=== PATIENT | male | born 1940 | race Hispanic/Latino ===

== ENCOUNTER 2016-07-10 14:55 | Inpatient (IN) | payer MEDICARE ==
[2016-07-10] MEDS ORDERED: Piperacillin/Tazobact 3.375 GM in Sodium Chloride 0.9% 100 ML IVPB STA (15:24)
[2016-07-10] MEDS ORDERED: Vancomycin 1 g Inj ONE ×2 (15:54→17:11)
--- NOTE | 2016-07-10 16:04 | RAD ---
HISTORY: Sepsis Patient COMPARISON: No prior. FINDINGS: LUNGS: No pulmonary infiltrate visualized. Minimal linear scar/ atelectasis at right lung base. There is an apparent nodular opacity at the right lung apex, overlapping the anterior end of the 1st rib. Evaluation with an apical lordotic radiograph is advised for further evaluation. Ultimately, CT examination may be necessary. PLEURA: No significant pleural effusion identified, no pneumothorax apparent. CARDIOVASCULAR: Normal. OSSEOUS STRUCTURES: No significant abnormalities. VISUALIZED UPPER ABDOMEN: Normal. OTHER FINDINGS: None. IMPRESSION: Nodular opacity in right lung apex obscured by anterior and right 1st rib. Recommend apical lordotic chest radiograph for further evaluation.
--- NOTE | 2016-07-10 16:33 | ED PDOC ---
Lower Extremity Pain/Injury Time Seen by Provider: 07/10/16 15:11 Chief Complaint (Nursing): Fever Chief Complaint (Provider): Fever History Per: Patient History/Exam Limitations: no limitations Onset/Duration Of Symptoms: Days Current Symptoms Are (Timing): Still Present Severity: Moderate Additional Complaint(s): Patient is a 75 year old male who presents to ED for right foot pain for 1 week. Pain is described as sharp to posterior foot with radiation up the leg. Notes pain has been worsening since onset associated with erythema and swelling that is also radiating up the leg now. Patient reports subjective fevers, dizziness and body aches, evaluated at podiatry office today with an area of the foot drained. I&D performed without complications but patient was found to be febrile in the office so he was referred to ED for further evaluation. Reports taking Aleve and Tramadol for his chronic lung CA pain. Denies trauma to the foot. History of Lung CA, under going immunotherapy in [place]. Past Medical History Reviewed: Historical Data, Nursing Documentation, Vital Signs Vital Signs: Last Vital Signs Temp 98.2 F 07/10/16 15:02 Pulse 98 H 07/10/16 15:02 Resp 18 07/10/16 15:02 BP 143/79 07/10/16 15:02 Pulse Ox 97 07/10/16 15:02 - Medical History PMH: HTN, Malignancy (Lung CA) - Surgical History Surgical History: No Surg Hx - Family History Family History: States: No Known Family Hx - Social History Current smoker - smoking cessation education provided: No Ex-Smoker (has not smoked in the last 12 months): No Drugs: Denies - Home Medications Home Medications: Ambulatory Orders Medication Instructions Recorded Acetaminophen/Codeine 10 ml PO DAILY PRN 07/10/16 [Tylenol/Codeine elixir] Benazepril HCl [Lotensin] 20 mg PO DAILY 07/10/16 Cephalexin [Keflex] 500 mg PO TID 07/10/16 Diclofenac Sodium [Voltaren] 1 appful ID DAILY 07/10/16 Enalapril Maleate [Vasotec] 20 mg PO DAILY 07/10/16 Mupirocin 2% Ointment [Bactroban 1 appful ID DAILY 07/10/16 Ointment] Naproxen Sodium [Aleve] 220 mg PO DAILY 07/10/16 Omeprazole Magnesium [Prilosec] 10 mg PO DAILY 07/10/16 Ondansetron ODT [Zofran ODT] 8 mg PO Q8 PRN 07/10/16 Prednisone [Prednisone] 10 mg PO DAILY 07/10/16 Tamsulosin [Flomax] 0.4 mg PO DAILY 07/10/16 Zolpidem [Ambien] 10 mg PO HS 07/10/16 amLODIPine [Norvasc] 5 mg PO DAILY 07/10/16 diaZEpam [Valium] 5 mg PO DAILY 07/10/16 hydroCHLOROthiazide [Hydrodiuril] 25 mg PO DAILY 07/10/16 traMADol [Ultram] 50 mg PO BID 07/10/16 - Allergies Allergies/Adverse Reactions: Allergies Allergy/AdvReac Type Severity Reaction Status Date / Time No Known Allergies Allergy Verified 07/10/16 15:02 Review of Systems ROS Statement: Except As Marked, All Systems Reviewed And Found Negative Constitutional: Positive for: Fever Cardiovascular: Negative for: Chest Pain, Palpitations Respiratory: Negative for: Shortness of Breath Gastrointestinal: Negative for: Nausea, Vomiting, Abdominal Pain Musculoskeletal: Positive for: Leg Pain, Foot Pain. Negative for: Neck Pain, Back Pain Neurological: Negative for: Weakness, Numbness Physical Exam - Reviewed Nursing Documentation Reviewed: Yes Vital Signs Reviewed: Yes - Physical Exam Appears: Positive for: Uncomfortable (mild painful distress ) Head Exam: Positive for: ATRAUMATIC, NORMOCEPHALIC Skin: Positive for: Normal Color, Warm, Dry Eye Exam: Positive for: EOMI, PERRL ENT: Negative for: Pharyngeal Erythema, Tonsillar Exudate Neck: Positive for: Normal, Painless ROM, Supple Cardiovascular/Chest: Positive for: Regular Rate, Rhythm, Chest Non Tender. Negative for: Murmur Respiratory: Positive for: Normal Breath Sounds. Negative for: Respiratory Distress Gastrointestinal/Abdominal: Positive for: Normal Exam (Protuberant). Negative for: Tenderness, Mass, Distended Back: Positive for: Normal Inspection. Negative for: Decreased ROM Extremity: Positive for: Normal ROM, Other (Right foot: (+)diffuse edema to foot primarily to dorsum foot and 3rd, 4th, 5th toes with erythema extending to anterior tibia.Open wound with drain to dorsum of 4th toe(+)warmth. Induration to the foot and lower leg, 1cm abrasion healed to anterior tibia ). Negative for: Pedal Edema, Calf Tenderness Neurologic/Psych: Positive for: Alert, Oriented. Negative for: Motor/Sensory Deficits - Laboratory Results Result Diagrams: 07/11/16 04:00 07/11/16 04:00 - ECG O2 Sat by Pulse Oximetry: 97 (RA) Pulse Ox Interpretation: Normal Medical Decision Making Medical Decision Making: Time: 1520 Initial impression: Right foot cellulitits. Concern for immunocompromised state due to therapy for CA. Needs hospitalization for aggressive antibiotic treatment , pending ER workup. Initial plan: -- VBG -- EKG -- CMP -- CRP -- Magnesium -- Phsophorous -- CBC -- ESR -- PT/PTT -- CXR -- Vanco and Zosyn -- Blood culture -- Urien culture -- Wound culture -- Cardiac monitoring -- Foot Xray -- U/A Case discussed Podiatry and Dr.Seman med hospital liaison. Agreed with plan and admission Scribe Attestation: Documented by Leeann Bass acting as a scribe for Loraine Wilder MD MD Scribe Attestation: All medical record entries made by the Scribe were at my direction and personally dictated by me. I have reviewed the chart and agree that the record accurately reflects my personal performance of the history, physical exam, medical decision making, and the department course for this patient. I have also personally directed, reviewed, and agree with the discharge instructions and disposition. Disposition - Clinical Impression Clinical Impression: Cellulitis, leg Counseled Patient/Family Regarding: Studies Performed, Diagnosis - Disposition Disposition Time: 15:30 Condition: GUARDED - Pt Status Changed To: Hospital Disposition Of: Inpatient - Admit Certification Admit to Inpatient:: After my assessment, the patient will require hospitalization for at least two midnights. This is because of the severity of symptoms shown, intensity of services needed, and/or the medical risk in this patient being treated as an outpatient. - POA Present On Arrival: Falls Or Trauma
[2016-07-10 17:00] LABS: VENOUS BLOOD GAS BASE EXCESS 6.4 mmol/L (0.0-2.0); VENOUS BLOOD GAS PCO2 48 mmHg (40-60); VENOUS BLOOD PH 7.43 (7.32-7.43)
[2016-07-10 17:02] LABS: BASO # 0.1 K/uL (0.0-0.2); BASO % 0.5 % (0.0-2.0); EOS # 0.1 K/uL (0.0-0.7); EOS % 0.4 % (0.0-4.0); HEMATOCRIT 44.3 % (35.0-51.0); LYMPH # 1.4 K/uL (1.0-4.3); LYMPH % 11.9 % (20.0-40.0); MEAN CORPUSCULAR HEMOGLOBIN 28.8 pg (27.0-31.0); MEAN CORPUSCULAR HGB CONC 32.8 g/dL (33.0-37.0); MEAN PLATELET VOLUME 8.1 fl (7.2-11.7); MONO # 1.1 K/uL (0.0-0.8); MONO % 9.5 % (0.0-10.0); NEUT # 9.3 K/uL (1.8-7.0); NEUT % 77.7 % (50.0-75.0); NRBC % 0.6 % (0.0-0.0); RED CELL DISTRIBUTION WIDTH 13.7 % (11.5-14.5)
[2016-07-10 17:08] LABS: ALB/GLOB RATIO 1.2 (1.0-2.1); ALKALINE PHOSPHATASE 81 U/L (38-126); ALT/SGPT 29 U/L (21-72); AST/SGOT 31 U/L (17-59); BILIRUBIN,TOTAL 1.1 mg/dl (0.2-1.3); BLOOD UREA NITROGEN 27 mg/dl (9-20); CALCIUM 9.3 mg/dL (8.4-10.2); CARBON DIOXIDE 27 mmol/L (22-30); CHLORIDE 95 mmol/L (98-107); GFR AFRICAN-AMERICAN > 60; GLUCOSE,RANDOM 93 mg/dL (75-110); MAGNESIUM 1.8 MG/DL (1.6-2.3); PHOSPHOROUS 3.4 mg/dl (2.5-4.5); POTASSIUM 4.5 MMOL/L (3.6-5.0); SODIUM 132 mmol/l (132-148); TOTAL PROTEIN 7.3 G/DL (6.3-8.2)
--- NOTE | 2016-07-10 17:17 | RAD ---
PROCEDURE: Right Foot Radiographs. HISTORY: foot infection COMPARISON: None. FINDINGS: BONES: There is erosion in the lateral cortex of the distal phalanx of the 4th digit. There is severe surrounding soft tissue swelling and soft tissue defect. JOINTS: There is mild degenerative osteoarthrosis in the distal interphalangeal joints of the 2nd and 3rd digits. Bone alignment and mineralization are normal. There is a prominent plantar calcaneal spur. SOFT TISSUES: Normal. OTHER FINDINGS: None. IMPRESSION: Findings are concerning for osteomyelitis in the lateral cortex of the distal phalanx of the 4th digit with cellulitis and probable soft tissue ulceration.
--- NOTE | 2016-07-10 17:28 | CP.PCM.CON ---
History of Present Illness - History of Present Illness History of Present Illness: PODIATRY CONSULT NOTE 75 year old male patient seen at bedside for righ foot redness, swelling, and 4th toe wound. Pt reports that he is undergoing immunotherapy. He states that he has a right 4th toe wound that is recurrent. Pt noted the active drainage of this wound starting Thursday. Pt followed up with his local area environmental studies department chair, Dr. Treadwell today, who drained the site in office and upon noting 103 degree fever, referred pt to [facility]. Pt deneis pain to the area at this time. Pt has no recent symptoms of n/v/cp/sob Past Patient History - Past Social History Smoking Status: Never Smoked - CARDIAC Hx Hypertension: Yes - PULMONARY Hx Lung Cancer: Yes - PSYCHIATRIC Hx Substance Use: No - SURGICAL HISTORY Hx Surgeries: Yes Other/Comment: lung biopsy - ANESTHESIA Hx Anesthesia: No Meds Allergies/Adverse Reactions: Allergies Allergy/AdvReac Type Severity Reaction Status Date / Time No Known Allergies Allergy Verified 07/10/16 15:02 Physical Exam - Constitutional Appears: Well, Non-toxic, No Acute Distress - Extremities Exam Additional comments: Right lower extremity focused. VASC: DP pulse weakly palpable secondary to pitting edema, PT pulses is fully palpable graded 2/4. Non pitting edema noted to dorsal aspect of right foot extending to rear-foot. Capillary refill time to 4th and 5th digits was immediate, <3 seconds to remaining digits. DERM: 0.5x0.5x0.7cm wound noted to plantar-distal tuft of 4th digit. Entire digits is significantly edematous. Blanchable erythema from this site extends proximally along dorsal and lateral aspects of foot to the level of the mid- tarsal joins. No crepitus noted, no active drainage at this time. Positive probe -to-bone. No mal-odor or purulence noted a this time. No hyperpigmentations or inter-digital macerations noted. NEURO: Protective sensation grossly absent at level of digits. ORTHO: No gross deformities noted. Pedal muscle strenght in 4 major pedal muscle groups is graded 5/5. - Neurological Exam Neurological exam: Alert, Oriented x3 - Psychiatric Exam Psychiatric exam: Normal Affect, Normal Mood Results - Vital Signs Recent Vital Signs: Last Vital Signs Temp 98.2 F 07/10/16 15:02 Pulse 98 H 07/10/16 15:02 Resp 18 07/10/16 15:02 BP 143/79 07/10/16 15:02 Pulse Ox 97 07/10/16 16:45 - Labs Result Diagrams: 07/10/16 16:47 07/10/16 16:57 Labs: Laboratory Results - last 24 hr 07/10/16 07/10/16 07/10/16 16:47 16:50 16:57 WBC 12.0 H RBC 5.03 Hgb 14.5 Hct 44.3 MCV 88.0 MCH 28.8 MCHC 32.8 L RDW 13.7 Plt Count 254 MPV 8.1 Neut % (Auto) 77.7 H Lymph % (Auto) 11.9 L Stevens % (Auto) 9.5 Eos % (Auto) 0.4 Baso % (Auto) 0.5 Neut # 9.3 H Lymph # 1.4 Stevens # 1.1 H Eos # 0.1 Baso # 0.1 pO2 25 L VBG pH 7.43 VBG pCO2 48 VBG HCO3 28.6 VBG Total CO2 33.4 H VBG O2 Sat (Calc) 50.4 VBG Base Excess 6.4 H VBG Potassium 4.4 Sodium 131.0 L 132 Chloride 100.0 95 L Glucose 96 Lactate 1.3 FiO2 21.0 Potassium 4.5 Carbon Dioxide 27 Anion Gap 15 BUN 27 H Creatinine 1.1 Est GFR ( Amer) > 60 Est GFR (Non-Af Amer) > 60 Random Glucose 93 Calcium 9.3 Phosphorus 3.4 Magnesium 1.8 Total Bilirubin 1.1 AST 31 ALT 29 Alkaline Phosphatase 81 Total Protein 7.3 Albumin 4.0 Globulin 3.3 Albumin/Globulin Ratio 1.2 Venous Blood Potassium 4.4 Assessment & Plan - Assessment and Plan (Free Text) Assessment: 75 year old male with right foot Guadalupe grade 3 ulceration to left foot, w/ cellulits. Plan: Pt seen and evaluated. Chart, labs, and vitals reviewed. Discussed with attending Dr. Treadwell. Pt afebrile, WBC=12. Radiographs ordered. ESR-pending. Wound culture of right foot obtained. -Patient admitted. -ID consulted. -Flushed wound w/ Betadine:saline mix, dressed with 1/4" plain packing, DSD. -Pt to remain weighting as tolerated w/ post-op shoe. -Continue IV abx-Vanco/Zosyn for broad coverage until Infectious disease recommendations are placed Podiatry will follw patient while inhouse. - Date & Time Date: 07/10/16 Time: 16:00
[2016-07-10] MEDS ORDERED: Piperacillin/Tazobact 3.375 gm Inj IVPB ONE (17:51)
--- NOTE | 2016-07-10 19:50 | CP.PCM.PN ---
Subjective - Date & Time of Evaluation Date of Evaluation: 07/10/16 Time of Evaluation: 19:45 - Subjective Subjective: id note patient examined ,chart reviewed vancomycin/zosyn started await cultures full consult to follow Objective - Vital Signs/Intake and Output Vital Signs (last 24 hours): Temp Pulse Resp BP Pulse Ox 98.6 F 80 19 117/76 95 07/10/16 18:35 07/10/16 18:35 07/10/16 18:35 07/10/16 18:35 07/10/16 18:04 - Medications Medications: Current Medications Vancomycin HCl 1 gm/ Sodium (Chloride) 250 mls @ 166.667 mls/hr IVPB Q12 [facility] Piperacillin Sod/Tazobactam (Sod 3.375 gm/ Sodium Chloride) 100 mls @ 100 mls/ hr IVPB Q6 [facility] - Labs Labs: PT 11.5 SECONDS (9.6-11.2) H 07/10/16 16:47 INR 1.11 (0.92-1.08) H 07/10/16 16:47 APTT 35.0 SECONDS (23.3-32.5) H 07/10/16 16:47
--- NOTE | 2016-07-10 21:23 | CP.PCM.HP ---
History of Present Illness - History of Present Illness History of Present Illness: Patient is a 75 year old male who presents to ED for right foot pain for 1 week. Pain is described as sharp to posterior foot with radiation up the leg. Notes pain has been worsening since onset associated with erythema and swelling that is also radiating up the leg now. Patient reports subjective fevers, dizziness and body aches, evaluated at podiatry office today with an area of the foot drained. I&D performed without complications but patient was found to be febrile in the office so he was referred to ED for further evaluation. Reports taking Aleve and Tramadol for his chronic lung CA pain. Denies trauma to the foot. Past Patient History - Past Social History Smoking Status: Never Smoked - CARDIAC Hx Cardiac Disorders: Yes - PULMONARY Hx Respiratory Disorders: Yes - PSYCHIATRIC Hx Substance Use: No - SURGICAL HISTORY Hx Surgeries: Yes Other/Comment: lung biopsy - ANESTHESIA Hx Anesthesia: No Meds Home Medications: Home Medication List Medication Instructions Recorded Confirmed Type Meropenem [Merrem IV] 1 gm IVPB Q12 #30 vial 07/14/16 07/16/16 Rx Vancomycin 750mg [Vancomycin 750 750 mg IVPB DAILY #120 bag 07/14/16 07/16/16 Rx mg in NS] Allergies/Adverse Reactions: Allergies Allergy/AdvReac Type Severity Reaction Status Date / Time No Known Allergies Allergy Verified 07/14/16 16:52 Results - Vital Signs Recent Vital Signs: Last Vital Signs Temp 98.6 F 07/10/16 18:35 Pulse 80 07/10/16 18:35 Resp 19 07/10/16 18:35 BP 117/76 07/10/16 18:35 Pulse Ox 95 07/10/16 18:04 - Labs Result Diagrams: 07/14/16 05:40 07/12/16 06:30 Assessment & Plan (1) Cellulitis, leg Status: Acute
[2016-07-10] MEDS ORDERED: Sodium Chloride 0.45% 1,000 ML IV SCH (21:30)
[2016-07-10] MEDS: Piperacillin/Tazobact 3.375 GM in Sodium Chloride 0.9% 100 ML IVPB SCH (21:57)
[2016-07-11 00:16] LABS: RBC URINE 2 /hpf (0-3); URINE BILIRUBIN NEGATIVE (NEGATIVE); URINE BLOOD NEGATIVE (NEGATIVE); URINE COLOR AMBER (YELLOW); URINE GLUCOSE (UA) NEG (Normal); URINE KETONE TRACE mg/dL (NEGATIVE); URINE LEUKOCYTE ESTERASE NEG Leu/uL (Negative); URINE PROTEIN 30 mg/dL (NEGATIVE); URINE UROBILINOGEN 0.2-1.0 mg/dL (0.2-1.0); WBC URINE 1 /hpf (0-5)
[2016-07-11 04:58] LABS: BASO % 0.5 % (0.0-2.0); EOS # 0.2 K/uL (0.0-0.7); EOS % 2.3 % (0.0-4.0); HEMATOCRIT 41.1 % (35.0-51.0); LYMPH # 1.6 K/uL (1.0-4.3); LYMPH % 16.2 % (20.0-40.0); MEAN CELL VOLUME 87.3 fl (80.0-94.0); MEAN CORPUSCULAR HEMOGLOBIN 29.3 pg (27.0-31.0); MEAN CORPUSCULAR HGB CONC 33.6 g/dL (33.0-37.0); MEAN PLATELET VOLUME 7.9 fl (7.2-11.7); MONO # 1.1 K/uL (0.0-0.8); MONO % 11.1 % (0.0-10.0); NEUT # 6.9 K/uL (1.8-7.0); NEUT % 69.9 % (50.0-75.0); NRBC % 0.1 % (0.0-0.0); PLATELET COUNT 224 K/uL (130-400); RED CELL DISTRIBUTION WIDTH 13.6 % (11.5-14.5); WHITE BLOOD COUNT 9.8 K/uL (4.8-10.8)
[2016-07-11 05:08] LABS: BLOOD UREA NITROGEN 23 mg/dl (9-20); CALCIUM 9.1 mg/dL (8.4-10.2); CARBON DIOXIDE 27 mmol/L (22-30); CHLORIDE 98 mmol/L (98-107); GFR AFRICAN-AMERICAN > 60; GLUCOSE,RANDOM 106 mg/dL (75-110); POTASSIUM 4.4 MMOL/L (3.6-5.0); SODIUM 138 mmol/l (132-148)
[2016-07-11] MEDS: Piperacillin/Tazobact 3.375 GM in Sodium Chloride 0.9% 100 ML IVPB SCH ×4 (05:10→21:02)
[2016-07-11 06:14] LABS: ERYTHROCYTE SEDIMENTATION RATE QNS mm/hr (0-20)
--- NOTE | 2016-07-11 07:58 | CARD ---
APPROVED REPORT EKG Measurement Heart [id number] <Conclusion> Sinus rhythm with 1st degree AV block Anteroseptal infarct, age undetermined Abnormal ECG
--- NOTE | 2016-07-11 09:31 | CP.PCM.PN ---
Subjective - Date & Time of Evaluation Date of Evaluation: 07/11/16 Time of Evaluation: 09:00 - Subjective Subjective: 75 year old male patient seen at bedside for scheduled surgery of Right foot incision and drainage. Patient was seen at Dr. Treadwell's office yesterday and was referred to hospital for right foot abscess and cellulitis. Dr. Treadwell did emergency bedside I&D at his office yesterday and patient requires surgical I&D in the OR today. Patient was informed of the situation and agrees with the surgery plan of right foot incision and drainage, and right 4th toe amputation. Patient confirms NPO since last night. Pt has no recent symptoms of n/v/cp/sob Objective - Vital Signs/Intake and Output Vital Signs (last 24 hours): Temp Pulse Resp BP Pulse Ox 98.5 F 76 20 130/77 97 07/10/16 21:56 07/10/16 21:56 07/10/16 21:56 07/10/16 21:56 07/10/16 21:56 - Medications Medications: Current Medications Amlodipine Besylate (Norvasc) 5 mg PO DAILY [facility] Enalapril Maleate (Vasotec) 20 mg PO DAILY [facility] Enoxaparin Sodium (Lovenox) 40 mg SC DAILY [facility] PRN Reason: Protocol Piperacillin Sod/Tazobactam (Sod 3.375 gm/ Sodium Chloride) 100 mls @ 100 mls/ hr IVPB Q6 [facility] Last Admin: 07/11/16 05:10 Dose: 100 mls/hr Sodium Chloride (Sodium Chloride 0.45%) 1,000 mls @ 100 mls/hr IV .Q10H [facility] Stop: 07/11/16 21:31 Last Admin: 07/10/16 21:57 Dose: 100 mls/hr Vancomycin HCl 1 gm/ Sodium (Chloride) 250 mls @ 166.667 mls/hr IVPB Q12@0400, 1600 [facility] Last Admin: 07/11/16 04:17 Dose: 166.667 mls/hr Ketorolac Tromethamine (Toradol) 15 mg IM Q6 PRN PRN Reason: Pain, moderate (4-7) Ondansetron HCl (Zofran Odt) 8 mg PO Q8 PRN PRN Reason: nausea Pantoprazole Sodium (Protonix Inj) 40 mg IVP DAILY [facility] Prednisone (Prednisone Tab) 10 mg PO DAILY [facility] Tamsulosin HCl (Flomax) 0.4 mg PO DAILY [facility] Tramadol HCl (Ultram) 50 mg PO BID [facility] Zolpidem Tartrate (Ambien) 5 mg PO HS PRN PRN Reason: Insomnia Last Admin: 07/10/16 22:00 Dose: 5 mg - Labs Labs: 07/11/16 04:00 07/11/16 04:00 PT 11.5 SECONDS (9.6-11.2) H 07/10/16 16:47 INR 1.11 (0.92-1.08) H 07/10/16 16:47 APTT 35.0 SECONDS (23.3-32.5) H 07/10/16 16:47 - Constitutional Appears: Well, Non-toxic, No Acute Distress - Extremities Exam Additional comments: Dressing to right foot remains cdi - Neurological Exam Neurological Exam: Alert, Awake, Oriented x3 - Psychiatric Exam Psychiatric exam: Normal Affect, Normal Mood - Skin Skin Exam: Normal Color, Warm Assessment and Plan - Assessment and Plan (Free Text) Assessment: 75 yo male patient with PMHx of lung cancer and HTN presents with Right foot Osteomyelitis to 4th digit, abscess, cellulitis Plan: Pt was seen and examined in SDS Pt NPO status was confirmed All Pre-op testing and clearance was in the chart Pt has exhausted all conservative treatment at this time and is opting for surgical intervention Pt was explained procedure and post-operative course All pt's questions were answered to satisfaction No guarantees were made Pt understands all risks, benefits and complications of procedure Pt will follow-up with Dr. Treadwell Patient scheduled for Right foot Incision and drainage with possible 4th digit Amputation at 3PM this afternoon. Awaiting for Cardiology clearance. EKG result updated. Dr. Nessa agustin. Referred to Dr. Franco for clearance.
[2016-07-11] MEDS: Enoxaparin 40 mg Syringe SC SCH (10:22)
[2016-07-11] MEDS ORDERED: ceFAZolin 1 GM in Sodium Chloride 0.9% 100 ML IVPB ONE (14:39)
[2016-07-11] MEDS ORDERED: Lidocaine 1% Inj (20ml) IJ ONE ×2 (14:39→16:50)
[2016-07-11] MEDS ORDERED: Bupivacaine 0.5% 50 ML IJ ONE (14:39)
--- NOTE | 2016-07-11 15:37 | CON ---
DATE: 07/11/2016 REASON FOR CONSULTATION: Preoperative evaluation as well as hypertension. HISTORY OF PRESENT ILLNESS: The patient is a 75-year-old male who has a history of hypertension, was recently diagnosed with lung CA, underwent Imuran therapy according to the patient in a [place] institution. The patient lives in [place]. He has an apartment in [place] and he presented because of right foot pain, swelling, and infection. The patient stated that 2 months ago he had some cleaning surgery by his manager control in the local office in [place]. The patient denies any prior cardiac history and stated that he underwent recent stress test as part of his evaluation for left knee replacement and was normal. The patient denies any retrosternal chest pain. The patient did experience fever, but is unaware of any chills. MEDICATIONS: Ambien 5 mg at bedtime, Lovenox 40 mg subcutaneous daily, Norvasc 5 mg once a day, Zosyn 3.375 grams intravenously q. 6 hours, prednisone 10 mg daily, Protonix 40 mg intravenously daily, half normal saline 100 mL an hour, vancomycin 1 gram intravenously twice a day, Vasotec 20 mg once a day, Zofran 8 mg p.o. q. 8 hours p.r.n. REVIEW OF SYSTEMS: No vomiting or diarrhea. No dizziness or syncope. No palpitation. PHYSICAL EXAMINATION: GENERAL: The patient is an elderly male who does not appear to be in any distress. VITAL SIGNS: Blood pressure 130/77, heart rate 76, temperature 98.5, respirations 20. HEENT: Normocephalic. NECK: No JVD. CHEST: Clear. HEART: S1, S2 regular. ABDOMEN: Soft. EXTREMITIES: Dressings applied to right foot. LABORATORY DATA: SMA-7: Sodium 138, potassium 4.4, chloride 98, CO2 27, glucose 106, BUN 23, creatinine 1.2. INR is 1.11, PTT 35. Hemoglobin and hematocrit 13.8 and 41.1, platelet count and white count are within normal limit. EKG revealed sinus rhythm, consider old anteroseptal MS. X-ray of the right foot revealed findings are concerning for osteomyelitis in the lateral cortex of the distal phalanx of the fifth digit with cellulitis and probable soft tissue ulceration. ASSESSMENT: 1. Questionable osteomyelitis of the distal 4th_ right digit with adjacent cellulitis and possible ischemic ulceration. 2. Hypertension. 3. History of lung carcinoma status post Immune therapy.as per patient RECOMMENDATIONS: Continue current subcutaneous Lovenox at 40 mg once a day. Continue IV Zosyn and IV vancomycin. Continue Vasotec 20 mg once a day and Norvasc at 5 mg once a day. I requested and will review the echocardiographic study to rule out any cardiac involvement with Lung CA, to be performed prior to clearing the patient for surgery. Discussed with Dr. Szymanski Jakob Franco MD cc: [id number] TT: 07/11/2016 12:35:08 Confirmation # [id number] Dictation # [id number] jn MTDD
[2016-07-11] MEDS ORDERED: Lidocaine 1% Inj (20ml) ONE (15:43)
[2016-07-11] MEDS ORDERED: Bupivacaine 0.5% Inj(30mL) ONE (15:44)
--- NOTE | 2016-07-11 15:51 | PN ---
DATE: 07/11/2016 The podiatry resident, Kerrie, has contacted me to clear the patient for surgery and I stated that an echocardiograph study has to be done prior to the surgery. However, I was told that after discuss ing the case with anesthesiologist, the podiatry team concluded that no cardiology clearance is neede d. The cardiology consult was subsequently canceled and I consider myself at this point not followin g up the patient based on their cancellation request. Jakob Franco MD cc: [id number] TT: 07/11/2016 15:50:30 Confirmation # [id number] Dictation # [id number]
[2016-07-11] MEDS ORDERED: Vancomycin 1 g Inj IVPB ONE (16:00)
[2016-07-11] MEDS ORDERED: Sodium Chloride 0.45% 1,000 ML IV ONE (16:37)
--- NOTE | 2016-07-11 17:19 | PCM.SURG1 ---
Surgeon's Initial Post Op Note - Surgeon's Notes Surgeon: Dr. Wagner Treadwell, DPM Technical Spec: Nancy Bai, PGY1 Type of Anesthesia: Local Anesthesia Administered By: none Pre-Operative Diagnosis: Right foot 4th digits osetomyelitis, abscsess, and cellulitis Operative Findings: See dictation. A: 9ml of 1% lidocaine plain. M:3-0 prolene , 1/4" plain packing Post-Operative Diagnosis: Same as above Operation Performed: Rigth fourth digit partial amputation w/ pulse lavage. Specimen/Specimens Removed: Pathology- Right 4th digit bone and soft tissue. Microbiology- Right 4th digit, head of proximal phalynx Estimated Blood Loss: EBL {In ML}: 5 Blood Products Given: N/A Post-Op Condition: Good Date of Surgery/Procedure: 07/11/16 Time of Surgery/Procedure: 15:40
--- NOTE | 2016-07-11 18:18 | RAD ---
Indication: Status post right foot surgery Right foot radiographs Comparison: Right 4th digit radiographs performed 07/10/16 Findings: Status post amputation of the 4th digit at the level of the mid proximal phalanx. Soft tissue swelling. Remainder of the visualized osseous structures appear intact. Degenerative changes. Evidence of radiopaque foreign body. Impression: Status post amputation of the 4th digit at the level of the mid proximal phalanx. Soft tissue swelling.
--- NOTE | 2016-07-12 00:44 | CP.PCM.PN ---
Subjective - Date & Time of Evaluation Date of Evaluation: 07/11/16 Time of Evaluation: 22:55 Objective - Vital Signs/Intake and Output Vital Signs (last 24 hours): Temp Pulse Resp BP Pulse Ox 98.7 F 69 20 113/61 98 07/11/16 22:45 07/11/16 20:00 07/11/16 20:00 07/11/16 20:00 07/11/16 20:00 Intake and Output: 07/11/16 07/12/16 18:59 06:59 Intake Total 100 Balance 100 - Medications Medications: Current Medications Amlodipine Besylate (Norvasc) 5 mg PO DAILY [facility] Last Admin: 07/11/16 10:23 Dose: Not Given Enalapril Maleate (Vasotec) 20 mg PO DAILY [facility] Last Admin: 07/11/16 10:26 Dose: Not Given Enoxaparin Sodium (Lovenox) 40 mg SC DAILY [facility] PRN Reason: Protocol Last Admin: 07/11/16 10:22 Dose: Not Given Piperacillin Sod/Tazobactam (Sod 3.375 gm/ Sodium Chloride) 100 mls @ 100 mls/ hr IVPB Q6 [facility] Last Admin: 07/11/16 21:02 Dose: 100 mls/hr Vancomycin HCl 1 gm/ Sodium (Chloride) 250 mls @ 166.667 mls/hr IVPB Q12@0400, 1600 [facility] Last Admin: 07/11/16 18:18 Dose: Not Given Ketorolac Tromethamine (Toradol) 15 mg IM Q6 PRN PRN Reason: Pain, moderate (4-7) Last Admin: 07/11/16 20:36 Dose: 15 mg Ondansetron HCl (Zofran Odt) 8 mg PO Q8 PRN PRN Reason: nausea Pantoprazole Sodium (Protonix Inj) 40 mg IVP DAILY [facility] Last Admin: 07/11/16 10:24 Dose: 40 mg Prednisone (Prednisone Tab) 10 mg PO DAILY [facility] Last Admin: 07/11/16 10:24 Dose: Not Given Tamsulosin HCl (Flomax) 0.4 mg PO DAILY [facility] Last Admin: 07/11/16 10:22 Dose: Not Given Tramadol HCl (Ultram) 50 mg PO BID [facility] Last Admin: 07/11/16 18:19 Dose: Not Given Zolpidem Tartrate (Ambien) 5 mg PO HS PRN PRN Reason: Insomnia Last Admin: 07/11/16 22:41 Dose: 5 mg - Labs Labs: 07/11/16 04:00 07/11/16 04:00 PT 11.5 SECONDS (9.6-11.2) H 07/10/16 16:47 INR 1.11 (0.92-1.08) H 07/10/16 16:47 APTT 35.0 SECONDS (23.3-32.5) H 07/10/16 16:47 Assessment and Plan (1) Cellulitis, leg Status: Acute
[2016-07-12] MEDS: Piperacillin/Tazobact 3.375 GM in Sodium Chloride 0.9% 100 ML IVPB SCH ×3 (04:59→17:22)
--- NOTE | 2016-07-12 07:27 | CP.PCM.PN ---
Subjective - Date & Time of Evaluation Date of Evaluation: 07/12/16 Time of Evaluation: 07:25 - Subjective Subjective: 75 year old male was seen at bedside resting comfortably with attending, Dr. Treadwell, 1 day s/p right 4th digit partial amputation. Last night, strikethrough was noted on dressing and dressing was changed. This morning, no strikethrough was present. Patient is in no acute distress, AAOx3. Patient admits to some intermittent pain, and states that the pain medicine helps. He denies n/v/f/c/sob/cp. Objective - Vital Signs/Intake and Output Vital Signs (last 24 hours): Temp Pulse Resp BP Pulse Ox 98.7 F 69 20 100/50 L 96 07/12/16 04:00 07/12/16 04:00 07/12/16 04:00 07/12/16 04:00 07/12/16 04:00 - Medications Medications: Current Medications Amlodipine Besylate (Norvasc) 5 mg PO DAILY [facility] Last Admin: 07/11/16 10:23 Dose: Not Given Enalapril Maleate (Vasotec) 20 mg PO DAILY [facility] Last Admin: 07/11/16 10:26 Dose: Not Given Enoxaparin Sodium (Lovenox) 40 mg SC DAILY [facility] PRN Reason: Protocol Last Admin: 07/11/16 10:22 Dose: Not Given Piperacillin Sod/Tazobactam (Sod 3.375 gm/ Sodium Chloride) 100 mls @ 100 mls/ hr IVPB Q6 [facility] Last Admin: 07/12/16 04:59 Dose: 100 mls/hr Vancomycin HCl 1 gm/ Sodium (Chloride) 250 mls @ 166.667 mls/hr IVPB Q12@0400, 1600 [facility] Last Admin: 07/12/16 03:25 Dose: 166.667 mls/hr Ketorolac Tromethamine (Toradol) 15 mg IM Q6 PRN PRN Reason: Pain, moderate (4-7) Last Admin: 07/11/16 20:36 Dose: 15 mg Ondansetron HCl (Zofran Odt) 8 mg PO Q8 PRN PRN Reason: nausea Pantoprazole Sodium (Protonix Inj) 40 mg IVP DAILY [facility] Last Admin: 07/11/16 10:24 Dose: 40 mg Prednisone (Prednisone Tab) 10 mg PO DAILY [facility] Last Admin: 07/11/16 10:24 Dose: Not Given Tamsulosin HCl (Flomax) 0.4 mg PO DAILY [facility] Last Admin: 07/11/16 10:22 Dose: Not Given Tramadol HCl (Ultram) 50 mg PO BID [facility] Last Admin: 07/11/16 18:19 Dose: Not Given Zolpidem Tartrate (Ambien) 5 mg PO HS PRN PRN Reason: Insomnia Last Admin: 07/11/16 22:41 Dose: 5 mg - Labs Labs: 07/11/16 04:00 07/11/16 04:00 PT 11.5 SECONDS (9.6-11.2) H 07/10/16 16:47 INR 1.11 (0.92-1.08) H 07/10/16 16:47 APTT 35.0 SECONDS (23.3-32.5) H 07/10/16 16:47 - Constitutional Appears: Well, Non-toxic, No Acute Distress - Extremities Exam Additional comments: Right lower extremity focused. VASC: DP pulse weakly palpable secondary to pitting edema, PT pulses is palpable graded 2/4. Non pitting edema noted to dorsal aspect of right foot extending to rear-foot. Capillary refill time to 4th and 5th digits was immediate, <3 seconds to remaining digits. DERM: 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 site noted with sutures intact, no drainage noted. No malodor noted. Blanchable erythema from this site extends proximally along dorsal and lateral aspects of foot to the level of the midfoot. No crepitus noted, no active drainage at this time. No mal-odor or purulence noted a this time. NEURO: Protective sensation grossly absent at level of digits. ORTHO: No gross deformities noted. - Neurological Exam Neurological Exam: Alert, Awake, Oriented x3 - Psychiatric Exam Psychiatric exam: Normal Affect, Normal Mood Assessment and Plan - Assessment and Plan (Free Text) Assessment: 75 year old male with 1 day s/p 4th digit partial amputation Plan: Patient examined and evaluated. Chart, labs, and vitals reviewed. Discussed with attending Dr. Treadwell. Right foot dressed with sterile gauze, ABD, kerlix. Patient to remain non-WB to his right foot Continue IV abx-Vanco/Zosyn for broad coverage until Infectious disease recommendations are placed Continue pain medication ESR to be ordered for Thursday Follow up cultures from OR Physical therapy- non-WB to RLE with surgical shoe Podiatry will continue to follow patient while in house
[2016-07-12 08:23] LABS: BLOOD UREA NITROGEN 22 mg/dl (9-20); CARBON DIOXIDE 25 mmol/L (22-30); CHLORIDE 101 mmol/L (98-107); GFR AFRICAN-AMERICAN > 60; GLUCOSE,RANDOM 100 mg/dL (75-110); SODIUM 138 mmol/l (132-148)
[2016-07-12 08:27] LABS: HEMATOCRIT 40.7 % (35.0-51.0); MEAN CELL VOLUME 87.8 fl (80.0-94.0); MEAN CORPUSCULAR HEMOGLOBIN 29.4 pg (27.0-31.0); MEAN CORPUSCULAR HGB CONC 33.4 g/dL (33.0-37.0); RED CELL DISTRIBUTION WIDTH 13.6 % (11.5-14.5); WHITE BLOOD COUNT 7.4 K/uL (4.8-10.8)
[2016-07-12] MEDS: Enoxaparin 40 mg Syringe SC SCH (09:02)
--- NOTE | 2016-07-12 13:14 | CARD ---
APPROVED REPORT EXAM: Two-dimensional and M-mode echocardiogram with Doppler and color Doppler. Other Information Quality : AverageRhythm : NSR INDICATION Pre-Op 2D DIMENSIONS RVDd3.57 (2.9-3.5cm)Left Atrium (2D)3.64 (1.6-4.0cm) IVSd1.39 (0.7-1.1cm)Aortic Root (2D)3.28 (2.0-3.7cm) LVDd4.46 (3.9-5.9cm)PWd1.33 (0.7-1.1cm) IVSs1.70 (0.8-1.2cm)LVDs1.86 (2.5-4.0cm) FS (%) 58.2 %PWs1.70 (0.8-1.2cm) LVEF (%)80.0 (>50%) M-Mode DIMENSIONS Left Atrium (MM)3.86 (2.5-4.0cm)IVSd1.40 (0.7-1.1cm) Aortic Root3.05 (2.2-3.7cm)LVDd4.63 (4.0-5.6cm) Aortic Cusp Exc.2.28 (1.5-2.0cm)PWd1.62 (0.7-1.1cm) MV EPSS0.6 (<0.5cm)IVSs1.84 cm FS (%) 36 %LVDs2.98 (2.0-3.8cm) PWs1.88 cmLVEF (%)65 (>50%) Mitral Valve E/A ratio0.0 TDI Lateral E' Peak V9.04cm/sMedial E' Peak V6.36cm/sE/Lateral E'0.0 E/Medial E'0.0 Tricuspid Valve TR Peak [id number] [id number] Peak Gr.14mmHg [id number] LEFT VENTRICLE The left ventricle is normal size. There is normal left ventricular wall thickness. Left ventricle systolic function is normal. The Ejection Fraction is 60-65%. There is normal LV segmental wall motion. Transmitral Doppler flow pattern is Grade I-abnormal relaxation pattern. RIGHT VENTRICLE The right ventricle is normal size. There is normal right ventricular wall thickness. The right ventricular systolic function is normal. ATRIA The left atrium size is normal. The right atrium size is normal. AORTIC VALVE The aortic valve is normal in structure and function. No aortic regurgitation is present. There is no aortic valvular stenosis. MITRAL VALVE The mitral valve is normal in structure. There is no evidence of mitral valve prolapse. There is no mitral valve stenosis. Mitral regurgitation is mild. TRICUSPID VALVE The tricuspid valve is normal in structure. There is mild tricuspid regurgitation. Right ventricular systolic pressure is estimated at 24 mmHg. There is no pulmonary hypertension. PULMONIC VALVE The pulmonary valve is normal in structure and function. There is no pulmonic valvular regurgitation. GREAT VESSELS The aortic root is normal in size. The IVC is normal in size and collapses >50% with inspiration. PERICARDIAL EFFUSION The pericardium appears normal. <Conclusion> The left ventricle is normal size. There is normal left ventricular wall thickness. There is normal LV segmental wall motion. Left ventricle systolic function is normal. The Ejection Fraction is 60-65%. Transmitral Doppler flow pattern is Grade I-abnormal relaxation pattern.
[2016-07-12 16:57] VITALS: RESP 20
--- NOTE | 2016-07-12 18:06 | CP.PCM.PN ---
Subjective - Date & Time of Evaluation Date of Evaluation: 07/12/16 Time of Evaluation: 18:03 - Subjective Subjective: ID NOTE PATIENT C INFECTED 4TH TOE ON RIGHT.HAD PARTIAL AMPUTATION HAD OSTEOMYELITIS AND ABSCESS WOUND GREW STAPH AUREUS c GOOD SENSITVITIES HAVE ADJUSTED DOSE OF VANCOMYCIN WILL D/C ZOSYN START MEROPENEM Objective - Vital Signs/Intake and Output Vital Signs (last 24 hours): Temp Pulse Resp BP Pulse Ox 98.8 F 72 20 126/75 98 07/12/16 16:56 07/12/16 16:56 07/12/16 16:56 07/12/16 16:56 07/12/16 16:56 - Medications Medications: Current Medications Amlodipine Besylate (Norvasc) 5 mg PO DAILY [facility] Last Admin: 07/12/16 09:03 Dose: 5 mg Enalapril Maleate (Vasotec) 20 mg PO DAILY [facility] Last Admin: 07/12/16 09:04 Dose: 20 mg Enoxaparin Sodium (Lovenox) 40 mg SC DAILY [facility] PRN Reason: Protocol Last Admin: 07/12/16 09:02 Dose: 40 mg Piperacillin Sod/Tazobactam (Sod 3.375 gm/ Sodium Chloride) 100 mls @ 100 mls/ hr IVPB Q6 [facility] Last Admin: 07/12/16 17:22 Dose: 100 mls/hr Vancomycin HCl 750 gm/ Sodium (Chloride) 250 mls @ 166.667 mls/hr IVPB Q12@0400 ,1600 [facility] Ketorolac Tromethamine (Toradol) 15 mg IM Q6 PRN PRN Reason: Pain, moderate (4-7) Last Admin: 07/11/16 20:36 Dose: 15 mg Ondansetron HCl (Zofran Odt) 8 mg PO Q8 PRN PRN Reason: nausea Pantoprazole Sodium (Protonix Inj) 40 mg IVP DAILY [facility] Last Admin: 07/12/16 09:04 Dose: 40 mg Prednisone (Prednisone Tab) 10 mg PO DAILY [facility] Last Admin: 07/12/16 09:04 Dose: 10 mg Tamsulosin HCl (Flomax) 0.4 mg PO DAILY [facility] Last Admin: 07/12/16 09:02 Dose: 0.4 mg Tramadol HCl (Ultram) 50 mg PO BID [facility] Last Admin: 07/12/16 16:30 Dose: 50 mg Zolpidem Tartrate (Ambien) 5 mg PO HS PRN PRN Reason: Insomnia Last Admin: 07/11/16 22:41 Dose: 5 mg - Labs Labs: 07/12/16 06:30 07/12/16 06:30 PT 11.5 SECONDS (9.6-11.2) H 07/10/16 16:47 INR 1.11 (0.92-1.08) H 07/10/16 16:47 APTT 35.0 SECONDS (23.3-32.5) H 07/10/16 16:47
[2016-07-12] MEDS: Meropenem 1 GM in Sodium Chloride 0.9% 100 ML IVPB SCH (20:42)
--- NOTE | 2016-07-13 00:19 | CP.PCM.PN ---
Subjective - Date & Time of Evaluation Date of Evaluation: 07/12/16 Time of Evaluation: 18:40 Objective - Vital Signs/Intake and Output Vital Signs (last 24 hours): Temp Pulse Resp BP Pulse Ox 98.4 F 65 20 113/69 95 07/12/16 22:42 07/12/16 22:42 07/12/16 22:42 07/12/16 22:42 07/12/16 22:42 - Medications Medications: Current Medications Amlodipine Besylate (Norvasc) 5 mg PO DAILY [facility] Last Admin: 07/12/16 09:03 Dose: 5 mg Enalapril Maleate (Vasotec) 20 mg PO DAILY [facility] Last Admin: 07/12/16 09:04 Dose: 20 mg Enoxaparin Sodium (Lovenox) 40 mg SC DAILY [facility] PRN Reason: Protocol Last Admin: 07/12/16 09:02 Dose: 40 mg Vancomycin HCl 750 gm/ Sodium (Chloride) 250 mls @ 166.667 mls/hr IVPB Q12@0400 ,1600 [facility] Meropenem 1 gm/ Sodium (Chloride) 100 mls @ 100 mls/hr IVPB Q12H [facility] Last Admin: 07/12/16 20:42 Dose: 100 mls/hr Ketorolac Tromethamine (Toradol) 15 mg IM Q6 PRN PRN Reason: Pain, moderate (4-7) Last Admin: 07/11/16 20:36 Dose: 15 mg Ondansetron HCl (Zofran Odt) 8 mg PO Q8 PRN PRN Reason: nausea Pantoprazole Sodium (Protonix Inj) 40 mg IVP DAILY [facility] Last Admin: 07/12/16 09:04 Dose: 40 mg Prednisone (Prednisone Tab) 10 mg PO DAILY [facility] Last Admin: 07/12/16 09:04 Dose: 10 mg Tamsulosin HCl (Flomax) 0.4 mg PO DAILY [facility] Last Admin: 07/12/16 09:02 Dose: 0.4 mg Tramadol HCl (Ultram) 50 mg PO BID [facility] Last Admin: 07/12/16 16:30 Dose: 50 mg Zolpidem Tartrate (Ambien) 5 mg PO HS PRN PRN Reason: Insomnia Last Admin: 07/12/16 21:22 Dose: 5 mg - Labs Labs: 07/12/16 06:30 07/12/16 06:30 PT 11.5 SECONDS (9.6-11.2) H 07/10/16 16:47 INR 1.11 (0.92-1.08) H 07/10/16 16:47 APTT 35.0 SECONDS (23.3-32.5) H 07/10/16 16:47 Assessment and Plan (1) Cellulitis, leg Status: Acute
[2016-07-13] MEDS: Meropenem 1 GM in Sodium Chloride 0.9% 100 ML IVPB SCH ×2 (06:35→17:59)
[2016-07-13] MEDS: Enoxaparin 40 mg Syringe SC SCH (08:31)
--- NOTE | 2016-07-13 08:31 | CP.PCM.PN ---
Subjective - Date & Time of Evaluation Date of Evaluation: 07/13/16 Time of Evaluation: 08:28 - Subjective Subjective: 75 year old male was seen at bedside resting comfortably with attending, Dr. Treadwell, 2 day s/p right 4th digit partial amputation. No acute events overnight. Patient is in no acute distress, AAOx3. This morning, no strikethrough was present. Patient denies any pain today. He denies n/v/f/c/sob /cp. Objective - Vital Signs/Intake and Output Vital Signs (last 24 hours): Temp Pulse Resp BP Pulse Ox 98.4 F 65 20 113/69 95 07/12/16 22:42 07/12/16 22:42 07/12/16 22:42 07/12/16 22:42 07/12/16 22:42 - Medications Medications: Current Medications Amlodipine Besylate (Norvasc) 5 mg PO DAILY [facility] Last Admin: 07/12/16 09:03 Dose: 5 mg Enalapril Maleate (Vasotec) 20 mg PO DAILY [facility] Last Admin: 07/12/16 09:04 Dose: 20 mg Enoxaparin Sodium (Lovenox) 40 mg SC DAILY [facility] PRN Reason: Protocol Last Admin: 07/12/16 09:02 Dose: 40 mg Meropenem 1 gm/ Sodium (Chloride) 100 mls @ 100 mls/hr IVPB Q12H [facility] Last Admin: 07/13/16 06:35 Dose: 100 mls/hr Vancomycin HCl 750 mg/ Sodium (Chloride) 250 mls @ 166.667 mls/hr IVPB Q12@0400 ,1600 [facility] Last Admin: 07/13/16 04:17 Dose: 166.667 mls/hr Ketorolac Tromethamine (Toradol) 15 mg IM Q6 PRN PRN Reason: Pain, moderate (4-7) Last Admin: 07/11/16 20:36 Dose: 15 mg Ondansetron HCl (Zofran Odt) 8 mg PO Q8 PRN PRN Reason: nausea Pantoprazole Sodium (Protonix Inj) 40 mg IVP DAILY [facility] Last Admin: 07/12/16 09:04 Dose: 40 mg Prednisone (Prednisone Tab) 10 mg PO DAILY [facility] Last Admin: 07/12/16 09:04 Dose: 10 mg Tamsulosin HCl (Flomax) 0.4 mg PO DAILY [facility] Last Admin: 07/12/16 09:02 Dose: 0.4 mg Tramadol HCl (Ultram) 50 mg PO BID [facility] Last Admin: 07/12/16 16:30 Dose: 50 mg Zolpidem Tartrate (Ambien) 5 mg PO HS PRN PRN Reason: Insomnia Last Admin: 07/12/16 21:22 Dose: 5 mg - Labs Labs: 07/12/16 06:30 07/12/16 06:30 PT 11.5 SECONDS (9.6-11.2) H 07/10/16 16:47 INR 1.11 (0.92-1.08) H 07/10/16 16:47 APTT 35.0 SECONDS (23.3-32.5) H 07/10/16 16:47 - Constitutional Appears: Well, Non-toxic, No Acute Distress - Extremities Exam Additional comments: Right lower extremity focused. VASC: DP pulse weakly palpable secondary to pitting edema, PT pulses is palpable graded 2/4. Non-pitting edema noted to dorsal aspect of right foot extending to rear-foot. Capillary refill time to 5th digits was immediate, <3 seconds to remaining digits. DERM: 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 site noted with sutures intact, scant amount of sanginous drainage noted. No malodor noted. Blanchable erythema from this site extends proximally along dorsal and lateral aspects of foot to the level of the midfoot. No crepitus noted. No malodor or purulence noted a this time. NEURO: Protective sensation grossly absent at level of digits. ORTHO: Partial amputation noted to right 4th digit. - Neurological Exam Neurological Exam: Alert, Awake, Oriented x3 - Psychiatric Exam Psychiatric exam: Normal Affect, Normal Mood Assessment and Plan - Assessment and Plan (Free Text) Assessment: 75 year old male with 2 day s/p 4th digit partial amputation Plan: Patient examined and evaluated with attending, Dr. Treadwell Chart, labs, and vitals reviewed. Most proximal suture was removed Amputation site was irrigated with copious amounts of normal sterile saline Amputation site packed with 1/4 inch packing, dressed with sterile gauze, ABD, kerlix. Patient to remain non-WB to his right foot Continue IV abx-Vancomycin and Meropenem per ID Continue pain medication ESR to be ordered for Erasmo Follow up cultures from OR Physical therapy- non-WB to RLE with surgical shoe Podiatry will continue to follow patient while in house
--- NOTE | 2016-07-13 22:53 | CP.PCM.PN ---
Subjective - Date & Time of Evaluation Date of Evaluation: 07/13/16 Time of Evaluation: 18:35 Objective - Vital Signs/Intake and Output Vital Signs (last 24 hours): Temp Pulse Resp BP Pulse Ox 98.3 F 62 20 126/75 96 07/13/16 17:00 07/13/16 17:00 07/13/16 17:00 07/13/16 17:00 07/13/16 17:00 - Medications Medications: Current Medications Amlodipine Besylate (Norvasc) 5 mg PO DAILY [facility] Last Admin: 07/13/16 08:31 Dose: 5 mg Enalapril Maleate (Vasotec) 20 mg PO DAILY [facility] Last Admin: 07/13/16 08:34 Dose: 20 mg Enoxaparin Sodium (Lovenox) 40 mg SC DAILY [facility] PRN Reason: Protocol Last Admin: 07/13/16 08:31 Dose: 40 mg Meropenem 1 gm/ Sodium (Chloride) 100 mls @ 100 mls/hr IVPB Q12H [facility] Last Admin: 07/13/16 17:59 Dose: 100 mls/hr Vancomycin HCl 750 mg/ Sodium (Chloride) 250 mls @ 166.667 mls/hr IVPB Q12@0400 ,1600 [facility] Last Admin: 07/13/16 16:15 Dose: 166.667 mls/hr Ketorolac Tromethamine (Toradol) 15 mg IM Q6 PRN PRN Reason: Pain, moderate (4-7) Last Admin: 07/11/16 20:36 Dose: 15 mg Ondansetron HCl (Zofran Odt) 8 mg PO Q8 PRN PRN Reason: nausea Pantoprazole Sodium (Protonix Inj) 40 mg IVP DAILY [facility] Last Admin: 07/13/16 08:33 Dose: 40 mg Prednisone (Prednisone Tab) 10 mg PO DAILY [facility] Last Admin: 07/13/16 08:33 Dose: 10 mg Tamsulosin HCl (Flomax) 0.4 mg PO DAILY [facility] Last Admin: 07/13/16 08:31 Dose: 0.4 mg Tramadol HCl (Ultram) 50 mg PO BID [facility] Last Admin: 07/13/16 16:14 Dose: 50 mg - Labs Labs: 07/12/16 06:30 07/12/16 06:30 PT 11.5 SECONDS (9.6-11.2) H 03/23/17 16:47 INR 1.11 (0.92-1.08) H 07/10/16 16:47 APTT 35.0 SECONDS (23.3-32.5) H 07/10/16 16:47 Assessment and Plan (1) Cellulitis, leg Status: Acute
[2016-07-14] MEDS: Meropenem 1 GM in Sodium Chloride 0.9% 100 ML IVPB SCH (06:34)
[2016-07-14 07:08] LABS: HEMATOCRIT 39.3 % (35.0-51.0); MEAN CELL VOLUME 87.3 fl (80.0-94.0); MEAN CORPUSCULAR HEMOGLOBIN 29.6 pg (27.0-31.0); MEAN CORPUSCULAR HGB CONC 33.9 g/dL (33.0-37.0); RED CELL DISTRIBUTION WIDTH 13.7 % (11.5-14.5); WHITE BLOOD COUNT 6.5 K/uL (4.8-10.8)
[2016-07-14 08:21] VITALS: BP 131/70; PULSE 55; TEMP 98.5; O2SAT 97
[2016-07-14] MEDS: Enoxaparin 40 mg Syringe SC SCH (08:33)
[2016-07-14] MEDS ORDERED: Pantoprazole 40 mg EC Tab PO SCH (10:30)
[2016-07-14] MEDS ORDERED: Meropenem 1 GM in Sodium Chloride 0.9% 100 ML IVPB SCH (12:31)
--- NOTE | 2016-07-14 12:53 | CP.PCM.PCO ---
Physician Communication Note - Physician Communication Note Physician Communication Note: Per NADIA Saxena and michael vidal for at least 4 weeks.
--- NOTE | 2016-07-14 13:58 | PQF GENQUE ---
This form is a permanent part of the medical record 07/14/16 Dr. Bai, After workup would you please further clarify the Osteomyelitis as Acute, Chronic, Other, Unable to determine,... Documentation of Right foot 4th digit osteomyelitis. Right foot x-ray concerning for osteomyelitis .S/P partial amputation with pulse lavage. Treated with IVAB. Path report pending. Clarification of your documentation is requested to better reflect the severity of illness and intensity of treatment of your patient. PHYSICIAN'S RESPONSE Based on your medical judgment of the clinical indicators outlined above please clarify the following: [] Practitioner response [] If unable to determine, please check the box, sign and date. Present On Admission (POA) Indicator: [] Present at the time of admission [] Not present at the time of admission [] Clinically Undetermined In responding to this query, please exercise your independent professional judgment. The fact that a question is asked does not imply that any particular answer is desired or expected. Thank you for your clarification on this documentation. If you have any questions please call:[phone] * Thank you, Ashley Reilly RN CDMP [facility]
--- NOTE | 2016-07-14 15:25 | CP.PCM.PN ---
Subjective - Date & Time of Evaluation Date of Evaluation: 07/14/16 Time of Evaluation: 08:00 - Subjective Subjective: 75 year old male patient with PMHx of lung cancer & HTN presenting 3 days s/p Right 4th digit Amputation was see at bedside this morning. Patient was resting comfortably in bed with no report of acute overnight distress. AAO x3. Patient' s right foot dressing was dirty and unwrapped. patient states that he walks around at night. Patient was advised to refrain from walking around at night except when going to restroom, and to stay Non-weight bearing to Right foot. Patient was educated on risk factors of infection to surgical sites. Patient understands the risks. He denies of any pain to the surgical site. Patient denies of any N/V/F/C or SOB today Objective - Vital Signs/Intake and Output Vital Signs (last 24 hours): Temp Pulse Resp BP Pulse Ox 98.5 F 55 L 20 131/70 97 07/14/16 08:19 07/14/16 08:19 07/14/16 08:19 07/14/16 08:34 07/14/16 08:19 - Medications Medications: Current Medications Amlodipine Besylate (Norvasc) 5 mg PO DAILY [facility] Last Admin: 07/14/16 08:34 Dose: 5 mg Enalapril Maleate (Vasotec) 20 mg PO DAILY [facility] Last Admin: 07/14/16 08:34 Dose: 20 mg Meropenem 1 gm/ Sodium (Chloride) 100 mls @ 100 mls/hr IVPB Q12H [facility] Last Admin: 07/14/16 06:34 Dose: 100 mls/hr Vancomycin HCl 750 mg/ Sodium (Chloride) 250 mls @ 166.667 mls/hr IVPB Q12@0400 ,1600 [facility] Last Admin: 07/14/16 04:04 Dose: 166.667 mls/hr Ketorolac Tromethamine (Toradol) 15 mg IM Q6 PRN PRN Reason: Pain, moderate (4-7) Last Admin: 07/11/16 20:36 Dose: 15 mg Ondansetron HCl (Zofran Odt) 8 mg PO Q8 PRN PRN Reason: nausea Pantoprazole Sodium (Protonix Ec Tab) 40 mg PO DAILY [facility] Last Admin: 07/14/16 12:05 Dose: Not Given Prednisone (Prednisone Tab) 10 mg PO DAILY [facility] Last Admin: 07/14/16 08:33 Dose: 10 mg Tamsulosin HCl (Flomax) 0.4 mg PO DAILY [facility] Last Admin: 07/14/16 08:34 Dose: 0.4 mg - Labs Labs: 07/14/16 05:40 07/12/16 06:30 PT 11.5 SECONDS (9.6-11.2) H 07/10/16 16:47 INR 1.11 (0.92-1.08) H 07/10/16 16:47 APTT 35.0 SECONDS (23.3-32.5) H 07/10/16 16:47 - Constitutional Appears: Well, Non-toxic, No Acute Distress - Extremities Exam Additional comments: Right lower extremity focused. DERM: 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 site noted with sutures intact, dried blood noted. No malodor noted. No erythema is noted. No crepitus / fluctuance is noted. No purulent drainage is noted. No maceration to the incision site noted. VASC: DP pulse weakly palpable secondary to pitting edema, PT pulses is palpable graded 2/4. Non-pitting edema noted to dorsal aspect of right foot extending to rear-foot. Capillary refill time to 5th digits was immediate, <3 seconds to remaining digits. NEURO: Protective sensation grossly absent at level of digits. ORTHO: Partial amputation noted to right 4th digit. - Neurological Exam Neurological Exam: Awake, Oriented x3 - Psychiatric Exam Psychiatric exam: Normal Affect, Normal Mood - Skin Skin Exam: Normal Color, Warm Assessment and Plan - Assessment and Plan (Free Text) Assessment: 75 year old male patient 3 day s/p 4th digit partial amputation Plan: Patient examined and evaluated discussed with attending Dr. Treadwell Chart, labs, and vitals reviewed. Sutures left intact Amputation site was irrigated with copious amounts of normal sterile saline Amputation site packed with 1/4 inch packing, dressed with sterile gauze, ABD, kerlix. Continue IV abx-Vancomycin and Meropenem per ID Continue pain medication ESR 79 today Follow up cultures from OR Patient to remain non-WB to his right foot Podiatry will continue to follow patient while in house
--- NOTE | 2016-07-14 16:50 | CP.PCM.DIS ---
Provider - Provider Date of Admission: 07/10/16 17:11 Attending physician: Jeannie Szymanski MD Time Spent in preparation of Discharge (in minutes): 30 Diagnosis - Discharge Diagnosis (1) Cellulitis, leg Status: Acute Hospital Course - Lab Results Lab Results: Most Recent Lab Values WBC 6.5 K/uL (4.8-10.8) 07/14/16 05:40 RBC 4.50 Mil/uL (4.40-5.90) 07/14/16 05:40 Hgb 13.3 g/dL (12.0-18.0) 07/14/16 05:40 Hct 39.3 % (35.0-51.0) 07/14/16 05:40 MCV 87.3 fl (80.0-94.0) 07/14/16 05:40 MCH 29.6 pg (27.0-31.0) 07/14/16 05:40 MCHC 33.9 g/dL (33.0-37.0) 07/14/16 05:40 RDW 13.7 % (11.5-14.5) 07/14/16 05:40 Plt Count 257 K/uL (130-400) 07/14/16 05:40 MPV 7.9 fl (7.2-11.7) 07/11/16 04:00 Neut % (Auto) 69.9 % (50.0-75.0) 07/11/16 04:00 Lymph % (Auto) 16.2 % (20.0-40.0) L 07/11/16 04:00 [place] % (Auto) 11.1 % (0.0-10.0) H 07/11/16 04:00 Eos % (Auto) 2.3 % (0.0-4.0) 07/11/16 04:00 Baso % (Auto) 0.5 % (0.0-2.0) 07/11/16 04:00 Neut # 6.9 K/uL (1.8-7.0) 07/11/16 04:00 Lymph # 1.6 K/uL (1.0-4.3) 07/11/16 04:00 [place] # 1.1 K/uL (0.0-0.8) H 07/11/16 04:00 Eos # 0.2 K/uL (0.0-0.7) 07/11/16 04:00 Baso # 0.0 K/uL (0.0-0.2) 07/11/16 04:00 ESR 79 mm/hr (0-20) H 07/14/16 05:40 PT 11.5 SECONDS (9.6-11.2) H 07/10/16 16:47 INR 1.11 (0.92-1.08) H 07/10/16 16:47 APTT 35.0 SECONDS (23.3-32.5) H 07/10/16 16:47 pO2 25 mm/Hg (30-55) L 07/10/16 16:50 VBG pH 7.43 (7.32-7.43) 07/10/16 16:50 VBG pCO2 48 mmHg (40-60) 07/10/16 16:50 VBG HCO3 28.6 mmol/L 07/10/16 16:50 VBG Total CO2 33.4 mmol/L (22-28) H 07/10/16 16:50 VBG O2 Sat (Calc) 50.4 % (40-65) 07/10/16 16:50 VBG Base Excess 6.4 mmol/L (0.0-2.0) H 07/10/16 16:50 VBG Potassium 4.4 mmol/L (3.6-5.2) 07/10/16 16:50 Sodium 131.0 mmol/L (132-148) L 07/10/16 16:50 Chloride 100.0 mmol/L (98-107) 07/10/16 16:50 Glucose 96 mg/dL (75-110) 07/10/16 16:50 Lactate 1.3 mmol/L (0.7-2.1) 07/10/16 16:50 FiO2 21.0 % 07/10/16 16:50 Sodium 138 mmol/l (132-148) 07/12/16 06:30 Potassium 4.0 MMOL/L (3.6-5.0) 07/12/16 06:30 Chloride 101 mmol/L (98-107) 07/12/16 06:30 Carbon Dioxide 25 mmol/L (22-30) 07/12/16 06:30 Anion Gap 17 (10-20) 07/12/16 06:30 BUN 22 mg/dl (9-20) H 07/12/16 06:30 Creatinine 1.1 mg/dL (0.8-1.5) 07/12/16 06:30 Est GFR ( Amer) > 60 07/12/16 06:30 Est GFR (Non-Af Amer) > 60 07/12/16 06:30 Random Glucose 100 mg/dL (75-110) 07/12/16 06:30 Calcium 9.0 mg/dL (8.4-10.2) 07/12/16 06:30 Phosphorus 3.4 mg/dl (2.5-4.5) 07/10/16 16:57 Magnesium 1.8 MG/DL (1.6-2.3) 07/10/16 16:57 Total Bilirubin 1.1 mg/dl (0.2-1.3) 07/10/16 16:57 AST 31 U/L (17-59) 07/10/16 16:57 ALT 29 U/L (21-72) 07/10/16 16:57 Alkaline Phosphatase 81 U/L (38-126) 07/10/16 16:57 C-React Prot High Sens > 15.00 mg/L (1.00-3.00) H 07/10/16 16:47 Total Protein 7.3 G/DL (6.3-8.2) 07/10/16 16:57 Albumin 4.0 g/dL (3.5-5.0) 07/10/16 16:57 Globulin 3.3 gm/dL (2.2-3.9) 07/10/16 16:57 Albumin/Globulin Ratio 1.2 (1.0-2.1) 07/10/16 16:57 Procalcitonin 0.08 NG/ML (0.19-0.49) L 07/11/16 08:18 Venous Blood Potassium 4.4 mmol/L (3.6-5.2) 07/10/16 16:50 Urine Color Pat (YELLOW) 07/10/16 00:08 Urine Clarity Clear (Clear) 07/10/16 00:08 Urine pH 5.0 (5.0-8.0) 07/10/16 00:08 Ur Specific [place] 1.026 (1.003-1.030) 07/10/16 00:08 Urine Protein 30 mg/dL (NEGATIVE) 07/10/16 00:08 Urine Glucose (UA) Neg mg/dL (Normal) 07/10/16 00:08 Urine Ketones Trace mg/dL (NEGATIVE) 07/10/16 00:08 Urine Blood Negative (NEGATIVE) 07/10/16 00:08 Urine Nitrate Negative (NEGATIVE) 07/10/16 00:08 Urine Bilirubin Negative (NEGATIVE) 07/10/16 00:08 Urine Urobilinogen 0.2-1.0 mg/dL (0.2-1.0) 07/10/16 00:08 Ur Leukocyte Esterase Neg [place]/uL (Negative) 07/10/16 00:08 Urine RBC (Auto) 2 /hpf (0-3) 07/10/16 00:08 Urine Microscopic WBC 1 /hpf (0-5) 07/10/16 00:08 Ur Squamous Epith Cells < 1 /hpf (0-5) 07/10/16 00:08 Vancomycin Peak 17.0 ug/mL (30.0-40.0) L 07/12/16 06:00 Vancomycin Trough 7.6 ug/mL (5.0-10.0) 07/14/16 15:38 Discharge Exam - Head Exam Head Exam: ATRAUMATIC, NORMOCEPHALIC Discharge Plan - Discharge Medications Prescriptions: Meropenem [Merrem IV] 1 gm IVPB Q12 #30 vial Vancomycin 750mg [Vancomycin 750 mg in NS] 750 mg IVPB DAILY #120 bag - Follow Up Plan Condition: GUARDED Disposition: REHAB FACILITY/REHAB UNIT
--- NOTE | 2016-07-15 08:40 | OP ---
PROCEDURE DATE: 07/11/2016 PRIMARY SURGEON: Wagner Treadwell DPM. PODIATRY PROFESSOR: Nancy Bai DPM, PGY-1. ANESTHESIA TYPE: Local anesthetic. PREOPERATIVE DIAGNOSES: Right fourth digit osteomyelitis, cellulitis, and abscess of digit. POSTOPERATIVE DIAGNOSES: Right fourth digit osteomyelitis, cellulitis, and abscess of digit. NAME OF PROCEDURE: Right fourth digit partial amputation. INDICATIONS: The patient is a 75-year-old male with the above diagnoses. The patient has exhausted conservative treatment at this time and now is in need of surgical intervention. The patient signed a consent after careful explanation of risks, benefits, complications, and alternatives for the surgical procedure. No guarantees were neither given nor implied. The patient continued antibiotics on in-house schedule. The patient's n.p.o. status was confirmed prior to taking the patient to the OR. PREPARATION: The patient was brought to the operating room and placed on the operating room table in the supine position. No tourniquet was used for this procedure. Attention was then directed to the right foot where a total of 9 mL of 1% lidocaine plain was administered in a local block-type fashion to the right foot. Once local anesthesia was achieved and confirmed, the foot was then prepped and draped in the usual sterile manner, and the procedure began. PROCEDURE: The attending was present during the entire surgery. Attention was then directed to the dorsal aspect of the right fourth digit where an ellipsoid-type incision was made circumferentially around the fourth digit just proximal to the PIP joint. Incision was made using a #15 blade, extending down through the soft tissue layers to the level of the periosteum. With attention was directed to all excess bleeders, they were cauterized with Bovie. Incision was then deepened down to layer of bone using #15 blade. Periosteum and soft tissue fibrous attachments to the digital bone were then relieved using a combination of #15 blade and Solitario periosteal elevator. Digit was disarticulated distal to the PIPJ. At this point, a sagittal saw was used to make a mid-shaft angulated cut of the proximal fourth phalanx, which was then resected and passed from the operative field. Distal disarticulation was sent to pathology while partial resected head was sent for microbiology evaluation and culture. At this time, amputation site was noted to be adequate, with adaquete soft tissue to facilitate closure. Tissue planes were explored using blunt dissection to open additional draining passages or abscesses, none were noted. Wound site was then flushed using pulse-lavage system with copious amounts of bacitracin-infused sterile saline after. At this time, incision site was then reapproximated using 4-0 nylon with quarter inch packing plain placed in the incision site to allow further drainage. Wound dressed with Betadine, Adaptec, 4 x 4 gauze, Kerlix, and Terri. POSTOPERATIVE CONDITION: The patient tolerated the anesthesia and procedure well and was escorted back to the recovery room with vital signs stable and neurovascular status intact to the right foot. The patient will continue to be followed by Dr. Treadwell and podiatry service while in-house. Nancy Bai DPM Wagner Treadwell DPM cc: [id number] TT: 07/15/2016 08:39:55 jn MTDD
--- NOTE | 2016-07-21 06:46 | PQF GENQUE ---
This form is a permanent part of the medical record 07/21/16 Dr. Bai, Would you please further clarify the Osteomyelitis as Acute, Chronic, Other, Unable to determine. Documentation of Right foot 4th digit osteomyelitis. Right foot x-ray concerning for osteomyelitis .S/P partial amputation with pulse lavage. Treated with IVAB. Pathology report is available. Clarification of your documentation is requested to better reflect the severity of illness and intensity of treatment of your patient. PHYSICIAN'S RESPONSE Based on your medical judgment of the clinical indicators outlined above please clarify the following: [] Practitioner response [] If unable to determine, please check the box, sign and date. Present On Admission (POA) Indicator: [] Present at the time of admission [] Not present at the time of admission [] Clinically Undetermined In responding to this query, please exercise your independent professional judgment. The fact that a question is asked does not imply that any particular answer is desired or expected. Thank you for your clarification on this documentation. If you have any questions please call:[phone] * Thank you, Ashley Reilly RN [facility]
== END 2016-07-14 16:32 | DRG 501 ==
LOC: H.ER 14:55 → H.ERHOLD 17:11 → H.MEDSURG1 19:10
PROVIDERS: ADMIT Internal Medicine; ATTEND Internal Medicine
PROC: 0JDQ0ZZ Extraction of Right Foot Subcutaneous Tissue and Fascia, Open Approach (ICD-10-PCS; 2016-07-11)
PROC: 0Y6V0Z1 Detachment at Right 4th Toe, High, Open Approach (ICD-10-PCS; principal; 2016-07-11 15:15)
PROC: 0J9Q0ZZ Drainage of Right Foot Subcutaneous Tissue and Fascia, Open Approach (ICD-10-PCS; 2016-07-11 15:15)
DX: M86.171 Other acute osteomyelitis, right ankle and foot (principal); L03.115 Cellulitis of right lower limb; C34.90 Malignant neoplasm of unspecified part of unspecified bronchus or lung; G62.9 Polyneuropathy, unspecified; L97.519 Non-pressure chronic ulcer of other part of right foot with unspecified severity; I10 Essential (primary) hypertension; Z96.652 Presence of left artificial knee joint; G89.3 Neoplasm related pain (acute) (chronic)

== ENCOUNTER 2016-07-14 13:07 | Inpatient (IN) | payer OTHER ==
[2016-07-14 16:53] VITALS: BMI 32.5
[2016-07-14 18:53] VITALS: RESP 20
[2016-07-14] MEDS ORDERED: Patient's Own Med (Meropenem [Merrem Iv] 1 GM) IVPB SCH (21:00)
[2016-07-14] MEDS ORDERED: Meropenem 1 GM in Sodium Chloride 0.9% 100 ML IVPB SCH (21:00)
[2016-07-15] MEDS: Meropenem 1 GM in Sodium Chloride 0.9% 100 ML IVPB SCH ×2 (04:30→18:06)
--- NOTE | 2016-07-15 08:20 | CP.PCM.CON ---
History of Present Illness - History of Present Illness History of Present Illness: 75 year old male patient with PMHx of lung cancer & HTN presenting 4 days s/p Right 4th digit Amputation was see at bedside this morning with attending Dr. Treadwell. Patient was resting comfortably in bed with no report of acute overnight distress. AAO x3. Patient's right foot dressing was clean dry and intact today. He denies of any pain to the surgical site even when changing the dressing to the foot. Patient denies of any N/V/F/C or SOB today Past Patient History - Past Medical History & Family History Past Medical History?: Yes - Past Social History Smoking Status: Never Smoked - CARDIAC Hx Hypertension: Yes - PULMONARY Hx Respiratory Disorders: Yes Hx Lung Cancer: Yes - NEUROLOGICAL Hx Neurological Disorder: No - HEENT Hx HEENT Problems: No - RENAL Hx Chronic Kidney Disease: No - ENDOCRINE/METABOLIC Hx Endocrine Disorders: No - HEMATOLOGICAL/ONCOLOGICAL Hx Blood Disorders: No Hx AIDS: No Hx Human Immunodeficiency Virus (HIV): No - INTEGUMENTARY Hx Dermatological Problems: No - MUSCULOSKELETAL/RHEUMATOLOGICAL Hx Falls: No - GASTROINTESTINAL Hx Gastrointestinal Disorders: No - GENITOURINARY/GYNECOLOGICAL Hx Genitourinary Disorders: No - PSYCHIATRIC Hx Psychophysiologic Disorder: No Hx Substance Use: No - SURGICAL HISTORY Hx Surgeries: Yes Other/Comment: lung biopsy. laser knee surgery left. ear surgery - ANESTHESIA Hx Anesthesia: Yes Hx Anesthesia Reactions: No Hx Malignant Hyperthermia: No Meds Allergies/Adverse Reactions: Allergies Allergy/AdvReac Type Severity Reaction Status Date / Time No Known Allergies Allergy Verified 07/14/16 16:52 - Medications Medications: Current Medications Amlodipine Besylate (Norvasc) 5 mg PO DAILY [facility] Enalapril Maleate (Vasotec) 20 mg PO DAILY [facility] Enoxaparin Sodium (Lovenox) 40 mg SC DAILY [facility] PRN Reason: Protocol Vancomycin HCl 750 mg/ Sodium (Chloride) 250 mls @ 166.667 mls/hr IVPB Q12@0500 ,1700 [facility] Last Admin: 07/15/16 04:30 Dose: 166.667 mls/hr Meropenem 1 gm/ Sodium (Chloride) 100 mls @ 100 mls/hr IVPB Q12@0500,1700 [facility] Last Admin: 07/15/16 04:30 Dose: 100 mls/hr Ketorolac Tromethamine (Toradol) 15 mg IM Q6 PRN PRN Reason: Pain, moderate (4-7) Ondansetron HCl (Zofran Odt) 8 mg PO Q8 PRN PRN Reason: nausea Pantoprazole Sodium (Protonix Ec Tab) 40 mg PO DAILY [facility] Prednisone (Prednisone Tab) 10 mg PO DAILY [facility] Tamsulosin HCl (Flomax) 0.4 mg PO DAILY [facility] Tramadol HCl (Ultram) 50 mg PO BID [facility] Zolpidem Tartrate (Ambien) 5 mg PO HS PRN PRN Reason: Insomnia Last Admin: 07/14/16 21:16 Dose: 5 mg Physical Exam - Constitutional Appears: Well, Non-toxic, No Acute Distress - Extremities Exam Additional comments: Right lower extremity focused. DERM: 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 site noted with sutures intact, dried blood noted. No malodor noted. No erythema is noted. No crepitus / fluctuance is noted. No purulent drainage is noted. No maceration to the incision site noted. VASC: DP pulse weakly palpable secondary to pitting edema, PT pulses is palpable graded 2/4. Non-pitting edema noted to dorsal aspect of right foot extending to rear-foot. Capillary refill time to 5th digits was immediate, <3 seconds to remaining digits. NEURO: Protective sensation grossly absent at level of digits. ORTHO: Partial amputation noted to right 4th digit. - Neurological Exam Neurological exam: Alert, Oriented x3 - Psychiatric Exam Psychiatric exam: Normal Affect, Normal Mood - Skin Skin Exam: Normal Color, Warm Results - Vital Signs Recent Vital Signs: Last Vital Signs Temp 98.2 F 07/14/16 20:41 Pulse 74 07/14/16 20:41 Resp 20 07/14/16 20:41 BP 128/79 07/14/16 20:41 Pulse Ox 99 07/14/16 20:41 Assessment & Plan - Assessment and Plan (Free Text) Assessment: 75 year old male patient 3 day s/p 4th digit partial amputation Plan: Patient examined and evaluated at bedside with attending Dr. Treadwell Chart, labs, and vitals reviewed. No updated labs this morning Sutures left intact Amputation site was irrigated with copious amounts of normal sterile saline Amputation site packed with 1/4 inch packing, dressed with sterile gauze, ABD, kerlix. Continue IV abx-Vancomycin and Meropenem per ID Continue pain medication Follow up cultures from OR Patient to remain non-WB to his right foot Podiatry will continue to follow patient while in house
[2016-07-15] MEDS: Enoxaparin 40 mg Syringe SC SCH (08:43)
[2016-07-15] MEDS: Pantoprazole 40 mg EC Tab PO SCH (08:44)
--- NOTE | 2016-07-15 12:19 | CP.PCM.HP ---
History of Present Illness - History of Present Illness History of Present Illness: 75 year old male patient with PMHx of lung cancer & HTN presenting 4 days s/p Right 4th digit Amputation was see at bedside this morning with attending Dr. Treadwell. Patient was resting comfortably in bed with no report of acute overnight distress. AAO x3 Past Patient History - Past Medical History & Family History Past Medical History?: Yes - Past Social History Smoking Status: Never Smoked - CARDIAC Hx Hypertension: Yes - PULMONARY Hx Respiratory Disorders: Yes Hx Lung Cancer: Yes - NEUROLOGICAL Hx Neurological Disorder: No - HEENT Hx HEENT Problems: No - RENAL Hx Chronic Kidney Disease: No - ENDOCRINE/METABOLIC Hx Endocrine Disorders: No - HEMATOLOGICAL/ONCOLOGICAL Hx Blood Disorders: No Hx AIDS: No Hx Human Immunodeficiency Virus (HIV): No - INTEGUMENTARY Hx Dermatological Problems: No - MUSCULOSKELETAL/RHEUMATOLOGICAL Hx Falls: No - GASTROINTESTINAL Hx Gastrointestinal Disorders: No - GENITOURINARY/GYNECOLOGICAL Hx Genitourinary Disorders: No - PSYCHIATRIC Hx Psychophysiologic Disorder: No Hx Substance Use: No - SURGICAL HISTORY Hx Surgeries: Yes Other/Comment: lung biopsy. laser knee surgery left. ear surgery - ANESTHESIA Hx Anesthesia: Yes Hx Anesthesia Reactions: No Hx Malignant Hyperthermia: No Meds Allergies/Adverse Reactions: Allergies Allergy/AdvReac Type Severity Reaction Status Date / Time No Known Allergies Allergy Verified 07/14/16 16:52 Results - Vital Signs Recent Vital Signs: Last Vital Signs Temp 98.1 F 07/15/16 08:19 Pulse 72 07/15/16 08:43 Resp 20 07/15/16 08:19 BP 132/70 07/15/16 08:43 Pulse Ox 99 07/15/16 08:19
[2016-07-16] MEDS: Meropenem 1 GM in Sodium Chloride 0.9% 100 ML IVPB SCH ×2 (04:43→16:12)
--- NOTE | 2016-07-16 08:48 | CP.PCM.PN ---
Subjective - Date & Time of Evaluation Date of Evaluation: 07/16/16 Time of Evaluation: 07:30 - Subjective Subjective: 75 year old male patient with PMHx of lung cancer & HTN presenting 5 days s/p Right 4th digit Amputation was see at bedside this morning. Patient was resting comfortably in bed and denies any acute overnight distress. AAO x3. The right foot dressing was clean dry and intact today. He denies of any pain to the surgical site even when changing the dressing to the foot. Patient denies of any N/V/F/C or SOB today Objective - Vital Signs/Intake and Output Vital Signs (last 24 hours): Temp Pulse Resp BP Pulse Ox 97.8 F 60 20 131/60 99 07/16/16 08:11 07/16/16 08:11 07/16/16 08:11 07/16/16 08:11 07/16/16 08:11 - Medications Medications: Current Medications Amlodipine Besylate (Norvasc) 5 mg PO DAILY [facility] Last Admin: 07/15/16 08:43 Dose: 5 mg Enalapril Maleate (Vasotec) 20 mg PO DAILY [facility] Last Admin: 07/15/16 08:44 Dose: 20 mg Enoxaparin Sodium (Lovenox) 40 mg SC DAILY [facility] PRN Reason: Protocol Last Admin: 07/15/16 08:43 Dose: 40 mg Vancomycin HCl 750 mg/ Sodium (Chloride) 250 mls @ 166.667 mls/hr IVPB Q12@0500 ,1700 [facility] Last Admin: 07/16/16 05:49 Dose: 166.667 mls/hr Meropenem 1 gm/ Sodium (Chloride) 100 mls @ 100 mls/hr IVPB Q12@0500,1700 [facility] Last Admin: 07/16/16 04:43 Dose: 100 mls/hr Ketorolac Tromethamine (Toradol) 15 mg IM Q6 PRN PRN Reason: Pain, moderate (4-7) Ondansetron HCl (Zofran Odt) 8 mg PO Q8 PRN PRN Reason: nausea Pantoprazole Sodium (Protonix Ec Tab) 40 mg PO DAILY [facility] Last Admin: 07/15/16 08:44 Dose: 40 mg Prednisone (Prednisone Tab) 10 mg PO DAILY [facility] Last Admin: 07/15/16 08:44 Dose: 10 mg Tamsulosin HCl (Flomax) 0.4 mg PO DAILY [facility] Last Admin: 07/15/16 08:43 Dose: 0.4 mg Tramadol HCl (Ultram) 50 mg PO BID [facility] Last Admin: 07/15/16 17:24 Dose: 50 mg Zolpidem Tartrate (Ambien) 5 mg PO HS PRN PRN Reason: Insomnia Last Admin: 07/15/16 21:35 Dose: 5 mg - Constitutional Appears: Well, Non-toxic, No Acute Distress - Extremities Exam Additional comments: Right lower extremity focused. DERM: 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 site noted with sutures intact, dried blood noted. No malodor noted. No erythema is noted. No crepitus / fluctuance is noted. No purulent drainage is noted. No maceration to the incision site noted. VASC: DP pulse weakly palpable secondary to pitting edema, PT pulses is palpable graded 2/4. Non-pitting edema noted to dorsal aspect of right foot extending to rear-foot. Capillary refill time to 5th digits was immediate, <3 seconds to remaining digits. NEURO: Protective sensation grossly absent at level of digits. ORTHO: Partial amputation noted to right 4th digit. - Neurological Exam Neurological Exam: Alert, Awake, Oriented x3 - Psychiatric Exam Psychiatric exam: Normal Affect, Normal Mood - Skin Skin Exam: Normal Color, Warm Assessment and Plan - Assessment and Plan (Free Text) Assessment: 75 year old male patient 5 days s/p 4th digit partial amputation Plan: Patient examined and evaluated at bedside this AM Chart, labs, and vitals reviewed. No updated labs this morning Remaining Sutures left intact Amputation site was irrigated with copious amounts of normal sterile saline Amputation site re-packed with new 1/4 inch packing, dressed with sterile gauze , ABD, kerlix. Continue IV abx-Vancomycin and Meropenem per ID Continue pain medication Follow up cultures from OR; Preliminary Staph Aureus Patient to remain non-WB to his right foot Podiatry will continue to follow patient while in house
[2016-07-16] MEDS: Pantoprazole 40 mg EC Tab PO SCH (09:19)
[2016-07-16] MEDS: Enoxaparin 40 mg Syringe SC SCH (09:21)
--- NOTE | 2016-07-16 14:19 | CP.SDSHP ---
Same Day Surgery H & P - History Proposed Procedure: PICC placement. Pre-Op Diagnosis: Infection. - Allergies Allergies: Allergies No Known Allergies Allergy (Verified 07/14/16 16:52) - Physical Exam Vital Signs: Vital Signs 07/16/16 07/16/16 07/16/16 08:11 09:20 13:36 Temperature 97.8 F Pulse Rate 60 60 60 Respiratory 20 Rate Blood Pressure 131/60 131/60 131/60 O2 Sat by Pulse 99 98 Oximetry Short Stay Discharge - Short Stay Discharge Admitting Diagnosis/Reason for Visit: RIGHT FOOT CELLULITIS Disposition: HOME/ ROUTINE
--- NOTE | 2016-07-16 14:22 | PCM.SURG1 ---
Surgeon's Initial Post Op Note - Surgeon's Notes Surgeon: Kendra Lot Attendant: None Type of Anesthesia: Local Pre-Operative Diagnosis: Infection. Operative Findings: Patent right basilic vein. Post-Operative Diagnosis: Infection. Operation Performed: Right basilic vein 4F SL 42cm PICC placed. Specimen/Specimens Removed: None Estimated Blood Loss: EBL {In ML}: 1 Date of Surgery/Procedure: 07/16/16 Time of Surgery/Procedure: 13:30
--- NOTE | 2016-07-16 19:15 | CP.PCM.PN ---
Subjective - Date & Time of Evaluation Date of Evaluation: 07/16/16 Time of Evaluation: 19:13 - Subjective Subjective: ID NOTE AFEBRILE SHOULD HAVE TOTAL OF 4 WEEKS IV ANTIBIOTICS VANCO TROUGH ORDERED Objective - Vital Signs/Intake and Output Vital Signs (last 24 hours): Temp Pulse Resp BP Pulse Ox 97.7 F 70 20 127/67 97 07/16/16 17:47 07/16/16 17:47 07/16/16 17:47 07/16/16 17:47 07/16/16 17:47 - Medications Medications: Current Medications Amlodipine Besylate (Norvasc) 5 mg PO DAILY [facility] Last Admin: 07/16/16 09:20 Dose: 5 mg Enalapril Maleate (Vasotec) 20 mg PO DAILY [facility] Last Admin: 07/16/16 09:20 Dose: 20 mg Enoxaparin Sodium (Lovenox) 40 mg SC DAILY [facility] PRN Reason: Protocol Last Admin: 07/16/16 09:21 Dose: Not Given Vancomycin HCl 750 mg/ Sodium (Chloride) 250 mls @ 166.667 mls/hr IVPB Q12@0500 ,1700 [facility] Last Admin: 07/16/16 17:42 Dose: 166.667 mls/hr Meropenem 1 gm/ Sodium (Chloride) 100 mls @ 100 mls/hr IVPB Q12@0500,1700 [facility] Last Admin: 07/16/16 16:12 Dose: 100 mls/hr Ketorolac Tromethamine (Toradol) 15 mg IM Q6 PRN PRN Reason: Pain, moderate (4-7) Ondansetron HCl (Zofran Odt) 8 mg PO Q8 PRN PRN Reason: nausea Pantoprazole Sodium (Protonix Ec Tab) 40 mg PO DAILY [facility] Last Admin: 07/16/16 09:19 Dose: 40 mg Prednisone (Prednisone Tab) 10 mg PO DAILY [facility] Last Admin: 07/16/16 09:20 Dose: 10 mg Tamsulosin HCl (Flomax) 0.4 mg PO DAILY [facility] Last Admin: 07/16/16 09:19 Dose: 0.4 mg Tramadol HCl (Ultram) 50 mg PO BID [facility] Last Admin: 07/16/16 16:18 Dose: Not Given Zolpidem Tartrate (Ambien) 5 mg PO HS PRN PRN Reason: Insomnia Last Admin: 07/15/16 21:35 Dose: 5 mg
--- NOTE | 2016-07-16 23:49 | CP.PCM.PN ---
Subjective - Date & Time of Evaluation Date of Evaluation: 07/16/16 Time of Evaluation: 12:45 - Subjective Subjective: Seen and examined at the bed side. Having difficulty bearing weight in the left knee due to severe OA of the Left Knee. Partial Right 4th digit ambulation site is painful and relieved by pain medication. Denies fever or chills. Objective - Vital Signs/Intake and Output Vital Signs (last 24 hours): Temp Pulse Resp BP Pulse Ox 97.9 F 66 20 133/82 96 07/16/16 22:13 07/16/16 22:13 07/16/16 22:13 07/16/16 22:13 07/16/16 22:13 - Medications Medications: Current Medications Amlodipine Besylate (Norvasc) 5 mg PO DAILY [facility] Last Admin: 07/16/16 09:20 Dose: 5 mg Enalapril Maleate (Vasotec) 20 mg PO DAILY [facility] Last Admin: 07/16/16 09:20 Dose: 20 mg Enoxaparin Sodium (Lovenox) 40 mg SC DAILY [facility] PRN Reason: Protocol Last Admin: 07/16/16 09:21 Dose: Not Given Vancomycin HCl 750 mg/ Sodium (Chloride) 250 mls @ 166.667 mls/hr IVPB Q12@0500 ,1700 [facility] Last Admin: 07/16/16 17:42 Dose: 166.667 mls/hr Meropenem 1 gm/ Sodium (Chloride) 100 mls @ 100 mls/hr IVPB Q12@0500,1700 [facility] Last Admin: 07/16/16 16:12 Dose: 100 mls/hr Ketorolac Tromethamine (Toradol) 15 mg IM Q6 PRN PRN Reason: Pain, moderate (4-7) Ondansetron HCl (Zofran Odt) 8 mg PO Q8 PRN PRN Reason: nausea Pantoprazole Sodium (Protonix Ec Tab) 40 mg PO DAILY [facility] Last Admin: 07/16/16 09:19 Dose: 40 mg Prednisone (Prednisone Tab) 10 mg PO DAILY [facility] Last Admin: 07/16/16 09:20 Dose: 10 mg Tamsulosin HCl (Flomax) 0.4 mg PO DAILY [facility] Last Admin: 07/16/16 09:19 Dose: 0.4 mg Tramadol HCl (Ultram) 50 mg PO BID [facility] Last Admin: 07/16/16 16:18 Dose: Not Given Zolpidem Tartrate (Ambien) 5 mg PO HS PRN PRN Reason: Insomnia Last Admin: 07/16/16 21:38 Dose: 5 mg - Constitutional Appears: Well, No Acute Distress - Head Exam Head Exam: ATRAUMATIC, NORMAL INSPECTION, NORMOCEPHALIC - Eye Exam Eye Exam: EOMI, Normal appearance, PERRL Pupil Exam: NORMAL ACCOMODATION, PERRL - ENT Exam ENT Exam: Mucous Membranes Moist, Normal Exam - Neck Exam Neck Exam: Full ROM, Normal Inspection. absent: Lymphadenopathy - Respiratory Exam Respiratory Exam: Clear to Ausculation Bilateral, NORMAL BREATHING PATTERN - Cardiovascular Exam Cardiovascular Exam: REGULAR RHYTHM, +S1, +S2. absent: Murmur - GI/Abdominal Exam GI & Abdominal Exam: Soft, Normal Bowel Sounds. absent: Tenderness - Extremities Exam Extremities Exam: Joint Swelling, Pedal Edema Additional comments: Right foot is dressed with a clean dress with no discharge. +pedal edema. - Back Exam Back Exam: NORMAL INSPECTION. absent: CVA tenderness (L), CVA tenderness (R) - Neurological Exam Neurological Exam: Alert, Awake, CN II-XII Intact, Normal Gait, Oriented x3 - Psychiatric Exam Psychiatric exam: Normal Affect, Normal Mood - Skin Skin Exam: Dry, Intact, Normal Color, Warm Assessment and Plan (1) Cellulitis, leg Assessment & Plan: Right 4t Toe Acute Osteomyelitis S/P Amputation Continue IV Vancomycin and Merem S/P PICC Line placement Status: Acute (2) Essential hypertension Assessment & Plan: Continue Amlodipine and Enalapril Status: Chronic (3) DVT prophylaxis Status: Inactive
[2016-07-17] MEDS: Meropenem 1 GM in Sodium Chloride 0.9% 100 ML IVPB SCH ×2 (04:53→16:19)
--- NOTE | 2016-07-17 07:37 | CP.PCM.PN ---
Subjective - Date & Time of Evaluation Date of Evaluation: 07/17/16 Time of Evaluation: 07:30 - Subjective Subjective: 75 year old male patient with PMHx of lung cancer & HTN presenting 6 days s/p Right 4th digit Amputation was see at bedside this morning with attending Dr. Treadwell. Patient was resting comfortably in bed and denies any acute overnight distress. AAO x3. The right foot dressing was clean dry and intact today. Patient states that he cannot remain non-weight bearing to Right foot because he does not feel comfortable using crutches. Patient denies of any N/V/F/C or SOB today Objective - Vital Signs/Intake and Output Vital Signs (last 24 hours): Temp Pulse Resp BP Pulse Ox 97.9 F 66 20 133/82 96 07/16/16 22:13 07/16/16 22:13 07/16/16 22:13 07/16/16 22:13 07/16/16 22:13 - Medications Medications: Current Medications Amlodipine Besylate (Norvasc) 5 mg PO DAILY [facility] Last Admin: 07/16/16 09:20 Dose: 5 mg Enalapril Maleate (Vasotec) 20 mg PO DAILY [facility] Last Admin: 07/16/16 09:20 Dose: 20 mg Enoxaparin Sodium (Lovenox) 40 mg SC DAILY [facility] PRN Reason: Protocol Last Admin: 07/16/16 09:21 Dose: Not Given Vancomycin HCl 750 mg/ Sodium (Chloride) 250 mls @ 166.667 mls/hr IVPB Q12@0500 ,1700 [facility] Last Admin: 07/17/16 06:01 Dose: 166.667 mls/hr Meropenem 1 gm/ Sodium (Chloride) 100 mls @ 100 mls/hr IVPB Q12@0500,1700 [facility] Last Admin: 07/17/16 04:53 Dose: 100 mls/hr Ketorolac Tromethamine (Toradol) 15 mg IM Q6 PRN PRN Reason: Pain, moderate (4-7) Ondansetron HCl (Zofran Odt) 8 mg PO Q8 PRN PRN Reason: nausea Pantoprazole Sodium (Protonix Ec Tab) 40 mg PO DAILY [facility] Last Admin: 07/16/16 09:19 Dose: 40 mg Prednisone (Prednisone Tab) 10 mg PO DAILY [facility] Last Admin: 07/16/16 09:20 Dose: 10 mg Tamsulosin HCl (Flomax) 0.4 mg PO DAILY [facility] Last Admin: 07/16/16 09:19 Dose: 0.4 mg Tramadol HCl (Ultram) 50 mg PO BID [facility] Last Admin: 07/16/16 16:18 Dose: Not Given Zolpidem Tartrate (Ambien) 5 mg PO HS PRN PRN Reason: Insomnia Last Admin: 07/16/16 21:38 Dose: 5 mg - Constitutional Appears: Well, Non-toxic, No Acute Distress - Extremities Exam Additional comments: Right lower extremity focused. DERM: 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 site noted with sutures intact, dried blood noted. No malodor noted. No erythema is noted. No crepitus / fluctuance is noted. No purulent drainage is noted. No maceration to the incision site noted. VASC: DP pulse weakly palpable secondary to pitting edema, PT pulses is palpable graded 2/4. Non-pitting edema noted to dorsal aspect of right foot extending to rear-foot. Capillary refill time to 5th digits was immediate, <3 seconds to remaining digits. NEURO: Protective sensation grossly absent at level of digits. ORTHO: Partial amputation noted to right 4th digit. - Neurological Exam Neurological Exam: Alert, Awake, Oriented x3 - Psychiatric Exam Psychiatric exam: Normal Affect, Normal Mood - Skin Skin Exam: Normal Color, Warm Assessment and Plan - Assessment and Plan (Free Text) Assessment: 75 year old male patient 6 days s/p 4th digit partial amputation Plan: Patient examined and evaluated at bedside this AM Chart, labs, and vitals reviewed. No updated labs this morning Remaining Sutures left intact Amputation site was irrigated with copious amounts of normal sterile saline Amputation site re-packed with new 1/4 inch packing, dressed with sterile gauze , ABD, kerlix. Continue IV abx per ID Continue pain medication Cultures from OR; Final Staph Aureus Bone Cx : Viable Tissue with no acute OM to a fragment (Another frag: viable with OM) Partial weight bearing to right foot Podiatry will continue to follow patient while in house
[2016-07-17 07:45] LABS: BLOOD UREA NITROGEN 19 mg/dl (9-20); CALCIUM 9.5 mg/dL (8.4-10.2); CARBON DIOXIDE 28 mmol/L (22-30); CHLORIDE 103 mmol/L (98-107); GFR AFRICAN-AMERICAN > 60; GLUCOSE,RANDOM 96 mg/dL (75-110); POTASSIUM 4.7 MMOL/L (3.6-5.0); SODIUM 143 mmol/l (132-148)
[2016-07-17 07:57] LABS: BASO % 0.5 % (0.0-2.0); EOS # 0.3 K/uL (0.0-0.7); HEMATOCRIT 41.3 % (35.0-51.0); LYMPH # 1.4 K/uL (1.0-4.3); LYMPH % 18.8 % (20.0-40.0); MEAN CELL VOLUME 87.5 fl (80.0-94.0); MEAN CORPUSCULAR HEMOGLOBIN 29.1 pg (27.0-31.0); MEAN CORPUSCULAR HGB CONC 33.3 g/dL (33.0-37.0); MEAN PLATELET VOLUME 7.5 fl (7.2-11.7); MONO # 0.7 K/uL (0.0-0.8); MONO % 9.7 % (0.0-10.0); NRBC % 0.1 % (0.0-0.0); RED CELL DISTRIBUTION WIDTH 13.7 % (11.5-14.5); WHITE BLOOD COUNT 7.5 K/uL (4.8-10.8)
[2016-07-17] MEDS: Enoxaparin 40 mg Syringe SC SCH (08:59)
[2016-07-17] MEDS: Pantoprazole 40 mg EC Tab PO SCH (09:00)
--- NOTE | 2016-07-17 23:18 | CP.PCM.PN ---
Subjective - Date & Time of Evaluation Date of Evaluation: 07/17/16 Time of Evaluation: 16:00 Objective - Vital Signs/Intake and Output Vital Signs (last 24 hours): Temp Pulse Resp BP Pulse Ox 97.7 F 83 20 143/82 99 07/17/16 20:36 07/17/16 20:36 07/17/16 20:36 07/17/16 20:36 07/17/16 20:36 - Medications Medications: Current Medications Amlodipine Besylate (Norvasc) 5 mg PO DAILY [facility] Last Admin: 07/17/16 08:59 Dose: 5 mg Enalapril Maleate (Vasotec) 20 mg PO DAILY [facility] Last Admin: 07/17/16 09:04 Dose: 20 mg Enoxaparin Sodium (Lovenox) 40 mg SC DAILY [facility] PRN Reason: Protocol Last Admin: 07/17/16 08:59 Dose: 40 mg Meropenem 1 gm/ Sodium (Chloride) 100 mls @ 100 mls/hr IVPB Q12@0500,1700 [facility] Last Admin: 07/17/16 16:19 Dose: 100 mls/hr Vancomycin HCl 500 mg/ Sodium (Chloride) 100 mls @ 100 mls/hr IVPB Q12@0500, 1700 [facility] Last Admin: 07/17/16 17:29 Dose: 100 mls/hr Ketorolac Tromethamine (Toradol) 15 mg IM Q6 PRN PRN Reason: Pain, moderate (4-7) Ondansetron HCl (Zofran Odt) 8 mg PO Q8 PRN PRN Reason: nausea Pantoprazole Sodium (Protonix Ec Tab) 40 mg PO DAILY [facility] Last Admin: 07/17/16 09:00 Dose: 40 mg Prednisone (Prednisone Tab) 10 mg PO DAILY [facility] Last Admin: 07/17/16 09:00 Dose: 10 mg Tamsulosin HCl (Flomax) 0.4 mg PO DAILY [facility] Last Admin: 07/17/16 08:58 Dose: 0.4 mg Tramadol HCl (Ultram) 50 mg PO BID [facility] Last Admin: 07/17/16 16:28 Dose: 50 mg Zolpidem Tartrate (Ambien) 5 mg PO HS PRN PRN Reason: Insomnia Last Admin: 07/17/16 21:06 Dose: 5 mg - Labs Labs: 07/17/16 07:16 07/17/16 07:16 Assessment and Plan (1) Cellulitis, leg Status: Acute (2) Essential hypertension Status: Chronic (3) DVT prophylaxis Status: Inactive
[2016-07-18] MEDS: Meropenem 1 GM in Sodium Chloride 0.9% 100 ML IVPB SCH ×2 (06:01→17:27)
[2016-07-18] MEDS: Enoxaparin 40 mg Syringe SC SCH (08:47)
[2016-07-18] MEDS: Pantoprazole 40 mg EC Tab PO SCH (08:48)
--- NOTE | 2016-07-18 16:50 | CP.PCM.PN ---
Subjective - Date & Time of Evaluation Date of Evaluation: 07/18/16 Time of Evaluation: 07:00 - Subjective Subjective: 75 year old male patient with PMHx of lung cancer & HTN presenting 7 days s/p Right 4th digit Amputation was see at bedside this morning. Patient was resting comfortably in bed. AAO x3. The right foot dressing was clean dry and intact today. Patient denies of any pain to the surgical site. Patient wishes to go home. Patient denies of any N/V/F/C or SOB today Objective - Vital Signs/Intake and Output Vital Signs (last 24 hours): Temp Pulse Resp BP Pulse Ox 98.2 F 81 20 142/78 97 07/18/16 16:21 07/18/16 16:21 07/18/16 16:21 07/18/16 16:21 07/18/16 16:21 - Medications Medications: Current Medications Amlodipine Besylate (Norvasc) 5 mg PO DAILY [facility] Last Admin: 07/18/16 08:47 Dose: 5 mg Enalapril Maleate (Vasotec) 20 mg PO DAILY [facility] Last Admin: 07/18/16 08:48 Dose: 20 mg Enoxaparin Sodium (Lovenox) 40 mg SC DAILY [facility] PRN Reason: Protocol Last Admin: 07/18/16 08:47 Dose: 40 mg Meropenem 1 gm/ Sodium (Chloride) 100 mls @ 100 mls/hr IVPB Q12@0500,1700 [facility] Last Admin: 07/18/16 06:01 Dose: 100 mls/hr Vancomycin HCl 500 mg/ Sodium (Chloride) 100 mls @ 100 mls/hr IVPB Q12@0500, 1700 [facility] Last Admin: 07/18/16 04:45 Dose: 100 mls/hr Ketorolac Tromethamine (Toradol) 15 mg IM Q6 PRN PRN Reason: Pain, moderate (4-7) Ondansetron HCl (Zofran Odt) 8 mg PO Q8 PRN PRN Reason: nausea Pantoprazole Sodium (Protonix Ec Tab) 40 mg PO DAILY [facility] Last Admin: 07/18/16 08:48 Dose: 40 mg Prednisone (Prednisone Tab) 10 mg PO DAILY [facility] Last Admin: 07/18/16 08:48 Dose: 10 mg Tamsulosin HCl (Flomax) 0.4 mg PO DAILY [facility] Last Admin: 07/18/16 08:47 Dose: 0.4 mg Tramadol HCl (Ultram) 50 mg PO BID [facility] Last Admin: 07/18/16 08:48 Dose: 50 mg Zolpidem Tartrate (Ambien) 5 mg PO HS PRN PRN Reason: Insomnia Last Admin: 07/17/16 21:06 Dose: 5 mg - Labs Labs: 07/17/16 07:16 07/17/16 07:16 - Constitutional Appears: Well, Non-toxic, No Acute Distress - Extremities Exam Additional comments: Right lower extremity focused. DERM: 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 site noted with sutures intact, dried blood noted. No malodor noted. No erythema is noted. No crepitus / fluctuance is noted. No purulent drainage is noted. No maceration to the incision site noted. VASC: DP pulse weakly palpable secondary to pitting edema, PT pulses is palpable graded 2/4. Non-pitting edema noted to dorsal aspect of right foot extending to rear-foot. Capillary refill time to 5th digits was immediate, <3 seconds to remaining digits. NEURO: Protective sensation grossly absent at level of digits. ORTHO: Partial amputation noted to right 4th digit. - Neurological Exam Neurological Exam: Alert, Awake, Oriented x3 - Psychiatric Exam Psychiatric exam: Normal Affect, Normal Mood - Skin Skin Exam: Normal Color, Warm Assessment and Plan - Assessment and Plan (Free Text) Assessment: 75 year old male patient 7 days s/p 4th digit partial amputation Plan: Patient examined and evaluated at bedside this AM Chart, labs, and vitals reviewed. Amputation site was irrigated with copious amounts of normal sterile saline Amputation site re-packed with new 1/4 inch packing, dressed with sterile gauze , ABD, kerlix. Continue IV abx per ID Continue pain medication Cultures from OR; Final Staph Aureus Bone Cx : Viable Tissue with no acute OM to a fragment (Another frag: viable with OM) Partial weight bearing to right foot Patient stable from podiatry stand point. Patient to follow up with Dr. Treadwell upon discharge. Podiatry will continue to follow patient while in house
--- NOTE | 2016-07-18 23:20 | CP.PCM.PN ---
Subjective - Date & Time of Evaluation Date of Evaluation: 07/18/16 Time of Evaluation: 17:45 Objective - Vital Signs/Intake and Output Vital Signs (last 24 hours): Temp Pulse Resp BP Pulse Ox 99.3 F 75 20 136/87 97 07/18/16 20:34 07/18/16 20:34 07/18/16 20:34 07/18/16 20:34 07/18/16 20:34 - Medications Medications: Current Medications Amlodipine Besylate (Norvasc) 5 mg PO DAILY [facility] Last Admin: 07/18/16 08:47 Dose: 5 mg Enalapril Maleate (Vasotec) 20 mg PO DAILY [facility] Last Admin: 07/18/16 08:48 Dose: 20 mg Enoxaparin Sodium (Lovenox) 40 mg SC DAILY [facility] PRN Reason: Protocol Last Admin: 07/18/16 08:47 Dose: 40 mg Meropenem 1 gm/ Sodium (Chloride) 100 mls @ 100 mls/hr IVPB Q12@0500,1700 [facility] Last Admin: 07/18/16 17:27 Dose: 100 mls/hr Vancomycin HCl 500 mg/ Sodium (Chloride) 100 mls @ 100 mls/hr IVPB Q12@0500, 1700 [facility] Last Admin: 07/18/16 17:28 Dose: 100 mls/hr Ketorolac Tromethamine (Toradol) 15 mg IM Q6 PRN PRN Reason: Pain, moderate (4-7) Ondansetron HCl (Zofran Odt) 8 mg PO Q8 PRN PRN Reason: nausea Pantoprazole Sodium (Protonix Ec Tab) 40 mg PO DAILY [facility] Last Admin: 07/18/16 08:48 Dose: 40 mg Prednisone (Prednisone Tab) 10 mg PO DAILY [facility] Last Admin: 07/18/16 08:48 Dose: 10 mg Tamsulosin HCl (Flomax) 0.4 mg PO DAILY [facility] Last Admin: 07/18/16 08:47 Dose: 0.4 mg Tramadol HCl (Ultram) 50 mg PO BID [facility] Last Admin: 07/18/16 17:28 Dose: 50 mg Zolpidem Tartrate (Ambien) 5 mg PO HS PRN PRN Reason: Insomnia Last Admin: 07/18/16 21:05 Dose: 5 mg - Labs Labs: 07/17/16 07:16 07/17/16 07:16 Assessment and Plan (1) Cellulitis, leg Status: Acute (2) Essential hypertension Status: Chronic (3) DVT prophylaxis Status: Inactive
[2016-07-19] MEDS: Meropenem 1 GM in Sodium Chloride 0.9% 100 ML IVPB SCH ×2 (05:04→16:42)
[2016-07-19] MEDS: Enoxaparin 40 mg Syringe SC SCH (10:00)
[2016-07-19] MEDS: Pantoprazole 40 mg EC Tab PO SCH (10:00)
--- NOTE | 2016-07-19 10:57 | CP.PCM.PN ---
Subjective - Date & Time of Evaluation Date of Evaluation: 07/19/16 Time of Evaluation: 07:30 - Subjective Subjective: 75 year old male patient with PMHx of lung cancer & HTN presenting 8 days s/p Right 4th digit Amputation was see at bedside this morning with attending Dr. Treadwell. Patient was resting comfortably in bed. AAO x3. The right foot dressing was clean dry and intact. Patient denies of any pain to the surgical site. Patient denies of any N/V/F/C or SOB today Objective - Vital Signs/Intake and Output Vital Signs (last 24 hours): Temp Pulse Resp BP Pulse Ox 97.7 F 62 20 125/70 99 07/19/16 08:13 07/19/16 10:00 07/19/16 08:13 07/19/16 10:00 07/19/16 08:13 - Medications Medications: Current Medications Amlodipine Besylate (Norvasc) 5 mg PO DAILY [facility] Last Admin: 07/19/16 10:00 Dose: 5 mg Enalapril Maleate (Vasotec) 20 mg PO DAILY [facility] Last Admin: 07/19/16 10:00 Dose: 20 mg Enoxaparin Sodium (Lovenox) 40 mg SC DAILY [facility] PRN Reason: Protocol Last Admin: 07/19/16 10:00 Dose: 40 mg Meropenem 1 gm/ Sodium (Chloride) 100 mls @ 100 mls/hr IVPB Q12@0500,1700 [facility] Last Admin: 07/19/16 05:04 Dose: 100 mls/hr Vancomycin HCl 500 mg/ Sodium (Chloride) 100 mls @ 100 mls/hr IVPB Q12@0500, 1700 [facility] Last Admin: 07/19/16 04:57 Dose: 100 mls/hr Ketorolac Tromethamine (Toradol) 15 mg IM Q6 PRN PRN Reason: Pain, moderate (4-7) Ondansetron HCl (Zofran Odt) 8 mg PO Q8 PRN PRN Reason: nausea Pantoprazole Sodium (Protonix Ec Tab) 40 mg PO DAILY [facility] Last Admin: 07/19/16 10:00 Dose: 40 mg Prednisone (Prednisone Tab) 10 mg PO DAILY [facility] Last Admin: 07/19/16 10:00 Dose: 10 mg Tamsulosin HCl (Flomax) 0.4 mg PO DAILY [facility] Last Admin: 07/19/16 10:00 Dose: 0.4 mg Tramadol HCl (Ultram) 50 mg PO BID [facility] Last Admin: 07/19/16 10:01 Dose: Not Given Zolpidem Tartrate (Ambien) 5 mg PO HS PRN PRN Reason: Insomnia Last Admin: 07/18/16 21:05 Dose: 5 mg - Labs Labs: 07/17/16 07:16 07/17/16 07:16 - Constitutional Appears: Well, Non-toxic, No Acute Distress - Extremities Exam Additional comments: Right lower extremity focused. DERM: 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 site noted with sutures intact, dried blood noted. No malodor noted. No erythema is noted. No crepitus / fluctuance is noted. No purulent drainage is noted. No maceration to the incision site noted. VASC: DP pulse weakly palpable secondary to pitting edema, PT pulses is palpable graded 2/4. Non-pitting edema noted to dorsal aspect of right foot extending to rear-foot. Capillary refill time to 5th digits was immediate, <3 seconds to remaining digits. NEURO: Protective sensation grossly absent at level of digits. ORTHO: Partial amputation noted to right 4th digit. - Neurological Exam Neurological Exam: Alert, Awake, Oriented x3 - Psychiatric Exam Psychiatric exam: Normal Affect, Normal Mood - Skin Skin Exam: Normal Color, Warm Assessment and Plan - Assessment and Plan (Free Text) Assessment: 75 year old male patient 8 days s/p 4th digit partial amputation Plan: Patient examined and evaluated at bedside this AM Chart, labs, and vitals reviewed. Amputation site was irrigated with copious amounts of normal sterile saline Amputation site re-packed with new 1/4 inch packing, dressed with sterile gauze , ABD, kerlix. Continue IV abx per ID Continue pain medication Cultures from OR; Final Staph Aureus Bone Cx : Viable Tissue with no acute OM to a fragment (Another frag: viable with OM) Partial weight bearing to right foot Patient to follow up with Dr. Treadwell upon discharge. Podiatry will continue to follow patient while in house
--- NOTE | 2016-07-19 15:04 | CP.PCM.PN ---
Subjective - Date & Time of Evaluation Date of Evaluation: 07/19/16 Time of Evaluation: 15:00 Objective - Vital Signs/Intake and Output Vital Signs (last 24 hours): Temp Pulse Resp BP Pulse Ox 97.7 F 62 20 125/70 99 07/19/16 08:13 07/19/16 10:00 07/19/16 08:13 07/19/16 10:00 07/19/16 08:13 - Medications Medications: Current Medications Amlodipine Besylate (Norvasc) 5 mg PO DAILY [facility] Last Admin: 07/19/16 10:00 Dose: 5 mg Enalapril Maleate (Vasotec) 20 mg PO DAILY [facility] Last Admin: 07/19/16 10:00 Dose: 20 mg Enoxaparin Sodium (Lovenox) 40 mg SC DAILY [facility] PRN Reason: Protocol Last Admin: 07/19/16 10:00 Dose: 40 mg Meropenem 1 gm/ Sodium (Chloride) 100 mls @ 100 mls/hr IVPB Q12@0500,1700 [facility] Last Admin: 07/19/16 05:04 Dose: 100 mls/hr Vancomycin HCl 500 mg/ Sodium (Chloride) 100 mls @ 100 mls/hr IVPB Q12@0500, 1700 [facility] Last Admin: 07/19/16 04:57 Dose: 100 mls/hr Ketorolac Tromethamine (Toradol) 15 mg IM Q6 PRN PRN Reason: Pain, moderate (4-7) Ondansetron HCl (Zofran Odt) 8 mg PO Q8 PRN PRN Reason: nausea Pantoprazole Sodium (Protonix Ec Tab) 40 mg PO DAILY [facility] Last Admin: 07/19/16 10:00 Dose: 40 mg Prednisone (Prednisone Tab) 10 mg PO DAILY [facility] Last Admin: 07/19/16 10:00 Dose: 10 mg Tamsulosin HCl (Flomax) 0.4 mg PO DAILY [facility] Last Admin: 07/19/16 10:00 Dose: 0.4 mg Tramadol HCl (Ultram) 50 mg PO BID [facility] Last Admin: 07/19/16 10:01 Dose: Not Given Zolpidem Tartrate (Ambien) 5 mg PO HS PRN PRN Reason: Insomnia Last Admin: 07/18/16 21:05 Dose: 5 mg - Labs Labs: 07/17/16 07:16 07/17/16 07:16 Assessment and Plan (1) Cellulitis, leg Status: Acute (2) Essential hypertension Status: Chronic (3) DVT prophylaxis Status: Inactive
[2016-07-20] MEDS: Meropenem 1 GM in Sodium Chloride 0.9% 100 ML IVPB SCH ×2 (05:06→17:16)
[2016-07-20] MEDS: Pantoprazole 40 mg EC Tab PO SCH (08:36)
[2016-07-20] MEDS: Enoxaparin 40 mg Syringe SC SCH (08:36)
--- NOTE | 2016-07-20 13:12 | CP.PCM.PN ---
Subjective - Date & Time of Evaluation Date of Evaluation: 07/20/16 Time of Evaluation: 09:00 - Subjective Subjective: 75 year old male patient with PMHx of lung cancer & HTN presenting 9 days s/p Right 4th digit Amputation was see at bedside this morning. Patient was resting comfortably in bed. AAO x3. The right foot dressing was clean dry and intact. Patient denies of any pain to the surgical site. Patient denies of any N/V/F/C or SOB today Objective - Vital Signs/Intake and Output Vital Signs (last 24 hours): Temp Pulse Resp BP Pulse Ox 97.8 F 71 20 135/76 99 07/20/16 08:22 07/20/16 08:36 07/20/16 08:22 07/20/16 08:36 07/20/16 08:22 - Medications Medications: Current Medications Amlodipine Besylate (Norvasc) 5 mg PO DAILY [facility] Last Admin: 07/20/16 08:36 Dose: 5 mg Enalapril Maleate (Vasotec) 20 mg PO DAILY [facility] Last Admin: 07/20/16 08:35 Dose: 20 mg Enoxaparin Sodium (Lovenox) 40 mg SC DAILY [facility] PRN Reason: Protocol Last Admin: 07/20/16 08:36 Dose: 40 mg Meropenem 1 gm/ Sodium (Chloride) 100 mls @ 100 mls/hr IVPB Q12@0500,1700 [facility] Last Admin: 07/20/16 05:06 Dose: 100 mls/hr Vancomycin HCl 500 mg/ Sodium (Chloride) 100 mls @ 100 mls/hr IVPB Q12@0500, 1700 [facility] Last Admin: 07/20/16 05:05 Dose: 100 mls/hr Ketorolac Tromethamine (Toradol) 15 mg IM Q6 PRN PRN Reason: Pain, moderate (4-7) Ondansetron HCl (Zofran Odt) 8 mg PO Q8 PRN PRN Reason: nausea Pantoprazole Sodium (Protonix Ec Tab) 40 mg PO DAILY [facility] Last Admin: 07/20/16 08:36 Dose: 40 mg Prednisone (Prednisone Tab) 10 mg PO DAILY [facility] Last Admin: 07/20/16 08:36 Dose: 10 mg Tamsulosin HCl (Flomax) 0.4 mg PO DAILY [facility] Last Admin: 07/20/16 08:35 Dose: 0.4 mg Tramadol HCl (Ultram) 50 mg PO BID [facility] Last Admin: 07/20/16 08:36 Dose: Not Given Zolpidem Tartrate (Ambien) 5 mg PO HS PRN PRN Reason: Insomnia Last Admin: 07/19/16 21:03 Dose: 5 mg - Labs Labs: 07/17/16 07:16 07/17/16 07:16 - Constitutional Appears: Well, Non-toxic, No Acute Distress - Extremities Exam Additional comments: Right lower extremity focused. DERM: 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 site noted with sutures intact, dried blood noted. No malodor noted. No erythema is noted. No crepitus / fluctuance is noted. No purulent drainage is noted. No maceration to the incision site noted. VASC: DP pulse weakly palpable secondary to pitting edema, PT pulses is palpable graded 2/4. Non-pitting edema noted to dorsal aspect of right foot extending to rear-foot. Capillary refill time to 5th digits was immediate, <3 seconds to remaining digits. NEURO: Protective sensation grossly absent at level of digits. ORTHO: Partial amputation noted to right 4th digit. - Neurological Exam Neurological Exam: Alert, Awake, Oriented x3 - Psychiatric Exam Psychiatric exam: Normal Affect, Normal Mood - Skin Skin Exam: Normal Color, Warm Assessment and Plan - Assessment and Plan (Free Text) Assessment: 75 year old male patient 9 days s/p 4th digit partial amputation Plan: Patient examined and evaluated at bedside this AM Chart, labs, and vitals reviewed. discussed in detail with Dr. Treadwell Amputation site was irrigated with copious amounts of normal sterile saline Amputation site re-packed with new 1/4 inch packing, dressed with sterile gauze , ABD, kerlix. Continue IV abx per ID Continue pain medication Cultures from OR; Final Staph Aureus Bone Cx : Viable Tissue with no acute OM to a fragment (Another frag: viable with OM) Partial weight bearing to right foot Patient to follow up with Dr. Treadwell upon discharge. Podiatry will continue to follow patient while in house
--- NOTE | 2016-07-20 23:30 | CP.PCM.PN ---
Subjective - Date & Time of Evaluation Date of Evaluation: 07/20/16 Time of Evaluation: 13:20 Objective - Vital Signs/Intake and Output Vital Signs (last 24 hours): Temp Pulse Resp BP Pulse Ox 98.1 F 76 20 129/76 98 07/20/16 21:07 07/20/16 21:07 07/20/16 21:07 07/20/16 21:07 07/20/16 21:07 - Medications Medications: Current Medications Amlodipine Besylate (Norvasc) 5 mg PO DAILY [facility] Last Admin: 07/20/16 08:36 Dose: 5 mg Enalapril Maleate (Vasotec) 20 mg PO DAILY [facility] Last Admin: 07/20/16 08:35 Dose: 20 mg Enoxaparin Sodium (Lovenox) 40 mg SC DAILY [facility] PRN Reason: Protocol Last Admin: 07/20/16 08:36 Dose: 40 mg Meropenem 1 gm/ Sodium (Chloride) 100 mls @ 100 mls/hr IVPB Q12@0500,1700 [facility] Last Admin: 07/20/16 17:16 Dose: 100 mls/hr Vancomycin HCl 500 mg/ Sodium (Chloride) 100 mls @ 100 mls/hr IVPB Q12@0500, 1700 [facility] Last Admin: 07/20/16 17:17 Dose: 100 mls/hr Ketorolac Tromethamine (Toradol) 15 mg IM Q6 PRN PRN Reason: Pain, moderate (4-7) Ondansetron HCl (Zofran Odt) 8 mg PO Q8 PRN PRN Reason: nausea Pantoprazole Sodium (Protonix Ec Tab) 40 mg PO DAILY [facility] Last Admin: 07/20/16 08:36 Dose: 40 mg Prednisone (Prednisone Tab) 10 mg PO DAILY [facility] Last Admin: 07/20/16 08:36 Dose: 10 mg Tamsulosin HCl (Flomax) 0.4 mg PO DAILY [facility] Last Admin: 07/20/16 08:35 Dose: 0.4 mg Tramadol HCl (Ultram) 50 mg PO BID [facility] Last Admin: 07/20/16 17:17 Dose: Not Given Zolpidem Tartrate (Ambien) 5 mg PO HS PRN PRN Reason: Insomnia Last Admin: 07/20/16 21:05 Dose: 5 mg - Labs Labs: 07/17/16 07:16 07/17/16 07:16 Assessment and Plan (1) Cellulitis, leg Status: Acute (2) Essential hypertension Status: Chronic (3) DVT prophylaxis Status: Inactive
[2016-07-21] MEDS: Meropenem 1 GM in Sodium Chloride 0.9% 100 ML IVPB SCH ×2 (05:07→16:40)
--- NOTE | 2016-07-21 08:11 | CP.PCM.PN ---
<RichardsonNancy - Last Filed: 07/21/16 10:17> Objective - Vital Signs/Intake and Output Vital Signs (last 24 hours): Temp Pulse Resp BP Pulse Ox 98.2 F 74 20 129/77 99 07/21/16 08:23 07/21/16 08:25 07/21/16 08:23 07/21/16 08:25 07/21/16 08:23 - Medications Medications: Current Medications Amlodipine Besylate (Norvasc) 5 mg PO DAILY [facility] Last Admin: 07/21/16 08:25 Dose: 5 mg Enalapril Maleate (Vasotec) 20 mg PO DAILY [facility] Last Admin: 07/21/16 08:25 Dose: 20 mg Enoxaparin Sodium (Lovenox) 40 mg SC DAILY [facility] PRN Reason: Protocol Last Admin: 07/21/16 08:25 Dose: 40 mg Meropenem 1 gm/ Sodium (Chloride) 100 mls @ 100 mls/hr IVPB Q12@0500,1700 [facility] Last Admin: 07/21/16 05:07 Dose: 100 mls/hr Vancomycin HCl 500 mg/ Sodium (Chloride) 100 mls @ 100 mls/hr IVPB Q12@0500, 1700 [facility] Last Admin: 07/21/16 05:07 Dose: 100 mls/hr Ketorolac Tromethamine (Toradol) 15 mg IM Q6 PRN PRN Reason: Pain, moderate (4-7) Ondansetron HCl (Zofran Odt) 8 mg PO Q8 PRN PRN Reason: nausea Pantoprazole Sodium (Protonix Ec Tab) 40 mg PO DAILY [facility] Last Admin: 07/21/16 08:25 Dose: 40 mg Prednisone (Prednisone Tab) 10 mg PO DAILY [facility] Last Admin: 07/21/16 08:25 Dose: 10 mg Tamsulosin HCl (Flomax) 0.4 mg PO DAILY [facility] Last Admin: 07/21/16 08:25 Dose: 0.4 mg Tramadol HCl (Ultram) 50 mg PO BID PRN PRN Reason: Pain, moderate (4-7) Zolpidem Tartrate (Ambien) 5 mg PO HS PRN PRN Reason: Insomnia Last Admin: 07/20/16 21:05 Dose: 5 mg - Labs Labs: 07/17/16 07:16 07/17/16 07:16 Assessment and Plan - Assessment and Plan (Free Text) Assessment: 75 year old male patient 10 days s/p 4th digit partial amputation, secondary to acute OM of 4th digit. <Georgette Willoughby - Last Filed: 07/21/16 12:02> Subjective - Date & Time of Evaluation Date of Evaluation: 07/21/16 Time of Evaluation: 08:30 - Subjective Subjective: 75 year old male with PMHx of lung cancer & HTN presenting 10 days s/p Right 4th digit Amputation was see at bedside this morning. Patient was resting comfortably in bed. AAO x3. Dressing was clean dry and intact to right foot. Patient denies of any pain to the surgical site. Denies any n/v/f/c/sob/cp. Objective - Vital Signs/Intake and Output Vital Signs (last 24 hours): Temp Pulse Resp BP Pulse Ox 98.1 F 76 20 129/76 98 07/20/16 21:07 07/20/16 21:07 07/20/16 21:07 07/20/16 21:07 07/20/16 21:07 - Medications Medications: Current Medications Amlodipine Besylate (Norvasc) 5 mg PO DAILY [facility] Last Admin: 07/20/16 08:36 Dose: 5 mg Enalapril Maleate (Vasotec) 20 mg PO DAILY [facility] Last Admin: 07/20/16 08:35 Dose: 20 mg Enoxaparin Sodium (Lovenox) 40 mg SC DAILY [facility] PRN Reason: Protocol Last Admin: 07/20/16 08:36 Dose: 40 mg Meropenem 1 gm/ Sodium (Chloride) 100 mls @ 100 mls/hr IVPB Q12@0500,1700 [facility] Last Admin: 07/21/16 05:07 Dose: 100 mls/hr Vancomycin HCl 500 mg/ Sodium (Chloride) 100 mls @ 100 mls/hr IVPB Q12@0500, 1700 [facility] Last Admin: 07/21/16 05:07 Dose: 100 mls/hr Ketorolac Tromethamine (Toradol) 15 mg IM Q6 PRN PRN Reason: Pain, moderate (4-7) Ondansetron HCl (Zofran Odt) 8 mg PO Q8 PRN PRN Reason: nausea Pantoprazole Sodium (Protonix Ec Tab) 40 mg PO DAILY [facility] Last Admin: 07/20/16 08:36 Dose: 40 mg Prednisone (Prednisone Tab) 10 mg PO DAILY [facility] Last Admin: 07/20/16 08:36 Dose: 10 mg Tamsulosin HCl (Flomax) 0.4 mg PO DAILY [facility] Last Admin: 07/20/16 08:35 Dose: 0.4 mg Tramadol HCl (Ultram) 50 mg PO BID [facility] Last Admin: 07/20/16 17:17 Dose: Not Given Zolpidem Tartrate (Ambien) 5 mg PO HS PRN PRN Reason: Insomnia Last Admin: 07/20/16 21:05 Dose: 5 mg - Labs Labs: 07/17/16 07:16 07/17/16 07:16 - Constitutional Appears: Well, Non-toxic, No Acute Distress - Extremities Exam Additional comments: Right lower extremity focused exam: VASC: DP pulse palpable, PT pulses is palpable graded 2/4. Capillary refill time to 5th digits was immediate, < 3 seconds to remaining digits. DERM: 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 site noted with sutures intact, dried blood noted. No malodor, no erythema, no fluctuance, no purulence, no drainage noted. NEURO: Protective sensation diminished. ORTHO: Partial amputation noted to right 4th digit. - Neurological Exam Neurological Exam: Alert, Awake, Oriented x3 - Psychiatric Exam Psychiatric exam: Normal Affect, Normal Mood Assessment and Plan - Assessment and Plan (Free Text) Assessment: 75 year old male patient 10 days s/p 4th digit partial amputation Plan: Patient examined and evaluated Discussed in detail with attending, Dr. Treadwell Chart, labs, and vitals reviewed. Amputation site was irrigated with copious amounts of normal sterile saline Amputation site re-packed with new 1/4 inch packing, dressed with sterile gauze , kerlix. Continue IV abx per ID Continue pain medication Partial weight bearing to right foot Patient to follow up with Dr. Treadwell upon discharge. Podiatry will continue to follow patient while in house
[2016-07-21] MEDS: Enoxaparin 40 mg Syringe SC SCH (08:25)
[2016-07-21] MEDS: Pantoprazole 40 mg EC Tab PO SCH (08:25)
--- NOTE | 2016-07-21 12:04 | CP.PCM.PN ---
Subjective - Date & Time of Evaluation Date of Evaluation: 07/21/16 Time of Evaluation: 09:00 - Subjective Subjective: 75 year old male with PMHx of lung cancer & HTN presenting 10 days s/p Right 4th digit Amputation was see at bedside this morning. Patient was resting comfortably in bed. AAO x3. Dressing was clean dry and intact to right foot. Patient denies of any pain to the surgical site. Denies any n/v/f/c/sob/cp. Objective - Vital Signs/Intake and Output Vital Signs (last 24 hours): Temp Pulse Resp BP Pulse Ox 98.2 F 74 20 129/77 99 07/21/16 08:23 07/21/16 08:25 07/21/16 08:23 07/21/16 08:25 07/21/16 08:23 - Medications Medications: Current Medications Amlodipine Besylate (Norvasc) 5 mg PO DAILY [facility] Last Admin: 07/21/16 08:25 Dose: 5 mg Enalapril Maleate (Vasotec) 20 mg PO DAILY [facility] Last Admin: 07/21/16 08:25 Dose: 20 mg Enoxaparin Sodium (Lovenox) 40 mg SC DAILY [facility] PRN Reason: Protocol Last Admin: 07/21/16 08:25 Dose: 40 mg Meropenem 1 gm/ Sodium (Chloride) 100 mls @ 100 mls/hr IVPB Q12@0500,1700 [facility] Last Admin: 07/21/16 05:07 Dose: 100 mls/hr Vancomycin HCl 500 mg/ Sodium (Chloride) 100 mls @ 100 mls/hr IVPB Q12@0500, 1700 [facility] Last Admin: 07/21/16 05:07 Dose: 100 mls/hr Ketorolac Tromethamine (Toradol) 15 mg IM Q6 PRN PRN Reason: Pain, moderate (4-7) Ondansetron HCl (Zofran Odt) 8 mg PO Q8 PRN PRN Reason: nausea Pantoprazole Sodium (Protonix Ec Tab) 40 mg PO DAILY [facility] Last Admin: 07/21/16 08:25 Dose: 40 mg Prednisone (Prednisone Tab) 10 mg PO DAILY [facility] Last Admin: 07/21/16 08:25 Dose: 10 mg Tamsulosin HCl (Flomax) 0.4 mg PO DAILY [facility] Last Admin: 07/21/16 08:25 Dose: 0.4 mg Tramadol HCl (Ultram) 50 mg PO BID PRN PRN Reason: Pain, moderate (4-7) Zolpidem Tartrate (Ambien) 5 mg PO HS PRN PRN Reason: Insomnia Last Admin: 07/20/16 21:05 Dose: 5 mg - Labs Labs: 07/17/16 07:16 07/17/16 07:16 - Constitutional Appears: Well, Non-toxic, No Acute Distress - Extremities Exam Additional comments: Right lower extremity focused exam: VASC: DP pulse palpable, PT pulses is palpable graded 2/4. Capillary refill time to 5th digits was immediate, < 3 seconds to remaining digits. DERM: 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 site noted with sutures intact, dried blood noted. No malodor, no erythema, no fluctuance, no purulence, no drainage noted. NEURO: Protective sensation diminished. ORTHO: Partial amputation noted to right 4th digit. - Neurological Exam Neurological Exam: Alert, Awake, Oriented x3 - Psychiatric Exam Psychiatric exam: Normal Affect, Normal Mood Assessment and Plan - Assessment and Plan (Free Text) Assessment: 75 year old male patient 10 days s/p 4th digit partial amputation, secondary to acute OM of 4th digit. Plan: Patient examined and evaluated Discussed with attending, Dr. Treadwell Chart, labs, and vitals reviewed. Amputation site was irrigated with copious amounts of normal sterile saline Amputation site re-packed with new 1/4 inch packing, dressed with sterile gauze , ABD, kerlix. Continue IV abx per ID Continue pain medication Partial weight bearing to right foot Patient to follow up with Dr. Treadwell upon discharge. Podiatry will continue to follow patient while in house
[2016-07-21] MEDS: Lactobacillus Acidophilus 500 MU Cap PO SCH (17:17)
--- NOTE | 2016-07-21 23:46 | CP.PCM.PN ---
Objective - Vital Signs/Intake and Output Vital Signs (last 24 hours): Temp Pulse Resp BP Pulse Ox 98.2 F 77 20 125/72 94 L 07/21/16 20:11 07/21/16 20:11 07/21/16 20:11 07/21/16 20:11 07/21/16 20:11 - Medications Medications: Current Medications Amlodipine Besylate (Norvasc) 5 mg PO DAILY [facility] Last Admin: 07/21/16 08:25 Dose: 5 mg Enalapril Maleate (Vasotec) 20 mg PO DAILY [facility] Last Admin: 07/21/16 08:25 Dose: 20 mg Enoxaparin Sodium (Lovenox) 40 mg SC DAILY [facility] PRN Reason: Protocol Last Admin: 07/21/16 08:25 Dose: 40 mg Meropenem 1 gm/ Sodium (Chloride) 100 mls @ 100 mls/hr IVPB Q12@0500,1700 [facility] Last Admin: 07/21/16 16:40 Dose: 100 mls/hr Vancomycin HCl 500 mg/ Sodium (Chloride) 100 mls @ 100 mls/hr IVPB Q12@0500, 1700 [facility] Last Admin: 07/21/16 17:16 Dose: 100 mls/hr Ketorolac Tromethamine (Toradol) 15 mg IM Q6 PRN PRN Reason: Pain, moderate (4-7) Lactobacillus Acidophilus (Bacid Acidophilus) 1 cap PO BID [facility] Last Admin: 07/21/16 17:17 Dose: 1 cap Ondansetron HCl (Zofran Odt) 8 mg PO Q8 PRN PRN Reason: nausea Pantoprazole Sodium (Protonix Ec Tab) 40 mg PO DAILY [facility] Last Admin: 07/21/16 08:25 Dose: 40 mg Prednisone (Prednisone Tab) 10 mg PO DAILY [facility] Last Admin: 07/21/16 08:25 Dose: 10 mg Tamsulosin HCl (Flomax) 0.4 mg PO DAILY [facility] Last Admin: 07/21/16 08:25 Dose: 0.4 mg Tramadol HCl (Ultram) 50 mg PO BID PRN PRN Reason: Pain, moderate (4-7) Zolpidem Tartrate (Ambien) 5 mg PO HS PRN PRN Reason: Insomnia Last Admin: 07/21/16 23:33 Dose: 5 mg - Labs Labs: 07/17/16 07:16 07/17/16 07:16 Assessment and Plan (1) Cellulitis, leg Status: Acute (2) Essential hypertension Status: Chronic (3) DVT prophylaxis Status: Inactive
[2016-07-22] MEDS: Meropenem 1 GM in Sodium Chloride 0.9% 100 ML IVPB SCH (05:50)
[2016-07-22] MEDS: Pantoprazole 40 mg EC Tab PO SCH (08:56)
[2016-07-22] MEDS: Lactobacillus Acidophilus 500 MU Cap PO SCH ×2 (08:56→16:35)
[2016-07-22] MEDS: Enoxaparin 40 mg Syringe SC SCH (08:57)
--- NOTE | 2016-07-22 09:12 | CP.PCM.PN ---
Subjective - Date & Time of Evaluation Date of Evaluation: 07/22/16 Time of Evaluation: 09:10 - Subjective Subjective: 75 year old male with PMHx of lung cancer & HTN presenting 1 days s/p Right 4th digit Amputation was see at bedside this morning, with attending Dr. Treadwell. Patient was resting comfortably in bed. AAO x3. Dressing was clean dry and intact to right foot. Patient denies of any pain to the surgical site. Denies any n/v/f/c/sob/cp. Objective - Vital Signs/Intake and Output Vital Signs (last 24 hours): Temp Pulse Resp BP Pulse Ox 98.2 F 76 20 122/68 93 L 07/22/16 08:27 07/22/16 08:56 07/22/16 08:27 07/22/16 08:56 07/22/16 08:27 - Medications Medications: Current Medications Amlodipine Besylate (Norvasc) 5 mg PO DAILY [facility] Last Admin: 07/22/16 08:56 Dose: 5 mg Enalapril Maleate (Vasotec) 20 mg PO DAILY [facility] Last Admin: 07/22/16 08:56 Dose: 20 mg Enoxaparin Sodium (Lovenox) 40 mg SC DAILY [facility] PRN Reason: Protocol Last Admin: 07/22/16 08:57 Dose: 40 mg Meropenem 1 gm/ Sodium (Chloride) 100 mls @ 100 mls/hr IVPB Q12@0500,1700 [facility] Last Admin: 07/22/16 05:50 Dose: 100 mls/hr Vancomycin HCl 500 mg/ Sodium (Chloride) 100 mls @ 100 mls/hr IVPB Q12@0500, 1700 [facility] Last Admin: 07/22/16 04:45 Dose: 100 mls/hr Ketorolac Tromethamine (Toradol) 15 mg IM Q6 PRN PRN Reason: Pain, moderate (4-7) Lactobacillus Acidophilus (Bacid Acidophilus) 1 cap PO BID [facility] Last Admin: 07/22/16 08:56 Dose: 1 cap Ondansetron HCl (Zofran Odt) 8 mg PO Q8 PRN PRN Reason: nausea Pantoprazole Sodium (Protonix Ec Tab) 40 mg PO DAILY [facility] Last Admin: 07/22/16 08:56 Dose: 40 mg Prednisone (Prednisone Tab) 10 mg PO DAILY [facility] Last Admin: 07/22/16 08:57 Dose: 10 mg Tamsulosin HCl (Flomax) 0.4 mg PO DAILY [facility] Last Admin: 07/22/16 08:56 Dose: 0.4 mg Tramadol HCl (Ultram) 50 mg PO BID PRN PRN Reason: Pain, moderate (4-7) Last Admin: 07/22/16 08:55 Dose: 50 mg Zolpidem Tartrate (Ambien) 5 mg PO HS PRN PRN Reason: Insomnia Last Admin: 07/21/16 23:33 Dose: 5 mg - Labs Labs: 07/17/16 07:16 07/17/16 07:16 - Constitutional Appears: Well, Non-toxic, No Acute Distress - Extremities Exam Additional comments: Right lower extremity focused exam: VASC: DP pulse palpable, PT pulses is palpable graded 2/4. Capillary refill time to 5th digits was immediate, < 3 seconds to remaining digits. DERM: 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 site noted with sutures intact. No malodor, no erythema, no fluctuance, no purulence, no drainage noted. NEURO: Protective sensation diminished. ORTHO: Partial amputation noted to right 4th digit. - Neurological Exam Neurological Exam: Alert, Awake, Oriented x3 - Psychiatric Exam Psychiatric exam: Normal Affect, Normal Mood Assessment and Plan - Assessment and Plan (Free Text) Assessment: 75 year old male patient 11 days s/p 4th digit partial amputation, secondary to acute OM of 4th digit. Plan: Patient examined and evaluated Discussed with attending, Dr. Treadwell Chart, labs, and vitals reviewed. Amputation site was irrigated with copious amounts of normal sterile saline Amputation site dressed with sterile gauze, ABD, kerlix. Continue IV abx per ID Continue pain medication Partial weight bearing to right foot Sutures to be removed on Thursday before discharge Patient to go home on oral abx? Patient to follow up with Dr. Treadwell upon discharge. Podiatry will continue to follow patient while in house
--- NOTE | 2016-07-22 14:50 | CP.PCM.PN ---
Subjective - Date & Time of Evaluation Date of Evaluation: 07/22/16 Time of Evaluation: 14:46 - Subjective Subjective: ID NOTE PATIENT IS DOING WELL C PHYSIOTHERAPY HAS RECEIVED 13 DAYS OF VANCOMYCIN 11 DAYS OF MEROPENEM WILL BE HOSPITALIZED TILL THURSDAY IF INSURANCE WILL COVER ZYVOX PO CAN TAKE 14 DAYS OF IT IT HAS GOOD BONE ABSORPTION. VANCOMYCIN TROUGH,CMP,CBC c DIFF ORDERED have discontinued meropenem and started ertapenem Objective - Vital Signs/Intake and Output Vital Signs (last 24 hours): Temp Pulse Resp BP Pulse Ox 98.2 F 76 20 122/68 93 L 07/22/16 08:27 07/22/16 08:56 07/22/16 08:27 07/22/16 08:56 07/22/16 08:27 - Medications Medications: Current Medications Amlodipine Besylate (Norvasc) 5 mg PO DAILY [facility] Last Admin: 07/22/16 08:56 Dose: 5 mg Enalapril Maleate (Vasotec) 20 mg PO DAILY [facility] Last Admin: 07/22/16 08:56 Dose: 20 mg Enoxaparin Sodium (Lovenox) 40 mg SC DAILY [facility] PRN Reason: Protocol Last Admin: 07/22/16 08:57 Dose: 40 mg Vancomycin HCl 500 mg/ Sodium (Chloride) 100 mls @ 100 mls/hr IVPB Q12@0500, 1700 [facility] Last Admin: 07/22/16 04:45 Dose: 100 mls/hr Ertapenem 1 gm/ Sodium (Chloride) 100 mls @ 100 mls/hr IVPB DAILY [facility] Ketorolac Tromethamine (Toradol) 15 mg IM Q6 PRN PRN Reason: Pain, moderate (4-7) Lactobacillus Acidophilus (Bacid Acidophilus) 1 cap PO BID [facility] Last Admin: 07/22/16 08:56 Dose: 1 cap Ondansetron HCl (Zofran Odt) 8 mg PO Q8 PRN PRN Reason: nausea Pantoprazole Sodium (Protonix Ec Tab) 40 mg PO DAILY [facility] Last Admin: 07/22/16 08:56 Dose: 40 mg Prednisone (Prednisone Tab) 10 mg PO DAILY [facility] Last Admin: 07/22/16 08:57 Dose: 10 mg Tamsulosin HCl (Flomax) 0.4 mg PO DAILY [facility] Last Admin: 07/22/16 08:56 Dose: 0.4 mg Tramadol HCl (Ultram) 50 mg PO BID PRN PRN Reason: Pain, moderate (4-7) Last Admin: 07/22/16 08:55 Dose: 50 mg Zolpidem Tartrate (Ambien) 5 mg PO HS PRN PRN Reason: Insomnia Last Admin: 07/21/16 23:33 Dose: 5 mg - Labs Labs: 07/17/16 07:16 07/17/16 07:16
--- NOTE | 2016-07-22 23:27 | CP.PCM.PN ---
Objective - Vital Signs/Intake and Output Vital Signs (last 24 hours): Temp Pulse Resp BP Pulse Ox 99.9 F H 68 20 126/67 98 07/22/16 20:25 07/22/16 20:25 07/22/16 20:25 07/22/16 20:25 07/22/16 20:25 - Medications Medications: Current Medications Amlodipine Besylate (Norvasc) 5 mg PO DAILY [facility] Last Admin: 07/22/16 08:56 Dose: 5 mg Enalapril Maleate (Vasotec) 20 mg PO DAILY [facility] Last Admin: 07/22/16 08:56 Dose: 20 mg Vancomycin HCl 500 mg/ Sodium (Chloride) 100 mls @ 100 mls/hr IVPB Q12@0500, 1700 [facility] Last Admin: 07/22/16 16:47 Dose: 100 mls/hr Ertapenem 1 gm/ Sodium (Chloride) 100 mls @ 100 mls/hr IVPB DAILY [facility] Ketorolac Tromethamine (Toradol) 15 mg IM Q6 PRN PRN Reason: Pain, moderate (4-7) Lactobacillus Acidophilus (Bacid Acidophilus) 1 cap PO BID [facility] Last Admin: 07/22/16 16:35 Dose: 1 cap Ondansetron HCl (Zofran Odt) 8 mg PO Q8 PRN PRN Reason: nausea Pantoprazole Sodium (Protonix Ec Tab) 40 mg PO DAILY [facility] Last Admin: 07/22/16 08:56 Dose: 40 mg Prednisone (Prednisone Tab) 10 mg PO DAILY [facility] Last Admin: 07/22/16 08:57 Dose: 10 mg Tamsulosin HCl (Flomax) 0.4 mg PO DAILY [facility] Last Admin: 07/22/16 08:56 Dose: 0.4 mg Tramadol HCl (Ultram) 50 mg PO BID PRN PRN Reason: Pain, moderate (4-7) Last Admin: 07/22/16 08:55 Dose: 50 mg Zolpidem Tartrate (Ambien) 5 mg PO HS PRN PRN Reason: Sleep Last Admin: 07/22/16 21:12 Dose: 5 mg - Labs Labs: 07/17/16 07:16 07/17/16 07:16 Assessment and Plan (1) Cellulitis, leg Status: Acute (2) Essential hypertension Status: Chronic (3) DVT prophylaxis Status: Inactive
[2016-07-23 08:12] LABS: BASO % 0.7 % (0.0-2.0); EOS # 0.1 K/uL (0.0-0.7); EOS % 2.6 % (0.0-4.0); HEMATOCRIT 41.3 % (35.0-51.0); LYMPH % 21.8 % (20.0-40.0); MEAN CELL VOLUME 87.3 fl (80.0-94.0); MEAN CORPUSCULAR HEMOGLOBIN 28.9 pg (27.0-31.0); MEAN CORPUSCULAR HGB CONC 33.1 g/dL (33.0-37.0); MEAN PLATELET VOLUME 8.3 fl (7.2-11.7); MONO # 0.5 K/uL (0.0-0.8); MONO % 11.1 % (0.0-10.0); NEUT # 2.9 K/uL (1.8-7.0); NEUT % 63.8 % (50.0-75.0); NRBC % 0.2 % (0.0-0.0); RED CELL DISTRIBUTION WIDTH 13.9 % (11.5-14.5); WHITE BLOOD COUNT 4.5 K/uL (4.8-10.8)
[2016-07-23] MEDS: Lactobacillus Acidophilus 500 MU Cap PO SCH ×2 (08:16→16:33)
[2016-07-23] MEDS: Pantoprazole 40 mg EC Tab PO SCH (08:16)
--- NOTE | 2016-07-23 08:23 | CP.PCM.PN ---
Subjective - Date & Time of Evaluation Date of Evaluation: 07/23/16 Time of Evaluation: 08:21 - Subjective Subjective: 75 year old male with PMHx of lung cancer & HTN presenting 12 days s/p Right 4th digit Amputation was see at bedside this morning. Patient was seen ambulating in room without surgical shoe. Patient in no acute distress, AAO x3. Patient denies of any pain to the surgical site. Denies any n/v/f/c/sob/cp. Objective - Vital Signs/Intake and Output Vital Signs (last 24 hours): Temp Pulse Resp BP Pulse Ox 97.7 F 73 20 109/74 98 07/23/16 07:57 07/23/16 08:17 07/23/16 07:57 07/23/16 08:17 07/23/16 07:57 - Medications Medications: Current Medications Amlodipine Besylate (Norvasc) 5 mg PO DAILY [facility] Last Admin: 07/23/16 08:17 Dose: 5 mg Enalapril Maleate (Vasotec) 20 mg PO DAILY [facility] Last Admin: 07/23/16 08:17 Dose: 20 mg Vancomycin HCl 500 mg/ Sodium (Chloride) 100 mls @ 100 mls/hr IVPB Q12@0500, 1700 [facility] Last Admin: 07/23/16 05:29 Dose: 100 mls/hr Ertapenem 1 gm/ Sodium (Chloride) 100 mls @ 100 mls/hr IVPB DAILY [facility] Last Admin: 07/23/16 08:10 Dose: Not Given Ketorolac Tromethamine (Toradol) 15 mg IM Q6 PRN PRN Reason: Pain, moderate (4-7) Lactobacillus Acidophilus (Bacid Acidophilus) 1 cap PO BID [facility] Last Admin: 07/23/16 08:16 Dose: 1 cap Ondansetron HCl (Zofran Odt) 8 mg PO Q8 PRN PRN Reason: nausea Pantoprazole Sodium (Protonix Ec Tab) 40 mg PO DAILY [facility] Last Admin: 07/23/16 08:16 Dose: 40 mg Prednisone (Prednisone Tab) 10 mg PO DAILY [facility] Last Admin: 07/23/16 08:17 Dose: 10 mg Tamsulosin HCl (Flomax) 0.4 mg PO DAILY [facility] Last Admin: 07/23/16 08:17 Dose: 0.4 mg Tramadol HCl (Ultram) 50 mg PO BID PRN PRN Reason: Pain, moderate (4-7) Last Admin: 07/22/16 08:55 Dose: 50 mg Zolpidem Tartrate (Ambien) 5 mg PO HS PRN PRN Reason: Sleep Last Admin: 07/22/16 21:12 Dose: 5 mg - Labs Labs: 07/17/16 07:16 07/17/16 07:16 - Constitutional Appears: Well, Non-toxic, No Acute Distress - Extremities Exam Additional comments: Right lower extremity focused exam: VASC: DP and PT pulses palpable 2/4. CFT < 3 seconds to remaining digits. Skin temperature warm to warm from proximal to distal. DERM: 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 site noted with sutures intact. No malodor, no erythema, no fluctuance, no purulence, no drainage noted. NEURO: Protective sensation diminished. ORTHO: Partial amputation noted to right 4th digit. - Neurological Exam Neurological Exam: Alert, Awake, Oriented x3 - Psychiatric Exam Psychiatric exam: Normal Affect, Normal Mood Assessment and Plan - Assessment and Plan (Free Text) Assessment: 75 year old male patient 11 days s/p 4th digit partial amputation, secondary to acute OM of 4th digit. Plan: Patient examined and evaluated Discussed with attending, Dr. Treadwell Chart, labs, and vitals reviewed. Amputation site was irrigated with copious amounts of normal sterile saline Amputation site dressed with sterile gauze, ABD, kerlix. Continue IV abx per ID Continue pain medication Partial weight bearing to right foot, with surgical shoe Stressed importance of wearing a surgical shoe Sutures to be removed on Thursday before discharge Patient to go home on oral abx per ID- Zyvox Patient to follow up with Dr. Treadwell upon discharge. Podiatry will continue to follow patient while in house
[2016-07-23 08:27] LABS: ALB/GLOB RATIO 1.2 (1.0-2.1); ALKALINE PHOSPHATASE 69 U/L (38-126); ALT/SGPT 44 U/L (21-72); AST/SGOT 30 U/L (17-59); BILIRUBIN,TOTAL 0.7 mg/dl (0.2-1.3); BLOOD UREA NITROGEN 22 mg/dl (9-20); CALCIUM 8.8 mg/dL (8.4-10.2); CARBON DIOXIDE 26 mmol/L (22-30); CHLORIDE 100 mmol/L (98-107); GFR AFRICAN-AMERICAN > 60; GLUCOSE,RANDOM 84 mg/dL (75-110); SODIUM 138 mmol/l (132-148); TOTAL PROTEIN 6.1 G/DL (6.3-8.2)
--- NOTE | 2016-07-23 16:21 | CP.PCM.PN ---
Subjective - Date & Time of Evaluation Date of Evaluation: 07/23/16 Time of Evaluation: 16:17 - Subjective Subjective: ID NOTE VANCOMYCIN TROUGH IS 5.8 WILL CONTINUE SAME DOSE OF VANCOMYCIN PREPERATION FOR HOME TREATMENT IS BEING MADE Objective - Vital Signs/Intake and Output Vital Signs (last 24 hours): Temp Pulse Resp BP Pulse Ox 97.7 F 73 20 109/74 98 07/23/16 07:57 07/23/16 08:17 07/23/16 07:57 07/23/16 08:17 07/23/16 07:57 - Medications Medications: Current Medications Amlodipine Besylate (Norvasc) 5 mg PO DAILY [facility] Last Admin: 07/23/16 08:17 Dose: 5 mg Enalapril Maleate (Vasotec) 20 mg PO DAILY [facility] Last Admin: 07/23/16 08:17 Dose: 20 mg Enoxaparin Sodium (Lovenox) 40 mg SC DAILY [facility] PRN Reason: Protocol Vancomycin HCl 500 mg/ Sodium (Chloride) 100 mls @ 100 mls/hr IVPB Q12@0500, 1700 [facility] Last Admin: 07/23/16 05:29 Dose: 100 mls/hr Ertapenem 1 gm/ Sodium (Chloride) 100 mls @ 100 mls/hr IVPB DAILY@1700 [facility] Ketorolac Tromethamine (Toradol) 15 mg IM Q6 PRN PRN Reason: Pain, moderate (4-7) Lactobacillus Acidophilus (Bacid Acidophilus) 1 cap PO BID [facility] Last Admin: 07/23/16 08:16 Dose: 1 cap Ondansetron HCl (Zofran Odt) 8 mg PO Q8 PRN PRN Reason: nausea Pantoprazole Sodium (Protonix Ec Tab) 40 mg PO DAILY [facility] Last Admin: 07/23/16 08:16 Dose: 40 mg Prednisone (Prednisone Tab) 10 mg PO DAILY [facility] Last Admin: 07/23/16 08:17 Dose: 10 mg Tamsulosin HCl (Flomax) 0.4 mg PO DAILY [facility] Last Admin: 07/23/16 08:17 Dose: 0.4 mg Tramadol HCl (Ultram) 50 mg PO BID PRN PRN Reason: Pain, moderate (4-7) Last Admin: 07/22/16 08:55 Dose: 50 mg Zolpidem Tartrate (Ambien) 5 mg PO HS PRN PRN Reason: Sleep Last Admin: 07/22/16 21:12 Dose: 5 mg - Labs Labs: 07/23/16 07:47 07/23/16 07:47
--- NOTE | 2016-07-24 00:37 | CP.PCM.PN ---
Subjective - Date & Time of Evaluation Date of Evaluation: 07/23/16 Time of Evaluation: 16:00 Objective - Vital Signs/Intake and Output Vital Signs (last 24 hours): Temp Pulse Resp BP Pulse Ox 98.6 F 77 20 108/58 L 96 07/23/16 21:07 07/23/16 21:07 07/23/16 21:07 07/23/16 21:07 07/23/16 21:07 - Medications Medications: Current Medications Amlodipine Besylate (Norvasc) 5 mg PO DAILY [facility] Last Admin: 07/23/16 08:17 Dose: 5 mg Enalapril Maleate (Vasotec) 20 mg PO DAILY [facility] Last Admin: 07/23/16 08:17 Dose: 20 mg Enoxaparin Sodium (Lovenox) 40 mg SC DAILY [facility] PRN Reason: Protocol Vancomycin HCl 500 mg/ Sodium (Chloride) 100 mls @ 100 mls/hr IVPB Q12@0500, 1700 [facility] Last Admin: 07/23/16 16:33 Dose: Not Given Ertapenem 1 gm/ Sodium (Chloride) 100 mls @ 100 mls/hr IVPB DAILY@1700 [facility] Last Admin: 07/23/16 16:33 Dose: Not Given Ketorolac Tromethamine (Toradol) 15 mg IM Q6 PRN PRN Reason: Pain, moderate (4-7) Lactobacillus Acidophilus (Bacid Acidophilus) 1 cap PO BID [facility] Last Admin: 07/23/16 16:33 Dose: Not Given Ondansetron HCl (Zofran Odt) 8 mg PO Q8 PRN PRN Reason: nausea Pantoprazole Sodium (Protonix Ec Tab) 40 mg PO DAILY [facility] Last Admin: 07/23/16 08:16 Dose: 40 mg Prednisone (Prednisone Tab) 10 mg PO DAILY [facility] Last Admin: 07/23/16 08:17 Dose: 10 mg Tamsulosin HCl (Flomax) 0.4 mg PO DAILY [facility] Last Admin: 07/23/16 08:17 Dose: 0.4 mg Tramadol HCl (Ultram) 50 mg PO BID PRN PRN Reason: Pain, moderate (4-7) Last Admin: 07/22/16 08:55 Dose: 50 mg Zolpidem Tartrate (Ambien) 5 mg PO HS PRN PRN Reason: Sleep Last Admin: 07/23/16 22:47 Dose: 5 mg - Labs Labs: 07/23/16 07:47 07/23/16 07:47 Assessment and Plan (1) Cellulitis, leg Status: Acute (2) Essential hypertension Status: Chronic (3) DVT prophylaxis Status: Inactive
--- NOTE | 2016-07-24 08:46 | CP.PCM.PN ---
Subjective - Date & Time of Evaluation Date of Evaluation: 07/24/16 Time of Evaluation: 08:46 - Subjective Subjective: 75 year old male with PMHx of lung cancer & HTN presenting 13 days s/p Right 4th digit Amputation was see at bedside this morning. Patient states that yesterday he wore his surgical shoe the entire time he was walking, and denies any pain. He states that he is leaving TCU tomorrow and going home. Patient in no acute distress, AAO x3. Denies any n/v/f/c/sob/cp. Objective - Vital Signs/Intake and Output Vital Signs (last 24 hours): Temp Pulse Resp BP Pulse Ox 97.9 F 70 20 124/66 100 07/24/16 07:58 07/24/16 07:58 07/24/16 07:58 07/24/16 07:58 07/24/16 07:58 - Medications Medications: Current Medications Amlodipine Besylate (Norvasc) 5 mg PO DAILY [facility] Last Admin: 07/23/16 08:17 Dose: 5 mg Enalapril Maleate (Vasotec) 20 mg PO DAILY [facility] Last Admin: 07/23/16 08:17 Dose: 20 mg Enoxaparin Sodium (Lovenox) 40 mg SC DAILY [facility] PRN Reason: Protocol Vancomycin HCl 500 mg/ Sodium (Chloride) 100 mls @ 100 mls/hr IVPB Q12@0500, 1700 [facility] Last Admin: 07/24/16 05:10 Dose: 100 mls/hr Ertapenem 1 gm/ Sodium (Chloride) 100 mls @ 100 mls/hr IVPB DAILY@1700 [facility] Last Admin: 07/23/16 16:33 Dose: Not Given Ketorolac Tromethamine (Toradol) 15 mg IM Q6 PRN PRN Reason: Pain, moderate (4-7) Lactobacillus Acidophilus (Bacid Acidophilus) 1 cap PO BID [facility] Last Admin: 07/23/16 16:33 Dose: Not Given Ondansetron HCl (Zofran Odt) 8 mg PO Q8 PRN PRN Reason: nausea Pantoprazole Sodium (Protonix Ec Tab) 40 mg PO DAILY [facility] Last Admin: 07/23/16 08:16 Dose: 40 mg Prednisone (Prednisone Tab) 10 mg PO DAILY [facility] Last Admin: 04/05/17 08:17 Dose: 10 mg Tamsulosin HCl (Flomax) 0.4 mg PO DAILY [facility] Last Admin: 07/23/16 08:17 Dose: 0.4 mg Tramadol HCl (Ultram) 50 mg PO BID PRN PRN Reason: Pain, moderate (4-7) Last Admin: 07/22/16 08:55 Dose: 50 mg Zolpidem Tartrate (Ambien) 5 mg PO HS PRN PRN Reason: Sleep Last Admin: 07/23/16 22:47 Dose: 5 mg - Labs Labs: 07/23/16 07:47 07/23/16 07:47 - Constitutional Appears: Well, Non-toxic, No Acute Distress - Extremities Exam Additional comments: Right lower extremity focused exam: VASC: DP and PT pulses palpable 2/4. CFT < 3 seconds to remaining digits. Skin temperature warm to warm from proximal to distal. DERM: 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 site noted with sutures intact. No malodor, no erythema, no fluctuance, no purulence, no drainage noted. NEURO: Protective sensation diminished. ORTHO: Partial amputation noted to right 4th digit. - Neurological Exam Neurological Exam: Alert, Awake, Oriented x3 - Psychiatric Exam Psychiatric exam: Normal Affect, Normal Mood Assessment and Plan - Assessment and Plan (Free Text) Assessment: 75 year old male patient 13 days s/p 4th digit partial amputation, secondary to acute OM of 4th digit. Plan: Patient examined and evaluated Discussed with attending, Dr. Treadwell Chart, labs, and vitals reviewed. Amputation site was irrigated with copious amounts of normal sterile saline Amputation site dressed with sterile gauze, ABD, kerlix. Continue IV abx per ID Continue pain medication Partial weight bearing to right foot, with surgical shoe Stressed importance of wearing a surgical shoe Sutures to be removed on Thursday in Dr. Oneal office Patient to go home on oral abx per ID- Zyvox Patient to follow up with Dr. Treadwell upon discharge. Podiatry will continue to follow patient while in house
[2016-07-24] MEDS: Pantoprazole 40 mg EC Tab PO SCH (08:50)
[2016-07-24] MEDS: Lactobacillus Acidophilus 500 MU Cap PO SCH ×2 (08:50→17:44)
[2016-07-24] MEDS: Enoxaparin 40 mg Syringe SC SCH (08:51)
--- NOTE | 2016-07-24 19:42 | CP.PCM.PN ---
Subjective - Date & Time of Evaluation Date of Evaluation: 07/24/16 Time of Evaluation: 19:41 - Subjective Subjective: ID NOTE WILL BE DISCHARGED TOMORROW TO RECEIVE 14 DAYS PO ZYVOX FOLLOW UP BLOOD CULTURES ARE NEGATVE Objective - Vital Signs/Intake and Output Vital Signs (last 24 hours): Temp Pulse Resp BP Pulse Ox 97.9 F 70 20 124/66 100 07/24/16 07:58 07/24/16 08:50 07/24/16 07:58 07/24/16 08:50 07/24/16 07:58 - Medications Medications: Current Medications Amlodipine Besylate (Norvasc) 5 mg PO DAILY [facility] Last Admin: 07/24/16 08:50 Dose: 5 mg Enalapril Maleate (Vasotec) 20 mg PO DAILY [facility] Last Admin: 07/24/16 08:51 Dose: 20 mg Enoxaparin Sodium (Lovenox) 40 mg SC DAILY [facility] PRN Reason: Protocol Last Admin: 07/24/16 08:51 Dose: 40 mg Vancomycin HCl 500 mg/ Sodium (Chloride) 100 mls @ 100 mls/hr IVPB Q12@0500, 1700 [facility] Last Admin: 07/24/16 17:44 Dose: 100 mls/hr Ertapenem 1 gm/ Sodium (Chloride) 100 mls @ 100 mls/hr IVPB DAILY@1700 [facility] Last Admin: 07/24/16 19:16 Dose: 100 mls/hr Lactobacillus Acidophilus (Bacid Acidophilus) 1 cap PO BID [facility] Last Admin: 07/24/16 17:44 Dose: 1 cap Ondansetron HCl (Zofran Odt) 8 mg PO Q8 PRN PRN Reason: nausea Pantoprazole Sodium (Protonix Ec Tab) 40 mg PO DAILY [facility] Last Admin: 07/24/16 08:50 Dose: 40 mg Tamsulosin HCl (Flomax) 0.4 mg PO DAILY [facility] Last Admin: 07/24/16 08:50 Dose: 0.4 mg Tramadol HCl (Ultram) 50 mg PO BID PRN PRN Reason: Pain, moderate (4-7) Last Admin: 07/22/16 08:55 Dose: 50 mg Zolpidem Tartrate (Ambien) 5 mg PO HS PRN PRN Reason: Sleep Last Admin: 07/23/16 22:47 Dose: 5 mg - Labs Labs: 07/23/16 07:47 07/23/16 07:47
[2016-07-24 22:00] VITALS: TEMP 98.1; O2SAT 97
--- NOTE | 2016-07-24 22:36 | CP.PCM.PN ---
Subjective - Date & Time of Evaluation Date of Evaluation: 07/24/16 Time of Evaluation: 16:30 Objective - Vital Signs/Intake and Output Vital Signs (last 24 hours): Temp Pulse Resp BP Pulse Ox 98.1 F 89 20 108/85 97 07/24/16 21:59 07/24/16 21:59 07/24/16 21:59 07/24/16 21:59 07/24/16 21:59 - Medications Medications: Current Medications Amlodipine Besylate (Norvasc) 5 mg PO DAILY [facility] Last Admin: 07/24/16 08:50 Dose: 5 mg Enalapril Maleate (Vasotec) 20 mg PO DAILY [facility] Last Admin: 07/24/16 08:51 Dose: 20 mg Enoxaparin Sodium (Lovenox) 40 mg SC DAILY [facility] PRN Reason: Protocol Last Admin: 07/24/16 08:51 Dose: 40 mg Vancomycin HCl 500 mg/ Sodium (Chloride) 100 mls @ 100 mls/hr IVPB Q12@0500, 1700 [facility] Last Admin: 07/24/16 17:44 Dose: 100 mls/hr Ertapenem 1 gm/ Sodium (Chloride) 100 mls @ 100 mls/hr IVPB DAILY@1700 [facility] Last Admin: 07/24/16 19:16 Dose: 100 mls/hr Lactobacillus Acidophilus (Bacid Acidophilus) 1 cap PO BID [facility] Last Admin: 07/24/16 17:44 Dose: 1 cap Ondansetron HCl (Zofran Odt) 8 mg PO Q8 PRN PRN Reason: nausea Pantoprazole Sodium (Protonix Ec Tab) 40 mg PO DAILY [facility] Last Admin: 07/24/16 08:50 Dose: 40 mg Tamsulosin HCl (Flomax) 0.4 mg PO DAILY [facility] Last Admin: 07/24/16 08:50 Dose: 0.4 mg Tramadol HCl (Ultram) 50 mg PO BID PRN PRN Reason: Pain, moderate (4-7) Last Admin: 07/22/16 08:55 Dose: 50 mg Zolpidem Tartrate (Ambien) 5 mg PO HS PRN PRN Reason: Sleep Last Admin: 07/24/16 21:20 Dose: 5 mg - Labs Labs: 07/23/16 07:47 07/23/16 07:47 Assessment and Plan (1) Cellulitis, leg Status: Acute (2) Essential hypertension Status: Chronic
--- NOTE | 2016-07-25 06:41 | CP.PCM.PN ---
Subjective - Date & Time of Evaluation Date of Evaluation: 07/25/16 Time of Evaluation: 14:07 - Subjective Subjective: 75 year old male with PMHx of lung cancer & HTN presenting 14 days s/p Right 4th digit Amputation was see at bedside this morning by Dr. Treadwell. Patient states that yesterday he wore his surgical shoe the entire time he was walking, and denies any pain. He states that he is leaving TCU today and going home. Patient in no acute distress, AAO x3. Denies any n/v/f/c/sob/cp. Objective - Vital Signs/Intake and Output Vital Signs (last 24 hours): Temp Pulse Resp BP Pulse Ox 98.1 F 89 20 108/85 97 07/24/16 21:59 07/24/16 21:59 07/24/16 21:59 07/24/16 21:59 07/24/16 21:59 - Medications Medications: Current Medications Amlodipine Besylate (Norvasc) 5 mg PO DAILY [facility] Last Admin: 07/24/16 08:50 Dose: 5 mg Enalapril Maleate (Vasotec) 20 mg PO DAILY [facility] Last Admin: 07/24/16 08:51 Dose: 20 mg Enoxaparin Sodium (Lovenox) 40 mg SC DAILY [facility] PRN Reason: Protocol Last Admin: 07/24/16 08:51 Dose: 40 mg Vancomycin HCl 500 mg/ Sodium (Chloride) 100 mls @ 100 mls/hr IVPB Q12@0500, 1700 [facility] Last Admin: 07/25/16 05:43 Dose: 100 mls/hr Ertapenem 1 gm/ Sodium (Chloride) 100 mls @ 100 mls/hr IVPB DAILY@1700 [facility] Last Admin: 07/24/16 19:16 Dose: 100 mls/hr Lactobacillus Acidophilus (Bacid Acidophilus) 1 cap PO BID [facility] Last Admin: 07/24/16 17:44 Dose: 1 cap Ondansetron HCl (Zofran Odt) 8 mg PO Q8 PRN PRN Reason: nausea Pantoprazole Sodium (Protonix Ec Tab) 40 mg PO DAILY [facility] Last Admin: 07/24/16 08:50 Dose: 40 mg Tamsulosin HCl (Flomax) 0.4 mg PO DAILY [facility] Last Admin: 07/24/16 08:50 Dose: 0.4 mg Tramadol HCl (Ultram) 50 mg PO BID PRN PRN Reason: Pain, moderate (4-7) Last Admin: 07/22/16 08:55 Dose: 50 mg Zolpidem Tartrate (Ambien) 5 mg PO HS PRN PRN Reason: Sleep Last Admin: 07/24/16 21:20 Dose: 5 mg - Labs Labs: 07/23/16 07:47 07/23/16 07:47 - Constitutional Appears: Well, Non-toxic, No Acute Distress - Extremities Exam Additional comments: Right lower extremity focused exam: VASC: DP and PT pulses palpable 2/4. CFT < 3 seconds to remaining digits. Skin temperature warm to warm from proximal to distal. DERM: 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 site noted with sutures intact. No malodor, no erythema, no fluctuance, no purulence, no drainage noted. NEURO: Protective sensation diminished. ORTHO: Partial amputation noted to right 4th digit. - Neurological Exam Neurological Exam: Alert, Awake, Oriented x3 - Psychiatric Exam Psychiatric exam: Normal Affect, Normal Mood Assessment and Plan - Assessment and Plan (Free Text) Assessment: 75 year old male patient 14 days s/p 4th digit partial amputation, secondary to acute OM of 4th digit. Plan: Patient examined and evaluated Discussed attending, Dr. Treadwell Patient seen by Dr. Treadwell Chart, labs, and vitals reviewed. Amputation site was irrigated with copious amounts of normal sterile saline, sutures removed Amputation site dressed with sterile gauze, ABD, kerlix. Partial weight bearing to right foot, with surgical shoe Stressed importance of wearing a surgical shoe Follow up with Thursday in Dr. Oneal office Patient to go home on oral abx per ID- Zyvox
[2016-07-25 08:11] VITALS: BP 130/87; PULSE 80
[2016-07-25] MEDS: Enoxaparin 40 mg Syringe SC SCH (09:35)
[2016-07-25] MEDS: Pantoprazole 40 mg EC Tab PO SCH (09:35)
[2016-07-25] MEDS: Lactobacillus Acidophilus 500 MU Cap PO SCH (09:38)
--- NOTE | 2016-07-25 19:18 | CP.PCM.DIS ---
Provider - Provider Date of Admission: 07/14/16 16:53 Attending physician: Jeannie Szymanski MD Time Spent in preparation of Discharge (in minutes): 25 Diagnosis - Discharge Diagnosis (1) Cellulitis, leg Status: Acute (2) Essential hypertension Status: Chronic Hospital Course - Lab Results Lab Results: Micro Results 07/23/16 12:18 Blood Blood Culture - Preliminary NO GROWTH AFTER 48 HOURS 07/24/16 04:30 Blood Blood Culture - Preliminary NO GROWTH AFTER 24 HOURS Most Recent Lab Values WBC 4.5 K/uL (4.8-10.8) L 07/23/16 07:47 RBC 4.73 Mil/uL (4.40-5.90) 07/23/16 07:47 Hgb 13.7 g/dL (12.0-18.0) 07/23/16 07:47 Hct 41.3 % (35.0-51.0) 07/23/16 07:47 MCV 87.3 fl (80.0-94.0) 07/23/16 07:47 MCH 28.9 pg (27.0-31.0) 07/23/16 07:47 MCHC 33.1 g/dL (33.0-37.0) 07/23/16 07:47 RDW 13.9 % (11.5-14.5) 07/23/16 07:47 Plt Count 151 K/uL (130-400) D 07/23/16 07:47 MPV 8.3 fl (7.2-11.7) 07/23/16 07:47 Neut % (Auto) 63.8 % (50.0-75.0) 07/23/16 07:47 Lymph % (Auto) 21.8 % (20.0-40.0) 07/23/16 07:47 [place] % (Auto) 11.1 % (0.0-10.0) H 07/23/16 07:47 Eos % (Auto) 2.6 % (0.0-4.0) 07/23/16 07:47 Baso % (Auto) 0.7 % (0.0-2.0) 07/23/16 07:47 Neut # 2.9 K/uL (1.8-7.0) 07/23/16 07:47 Lymph # 1.0 K/uL (1.0-4.3) 07/23/16 07:47 [place] # 0.5 K/uL (0.0-0.8) 07/23/16 07:47 Eos # 0.1 K/uL (0.0-0.7) 07/23/16 07:47 Baso # 0.0 K/uL (0.0-0.2) 07/23/16 07:47 Sodium 138 mmol/l (132-148) 07/23/16 07:47 Potassium 4.0 MMOL/L (3.6-5.0) 07/23/16 07:47 Chloride 100 mmol/L (98-107) 07/23/16 07:47 Carbon Dioxide 26 mmol/L (22-30) 07/23/16 07:47 Anion Gap 16 (10-20) 07/23/16 07:47 BUN 22 mg/dl (9-20) H 07/23/16 07:47 Creatinine 1.0 mg/dL (0.8-1.5) 07/23/16 07:47 Est GFR ( Amer) > 60 07/23/16 07:47 Est GFR (Non-Af Amer) > 60 07/23/16 07:47 Random Glucose 84 mg/dL (75-110) 07/23/16 07:47 Calcium 8.8 mg/dL (8.4-10.2) 07/23/16 07:47 Total Bilirubin 0.7 mg/dl (0.2-1.3) 07/23/16 07:47 AST 30 U/L (17-59) 07/23/16 07:47 ALT 44 U/L (21-72) 07/23/16 07:47 Alkaline Phosphatase 69 U/L (38-126) 07/23/16 07:47 Total Protein 6.1 G/DL (6.3-8.2) L 07/23/16 07:47 Albumin 3.3 g/dL (3.5-5.0) L 07/23/16 07:47 Globulin 2.8 gm/dL (2.2-3.9) 07/23/16 07:47 Albumin/Globulin Ratio 1.2 (1.0-2.1) 07/23/16 07:47 Vancomycin Trough 5.8 ug/mL (5.0-10.0) 07/22/16 16:45 C. difficile Ag & Toxin Negative (NEGATIVE) 07/21/16 12:18 Discharge Exam - Head Exam Head Exam: ATRAUMATIC, NORMAL INSPECTION, NORMOCEPHALIC Discharge Plan - Follow Up Plan Condition: GOOD Disposition: HOME/ ROUTINE Instructions: Tramadol (By mouth), Linezolid (By mouth), Cellulitis (DC), Fall Prevention (DC) Additional Instructions: discharge patient home today, followup with Dr. Szymanski in one week. call for appointment. [phone] followup with podiatry MD Dr. Wagner Treadwell on Friday, July 29, 2016, at his office [phone]
== END 2016-07-25 12:30 | disposition home or self-care (01) | DRG 560 ==
LOC: H.TCU 16:53
PROVIDERS: ADMIT Internal Medicine; ATTEND Internal Medicine
PROC: F07L0FZ Range of Motion and Joint Mobility Treatment of Musculoskeletal System - Lower Back / Lower Extremity using Assistive, Adaptive, Supportive or Protective Equipment (ICD-10-PCS; principal; 2016-07-14)
PROC: F08Z4ZZ Home Management Treatment (ICD-10-PCS; 2016-07-14)
PROC: F07Z9FZ Gait Training/Functional Ambulation Treatment using Assistive, Adaptive, Supportive or Protective Equipment (ICD-10-PCS; 2016-07-14)
PROC: F07L6FZ Therapeutic Exercise Treatment of Musculoskeletal System - Lower Back / Lower Extremity using Assistive, Adaptive, Supportive or Protective Equipment (ICD-10-PCS; 2016-07-14)
DX: Z47.81 Encounter for orthopedic aftercare following surgical amputation (principal); L03.115 Cellulitis of right lower limb; M86.171 Other acute osteomyelitis, right ankle and foot; I10 Essential (primary) hypertension; Z89.421 Acquired absence of other right toe(s); M17.12 Unilateral primary osteoarthritis, left knee; B95.61 Methicillin susceptible Staphylococcus aureus infection as the cause of diseases classified elsewhere; Z85.118 Personal history of other malignant neoplasm of bronchus and lung

== ENCOUNTER 2016-07-16 11:04 | Day surgery (SDC) | payer MEDICARE ==
[2016-07-16 11:21] VITALS: BMI 36.3
[2016-07-16 13:12] VITALS: RESP 18; O2SAT 95
[2016-07-16] MEDS ORDERED: Lidocaine 1% Inj (20ml) ONE (13:23)
[2016-07-16 14:14] VITALS: BP 99/64; PULSE 94; TEMP 98
--- NOTE | 2016-07-17 11:46 | VASCULAR ---
Procedure: Ultrasound and fluoroscopically placed Right upper extremity PICC. Clinical indication: Long-term IV antibiotics. Technique: The relative risks and indications of the procedure were explained to the patient and written informed consent obtained. The patient was placed supine on the angiographic table and the right arm prepped and draped in the usual sterile fashion. A tourniquet was applied to the right axilla. 1% lidocaine was used to anesthetize the skin and soft tissues at the puncture site above the elbow. The right basilic vein was punctured under direct ultrasound guidance with a micropuncture set. A permanent image was stored. A 0.018 guidewire was advanced centrally and used to measure the length to the SVC/RA junction. A 4 [place] single-lumen PICC, size 42 cm, was advanced to the SVC/RA junction under fluoroscopic guidance. The catheter was flushed and secured. The patient tolerated the procedure well. Postprocedure chest image was obtained to ensure location of the catheter tip at the SVC right atrial junction. Impression: Ultrasound and fluoroscopically placed right upper extremity PICC. A 4 [place] single-lumen PICC, size 42 cm was advanced to the SVC/RA junction. PICC ready for use.
== END 2016-07-16 14:30 ==
LOC: H.OPSURG 11:04
PROVIDERS: ATTEND Internal Medicine
DX: L03.115 Cellulitis of right lower limb (principal)
CPT/HCPCS: 36569; 76937; 77001; A4310; C1751

== ENCOUNTER 2016-10-27 09:32 | Inpatient (IN) | payer MEDICARE ==
[2016-10-27 09:51] VITALS: BMI 33.6
--- NOTE | 2016-10-27 10:56 | CP.PCM.HP ---
History of Present Illness - History of Present Illness History of Present Illness: 76 yo male with histroy of HTN, [place] Cell Ca and Traumatic Arthritis of the left knee came in for left TKR after failing conservative management. Patient had history of trauma on the left knee about 20 yrs ago and has been having pain and clicking sensation since then. Present on Admission - Present on Admission Any Indicators Present on Admission: No History of DVT/PE: No History of Uncontrolled Diabetes: No Urinary Catheter: No Decubitus Ulcer Present: No Review of Systems - Review of Systems All systems: reviewed and no additional remarkable complaints except (aside from those mentioned above, 12 point system review were negative by me) Past Patient History - Infectious Disease Hx of Infectious Diseases: None - Tetanus Immunizations Tetanus Immunization: Unknown - Past Medical History & Family History Past Medical History?: Yes Past Family History: Reviewed and not pertinent - Past Social History Smoking Status: Former Smoker Alcohol: Occasional Drugs: Denies - CARDIAC Hx Hypertension: Yes - PULMONARY Hx Respiratory Disorders: Yes Hx Lung Cancer: Yes (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) Other/Comment: spots on both luns -on immunotherapy q 3 weeks since Apr, 2016 - NEUROLOGICAL Hx Neurological Disorder: No - HEENT Hx HEENT Problems: No Hx Deafness: Yes - RENAL Hx Chronic Kidney Disease: No - ENDOCRINE/METABOLIC Hx Endocrine Disorders: No - HEMATOLOGICAL/ONCOLOGICAL Hx Blood Disorders: No Hx Blood Transfusions: No Hx Cancer: 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) Hx Chemotherapy: Yes Hx Metastesis: Yes (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) - INTEGUMENTARY Hx Dermatological Problems: Yes Other/Comment: [place] Cell Ca - MUSCULOSKELETAL/RHEUMATOLOGICAL Hx Musculoskeletal Disorders: Yes Hx Arthritis: Yes Hx Falls: Yes Hx Osteomyelitis: Yes (right 4th toe amputated 4 months ago) - GASTROINTESTINAL Hx Gastrointestinal Disorders: Yes Other/Comment: HEARTBURN - GENITOURINARY/GYNECOLOGICAL Hx Genitourinary Disorders: No - PSYCHIATRIC Hx Emotional Abuse: No Hx Physical Abuse: No - SURGICAL HISTORY Hx Surgeries: Yes Other/Comment: 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, scalp surgery for [place] Cell Ca, amputation of right 4th toe (osteomyelitis) - ANESTHESIA Hx Anesthesia: Yes Hx Anesthesia Reactions: No Hx Malignant Hyperthermia: No Has any member of the family had a problem w/ anesthesia?: No Meds Allergies/Adverse Reactions: Allergies Allergy/AdvReac Type Severity Reaction Status Date / Time No Known Allergies Allergy Verified 07/14/16 16:52 Physical Exam - Constitutional Appears: No Acute Distress - Head Exam Head Exam: ATRAUMATIC (surgical scar on right occipital region of the scalp) - Eye Exam Eye Exam: absent: Scleral icterus - ENT Exam ENT Exam: Mucous Membranes Moist - Neck Exam Neck exam: Negative for: Meningismus - Respiratory Exam Respiratory Exam: absent: Rhonchi, Wheezes, Respiratory Distress - Cardiovascular Exam Cardiovascular Exam: REGULAR RHYTHM, +S1, +S2 - GI/Abdominal Exam GI & Abdominal Exam: Soft. absent: Tenderness - Rectal Exam Rectal Exam: Deferred - Extremities Exam Extremities exam: Negative for: pedal edema - Neurological Exam Neurological exam: Alert, Oriented x3 - Psychiatric Exam Psychiatric exam: Normal Affect - Skin Skin Exam: Dry, Intact Results - Vital Signs Recent Vital Signs: Last Vital Signs Temp 98.2 F 10/27/16 10:31 Pulse 72 10/27/16 10:31 Resp 18 10/27/16 10:31 BP 136/86 10/27/16 10:31 Pulse Ox 96 10/27/16 10:31 - Labs Labs: Laboratory Results - last 24 hr 10/27/16 10:00 BBK History Checked No verified bt Assessment & Plan (1) Traumatic arthritis of knee Status: Chronic Comment: for left TKR. keep NPO (2) HTN (hypertension) Status: Chronic Comment: BP stable in spite of not taking medication today. monitor VS (3) [place] cell carcinoma Status: Chronic Comment: on immunotherapy q 3 weeks
[2016-10-27] MEDS ORDERED: Propofol 10 mg/ml Inj (20 ML) ONE ×2 (12:16→15:58)
[2016-10-27] MEDS ORDERED: Midazolam 2 MG/2 ML VIAL ONE (12:16)
[2016-10-27] MEDS ORDERED: Rocuronium 10 mg/ml (5 ml) ONE (12:17)
[2016-10-27] MEDS ORDERED: Succinylcholine 200 mg/10 ml Inj IV ONE (12:18)
[2016-10-27] MEDS ORDERED: Lidocaine 1% Inj (20ml) ONE (12:19)
[2016-10-27] MEDS ORDERED: Bupivacaine 0.5% Inj(30mL) ONE (12:20)
[2016-10-27] MEDS ORDERED: Absorbable Gelatin Sponge Size 100 ONE (12:20)
[2016-10-27] MEDS ORDERED: Thrombin Topical 5,000 IU Spray Kit ONE (12:20)
[2016-10-27] MEDS ORDERED: ePHEDrine 50 mg/ml Inj ONE (13:37)
[2016-10-27] MEDS ORDERED: Lactated Ringer's 1,000 ML IV ONE (14:30)
[2016-10-27] MEDS ORDERED: Desflurane Inhalation Anesthetic Liq (240 ml) ONE (15:01)
--- NOTE | 2016-10-27 15:35 | PCM.ANESB3 ---
Femoral Nerve Block - Femoral Nerve Block Date of Procedure: 10/27/16 Procedure Performed: Femoral Nerve Block Left - Procedure Femoral Nerve Block: The procedure was explained to the patient that it is for the post-operative pain management. Consent was obtained after a thorough discussion with the patient regarding the benefits and possible complications of local anesthetic block of the femoral nerve at the inguinal crease area. The patient was brought to the operating room and standard monitors were applied. Time-out was held with the circulating nurse to confirm the correct surgery and the appropriate block. After applying oxygen by nasal cannula and administering IV Sedation, patient was placed in supine position with fully extended lower extremities and the ____Left____ groin exposed. The femoral artery was then carefully palpated. The ultrasound transducer was then applied to this area in the transverse plane and the femoral nerve was visualized lateral to the femoral artery and underneath the fascia iliaca. After thorough identification, the inguinal crease area was prepped with Betadine solution three times and 1 % Lidocaine was injected subcutaneously for topical anesthesia. At this point, a #22 gauge Stimuplex 4-inch needle was inserted immediately lateral to the femoral artery pulse at the inguinal crease and advanced perpendicularly. The needle was inserted to the ultrasound transducer in-plane towards the femoral nerve in a [id number] direction. Needle advancement was performed carefully under direct ultrasound visualization. Nerve stimulator was used and twitch of the quadriceps muscle was obtained at current of __0.3___ MA. After negative aspiration, __5___cc of __0.5%___% Ropivacaine was injected and this was followed with ___20___ cc of ____0.5___ % ____ Ropivacaine . Under ultrasound guidance the local anesthetics were observed spreading below fascia iliaca and around the femoral nerve. The needle was removed intact and sterile dressing was applied. The patient had stable vital signs, was conscious and in no apparent distress. The patient tolerated the femoral nerve block well with stable vital signs and was prepared for subsequent surgery.
--- NOTE | 2016-10-27 17:19 | PCM.SURG1 ---
Surgeon's Initial Post Op Note - Surgeon's Notes Surgeon: Bean Mason Tender: CAROLYN Everett Type of Anesthesia: General Endo, Spinal Anesthesia Administered By: DR Hollingsworth Pre-Operative Diagnosis: Tricomparmental O/A L Knee Operative Findings: Severe tricomparmtnetal O/A L knee. tricomparmental synovitis. posterior capsular contracture. lateral ,patella retinacular contracture Post-Operative Diagnosis: as above Operation Performed: L TKR. anterior and posterior synovectomy. posterior capsular release4. lateral patella releas. computer navigation Specimen/Specimens Removed: joanna synovium keon Estimated Blood Loss: EBL {In ML}: 70 Blood Products Given: N/A Drains Used: No Drains Post-Op Condition: Good Date of Surgery/Procedure: 10/27/16 Time of Surgery/Procedure: 15:45 (time in room 2:30)
[2016-10-27] MEDS ORDERED: Neostigmine Methylsulfate 2 MG/2 ML ML IV ONE (17:45)
[2016-10-27] MEDS ORDERED: Bacitracin OINT 15GM TOP ONE (18:00)
[2016-10-27] MEDS: HYDROmorphone 0.5 mg/0.5 ml ISec IVP PRN ×2 (18:05→18:20)
[2016-10-27] MEDS ORDERED: HYDROmorphone 0.5 mg/0.5 ml ISec ONE (18:10)
[2016-10-27] MEDS ORDERED: DiphenhydrAMINE 50 mg/ml Inj IVP PRN (18:15)
[2016-10-27] MEDS: Alum-Mag Hydrox-Simethicone Susp (30 mL) PO PRN (23:58)
[2016-10-28] MEDS: ceFAZolin 1 GM in Sodium Chloride 0.9% 100 ML IVPB SCH ×2 (01:13→08:18)
[2016-10-28] MEDS: Sodium Chloride 0.9% 1,000 ML IV SCH ×3 (04:22→16:26)
[2016-10-28 07:27] LABS: BLOOD UREA NITROGEN 27 mg/dl (9-20); CALCIUM 8.5 mg/dL (8.4-10.2); CARBON DIOXIDE 30 mmol/L (22-30); CHLORIDE 102 mmol/L (98-107); GFR AFRICAN-AMERICAN > 60; GLUCOSE,RANDOM 104 mg/dL (75-110); POTASSIUM 4.2 MMOL/L (3.6-5.0); SODIUM 138 mmol/l (132-148)
[2016-10-28 07:41] LABS: BASO % 0.2 % (0.0-2.0); HEMATOCRIT 37.8 % (35.0-51.0); LYMPH % 11.9 % (20.0-40.0); MEAN CELL VOLUME 87.3 fl (80.0-94.0); MEAN CORPUSCULAR HEMOGLOBIN 28.6 pg (27.0-31.0); MEAN CORPUSCULAR HGB CONC 32.8 g/dL (33.0-37.0); MONO # 0.8 K/uL (0.0-0.8); MONO % 9.3 % (0.0-10.0); NEUT # 6.6 K/uL (1.8-7.0); NEUT % 78.6 % (50.0-75.0); NRBC % 0.1 % (0.0-0.0); RED CELL DISTRIBUTION WIDTH 14.3 % (11.5-14.5); WHITE BLOOD COUNT 8.4 K/uL (4.8-10.8)
[2016-10-28] MEDS: Pantoprazole 40 mg EC Tab PO SCH (08:19)
[2016-10-28 08:40] LABS: RBC URINE < 1 /hpf (0-3); URINE BILIRUBIN NEGATIVE (NEGATIVE); URINE BLOOD NEGATIVE (NEGATIVE); URINE COLOR YELLOW (YELLOW); URINE GLUCOSE (UA) NEG (Normal); URINE KETONE NEGATIVE (NEGATIVE); URINE LEUKOCYTE ESTERASE NEG Leu/uL (Negative); URINE PROTEIN NEGATIVE (NEGATIVE); URINE UROBILINOGEN 0.2-1.0 mg/dL (0.2-1.0); WBC URINE < 1 /hpf (0-5)
[2016-10-28] MEDS: Alum-Mag Hydrox-Simethicone Susp (30 mL) PO PRN (10:24)
--- NOTE | 2016-10-28 11:09 | RAD ---
PROCEDURE: Left Knee Radiographs. HISTORY: Pain. COMPARISON: None. FINDINGS: BONES: Status post left knee arthroplasty. No acute osseous fracture. Prosthesis grossly intact. JOINTS: As above JOINT EFFUSION: Surgical drainage catheter noted OTHER FINDINGS: None. IMPRESSION: Left knee arthroplasty.
--- NOTE | 2016-10-28 17:30 | CP.PCM.PN ---
Subjective - Date & Time of Evaluation Date of Evaluation: 10/28/16 Time of Evaluation: 14:45 - Subjective Subjective: Patient seen and examined. Pain on left knee tolerable. Objective - Vital Signs/Intake and Output Vital Signs (last 24 hours): Temp Pulse Resp BP Pulse Ox 99 F 82 20 148/73 99 10/28/16 16:36 10/28/16 16:36 10/28/16 16:36 10/28/16 16:36 10/28/16 16:36 Intake and Output: 10/28/16 10/28/16 06:59 18:59 Output Total 50 Balance -50 - Medications Medications: Current Medications Al Hydrox/Mg Hydrox/Simethicone (Maalox Plus 30 Ml) 30 ml PO Q6 PRN PRN Reason: Indigestion / Heartburn Last Admin: 10/28/16 10:24 Dose: 30 ml Amlodipine Besylate (Norvasc) 5 mg PO DAILY [facility] Last Admin: 10/28/16 08:18 Dose: 5 mg Diphenhydramine HCl (Benadryl) 25 mg IVP Q6 PRN PRN Reason: Itching / Pruritus Docusate Sodium (Colace) 100 mg PO BID [facility] Last Admin: 10/28/16 16:23 Dose: Not Given Enalapril Maleate (Vasotec) 20 mg PO DAILY [facility] Last Admin: 10/28/16 08:19 Dose: 20 mg Hydrochlorothiazide (Hydrodiuril) 25 mg PO DAILY [facility] Last Admin: 10/28/16 08:18 Dose: 25 mg Hydromorphone HCl (Dilaudid 0.2 Mg/Ml [employer]) 0 mg IV PRN PRN; Protocol PRN Reason: Pain, severe (8-10) Last Admin: 10/28/16 05:05 Dose: 6 mg Sodium Chloride (Sodium Chloride 0.9%) 1,000 mls @ 100 mls/hr IV .Q10H [facility] Last Admin: 10/28/16 16:26 Dose: Not Given Ondansetron HCl (Zofran Inj) 4 mg IVP Q8 PRN PRN Reason: Nausea/Vomiting Pantoprazole Sodium (Protonix Ec Tab) 40 mg PO DAILY [facility] Last Admin: 10/28/16 08:19 Dose: 40 mg Tramadol HCl (Ultram) 50 mg PO BID PRN PRN Reason: Pain, moderate (4-7) - Labs Labs: 10/28/16 06:50 10/28/16 06:50 - Constitutional Appears: No Acute Distress - Head Exam Head Exam: ATRAUMATIC - Eye Exam Eye Exam: absent: Scleral icterus - ENT Exam ENT Exam: Mucous Membranes Moist - Neck Exam Neck Exam: absent: Meningismus - Respiratory Exam Respiratory Exam: absent: Rhonchi, Wheezes, Respiratory Distress - Cardiovascular Exam Cardiovascular Exam: REGULAR RHYTHM, +S1, +S2 - GI/Abdominal Exam GI & Abdominal Exam: Soft. 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 Patient had history of trauma on the left knee about 20 yrs ago and has been having pain and clicking sensation since then. (1) Traumatic arthritis of knee Post left TKR, day # 1 continue pain management refer to PT/OT possible transfer to TCU (2) HTN (hypertension) BP stable continue Vasotec, Norvasc and HCTZ (3) Raúl cell carcinoma patient is schedule for immunotherapy this coming but oncologist, Dr Lundberg decided to push it back a week later if patient is still in the hospital he advised that his office be called to set up an appt. and arrangement for moss picker phone nos. [phone]
[2016-10-28] MEDS: Oxycodone/Acetaminophen 5/325 mg Tab PO PRN (19:41)
[2016-10-29] MEDS: Oxycodone/Acetaminophen 5/325 mg Tab PO PRN ×2 (01:05→08:32)
[2016-10-29 08:11] VITALS: BP 155/76; PULSE 73; RESP 20; TEMP 98.2; O2SAT 95
[2016-10-29] MEDS: Pantoprazole 40 mg EC Tab PO SCH (08:34)
--- NOTE | 2016-10-29 09:55 | CP.PCM.PN ---
Objective - Vital Signs/Intake and Output Vital Signs (last 24 hours): Temp Pulse Resp BP Pulse Ox 98.2 F 73 20 155/76 H 95 10/29/16 08:11 10/29/16 08:11 10/29/16 08:11 10/29/16 08:11 10/29/16 08:11 - Medications Medications: Current Medications Al Hydrox/Mg Hydrox/Simethicone (Maalox Plus 30 Ml) 30 ml PO Q6 PRN PRN Reason: Indigestion / Heartburn Last Admin: 10/28/16 10:24 Dose: 30 ml Amlodipine Besylate (Norvasc) 5 mg PO DAILY [facility] Last Admin: 10/29/16 08:34 Dose: 5 mg Diphenhydramine HCl (Benadryl) 25 mg IVP Q6 PRN PRN Reason: Itching / Pruritus Docusate Sodium (Colace) 100 mg PO BID [facility] Last Admin: 10/29/16 08:34 Dose: 100 mg Enalapril Maleate (Vasotec) 20 mg PO DAILY [facility] Last Admin: 10/29/16 08:34 Dose: 20 mg Hydrochlorothiazide (Hydrodiuril) 25 mg PO DAILY [facility] Last Admin: 10/29/16 08:32 Dose: 25 mg Sodium Chloride (Sodium Chloride 0.9%) 1,000 mls @ 100 mls/hr IV .Q10H [facility] Last Admin: 10/28/16 16:26 Dose: Not Given Ondansetron HCl (Zofran Inj) 4 mg IVP Q8 PRN PRN Reason: Nausea/Vomiting Oxycodone/Acetaminophen (Percocet 5/325 Mg Tab) 1 tab PO Q4 PRN PRN Reason: Pain, moderate (4-7) Stop: 10/31/16 18:09 Last Admin: 10/29/16 08:32 Dose: 1 tab Pantoprazole Sodium (Protonix Ec Tab) 40 mg PO DAILY [facility] Last Admin: 10/29/16 08:34 Dose: 40 mg Tramadol HCl (Ultram) 50 mg PO BID PRN PRN Reason: Pain, moderate (4-7) - Labs Labs: 10/28/16 06:50 10/28/16 06:50
[2016-10-29] MEDS: Sodium Chloride 0.9% 1,000 ML IV SCH (11:10)
--- NOTE | 2016-10-29 12:16 | CP.PCM.DIS ---
Provider - Provider Date of Admission: 10/27/16 18:38 Attending physician: Eulogio George MD Primary care physician: NO FAMILY PROVIDER Consults: ortho consult PT consult Time Spent in preparation of Discharge (in minutes): 20 Hospital Course - Lab Results Lab Results: Most Recent Lab Values WBC 8.4 K/uL (4.8-10.8) D 10/28/16 06:50 RBC 4.33 Mil/uL (4.40-5.90) L 10/28/16 06:50 Hgb 12.4 g/dL (12.0-18.0) 10/28/16 06:50 Hct 37.8 % (35.0-51.0) 10/28/16 06:50 MCV 87.3 fl (80.0-94.0) 10/28/16 06:50 MCH 28.6 pg (27.0-31.0) 10/28/16 06:50 MCHC 32.8 g/dL (33.0-37.0) L 10/28/16 06:50 RDW 14.3 % (11.5-14.5) 10/28/16 06:50 Plt Count 195 K/uL (130-400) 10/28/16 06:50 MPV 8.0 fl (7.2-11.7) 10/28/16 06:50 Neut % (Auto) 78.6 % (50.0-75.0) H 10/28/16 06:50 Lymph % (Auto) 11.9 % (20.0-40.0) L 10/28/16 06:50 [place] % (Auto) 9.3 % (0.0-10.0) 10/28/16 06:50 Eos % (Auto) 0.0 % (0.0-4.0) 10/28/16 06:50 Baso % (Auto) 0.2 % (0.0-2.0) 10/28/16 06:50 Neut # 6.6 K/uL (1.8-7.0) 10/28/16 06:50 Lymph # 1.0 K/uL (1.0-4.3) 10/28/16 06:50 Storey # 0.8 K/uL (0.0-0.8) 10/28/16 06:50 Eos # 0.0 K/uL (0.0-0.7) 10/28/16 06:50 Baso # 0.0 K/uL (0.0-0.2) 10/28/16 06:50 Sodium 138 mmol/l (132-148) 10/28/16 06:50 Potassium 4.2 MMOL/L (3.6-5.0) 10/28/16 06:50 Chloride 102 mmol/L (98-107) 10/28/16 06:50 Carbon Dioxide 30 mmol/L (22-30) 10/28/16 06:50 Anion Gap 10 (10-20) 10/28/16 06:50 BUN 27 mg/dl (9-20) H 10/28/16 06:50 Creatinine 1.1 mg/dL (0.8-1.5) 10/28/16 06:50 Est GFR ( Amer) > 60 10/28/16 06:50 Est GFR (Non-Af Amer) > 60 10/28/16 06:50 Random Glucose 104 mg/dL (75-110) 10/28/16 06:50 Calcium 8.5 mg/dL (8.4-10.2) 10/28/16 06:50 Urine Color Yellow (YELLOW) 10/28/16 08:31 Urine Clarity Clear (Clear) 10/28/16 08:31 Urine pH 5.0 (5.0-8.0) 10/28/16 08:31 Ur Specific [place] 1.019 (1.003-1.030) 10/28/16 08:31 Urine Protein Negative mg/dL (NEGATIVE) 10/28/16 08:31 Urine Glucose (UA) Neg mg/dL (Normal) 10/28/16 08:31 Urine Ketones Negative mg/dL (NEGATIVE) 10/28/16 08:31 Urine Blood Negative (NEGATIVE) 10/28/16 08:31 Urine Nitrate Negative (NEGATIVE) 10/28/16 08:31 Urine Bilirubin Negative (NEGATIVE) 10/28/16 08:31 Urine Urobilinogen 0.2-1.0 mg/dL (0.2-1.0) 10/28/16 08:31 Ur Leukocyte Esterase Neg Louann/uL (Negative) 10/28/16 08:31 Urine RBC (Auto) < 1 /hpf (0-3) 10/28/16 08:31 Urine Microscopic WBC < 1 /hpf (0-5) 10/28/16 08:31 Ur Squamous Epith Cells 1 /hpf (0-5) 10/28/16 08:31 Blood Type O POSITIVE 10/27/16 10:00 Blood Type Confirm O POSITIVE 10/27/16 09:50 Antibody Screen Negative 10/27/16 10:00 BBK History Checked No verified bt 10/27/16 10:00 - Hospital Course Hospital Course: 76 yo male with histroy of HTN, [place] Cell Ca and Traumatic Arthritis of the left knee came in for left TKR after failing conservative management. Patient had history of trauma on the left knee about 20 yrs ago and has been having pain and clicking sensation since then. He underwent successful left TKR and doing well post op Will transfer patient to TCU for physical therapy (1) Traumatic arthritis of knee Post left TKR, day # 2 continue pain management PT/OT consult appreciated Will d/c to TCu Continue lovenox for DVt prophylaxis Ortho following (2) HTN (hypertension) BP stable continue Vasotec, Norvasc and HCTZ (3) [place] cell carcinoma patient is scheduled for immunotherapy this coming but oncologist, Dr Lundberg decided to push it back a week later if patient is still in the hospital he advised that his office be called to set up an appt. and arrangement for fruit picker machine operator phone nos. [phone] 4. DVt prophylaxis lovonox Discharge Exam - Head Exam Head Exam: ATRAUMATIC, NORMOCEPHALIC - Eye Exam Eye Exam: EOMI, Normal appearance, PERRL Pupil Exam: NORMAL ACCOMODATION, PERRL - ENT Exam ENT Exam: Mucous Membranes Moist, Normal Exam - Neck Exam Neck exam: Full Rom, Normal Inspection - Respiratory Exam Respiratory Exam: Clear to PA & Lateral, NORMAL BREATHING PATTERN. absent: Rales, Rhonchi, Wheezes, Respiratory Distress - Cardiovascular Exam Cardiovascular Exam: REGULAR RHYTHM, RRR, +S1, +S2. absent: JVD - GI/Abdominal Exam GI & Abdominal Exam: Hyperactive Bowel Sounds, Soft. absent: Distended, Guarding, Rebound, Tenderness - Rectal Exam Rectal Exam: Deferred - Extremities Exam Extremities exam: pedal edema (1 + to LLE) Additional comments: Left knee surgical incision with qcquacell dressing in place edema 1 + - Back Exam Back exam: NORMAL INSPECTION - Neurological Exam Neurological exam: Alert, CN II-XII Intact, Oriented x3, Reflexes Normal - Psychiatric Exam Psychiatric exam: Normal Affect, Normal Mood - Skin Skin Exam: Dry, Intact, Normal Color, Warm Discharge Plan - Follow Up Plan Condition: GOOD Disposition: TRANSF TO SNF Patient education suggested?: Yes Instructions: Knee Replacement (DC) Referrals: Mina Del Angel III, MD [Staff Provider] - FAMILY PROVIDER,NO [Primary Care Provider] -
--- NOTE | 2016-11-04 20:55 | PCM.OP ---
Operative Report - Operative Report Date of Surgery/Procedure: 10/27/16 Time of Surgery/Procedure: 15:45 (time in room 14:30/anaesthesia indcution time 14:30) Surgeon: Bean Sustainability Manager: CAROLYN Yap Anesthesia/Sedation: Genral/regional anaesthesia Pre-Operative Diagnosis: Primary O/A L knee Post-Operative Diagnosis: Primary O/A L knee. synopvits- anterior and posterior. posterior capsular contracture. lateral patella contracture Indication for Surgery: severe pain and rstricted ROM Operative Findings: severe tricompartmental O/A L knee. synovitis anterior and posterior. posterior capsular contracture. lateral patella contracture. operative procedure: After the satisfactory induction of general and regional anesthesia, after having obtained informed consent, after having identified side site and procedure in a critical pause/timeout, the patient identified as Sunday Leonardo in the supine position with all bony prominences well padded, the left lower extremity is prepped and free draped in the usual fashion for knee replacement arthroplasty. After exsanguinating the limb using a 6 inch Esmarch bandage the tourniquet which had being applied is inflated to 350 mmHg. A 6 inch straight midline approach is made to the knee. Medial arthrotomy is accomplshed; dissection was carried posterior medially to the direct head of the semimembranosus tendon. Medial and lateral meniscectomies or accomplished; anterior and posterior cruciate ligaments were excised. The tibia was dislocated anteriorly and the initial osteotomy of the arthroplasty was accomplished on the tibial side.. Guidance to rotation are the lateral aspect of the tibial condyle/and the medial one third of the tibial tuberosity. Computer navigation is employed. The anterior strut is placed; sensor and acceloromter are placed. The varus valgus is set to 0 degrees/posterior slope to 1.5 degrees. Medial malleolus and lateral malleolus are regiustgered, and the tibial cut is accomplkished in the above fashion. The guidepin is placed superior to the intercondyklar notch; accelerometer and sensor are placed, and the hip center is found in this fashion. The distal femoral cut is set to 0 degrees varus/valgus. flexion to .5 degrees is set. Distal cut is accomplished and anterior posterior sizing yields the appropriate size femoral componenet. 4 in 1 block is affixed across the epicondylar axis in approximatell 3 degress external roatation. Anterior and posterior osteotomies are accomp-lished; chamfer cuts are accomplished. notch osteophytes/border osteophytes are debrided. Trial components are placed- flexion/extension gap is found to be equal and balanced. attention is turned to the patella prep. patella girth is measured to approx 32 mm. Freehand patella is osteotomized- patella is prepare with reaming. It should be noted that anterior and posterior synvoectomy had been accomplished secondary to exuberant synovitis. There was found to be a posterioor capsular contracture and a lateral patella contracture. Careful posterior capsular release was accomplished;posterior capsule is elevated from the posterior aspoect of the femur. Lateral patella dretinaculum is released using the electrocautery. Trialing is again accomplished; ,patella balance is found to be excellent. Flexion/extension balance is found to be excellent as well. The femur, tibia and patella are prepared. The femoral component is cemented; the tibial and patella componenets are cementedaswell as the patella componenet. Tourniquet had been deflated; hemostasis is accomplished;closure is in layers with #2 fiberwire; followed by 0 quill, 2-0 vicryl and faraz for skin. Luis Umana compression dressing is applied and this the end of the op note on a patient named Sunday Leonardo. Procedure/Operation Description: L TKR. anterior and posterior synovecrtomy. posterior capsular release. lateral patella release. computer navigation Estimated Blood Loss: 75 cc Blood Replaced: 0 Sponge/Instrument Count: correct Drains: none Complications: none Specimen: arthritic bone/cartilage Discharge & Condition: stable
--- NOTE | 2016-11-21 13:37 | PCM.OP ---
Operative Report - Operative Report Date of Surgery/Procedure: 10/27/16 Time of Surgery/Procedure: 15:45 (time in room: 14;30) Surgeon: Dr. Del Angel Supervisor Insecticide: susannah Siu ___ Certified Registered leasing assistant Anesthesia/Sedation: General and Regional Anesthesia: Dr. CHEW Pre-Operative Diagnosis: Primary osteoarthritis left knee Post-Operative Diagnosis: Primary osteoarthritis left knee Indication for Surgery: Sunday Leonardo is a 76 year old gentleman with a severe pain and restricted motion to the knee. Pros and cons, risk and benefits of the surgery has been discussed. Possible mechanical failure, infection, THROMBOEMBOLIC___ disease, secondary or tertiary surgeries discussed. Patient understands this and wishes to proceed with the suRGERY. Operative Findings: SEVRE TRICOMPARTMENTAL o/a l KNEE. SYNOVITIS l KNEE. POSTERIOR CAPSULAR CONTRACTURE. 'LATERAL PATELLA CONTRACTURE Procedure/Operation Description: 1. Tricompartmental osteoarthritis to the left knee primary. 2. Synovitis anterior, posterior compartments. 3. 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 4. Patellar Retinacular Contracture. After having obtained informed consent, we identified the side and site of the procedure. A critical pause/timeout was performed and satisfactory to the anesthetic. Patient identified as Sunday Leonardo in the supine position. All pressure points were padded. All lower extremities were prepared and pre-draped in the sterile fashion. Lower extremities surgery: The turnicate, having been applied, was slightly inflated. AfterEXSANGUINATING THE l LOWER EXTREMITY__ using a 6 inch esmarch bandage_TOURNIQUET__ was inflated to 350 mmHg. 6 inch _STRAIGHT MIDLINE APPROACH IS MADE TO THE KNEE_iNCISION IS CARRIED DOWNto the skin and subcutaneous tissue. A medial arthrotomy is accomplished. The section is carried around posteriomedially under the direct head of the semimembranous tendon. A portion of the patella ligament is elevated around_LATER AL ASPEC OF TIBIAL PLATEAU is accomplished. This having been accomplished, posterior, anterior cruciate ligaments are excised. Medial, lateral meniscectomies are accomplished. The tibia is dislocated anteriorly. The initial osteotomy of the arthroplasty is accomplished on the tibial side. Computer navigation at this point commences using accelerometer. The tibial struters are fixed. The sensor and the ACCELOROmeter placed. Had it set at 0 degrees varus/valgus and approximately .5 degrees posterior slope. This having been accomplished, the initial osteotomy having been accomplished. The tibia is prepared for the #5 tibial tray. _gUIDES TOrotation Are the lateral aspect of the tibial condylemedial third of the tibial tuberosity.this having been accomplished the proximal cut surface is prepared. The navigational device- distal femoral cutting guideplaced above the intercondyle notch. The distal cutting guide is placed. At this point in time the accelerometer and the sensor are placed. The hip center is found. The rotational guide is to 0 degrees varus/ valgus. The distal cut is accomplished at 0 degrees, .5 degrees of flexion. Distal cut having been accomplished, anterior, posterior sizing is for #4 femoral component. This having been accomplished. Anterior, posterior osteotomies are accomplished, and the four in 1 block on the distal aspect of the femur is positioned. _4__cuts having been accomplished, Posterior capsuleintercondylar notch cut was released, the lateral patellar retinaculum is released as well. Posterior capsular is released, lateral patellar released. Anterior, posterior synovectomy having been accomplished. Again, distal cut has been accomplished. Anterior, posterior osteotomies having been accomplished. Check for cuts have been accomplished. Posterior capsular is released, lateral patellar retinaculum is released. At this point in time,intercondylar notch cut is accomplished. #4 cemented femoral component. #5 cemented tibial tray. 12 mm tibial poly. Flexion, extension, balance, appears to be excellent. stability is found to be acceptable. Attention is now tuyrned to the patella. The patella girth is found to be 33 mm ._Freehand patella osteotomies is accomplished. Reamingis accomplishesd with 37 mm patellar. component. The wound is thoroughly irrigated. At this point in time, the femur, tibia, and patella are prepared. #4 cemented femoral component is applied. #5 cemented tibial tray. Size37 mm patellar component is employed. The wound is thoroughly irrigated. The tourniquet is deflated.Hemostatis is controlled with the _Aqua, antysSynovectomy anterior, posterior having been accomplished. Lateral patellar vacuum having been accomplished. Posterior capsular released having been accomplished. The closures and layers of #2 cryl over an 8th inch suction hemovac drain.Closure is with 0 # @ fiberwire., 2-0 vicryl and faraz for skin over 1/8 inch hemoca drain Prior to closure, flexion/extension balance is found to be excellent as well as patella balnce. End of op note. Estimated Blood Loss: Approximately 75 cc's Blood Replaced: 0 Sponge/Instrument Count: CORRECT Drains: NONE Complications: None Specimen: CARTILAGE/BONE/SYNOVIUM Discharge & Condition: STABLE POST OP CONDITION
== END 2016-10-29 13:42 | DRG 470 ==
LOC: H.OPSURG 09:32 → H.MEDSURG1 18:38
PROC: 0SBD0ZZ Excision of Left Knee Joint, Open Approach (ICD-10-PCS; 2016-10-27)
PROC: 0SND0ZZ Release Left Knee Joint, Open Approach (ICD-10-PCS; 2016-10-27)
PROC: 8E0YXBZ Computer Assisted Procedure of Lower Extremity (ICD-10-PCS; 2016-10-27)
PROC: 3E0T3BZ Introduction of Anesthetic Agent into Peripheral Nerves and Plexi, Percutaneous Approach (ICD-10-PCS; principal; 2016-10-27 09:45)
PROC: 0SRD0J9 Replacement of Left Knee Joint with Synthetic Substitute, Cemented, Open Approach (ICD-10-PCS; 2016-10-27 09:45)
DX: M12.562 Traumatic arthropathy, left knee (principal); C4A.9 Merkel cell carcinoma, unspecified; I10 Essential (primary) hypertension; X58.XXXS Exposure to other specified factors, sequela; Z87.891 Personal history of nicotine dependence; M65.9 Synovitis and tenosynovitis, unspecified; M24.562 Contracture, left knee; Z89.421 Acquired absence of other right toe(s)

== ENCOUNTER 2016-10-29 13:14 | Inpatient (IN) | payer OTHER ==
[2016-10-29 14:42] VITALS: BMI 34.2
[2016-10-29 14:55] VITALS: RESP 20
[2016-10-29] MEDS: Pantoprazole 40 mg EC Tab PO SCH (15:33)
[2016-10-29] MEDS: Oxycodone/Acetaminophen 5/325 mg Tab PO PRN ×2 (15:33→19:51)
--- NOTE | 2016-10-29 16:48 | CP.PCM.CON ---
History of Present Illness - History of Present Illness History of Present Illness: 76 y/o male with PMHx of HTN seen at bedside in TCU complaining of a wound on his right foot 2nd digit. Pt states that he has had this for about 3 weeks now. Pt denies of having any pain because of the wound. Pt states that he had been changing the dressing everyday when he was home. Pt states that he has a slip caster (Dr. Treadwell) who also takes care of the wound. Pt denies of any other pedal complains at this time. Pt denies of any recent F/N/V/C/SOB. 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) Other/Comment: spots on both luns -on immunotherapy q 3 weeks since Apr, 2016 - NEUROLOGICAL Hx Neurological Disorder: No - HEENT Hx HEENT Problems: No Hx Deafness: Yes - RENAL Hx Chronic Kidney Disease: No - ENDOCRINE/METABOLIC Hx Endocrine Disorders: No - HEMATOLOGICAL/ONCOLOGICAL Hx Blood Disorders: No Hx Blood Transfusions: No 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) Hx Chemotherapy: Yes 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) - INTEGUMENTARY Hx Dermatological Problems: Yes Other/Comment: Raúl Cell Ca - MUSCULOSKELETAL/RHEUMATOLOGICAL Hx Arthritis: Yes - GASTROINTESTINAL Hx Gastrointestinal Disorders: Yes Other/Comment: HEARTBURN - GENITOURINARY/GYNECOLOGICAL Hx Genitourinary Disorders: No - PSYCHIATRIC Hx Emotional Abuse: No Hx Physical Abuse: No Hx Substance Use: No - SURGICAL HISTORY Hx Surgeries: Yes Hx Orthopedic Surgery: Yes (10-27-16 left total knee replacement) Other/Comment: 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, scalp surgery for [place] Cell Ca, amputation of right 4th toe (osteomyelitis) - ANESTHESIA Hx Anesthesia: Yes Hx Anesthesia Reactions: No Hx Malignant Hyperthermia: No Meds Allergies/Adverse Reactions: Allergies Allergy/AdvReac Type Severity Reaction Status Date / Time No Known Allergies Allergy Verified 10/29/16 14:41 - Medications Medications: Current Medications Al Hydrox/Mg Hydrox/Simethicone (Maalox Plus 30 Ml) 30 ml PO Q6 PRN PRN Reason: Indigestion / Heartburn Amlodipine Besylate (Norvasc) 5 mg PO DAILY [facility] Docusate Sodium (Colace) 100 mg PO BID [facility] Enalapril Maleate (Vasotec) 20 mg PO DAILY [facility] Last Admin: 10/29/16 15:33 Dose: Not Given Hydrochlorothiazide (Hydrodiuril) 25 mg PO DAILY [facility] Last Admin: 10/29/16 15:33 Dose: Not Given Oxycodone/Acetaminophen (Percocet 5/325 Mg Tab) 1 tab PO Q4 PRN PRN Reason: Pain, moderate (4-7) Stop: 11/01/16 15:14 Last Admin: 10/29/16 15:33 Dose: 1 tab Pantoprazole Sodium (Protonix Ec Tab) 40 mg PO DAILY [facility] Last Admin: 10/29/16 15:33 Dose: Not Given Tramadol HCl (Ultram) 50 mg PO BID PRN PRN Reason: Pain, moderate (4-7) Zolpidem Tartrate (Ambien) 5 mg PO HS PRN PRN Reason: Insomnia Physical Exam - Constitutional Appears: Well, Non-toxic, No Acute Distress - Extremities Exam Additional comments: VASC: DP/PT pulses are palpable 2/4 b/l, BALLET SOLOIST: < 3 sec to all digits, TG: warm to cool from proximal to distal, no pitting or non-pitting edema noted DERM: wound measuring 0.5 x 0.5 x 0.1 cm at the distal tip of the 2nd digit on the right foot with granular base and no fibrosis, periwound hyperkeratosis noted, no active drainage, no purulence, no malodor, no undermining, no tunneling, no probe to bone, no erythema, no clinical suspicion of infection NEURO: protective sensation slightly diminished ORTHO: no pain on palpation of the 2nd digit on the right foot, amputated 4th digit noted on the right - Neurological Exam Neurological exam: Alert, Oriented x3 - Psychiatric Exam Psychiatric exam: Normal Affect, Normal Mood Results - Vital Signs Recent Vital Signs: Last Vital Signs Temp 98.2 F 10/29/16 15:00 Pulse 79 07/12/17 15:00 Resp 20 10/29/16 15:00 BP 127/64 10/29/16 15:00 Pulse Ox 96 10/29/16 15:00 Assessment & Plan - Assessment and Plan (Free Text) Assessment: 76 y/o male seen at bedside in TCU for a wound on distal tip of the 2nd digit on right foot Plan: Pt evaluated and chart reviewed Pt discussed with attending Dr. Treadwell Labs and vitals reviewed (afebrile) Dressing applied using bacitracin, DSD and kerlix Pt educated to keep the dressing dry Pt demonstrated verbal understanding Podiatry to follow patient while pt is in-house Thank you for the podiatry consult - Date & Time Date: 10/29/16 Time: 16:57
[2016-10-30] MEDS: Oxycodone/Acetaminophen 5/325 mg Tab PO PRN ×3 (05:33→22:12)
[2016-10-30] MEDS: Pantoprazole 40 mg EC Tab PO SCH (08:31)
[2016-10-30] MEDS: Bacitracin OINT 15GM TOP SCH ×2 (13:00→17:02)
--- NOTE | 2016-10-30 14:51 | CP.PCM.HP ---
History of Present Illness - History of Present Illness History of Present Illness: 76 yo male with history of HTN, [place] Cell Ca and Traumatic Arthritis of the left knee came in for left TKR after failing conservative management. Patient had history of trauma on the left knee about 20 yrs ago and has been having pain and clicking sensation since then. Underwent left TKR on 10/27/2016 and did well. He was transferred to TCU for PT/OT. Present on Admission - Present on Admission Any Indicators Present on Admission: No History of DVT/PE: No History of Uncontrolled Diabetes: No Urinary Catheter: No Decubitus Ulcer Present: No Review of Systems - Review of Systems All systems: reviewed and no additional remarkable complaints except (aside from those mentioned above, 12 point system review were negative by me) Past Patient History - Infectious Disease Hx of Infectious Diseases: None - Tetanus Immunizations Tetanus Immunization: Unknown - Past Medical History & Family History Past Medical History?: Yes Past Family History: Reviewed and not pertinent - Past Social History Smoking Status: Former Smoker Alcohol: Occasional Drugs: Denies - CARDIAC Hx Hypertension: Yes - PULMONARY Hx Respiratory Disorders: Yes 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) Other/Comment: spots on both lungs - on immunotherapy q 3 weeks since Apr, 2016 - NEUROLOGICAL Hx Neurological Disorder: No - HEENT Hx Deafness: Yes - RENAL Hx Chronic Kidney Disease: No - ENDOCRINE/METABOLIC Hx Endocrine Disorders: No - HEMATOLOGICAL/ONCOLOGICAL Hx Blood Transfusions: No Hx Cancer: Yes ([place]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) Hx Chemotherapy: Yes 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) - INTEGUMENTARY Hx Dermatological Problems: Yes Other/Comment: [place] Cell Ca - MUSCULOSKELETAL/RHEUMATOLOGICAL Hx Arthritis: Yes - GASTROINTESTINAL Hx Gastrointestinal Disorders: Yes Other/Comment: HEARTBURN - GENITOURINARY/GYNECOLOGICAL Hx Genitourinary Disorders: No - PSYCHIATRIC Hx Emotional Abuse: No Hx Physical Abuse: No Hx Substance Use: No - SURGICAL HISTORY Hx Surgeries: Yes Hx Orthopedic Surgery: Yes (10-27-16 left total knee replacement) Other/Comment: 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, scalp surgery for [place] Cell Ca, amputation of right 4th toe (osteomyelitis) - ANESTHESIA Hx Anesthesia: Yes Hx Anesthesia Reactions: No Hx Malignant Hyperthermia: No Meds Allergies/Adverse Reactions: Allergies Allergy/AdvReac Type Severity Reaction Status Date / Time No Known Allergies Allergy Verified 10/29/16 14:41 Physical Exam - Constitutional Appears: No Acute Distress - Head Exam Head Exam: ATRAUMATIC - Eye Exam Eye Exam: absent: Scleral icterus - ENT Exam ENT Exam: Mucous Membranes Moist - Neck Exam Neck exam: Negative for: Meningismus - Respiratory Exam Respiratory Exam: absent: Rhonchi, Wheezes, Respiratory Distress - Cardiovascular Exam Cardiovascular Exam: REGULAR RHYTHM, +S1, +S2 - GI/Abdominal Exam GI & Abdominal Exam: Soft. absent: Tenderness - Rectal Exam Rectal Exam: Deferred - Extremities Exam Extremities exam: Negative for: full ROM (limited ROM on left knee) - Neurological Exam Neurological exam: Alert, Oriented x3 - Psychiatric Exam Psychiatric exam: Normal Affect - Skin Skin Exam: Dry, Intact Results - Vital Signs Recent Vital Signs: Last Vital Signs Temp 97.5 F L 10/30/16 09:02 Pulse 73 10/30/16 09:02 Resp 20 10/30/16 09:02 BP 133/64 10/30/16 09:02 Pulse Ox 95 10/30/16 09:02 Assessment & Plan - Assessment and Plan (Free Text) Assessment: 76 yo male with history of HTN, 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 Patient had history of trauma on the left knee about 20 yrs ago and has been having pain and clicking sensation since then. Underwent left TKR on 10/27/2016 and did well. He was transferred to TCU for PT/OT. (1) Traumatic arthritis of knee Post left TKR, day # 3 continue pain management continue PT/OT on Lovenox for DVT prophylaxis Ortho following (2) HTN (hypertension) BP stable continue Vasotec, Norvasc and HCTZ (3) Raúl cell carcinoma patient undergoing immunotherapy every 3 weeks since Apr, 2016 was scheduled for immunotherapy today but oncologist, Dr Lundberg, recommended pushing it back probably a week later if patient is still an in patient next week, Dr Lundberg recommended that we call his office to set up an appointment and make arrangement for transport office phone nos. [phone] (4) DVT prophylaxis Lovenox 40mg SC daily
[2016-10-31] MEDS: Alum-Mag Hydrox-Simethicone Susp (30 mL) PO PRN ×2 (04:01→17:44)
--- NOTE | 2016-10-31 09:19 | CP.PCM.PN ---
Subjective - Date & Time of Evaluation Date of Evaluation: 10/31/16 Time of Evaluation: 06:30 - Subjective Subjective: 76 y/o male seen at bedside in TCU complaining of a wound on his right foot 2nd digit. Pt appears to be resting comfortably in his bed. Pt is AAOx3 and is in NAD. Pt denies of any other pedal complains at this time. Pt denies of any recent F/N/V/C/SOB. Objective - Vital Signs/Intake and Output Vital Signs (last 24 hours): Temp Pulse Resp BP Pulse Ox 98.1 F 79 20 147/71 97 10/31/16 08:35 10/31/16 08:35 10/31/16 08:35 10/31/16 08:35 10/31/16 08:35 - Medications Medications: Current Medications Al Hydrox/Mg Hydrox/Simethicone (Maalox Plus 30 Ml) 30 ml PO Q6 PRN PRN Reason: Indigestion / Heartburn Last Admin: 10/31/16 04:01 Dose: 30 ml Amlodipine Besylate (Norvasc) 5 mg PO DAILY [facility] Last Admin: 10/30/16 09:00 Dose: 5 mg Bacitracin (Bacitracin Oint) 1 applic TOP TID [facility] Last Admin: 10/30/16 17:02 Dose: Not Given Docusate Sodium (Colace) 100 mg PO BID [facility] Last Admin: 10/30/16 17:03 Dose: 100 mg Enalapril Maleate (Vasotec) 20 mg PO DAILY [facility] Last Admin: 10/30/16 08:31 Dose: 20 mg Enoxaparin Sodium (Lovenox) 40 mg SC DAILY [facility] PRN Reason: Protocol Hydrochlorothiazide (Hydrodiuril) 25 mg PO DAILY [facility] Last Admin: 10/30/16 08:31 Dose: 25 mg Oxycodone/Acetaminophen (Percocet 5/325 Mg Tab) 1 tab PO Q4 PRN PRN Reason: Pain, moderate (4-7) Stop: 11/01/16 15:14 Last Admin: 10/30/16 22:12 Dose: 1 tab Pantoprazole Sodium (Protonix Ec Tab) 40 mg PO DAILY [facility] Last Admin: 10/30/16 08:31 Dose: 40 mg Tramadol HCl (Ultram) 50 mg PO BID PRN PRN Reason: Pain, moderate (4-7) Last Admin: 10/30/16 15:43 Dose: 50 mg Zolpidem Tartrate (Ambien) 5 mg PO HS PRN PRN Reason: Insomnia - Constitutional Appears: Well, Non-toxic, No Acute Distress - Extremities Exam Additional comments: VASC: DP/PT pulses are palpable 2/4 b/l, IT ANALYST: < 3 sec to all digits, TG: warm to cool from proximal to distal, no pitting or non-pitting edema noted DERM: wound measuring 0.5 x 0.5 x 0.1 cm at the distal tip of the 2nd digit on the right foot with granular base and no fibrosis, periwound hyperkeratosis noted, no active drainage, no purulence, no malodor, no undermining, no tunneling, no probe to bone, no erythema, no clinical suspicion of infection NEURO: protective sensation slightly diminished ORTHO: no pain on palpation of the 2nd digit on the right foot, amputated 4th digit noted on the right - Neurological Exam Neurological Exam: Alert, Awake, Oriented x3 - Psychiatric Exam Psychiatric exam: Normal Affect, Normal Mood Assessment and Plan - Assessment and Plan (Free Text) Assessment: Pt evaluated and chart reviewed Pt discussed with attending Dr. Treadwell Labs and vitals reviewed (afebrile) Dressing applied using bacitracin, DSD and kerlix Pt educated to keep the dressing dry Pt demonstrated verbal understanding Podiatry to follow patient while pt is in-house Plan: Pt evaluated and chart reviewed Pt discussed with attending Dr. Treadwell Labs and vitals reviewed (afebrile) Dressing applied using bacitracin, DSD and kerlix Pt educated to keep the dressing dry Pt demonstrated verbal understanding Podiatry to follow patient while pt is in-house
[2016-10-31] MEDS: Bacitracin OINT 15GM TOP SCH ×3 (09:43→17:44)
[2016-10-31] MEDS: Pantoprazole 40 mg EC Tab PO SCH (09:44)
[2016-10-31] MEDS: Enoxaparin 40 mg Syringe SC SCH (09:44)
[2016-10-31] MEDS: Oxycodone/Acetaminophen 5/325 mg Tab PO PRN ×2 (11:22→14:20)
[2016-11-01] MEDS: Oxycodone/Acetaminophen 5/325 mg Tab PO PRN ×5 (02:41→22:29)
[2016-11-01] MEDS: Pantoprazole 40 mg EC Tab PO SCH (08:23)
[2016-11-01] MEDS: Enoxaparin 40 mg Syringe SC SCH (08:23)
[2016-11-01] MEDS ORDERED: Lactulose 10 gm/15 ml Syrup PO PRN (17:33)
[2016-11-01] MEDS: Bacitracin OINT 15GM TOP SCH (19:41)
[2016-11-02] MEDS: Oxycodone/Acetaminophen 5/325 mg Tab PO PRN ×3 (06:57→21:08)
[2016-11-02] MEDS: Bacitracin OINT 15GM TOP SCH (09:00)
[2016-11-02] MEDS: Enoxaparin 40 mg Syringe SC SCH (09:01)
[2016-11-02] MEDS: Pantoprazole 40 mg EC Tab PO SCH (09:02)
[2016-11-03] MEDS: Oxycodone/Acetaminophen 5/325 mg Tab PO PRN ×3 (08:14→17:36)
[2016-11-03] MEDS: Enoxaparin 40 mg Syringe SC SCH (08:14)
[2016-11-03] MEDS: Pantoprazole 40 mg EC Tab PO SCH (08:15)
[2016-11-03] MEDS: Bacitracin OINT 15GM TOP SCH (17:37)
[2016-11-04] MEDS: Oxycodone/Acetaminophen 5/325 mg Tab PO PRN ×3 (00:11→16:22)
[2016-11-04] MEDS: Pantoprazole 40 mg EC Tab PO SCH (08:35)
[2016-11-04] MEDS: Bacitracin OINT 15GM TOP SCH (12:42)
--- NOTE | 2016-11-04 13:11 | CP.PCM.PN ---
Subjective - Date & Time of Evaluation Date of Evaluation: 11/04/16 Time of Evaluation: 07:40 - Subjective Subjective: 76 year old male patient seen in TCU for right foot 2nd digit plantar ulceration. Patient is resting comfortably in bed, AAOx3 and NAD. Patient denies any acute events overnight. Patient is complaining of generalized lower extremity pain from his knee surgery, but denies any pain to his right foot. Patient denies N/V/F/C/D/SOB/CP. No other pedal complaints at this time. Objective - Vital Signs/Intake and Output Vital Signs (last 24 hours): Temp Pulse Resp BP Pulse Ox 97.3 F L 74 20 153/80 H 96 11/04/16 08:12 11/04/16 08:35 11/04/16 08:12 11/04/16 08:35 11/04/16 08:12 - Medications Medications: Current Medications Al Hydrox/Mg Hydrox/Simethicone (Maalox Plus 30 Ml) 30 ml PO Q6 PRN PRN Reason: Indigestion / Heartburn Last Admin: 10/31/16 17:44 Dose: 30 ml Amlodipine Besylate (Norvasc) 5 mg PO DAILY [facility] Last Admin: 11/04/16 08:35 Dose: 5 mg Bacitracin (Bacitracin Oint) 1 applic TOP DAILY [facility] Last Admin: 11/04/16 12:42 Dose: Not Given Docusate Sodium (Colace) 100 mg PO BID [facility] Last Admin: 11/04/16 08:35 Dose: 100 mg Enalapril Maleate (Vasotec) 20 mg PO DAILY [facility] Last Admin: 11/04/16 08:35 Dose: 20 mg Enoxaparin Sodium (Lovenox) 40 mg SC DAILY [facility] PRN Reason: Protocol Hydrochlorothiazide (Hydrodiuril) 25 mg PO DAILY [facility] Last Admin: 11/04/16 08:35 Dose: 25 mg Lactulose (Enulose) 10 gm PO DAILY PRN PRN Reason: Constipation Oxycodone/Acetaminophen (Percocet 5/325 Mg Tab) 1 tab PO Q4 PRN PRN Reason: Pain, moderate (4-7) Stop: 11/04/16 17:34 Last Admin: 11/04/16 08:34 Dose: 1 tab Pantoprazole Sodium (Protonix Ec Tab) 40 mg PO DAILY [facility] Last Admin: 11/04/16 08:35 Dose: 40 mg Tramadol HCl (Ultram) 50 mg PO BID PRN PRN Reason: Pain, moderate (4-7) Last Admin: 11/03/16 02:16 Dose: 50 mg Zolpidem Tartrate (Ambien) 5 mg PO HS PRN PRN Reason: Insomnia Last Admin: 11/02/16 22:00 Dose: 5 mg - Constitutional Appears: Well, Non-toxic, No Acute Distress - Extremities Exam Additional comments: Vasc: DP and PT pulses palpable 2/4 b/l. CFT <3 seconds to all digits. TG warm to warm. No increase in warmth to right 2nd digit. Neuro: Gross sensation slightly diminished. Derm: Ulceration measuring approximately 0.5 x 0.5 x 0.1 cm at the distal plantar aspect of right 2nd digit with granular base. Hyperkeratotic rim noted. No active drainage, purulence, malodor, fluctuance, probe to bone noted. No clinical suspicion of infection noted. Ortho: No pain on palpation noted to right 2nd digit. 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 - Neurological Exam Neurological Exam: Alert, Awake, Oriented x3 - Psychiatric Exam Psychiatric exam: Normal Affect, Normal Mood Assessment and Plan - Assessment and Plan (Free Text) Assessment: 76 year old male with ulceration to right 2nd digit Plan: Patient seen and evaluated at bedside. Discussed with attending Dr. Treadwell Charts, labs, vitals reviewed = afebrile Bacitracin applied to ulceration and dressed with 4x4 and kerlix Stable from podiatry standpoint. Podiatry will continue to follow patient while in house
--- NOTE | 2016-11-04 17:23 | CP.PCM.PN ---
Subjective - Date & Time of Evaluation Date of Evaluation: 11/04/16 Time of Evaluation: 11:00 - Subjective Subjective: Pt seen and examined. Still unable to ambulate by himself but admitted getting better Objective - Vital Signs/Intake and Output Vital Signs (last 24 hours): Temp Pulse Resp BP Pulse Ox 97.3 F L 74 20 153/80 H 98 11/04/16 08:12 11/04/16 16:02 11/04/16 08:12 11/04/16 16:02 11/04/16 16:02 - Medications Medications: Current Medications Al Hydrox/Mg Hydrox/Simethicone (Maalox Plus 30 Ml) 30 ml PO Q6 PRN PRN Reason: Indigestion / Heartburn Last Admin: 10/31/16 17:44 Dose: 30 ml Amlodipine Besylate (Norvasc) 5 mg PO DAILY [facility] Last Admin: 11/04/16 08:35 Dose: 5 mg Bacitracin (Bacitracin Oint) 1 applic TOP DAILY [facility] Last Admin: 11/04/16 12:42 Dose: Not Given Docusate Sodium (Colace) 100 mg PO BID [facility] Last Admin: 11/04/16 16:28 Dose: 100 mg Enalapril Maleate (Vasotec) 20 mg PO DAILY [facility] Last Admin: 11/04/16 08:35 Dose: 20 mg Enoxaparin Sodium (Lovenox) 40 mg SC DAILY [facility] PRN Reason: Protocol Hydrochlorothiazide (Hydrodiuril) 25 mg PO DAILY [facility] Last Admin: 11/04/16 08:35 Dose: 25 mg Lactulose (Enulose) 10 gm PO DAILY PRN PRN Reason: Constipation Oxycodone/Acetaminophen (Percocet 5/325 Mg Tab) 1 tab PO Q4 PRN PRN Reason: Pain, moderate (4-7) Stop: 11/04/16 17:34 Last Admin: 11/04/16 16:22 Dose: 1 tab Pantoprazole Sodium (Protonix Ec Tab) 40 mg PO DAILY [facility] Last Admin: 11/04/16 08:35 Dose: 40 mg Tramadol HCl (Ultram) 50 mg PO BID PRN PRN Reason: Pain, moderate (4-7) Last Admin: 11/03/16 02:16 Dose: 50 mg Zolpidem Tartrate (Ambien) 5 mg PO HS PRN PRN Reason: Insomnia Last Admin: 11/02/16 22:00 Dose: 5 mg - Constitutional Appears: No Acute Distress - Head Exam Head Exam: ATRAUMATIC - Eye Exam Eye Exam: absent: Scleral icterus - ENT Exam ENT Exam: Mucous Membranes Moist - Neck Exam Neck Exam: absent: Meningismus - Respiratory Exam Respiratory Exam: absent: Rhonchi, Wheezes, Respiratory Distress - Cardiovascular Exam Cardiovascular Exam: REGULAR RHYTHM, +S1, +S2 - GI/Abdominal Exam GI & Abdominal Exam: Soft. 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 Patient had history of trauma on the left knee about 20 yrs ago and has been having pain and clicking sensation since then. Underwent left TKR on 10/27/2016 and did well. He was transferred to TCU for PT/OT. 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 [phone] (4) DVT prophylaxis Lovenox 40mg SC daily
[2016-11-04] MEDS: Enoxaparin 40 mg Syringe SC SCH (20:42)
--- NOTE | 2016-11-04 21:36 | CP.PCM.PN ---
Subjective - Date & Time of Evaluation Date of Evaluation: 11/04/16 Time of Evaluation: 09:35 - Subjective Subjective: S- pt comfortable/complaing of pain in L ribs Objective - Vital Signs/Intake and Output Vital Signs (last 24 hours): Temp Pulse Resp BP Pulse Ox 97.3 F L 94 H 20 122/66 95 11/04/16 17:28 11/04/16 17:28 11/04/16 17:28 11/04/16 17:28 11/04/16 17:28 - Medications Medications: Current Medications Al Hydrox/Mg Hydrox/Simethicone (Maalox Plus 30 Ml) 30 ml PO Q6 PRN PRN Reason: Indigestion / Heartburn Last Admin: 10/31/16 17:44 Dose: 30 ml Amlodipine Besylate (Norvasc) 5 mg PO DAILY [facility] Last Admin: 11/04/16 08:35 Dose: 5 mg Bacitracin (Bacitracin Oint) 1 applic TOP DAILY [facility] Last Admin: 11/04/16 12:42 Dose: Not Given Docusate Sodium (Colace) 100 mg PO BID [facility] Last Admin: 11/04/16 16:28 Dose: 100 mg Enalapril Maleate (Vasotec) 20 mg PO DAILY [facility] Last Admin: 11/04/16 08:35 Dose: 20 mg Enoxaparin Sodium (Lovenox) 40 mg SC DAILY [facility] PRN Reason: Protocol Last Admin: 11/04/16 20:42 Dose: 40 mg Hydrochlorothiazide (Hydrodiuril) 25 mg PO DAILY [facility] Last Admin: 11/04/16 08:35 Dose: 25 mg Lactulose (Enulose) 10 gm PO DAILY PRN PRN Reason: Constipation Pantoprazole Sodium (Protonix Ec Tab) 40 mg PO DAILY [facility] Last Admin: 11/04/16 08:35 Dose: 40 mg Tramadol HCl (Ultram) 50 mg PO BID PRN PRN Reason: Pain, moderate (4-7) Last Admin: 11/03/16 02:16 Dose: 50 mg Zolpidem Tartrate (Ambien) 5 mg PO HS PRN PRN Reason: Insomnia Last Admin: 11/02/16 22:00 Dose: 5 mg - Skin Additional comments: Musculoskekltal pt complaining of discomfort L ribs, secondary to afll prior to admission no complaints referable to TKR wound being dressing changed no calftyendenrness or Candida's Assessment and Plan - Assessment and Plan (Free Text) Assessment: A- s/p L TKR P- L rib series Xray
[2016-11-05] MEDS: Oxycodone/Acetaminophen 5/325 mg Tab PO PRN ×5 (07:27→23:12)
[2016-11-05] MEDS: Bacitracin OINT 15GM TOP SCH (09:22)
[2016-11-05] MEDS: Pantoprazole 40 mg EC Tab PO SCH (09:23)
[2016-11-05] MEDS: Enoxaparin 40 mg Syringe SC SCH (10:15)
[2016-11-06] MEDS: Oxycodone/Acetaminophen 5/325 mg Tab PO PRN ×3 (08:36→21:30)
[2016-11-06] MEDS: Pantoprazole 40 mg EC Tab PO SCH (08:36)
[2016-11-06] MEDS: Bacitracin OINT 15GM TOP SCH (08:37)
[2016-11-06] MEDS: Enoxaparin 40 mg Syringe SC SCH (08:38)
--- NOTE | 2016-11-06 09:18 | CP.PCM.PN ---
Subjective - Date & Time of Evaluation Date of Evaluation: 11/06/16 Time of Evaluation: 12:00 - Subjective Subjective: Patient seen and examined bedside. Complains of pain to left knee Hemodynamically stable, afebrile Participating well with PT Objective - Vital Signs/Intake and Output Vital Signs (last 24 hours): Temp Pulse Resp BP Pulse Ox 97.9 F 76 20 136/73 99 11/06/16 08:08 11/06/16 08:37 11/06/16 08:08 11/06/16 08:37 11/06/16 08:08 - Medications Medications: Current Medications Al Hydrox/Mg Hydrox/Simethicone (Maalox Plus 30 Ml) 30 ml PO Q6 PRN PRN Reason: Indigestion / Heartburn Last Admin: 10/31/16 17:44 Dose: 30 ml Amlodipine Besylate (Norvasc) 5 mg PO DAILY [facility] Last Admin: 11/06/16 08:37 Dose: 5 mg Bacitracin (Bacitracin Oint) 1 applic TOP DAILY [facility] Last Admin: 11/06/16 08:37 Dose: 1 applic Docusate Sodium (Colace) 100 mg PO BID [facility] Last Admin: 11/06/16 08:36 Dose: 100 mg Enalapril Maleate (Vasotec) 20 mg PO DAILY [facility] Last Admin: 11/06/16 08:37 Dose: 20 mg Enoxaparin Sodium (Lovenox) 40 mg SC DAILY [facility] PRN Reason: Protocol Last Admin: 11/06/16 08:38 Dose: 40 mg Hydrochlorothiazide (Hydrodiuril) 25 mg PO DAILY [facility] Last Admin: 11/06/16 08:37 Dose: 25 mg Lactulose (Enulose) 10 gm PO DAILY PRN PRN Reason: Constipation Oxycodone/Acetaminophen (Percocet 5/325 Mg Tab) 1 tab PO Q4 PRN PRN Reason: Pain, severe (8-10) Stop: 11/07/16 23:51 Last Admin: 11/06/16 08:36 Dose: 1 tab Pantoprazole Sodium (Protonix Ec Tab) 40 mg PO DAILY [facility] Last Admin: 11/06/16 08:36 Dose: 40 mg Tramadol HCl (Ultram) 50 mg PO BID PRN PRN Reason: Pain, moderate (4-7) Last Admin: 11/03/16 02:16 Dose: 50 mg Zolpidem Tartrate (Ambien) 5 mg PO HS PRN PRN Reason: Insomnia Last Admin: 11/06/16 01:49 Dose: 5 mg - Constitutional Appears: Non-toxic, No Acute Distress - Head Exam Head Exam: ATRAUMATIC, NORMAL INSPECTION, NORMOCEPHALIC - Eye Exam Eye Exam: EOMI, Normal appearance, PERRL Pupil Exam: NORMAL ACCOMODATION - ENT Exam ENT Exam: Mucous Membranes Moist, Normal Exam - Neck Exam Neck Exam: Full ROM, Normal Inspection - Respiratory Exam Respiratory Exam: Clear to Ausculation Bilateral, NORMAL BREATHING PATTERN. absent: Rhonchi, Wheezes, Respiratory Distress - Cardiovascular Exam Cardiovascular Exam: REGULAR RHYTHM, RRR, +S1, +S2. absent: JVD - GI/Abdominal Exam GI & Abdominal Exam: Soft, Normal Bowel Sounds. absent: Distended, Guarding, Tenderness, Rebound - Rectal Exam Rectal Exam: Deferred - Extremities Exam Extremities Exam: absent: Calf Tenderness Additional comments: Left knee darleen bandage in place toes warm to touch, sensation intact,able to move, pain is tolerated - Back Exam Back Exam: NORMAL INSPECTION - Neurological Exam Neurological Exam: Alert, Awake, CN II-XII Intact, Oriented x3 - Psychiatric Exam Psychiatric exam: Normal Affect, Normal Mood - Skin Skin Exam: Dry, Normal Color, Warm Assessment and Plan - Assessment and Plan (Free Text) Assessment: 76 yo male with history of HTN, 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 Patient had history of trauma on the left knee about 20 yrs ago and has been having pain and clicking sensation since then. Underwent left TKR on 10/27/2016 and did well. He was transferred to TCU for PT/OT and at present participating well with PT 1.Traumatic arthritis of knee s/p Left TKR Post left TKR, day # 9 participating with PT Ortho following Continue pain management continue PT/OT DVt prophylaxis with Lovenox 2. HTN (hypertension) BP stable continue Vasotec, Norvasc and HCTZ 3. [place] cell carcinoma patient has been undergoing immunotherapy every 3 weeks since Apr, 2016 Dr Lundberg, recommended pushing back immunotherapy until patient is discharged probably within this week immunotherapy office phone nos. [phone] 4.DVT prophylaxis Lovenox 40mg SC daily
[2016-11-07] MEDS: Oxycodone/Acetaminophen 5/325 mg Tab PO PRN ×4 (06:45→21:15)
--- NOTE | 2016-11-07 08:03 | CP.PCM.PN ---
Subjective - Date & Time of Evaluation Date of Evaluation: 11/07/16 Time of Evaluation: 06:30 - Subjective Subjective: 76 year old male patient seen in TCU for right foot 2nd digit plantar ulceration. Patient is resting comfortably in bed, AAOx3 and NAD. Patient denies any acute events overnight. Patient admits to slight pain in his right 2nd digit. Patient states he is walking more. Patient denies N/V/F/C/D/SOB/CP. No other pedal complaints at this time. Objective - Vital Signs/Intake and Output Vital Signs (last 24 hours): Temp Pulse Resp BP Pulse Ox 98.6 F 82 20 119/82 93 L 11/06/16 21:21 11/06/16 21:21 11/06/16 21:21 11/06/16 21:21 11/06/16 21:21 - Medications Medications: Current Medications Al Hydrox/Mg Hydrox/Simethicone (Maalox Plus 30 Ml) 30 ml PO Q6 PRN PRN Reason: Indigestion / Heartburn Last Admin: 10/31/16 17:44 Dose: 30 ml Amlodipine Besylate (Norvasc) 5 mg PO DAILY [facility] Last Admin: 11/06/16 08:37 Dose: 5 mg Bacitracin (Bacitracin Oint) 1 applic TOP DAILY [facility] Last Admin: 11/06/16 08:37 Dose: 1 applic Docusate Sodium (Colace) 100 mg PO BID [facility] Last Admin: 11/06/16 18:09 Dose: 100 mg Enalapril Maleate (Vasotec) 20 mg PO DAILY [facility] Last Admin: 11/06/16 08:37 Dose: 20 mg Enoxaparin Sodium (Lovenox) 40 mg SC DAILY [facility] PRN Reason: Protocol Last Admin: 11/06/16 08:38 Dose: 40 mg Hydrochlorothiazide (Hydrodiuril) 25 mg PO DAILY [facility] Last Admin: 11/06/16 08:37 Dose: 25 mg Lactulose (Enulose) 10 gm PO DAILY PRN PRN Reason: Constipation Oxycodone/Acetaminophen (Percocet 5/325 Mg Tab) 1 tab PO Q4 PRN PRN Reason: Pain, severe (8-10) Stop: 11/07/16 23:51 Last Admin: 11/07/16 06:45 Dose: 1 tab Pantoprazole Sodium (Protonix Ec Tab) 40 mg PO DAILY [facility] Last Admin: 11/06/16 08:36 Dose: 40 mg Sodium Phosphate (Fleet Enema) 135 ml DE ONCE ONE Stop: 11/07/16 06:55 Tramadol HCl (Ultram) 50 mg PO BID PRN PRN Reason: Pain, moderate (4-7) Last Admin: 11/03/16 02:16 Dose: 50 mg Zolpidem Tartrate (Ambien) 5 mg PO HS PRN PRN Reason: Insomnia Last Admin: 11/06/16 22:33 Dose: 5 mg - Constitutional Appears: Well, Non-toxic, No Acute Distress - Extremities Exam Additional comments: LLE focused physical exam: Vasc: DP and PT pulses palpable 2/4. CFT <3 seconds to all digits. TG warm to warm. No increase in warmth to right 2nd digit. Neuro: Gross sensation slightly diminished. Derm: Ulceration measuring approximately 0.5 x 0.5 x 0.1 cm at the distal plantar aspect of right 2nd digit with granular base. Hyperkeratotic rim noted. No active drainage, purulence, malodor, fluctuance, probe to bone noted. No clinical suspicion of infection noted. Ortho: Mild pain on palpation noted to right 2nd digit. 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 - Neurological Exam Neurological Exam: Alert, Awake, Oriented x3 - Psychiatric Exam Psychiatric exam: Normal Affect, Normal Mood Assessment and Plan - Assessment and Plan (Free Text) Assessment: 76 year old male with ulceration to right 2nd digit Plan: Patient seen and evaluated at bedside. Discussed with attending Dr. Treadwell Charts, labs, vitals reviewed = afebrile Hyperkeratosis sharply pared using a #15 blade without incident 2nd digit dressed with 4x4 and marc Foot XR taken r/o OM Stable from podiatry standpoint. Podiatry will continue to follow patient while in house
[2016-11-07] MEDS: Bacitracin OINT 15GM TOP SCH (08:49)
[2016-11-07] MEDS: Enoxaparin 40 mg Syringe SC SCH (08:49)
[2016-11-07] MEDS: Pantoprazole 40 mg EC Tab PO SCH (08:49)
[2016-11-07] MEDS ORDERED: Chlorhexidine Gluconate 1 APPL/PKT TP ONE (10:40)
--- NOTE | 2016-11-07 10:40 | RAD ---
PROCEDURE: Right Foot Radiographs. 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 Degenerative changes. No acute displaced fracture appreciated. JOINTS: No dislocation. Joint space narrowing. SOFT TISSUES: Mild soft tissue swelling. No evidence of radiopaque foreign body. OTHER FINDINGS: None. 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 Degenerative changes. Please note that MRI without and with IV contrast is the most sensitive modality for detection of acute osteomyelitis.
[2016-11-08] MEDS: Enoxaparin 40 mg Syringe SC SCH (09:07)
[2016-11-08] MEDS: Bacitracin OINT 15GM TOP SCH (09:07)
[2016-11-08] MEDS: Pantoprazole 40 mg EC Tab PO SCH (09:08)
[2016-11-08] MEDS: Oxycodone/Acetaminophen 5/325 mg Tab PO PRN ×2 (13:52→18:08)
--- NOTE | 2016-11-08 17:33 | CP.PCM.PN ---
Subjective - Date & Time of Evaluation Date of Evaluation: 11/08/16 Time of Evaluation: 07:30 - Subjective Subjective: 76 year old male patient seen at bedside in TCU with attending, Dr. Treadwell, for right 2nd digit plantar ulceration. Patient resting comfortably in bed, AAOx3 and NAD. Patient denies any acute events overnight. Patient admits to soreness in right 2nd digit, and believes it may be physical therapy and ambulating home. Patient denies N/V/F/D/C/SOB/CP. No other pedal complaints at this time. Objective - Vital Signs/Intake and Output Vital Signs (last 24 hours): Temp Pulse Resp BP Pulse Ox 98.4 F 78 20 124/63 96 11/08/16 16:46 11/08/16 16:46 11/08/16 16:46 11/08/16 16:46 11/08/16 16:46 - Medications Medications: Current Medications Al Hydrox/Mg Hydrox/Simethicone (Maalox Plus 30 Ml) 30 ml PO Q6 PRN PRN Reason: Indigestion / Heartburn Last Admin: 10/31/16 17:44 Dose: 30 ml Amlodipine Besylate (Norvasc) 5 mg PO DAILY [facility] Last Admin: 11/08/16 09:08 Dose: 5 mg Bacitracin (Bacitracin Oint) 1 applic TOP DAILY [facility] Last Admin: 11/08/16 09:07 Dose: 1 applic Docusate Sodium (Colace) 100 mg PO BID [facility] Last Admin: 11/08/16 09:07 Dose: 100 mg Enalapril Maleate (Vasotec) 20 mg PO DAILY [facility] Last Admin: 11/08/16 09:08 Dose: 20 mg Enoxaparin Sodium (Lovenox) 40 mg SC DAILY [facility] PRN Reason: Protocol Last Admin: 11/08/16 09:07 Dose: 40 mg Hydrochlorothiazide (Hydrodiuril) 25 mg PO DAILY [facility] Last Admin: 11/08/16 09:07 Dose: 25 mg Lactulose (Enulose) 10 gm PO DAILY PRN PRN Reason: Constipation Oxycodone/Acetaminophen (Percocet 5/325 Mg Tab) 1 tab PO Q4 PRN PRN Reason: Pain, moderate (4-7) Stop: 11/11/16 10:54 Last Admin: 11/08/16 13:52 Dose: 1 tab Pantoprazole Sodium (Protonix Ec Tab) 40 mg PO DAILY [facility] Last Admin: 11/08/16 09:08 Dose: 40 mg Tramadol HCl (Ultram) 50 mg PO BID PRN PRN Reason: Pain, moderate (4-7) Last Admin: 11/08/16 06:44 Dose: 50 mg Zolpidem Tartrate (Ambien) 5 mg PO HS PRN PRN Reason: Insomnia Last Admin: 11/07/16 21:17 Dose: 5 mg - Constitutional Appears: Well, Non-toxic, No Acute Distress - Extremities Exam Additional comments: RLE focused physical exam: Vasc: DP and PT pulses palpable 2/4. CFT <3 seconds to all digits. TG warm to warm. No increase in warmth to right 2nd digit. Neuro: Gross sensation slightly diminished. Derm: Ulceration measuring approximately 0.5 x 0.5 x 0.1 cm at the distal plantar aspect of right 2nd digit with granular base. Hyperkeratotic rim noted. No active drainage, purulence, malodor, fluctuance, probe to bone noted. No clinical suspicion of infection noted. Ortho: No pain on palpation noted to right 2nd digit. 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 - Neurological Exam Neurological Exam: Alert, Awake, Oriented x3 - Psychiatric Exam Psychiatric exam: Normal Affect, Normal Mood Assessment and Plan - Assessment and Plan (Free Text) Assessment: 76 year old male with ulceration to right 2nd digit Plan: Patient seen and evaluated at bedside with attending, Dr. Treadwell Charts, labs, vitals reviewed = afebrile Advised patient to wear surgical shoe to right foot whenever ambulating to protect R 2nd digit ulcer. 2nd digit dressed with 4x4 and marc Reviewed R foot XR: Negative for OM Per Social Work, patient will be ready for dc home by Thursday Stable from podiatry standpoint. Podiatry will continue to follow patient while in house
[2016-11-09] MEDS: Oxycodone/Acetaminophen 5/325 mg Tab PO PRN ×5 (01:46→21:33)
[2016-11-09] MEDS: Bacitracin OINT 15GM TOP SCH (08:46)
[2016-11-09] MEDS: Pantoprazole 40 mg EC Tab PO SCH (08:46)
[2016-11-09] MEDS: Enoxaparin 40 mg Syringe SC SCH (08:47)
[2016-11-10] MEDS: Oxycodone/Acetaminophen 5/325 mg Tab PO PRN ×4 (02:32→20:04)
[2016-11-10] MEDS: Bacitracin OINT 15GM TOP SCH (08:47)
[2016-11-10] MEDS: Enoxaparin 40 mg Syringe SC SCH (08:47)
[2016-11-10] MEDS: Pantoprazole 40 mg EC Tab PO SCH (08:48)
[2016-11-10] MEDS ORDERED: Chlorhexidine Gluconate 1 APPL/PKT TP ONE (11:49)
[2016-11-10 21:29] VITALS: TEMP 97.3; O2SAT 98
[2016-11-11] MEDS: Oxycodone/Acetaminophen 5/325 mg Tab PO PRN ×2 (02:48→08:35)
[2016-11-11 08:01] VITALS: BP 111/68; PULSE 80
[2016-11-11] MEDS: Pantoprazole 40 mg EC Tab PO SCH (08:27)
[2016-11-11] MEDS: Enoxaparin 40 mg Syringe SC SCH (08:28)
[2016-11-11] MEDS: Bacitracin OINT 15GM TOP SCH (08:29)
--- NOTE | 2016-11-11 09:01 | CP.PCM.PN ---
Subjective - Date & Time of Evaluation Date of Evaluation: 11/11/16 Time of Evaluation: 07:30 - Subjective Subjective: 76 year old male patient seen at bedside in TCU with attending, Dr. Treadwell, for right 2nd digit plantar ulceration. Patient resting comfortably in bed, AAOx3 and NAD. Patient denies any acute events overnight. Patient states he is being discharged today. Patient denies N/V/F/D/C/SOB/CP. No other pedal complaints at this time. Objective - Vital Signs/Intake and Output Vital Signs (last 24 hours): Temp Pulse Resp BP Pulse Ox 97.3 F L 80 20 111/68 98 11/11/16 08:01 11/11/16 08:27 11/11/16 08:01 11/11/16 08:27 11/11/16 08:01 - Medications Medications: Current Medications Al Hydrox/Mg Hydrox/Simethicone (Maalox Plus 30 Ml) 30 ml PO Q6 PRN PRN Reason: Indigestion / Heartburn Last Admin: 10/31/16 17:44 Dose: 30 ml Amlodipine Besylate (Norvasc) 5 mg PO DAILY [facility] Last Admin: 11/11/16 08:27 Dose: 5 mg Bacitracin (Bacitracin Oint) 1 applic TOP DAILY [facility] Last Admin: 11/11/16 08:29 Dose: 1 applic Docusate Sodium (Colace) 100 mg PO BID [facility] Last Admin: 11/11/16 08:29 Dose: 100 mg Enalapril Maleate (Vasotec) 20 mg PO DAILY [facility] Last Admin: 11/11/16 08:29 Dose: 20 mg Enoxaparin Sodium (Lovenox) 40 mg SC DAILY [facility] PRN Reason: Protocol Last Admin: 11/11/16 08:28 Dose: 40 mg Hydrochlorothiazide (Hydrodiuril) 25 mg PO DAILY [facility] Last Admin: 11/11/16 08:27 Dose: 25 mg Lactulose (Enulose) 10 gm PO DAILY PRN PRN Reason: Constipation Oxycodone/Acetaminophen (Percocet 5/325 Mg Tab) 1 tab PO Q4 PRN PRN Reason: Pain, moderate (4-7) Stop: 11/11/16 10:54 Last Admin: 11/11/16 08:35 Dose: 1 tab Pantoprazole Sodium (Protonix Ec Tab) 40 mg PO DAILY [facility] Last Admin: 11/11/16 08:27 Dose: 40 mg Tramadol HCl (Ultram) 50 mg PO BID PRN PRN Reason: Pain, moderate (4-7) Last Admin: 11/08/16 06:44 Dose: 50 mg Zolpidem Tartrate (Ambien) 5 mg PO HS PRN PRN Reason: Insomnia Last Admin: 11/10/16 22:08 Dose: 5 mg - Constitutional Appears: Well, Non-toxic, No Acute Distress - Extremities Exam Additional comments: RLE focused physical exam: Vasc: DP and PT pulses palpable 2/4. CFT <3 seconds to all digits. TG warm to warm. No increase in warmth to right 2nd digit. Neuro: Gross sensation slightly diminished. Derm: Healed ulceration noted to distal plantar aspect of right 2nd digit with granular base. Hyperkeratotic rim noted. No active drainage, purulence, malodor , fluctuance, probe to bone noted. No clinical suspicion of infection noted. Ortho: No pain on palpation noted to right 2nd digit. 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 - Neurological Exam Neurological Exam: Alert, Awake, Oriented x3 - Psychiatric Exam Psychiatric exam: Normal Affect, Normal Mood Assessment and Plan - Assessment and Plan (Free Text) Assessment: 76 year old male with healed ulceration to right 2nd digit Plan: Patient seen and evaluated at bedside with attending, Dr. Treadwell Charts, labs, vitals reviewed = afebrile Advised patient to wear surgical shoe to right foot whenever ambulating to protect R 2nd digit ulcer. Hyperkeratosis sharply pared using a #15 blade without incident and to patient satisfaction Per Social Work, patient will be ready for dc home today at 9AM Informed patient he needs to follow up with Dr. Treadwell as an outpatient next week. Stable from podiatry standpoint. Podiatry will continue to follow patient while in house
--- NOTE | 2016-11-11 09:11 | CP.PCM.DIS ---
Provider - Provider Date of Admission: 10/29/16 14:43 Attending physician: Aashish Wolff MD Time Spent in preparation of Discharge (in minutes): 30 Hospital Course - Hospital Course Hospital Course: 76 yo male with history of HTN, [place] Cell Ca and Traumatic Arthritis of the left knee came in for left TKR after failing conservative management. Patient had history of trauma on the left knee about 20 yrs ago and has been having pain and clicking sensation since then. Underwent left TKR on 10/27/2016 and did well. He was transferred to TCU for PT/OT and at present participating well with PT 1.Traumatic arthritis of knee s/p Left TKR Post left TKR participating with PT Ortho following Continue pain management continue PT/OT DVt prophylaxis with Lovenox 2. 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 [phone] [address] per Dr. Del Angel pt to be dc on ASA 81 mg PO q12H Discharge Exam - Head Exam Head Exam: ATRAUMATIC, NORMAL INSPECTION, NORMOCEPHALIC - Eye Exam Eye Exam: EOMI, Normal appearance, PERRL Pupil Exam: NORMAL ACCOMODATION - ENT Exam ENT Exam: Mucous Membranes Moist, Normal Oropharynx - Neck Exam Neck exam: Full Rom, Normal Inspection - Respiratory Exam Respiratory Exam: Clear to PA & Lateral, NORMAL BREATHING PATTERN - Cardiovascular Exam Cardiovascular Exam: RRR, +S1, +S2 - GI/Abdominal Exam GI & Abdominal Exam: Normal Bowel Sounds, Soft. absent: Organomegaly, Tenderness - Extremities Exam Extremities exam: normal capillary refill, pedal pulses present - Back Exam Back exam: absent: CVA tenderness (L), CVA tenderness (R) - Neurological Exam Neurological exam: Alert, Oriented x3 - Psychiatric Exam Psychiatric exam: Normal Affect, Normal Mood - Skin Skin Exam: Dry, Warm Discharge Plan - Discharge Medications Prescriptions: Aluminum Hydroxide/Magnesium [Maalox Plus 30 ml] 30 ml PO Q6 PRN #120 PRN Reason: Indigestion / Heartburn amLODIPine [Norvasc] 5 mg PO DAILY #30 Aspirin [Adult Low Dose Aspirin EC] 81 mg PO Q12 #60 tablet.dr Bacitracin OINT 1 applic TOP DAILY #1 Docusate [Colace] 100 mg PO BID #60 cap Enalapril Maleate [Vasotec] 20 mg PO DAILY #30 hydroCHLOROthiazide [Hydrodiuril] 25 mg PO DAILY #30 oxyCODONE/Acetaminophen [Percocet 5/325 mg Tab] 1 tab PO Q4 PRN #30 tab PRN Reason: Pain, Severe (8-10) Pantoprazole [Protonix EC Tab] 40 mg PO DAILY #30 ect traMADol [Ultram] 50 mg PO BID PRN #10 PRN Reason: Pain, Moderate (4-7) - Follow Up Plan Condition: GOOD Disposition: HOME/ ROUTINE Instructions: Oxycodone/Acetaminophen (By mouth), Precautions after Total Joint Replacement Surgery (DC), Staple Care (DC), Fall Prevention (DC), Knee Replacement (DC) Additional Instructions: discharge patient home 11/11/16, followup with PMD in one week, call for appointment followup with Dr. Mina Del Angel, Orthopedic MD on November 18, at 12:45pm, [phone]. followup with Appointment with Dr. Lundberg for outpatient chemo at [facility], appointment on Thursday at 11:30am. [phone] Treadwell, circular saw edge fuser, call for appointment [phone]
--- NOTE | 2016-11-11 09:13 | CP.PCM.PN ---
Subjective - Date & Time of Evaluation Date of Evaluation: 11/11/16 Time of Evaluation: 08:35 Objective - Vital Signs/Intake and Output Vital Signs (last 24 hours): Temp Pulse Resp BP Pulse Ox 97.3 F L 80 20 111/68 98 11/11/16 08:01 11/11/16 08:27 11/11/16 08:01 11/11/16 08:27 11/11/16 08:01 - Medications Medications: Current Medications Al Hydrox/Mg Hydrox/Simethicone (Maalox Plus 30 Ml) 30 ml PO Q6 PRN PRN Reason: Indigestion / Heartburn Last Admin: 10/31/16 17:44 Dose: 30 ml Amlodipine Besylate (Norvasc) 5 mg PO DAILY [facility] Last Admin: 11/11/16 08:27 Dose: 5 mg Bacitracin (Bacitracin Oint) 1 applic TOP DAILY [facility] Last Admin: 11/11/16 08:29 Dose: 1 applic Docusate Sodium (Colace) 100 mg PO BID [facility] Last Admin: 11/11/16 08:29 Dose: 100 mg Enalapril Maleate (Vasotec) 20 mg PO DAILY [facility] Last Admin: 11/11/16 08:29 Dose: 20 mg Enoxaparin Sodium (Lovenox) 40 mg SC DAILY [facility] PRN Reason: Protocol Last Admin: 11/11/16 08:28 Dose: 40 mg Hydrochlorothiazide (Hydrodiuril) 25 mg PO DAILY [facility] Last Admin: 11/11/16 08:27 Dose: 25 mg Lactulose (Enulose) 10 gm PO DAILY PRN PRN Reason: Constipation Oxycodone/Acetaminophen (Percocet 5/325 Mg Tab) 1 tab PO Q4 PRN PRN Reason: Pain, moderate (4-7) Stop: 11/11/16 10:54 Last Admin: 11/11/16 08:35 Dose: 1 tab Pantoprazole Sodium (Protonix Ec Tab) 40 mg PO DAILY [facility] Last Admin: 11/11/16 08:27 Dose: 40 mg Tramadol HCl (Ultram) 50 mg PO BID PRN PRN Reason: Pain, moderate (4-7) Last Admin: 11/08/16 06:44 Dose: 50 mg Zolpidem Tartrate (Ambien) 5 mg PO HS PRN PRN Reason: Insomnia Last Admin: 11/10/16 22:08 Dose: 5 mg
--- NOTE | 2016-11-11 10:06 | RAD ---
PROCEDURE: Radiographs of the Chest and Left Ribs. HISTORY: COMPARISON: 07/10/2016. TECHNIQUE: Frontal radiograph of the chest and multiple oblique radiographs of the left ribs were obtained. FINDINGS: LEFT RIBS: No fracture or focal lesion visualized. LUNGS: 2.7 cm rounded radiopaque mass right lung apex. This has increased in size from prior examination. Evaluation with computed tomography of the chest is advised. There is also an 11 mm nodular density seen in the lower left prudencio thorax. Again, this should be evaluated with computed tomography of the chest. No pulmonary infiltrate identified. PLEURA: No pneumothorax or pleural fluid. CARDIOVASCULAR: Normal sized heart. No pulmonary vascular congestion. OTHER FINDINGS: None. IMPRESSION: 2.7 cm rounded radiopaque mass in right lung apex. Uncertain significance. 11 mm nodular density in lower left prudencio thorax. Recommend further evaluation with computed tomography of the chest. No evidence of left rib fracture.
== END 2016-11-11 09:15 | disposition home or self-care (01) | DRG 561 ==
LOC: H.TCU 14:43
PROVIDERS: ADMIT Hospitalist; ATTEND Hospitalist
PROC: F08Z4ZZ Home Management Treatment (ICD-10-PCS; principal; 2016-10-29)
PROC: F07L0FZ Range of Motion and Joint Mobility Treatment of Musculoskeletal System - Lower Back / Lower Extremity using Assistive, Adaptive, Supportive or Protective Equipment (ICD-10-PCS; 2016-10-29)
PROC: F07Z9FZ Gait Training/Functional Ambulation Treatment using Assistive, Adaptive, Supportive or Protective Equipment (ICD-10-PCS; 2016-10-29)
PROC: F07L6ZZ Therapeutic Exercise Treatment of Musculoskeletal System - Lower Back / Lower Extremity (ICD-10-PCS; 2016-10-29)
DX: Z47.1 Aftercare following joint replacement surgery (principal); C7B.1 Secondary Merkel cell carcinoma; L97.519 Non-pressure chronic ulcer of other part of right foot with unspecified severity; Z96.652 Presence of left artificial knee joint; I10 Essential (primary) hypertension; Z85.821 Personal history of Merkel cell carcinoma; Z87.891 Personal history of nicotine dependence; Z89.421 Acquired absence of other right toe(s); L85.9 Epidermal thickening, unspecified

== ENCOUNTER 2017-01-15 10:18 | Day surgery (SDC) | payer MEDICARE ==
[2017-01-15 10:35] VITALS: BMI 30.6
[2017-01-15] MEDS ORDERED: Lactated Ringer's 1,000 ML IV ONE ×2 (11:12→13:40)
[2017-01-15] MEDS ORDERED: Midazolam 2 MG/2 ML VIAL ONE (12:26)
[2017-01-15] MEDS ORDERED: Propofol 10 mg/ml Inj (20 ML) ONE (12:26)
[2017-01-15] MEDS ORDERED: ceFAZolin 1 GM in Sodium Chloride 0.9% 100 ML IVPB ONE (12:29)
--- NOTE | 2017-01-15 12:35 | CP.SDSHP ---
Same Day Surgery H & P - History Proposed Procedure: Port placement Pre-Op Diagnosis: Raúl cell carcinoma - Allergies Allergies: Allergies No Known Allergies Allergy (Verified 01/12/17 08:58) - Physical Exam Vital Signs: Vital Signs 01/15/17 10:37 Temperature 98.2 F Pulse Rate 75 Respiratory 20 Rate Blood Pressure 134/77 O2 Sat by Pulse 97 Oximetry Mental Status: Alert & Oriented x3 Neuro: WNL Heart: WNL Lungs: WNL GI: WNL - Impression Impression: Pt with [place] cell carcinoma refered for port placement. Informed consent obtained and risk of bleeding, infection, wound dehiscence explained to the patient. Pt has tattooes on right and left chest. Port will be placed on the LEFT chest on tattoo of Nba ( Tattoo of Creation of Nba). Tattoo of Zack is on the right chest and not an option according to Pt and his . Pt was told that the tattoo could be ruined. Pt. Evaluated Today:Candidate for Anesthesia & Procedure: Yes (ASA 3 Malampati 3) Short Stay Discharge - Short Stay Discharge Admitting Diagnosis/Reason for Visit: C4A.8 Referrals: FAMILY PROVIDER,NO [Primary Care Provider] -
[2017-01-15] MEDS ORDERED: Lidocaine 1% Inj (20ml) ONE (12:49)
[2017-01-15] MEDS ORDERED: Lidocaine 2% w Epi 1:100,000 Inj IJ ONE (12:49)
--- NOTE | 2017-01-15 13:40 | PCM.SURG1 ---
Surgeon's Initial Post Op Note - Surgeon's Notes Surgeon: Supa Arias MD Circulation Sales Representative: NONE Type of Anesthesia: IV Sedation Pre-Operative Diagnosis: [place] cell cancer Operative Findings: Patent left IJV Post-Operative Diagnosis: [place] cell cancer Operation Performed: Left IJ port placement. Specimen/Specimens Removed: none Estimated Blood Loss: EBL {In ML}: 3 Blood Products Given: N/A Drains Used: No Drains Post-Op Condition: Good Date of Surgery/Procedure: 01/15/17 Time of Surgery/Procedure: 13:35
[2017-01-15] MEDS ORDERED: Lactated Ringer's 1,000 ML IV SCH (13:45)
[2017-01-15 14:50] VITALS: O2SAT 99
[2017-01-15 15:00] VITALS: BP 136/72; PULSE 70; RESP 18; TEMP 98
== END 2017-01-15 15:35 | disposition home or self-care (01) ==
LOC: H.OPSURG 10:18
PROVIDERS: ATTEND Specialist
DX: C4A.8 Merkel cell carcinoma of overlapping sites (principal)
CPT/HCPCS: 36561; 76937; 77001; C1751; C1769; J0690; J2001; J2250; J2704; J3010; J7120

== ENCOUNTER 2017-01-24 10:18 | Inpatient (IN) | payer MEDICARE ==
[2017-01-24 10:52] LABS: VENOUS BLOOD GAS PCO2 33 mmHg (40-60); VENOUS BLOOD PH 7.52 (7.32-7.43)
--- NOTE | 2017-01-24 11:08 | ED PDOC ---
HPI: SOB/CHF/COPD Time Seen by Provider: 01/24/17 10:23 Chief Complaint (Nursing): Shortness Of Breath Chief Complaint (Provider): Shortness of Breath and Cough History Per: Patient History/Exam Limitations: no limitations Onset/Duration Of Symptoms: Days (x2) Current Symptoms Are (Timing): Still Present Associated Symptoms: Fever. denies: Chest Pain Additional Complaint(s): Sunday Leonardo, a 76 year old male, who has a past medical history of lung cancer (10 days post chemotherapy) is brought into the ED by EMS for progressive weakness, shortness of breath and cough x2 days. The patient reports that cough is productive of scant green sputum associated with subjective fever. Denies chest pain. PMD: Dewayne Sanchez - Risk Factors PE Risk Factors: Pos: Active Cancer Past Medical History Vital Signs: Last Vital Signs Temp Pulse Resp 20 01/24/17 10:56 BP Pulse Ox 95 01/24/17 11:15 - Medical History PMH: Arthritis, HTN, Malignancy (Lung CA) Denies: HIV, Chronic Kidney Disease - Surgical History Other surgeries: Knee Replacement - Family History Family History: States: Unknown Family Hx - Home Medications Home Medications: Ambulatory Orders Medication Instructions Recorded Zolpidem [Ambien] 10 mg PO HS PRN 07/10/16 Aluminum Hydroxide/Magnesium 30 ml PO Q6 PRN #120 11/10/16 [Maalox Plus 30 ml] Bacitracin OINT 1 applic TOP DAILY #1 11/10/16 Docusate [Colace] 100 mg PO BID #60 cap 11/10/16 Enalapril Maleate [Vasotec] 20 mg PO DAILY #30 11/10/16 amLODIPine [Norvasc] 5 mg PO DAILY #30 11/10/16 hydroCHLOROthiazide [Hydrodiuril] 25 mg PO DAILY #30 11/10/16 traMADol [Ultram] 50 mg PO BID PRN #10 11/10/16 Aspirin [Adult Low Dose Aspirin EC] 81 mg PO Q12 #60 tablet. 11/11/16 Omeprazole Magnesium [Prilosec Otc] 20 mg PO DAILY 01/12/17 - Allergies Allergies/Adverse Reactions: Allergies Allergy/AdvReac Type Severity Reaction Status Date / Time No Known Allergies Allergy Verified 01/24/17 10:23 Review of Systems ROS Statement: Except As Marked, All Systems Reviewed And Found Negative Constitutional: Positive for: Fever (subjective fever), Weakness Cardiovascular: Negative for: Chest Pain Respiratory: Positive for: Cough (cough productive of scant green sputum), Shortness of Breath Physical Exam - Reviewed Nursing Documentation Reviewed: Yes Vital Signs Reviewed: Yes - Physical Exam Appears: Positive for: Non-toxic, No Acute Distress Head Exam: Positive for: ATRAUMATIC, NORMAL INSPECTION, NORMOCEPHALIC Skin: Positive for: Normal Color, Warm, Dry. Negative for: Rash Eye Exam: Positive for: Normal appearance, EOMI, PERRL. Negative for: Nystagmus ENT: Positive for: Normal ENT Inspection. Negative for: Nasal Congestion, Tonsillar Exudate Neck: Positive for: Normal, Painless ROM, Supple Cardiovascular/Chest: Positive for: Regular Rate, Rhythm, Chest Non Tender. Negative for: Tachycardia Respiratory: Positive for: Rhonchi (scattered ronchi). Negative for: Wheezing, Respiratory Distress Gastrointestinal/Abdominal: Positive for: Normal Exam, Bowel Sounds, Soft. Negative for: Tenderness, Guarding, Rebound Back: Positive for: Normal Inspection. Negative for: L CVA Tenderness, R CVA Tenderness Extremity: Positive for: Swelling (Minimal swelling to left knee; no erythema; swelling to forearm; Swelling and erythema to right second toe.), Other ( puncture wound to right index finger; Erythema and streaking to forearm.). Negative for: Calf Tenderness Neurologic/Psych: Positive for: Alert, Oriented - Laboratory Results Result Diagrams: 01/24/17 10:50 - ECG O2 Sat by Pulse Oximetry: 95 (RA) Pulse Ox Interpretation: Normal Medical Decision Making Medical Decision Makin Initial Impression: 76 y/o male presenting with shortness of breath and cough Initial Plan: * VBG Shock Panel * EKG * CMP * Udip * CBC * D-dimer [COAG] * PT/INR * Chest x-ray * Blood Culture * Reevaluation Scribe Attestation Documented by Yanet Buchanan acting as a scribe for Jimenez Tejeda MD. Provider Attestation All medical record entries made by the Scribe were at my direction and personally dictated by me. I have reviewed the chart and agree that the record accurately reflects my personal performance of the history, physical exam, medical decision making, and the department course for this patient. I have also personally directed, reviewed, and agree with the discharge instructions and disposition. Disposition - Clinical Impression Clinical Impression: Raúl cell carcinoma, Cellulitis, Pneumonia, Immunocompromised state - Patient ED Disposition Is Patient to be Admitted: Yes - Disposition Disposition Time: 11:39 Condition: FAIR Forms: [employer] (Maldivian) - Pt Status Changed To: Hospital Disposition Of: Inpatient - Admit Certification Admit to Inpatient:: After my assessment, the patient will require hospitalization for at least two midnights. This is because of the severity of symptoms shown, intensity of services needed, and/or the medical risk in this patient being treated as an outpatient. - POA Present On Arrival: None
[2017-01-24 11:09] LABS: ALB/GLOB RATIO 1.3 (1.0-2.1); ALKALINE PHOSPHATASE 57 U/L (38-126); ALT/SGPT 24 U/L (21-72); AST/SGOT 21 U/L (17-59); BILIRUBIN,TOTAL 0.6 mg/dl (0.2-1.3); BLOOD UREA NITROGEN 15 mg/dl (9-20); CALCIUM 9.1 mg/dL (8.4-10.2); CARBON DIOXIDE 24 mmol/L (22-30); CHLORIDE 97 mmol/L (98-107); GFR AFRICAN-AMERICAN > 60; GLUCOSE,RANDOM 104 mg/dL (75-110); SODIUM 134 mmol/l (132-148); TOTAL PROTEIN 5.9 G/DL (6.3-8.2)
[2017-01-24 11:10] LABS: POTASSIUM 3.7 MMOL/L (3.6-5.0)
[2017-01-24] MEDS ORDERED: Piperacillin/Tazobact 3.375 GM in Sodium Chloride 0.9% 100 ML IVPB STA (11:20)
--- NOTE | 2017-01-24 11:26 | RAD ---
HISTORY: cough COMPARISON: Chest x-ray performed 11/05/16 TECHNIQUE: Chest, one view. FINDINGS: Examination limited by habitus. Left-sided central venous catheter extends the SVC. LUNGS: Patchy opacities throughout the left prudencio thorax may reflect combination of atelectasis/ infiltrate and or layering pleural effusion. No definite pneumothorax. Re-identified masslike density at the right lung apex measures approximately 6.2 x 2.9 cm. Please note that chest x-ray has limited sensitivity for the detection of pulmonary masses. CARDIOVASCULAR: Enlargement of the cardiomediastinal silhouette. OSSEOUS STRUCTURES: Degenerative changes of the spine. VISUALIZED UPPER ABDOMEN: Unremarkable. OTHER FINDINGS: None. IMPRESSION: Patchy opacities throughout the left prudencio thorax may reflect combination of atelectasis/ infiltrate and or layering pleural effusion. No definite pneumothorax. Re-identified masslike density at the right lung apex measures approximately 6.2 x 2.9 cm. Enlargement of the cardiomediastinal silhouette. Left-sided central venous catheter extends to the SVC.
[2017-01-24 11:34] LABS: EOS % 0.3 % (0.0-4.0); HEMATOCRIT 25.9 % (35.0-51.0); LYMPH # 0.2 K/uL (1.0-4.3); LYMPH % 68.1 % (20.0-40.0); MEAN CELL VOLUME 75.2 fl (80.0-94.0); MEAN CORPUSCULAR HEMOGLOBIN 24.2 pg (27.0-31.0); MEAN CORPUSCULAR HGB CONC 32.1 g/dL (33.0-37.0); MEAN PLATELET VOLUME 7.5 fl (7.2-11.7); MONO # 0.1 K/uL (0.0-0.8); MONO % 31.1 % (0.0-10.0); NEUT % 0.5 % (50.0-75.0); NRBC % 1.5 % (0.0-0.0); PLATELET COUNT 70 K/uL (130-400); RED CELL DISTRIBUTION WIDTH 17.2 % (11.5-14.5)
[2017-01-24 11:38] LABS: WHITE BLOOD COUNT 0.3 K/uL (4.8-10.8)
[2017-01-24] MEDS ORDERED: Piperacillin/Tazobact 3.375 gm Inj IVPB ONE (11:51)
[2017-01-24] MEDS ORDERED: Iodixanol 320 mg/ml 50 ml Sol IV ONE ×2 (12:41→13:43)
[2017-01-24] MEDS ORDERED: Sodium Chloride 0.9% 50 ML IV ONE (12:41)
[2017-01-24] MEDS ORDERED: Vancomycin 1 g Inj ONE (13:10)
[2017-01-24 13:15] LABS: EOSINOPHIL 1 % (0-7); NEUTROPHIL 3 % (42-75); TOTAL CELLS COUNTED 100
[2017-01-24] MEDS ORDERED: Dextrose 5%/0.9% NS 1,000 ML IV ONE (13:17)
--- NOTE | 2017-01-24 14:02 | CP.PCM.CON ---
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 He had recently undergone chemotherapy but did not return for follow-up lab work and presents today with leukopenia, anemia and thrombocytopenia. He was initially diagnosed with [place] cell tumor in February 2010 and found to have metastatic disease to the lungs in January 2016. In February 2016 he underwent lung biopsy which revealed metastatic neuroendocrine tumor. A PET/CT scan was performed and revealed 3 hypermetabolic lesions, one in the right upper lobe, one in the left lower lobe and the left infrahilar region. There was no evidence of distant disease at that time. Chest x-ray at this time shows a large right upper lobe mass density as well as increased left lower lobe mass. Past Patient History - Infectious Disease Hx of Infectious Diseases: None - Tetanus Immunizations Tetanus Immunization: Unknown - Past Medical History & Family History Past Medical History?: Yes Pertinent Family History: Father-coronary artery disease. - Past Social History Smoking Status: Former Smoker Chewing Tobacco Use: No Cigar Use: No Alcohol: Social Drugs: Denies Home Situation {Lives}: Alone - CARDIAC Hx Hypertension: Yes - PULMONARY Hx Asthma: No Hx Pneumonia: No Hx Tuberculosis: No Other/Comment: Neuroendocrine tumor metastatic to both lungs. Malignant pleural effusion, status post chest tube drainage and chemical pleurodesis. - NEUROLOGICAL Hx Neurological Disorder: No - HEENT Other/Comment: Significant hearing loss. 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 - MUSCULOSKELETAL/RHEUMATOLOGICAL Hx Degenerative Joint Disease: Yes - GASTROINTESTINAL Hx Gastritis: Yes - GENITOURINARY/GYNECOLOGICAL Hx Genitourinary Disorders: No - PSYCHIATRIC Hx Anxiety: Yes Hx Substance Use: No Other/Comment: Insomnia. - SURGICAL HISTORY Hx Arthroscopy: Yes (left knee) Other/Comment: Excision of tumor on the scalp. Chest tube placement for pleural effusion followed by pleurodesis. - ANESTHESIA Hx Anesthesia: Yes Hx Anesthesia Reactions: No Hx Malignant Hyperthermia: No Meds Allergies/Adverse Reactions: Allergies Allergy/AdvReac Type Severity Reaction Status Date / Time No Known Allergies Allergy Verified 01/24/17 10:23 - Medications Medications: Current Medications Acetaminophen (Tylenol 325mg Tab) 650 mg PO Q6 PRN PRN Reason: Fever >100.4 F Al Hydrox/Mg Hydrox/Simethicone (Maalox Plus 30 Ml) 30 ml PO Q6 PRN PRN Reason: Indigestion / Heartburn Amlodipine Besylate (Norvasc) 5 mg PO DAILY [facility] Aspirin (Ecotrin) 81 mg PO Q12 [facility] Bacitracin (Bacitracin Oint) 1 applic TOP DAILY [facility] Docusate Sodium (Colace) 100 mg PO BID [facility] Enalapril Maleate (Vasotec) 20 mg PO DAILY [facility] Enoxaparin Sodium (Lovenox) 40 mg SC DAILY [facility] PRN Reason: Protocol Home Med (Omeprazole Magnesium [Prilosec Otc]) 20 mg PO DAILY [facility] Home Med (Zolpidem [Ambien]) 10 mg PO HS PRN PRN Reason: Insomnia Hydrochlorothiazide (Hydrodiuril) 25 mg PO DAILY [facility] Dextrose/Sodium Chloride (Dextrose 5%/0.9% Ns 1000 Ml) 1,000 mls @ 100 mls/hr IV .Q10H ONE Stop: 01/24/17 23:16 Vancomycin HCl 1,000 mg/ (Sodium Chloride) 250 mls @ 250 mls/hr IVPB Q12H [facility] PRN Reason: Protocol Piperacillin Sod/Tazobactam (Sod 3.375 gm/ Sodium Chloride) 100 mls @ 100 mls/ hr IVPB Q6 [facility] PRN Reason: Protocol Morphine Sulfate (Morphine) 1 mg IVP Q4 PRN PRN Reason: Pain, moderate (4-7) Morphine Sulfate (Morphine) 2 mg IVP Q4 PRN PRN Reason: Pain, severe (8-10) Last Admin: 01/24/17 13:17 Dose: 2 mg Ondansetron HCl (Zofran Inj) 4 mg IVP Q6 PRN PRN Reason: Nausea/Vomiting Physical Exam - Additional Findings Additional findings: Well-developed well-nourished male appears chronically ill. No palpable lymphadenopathy. Nares are patent bilaterally. Pharynx is pink and mucous membranes are moist. No exudate. Neck is supple and trachea is midline. No neck vein distention or carotid bruit. Dullness on percussion of the left hemithorax lower one half posteriorly. Asymmetric chest expansion, right more than left. Vocal tactile fremitus is diminished in the lower half of the left hemithorax. Scar of prior thoracotomy left lateral chest wall. Heart sounds are distant and the rhythm is regular. No murmur. Abdomen is soft and nontender without palpable mass. No HSM. Bowel sounds are normal. No dependent edema of the lower extremities. No cyanosis. Peripheral pulses are well felt. Results - Vital Signs Recent Vital Signs: Last Vital Signs Temp 99.5 F 01/24/17 13:20 Pulse 88 01/24/17 10:45 Resp 20 01/24/17 13:20 BP 146/67 01/24/17 10:45 Pulse Ox 95 01/24/17 11:39 - Labs Result Diagrams: 01/26/17 04:30 01/25/17 06:00 Labs: Laboratory Results - last 24 hr 01/24/17 01/24/17 01/24/17 10:31 10:50 10:50 WBC 0.3 L* D RBC 3.44 L Hgb 8.3 L D Hct 25.9 L MCV 75.2 L D MCH 24.2 L MCHC 32.1 L RDW 17.2 H Plt Count 70 L D MPV 7.5 Neut % (Auto) 0.5 L Lymph % (Auto) 68.1 H [place] % (Auto) 31.1 H Eos % (Auto) 0.3 Baso % (Auto) 0.0 Neut # 0.0 L Lymph # 0.2 L [place] # 0.1 Eos # 0.0 Baso # 0.0 Neutrophils % (Manual) 3 L Lymphocytes % (Manual) 72 H Monocytes % (Manual) 24 H Eosinophils % (Manual) 1 Platelet Estimate Markedly decreased L Hypochromasia (manual) Moderate Poikilocytosis (manual Moderate Anisocytosis (manual) Marked Ovalocytes Slight Rouleaux Slight PT INR D-Dimer, Quantitative pO2 31 VBG pH 7.52 H VBG pCO2 33 L VBG HCO3 27.6 VBG Total CO2 27.9 VBG O2 Sat (Calc) 74.7 H VBG Base Excess 4.0 H VBG Potassium 3.6 Sodium 130.0 L 134 Chloride 99.0 97 L Glucose 111 H Lactate 1.2 FiO2 21.0 Potassium 3.7 Carbon Dioxide 24 Anion Gap 17 BUN 15 Creatinine 1.1 Est GFR ( Amer) > 60 Est GFR (Non-Af Amer) > 60 Random Glucose 104 Calcium 9.1 Total Bilirubin 0.6 AST 21 ALT 24 Alkaline Phosphatase 57 Total Protein 5.9 L Albumin 3.3 L Globulin 2.6 Albumin/Globulin Ratio 1.3 Venous Blood Potassium 3.6 01/24/17 10:50 WBC RBC Hgb Hct MCV MCH MCHC RDW Plt Count MPV Neut % (Auto) Lymph % (Auto) [place] % (Auto) Eos % (Auto) Baso % (Auto) Neut # Lymph # [place] # Eos # Baso # Neutrophils % (Manual) Lymphocytes % (Manual) Monocytes % (Manual) Eosinophils % (Manual) Platelet Estimate Hypochromasia (manual) Poikilocytosis (manual Anisocytosis (manual) Ovalocytes Rouleaux PT 15.8 H INR 1.4 H D-Dimer, Quantitative 1156 H pO2 VBG pH VBG pCO2 VBG HCO3 VBG Total CO2 VBG O2 Sat (Calc) VBG Base Excess VBG Potassium Sodium Chloride Glucose Lactate FiO2 Potassium Carbon Dioxide Anion Gap BUN Creatinine Est GFR ( Amer) Est GFR (Non-Af Amer) Random Glucose Calcium Total Bilirubin AST ALT Alkaline Phosphatase Total Protein Albumin Globulin Albumin/Globulin Ratio Venous Blood Potassium Assessment & Plan (1) Pneumonia Assessment and Plan: Patient will be placed in reverse isolation because of leukopenia. Antibiotic therapy for immunosuppressed patient with left lower lobe infiltrate. Oncology consultation. Status: Acute Priority: High (2) Metastatic carcinoma Assessment and Plan: Right upper lobe mass appears relatively unchanged from prior film. Possibility of left lower lobe infiltrate being more manufacturing sales representative of tumor than of infectious process. Status: Chronic Priority: High (3) [place] cell carcinoma Status: Chronic Priority: High
--- NOTE | 2017-01-24 14:15 | CP.PCM.HP ---
History of Present Illness - History of Present Illness History of Present Illness: CC: Cough, lethargy This is a 76 year old male with a past medical history of [place] Cell skin cancer with metastatic spread to lung, who presents to the Emergency Dept with the complaint of fever, dry cough, and lethargy starting 2 days ago. He states that he began having a dry cough on and then developed subjective fever and chills yesterday evening. He has also had decreased po intake for the last 3-4 days. He is 10 days post chemotherapy. His oncologist is Dr. Logan. The patient is also complaining of left knee pain and right 1st digit pain and erythema which started about three days ago. In the ED, the patient was noted to be severely neutropenic and pancytopenic with a white count of 0.3, neutrophil count of 0.0, lymphocyte count of 0.2, Hg of 8.3, HCT of 25.9, platelet count of 70, D-Dimer elevated at 1156. CMP shows hypoproteinemia and hypoalbuminemia; his electrolytes are normal except for a chloride of 97. CT chest is being performed at this time to r/o pulmonary embolism given his elevated D Dimer. CXR shows left sided pneumonia with patchy opacities throughout the left hemithorax reflecting pneumonia and atelectasis. There is also a left sided chemo port noted. The patient is also complaining of right index finger erythema and pain along with left knee erythema, edema, and pain. He was given Vancomycin and zosyn in the ED for broad spectrum empiric therapy. He has also been having occasional nausea and vomiting secondary to the chemotherapy. The patient is to be admitted for further workup and management of pneumonia in the setting of pancytopenia. Present on Admission - Present on Admission Any Indicators Present on Admission: No History of DVT/PE: No History of Uncontrolled Diabetes: No Urinary Catheter: No Review of Systems - Constitutional Constitutional: Anorexia, Chills, Fatigue, Fever, Lethargy - EENT Eyes: absent: Diplopia, Dry Eye, Itchy Eyes Ears: absent: Decreased Hearing, Ear Discharge, Ear Pain Nose/Mouth/Throat: absent: Epistaxis, Nasal Congestion, Sinus Pressure, Dry Mouth - Cardiovascular Cardiovascular: absent: Chest Pain, Chest Pain at Rest, Diaphoresis, Dyspnea - Respiratory Respiratory: Cough, Dyspnea on Exertion, Chest Congestion. absent: Hemoptysis, Pain on Inspiration - Gastrointestinal Gastrointestinal: Nausea, Vomiting. absent: Abdominal Pain, Belching, Coffee Ground Emesis, Dysphagia, Hematochezia, Melena - Musculoskeletal Musculoskeletal: Arthralgias, Joint Swelling. absent: Abnormal Gait Additional comments: Left knee swelling, right index finger swelling. Right 2nd toe chronic ulceration - Integumentary Integumentary: absent: Alopecia, Dry Skin, Photosensitivity - Neurological Neurological: absent: Abnormal Gait, Abnormal Hearing, Abnormal Movements, Burning Sensations - Psychiatric Psychiatric: absent: Confusion, Depression, Difficulty Concentrating - Endocrine Endocrine: Fatigue. absent: Change in Body Appearance, Increase in Ring/Shoe/ Hat Size, Palpitations - Hematologic/Lymphatic Hematologic: As Per HPI Past Patient History - Infectious Disease Hx of Infectious Diseases: None - Tetanus Immunizations Tetanus Immunization: Unknown - Past Medical History & Family History Past Medical History?: Yes - Past Social History Smoking Status: Never Smoked - CARDIAC Hx Cardiac Disorders: Yes - PULMONARY Hx Respiratory Disorders: Yes - NEUROLOGICAL Hx Neurological Disorder: No - HEENT Hx HEENT Problems: No - RENAL Hx Chronic Kidney Disease: No - ENDOCRINE/METABOLIC Hx Endocrine Disorders: No - HEMATOLOGICAL/ONCOLOGICAL Hx Human Immunodeficiency Virus (HIV): No - INTEGUMENTARY Hx Dermatological Problems: No - MUSCULOSKELETAL/RHEUMATOLOGICAL Hx Musculoskeletal Disorders: Yes - GASTROINTESTINAL Hx Gastrointestinal Disorders: No - GENITOURINARY/GYNECOLOGICAL Hx Genitourinary Disorders: No - PSYCHIATRIC Hx Psychophysiologic Disorder: No Hx Substance Use: No - SURGICAL HISTORY Hx Surgeries: Yes Hx Arthroscopy: Yes (left knee) Other/Comment: toe on right foot - ANESTHESIA Hx Anesthesia: Yes Hx Anesthesia Reactions: No Hx Malignant Hyperthermia: No Meds Allergies/Adverse Reactions: Allergies Allergy/AdvReac Type Severity Reaction Status Date / Time No Known Allergies Allergy Verified 01/24/17 10:23 Physical Exam - Constitutional Appears: Toxic, No Acute Distress - Head Exam Head Exam: ATRAUMATIC, NORMAL INSPECTION, NORMOCEPHALIC - Eye Exam Eye Exam: EOMI, Normal appearance, PERRL Pupil Exam: NORMAL ACCOMODATION, PERRL - ENT Exam ENT Exam: Mucous Membranes Dry, Normal Oropharynx - Neck Exam Neck exam: Positive for: Normal Inspection - Respiratory Exam Respiratory Exam: Rhonchi Additional comments: Rhonchi on the right, no wheezes or rales. - Cardiovascular Exam Cardiovascular Exam: REGULAR RHYTHM, RRR, +S1, +S2 - GI/Abdominal Exam GI & Abdominal Exam: Normal Bowel Sounds, Soft. absent: Tenderness Results - Vital Signs Recent Vital Signs: Last Vital Signs Temp 99.5 F 01/24/17 13:20 Pulse 88 01/24/17 10:45 Resp 20 01/24/17 13:20 BP 146/67 01/24/17 10:45 Pulse Ox 95 01/24/17 11:39 - Labs Result Diagrams: 01/24/17 10:50 01/24/17 10:50 Labs: Laboratory Results - last 24 hr 01/24/17 01/24/17 01/24/17 10:31 10:50 10:50 WBC 0.3 L* D RBC 3.44 L Hgb 8.3 L D Hct 25.9 L MCV 75.2 L D MCH 24.2 L MCHC 32.1 L RDW 17.2 H Plt Count 70 L D MPV 7.5 Neut % (Auto) 0.5 L Lymph % (Auto) 68.1 H [place] % (Auto) 31.1 H Eos % (Auto) 0.3 Baso % (Auto) 0.0 Neut # 0.0 L Lymph # 0.2 L [place] # 0.1 Eos # 0.0 Baso # 0.0 Neutrophils % (Manual) 3 L Lymphocytes % (Manual) 72 H Monocytes % (Manual) 24 H Eosinophils % (Manual) 1 Platelet Estimate Markedly decreased L Hypochromasia (manual) Moderate Poikilocytosis (manual Moderate Anisocytosis (manual) Marked Ovalocytes Slight Rouleaux Slight PT INR D-Dimer, Quantitative pO2 31 VBG pH 7.52 H VBG pCO2 33 L VBG HCO3 27.6 VBG Total CO2 27.9 VBG O2 Sat (Calc) 74.7 H VBG Base Excess 4.0 H VBG Potassium 3.6 Sodium 130.0 L 134 Chloride 99.0 97 L Glucose 111 H Lactate 1.2 FiO2 21.0 Potassium 3.7 Carbon Dioxide 24 Anion Gap 17 BUN 15 Creatinine 1.1 Est GFR ( Amer) > 60 Est GFR (Non-Af Amer) > 60 Random Glucose 104 Calcium 9.1 Total Bilirubin 0.6 AST 21 ALT 24 Alkaline Phosphatase 57 Total Protein 5.9 L Albumin 3.3 L Globulin 2.6 Albumin/Globulin Ratio 1.3 Venous Blood Potassium 3.6 01/24/17 10:50 WBC RBC Hgb Hct MCV MCH MCHC RDW Plt Count MPV Neut % (Auto) Lymph % (Auto) [place] % (Auto) Eos % (Auto) Baso % (Auto) Neut # Lymph # [place] # Eos # Baso # Neutrophils % (Manual) Lymphocytes % (Manual) Monocytes % (Manual) Eosinophils % (Manual) Platelet Estimate Hypochromasia (manual) Poikilocytosis (manual Anisocytosis (manual) Ovalocytes Rouleaux PT 15.8 H INR 1.4 H D-Dimer, Quantitative 1156 H pO2 VBG pH VBG pCO2 VBG HCO3 VBG Total CO2 VBG O2 Sat (Calc) VBG Base Excess VBG Potassium Sodium Chloride Glucose Lactate FiO2 Potassium Carbon Dioxide Anion Gap BUN Creatinine Est GFR ( Amer) Est GFR (Non-Af Amer) Random Glucose Calcium Total Bilirubin AST ALT Alkaline Phosphatase Total Protein Albumin Globulin Albumin/Globulin Ratio Venous Blood Potassium Assessment & Plan - Assessment and Plan (Free Text) Assessment: ASSESSMENT - Left sided multilobular pneumonia - Severe neutropenia/pancytopenia secondary to chemotherapy - [place] cell cancer with metastatic spread to liver - Right 1st digit cellulitis - Left knee cellulitis - Hypertension, chronic - PLAN - Admit to telemetry floor - consultation with Dr. Rivera, ID - Consultation with Dr. Logan, Heme/onc - Consultation with Dr. Rodriguez, pulmonology - Continue Vancomycin/Zosyn for empiric therapy - NPO status until swallow eval, then advance diet as tolerated - D5 NS at 100 cc/hour for hydration - Zofran PRN for N/V - ASA 81 mg po q 1 hours - Enalapril - Estimated length of stay > 2 midnights
--- NOTE | 2017-01-24 17:00 | CT ---
CTA chest PE protocol Indication: Elevated D-dimer, cancer metastases to lung Technique: Contiguous axial images were obtained through the chest with intravenous contrast enhancement. Sagittal and coronal reconstructions were generated and reviewed. This CT exam was performed using 1 or more of the falling dose reduction techniques: Automated exposure control, adjustment of the MAA and/or kV according to patient size, and/or use of iterative reconstruction technique. IV Contrast: 99 cc Visipaque 320 Radiation dose (DLP): 449.03 MGy-cm. Comparison: Chest x-ray performed earlier the same day. Findings: Left-sided MediPort extends the SVC. Visualized portions of the inferior thyroid gland appear unremarkable. The mediastinal and hilar vascular structures appear within normal limits. The heart appears within normal limits of size. Sub cm mediastinal lymph nodes, nonspecific. Coronary artery calcifications. There is suboptimal opacification of the pulmonary arteries due to missed bolus of the intravenous contrast limiting evaluation for pulmonary embolus. Given this limitation, there are no visible intraluminal filling defects within the central pulmonary arteries to suggest central pulmonary embolism. 5.5 x 3.4 cm pleural based right apical mass consistent with malignant neoplasm. Small to moderate pleural effusion with regions of suspected loculation involving the left mid to lower lung zones. Pleural based consolidation and/or soft tissue also noted along the left prudencio thorax ; metastases are not excluded. Limited visualized portions of the upper abdomen appear grossly unremarkable. Fluid within the distal esophagus consistent with gastroesophageal reflux. Degenerative changes of the spine. Impression: Left-sided MediPort extends the SVC. There is suboptimal opacification of the pulmonary arteries due to missed bolus of the intravenous contrast limiting evaluation for pulmonary embolus. Given this limitation, there are no visible intraluminal filling defects within the central pulmonary arteries to suggest central pulmonary embolism. 5.5 x 3.4 cm pleural based right apical mass consistent with malignant neoplasm. Small to moderate left pleural effusion with regions of suspected loculation involving the left mid to lower lung zones. Pleural based consolidation and/or soft tissue also noted along the left prudencio thorax ; metastases are not excluded. Fluid within the distal esophagus consistent with gastroesophageal reflux. Findings discussed with Dr. Arshad on 01/24/17 at 456 pm.
[2017-01-24] MEDS ORDERED: Alum-Mag Hydrox-Simethicone Susp (30 mL) ONE (17:58)
[2017-01-24] MEDS: Alum-Mag Hydrox-Simethicone Susp (30 mL) PO PRN (18:00)
[2017-01-24] MEDS: Piperacillin/Tazobact 3.375 GM in Sodium Chloride 0.9% 100 ML IVPB SCH (21:31)
[2017-01-25] MEDS: Piperacillin/Tazobact 3.375 GM in Sodium Chloride 0.9% 100 ML IVPB SCH ×4 (06:08→22:27)
[2017-01-25 07:40] LABS: BLOOD UREA NITROGEN 21 mg/dl (9-20); CALCIUM 8.4 mg/dL (8.4-10.2); CARBON DIOXIDE 26 mmol/L (22-30); CHLORIDE 98 mmol/L (98-107); GFR AFRICAN-AMERICAN > 60; GLUCOSE,RANDOM 90 mg/dL (75-110); POTASSIUM 3.7 MMOL/L (3.6-5.0); SODIUM 134 mmol/l (132-148)
[2017-01-25 07:55] LABS: BASO % 0.1 % (0.0-2.0); EOS % 0.4 % (0.0-4.0); HEMATOCRIT 24.7 % (35.0-51.0); LYMPH # 0.2 K/uL (1.0-4.3); LYMPH % 42.3 % (20.0-40.0); MEAN CELL VOLUME 75.3 fl (80.0-94.0); MEAN CORPUSCULAR HEMOGLOBIN 24.9 pg (27.0-31.0); MEAN CORPUSCULAR HGB CONC 33.1 g/dL (33.0-37.0); MEAN PLATELET VOLUME 7.7 fl (7.2-11.7); MONO # 0.3 K/uL (0.0-0.8); MONO % 48.4 % (0.0-10.0); NEUT % 8.8 % (50.0-75.0); NRBC % 0.1 % (0.0-0.0); PLATELET COUNT 90 K/uL (130-400); RED CELL DISTRIBUTION WIDTH 17.5 % (11.5-14.5)
[2017-01-25] MEDS ORDERED: Dextrose 5%/0.9% NS 1,000 ML IV SCH (08:00)
[2017-01-25 08:06] LABS: WHITE BLOOD COUNT 0.6 K/uL (4.8-10.8)
[2017-01-25] MEDS ORDERED: OMEPRAZOLE MAGNESIUM 20 MG PO SCH (09:00)
[2017-01-25] MEDS ORDERED: Enoxaparin 40 mg Syringe SC SCH (09:00)
--- NOTE | 2017-01-25 09:38 | CP.PCM.CON ---
History of Present Illness - History of Present Illness History of Present Illness: This is a 76 yrs old male who was diagnosed to have a maricel cell cancer in 2004. He had received carboplatin followed by RT and he was good until 1 yr ago when he stable until one yr ago when he started getting some lung nodules. he was started on keytrudafor about 6 months. He again started to have a lot of pleural effusion, and about 8 liters was drained from the pleural space. It was decided to give him cisplatin and etoposide. He tolerated the chemo well without any side effects. he was to come back to the [facility] for a blood test 5 days ago, but did not come. His wbc dropped to 0.3, he was short of breath and was brought to the ER where a chest x ray did not show enough pleural fluids for a thortacentesis.He has been started on antibiotics and granix. Past Patient History - Infectious Disease Hx of Infectious Diseases: None - Tetanus Immunizations Tetanus Immunization: Unknown - Past Medical History & Family History Past Medical History?: Yes - Past Social History Smoking Status: Never Smoked - CARDIAC Hx Cardiac Disorders: Yes Hx Hypertension: Yes - PULMONARY Hx Respiratory Disorders: Yes Hx Lung Cancer: Yes - NEUROLOGICAL Hx Neurological Disorder: No - HEENT Hx HEENT Problems: Yes Other/Comment: Hard of Hearing - RENAL Hx Chronic Kidney Disease: No - ENDOCRINE/METABOLIC Hx Endocrine Disorders: No - HEMATOLOGICAL/ONCOLOGICAL Hx Blood Disorders: No Hx Human Immunodeficiency Virus (HIV): No - INTEGUMENTARY Hx Dermatological Problems: No - MUSCULOSKELETAL/RHEUMATOLOGICAL Hx Musculoskeletal Disorders: Yes Hx Arthritis: Yes Hx Falls: No - GASTROINTESTINAL Hx Gastrointestinal Disorders: No - GENITOURINARY/GYNECOLOGICAL Hx Genitourinary Disorders: No - PSYCHIATRIC Hx Psychophysiologic Disorder: No Hx Substance Use: No - SURGICAL HISTORY Hx Surgeries: Yes Hx Arthroscopy: Yes (left knee) Other/Comment: toe on right foot - ANESTHESIA Hx Anesthesia: Yes Hx Anesthesia Reactions: No Hx Malignant Hyperthermia: No Meds Allergies/Adverse Reactions: Allergies Allergy/AdvReac Type Severity Reaction Status Date / Time No Known Allergies Allergy Verified 01/24/17 10:23 - Medications Medications: Current Medications Acetaminophen (Tylenol 325mg Tab) 650 mg PO Q6 PRN PRN Reason: Fever >100.4 F Al Hydrox/Mg Hydrox/Simethicone (Maalox Plus 30 Ml) 30 ml PO Q6 PRN PRN Reason: Indigestion / Heartburn Last Admin: 01/24/17 18:00 Dose: 30 ml Amlodipine Besylate (Norvasc) 5 mg PO DAILY COUNTS INCLUDE 234 BEDS AT THE [facility] Aspirin (Ecotrin) 81 mg PO Q12 COUNTS INCLUDE 234 BEDS AT THE [facility] Last Admin: 01/24/17 21:33 Dose: 81 mg Bacitracin (Bacitracin Oint) 1 applic TOP DAILY COUNTS INCLUDE 234 BEDS AT THE [facility] Docusate Sodium (Colace) 100 mg PO BID COUNTS INCLUDE 234 BEDS AT THE [facility] Last Admin: 01/24/17 17:41 Dose: 100 mg Enalapril Maleate (Vasotec) 20 mg PO DAILY COUNTS INCLUDE 234 BEDS AT THE [facility] Enoxaparin Sodium (Lovenox) 40 mg SC DAILY COUNTS INCLUDE 234 BEDS AT THE [facility] PRN Reason: Protocol Home Med (Omeprazole Magnesium [Prilosec Otc]) 20 mg PO DAILY COUNTS INCLUDE 234 BEDS AT THE [facility] Home Med (Zolpidem [Ambien]) 10 mg PO HS PRN PRN Reason: Insomnia Hydrochlorothiazide (Hydrodiuril) 25 mg PO DAILY COUNTS INCLUDE 234 BEDS AT THE [facility] Vancomycin HCl 1 gm/ Sodium (Chloride) 250 mls @ 250 mls/hr IVPB Q12H COUNTS INCLUDE 234 BEDS AT THE [facility] PRN Reason: Protocol Last Admin: 01/25/17 08:55 Dose: 250 mls/hr Piperacillin Sod/Tazobactam (Sod 3.375 gm/ Sodium Chloride) 100 mls @ 100 mls/ hr IVPB Q6 COUNTS INCLUDE 234 BEDS AT THE [facility] PRN Reason: Protocol Last Admin: 01/25/17 06:08 Dose: 100 mls/hr Dextrose/Sodium Chloride (Dextrose 5%/0.9% Ns 1000 Ml) 1,000 mls @ 75 mls/hr IV .[id number] COUNTS INCLUDE 234 BEDS AT THE [facility] Stop: 01/25/17 21:19 Last Admin: 01/25/17 08:53 Dose: 75 mls/hr Morphine Sulfate (Morphine) 1 mg IVP Q4 PRN PRN Reason: Pain, moderate (4-7) Morphine Sulfate (Morphine) 2 mg IVP Q4 PRN PRN Reason: Pain, severe (8-10) Last Admin: 01/24/17 13:17 Dose: 2 mg Ondansetron HCl (Zofran Inj) 4 mg IVP Q6 PRN PRN Reason: Nausea/Vomiting Zolpidem Tartrate (Ambien) 10 mg PO HS PRN PRN Reason: Insomnia Physical Exam - Additional Findings Additional findings: Physical exam; Pt is ill looking, but is afebrile neck supple, no adenopathy Chest; brearh sounds decreased bilaterally, left more than right Heart; RSR,no murmur Abd; Soft, no mass. no hepat/splenomegaly Results - Vital Signs Recent Vital Signs: Last Vital Signs Temp 97.9 F 01/25/17 08:00 Pulse 115 H 01/25/17 08:00 Resp 18 01/25/17 08:00 BP 104/57 L 01/25/17 08:00 Pulse Ox 100 01/25/17 08:00 - Labs Result Diagrams: 01/25/17 07:00 01/25/17 06:00 Labs: Laboratory Results - last 24 hr 01/24/17 01/24/17 01/24/17 10:31 10:50 10:50 WBC 0.3 L* D RBC 3.44 L Hgb 8.3 L D Hct 25.9 L MCV 75.2 L D MCH 24.2 L MCHC 32.1 L RDW 17.2 H Plt Count 70 L D MPV 7.5 Neut % (Auto) 0.5 L Lymph % (Auto) 68.1 H Orange % (Auto) 31.1 H Eos % (Auto) 0.3 Baso % (Auto) 0.0 Neut # 0.0 L Lymph # 0.2 L Orange # 0.1 Eos # 0.0 Baso # 0.0 Neutrophils % (Manual) 3 L Lymphocytes % (Manual) 72 H Monocytes % (Manual) 24 H Eosinophils % (Manual) 1 Platelet Estimate Markedly decreased L Hypochromasia (manual) Moderate Poikilocytosis (manual Moderate Anisocytosis (manual) Marked Ovalocytes Slight Rouleaux Slight PT INR D-Dimer, Quantitative pO2 31 VBG pH 7.52 H VBG pCO2 33 L VBG HCO3 27.6 VBG Total CO2 27.9 VBG O2 Sat (Calc) 74.7 H VBG Base Excess 4.0 H VBG Potassium 3.6 Sodium 130.0 L 134 Chloride 99.0 97 L Glucose 111 H Lactate 1.2 FiO2 21.0 Potassium 3.7 Carbon Dioxide 24 Anion Gap 17 BUN 15 Creatinine 1.1 Est GFR ( Amer) > 60 Est GFR (Non-Af Amer) > 60 Random Glucose 104 Calcium 9.1 Total Bilirubin 0.6 AST 21 ALT 24 Alkaline Phosphatase 57 Total Protein 5.9 L Albumin 3.3 L Globulin 2.6 Albumin/Globulin Ratio 1.3 Venous Blood Potassium 3.6 01/24/17 01/25/17 01/25/17 10:50 06:00 07:00 WBC 0.6 L* D RBC 3.28 L Hgb 8.2 L Hct 24.7 L MCV 75.3 L MCH 24.9 L MCHC 33.1 RDW 17.5 H Plt Count 90 L D MPV 7.7 Neut % (Auto) 8.8 L Lymph % (Auto) 42.3 H Orange % (Auto) 48.4 H Eos % (Auto) 0.4 Baso % (Auto) 0.1 Neut # 0.0 L Lymph # 0.2 L Orange # 0.3 Eos # 0.0 Baso # 0.0 Neutrophils % (Manual) Lymphocytes % (Manual) Monocytes % (Manual) Eosinophils % (Manual) Platelet Estimate Hypochromasia (manual) Poikilocytosis (manual Anisocytosis (manual) Ovalocytes Rouleaux PT 15.8 H INR 1.4 H D-Dimer, Quantitative 1156 H pO2 VBG pH VBG pCO2 VBG HCO3 VBG Total CO2 VBG O2 Sat (Calc) VBG Base Excess VBG Potassium Sodium 134 Chloride 98 Glucose Lactate FiO2 Potassium 3.7 Carbon Dioxide 26 Anion Gap 14 BUN 21 H Creatinine 1.3 Est GFR ( Amer) > 60 Est GFR (Non-Af Amer) 53 Random Glucose 90 Calcium 8.4 Total Bilirubin AST ALT Alkaline Phosphatase Total Protein Albumin Globulin Albumin/Globulin Ratio Venous Blood Potassium Assessment & Plan - Assessment and Plan (Free Text) Assessment: Impression. maricel cell carcinomaon chemotherapy Neutropenia and thrombocytopenia secondary to chemotherapy Plan: Plan; hydration, granix. antibodies and antifungals. reverse isolation until the ANC comes to above 1500
[2017-01-25 09:48] LABS: NEUTROPHIL 6 % (42-75); TOTAL CELLS COUNTED 100
[2017-01-25 09:49] LABS: GIANT PLATELETS PRESENT
--- NOTE | 2017-01-25 10:20 | CP.PCM.PN ---
Subjective - Date & Time of Evaluation Date of Evaluation: 01/25/17 Time of Evaluation: 09:45 - Subjective Subjective: The patient states that overall he feels better and less lethargic. He says that he is hungry today and would like to try eating some clear liquids. No acute events overnight as per nursing staff. He continues to have persistent pain and swelling to the left knee, although it is less erythematous. His pain and edema to his right index finger has minimally improved. Patient denies any SOB, chest pain, lethargy, cough, congestion, nausea, vomiting, diarrhea. Objective - Vital Signs/Intake and Output Vital Signs (last 24 hours): Temp Pulse Resp BP Pulse Ox 97.9 F 115 H 18 104/57 L 100 01/25/17 08:00 01/25/17 08:00 01/25/17 08:00 01/25/17 08:00 01/25/17 08:00 - Medications Medications: Current Medications Acetaminophen (Tylenol 325mg Tab) 650 mg PO Q6 PRN PRN Reason: Fever >100.4 F Al Hydrox/Mg Hydrox/Simethicone (Maalox Plus 30 Ml) 30 ml PO Q6 PRN PRN Reason: Indigestion / Heartburn Last Admin: 01/24/17 18:00 Dose: 30 ml Amlodipine Besylate (Norvasc) 5 mg PO DAILY [facility] Aspirin (Ecotrin) 81 mg PO Q12 [facility] Last Admin: 01/24/17 21:33 Dose: 81 mg Bacitracin (Bacitracin Oint) 1 applic TOP DAILY [facility] Docusate Sodium (Colace) 100 mg PO BID [facility] Last Admin: 01/24/17 17:41 Dose: 100 mg Enalapril Maleate (Vasotec) 20 mg PO DAILY [facility] Enoxaparin Sodium (Lovenox) 40 mg SC DAILY [facility] PRN Reason: Protocol Home Med (Omeprazole Magnesium [Prilosec Otc]) 20 mg PO DAILY [facility] Home Med (Zolpidem [Ambien]) 10 mg PO HS PRN PRN Reason: Insomnia Hydrochlorothiazide (Hydrodiuril) 25 mg PO DAILY [facility] Vancomycin HCl 1 gm/ Sodium (Chloride) 250 mls @ 250 mls/hr IVPB Q12H [facility] PRN Reason: Protocol Last Admin: 01/25/17 08:55 Dose: 250 mls/hr Piperacillin Sod/Tazobactam (Sod 3.375 gm/ Sodium Chloride) 100 mls @ 100 mls/ hr IVPB Q6 [facility] PRN Reason: Protocol Last Admin: 01/25/17 06:08 Dose: 100 mls/hr Dextrose/Sodium Chloride (Dextrose 5%/0.9% Ns 1000 Ml) 1,000 mls @ 75 mls/hr IV .[id number] [facility] Stop: 01/25/17 21:19 Last Admin: 01/25/17 08:53 Dose: 75 mls/hr Morphine Sulfate (Morphine) 1 mg IVP Q4 PRN PRN Reason: Pain, moderate (4-7) Morphine Sulfate (Morphine) 2 mg IVP Q4 PRN PRN Reason: Pain, severe (8-10) Last Admin: 01/24/17 13:17 Dose: 2 mg Ondansetron HCl (Zofran Inj) 4 mg IVP Q6 PRN PRN Reason: Nausea/Vomiting Zolpidem Tartrate (Ambien) 10 mg PO HS PRN PRN Reason: Insomnia - Labs Labs: 01/25/17 07:00 01/25/17 06:00 PT 15.8 Seconds (9.8-13.1) H 01/24/17 10:50 INR 1.4 (0.9-1.2) H 01/24/17 10:50 - Additional Findings Additional findings: GENERAL: The patient is a well-developed, well-nourished male in no apparent distress. He is alert and oriented x3. HEENT: Head is normocephalic and atraumatic. Extraocular muscles are intact. Pupils are equal, round, and reactive to light and accommodation. Nares appeared normal. Mouth is well hydrated and without lesions. Mucous membranes are moist. NECK: Supple. No carotid bruits.~ No lymphadenopathy or thyromegaly. LUNGS: mild rales to left lung. No wheezing or rhonchi. HEART: Regular rate and rhythm without murmur. ABDOMEN: Soft, nontender, and nondistended.~ Positive bowel sounds.~ No hepatosplenomegaly was noted. EXTREMITIES: Left knee nonpitting edema, mild tenderness to palpation, no erythema or fluctuance. Again noted right index finger tenderness and small amount of edema w/o fluctuance. No cyanosis, clubbing, rash. NEUROLOGIC: Cranial nerves II through XII are grossly intact. PSYCHIATRIC: Flat affect, but denies suicidal or homicidal ideations. SKIN: Ulceration of the right second toe. lesions as above. No clubbing or cyanosis. 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 Pain is improved. Patient remains pancytopenic/neutropenic - Closely monitor vitals; currently patient remains afebrile. - Reverse isolation - consultation with Dr. Rivera, ID - Consultation with Dr. Logan, Heme/onc- Has started Granix - Consultation with Dr. Rodriguez, pulmonology, respiratory cultures (legionella) pending - Continue Vancomycin/Zosyn for empiric therapy - Advance diet to clears, continue to advance as tolerated. - D5 NS at 75 cc/hour for hydration - Zofran PRN for N/V - ASA 81 mg po daily - Enalapril - Continue to trend CBC - Await cultures
--- NOTE | 2017-01-25 14:22 | CP.PCM.CON ---
History of Present Illness - History of Present Illness History of Present Illness: 76 yrs old male who was diagnosed to have a mar[place]el cell skin cancer in 2004. He had received carboplatin followed by RT until 1 yr ago when he started getting lung nodules. dx as metastatic disease He was then started on keytruda but after 6 mos he started to having pleural effusions requiring drainage , He was then started on cisplatin and etoposide recently but developed severe neutropenia and didnt show for blood work . He presented to the Emergency Dept complaints of fever, dry cough, and lethargy as well as decreased po intake for the last 3-4 days. On admission the patient was complaining of left knee pain and right index finger pain and swelling and CXR shows left sided pneumonia He has hx of left TKR approx 3-4 months ago Review of Systems - Constitutional Constitutional: As Per HPI, Anorexia, Chills, Fever - EENT Eyes: absent: As Per HPI, Blind Spots, Blurred Vision, Change in Vision, Decreased Night Vision, Diplopia, Discharge, Dry Eye, Exophthalmos, Floaters, Irritation, Itchy Eyes, Loss of Peripheral Vision, Pain, Photophobia, Requires Corrective Lenses, Sees Flashes, Spots in Vision, Tunnel Vision, Other Visual Disturbances, Loss of Vision, Other Ears: absent: As Per HPI, Decreased Hearing, Ear Discharge, Ear Pain, Tinnitus, Abnormal Hearing, Disequilibrium, Dizziness, Other Nose/Mouth/Throat: absent: As Per HPI, Epistaxis, Nasal Congestion, Nasal Discharge, Nasal Obstruction, Nasal Trauma, Nose Pain, Post Nasal Drip, Sinus Pain, Sinus Pressure, Bleeding Gums, Change in Voice, Dental Pain, Dry Mouth, Dysphagia, Halitosis, Hoarsness, Lip Swelling, Mouth Lesions, Mouth Pain, Odynophagia, Sore Throat, Throat Swelling, Tongue Swelling, Facial Pain, Neck Pain, Neck Mass, Other - Cardiovascular Cardiovascular: absent: As Per HPI, Acrocyanosis, Chest Pain, Chest Pain at Rest , Chest Pain with Activity, Claudication, Diaphoresis, Dyspnea, Dyspnea on Exertion, Edema, Irregular Heart Rhythm, Pain Radiating to Arm/Neck/Jaw, Leg Edema, Leg Ulcers, Lightheadedness, Orthopnea, Palpitations, Paroxysmal Nocturnal Dyspnea, Pedal Edema, Radiating Pain, Rapid Heart Rate, Slow Heart Rate, Syncope, Other - Respiratory Respiratory: As Per HPI, Cough. absent: Hemoptysis - Gastrointestinal Gastrointestinal: absent: As Per HPI, Abdominal Pain, Belching, Bloating, Change in Bowel Habits, Change in Stool Character, Coffee Ground Emesis, Constipation, Cramping, Diarrhea, Dyspepsia, Dysphagia, Early Satiety, Excessive Flatus, Fecal Incontinence, Heartburn, Hematemesis, Hematochezia, Loose Stools, Melena, Nausea, Odynophagia, Temesmus, Vomiting, Other - Genitourinary Genitourinary: absent: As Per HPI, Change in Urinary Stream, Difficulty Urinating, Dysuria, Flank Pain, Hematuria, Pyuria, Nocturia, Urinary Incontinence, Urinary Frequency, Urinary Hesitance, Urinary Urgency, Voiding Freq/Small Amts, Freq UTI, Hx Renal/Bladder Calculi, Hx /Renal Surgery, Bladder Distension, Other - Musculoskeletal Musculoskeletal: As Per HPI - Integumentary Integumentary: As Per HPI - Neurological Neurological: absent: As Per HPI, Abnormal Gait, Abnormal Hearing, Abnormal Movements, Abnormal Speech, Behavioral Changes, Burning Sensations, Confusion, Convulsions, Disequilibrium, Dizziness, Numbness, Focal Weakness, Frequent Falls , Headaches, Lack of Coordination, Loss of Vision, Memory Loss, Paresthesias, Radicular Pain, Restless Legs, Sensory Deficit, Syncope, Tingling, Tremor, Vertigo, Weakness, Other Visual Disturbances, Other - Psychiatric Psychiatric: absent: As Per HPI, Abnormal Sleep Pattern, Anhedonia, Anxiety, Auditory Hallucinations, Behavioral Changes, Change in Appetite, Change in Libido, Confusion, Depression, Difficulty Concentrating, Hallucinations, Homicidal Ideation, Hopelessness, Irritability, Memory Loss, Mood Swings, Panic Attacks, Paranoia, Suicidal Ideation, Visual Hallucinations, Tactile Hallucinations, Other - Endocrine Endocrine: absent: As Per HPI, Change in Body Appearance, Change in Libido, Cold Intolorance, Deepening of Voice, Excessive Sweating, Fatigue, Flushing, Heat Intolorance, Increase in Ring/Shoe/Hat Size, Palpitations, Polydipsia, Polyphagia, Polyuria, Other - Hematologic/Lymphatic Hematologic: As Per HPI Past Patient History - Infectious Disease Hx of Infectious Diseases: None - Tetanus Immunizations Tetanus Immunization: Unknown - Past Medical History & Family History Past Medical History?: Yes - Past Social History Smoking Status: Never Smoked - CARDIAC Hx Cardiac Disorders: Yes Hx Hypertension: Yes - PULMONARY Hx Respiratory Disorders: Yes Hx Lung Cancer: Yes - NEUROLOGICAL Hx Neurological Disorder: No - HEENT Hx HEENT Problems: Yes Other/Comment: Hard of Hearing - RENAL Hx Chronic Kidney Disease: No - ENDOCRINE/METABOLIC Hx Endocrine Disorders: No - HEMATOLOGICAL/ONCOLOGICAL Hx Blood Disorders: No Hx Human Immunodeficiency Virus (HIV): No - INTEGUMENTARY Hx Dermatological Problems: No - MUSCULOSKELETAL/RHEUMATOLOGICAL Hx Musculoskeletal Disorders: Yes Hx Arthritis: Yes Hx Falls: No - GASTROINTESTINAL Hx Gastrointestinal Disorders: No - GENITOURINARY/GYNECOLOGICAL Hx Genitourinary Disorders: No - PSYCHIATRIC Hx Psychophysiologic Disorder: No Hx Substance Use: No - SURGICAL HISTORY Hx Surgeries: Yes Hx Arthroscopy: Yes (left knee) Other/Comment: toe on right foot - ANESTHESIA Hx Anesthesia: Yes Hx Anesthesia Reactions: No Hx Malignant Hyperthermia: No Meds Allergies/Adverse Reactions: Allergies Allergy/AdvReac Type Severity Reaction Status Date / Time No Known Allergies Allergy Verified 01/24/17 10:23 - Medications Medications: Current Medications Acetaminophen (Tylenol 325mg Tab) 650 mg PO Q6 PRN PRN Reason: Fever >100.4 F Al Hydrox/Mg Hydrox/Simethicone (Maalox Plus 30 Ml) 30 ml PO Q6 PRN PRN Reason: Indigestion / Heartburn Last Admin: 01/24/17 18:00 Dose: 30 ml Amlodipine Besylate (Norvasc) 5 mg PO DAILY [facility] Last Admin: 01/25/17 10:09 Dose: Not Given Aspirin (Ecotrin) 81 mg PO Q12 [facility] [place] Last Admin: 01/25/17 10:06 Dose: 81 mg Bacitracin (Bacitracin Oint) 1 applic TOP DAILY [facility] [place] Docusate Sodium (Colace) 100 mg PO BID [facility] [place] Last Admin: 01/25/17 10:06 Dose: 100 mg Enalapril Maleate (Vasotec) 20 mg PO DAILY [facility] [place] Hydrochlorothiazide (Hydrodiuril) 25 mg PO DAILY [facility] Last Admin: 01/25/17 10:07 Dose: 25 mg Vancomycin HCl 1 gm/ Sodium (Chloride) 250 mls @ 250 mls/hr IVPB Q12H [facility] PRN Reason: Protocol Last Admin: 01/25/17 08:55 Dose: 250 mls/hr Piperacillin Sod/Tazobactam (Sod 3.375 gm/ Sodium Chloride) 100 mls @ 100 mls/ hr IVPB Q6 [facility] PRN Reason: Protocol Last Admin: 01/25/17 06:08 Dose: 100 mls/hr Dextrose/Sodium Chloride (Dextrose 5%/0.9% Ns 1000 Ml) 1,000 mls @ 75 mls/hr IV .[id number] [facility] [place] Stop: 01/25/17 21:19 Last Admin: 01/25/17 08:53 Dose: 75 mls/hr Morphine Sulfate (Morphine) 1 mg IVP Q4 PRN PRN Reason: Pain, moderate (4-7) Morphine Sulfate (Morphine) 2 mg IVP Q4 PRN PRN Reason: Pain, severe (8-10) Last Admin: 01/24/17 13:17 Dose: 2 mg Ondansetron HCl (Zofran Inj) 4 mg IVP Q6 PRN PRN Reason: Nausea/Vomiting Pantoprazole Sodium (Protonix Ec Tab) 40 mg PO DAILY [facility] [place] Zolpidem Tartrate (Ambien) 5 mg PO HS PRN PRN Reason: Insomnia Physical Exam - Constitutional Appears: Non-toxic, Cachectic, Chronically Ill - Head Exam Head Exam: ATRAUMATIC, NORMAL INSPECTION, NORMOCEPHALIC - Eye Exam Eye Exam: PERRL. absent: Scleral icterus - ENT Exam ENT Exam: Mucous Membranes Dry, Normal External Ear Exam - Neck Exam Neck exam: Negative for: Lymphadenopathy, Thyromegaly - Respiratory Exam Respiratory Exam: Decreased Breath Sounds, Rales, Rhonchi - Cardiovascular Exam Cardiovascular Exam: REGULAR RHYTHM, +S1, +S2 - GI/Abdominal Exam GI & Abdominal Exam: Diminished Bowel Sounds, Soft. absent: Tenderness - Rectal Exam Rectal Exam: Deferred - Exam Exam: NORMAL INSPECTION - Extremities Exam Extremities exam: Positive for: pedal edema, tenderness. Negative for: calf tenderness, pedal pulses present Additional comments: left knee erytema / swelling No definite effusion swelling pain right index finger - Back Exam Back exam: absent: CVA tenderness (L), CVA tenderness (R) - Neurological Exam Neurological exam: Alert, CN II-XII Intact, Oriented x3, Reflexes Normal - Psychiatric Exam Psychiatric exam: Normal Mood - Skin Skin Exam: Dry Results - Vital Signs Recent Vital Signs: Last Vital Signs Temp 98.2 F 01/25/17 12:00 Pulse 90 01/25/17 12:00 Resp 18 01/25/17 12:00 BP 97/58 L 01/25/17 12:00 Pulse Ox 100 01/25/17 12:00 - Labs Result Diagrams: 01/25/17 07:00 01/25/17 06:00 Labs: Laboratory Results - last 24 hr 01/24/17 01/25/17 01/25/17 17:20 06:00 07:00 WBC 0.6 L* D RBC 3.28 L Hgb 8.2 L Hct 24.7 L MCV 75.3 L MCH 24.9 L MCHC 33.1 RDW 17.5 H Plt Count 90 L D MPV 7.7 Neut % (Auto) 8.8 L Lymph % (Auto) 42.3 H [place] % (Auto) 48.4 H Eos % (Auto) 0.4 Baso % (Auto) 0.1 Neut # 0.0 L Lymph # 0.2 L [place] # 0.3 Eos # 0.0 Baso # 0.0 Neutrophils % (Manual) 6 L Band Neutrophils % 1 Lymphocytes % (Manual) 48 Monocytes % (Manual) 45 H Platelet Estimate Markedly decreased L [place] Platelets Present Hypochromasia (manual) Slight Poikilocytosis (manual Moderate Anisocytosis (manual) Marked Microcytosis (manual) Slight Tear Drop Cells Slight Ovalocytes Slight Sodium 134 Potassium 3.7 Chloride 98 Carbon Dioxide 26 Anion Gap 14 BUN 21 H Creatinine 1.3 Est GFR ( Amer) > 60 Est GFR (Non-Af Amer) 53 Random Glucose 90 Calcium 8.4 Ur L.pneumophila Ag Negative Assessment & Plan (1) Cellulitis Status: Acute (2) Immunocompromised state Status: Acute (3) Pneumonia Status: Acute Priority: High (4) [place] cell carcinoma Status: Chronic Priority: High (5) Metastatic carcinoma Status: Chronic Priority: High (6) Cellulitis, leg Status: Acute (7) HTN (hypertension) Status: Chronic - Assessment and Plan (Free Text) Assessment: cannot r/o sepstic emboli to right index finger consider arthrocentesis if pain / swelling persist await cultures cont IV antibiotics
[2017-01-25] MEDS: Pantoprazole 40 mg EC Tab PO SCH (14:42)
[2017-01-25] MEDS: Bacitracin OINT 15GM TOP SCH (14:42)
--- NOTE | 2017-01-25 19:56 | CARD ---
APPROVED REPORT EKG Measurement Heart [id number] ID [id number] <Conclusion> Sinus rhythm with occasional premature ventricular complexes Low voltage QRS Cannot rule out Anteroseptal infarct, age undetermined Abnormal ECG
[2017-01-26] MEDS: Piperacillin/Tazobact 3.375 GM in Sodium Chloride 0.9% 100 ML IVPB SCH ×4 (03:56→21:18)
[2017-01-26 05:34] LABS: HEMATOCRIT 24.9 % (35.0-51.0); MEAN CELL VOLUME 75.4 fl (80.0-94.0); MEAN CORPUSCULAR HEMOGLOBIN 24.6 pg (27.0-31.0); MEAN CORPUSCULAR HGB CONC 32.6 g/dL (33.0-37.0); RED CELL DISTRIBUTION WIDTH 17.5 % (11.5-14.5)
[2017-01-26 05:45] LABS: WHITE BLOOD COUNT 1.5 K/uL (4.8-10.8)
[2017-01-26] MEDS: Pantoprazole 40 mg EC Tab PO SCH (09:20)
[2017-01-26] MEDS: Bacitracin OINT 15GM TOP SCH (09:21)
[2017-01-26] MEDS ORDERED: Sodium Chloride 0.9% 1,000 ML IV SCH (09:30)
--- NOTE | 2017-01-26 09:33 | CP.PCM.PN ---
Subjective - Date & Time of Evaluation Date of Evaluation: 01/26/17 Time of Evaluation: 09:13 - Subjective Subjective: Pt is afebrile in no acute distress. His WBC is up to 1.5 , and platelets are normal as well .He is on 2 antibiotics and diflucan. The hgb however is low aty 8.1 gms so he needs to be transfused . Will give him 2 units of packed cells today. Objective - Vital Signs/Intake and Output Vital Signs (last 24 hours): Temp Pulse Resp BP Pulse Ox 97.9 F 86 20 127/71 98 01/26/17 08:00 01/26/17 08:00 01/26/17 08:00 01/26/17 08:00 01/26/17 08:00 - Medications Medications: Current Medications Acetaminophen (Tylenol 325mg Tab) 650 mg PO Q6 PRN PRN Reason: Fever >100.4 F Al Hydrox/Mg Hydrox/Simethicone (Maalox Plus 30 Ml) 30 ml PO Q6 PRN PRN Reason: Indigestion / Heartburn Last Admin: 01/24/17 18:00 Dose: 30 ml Amlodipine Besylate (Norvasc) 5 mg PO DAILY [facility] Last Admin: 01/25/17 10:09 Dose: Not Given Aspirin (Ecotrin) 81 mg PO Q12 [facility] Last Admin: 01/25/17 23:38 Dose: 81 mg Bacitracin (Bacitracin Oint) 1 applic TOP DAILY [facility] Last Admin: 01/25/17 14:42 Dose: 1 applic Docusate Sodium (Colace) 100 mg PO BID [facility] Last Admin: 01/25/17 17:04 Dose: 100 mg Enalapril Maleate (Vasotec) 20 mg PO DAILY [facility] Last Admin: 01/25/17 14:48 Dose: 20 mg Hydrochlorothiazide (Hydrodiuril) 25 mg PO DAILY [facility] Last Admin: 01/25/17 10:07 Dose: 25 mg Vancomycin HCl 1 gm/ Sodium (Chloride) 250 mls @ 250 mls/hr IVPB Q12H [facility] PRN Reason: Protocol Last Admin: 01/25/17 20:46 Dose: 250 mls/hr Piperacillin Sod/Tazobactam (Sod 3.375 gm/ Sodium Chloride) 100 mls @ 100 mls/ hr IVPB Q6 [facility] PRN Reason: Protocol Last Admin: 01/26/17 03:56 Dose: 100 mls/hr Fluconazole (Diflucan Iv 200 Mg/100 Ml Ns) 100 mls @ 100 mls/hr IVPB DAILY [facility] Stop: 01/30/17 21:00 Morphine Sulfate (Morphine) 1 mg IVP Q4 PRN PRN Reason: Pain, moderate (4-7) Morphine Sulfate (Morphine) 2 mg IVP Q4 PRN PRN Reason: Pain, severe (8-10) Last Admin: 01/24/17 13:17 Dose: 2 mg Ondansetron HCl (Zofran Inj) 4 mg IVP Q6 PRN PRN Reason: Nausea/Vomiting Pantoprazole Sodium (Protonix Ec Tab) 40 mg PO DAILY [facility] Last Admin: 01/25/17 14:42 Dose: 40 mg Zolpidem Tartrate (Ambien) 5 mg PO HS PRN PRN Reason: Insomnia Last Admin: 01/25/17 21:28 Dose: 5 mg - Labs Labs: 01/26/17 04:30 01/25/17 06:00 PT 15.8 Seconds (9.8-13.1) H 01/24/17 10:50 INR 1.4 (0.9-1.2) H 01/24/17 10:50
--- NOTE | 2017-01-26 11:40 | CP.PCM.CON ---
History of Present Illness - History of Present Illness History of Present Illness: This consultation was requested because of an abrupt development of atrial fibrillation which has resolved after a dose of intravenous Cardizem to control his heart rate. 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 The patient has required bilateral pleural taps and has had 8 L of fluid removed on 2 consecutive days from right and left pleura. He has a history of hypertension and has been taking medications with good control. He denies any diabetes. He denies any history of effort related chest pain or myocardial infarction or congestive cardiac failure. The patient has undergone left knee replacement in September of this year. The patient admits to intermittent episodes of palpitations which spontaneously resolved. These are not accompanied by any sense of lightheadedness or sudden shortness of breath. He has never experienced any pedal edema. Physical examination shows an elderly man who is hard of hearing. But otherwise easily arousable and coherent. Afebrile with a pulse rate of 78 bpm and regular. His blood pressure was 110/70 mmHg (the patient has received IV Cardizem and now has 100 mL/h of normal saline running.) His jugular venous pressure was not elevated and there was no edema over his lower extremities. The left knee with a scar of total knee replacement has some degree of swelling which is nontender. [place] was not palpable. His first and second heart sounds were normal, and distant. No S3 gallop was audible. Air entry was reduced at right base. Abdomen was soft and liver and spleen are not palpable. 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 An echocardiogram done in June of this year shows preserved left ventricular systolic function with no significant valve problems. His lab data was noted. He is leukocytopenia and thrombocytopenia appeared to be resolving. His BUN and creatinine as well as electrolytes were normal. I have requested a thyroid profile. I will also requested an echocardiogram to rule out the possibility of pericardial effusion which might indicate involvement of pericardium given the fact that the patient has had bilateral pleural effusions. I also started the patient on metoprolol in an attempt to prevent severe tachycardia if and when atrial fibrillation occurs. I will discuss the issue of oral anticoagulation but given his thrombocytopenia not at this juncture. The patient at this point is hemodynamically stable. 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 - NEUROLOGICAL Hx Neurological Disorder: No - HEENT Other/Comment: Significant hearing loss. 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 - MUSCULOSKELETAL/RHEUMATOLOGICAL Hx Degenerative Joint Disease: Yes - GASTROINTESTINAL Hx Gastritis: Yes - GENITOURINARY/GYNECOLOGICAL Hx Genitourinary Disorders: No - PSYCHIATRIC Hx Anxiety: Yes Hx Substance Use: No Other/Comment: Insomnia. - SURGICAL HISTORY Hx Arthroscopy: Yes (left knee) Other/Comment: Excision of tumor on the scalp. Chest tube placement for pleural effusion followed by pleurodesis. - ANESTHESIA Hx Anesthesia: Yes Hx Anesthesia Reactions: No Hx Malignant Hyperthermia: No Meds Allergies/Adverse Reactions: Allergies Allergy/AdvReac Type Severity Reaction Status Date / Time No Known Allergies Allergy Verified 01/24/17 10:23 - Medications Medications: Current Medications Acetaminophen (Tylenol 325mg Tab) 650 mg PO Q6 PRN PRN Reason: Fever >100.4 F Al Hydrox/Mg Hydrox/Simethicone (Maalox Plus 30 Ml) 30 ml PO Q6 PRN PRN Reason: Indigestion / Heartburn Last Admin: 01/24/17 18:00 Dose: 30 ml Aspirin (Ecotrin) [address] [facility] Last Admin: 01/26/17 09:20 Dose: 81 mg Bacitracin (Bacitracin Oint) [address] [facility] Last Admin: 01/26/17 09:21 Dose: 1 applic Docusate Sodium (Colace) [address] [facility] Last Admin: 01/26/17 09:20 Dose: 100 mg Hydrochlorothiazide (Hydrodiuril) [address] [facility] Last Admin: 01/26/17 09:21 Dose: Not Given Vancomycin HCl 1 gm/ Sodium (Chloride) 250 mls @ 250 mls/hr IVPB Q12H [facility] PRN Reason: Protocol Last Admin: 01/26/17 09:26 Dose: 250 mls/hr Piperacillin Sod/Tazobactam (Sod 3.375 gm/ Sodium Chloride) 100 mls @ 100 mls/ hr IVPB Q6 [facility] PRN Reason: Protocol Last Admin: 01/26/17 10:15 Dose: 100 mls/hr Fluconazole (Diflucan Iv 200 Mg/100 Ml Ns) 100 mls @ 100 mls/hr IVPB DAILY [facility] Stop: 01/30/17 21:00 Sodium Chloride (Sodium Chloride 0.9%) 1,000 mls @ 50 mls/hr IV .Q20H [facility] Stop: 01/27/17 09:17 Metoprolol Tartrate (Lopressor) [address] [facility] Morphine Sulfate (Morphine) 1 mg IVP Q4 PRN PRN Reason: Pain, moderate (4-7) Morphine Sulfate (Morphine) 2 mg IVP Q4 PRN PRN Reason: Pain, severe (8-10) Last Admin: 01/24/17 13:17 Dose: 2 mg Ondansetron HCl (Zofran Inj) 4 mg IVP Q6 PRN PRN Reason: Nausea/Vomiting Pantoprazole Sodium (Protonix Ec Tab) [address] [facility] Last Admin: 01/26/17 09:20 Dose: 40 mg Zolpidem Tartrate (Ambien) 5 mg PO HS PRN PRN Reason: Insomnia Last Admin: 01/25/17 21:28 Dose: 5 mg Results - Vital Signs Recent Vital Signs: Last Vital Signs Temp 97.9 F 01/26/17 08:00 Pulse 127 H 01/26/17 09:53 Resp 20 01/26/17 09:53 BP 100/64 01/26/17 09:53 Pulse Ox 96 01/26/17 09:53 - Labs Result Diagrams: 01/26/17 04:30 01/25/17 06:00 Labs: Laboratory Results - last 24 hr 01/24/17 01/26/17 01/26/17 17:20 04:30 04:30 WBC 1.5 L* D RBC 3.30 L Hgb 8.1 L Hct 24.9 L MCV 75.4 L MCH 24.6 L MCHC 32.6 L RDW 17.5 H Plt Count 121 L D Uric Acid Vancomycin Trough 12.8 H Ur L.pneumophila Ag Negative Blood Type Antibody Screen Crossmatch BBK History Checked 01/26/17 01/26/17 04:30 09:30 WBC RBC Hgb Hct MCV MCH MCHC RDW Plt Count Uric Acid 5.2 Vancomycin Trough Ur L.pneumophila Ag Blood Type O POSITIVE Antibody Screen Negative Crossmatch See Detail BBK History Checked Patient has bt
--- NOTE | 2017-01-26 11:49 | CP.PCM.PN ---
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 denies chest pain or fever Objective - Vital Signs/Intake and Output Vital Signs (last 24 hours): Temp Pulse Resp BP Pulse Ox 97.9 F 127 H 20 100/64 96 01/26/17 08:00 01/26/17 09:53 01/26/17 09:53 01/26/17 09:53 01/26/17 09:53 - Medications Medications: Current Medications Acetaminophen (Tylenol 325mg Tab) 650 mg PO Q6 PRN PRN Reason: Fever >100.4 F Al Hydrox/Mg Hydrox/Simethicone (Maalox Plus 30 Ml) 30 ml PO Q6 PRN PRN Reason: Indigestion / Heartburn Last Admin: 01/24/17 18:00 Dose: 30 ml Aspirin (Ecotrin) 81 mg PO Q12 [facility] Last Admin: 01/26/17 09:20 Dose: 81 mg Bacitracin (Bacitracin Oint) 1 applic TOP DAILY [facility] Last Admin: 01/26/17 09:21 Dose: 1 applic Docusate Sodium (Colace) 100 mg PO BID [facility] Last Admin: 01/26/17 09:20 Dose: 100 mg Hydrochlorothiazide (Hydrodiuril) 25 mg PO DAILY [facility] Last Admin: 01/26/17 09:21 Dose: Not Given Vancomycin HCl 1 gm/ Sodium (Chloride) 250 mls @ 250 mls/hr IVPB Q12H [facility] PRN Reason: Protocol Last Admin: 01/26/17 09:26 Dose: 250 mls/hr Piperacillin Sod/Tazobactam (Sod 3.375 gm/ Sodium Chloride) 100 mls @ 100 mls/ hr IVPB Q6 [facility] PRN Reason: Protocol Last Admin: 01/26/17 10:15 Dose: 100 mls/hr Fluconazole (Diflucan Iv 200 Mg/100 Ml Ns) 100 mls @ 100 mls/hr IVPB DAILY [facility] Stop: 01/30/17 21:00 Sodium Chloride (Sodium Chloride 0.9%) 1,000 mls @ 50 mls/hr IV .Q20H [facility] Stop: 01/27/17 09:17 Metoprolol Tartrate (Lopressor) 25 mg PO Q12 [facility] Morphine Sulfate (Morphine) 1 mg IVP Q4 PRN PRN Reason: Pain, moderate (4-7) Morphine Sulfate (Morphine) 2 mg IVP Q4 PRN PRN Reason: Pain, severe (8-10) Last Admin: 01/24/17 13:17 Dose: 2 mg Ondansetron HCl (Zofran Inj) 4 mg IVP Q6 PRN PRN Reason: Nausea/Vomiting Pantoprazole Sodium (Protonix Ec Tab) 40 mg PO DAILY [facility] Last Admin: 01/26/17 09:20 Dose: 40 mg Zolpidem Tartrate (Ambien) 5 mg PO HS PRN PRN Reason: Insomnia Last Admin: 01/25/17 21:28 Dose: 5 mg - Labs Labs: 01/26/17 04:30 01/25/17 06:00 PT 15.8 Seconds (9.8-13.1) H 01/24/17 10:50 INR 1.4 (0.9-1.2) H 01/24/17 10:50 - Constitutional Appears: Non-toxic, Chronically Ill - Head Exam Head Exam: NORMOCEPHALIC - Eye Exam Eye Exam: PERRL. absent: Scleral icterus - ENT Exam ENT Exam: Mucous Membranes Dry - Neck Exam Neck Exam: absent: Lymphadenopathy - Respiratory Exam Respiratory Exam: Decreased Breath Sounds, Rhonchi - Cardiovascular Exam Cardiovascular Exam: REGULAR RHYTHM - GI/Abdominal Exam GI & Abdominal Exam: Distended, Soft - Rectal Exam Rectal Exam: Deferred - Exam Exam: NORMAL INSPECTION - Extremities Exam Extremities Exam: absent: Pedal Edema Additional comments: swelling left knee improving - Back Exam Back Exam: absent: CVA tenderness (L), CVA tenderness (R), paraspinal tenderness - Neurological Exam Neurological Exam: Alert, Awake, Oriented x3 - Psychiatric Exam Psychiatric exam: Normal Mood - Skin Skin Exam: Dry Additional comments: painfull tender right index finger wwith less swelling Assessment and Plan (1) Cellulitis Status: Acute (2) Immunocompromised state Status: Acute (3) Pneumonia Status: Acute (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
--- NOTE | 2017-01-26 13:37 | CP.PCM.PN ---
Subjective - Date & Time of Evaluation Date of Evaluation: 01/26/17 Time of Evaluation: 11:00 - Subjective Subjective: Today the patient states that he overall feels a bit better. He is complaining of continued pain and swelling to his left knee. He says the pain to his right index finger is better. The patient did have an episode of sinus tachycardia earlier today which converted briefly to atrial fibrillation- this resolved with administration of 5 mg IV of Cardizem and IV fluids. Dr. Logan was consulted for cardiology as well. Pt denies cp, sob, nausea, vomiting, diarrhea. Objective - Vital Signs/Intake and Output Vital Signs (last 24 hours): Temp Pulse Resp BP Pulse Ox 97.9 F 127 H 20 100/64 96 01/26/17 08:00 01/26/17 09:53 01/26/17 09:53 01/26/17 09:53 01/26/17 09:53 - Medications Medications: Current Medications Acetaminophen (Tylenol 325mg Tab) 650 mg PO Q6 PRN PRN Reason: Fever >100.4 F Al Hydrox/Mg Hydrox/Simethicone (Maalox Plus 30 Ml) 30 ml PO Q6 PRN PRN Reason: Indigestion / Heartburn Last Admin: 01/24/17 18:00 Dose: 30 ml Aspirin (Ecotrin) 81 mg PO Q12 [facility] Last Admin: 01/26/17 09:20 Dose: 81 mg Bacitracin (Bacitracin Oint) 1 applic TOP DAILY [facility] Last Admin: 01/26/17 09:21 Dose: 1 applic Docusate Sodium (Colace) 100 mg PO BID [facility] Last Admin: 01/26/17 09:20 Dose: 100 mg Hydrochlorothiazide (Hydrodiuril) 25 mg PO DAILY [facility] Last Admin: 01/26/17 09:21 Dose: Not Given Vancomycin HCl 1 gm/ Sodium (Chloride) 250 mls @ 250 mls/hr IVPB Q12H [facility] PRN Reason: Protocol Last Admin: 01/26/17 09:26 Dose: 250 mls/hr Piperacillin Sod/Tazobactam (Sod 3.375 gm/ Sodium Chloride) 100 mls @ 100 mls/ hr IVPB Q6 [facility] PRN Reason: Protocol Last Admin: 01/26/17 10:15 Dose: 100 mls/hr Fluconazole (Diflucan Iv 200 Mg/100 Ml Ns) 100 mls @ 100 mls/hr IVPB DAILY [facility] Stop: 01/30/17 21:00 Sodium Chloride (Sodium Chloride 0.9%) 1,000 mls @ 50 mls/hr IV .Q20H [facility] Stop: 01/27/17 09:17 Metoprolol Tartrate (Lopressor) 25 mg PO Q12 [facility] Morphine Sulfate (Morphine) 1 mg IVP Q4 PRN PRN Reason: Pain, moderate (4-7) Morphine Sulfate (Morphine) 2 mg IVP Q4 PRN PRN Reason: Pain, severe (8-10) Last Admin: 01/24/17 13:17 Dose: 2 mg Ondansetron HCl (Zofran Inj) 4 mg IVP Q6 PRN PRN Reason: Nausea/Vomiting Pantoprazole Sodium (Protonix Ec Tab) 40 mg PO DAILY [facility] Last Admin: 01/26/17 09:20 Dose: 40 mg Zolpidem Tartrate (Ambien) 5 mg PO HS PRN PRN Reason: Insomnia Last Admin: 01/25/17 21:28 Dose: 5 mg - Labs Labs: 01/26/17 04:30 01/25/17 06:00 PT 15.8 Seconds (9.8-13.1) H 01/24/17 10:50 INR 1.4 (0.9-1.2) H 01/24/17 10:50 Assessment and Plan - Assessment and Plan (Free Text) Plan: ASSESSMENT - Left sided multilobular pneumonia - Episode of atrial fibrillation with rvr today with good response to IV Cardizem - Severe neutropenia/pancytopenia secondary to chemotherapy - [place]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 Rivera - Left knee edema effusion, r/o septic joint - Hypertension, chronic PLAN - Neutropenia is improving, with good response to Vanc/zosyn - Closely monitor vitals; currently patient remains afebrile. - Reverse isolation - Consultation with Dr. Luciana Logan, cardiology, secondary to atrial fibrillation today- echocardiogram pending. Pt hemodynamically stable - consultation with Dr. Rivera, ID- cont IV abx - Consultation with Dr. Donny Logan, Heme/onc- Has started Granix, Diflucan - Consultation with Dr. Rodriguez, pulmonology - Consultation with Dr. Del Angel for r/o septic left knee- CT of the left knee pending for further eval. - Consultation with Dr. Treadwell for podiatry, right 2nd toe ulceration, wound care - Continue Vancomycin/Zosyn for empiric therapy - Heart healthy diet - D5 NS at 75 cc/hour for hydration - Zofran PRN for N/V - ASA 81 mg po daily - Enalapril - Continue to trend CBC - Await cultures
--- NOTE | 2017-01-26 13:38 | CP.PCM.PN ---
Subjective - Date & Time of Evaluation Date of Evaluation: 01/26/17 Time of Evaluation: 13:34 - Subjective Subjective: Orthopedic consultation requested Dr. Del Angel 76M complains of left knee pain and swelling x 3 days. Patient is s/p left total knee replacement on 10/27/[address] Del Angel, and was ambulating well without any assistive device, driving, progressing very well with PT until 3 days ago when he developed dry cough and shaking fever and chills that was accompanied by finger and left knee pain and swelling. He has not had any pain or swelling since the surgery, and had been walking well. He denies any trauma or falls. Patient hard of hearing, family at bedside. 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 He had recent chemotherapy 10 days ago, and upon admission was severely neutropenic, platelets of 70. Neutropenia has resolved, is s/p 2uPRBC, and platelets now > 120. Prelim blood cultures negative. Objective - Vital Signs/Intake and Output Vital Signs (last 24 hours): Temp Pulse Resp BP Pulse Ox 97.9 F 127 H 20 100/64 96 01/26/17 08:00 01/26/17 09:53 01/26/17 09:53 01/26/17 09:53 01/26/17 09:53 - Medications Medications: Current Medications Acetaminophen (Tylenol 325mg Tab) 650 mg PO Q6 PRN PRN Reason: Fever >100.4 F Al Hydrox/Mg Hydrox/Simethicone (Maalox Plus 30 Ml) 30 ml PO Q6 PRN PRN Reason: Indigestion / Heartburn Last Admin: 01/24/17 18:00 Dose: 30 ml Aspirin (Ecotrin) 81 mg PO Q12 [facility] Last Admin: 01/26/17 09:20 Dose: 81 mg Bacitracin (Bacitracin Oint) 1 applic TOP DAILY [facility] Last Admin: 01/26/17 09:21 Dose: 1 applic Docusate Sodium (Colace) 100 mg PO BID [facility] Last Admin: 01/26/17 09:20 Dose: 100 mg Hydrochlorothiazide (Hydrodiuril) 25 mg PO DAILY [facility] Last Admin: 01/26/17 09:21 Dose: Not Given Vancomycin HCl 1 gm/ Sodium (Chloride) 250 mls @ 250 mls/hr IVPB Q12H [facility] PRN Reason: Protocol Last Admin: 01/26/17 09:26 Dose: 250 mls/hr Piperacillin Sod/Tazobactam (Sod 3.375 gm/ Sodium Chloride) 100 mls @ 100 mls/ hr IVPB Q6 [facility] PRN Reason: Protocol Last Admin: 01/26/17 10:15 Dose: 100 mls/hr Fluconazole (Diflucan Iv 200 Mg/100 Ml Ns) 100 mls @ 100 mls/hr IVPB DAILY [facility] Stop: 01/30/17 21:00 Sodium Chloride (Sodium Chloride 0.9%) 1,000 mls @ 50 mls/hr IV .Q20H [facility] Stop: 01/27/17 09:17 Metoprolol Tartrate (Lopressor) 25 mg PO Q12 [facility] Morphine Sulfate (Morphine) 1 mg IVP Q4 PRN PRN Reason: Pain, moderate (4-7) Morphine Sulfate (Morphine) 2 mg IVP Q4 PRN PRN Reason: Pain, severe (8-10) Last Admin: 01/24/17 13:17 Dose: 2 mg Ondansetron HCl (Zofran Inj) 4 mg IVP Q6 PRN PRN Reason: Nausea/Vomiting Pantoprazole Sodium (Protonix Ec Tab) 40 mg PO DAILY [facility] Last Admin: 01/26/17 09:20 Dose: 40 mg Zolpidem Tartrate (Ambien) 5 mg PO HS PRN PRN Reason: Insomnia Last Admin: 01/25/17 21:28 Dose: 5 mg - Labs Labs: 01/26/17 04:30 01/25/17 06:00 PT 15.8 Seconds (9.8-13.1) H 01/24/17 10:50 INR 1.4 (0.9-1.2) H 01/24/17 10:50 - Constitutional Appears: Well, No Acute Distress - Extremities Exam Additional comments: Left knee: large joint effusion, no erythema, mildly warm, incision intact, well healed scar calves soft NT neg homans patient able to extend knee against gravity but weak, needs assistance to complete SLR flexes to approx 40 degrees with difficulty sensation intact +DP/PT pulses +DF/PF ankle - Neurological Exam Neurological Exam: Alert, Awake, Oriented x3 - Psychiatric Exam Psychiatric exam: Normal Affect, Normal Mood - Skin Skin Exam: Intact, Normal Color, Warm Assessment and Plan - Assessment and Plan (Free Text) Assessment: Acute left knee effusion 3 months s/p Left TKR -neutropenic on admission with thrombocytopenia -r/o hemarthrosis due to TCP vs sepsis -f/u blood cultures -knee xrays -CT knee pending -ID consultation appreciated -d/w Dr. Del Angel
--- NOTE | 2017-01-26 14:54 | PQF GENQUE ---
Patient had left lower lobe infiltrate on admission, unspecified organism at the time of my note as cultures had not grown. Dr. Orta, Please specify type of pneumonia in the progress notes: if known (or document type unknown at this time) Aspiration pneumonia Please document specific aspirate (food, liquids, etc.) (please indicate specific cause) Please indicate if this is postprocedural Bacterial (specify organism) Bronchopneumonia (specify organism) Interstitual pneumonia Organizing pneumonia/BOOP RSV pneumonia Viral pneumonia Other pneumonia (specify organism or type) OR: Clinically unable to determine OR: Unknown Note: Probable and suspected conditions can be coded as if they exist if still documented at the time of discharge. 2. Sputum culture grew . Please document the causal relationship to the pneumonia being treated. 3. Please specify the organism causing the pneumonia:if known after the work up is completed Note: CAP, HAP, and HCAP indicate where the pneumonia was acquired, not a specific type. Pulmonary consult: 1.Pneumonia Patient will be placed in reverse isolation because of leukopenia. Antibiotic therapy for immunosuppressed patient with left lower lobe infiltrate.Status: Acute 2.Metastatic carcinoma Right upper lobe mass appears relatively unchanged from prior film. Possibility of left lower lobe infiltrate being more jewelry sales representative of tumor than of infectious process. Status: Chronic This form is a permanent part of the medical record Clarification of your documentation is requested to better reflect the severity of illness and intensity of treatment of your patient. Indicators present [] Specify: [] [] Specify: [] [] Specify: [] [] Specify: [] Location in the medical record that reflects the above clinical findings: [] Treatment Provided: [] PHYSICIAN'S RESPONSE Based on your medical judgment of the clinical indicators outlined above please clarify the following: [X] Practitioner response [] If unable to determine, please check the box, sign and date. Present On Admission (POA) Indicator: [X] Present at the time of admission [] Not present at the time of admission [] Clinically Undetermined In responding to this query, please exercise your independent professional judgment. The fact that a question is asked does not imply that any particular answer is desired or expected. Thank you for your clarification on this documentation. If you have any questions please call. * Thank you, Sharona Norwood RN ext. #[phone]: Ashley MARTIND
[2017-01-26] MEDS: Alum-Mag Hydrox-Simethicone Susp (30 mL) PO PRN (15:58)
[2017-01-26] MEDS: Fluconazole IV 200mg/100 ml NS 100 ML IVPB SCH (18:23)
[2017-01-26] MEDS: Sodium Chloride 0.9% 1,000 ML IV SCH (18:24)
[2017-01-26] MEDS: Benzocaine/Menthol (Cepacol) Lozenge PO PRN (18:28)
[2017-01-26 23:34] LABS: MEAN CELL VOLUME 76.3 fl (80.0-94.0); MEAN CORPUSCULAR HEMOGLOBIN 24.9 pg (27.0-31.0); MEAN CORPUSCULAR HGB CONC 32.7 g/dL (33.0-37.0); RED CELL DISTRIBUTION WIDTH 17.6 % (11.5-14.5); WHITE BLOOD COUNT 5.1 K/uL (4.8-10.8)
[2017-01-27] MEDS: Piperacillin/Tazobact 3.375 GM in Sodium Chloride 0.9% 100 ML IVPB SCH ×4 (04:29→22:08)
[2017-01-27] MEDS: Fluconazole IV 200mg/100 ml NS 100 ML IVPB SCH (08:37)
[2017-01-27] MEDS: Pantoprazole 40 mg EC Tab PO SCH (08:47)
[2017-01-27] MEDS: Sodium Chloride 0.9% 1,000 ML IV SCH (08:47)
[2017-01-27] MEDS: Bacitracin OINT 15GM TOP SCH (08:52)
--- NOTE | 2017-01-27 09:00 | CP.PCM.PN ---
Subjective - Date & Time of Evaluation Date of Evaluation: 01/27/17 Time of Evaluation: 08:58 - Subjective Subjective: Patient states his left knee feels much better today, he says he is able to bend it more. He is complaining of pain in his right index finger which has been present since admission also. Review of Systems - Cardiovascular Cardiovascular: UNREMARKABLE - Respiratory Respiratory: UNREMARKABLE - Gastrointestinal Gastrointestinal: UNREMARKABLE - Musculoskeletal Musculoskeletal: As Par HPI - Integumentary Integumentary: As Per HPI - Neurological Neurological: UNREMARKABLE - Hematologic/Lymphatic Hematologic: UNREMARKABLE Objective - Vital Signs/Intake and Output Vital Signs (last 24 hours): Temp Pulse Resp BP Pulse Ox 98.2 F 79 18 116/70 96 01/27/17 08:06 01/27/17 08:46 01/27/17 08:06 01/27/17 08:46 01/27/17 08:06 Intake and Output: 01/27/17 01/27/17 06:59 18:59 Output Total 150 Balance -150 - Medications Medications: Current Medications Acetaminophen (Tylenol 325mg Tab) 650 mg PO Q6 PRN PRN Reason: Fever >100.4 F Al Hydrox/Mg Hydrox/Simethicone (Maalox Plus 30 Ml) 30 ml PO Q6 PRN PRN Reason: Indigestion / Heartburn Last Admin: 01/26/17 15:58 Dose: 30 ml Aspirin (Ecotrin) 81 mg PO Q12 [facility] Last Admin: 01/27/17 08:47 Dose: 81 mg Bacitracin (Bacitracin Oint) 1 applic TOP DAILY [facility] Last Admin: 01/27/17 08:52 Dose: 1 applic Benzocaine/Menthol (Cepacol Sore Throat) 1 lul PO Q3 PRN PRN Reason: Sore Throat Last Admin: 01/26/17 18:28 Dose: 1 lul Docusate Sodium (Colace) 100 mg PO BID [facility] Last Admin: 01/27/17 08:45 Dose: 100 mg Hydrochlorothiazide (Hydrodiuril) 25 mg PO DAILY [facility] Last Admin: 01/26/17 09:21 Dose: Not Given Vancomycin HCl 1 gm/ Sodium (Chloride) 250 mls @ 250 mls/hr IVPB Q12H [facility] PRN Reason: Protocol Last Admin: 01/27/17 08:50 Dose: 250 mls/hr Piperacillin Sod/Tazobactam (Sod 3.375 gm/ Sodium Chloride) 100 mls @ 100 mls/ hr IVPB Q6 [facility] PRN Reason: Protocol Last Admin: 01/27/17 04:29 Dose: 100 mls/hr Fluconazole (Diflucan Iv 200 Mg/100 Ml Ns) 100 mls @ 100 mls/hr IVPB DAILY [facility] Stop: 01/30/17 21:00 Last Admin: 01/27/17 08:37 Dose: 100 mls/hr Sodium Chloride (Sodium Chloride 0.9%) 1,000 mls @ 50 mls/hr IV .Q20H [facility] Stop: 01/27/17 09:17 Last Admin: 01/27/17 08:47 Dose: 50 mls/hr Metoprolol Tartrate (Lopressor) 25 mg PO Q12 [facility] Last Admin: 01/27/17 08:46 Dose: 25 mg Morphine Sulfate (Morphine) 1 mg IVP Q4 PRN PRN Reason: Pain, moderate (4-7) Morphine Sulfate (Morphine) 2 mg IVP Q4 PRN PRN Reason: Pain, severe (8-10) Last Admin: 01/24/17 13:17 Dose: 2 mg Ondansetron HCl (Zofran Inj) 4 mg IVP Q6 PRN PRN Reason: Nausea/Vomiting Pantoprazole Sodium (Protonix Ec Tab) 40 mg PO DAILY [facility] Last Admin: 01/27/17 08:47 Dose: 40 mg Zolpidem Tartrate (Ambien) 5 mg PO HS PRN PRN Reason: Insomnia Last Admin: 01/25/17 21:28 Dose: 5 mg - Labs Labs: 01/26/17 23:30 01/25/17 06:00 PT 15.8 Seconds (9.8-13.1) H 01/24/17 10:50 INR 1.4 (0.9-1.2) H 01/24/17 10:50 - Constitutional Appears: Well, No Acute Distress - Respiratory Exam Respiratory Exam: NORMAL BREATHING PATTERN - Extremities Exam Additional comments: Left knee: effusion now moderate, improved from yesterday. Still pain with AROM but improved from yesterday 0-60. No erythema, skin intact, mildly warm only, minimally tender. calves soft Nt neg homans, sensation intacty Right index finger: blood and pus filled collection on palmar aspect of distal phalanx, tender, swollen, mod erythema - Neurological Exam Neurological Exam: Alert, Awake, Oriented x3 Neuro motor strength exam: Left Lower Extremity: 5 (+DF/PF ankle, sensation intact) - Psychiatric Exam Psychiatric exam: Normal Affect, Normal Mood - Skin Skin Exam: Dry, Intact, Normal Color, Warm Assessment and Plan (1) Knee effusion, left Assessment & Plan: improving clinically suspect hemarthrosis due to transient thrombocytopenia, less likely infection awaiting xrays and CT, xray called will do this am d/w Dr. Del Angel Right index felon: xrays d/w Dr. Del Angel, renetta eval pt in am Status: Acute
--- NOTE | 2017-01-27 09:05 | CP.PCM.PN ---
Subjective - Date & Time of Evaluation Date of Evaluation: 01/27/17 Time of Evaluation: 09:05 - Subjective Subjective: Has remained in sinus rhythm at physiologic rates No signs of CHF BP 110/70 mm Hg To have echo today ( ?? Pericardial effusion) Objective - Vital Signs/Intake and Output Vital Signs (last 24 hours): Temp Pulse Resp BP Pulse Ox 98.2 F 79 18 116/70 96 01/27/17 08:06 01/27/17 08:46 01/27/17 08:06 01/27/17 08:46 01/27/17 08:06 Intake and Output: 01/27/17 01/27/17 06:59 18:59 Output Total 150 Balance -150 - Medications Medications: Current Medications Acetaminophen (Tylenol 325mg Tab) 650 mg PO Q6 PRN PRN Reason: Fever >100.4 F Al Hydrox/Mg Hydrox/Simethicone (Maalox Plus 30 Ml) 30 ml PO Q6 PRN PRN Reason: Indigestion / Heartburn Last Admin: 01/26/17 15:58 Dose: 30 ml Aspirin (Ecotrin) 81 mg PO Q12 [facility] Last Admin: 01/27/17 08:47 Dose: 81 mg Bacitracin (Bacitracin Oint) 1 applic TOP DAILY [facility] Last Admin: 01/27/17 08:52 Dose: 1 applic Benzocaine/Menthol (Cepacol Sore Throat) 1 lul PO Q3 PRN PRN Reason: Sore Throat Last Admin: 01/26/17 18:28 Dose: 1 lul Docusate Sodium (Colace) 100 mg PO BID [facility] Last Admin: 01/27/17 08:45 Dose: 100 mg Hydrochlorothiazide (Hydrodiuril) 25 mg PO DAILY [facility] Last Admin: 01/26/17 09:21 Dose: Not Given Vancomycin HCl 1 gm/ Sodium (Chloride) 250 mls @ 250 mls/hr IVPB Q12H [facility] PRN Reason: Protocol Last Admin: 01/27/17 08:50 Dose: 250 mls/hr Piperacillin Sod/Tazobactam (Sod 3.375 gm/ Sodium Chloride) 100 mls @ 100 mls/ hr IVPB Q6 [facility] PRN Reason: Protocol Last Admin: 01/27/17 04:29 Dose: 100 mls/hr Fluconazole (Diflucan Iv 200 Mg/100 Ml Ns) 100 mls @ 100 mls/hr IVPB DAILY [facility] Stop: 01/30/17 21:00 Last Admin: 01/27/17 08:37 Dose: 100 mls/hr Sodium Chloride (Sodium Chloride 0.9%) 1,000 mls @ 50 mls/hr IV .Q20H [facility] Stop: 01/27/17 09:17 Last Admin: 01/27/17 08:47 Dose: 50 mls/hr Metoprolol Tartrate (Lopressor) 25 mg PO Q12 [facility] Last Admin: 01/27/17 08:46 Dose: 25 mg Morphine Sulfate (Morphine) 1 mg IVP Q4 PRN PRN Reason: Pain, moderate (4-7) Morphine Sulfate (Morphine) 2 mg IVP Q4 PRN PRN Reason: Pain, severe (8-10) Last Admin: 01/24/17 13:17 Dose: 2 mg Ondansetron HCl (Zofran Inj) 4 mg IVP Q6 PRN PRN Reason: Nausea/Vomiting Pantoprazole Sodium (Protonix Ec Tab) 40 mg PO DAILY [facility] Last Admin: 01/27/17 08:47 Dose: 40 mg Zolpidem Tartrate (Ambien) 5 mg PO HS PRN PRN Reason: Insomnia Last Admin: 01/25/17 21:28 Dose: 5 mg - Labs Labs: 01/26/17 23:30 01/25/17 06:00 PT 15.8 Seconds (9.8-13.1) H 01/24/17 10:50 INR 1.4 (0.9-1.2) H 01/24/17 10:50
--- NOTE | 2017-01-27 09:11 | CP.PCM.PN ---
Subjective - Date & Time of Evaluation Date of Evaluation: 01/27/17 Time of Evaluation: 08:59 - Subjective Subjective: Seen on morning rounds. Labs reviewed. Case discussed with cardiology. Presently in NSR 80BPM. No fever, good SpO2, WBC up to 5+, isolation discontinued. Seen by ortho, plan for CT left knee today. Index finger of right hand has tense, tender bloody fluid collection at the tip. Able to express bloody, purulent fluid by applying pressure (specimen obtained for culture). Breathing comfortably, denies cough or chest pain. Breath sounds are diminished bilaterally, especially in the LLL. No bronchial breath sounds or egophony. Continue present medical regimen. Await culture report. Echocardiogram requested by cardiology. Appearance of CT suggests increased LLL metastatic disease and loculated effusions. Will request repeat CT chest without contrast. Objective - Vital Signs/Intake and Output Vital Signs (last 24 hours): Temp Pulse Resp BP Pulse Ox 98.2 F 79 18 116/70 96 01/27/17 08:06 01/27/17 08:46 01/27/17 08:06 01/27/17 08:46 01/27/17 08:06 Intake and Output: 01/26/17 01/27/17 23:59 11:59 Intake Total 1730 Output Total 150 Balance 1580 - Medications Medications: Current Medications Acetaminophen (Tylenol 325mg Tab) 650 mg PO Q6 PRN PRN Reason: Fever >100.4 F Al Hydrox/Mg Hydrox/Simethicone (Maalox Plus 30 Ml) 30 ml PO Q6 PRN PRN Reason: Indigestion / Heartburn Last Admin: 01/26/17 15:58 Dose: 30 ml Aspirin (Ecotrin) 81 mg PO Q12 [facility] Last Admin: 01/27/17 08:47 Dose: 81 mg Bacitracin (Bacitracin Oint) 1 applic TOP DAILY [facility] Last Admin: 01/27/17 08:52 Dose: 1 applic Benzocaine/Menthol (Cepacol Sore Throat) 1 lul PO Q3 PRN PRN Reason: Sore Throat Last Admin: 01/26/17 18:28 Dose: 1 lul Docusate Sodium (Colace) 100 mg PO BID [facility] Last Admin: 01/27/17 08:45 Dose: 100 mg Hydrochlorothiazide (Hydrodiuril) 25 mg PO DAILY [facility] Last Admin: 01/26/17 09:21 Dose: Not Given Vancomycin HCl 1 gm/ Sodium (Chloride) 250 mls @ 250 mls/hr IVPB Q12H [facility] PRN Reason: Protocol Last Admin: 01/27/17 08:50 Dose: 250 mls/hr Piperacillin Sod/Tazobactam (Sod 3.375 gm/ Sodium Chloride) 100 mls @ 100 mls/ hr IVPB Q6 [facility] PRN Reason: Protocol Last Admin: 01/27/17 04:29 Dose: 100 mls/hr Fluconazole (Diflucan Iv 200 Mg/100 Ml Ns) 100 mls @ 100 mls/hr IVPB DAILY [facility] Stop: 01/30/17 21:00 Last Admin: 01/27/17 08:37 Dose: 100 mls/hr Sodium Chloride (Sodium Chloride 0.9%) 1,000 mls @ 50 mls/hr IV .Q20H [facility] Stop: 01/27/17 09:17 Last Admin: 01/27/17 08:47 Dose: 50 mls/hr Metoprolol Tartrate (Lopressor) 25 mg PO Q12 [facility] Last Admin: 01/27/17 08:46 Dose: 25 mg Morphine Sulfate (Morphine) 1 mg IVP Q4 PRN PRN Reason: Pain, moderate (4-7) Morphine Sulfate (Morphine) 2 mg IVP Q4 PRN PRN Reason: Pain, severe (8-10) Last Admin: 01/24/17 13:17 Dose: 2 mg Ondansetron HCl (Zofran Inj) 4 mg IVP Q6 PRN PRN Reason: Nausea/Vomiting Pantoprazole Sodium (Protonix Ec Tab) 40 mg PO DAILY [facility] Last Admin: 01/27/17 08:47 Dose: 40 mg Zolpidem Tartrate (Ambien) 5 mg PO HS PRN PRN Reason: Insomnia Last Admin: 01/25/17 21:28 Dose: 5 mg - Labs Labs: 01/26/17 23:30 01/25/17 06:00 PT 15.8 Seconds (9.8-13.1) H 01/24/17 10:50 INR 1.4 (0.9-1.2) H 01/24/17 10:50 Assessment and Plan (1) Pneumonia Status: Acute (2) Metastatic carcinoma Status: Chronic (3) [place] cell carcinoma Status: Chronic
--- NOTE | 2017-01-27 10:10 | CP.PCM.PN ---
Subjective - Date & Time of Evaluation Date of Evaluation: 01/27/17 Time of Evaluation: 09:58 - Subjective Subjective: Pt is afebrile, but the finger lesion when lanced was purulant. C/S is pending. The left knee is still swollen and warm to touch.. He will have a ct of the knee and the chest today, along with a echocardiogram. Fortunately the WBC is 5.5 yesterday. Will repeat a cbc with diff today and continue the granix. Would like him to have some physical therapy if possible Objective - Vital Signs/Intake and Output Vital Signs (last 24 hours): Temp Pulse Resp BP Pulse Ox 98.2 F 79 18 116/70 96 01/27/17 08:06 01/27/17 08:46 01/27/17 08:06 01/27/17 08:46 01/27/17 08:06 Intake and Output: 01/27/17 01/27/17 06:59 18:59 Output Total 150 Balance -150 - Medications Medications: Current Medications Acetaminophen (Tylenol 325mg Tab) 650 mg PO Q6 PRN PRN Reason: Fever >100.4 F Al Hydrox/Mg Hydrox/Simethicone (Maalox Plus 30 Ml) 30 ml PO Q6 PRN PRN Reason: Indigestion / Heartburn Last Admin: 01/26/17 15:58 Dose: 30 ml Aspirin (Ecotrin) 81 mg PO Q12 [facility] Last Admin: 01/27/17 08:47 Dose: 81 mg Bacitracin (Bacitracin Oint) 1 applic TOP DAILY [facility] Last Admin: 01/27/17 08:52 Dose: 1 applic Benzocaine/Menthol (Cepacol Sore Throat) 1 lul PO Q3 PRN PRN Reason: Sore Throat Last Admin: 01/26/17 18:28 Dose: 1 lul Docusate Sodium (Colace) 100 mg PO BID [facility] Last Admin: 01/27/17 09:19 Dose: Not Given Hydrochlorothiazide (Hydrodiuril) 25 mg PO DAILY [facility] Last Admin: 01/26/17 09:21 Dose: Not Given Vancomycin HCl 1 gm/ Sodium (Chloride) 250 mls @ 250 mls/hr IVPB Q12H [facility] PRN Reason: Protocol Last Admin: 01/27/17 08:50 Dose: 250 mls/hr Piperacillin Sod/Tazobactam (Sod 3.375 gm/ Sodium Chloride) 100 mls @ 100 mls/ hr IVPB Q6 [facility] PRN Reason: Protocol Last Admin: 01/27/17 09:20 Dose: 100 mls/hr Fluconazole (Diflucan Iv 200 Mg/100 Ml Ns) 100 mls @ 100 mls/hr IVPB DAILY [facility] Stop: 01/30/17 21:00 Last Admin: 01/27/17 08:37 Dose: 100 mls/hr Metoprolol Tartrate (Lopressor) 25 mg PO Q12 [facility] Last Admin: 01/27/17 08:46 Dose: 25 mg Morphine Sulfate (Morphine) 1 mg IVP Q4 PRN PRN Reason: Pain, moderate (4-7) Morphine Sulfate (Morphine) 2 mg IVP Q4 PRN PRN Reason: Pain, severe (8-10) Last Admin: 01/24/17 13:17 Dose: 2 mg Ondansetron HCl (Zofran Inj) 4 mg IVP Q6 PRN PRN Reason: Nausea/Vomiting Pantoprazole Sodium (Protonix Ec Tab) 40 mg PO DAILY [facility] Last Admin: 01/27/17 08:47 Dose: 40 mg Zolpidem Tartrate (Ambien) 5 mg PO HS PRN PRN Reason: Insomnia Last Admin: 01/25/17 21:28 Dose: 5 mg - Labs Labs: 01/26/17 23:30 01/25/17 06:00 PT 15.8 Seconds (9.8-13.1) H 01/24/17 10:50 INR 1.4 (0.9-1.2) H 01/24/17 10:50
[2017-01-27 10:39] LABS: BASO % 0.1 % (0.0-2.0); EOS % 0.1 % (0.0-4.0); HEMATOCRIT 29.5 % (35.0-51.0); LYMPH # 0.8 K/uL (1.0-4.3); LYMPH % 10.4 % (20.0-40.0); MEAN CELL VOLUME 75.2 fl (80.0-94.0); MEAN CORPUSCULAR HEMOGLOBIN 25.5 pg (27.0-31.0); MEAN CORPUSCULAR HGB CONC 33.9 g/dL (33.0-37.0); MEAN PLATELET VOLUME 8.1 fl (7.2-11.7); MONO # 0.6 K/uL (0.0-0.8); NEUT # 6.7 K/uL (1.8-7.0); NEUT % 82.4 % (50.0-75.0); NRBC % 0.1 % (0.0-0.0); RED CELL DISTRIBUTION WIDTH 17.5 % (11.5-14.5); WHITE BLOOD COUNT 8.1 K/uL (4.8-10.8)
--- NOTE | 2017-01-27 10:41 | CP.PCM.PN ---
Subjective - Date & Time of Evaluation Date of Evaluation: 01/27/17 Time of Evaluation: 09:00 - Subjective Subjective: No fever since yesterday has sl cough, dry no CP no SOB left knee sweling sl better and less painful right index finder I&D done by dr Rodriguez at bedside - purulent discharge- sent for c/s also noted right foot 2nd digit ulcer with purulent drainage. No abd pain discussed all test results with pt and his spouse Objective - Vital Signs/Intake and Output Vital Signs (last 24 hours): Temp Pulse Resp BP Pulse Ox 98.2 F 79 18 116/70 96 01/27/17 08:06 01/27/17 08:46 01/27/17 08:06 01/27/17 08:46 01/27/17 08:06 Intake and Output: 01/27/17 01/27/17 06:59 18:59 Output Total 150 Balance -150 - Medications Medications: Current Medications Acetaminophen (Tylenol 325mg Tab) 650 mg PO Q6 PRN PRN Reason: Fever >100.4 F Al Hydrox/Mg Hydrox/Simethicone (Maalox Plus 30 Ml) 30 ml PO Q6 PRN PRN Reason: Indigestion / Heartburn Last Admin: 01/26/17 15:58 Dose: 30 ml Aspirin (Ecotrin) 81 mg PO Q12 [facility] Last Admin: 01/27/17 08:47 Dose: 81 mg Bacitracin (Bacitracin Oint) 1 applic TOP DAILY [facility] Last Admin: 01/27/17 08:52 Dose: 1 applic Benzocaine/Menthol (Cepacol Sore Throat) 1 lul PO Q3 PRN PRN Reason: Sore Throat Last Admin: 01/26/17 18:28 Dose: 1 lul Docusate Sodium (Colace) 100 mg PO BID [facility] Last Admin: 01/27/17 09:19 Dose: Not Given Hydrochlorothiazide (Hydrodiuril) 25 mg PO DAILY [facility] Last Admin: 01/26/17 09:21 Dose: Not Given Vancomycin HCl 1 gm/ Sodium (Chloride) 250 mls @ 250 mls/hr IVPB Q12H [facility] PRN Reason: Protocol Last Admin: 01/27/17 08:50 Dose: 250 mls/hr Piperacillin Sod/Tazobactam (Sod 3.375 gm/ Sodium Chloride) 100 mls @ 100 mls/ hr IVPB Q6 [facility] PRN Reason: Protocol Last Admin: 01/27/17 09:20 Dose: 100 mls/hr Fluconazole (Diflucan Iv 200 Mg/100 Ml Ns) 100 mls @ 100 mls/hr IVPB DAILY [facility] Stop: 01/30/17 21:00 Last Admin: 01/27/17 08:37 Dose: 100 mls/hr Metoprolol Tartrate (Lopressor) 25 mg PO Q12 [facility] Last Admin: 01/27/17 08:46 Dose: 25 mg Morphine Sulfate (Morphine) 1 mg IVP Q4 PRN PRN Reason: Pain, moderate (4-7) Morphine Sulfate (Morphine) 2 mg IVP Q4 PRN PRN Reason: Pain, severe (8-10) Last Admin: 01/24/17 13:17 Dose: 2 mg Ondansetron HCl (Zofran Inj) 4 mg IVP Q6 PRN PRN Reason: Nausea/Vomiting Pantoprazole Sodium (Protonix Ec Tab) 40 mg PO DAILY [facility] Last Admin: 01/27/17 08:47 Dose: 40 mg Zolpidem Tartrate (Ambien) 5 mg PO HS PRN PRN Reason: Insomnia Last Admin: 01/25/17 21:28 Dose: 5 mg - Labs Labs: 01/27/17 10:20 01/25/17 06:00 PT 15.8 Seconds (9.8-13.1) H 01/24/17 10:50 INR 1.4 (0.9-1.2) H 01/24/17 10:50 - Constitutional Appears: Non-toxic, No Acute Distress, Chronically Ill - Head Exam Head Exam: NORMAL INSPECTION, NORMOCEPHALIC - Eye Exam Eye Exam: EOMI, Normal appearance Pupil Exam: NORMAL ACCOMODATION - ENT Exam ENT Exam: Mucous Membranes Moist, Normal External Ear Exam - Neck Exam Neck Exam: Full ROM. absent: Meningismus - Respiratory Exam Respiratory Exam: Decreased Breath Sounds, Rales, NORMAL BREATHING PATTERN. absent: Respiratory Distress - Cardiovascular Exam Cardiovascular Exam: REGULAR RHYTHM, +S1, +S2 - GI/Abdominal Exam GI & Abdominal Exam: Soft, Normal Bowel Sounds. absent: Tenderness - Extremities Exam Extremities Exam: Normal Capillary Refill. absent: Calf Tenderness, Pedal Edema Additional comments: right foot 2nd digit with ulcer , able to express some purulent discharge right index finger abscess - Back Exam Back Exam: absent: CVA tenderness (L), CVA tenderness (R) - Neurological Exam Neurological Exam: Alert, Awake, Oriented x3 Neuro motor strength exam: Left Upper Extremity: 5, Right Upper Extremity: 5, Left Lower Extremity: 5, Right Lower Extremity: 5 - Psychiatric Exam Psychiatric exam: Normal Affect, Normal Mood - Skin Skin Exam: Dry, Normal Color, Warm Assessment and Plan - Assessment and Plan (Free Text) Assessment: 76 y/o gent with hx of HTN, [place] Cancer , 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 Noted to be febrile, neutropenic on admission. Also developed A fib with RVR w /c resolved with a dose of IV cardizem. Extensive pleural-based soft tissue throughout much of the left prudencio thorax and in the right apex, suspicious for neoplastic disease. Probable central necrosis within areas of the pleural-based soft tissue in the lower left prudencio thorax. Multiple pulmonary nodules. No significant lymphadenopathy. No acute infiltrate. 1. Question of Pneumonia CT of chest : no acute infiltrate however noted multiple pulm nodules and pleural based soft tissue mass on IV Zosyn and Vanco Blood c/s, Sputum c/s Pulm consulted Mycoplasma ag, Strep ag 2. Episode of atrial fibrillation with rvr resolved with IV Cardizem now SR Cardio consulted 3. 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 Right 1st digit pain/abscess s/p I&D Wound c/s ID consulted 5. Left knee effusion Ortho consult : Dr Del Angel CT of the knee 6.Hypertension, chronic cont Metoprolol 7. Right foot 2nd digit ulcer - was able to express out some purulent discahrge Podiatry consult Pt is on IV abx DVT proph - will start LOvenox in am if Platelet normal
--- NOTE | 2017-01-27 11:29 | CP.PCM.PN ---
Subjective - Date & Time of Evaluation Date of Evaluation: 01/27/17 Time of Evaluation: 08:00 - Subjective Subjective: afeb nad Objective - Vital Signs/Intake and Output Vital Signs (last 24 hours): Temp Pulse Resp BP Pulse Ox 98.2 F 79 18 116/70 96 01/27/17 08:06 01/27/17 08:46 01/27/17 08:06 01/27/17 08:46 01/27/17 08:06 Intake and Output: 01/27/17 01/27/17 06:59 18:59 Output Total 150 Balance -150 - Medications Medications: Current Medications Acetaminophen (Tylenol 325mg Tab) 650 mg PO Q6 PRN PRN Reason: Fever >100.4 F Al Hydrox/Mg Hydrox/Simethicone (Maalox Plus 30 Ml) 30 ml PO Q6 PRN PRN Reason: Indigestion / Heartburn Last Admin: 01/26/17 15:58 Dose: 30 ml Aspirin (Ecotrin) 81 mg PO Q12 [facility] Last Admin: 01/27/17 08:47 Dose: 81 mg Bacitracin (Bacitracin Oint) 1 applic TOP DAILY [facility] Last Admin: 01/27/17 08:52 Dose: 1 applic Benzocaine/Menthol (Cepacol Sore Throat) 1 lul PO Q3 PRN PRN Reason: Sore Throat Last Admin: 01/26/17 18:28 Dose: 1 lul Docusate Sodium (Colace) 100 mg PO BID [facility] Last Admin: 01/27/17 09:19 Dose: Not Given Hydrochlorothiazide (Hydrodiuril) 25 mg PO DAILY [facility] Last Admin: 01/26/17 09:21 Dose: Not Given Vancomycin HCl 1 gm/ Sodium (Chloride) 250 mls @ 250 mls/hr IVPB Q12H [facility] PRN Reason: Protocol Last Admin: 01/27/17 08:50 Dose: 250 mls/hr Piperacillin Sod/Tazobactam (Sod 3.375 gm/ Sodium Chloride) 100 mls @ 100 mls/ hr IVPB Q6 [facility] PRN Reason: Protocol Last Admin: 01/27/17 09:20 Dose: 100 mls/hr Fluconazole (Diflucan Iv 200 Mg/100 Ml Ns) 100 mls @ 100 mls/hr IVPB DAILY [facility] Stop: 01/30/17 21:00 Last Admin: 01/27/17 08:37 Dose: 100 mls/hr Metoprolol Tartrate (Lopressor) 25 mg PO Q12 [facility] Last Admin: 01/27/17 08:46 Dose: 25 mg Morphine Sulfate (Morphine) 1 mg IVP Q4 PRN PRN Reason: Pain, moderate (4-7) Morphine Sulfate (Morphine) 2 mg IVP Q4 PRN PRN Reason: Pain, severe (8-10) Last Admin: 01/24/17 13:17 Dose: 2 mg Ondansetron HCl (Zofran Inj) 4 mg IVP Q6 PRN PRN Reason: Nausea/Vomiting Pantoprazole Sodium (Protonix Ec Tab) 40 mg PO DAILY [facility] Last Admin: 01/27/17 08:47 Dose: 40 mg Zolpidem Tartrate (Ambien) 5 mg PO HS PRN PRN Reason: Insomnia Last Admin: 01/25/17 21:28 Dose: 5 mg - Labs Labs: 01/27/17 10:20 01/25/17 06:00 PT 15.8 Seconds (9.8-13.1) H 01/24/17 10:50 INR 1.4 (0.9-1.2) H 01/24/17 10:50 - Constitutional Appears: Non-toxic, Chronically Ill - Head Exam Head Exam: NORMOCEPHALIC - Eye Exam Eye Exam: PERRL. absent: Scleral icterus - ENT Exam ENT Exam: Mucous Membranes Dry, Normal External Ear Exam - Neck Exam Neck Exam: absent: Lymphadenopathy - Respiratory Exam Respiratory Exam: Decreased Breath Sounds - Cardiovascular Exam Cardiovascular Exam: REGULAR RHYTHM - GI/Abdominal Exam GI & Abdominal Exam: Distended, Soft - Rectal Exam Rectal Exam: Deferred - Exam Exam: NORMAL INSPECTION Assessment and Plan (1) Cellulitis Status: Acute (2) Immunocompromised state Status: Acute (3) Pneumonia Status: Acute (4) [place] cell carcinoma Status: Chronic (5) Metastatic carcinoma Status: Chronic (6) Cellulitis, leg Status: Acute (7) HTN (hypertension) Status: Chronic
--- NOTE | 2017-01-27 12:39 | CARD ---
APPROVED REPORT EXAM: Two-dimensional and M-mode echocardiogram with Doppler and color Doppler. Other Information Quality : GoodRhythm : NSR INDICATION Atrial Fibrillation 2D DIMENSIONS IVSd1.08 (0.7-1.1cm)LVDd4.48 (3.9-5.9cm) LVOT Diameter2.19 (1.8-2.4cm)PWd1.16 (0.7-1.1cm) IVSs1.12 (0.8-1.2cm)LVDs3.48 (2.5-4.0cm) FS (%) 22.3 %PWs1.09 (0.8-1.2cm) M-Mode DIMENSIONS Left Atrium (MM)4.14 (2.5-4.0cm)IVSd1.09 (0.7-1.1cm) Aortic Root3.47 (2.2-3.7cm)LVDd5.26 (4.0-5.6cm) Aortic Cusp Exc.2.12 (1.5-2.0cm)PWd1.29 (0.7-1.1cm) IVSs1.46 cmFS (%) 35 % LVDs3.44 (2.0-3.8cm)PWs1.46 cm Mitral Valve MV E Alxwvpzw22.9cm/sMV DECEL [id number] A Mqipmsut36.5cm/s MV ZZQ27ogK/A ratio0.9MVA (PHT)3.39cm2 TDI Lateral E' Peak V9.53cm/sMedial E' Peak V8.88cm/sE/Lateral E'8.2 E/Medial E'8.8 LEFT VENTRICLE The left ventricle is normal size. There is normal left ventricular wall thickness. The left ventricular function is normal. The left ventricular ejection fraction is 60% There is normal LV segmental wall motion. The left ventricular diastolic function is normal. No left ventricle thrombus noted on this study. There is no ventricular septal defect visualized. There is no left ventricular aneurysm. There is no mass noted in the left ventricle. RIGHT VENTRICLE The right ventricle is normal size. There is normal right ventricular wall thickness. The right ventricular systolic function is normal. ATRIA The left atrium size is normal. The right atrium size is normal. The interatrial septum is intact with no evidence for an atrial septal defect. AORTIC VALVE The aortic valve is normal in structure and function. No aortic regurgitation is present. There is no aortic valvular stenosis. There is no aortic valvular vegetation. MITRAL VALVE The mitral valve is normal in structure and function. There is no evidence of mitral valve prolapse. There is no mitral valve stenosis. There is no mitral valve regurgitation noted. TRICUSPID VALVE The tricuspid valve is normal in structure and function. There is no tricuspid valve regurgitation noted. There is no tricuspid valve prolapse or vegetation. There is no tricuspid valve stenosis. PULMONIC VALVE The pulmonary valve is normal in structure and function. There is no pulmonic valvular regurgitation. There is no pulmonic valvular stenosis. GREAT VESSELS The aortic root is normal in size. The ascending aorta is normal in size. The pulmonary artery is normal. The IVC is normal in size and collapses >50% with inspiration. PERICARDIAL EFFUSION The pericardium appears normal. There is no pleural effusion. <Conclusion> Normal Echocardiogram
--- NOTE | 2017-01-27 12:41 | CT ---
PROCEDURE: CT Chest without contrast HISTORY: metastatic lung disease LLL RUL COMPARISON: 01/24/2017 TECHNIQUE: Contiguous axial images were obtained through the chest without intravenous contrast enhancement. Sagittal and coronal reconstructions were performed. Radiation dose (DLP): 753.08 mGy-cm. This CT exam was performed using one or more of the following dose reduction techniques: Automated exposure control, adjustment of the mA and/or kV according to patient size, and/or use of iterative reconstruction technique. FINDINGS: LUNGS: Probable subsegmental atelectasis in left lower lobe. No geoff pulmonary infiltrate. Minimal subsegmental atelectasis in right lower lobe. There is extensive pleural-based soft tissue density along the left posterior and lateral pleural surface extending inferiorly to the costophrenic sulcus and superiorly to the left apex. There is lobulation of this soft tissue with areas of thickening up to 8.3 cm at the inferior medial most extent and 7.0 cm at the inferior lateral extent. There are areas of central low attenuation consistent with central necrosis. There is an irregularly-shaped pleural-based mass in the right lung apex measuring roughly 2.9 x 4.4 cm. There is a pleural-based mass in the anterior left upper lobe measuring 1.2 cm. There is a 9 mm left upper lobe nodule. There is a 7 mm right lower lobe pulmonary nodule. There is a 7 mm nodule in the lateral segment of the right middle lobe. This is abuts the minor fissure. There is a 10 mm nodule in the posterior segment of the right upper lobe. There is pleural-based soft tissue along the left lateral superior mediastinal pleural surface. There is abnormal soft tissue seen along the superior left pericardial pleural surface. The findings are suspicious for widespread neoplasm, both parenchymal and pleural based. . MEDIASTINUM: Unremarkable thoracic aorta. No aneurysm. Normal-sized heart. Coronary arterial calcification. Central venous infusion port. Main pulmonary artery unremarkable. No vascular congestion. Shotty mediastinal nodes. No significantly enlarged mediastinal lymph nodes. PLEURA: As above. Trace dependent pleural effusion bilaterally. . BONES: No fracture. No destructive lesion. UPPER ABDOMEN: Grossly unremarkable. OTHER FINDINGS: None. IMPRESSION: Extensive pleural-based soft tissue throughout much of the left prudencio thorax and in the right apex, suspicious for neoplastic disease. Probable central necrosis within areas of the pleural-based soft tissue in the lower left prudencio thorax. Multiple pulmonary nodules. No significant lymphadenopathy. No acute infiltrate.
--- NOTE | 2017-01-27 12:48 | CARD ---
APPROVED REPORT EKG Measurement Heart [id number] <Conclusion> Atrial fibrillation with rapid ventricular response Left axis deviation Septal infarct, age undetermined Abnormal ECG
--- NOTE | 2017-01-27 13:33 | RAD ---
PROCEDURE: Left Knee Radiographs. HISTORY: Left knee swelling and Pain. No history of recent/ related trauma provided COMPARISON: 10/27/2016 FINDINGS: BONES: Satisfactory position alignment of components of the left TKA JOINTS: Expected postoperative findings JOINT EFFUSION: Suprapatellar joint effusion, moderate OTHER FINDINGS: None. IMPRESSION: Joint effusion, new finding compared to the prior study. Components of the left TKA are in stable and satisfactory position.
--- NOTE | 2017-01-27 13:49 | RAD ---
PROCEDURE: Right Index finger radiographs. HISTORY: pain and swelling index finger COMPARISON: None. TECHNIQUE: AP radiograph of the right hand, as well as spot oblique and lateral images of index finger were obtained. FINDINGS: RIGHT INDEX FINGER: No acute abnormalities. JOINTS: Severe osteoarthritic changes. SOFT TISSUES: Normal. OTHER FINDINGS: Old fracture 5th metacarpal. IMPRESSION: No acute findings related to/accounting for the clinical presentation.
--- NOTE | 2017-01-27 13:55 | CT ---
PROCEDURE: CT of left knee HISTORY: r/o septic arthritis COMPARISON: Not available TECHNIQUE: 2.5 mm contiguous axial sections were acquired through the left knee. Sagittal and coronal images were reformatted from the axial scan. FINDINGS: Evaluation of the prosthesis and the joint space is grossly limited due to beam hardening artifact arising from the metallic prosthesis. There is no evidence of prosthesis loosening. There is no acute osseous fracture. There is no osseous erosion or periosteal reaction appreciated. There is fluid within the suprapatellar bursa. The wall of the bursa appears thickened. There is heterogeneous low attenuation seen extending anteriorly, immediately above the superior patellar margin, towards the subcutaneous soft tissues. Significance uncertain. There are small nonspecific nodular calcifications seen within the soft tissues of the knee anterior to the suprapatellar bursa. IMPRESSION: Grossly limited evaluation of the knee due to prosthesis. Suprapatellar bursal fluid with thickened wall. Cannot rule out septic arthritis. Consider evaluation with aspiration of joint or suprapatellar bursa if clinically indicated. .
--- NOTE | 2017-01-27 17:39 | CP.PCM.CON ---
History of Present Illness - History of Present Illness History of Present Illness: Podiatry Consult Note - Dr. 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 Patient seen out of bed and in chair, NAD. Patient is accompanied by girlfriend at bedside. Patient states he has had this wound for approximately 4 months and has not been able to heal as patient believes it is being inhibited by chemotherapy. Patient's girlfriend states she takes off the extra skin around the wound almost every day, and dresses it with iodine and gauze. Patient states he has not been walking on his right toe wound; admits he has not been walking much recently because of left knee pain and swelling. Patient states this is his first time in 4 days he was able to be out of bed and walking on his feet. Patient denies any pain to his right 2nd toe at this visit. Patient denies any N/V/F/D/C/SOB/calf pain. Offers no other pedal complaints at this time. Review of Systems - Review of Systems All systems: reviewed and no additional remarkable complaints except (as per HPI ) Past Patient History - Infectious Disease Hx of Infectious Diseases: None - Tetanus Immunizations Tetanus Immunization: Unknown - Past Medical History & Family History Past Medical History?: Yes - Past Social History Smoking Status: Former Smoker Chewing Tobacco Use: No Cigar Use: No Alcohol: Social Drugs: Denies Home Situation {Lives}: Alone - CARDIAC Hx Hypertension: Yes - PULMONARY Hx Pneumonia: No - NEUROLOGICAL Hx Neurological Disorder: No - HEENT Other/Comment: Significant hearing loss. 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 - MUSCULOSKELETAL/RHEUMATOLOGICAL Hx Degenerative Joint Disease: Yes - GASTROINTESTINAL Hx Gastritis: Yes - GENITOURINARY/GYNECOLOGICAL Hx Genitourinary Disorders: No - PSYCHIATRIC Hx Anxiety: Yes Hx Substance Use: No Other/Comment: Insomnia. - SURGICAL HISTORY Hx Arthroscopy: Yes (left knee) Other/Comment: Excision of tumor on the scalp. Chest tube placement for pleural effusion followed by pleurodesis. - ANESTHESIA Hx Anesthesia: Yes Hx Anesthesia Reactions: No Hx Malignant Hyperthermia: No Meds Allergies/Adverse Reactions: Allergies Allergy/AdvReac Type Severity Reaction Status Date / Time No Known Allergies Allergy Verified 01/24/17 10:23 - Medications Medications: Current Medications Acetaminophen (Tylenol 325mg Tab) 650 mg PO Q6 PRN PRN Reason: Fever >100.4 F Al Hydrox/Mg Hydrox/Simethicone (Maalox Plus 30 Ml) 30 ml PO Q6 PRN PRN Reason: Indigestion / Heartburn Last Admin: 01/26/17 15:58 Dose: 30 ml Aspirin (Ecotrin) 81 mg PO Q12 [facility] Last Admin: 01/27/17 08:47 Dose: 81 mg Bacitracin (Bacitracin Oint) 1 applic TOP DAILY [facility] Last Admin: 01/27/17 08:52 Dose: 1 applic Benzocaine/Menthol (Cepacol Sore Throat) 1 lul PO Q3 PRN PRN Reason: Sore Throat Last Admin: 01/26/17 18:28 Dose: 1 lul Docusate Sodium (Colace) 100 mg PO BID [facility] Last Admin: 01/27/17 16:20 Dose: Not Given Hydrochlorothiazide (Hydrodiuril) 25 mg PO DAILY [facility] Last Admin: 01/26/17 09:21 Dose: Not Given Vancomycin HCl 1 gm/ Sodium (Chloride) 250 mls @ 250 mls/hr IVPB Q12H [facility] PRN Reason: Protocol Last Admin: 01/27/17 08:50 Dose: 250 mls/hr Piperacillin Sod/Tazobactam (Sod 3.375 gm/ Sodium Chloride) 100 mls @ 100 mls/ hr IVPB Q6 [facility] PRN Reason: Protocol Last Admin: 01/27/17 16:19 Dose: 100 mls/hr Fluconazole (Diflucan Iv 200 Mg/100 Ml Ns) 100 mls @ 100 mls/hr IVPB DAILY [facility] Stop: 01/30/17 21:00 Last Admin: 01/27/17 08:37 Dose: 100 mls/hr Metoprolol Tartrate (Lopressor) 25 mg PO Q12 [facility] Last Admin: 01/27/17 08:46 Dose: 25 mg Morphine Sulfate (Morphine) 1 mg IVP Q4 PRN PRN Reason: Pain, moderate (4-7) Morphine Sulfate (Morphine) 2 mg IVP Q4 PRN PRN Reason: Pain, severe (8-10) Last Admin: 01/24/17 13:17 Dose: 2 mg Ondansetron HCl (Zofran Inj) 4 mg IVP Q6 PRN PRN Reason: Nausea/Vomiting Pantoprazole Sodium (Protonix Ec Tab) 40 mg PO DAILY [facility] Last Admin: 01/27/17 08:47 Dose: 40 mg Zolpidem Tartrate (Ambien) 5 mg PO HS PRN PRN Reason: Insomnia Last Admin: 01/25/17 21:28 Dose: 5 mg Physical Exam - Constitutional Appears: Well, Non-toxic, No Acute Distress - Extremities Exam Additional comments: RLE focused physical exam: Vasc: DP and PT pulses palpable 2/4. CFT <3 seconds to all digits. TG cool to warm. No edema noted. No increase in warmth right 2nd digit Neuro: Gross sensation slightly diminished. Derm: Ulceration measuring approximately 0.3 x 0.3 x 0.3 cm noted to plantar aspect of 2nd digit distal tuft - ulcer is noted to have a 100% granular base and hyperkeratotic rim. Approximately 0.5 cc of purulence was expressed from ulceration. No malodor, fluctuance, probe to bone noted. Ortho: Tenderness to palpation right 2nd digit. 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 - Neurological Exam Neurological exam: Alert, Oriented x3 - Psychiatric Exam Psychiatric exam: Normal Affect, Normal Mood Results - Vital Signs Recent Vital Signs: Last Vital Signs Temp 99 F 01/27/17 16:23 Pulse 92 H 01/27/17 16:23 Resp 20 01/27/17 16:23 BP 137/78 01/27/17 16:23 Pulse Ox 96 01/27/17 16:23 - Labs Result Diagrams: 01/27/17 10:20 01/25/17 06:00 Labs: Laboratory Results - last 24 hr 01/26/17 01/26/17 01/27/17 09:30 23:30 10:20 WBC 5.1 D 8.1 D RBC 3.80 L 3.92 L Hgb 9.5 L 10.0 L Hct 29.0 L 29.5 L MCV 76.3 L 75.2 L MCH 24.9 L 25.5 L MCHC 32.7 L 33.9 RDW 17.6 H 17.5 H Plt Count 142 157 MPV 8.1 Neut % (Auto) 82.4 H Lymph % (Auto) 10.4 L [place] % (Auto) 7.0 Eos % (Auto) 0.1 Baso % (Auto) 0.1 Neut # 6.7 Lymph # 0.8 L [place] # 0.6 Eos # 0.0 Baso # 0.0 Blood Type O POSITIVE Antibody Screen Negative Crossmatch See Detail BBK History Checked Patient has bt Assessment & Plan - Assessment and Plan (Free Text) Assessment: 76 year old male patient PMH [place]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 Treadwell Labs and vitals reviewed = WBC 8.1 (increasing), afebrile Excisional debridment of ulceration measuring 0.3 x 0.3 x 0.3 cm, removal of hyperkeratotic tissue down to healthy tissue; hyperkeratosis was removed. Ulceration was performed using a #15 blade without incident. The debridement extended from skin into subcutaneous tissue. Approximately 0.5 cc purulence expressed from ulceration -Wound culture taken, awaiting report Surgical shoe ordered Patient tolerated procedure well Right 2nd digit was dressed with DSD -Daily applications of Bacitracin to ulceration Podiatry will continue to follow while in house
[2017-01-27] MEDS: Benzocaine/Menthol (Cepacol) Lozenge PO PRN (18:05)
[2017-01-28] MEDS: Piperacillin/Tazobact 3.375 GM in Sodium Chloride 0.9% 100 ML IVPB SCH ×4 (04:29→22:20)
[2017-01-28 05:39] LABS: BASO % 0.2 % (0.0-2.0); HEMATOCRIT 29.8 % (35.0-51.0); LYMPH # 1.2 K/uL (1.0-4.3); LYMPH % 5.7 % (20.0-40.0); MEAN CELL VOLUME 76.2 fl (80.0-94.0); MEAN CORPUSCULAR HEMOGLOBIN 24.5 pg (27.0-31.0); MEAN CORPUSCULAR HGB CONC 32.1 g/dL (33.0-37.0); MEAN PLATELET VOLUME 8.1 fl (7.2-11.7); MONO # 0.7 K/uL (0.0-0.8); MONO % 3.5 % (0.0-10.0); PLATELET COUNT 160 K/uL (130-400); RED CELL DISTRIBUTION WIDTH 17.9 % (11.5-14.5); WHITE BLOOD COUNT 20.9 K/uL (4.8-10.8)
[2017-01-28 05:40] LABS: BLOOD UREA NITROGEN 13 mg/dl (9-20); CARBON DIOXIDE 26 mmol/L (22-30); CHLORIDE 101 mmol/L (98-107); GFR AFRICAN-AMERICAN > 60; GLUCOSE,RANDOM 86 mg/dL (75-110); SODIUM 136 mmol/l (132-148)
--- NOTE | 2017-01-28 08:04 | CP.PCM.PN ---
Subjective - Date & Time of Evaluation Date of Evaluation: 01/28/17 Time of Evaluation: 08:02 - Subjective Subjective: Podiatry Progress Note - Dr. Treadwell 76 year old male patient PMHx [place] cell carcinoma with lung metastasis, left knee effusion seen at bedside in telemetry for right 2nd digit wound. Patient seen resting in bed comfortably at time of visit. Patient denies any acute overnight events. Patient denies any pain to his right 2nd toe currently. Patient states he has not been able to ambulate due to increased left knee pain , however is aware is to ambulate using a surgical shoe to right foot. Patient denies N/V/F/D/C/SOB/calf pain. Offers no other pedal complaints at this time. Objective - Vital Signs/Intake and Output Vital Signs (last 24 hours): Temp Pulse Resp BP Pulse Ox 98.6 F 74 19 125/71 95 01/28/17 04:55 01/28/17 04:55 01/28/17 04:55 01/28/17 04:55 01/28/17 04:55 - Medications Medications: Current Medications Acetaminophen (Tylenol 325mg Tab) 650 mg PO Q6 PRN PRN Reason: Fever >100.4 F Al Hydrox/Mg Hydrox/Simethicone (Maalox Plus 30 Ml) 30 ml PO Q6 PRN PRN Reason: Indigestion / Heartburn Last Admin: 01/26/17 15:58 Dose: 30 ml Aspirin (Ecotrin) 81 mg PO Q12 [facility] Last Admin: 01/27/17 22:09 Dose: 81 mg Bacitracin (Bacitracin Oint) 1 applic TOP DAILY [facility] Last Admin: 01/27/17 08:52 Dose: 1 applic Benzocaine/Menthol (Cepacol Sore Throat) 1 lul PO Q3 PRN PRN Reason: Sore Throat Last Admin: 01/27/17 18:05 Dose: 1 lul Docusate Sodium (Colace) 100 mg PO BID [facility] Last Admin: 01/27/17 16:20 Dose: Not Given Hydrochlorothiazide (Hydrodiuril) 25 mg PO DAILY [facility] Last Admin: 01/26/17 09:21 Dose: Not Given Vancomycin HCl 1 gm/ Sodium (Chloride) 250 mls @ 250 mls/hr IVPB Q12H [facility] PRN Reason: Protocol Last Admin: 01/27/17 22:08 Dose: 250 mls/hr Piperacillin Sod/Tazobactam (Sod 3.375 gm/ Sodium Chloride) 100 mls @ 100 mls/ hr IVPB Q6 [facility] PRN Reason: Protocol Last Admin: 01/28/17 04:29 Dose: 100 mls/hr Fluconazole (Diflucan Iv 200 Mg/100 Ml Ns) 100 mls @ 100 mls/hr IVPB DAILY [facility] Stop: 01/30/17 21:00 Last Admin: 01/27/17 08:37 Dose: 100 mls/hr Metoprolol Tartrate (Lopressor) 25 mg PO Q12 [facility] Last Admin: 01/27/17 22:11 Dose: 25 mg Morphine Sulfate (Morphine) 1 mg IVP Q4 PRN PRN Reason: Pain, moderate (4-7) Morphine Sulfate (Morphine) 2 mg IVP Q4 PRN PRN Reason: Pain, severe (8-10) Last Admin: 01/24/17 13:17 Dose: 2 mg Ondansetron HCl (Zofran Inj) 4 mg IVP Q6 PRN PRN Reason: Nausea/Vomiting Pantoprazole Sodium (Protonix Ec Tab) 40 mg PO DAILY [facility] Last Admin: 01/27/17 08:47 Dose: 40 mg Zolpidem Tartrate (Ambien) 5 mg PO HS PRN PRN Reason: Insomnia Last Admin: 01/25/17 21:28 Dose: 5 mg - Labs Labs: 01/28/17 04:35 01/28/17 04:35 PT 15.8 Seconds (9.8-13.1) H 01/24/17 10:50 INR 1.4 (0.9-1.2) H 01/24/17 10:50 - Constitutional Appears: Well, Non-toxic, No Acute Distress - Extremities Exam Additional comments: RLE focused physical exam: Vasc: DP and PT pulses palpable 2/4. CFT <3 seconds to all digits. Temperature gradient warm to warm. No edema noted. No increase in warmth right 2nd digit Neuro: Gross sensation slightly diminished. Derm: Ulceration measuring approximately 0.3 x 0.3 x 0.3 cm noted to plantar aspect of 2nd digit distal tuft - ulcer is noted to have a 100% granular base and hyperkeratotic rim. No purulence expressed from this visit. No malodor, no fluctuance, no probe to bone noted. Ortho: No tenderness to palpation right 2nd digit. 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 Treadwell Labs and vitals reviewed = WBC 20.9 (trending upwards - yesterday 01/27 @ 8.1, 01/26 5.1), afebrile No purulence was expressed from ulceration at this visit F/U right 2nd digit plantar ulcer wound culture final report Surgical shoe ordered, FWB to right foot in surgical shoe - nursing made aware Bacitracin applied to ulceration and dressed with DSD Continue with abx per ID = Zosyn, Vancomycin Podiatry will continue to follow patient while in house
[2017-01-28] MEDS ORDERED: Potassium Chloride 20 mEq ER Tab PO STA (08:05)
[2017-01-28] MEDS: Bacitracin OINT 15GM TOP SCH (08:44)
[2017-01-28] MEDS: Pantoprazole 40 mg EC Tab PO SCH (08:45)
--- NOTE | 2017-01-28 09:04 | CP.PCM.PN ---
Subjective - Date & Time of Evaluation Date of Evaluation: 01/28/17 Time of Evaluation: 08:40 - Subjective Subjective: Pt alert, awake and coherent Afebrile Telemetry shows steady sinus rhythm at physiologic rates BP 124/70 mm Hg Echo does not show any pericardial effusion LVEF well preserved (Clinically no signs of CHF) Will sign off the case call me as needed. Objective - Vital Signs/Intake and Output Vital Signs (last 24 hours): Temp Pulse Resp BP Pulse Ox 98.3 F 79 18 130/78 95 01/28/17 08:00 01/28/17 08:45 01/28/17 08:00 01/28/17 08:45 01/28/17 08:00 - Medications Medications: Current Medications Acetaminophen (Tylenol 325mg Tab) 650 mg PO Q6 PRN PRN Reason: Fever >100.4 F Al Hydrox/Mg Hydrox/Simethicone (Maalox Plus 30 Ml) 30 ml PO Q6 PRN PRN Reason: Indigestion / Heartburn Last Admin: 01/26/17 15:58 Dose: 30 ml Aspirin (Ecotrin) 81 mg PO Q12 [facility] Last Admin: 01/28/17 08:46 Dose: 81 mg Bacitracin (Bacitracin Oint) 1 applic TOP DAILY [facility] Last Admin: 01/28/17 08:44 Dose: 1 applic Benzocaine/Menthol (Cepacol Sore Throat) 1 lul PO Q3 PRN PRN Reason: Sore Throat Last Admin: 01/27/17 18:05 Dose: 1 lul Docusate Sodium (Colace) 100 mg PO BID [facility] Last Admin: 01/28/17 08:46 Dose: 100 mg Hydrochlorothiazide (Hydrodiuril) 25 mg PO DAILY [facility] Last Admin: 01/26/17 09:21 Dose: Not Given Vancomycin HCl 1 gm/ Sodium (Chloride) 250 mls @ 250 mls/hr IVPB Q12H [facility] PRN Reason: Protocol Last Admin: 01/28/17 08:47 Dose: 250 mls/hr Piperacillin Sod/Tazobactam (Sod 3.375 gm/ Sodium Chloride) 100 mls @ 100 mls/ hr IVPB Q6 [facility] PRN Reason: Protocol Last Admin: 01/28/17 04:29 Dose: 100 mls/hr Fluconazole (Diflucan Iv 200 Mg/100 Ml Ns) 100 mls @ 100 mls/hr IVPB DAILY [facility] Stop: 01/30/17 21:00 Last Admin: 01/27/17 08:37 Dose: 100 mls/hr Metoprolol Tartrate (Lopressor) 25 mg PO Q12 [facility] Last Admin: 01/28/17 08:45 Dose: 25 mg Morphine Sulfate (Morphine) 1 mg IVP Q4 PRN PRN Reason: Pain, moderate (4-7) Morphine Sulfate (Morphine) 2 mg IVP Q4 PRN PRN Reason: Pain, severe (8-10) Last Admin: 01/24/17 13:17 Dose: 2 mg Ondansetron HCl (Zofran Inj) 4 mg IVP Q6 PRN PRN Reason: Nausea/Vomiting Pantoprazole Sodium (Protonix Ec Tab) 40 mg PO DAILY [facility] Last Admin: 01/28/17 08:45 Dose: 40 mg Zolpidem Tartrate (Ambien) 5 mg PO HS PRN PRN Reason: Insomnia Last Admin: 01/25/17 21:28 Dose: 5 mg - Labs Labs: 01/28/17 04:35 01/28/17 04:35 PT 15.8 Seconds (9.8-13.1) H 01/24/17 10:50 INR 1.4 (0.9-1.2) H 01/24/17 10:50
[2017-01-28 10:10] LABS: METAMYELOCYTE 1 % (0-0); MYELOCYTE 3 % (0-0); NEUTROPHIL 63 % (42-75); REACTIVE LYMPHOCYTES 4 % (0-0); TOTAL CELLS COUNTED 100
[2017-01-28 10:12] LABS: PLATELET CLUMPS PRESENT
[2017-01-28 10:15] LABS: NEUT % 90.6 % (50.0-75.0)
[2017-01-28] MEDS: Fluconazole IV 200mg/100 ml NS 100 ML IVPB SCH (10:58)
--- NOTE | 2017-01-28 11:33 | CP.PCM.PN ---
Subjective - Date & Time of Evaluation Date of Evaluation: 01/28/17 Time of Evaluation: 11:31 - Subjective Subjective: Pt is afebrile and is feeling better. He still has pain in the left knee and there is still some swelling. the Ct scan done yesterday showed significant amount of fluid in the joint and te radiologist suggests removal of the fluid to see if this is septic. Objective - Vital Signs/Intake and Output Vital Signs (last 24 hours): Temp Pulse Resp BP Pulse Ox 98.3 F 79 18 130/78 95 01/28/17 08:00 01/28/17 08:45 01/28/17 08:00 01/28/17 08:45 01/28/17 08:00 - Medications Medications: Current Medications Acetaminophen (Tylenol 325mg Tab) 650 mg PO Q6 PRN PRN Reason: Fever >100.4 F Al Hydrox/Mg Hydrox/Simethicone (Maalox Plus 30 Ml) 30 ml PO Q6 PRN PRN Reason: Indigestion / Heartburn Last Admin: 01/26/17 15:58 Dose: 30 ml Aspirin (Ecotrin) 81 mg PO Q12 [facility] Last Admin: 01/28/17 08:46 Dose: 81 mg Bacitracin (Bacitracin Oint) 1 applic TOP DAILY [facility] Last Admin: 01/28/17 08:44 Dose: 1 applic Benzocaine/Menthol (Cepacol Sore Throat) 1 lul PO Q3 PRN PRN Reason: Sore Throat Last Admin: 01/27/17 18:05 Dose: 1 lul Docusate Sodium (Colace) 100 mg PO BID [facility] Last Admin: 01/28/17 08:46 Dose: 100 mg Hydrochlorothiazide (Hydrodiuril) 25 mg PO DAILY [facility] Last Admin: 01/26/17 09:21 Dose: Not Given Vancomycin HCl 1 gm/ Sodium (Chloride) 250 mls @ 250 mls/hr IVPB Q12H [facility] PRN Reason: Protocol Last Admin: 01/28/17 08:47 Dose: 250 mls/hr Piperacillin Sod/Tazobactam (Sod 3.375 gm/ Sodium Chloride) 100 mls @ 100 mls/ hr IVPB Q6 [facility] PRN Reason: Protocol Last Admin: 01/28/17 10:57 Dose: 100 mls/hr Fluconazole (Diflucan Iv 200 Mg/100 Ml Ns) 100 mls @ 100 mls/hr IVPB DAILY [facility] Stop: 01/30/17 21:00 Last Admin: 01/28/17 10:58 Dose: 100 mls/hr Metoprolol Tartrate (Lopressor) 25 mg PO Q12 [facility] Last Admin: 01/28/17 08:45 Dose: 25 mg Morphine Sulfate (Morphine) 1 mg IVP Q4 PRN PRN Reason: Pain, moderate (4-7) Morphine Sulfate (Morphine) 2 mg IVP Q4 PRN PRN Reason: Pain, severe (8-10) Last Admin: 01/24/17 13:17 Dose: 2 mg Ondansetron HCl (Zofran Inj) 4 mg IVP Q6 PRN PRN Reason: Nausea/Vomiting Pantoprazole Sodium (Protonix Ec Tab) 40 mg PO DAILY [facility] Last Admin: 01/28/17 08:45 Dose: 40 mg Zolpidem Tartrate (Ambien) 5 mg PO HS PRN PRN Reason: Insomnia Last Admin: 01/25/17 21:28 Dose: 5 mg - Labs Labs: 01/28/17 04:35 01/28/17 04:35 PT 15.8 Seconds (9.8-13.1) H 01/24/17 10:50 INR 1.4 (0.9-1.2) H 01/24/17 10:50
--- NOTE | 2017-01-28 12:17 | CP.PCM.PN ---
Subjective - Date & Time of Evaluation Date of Evaluation: 01/28/17 Time of Evaluation: 11:30 - Subjective Subjective: No fever left knee pain better right index finger pain and swelling very much better after incision and drainage. denies CP no SOB occ cough no abd pain Objective - Vital Signs/Intake and Output Vital Signs (last 24 hours): Temp Pulse Resp BP Pulse Ox 98.3 F 79 18 130/78 95 01/28/17 08:00 01/28/17 08:45 01/28/17 08:00 01/28/17 08:45 01/28/17 08:00 - Medications Medications: Current Medications Acetaminophen (Tylenol 325mg Tab) 650 mg PO Q6 PRN PRN Reason: Fever >100.4 F Al Hydrox/Mg Hydrox/Simethicone (Maalox Plus 30 Ml) 30 ml PO Q6 PRN PRN Reason: Indigestion / Heartburn Last Admin: 01/26/17 15:58 Dose: 30 ml Aspirin (Ecotrin) 81 mg PO Q12 [facility] Last Admin: 01/28/17 08:46 Dose: 81 mg Bacitracin (Bacitracin Oint) 1 applic TOP DAILY [facility] Last Admin: 01/28/17 08:44 Dose: 1 applic Benzocaine/Menthol (Cepacol Sore Throat) 1 lul PO Q3 PRN PRN Reason: Sore Throat Last Admin: 01/27/17 18:05 Dose: 1 lul Docusate Sodium (Colace) 100 mg PO BID [facility] Last Admin: 01/28/17 08:46 Dose: 100 mg Hydrochlorothiazide (Hydrodiuril) 25 mg PO DAILY [facility] Last Admin: 01/26/17 09:21 Dose: Not Given Vancomycin HCl 1 gm/ Sodium (Chloride) 250 mls @ 250 mls/hr IVPB Q12H [facility] PRN Reason: Protocol Last Admin: 01/28/17 08:47 Dose: 250 mls/hr Piperacillin Sod/Tazobactam (Sod 3.375 gm/ Sodium Chloride) 100 mls @ 100 mls/ hr IVPB Q6 [facility] PRN Reason: Protocol Last Admin: 01/28/17 10:57 Dose: 100 mls/hr Fluconazole (Diflucan Iv 200 Mg/100 Ml Ns) 100 mls @ 100 mls/hr IVPB DAILY [facility] Stop: 01/30/17 21:00 Last Admin: 01/28/17 10:58 Dose: 100 mls/hr Metoprolol Tartrate (Lopressor) 25 mg PO Q12 [facility] Last Admin: 01/28/17 08:45 Dose: 25 mg Morphine Sulfate (Morphine) 1 mg IVP Q4 PRN PRN Reason: Pain, moderate (4-7) Morphine Sulfate (Morphine) 2 mg IVP Q4 PRN PRN Reason: Pain, severe (8-10) Last Admin: 01/24/17 13:17 Dose: 2 mg Ondansetron HCl (Zofran Inj) 4 mg IVP Q6 PRN PRN Reason: Nausea/Vomiting Pantoprazole Sodium (Protonix Ec Tab) 40 mg PO DAILY [facility] Last Admin: 01/28/17 08:45 Dose: 40 mg Zolpidem Tartrate (Ambien) 5 mg PO HS PRN PRN Reason: Insomnia Last Admin: 01/25/17 21:28 Dose: 5 mg - Labs Labs: 01/28/17 04:35 01/28/17 04:35 PT 15.8 Seconds (9.8-13.1) H 01/24/17 10:50 INR 1.4 (0.9-1.2) H 01/24/17 10:50 - Constitutional Appears: Non-toxic, No Acute Distress, Chronically Ill - Head Exam Head Exam: NORMAL INSPECTION, NORMOCEPHALIC - Eye Exam Eye Exam: EOMI, Normal appearance Pupil Exam: NORMAL ACCOMODATION - ENT Exam ENT Exam: Mucous Membranes Moist, Normal External Ear Exam - Neck Exam Neck Exam: Full ROM. absent: Meningismus - Respiratory Exam Respiratory Exam: Decreased Breath Sounds, Rales, NORMAL BREATHING PATTERN. absent: Respiratory Distress - Cardiovascular Exam Cardiovascular Exam: REGULAR RHYTHM, +S1, +S2 - GI/Abdominal Exam GI & Abdominal Exam: Soft, Normal Bowel Sounds. absent: Tenderness - Extremities Exam Extremities Exam: Normal Capillary Refill. absent: Calf Tenderness, Pedal Edema Additional comments: left knee effusion right foot 2nd digit with ulcer with dressing right index finger abscess drained , now nontender - Back Exam Back Exam: absent: CVA tenderness (L), CVA tenderness (R) - Neurological Exam Neurological Exam: Alert, Awake, Oriented x3 Neuro motor strength exam: Left Upper Extremity: 5, Right Upper Extremity: 5, Left Lower Extremity: 5, Right Lower Extremity: 5 - Psychiatric Exam Psychiatric exam: Normal Affect, Normal Mood - Skin Skin Exam: Dry, Normal Color, Warm Assessment and Plan - Assessment and Plan (Free Text) Assessment: 76 y/o gent with hx of HTN, [place] Cancer , 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 Noted to be febrile, neutropenic on admission, started on IV antibiotics and given Neupogen. Also developed A fib with RVR w/c resolved with a dose of IV cardizem. CT of chest :Extensive pleural-based soft tissue throughout much of the left prudencio thorax and in the right apex, suspicious for neoplastic disease. Probable central necrosis within areas of the pleural-based soft tissue in the lower left prudencio thorax. Multiple pulmonary nodules. No significant lymphadenopathy. No acute infiltrate. 1. Question of Pneumonia CT of chest : no acute infiltrate however noted multiple pulm nodules and pleural based soft tissue mass empirically on IV Zosyn and Vanco Blood c/s: negative so far , Sputum c/s pending Pulm consulted- Dr Rodriguez is following pt Mycoplasma ag IG + however , IgM pending Strep ag negative 2. Episode of atrial fibrillation with rvr resolved with IV Cardizem now SR Cardio consulted 3. 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 Right 1st digit pain/abscess s/p I&D Wound c/s ID consulted pt on IV Zosyn and Vanco 5. Left knee effusion Ortho consult : Dr Del Angel CT of the knee Plan for&D in am Pt medically optimized for the procedure Cardio consulted, ECHO : normal LV function, low cardiac risk NPO from [place] 6.Hypertension, chronic cont Metoprolol 7. Right foot 2nd digit ulcer - was able to express out some purulent discharge Podiatry consulted Pt is on IV abx Wound c/s : Gram neg rods and Gram + cocci DVT proph - hold anticoag as pt for surgery in am
--- NOTE | 2017-01-28 12:45 | CP.PCM.PN ---
Subjective - Date & Time of Evaluation Date of Evaluation: 01/28/17 Time of Evaluation: 12:00 - Subjective Subjective: Patient seen and examined with Dr. Del Angel Patient states that left knee is feeling better. He says that right index finger feels much better after they took out fluid. No new complaints. Review of Systems - Constitutional Additional comments: denies fever chills - Cardiovascular Cardiovascular: UNREMARKABLE - Respiratory Respiratory: UNREMARKABLE - Gastrointestinal Gastrointestinal: UNREMARKABLE - Genitourinary Genitourinary: UNREMARKABLE - Musculoskeletal Musculoskeletal: As Par HPI - Integumentary Integumentary: As Per HPI - Neurological Neurological: UNREMARKABLE - Endocrine Endocrine: UNREMARKABLE - Hematologic/Lymphatic Hematologic: UNREMARKABLE Objective - Vital Signs/Intake and Output Vital Signs (last 24 hours): Temp Pulse Resp BP Pulse Ox 98.3 F 79 18 130/78 95 01/28/17 08:00 01/28/17 08:45 01/28/17 08:00 01/28/17 08:45 01/28/17 08:00 - Medications Medications: Current Medications Acetaminophen (Tylenol 325mg Tab) 650 mg PO Q6 PRN PRN Reason: Fever >100.4 F Al Hydrox/Mg Hydrox/Simethicone (Maalox Plus 30 Ml) 30 ml PO Q6 PRN PRN Reason: Indigestion / Heartburn Last Admin: 01/26/17 15:58 Dose: 30 ml Aspirin (Ecotrin) 81 mg PO Q12 [facility] Last Admin: 01/28/17 08:46 Dose: 81 mg Bacitracin (Bacitracin Oint) 1 applic TOP DAILY [facility] Last Admin: 01/28/17 08:44 Dose: 1 applic Benzocaine/Menthol (Cepacol Sore Throat) 1 lul PO Q3 PRN PRN Reason: Sore Throat Last Admin: 01/27/17 18:05 Dose: 1 lul Docusate Sodium (Colace) 100 mg PO BID [facility] Last Admin: 01/28/17 08:46 Dose: 100 mg Hydrochlorothiazide (Hydrodiuril) 25 mg PO DAILY [facility] Last Admin: 01/26/17 09:21 Dose: Not Given Vancomycin HCl 1 gm/ Sodium (Chloride) 250 mls @ 250 mls/hr IVPB Q12H [facility] PRN Reason: Protocol Last Admin: 01/28/17 08:47 Dose: 250 mls/hr Piperacillin Sod/Tazobactam (Sod 3.375 gm/ Sodium Chloride) 100 mls @ 100 mls/ hr IVPB Q6 [facility] PRN Reason: Protocol Last Admin: 01/28/17 10:57 Dose: 100 mls/hr Fluconazole (Diflucan Iv 200 Mg/100 Ml Ns) 100 mls @ 100 mls/hr IVPB DAILY [facility] Stop: 01/30/17 21:00 Last Admin: 01/28/17 10:58 Dose: 100 mls/hr Metoprolol Tartrate (Lopressor) 25 mg PO Q12 [facility] Last Admin: 01/28/17 08:45 Dose: 25 mg Morphine Sulfate (Morphine) 1 mg IVP Q4 PRN PRN Reason: Pain, moderate (4-7) Morphine Sulfate (Morphine) 2 mg IVP Q4 PRN PRN Reason: Pain, severe (8-10) Last Admin: 01/24/17 13:17 Dose: 2 mg Ondansetron HCl (Zofran Inj) 4 mg IVP Q6 PRN PRN Reason: Nausea/Vomiting Pantoprazole Sodium (Protonix Ec Tab) 40 mg PO DAILY [facility] Last Admin: 01/28/17 08:45 Dose: 40 mg Zolpidem Tartrate (Ambien) 5 mg PO HS PRN PRN Reason: Insomnia Last Admin: 01/25/17 21:28 Dose: 5 mg - Labs Labs: 01/28/17 04:35 01/28/17 04:35 PT 15.8 Seconds (9.8-13.1) H 01/24/17 10:50 INR 1.4 (0.9-1.2) H 01/24/17 10:50 - Constitutional Appears: Well, No Acute Distress - Respiratory Exam Respiratory Exam: NORMAL BREATHING PATTERN - Cardiovascular Exam Additional comments: calves soft NT neg homans +DP/PT pulses - Extremities Exam Additional comments: Left knee: still moderate to large joint effusion. Not warm. No erythema. ROM 0- 60 with pain. needs assistance to extend knee. Calves soft NT neg homans. Skin intact, incision well healed. +DP pulse, sensation itnact Right index finger: improved. no palpable collection now, much less tender. erythema improved. No active drainage - Neurological Exam Neurological Exam: Alert, Awake, Oriented x3 Neuro motor strength exam: Left Lower Extremity: 5 (ankle DF/PF, knee ROM restricted due to pain) - Psychiatric Exam Psychiatric exam: Normal Affect, Normal Mood - Skin Skin Exam: Dry, Intact, Normal Color, Warm Additional comments: left knee: intact, warm, nl color Assessment and Plan (1) Knee effusion, left Assessment & Plan: per Dr. Del Angel, will plan for I&D/aspiration/possible arthroscopy 01/29 of left knee r/o hemarthrosis vs infection labs in am NPO p MN request medical clearance for procedure Status: Acute
--- NOTE | 2017-01-28 12:57 | CP.PCM.PN ---
Subjective - Date & Time of Evaluation Date of Evaluation: 01/28/17 Time of Evaluation: 10:00 - Subjective Subjective: awake alert NAD no fever or chills less swelling of finger less pain left knee right foot wound drained Objective - Vital Signs/Intake and Output Vital Signs (last 24 hours): Temp Pulse Resp BP Pulse Ox 98.2 F 83 18 152/83 H 98 01/28/17 12:00 01/28/17 12:00 01/28/17 12:00 01/28/17 12:00 01/28/17 12:00 - Medications Medications: Current Medications Acetaminophen (Tylenol 325mg Tab) 650 mg PO Q6 PRN PRN Reason: Fever >100.4 F Al Hydrox/Mg Hydrox/Simethicone (Maalox Plus 30 Ml) 30 ml PO Q6 PRN PRN Reason: Indigestion / Heartburn Last Admin: 01/26/17 15:58 Dose: 30 ml Aspirin (Ecotrin) 81 mg PO Q12 [facility] Last Admin: 01/28/17 08:46 Dose: 81 mg Bacitracin (Bacitracin Oint) 1 applic TOP DAILY [facility] Last Admin: 01/28/17 08:44 Dose: 1 applic Benzocaine/Menthol (Cepacol Sore Throat) 1 lul PO Q3 PRN PRN Reason: Sore Throat Last Admin: 01/27/17 18:05 Dose: 1 lul Docusate Sodium (Colace) 100 mg PO BID [facility] Last Admin: 01/28/17 08:46 Dose: 100 mg Hydrochlorothiazide (Hydrodiuril) 25 mg PO DAILY [facility] Last Admin: 01/26/17 09:21 Dose: Not Given Vancomycin HCl 1 gm/ Sodium (Chloride) 250 mls @ 250 mls/hr IVPB Q12H [facility] PRN Reason: Protocol Last Admin: 01/28/17 08:47 Dose: 250 mls/hr Piperacillin Sod/Tazobactam (Sod 3.375 gm/ Sodium Chloride) 100 mls @ 100 mls/ hr IVPB Q6 [facility] PRN Reason: Protocol Last Admin: 01/28/17 10:57 Dose: 100 mls/hr Fluconazole (Diflucan Iv 200 Mg/100 Ml Ns) 100 mls @ 100 mls/hr IVPB DAILY [facility] Stop: 01/30/17 21:00 Last Admin: 01/28/17 10:58 Dose: 100 mls/hr Metoprolol Tartrate (Lopressor) 25 mg PO Q12 [facility] Last Admin: 01/28/17 08:45 Dose: 25 mg Morphine Sulfate (Morphine) 1 mg IVP Q4 PRN PRN Reason: Pain, moderate (4-7) Morphine Sulfate (Morphine) 2 mg IVP Q4 PRN PRN Reason: Pain, severe (8-10) Last Admin: 01/24/17 13:17 Dose: 2 mg Ondansetron HCl (Zofran Inj) 4 mg IVP Q6 PRN PRN Reason: Nausea/Vomiting Pantoprazole Sodium (Protonix Ec Tab) 40 mg PO DAILY [facility] Last Admin: 01/28/17 08:45 Dose: 40 mg Zolpidem Tartrate (Ambien) 5 mg PO HS PRN PRN Reason: Insomnia Last Admin: 01/25/17 21:28 Dose: 5 mg - Labs Labs: 01/28/17 04:35 01/28/17 04:35 PT 15.8 Seconds (9.8-13.1) H 01/24/17 10:50 INR 1.4 (0.9-1.2) H 01/24/17 10:50 - Constitutional Appears: Non-toxic, Cachectic, Chronically Ill - Head Exam Head Exam: ATRAUMATIC, NORMAL INSPECTION, NORMOCEPHALIC - Eye Exam Eye Exam: PERRL. absent: Scleral icterus - ENT Exam ENT Exam: Mucous Membranes Dry - Neck Exam Neck Exam: absent: Lymphadenopathy - Respiratory Exam Respiratory Exam: Decreased Breath Sounds, Rhonchi - Cardiovascular Exam Cardiovascular Exam: REGULAR RHYTHM, +S1, +S2 - GI/Abdominal Exam GI & Abdominal Exam: Distended, Soft - Rectal Exam Rectal Exam: Deferred - Exam Exam: NORMAL INSPECTION - Extremities Exam Extremities Exam: Pedal Edema, Tenderness. absent: Calf Tenderness - Back Exam Back Exam: absent: CVA tenderness (L), CVA tenderness (R) - Neurological Exam Neurological Exam: Alert, Awake, Oriented x3 - Psychiatric Exam Psychiatric exam: Normal Mood - Skin Skin Exam: Dry, Intact Assessment and Plan (1) Cellulitis Status: Acute (2) Immunocompromised state Status: Acute (3) Pneumonia Status: Acute (4) [place] cell carcinoma Status: Chronic (5) Metastatic carcinoma Status: Chronic (6) Cellulitis, leg Status: Acute (7) HTN (hypertension) Status: Chronic - Assessment and Plan (Free Text) Assessment: needs left knee drainage consider bone scan/ imaging right foot to r/o OM cont iv antibiotics for min 21 days ( empiric)
[2017-01-28] MEDS: Benzocaine/Menthol (Cepacol) Lozenge PO PRN (17:20)
[2017-01-28] MEDS: Nasal Spray(Ocean spray) NAS PRN (22:24)
[2017-01-29] MEDS: Piperacillin/Tazobact 3.375 GM in Sodium Chloride 0.9% 100 ML IVPB SCH ×4 (04:25→23:02)
[2017-01-29 06:16] LABS: HEMATOCRIT 29.3 % (35.0-51.0); MEAN CELL VOLUME 76.5 fl (80.0-94.0); MEAN CORPUSCULAR HEMOGLOBIN 24.9 pg (27.0-31.0); MEAN CORPUSCULAR HGB CONC 32.6 g/dL (33.0-37.0); RED CELL DISTRIBUTION WIDTH 18.1 % (11.5-14.5)
[2017-01-29 06:29] LABS: BLOOD UREA NITROGEN 11 mg/dl (9-20); CALCIUM 8.8 mg/dL (8.4-10.2); CARBON DIOXIDE 27 mmol/L (22-30); CHLORIDE 102 mmol/L (98-107); GFR AFRICAN-AMERICAN > 60; GLUCOSE,RANDOM 93 mg/dL (75-110); POTASSIUM 2.9 MMOL/L (3.6-5.0); SODIUM 137 mmol/l (132-148)
[2017-01-29 06:32] LABS: PARTIAL THROMBOPLASTIN TIME 30.8 Seconds (25.6-37.1)
[2017-01-29] MEDS ORDERED: methylPREDNISolone Depo 80 mg/ml Inj ONE (07:11)
[2017-01-29] MEDS ORDERED: Bupivacaine 0.5% Inj(30mL) ONE (07:11)
--- NOTE | 2017-01-29 07:29 | CP.PCM.PN ---
Subjective - Date & Time of Evaluation Date of Evaluation: 01/28/17 Time of Evaluation: 09:00 - Subjective Subjective: Seen on rounds with Oncology. Pt is seated on EOB, mood appears good. No complaints of cough or SOB. No chest pain. Vital signs have been stable. Repeat CT chest was reviewed. On exam the breath sounds are absent in the LLL area. No wheezes or bronchial breath sounds. Rare dry rales. Few rhonchi noted in dependant lung kaye. I feel radiographic findings in chest represent advancement of his metastatic lung disease. Continue with present medical regimen. Objective - Vital Signs/Intake and Output Vital Signs (last 24 hours): Temp Pulse Resp BP Pulse Ox 97.3 F L 73 18 136/72 95 01/29/17 05:53 01/29/17 05:53 01/29/17 05:53 01/29/17 05:53 01/29/17 05:53 Intake and Output: 01/28/17 01/29/17 23:59 11:59 Intake Total 590 Balance 590 - Medications Medications: Current Medications Acetaminophen (Tylenol 325mg Tab) 650 mg PO Q6 PRN PRN Reason: Fever >100.4 F Al Hydrox/Mg Hydrox/Simethicone (Maalox Plus 30 Ml) 30 ml PO Q6 PRN PRN Reason: Indigestion / Heartburn Last Admin: 01/26/17 15:58 Dose: 30 ml Bacitracin (Bacitracin Oint) 1 applic TOP DAILY [facility] Last Admin: 01/28/17 08:44 Dose: 1 applic Benzocaine/Menthol (Cepacol Sore Throat) 1 lul PO Q3 PRN PRN Reason: Sore Throat Last Admin: 01/28/17 17:20 Dose: 1 lul Docusate Sodium (Colace) 100 mg PO BID [facility] Last Admin: 01/28/17 17:20 Dose: 100 mg Hydrochlorothiazide (Hydrodiuril) 25 mg PO DAILY [facility] Last Admin: 01/26/17 09:21 Dose: Not Given Vancomycin HCl 1 gm/ Sodium (Chloride) 250 mls @ 250 mls/hr IVPB Q12H [facility] PRN Reason: Protocol Last Admin: 01/28/17 22:20 Dose: 250 mls/hr Piperacillin Sod/Tazobactam (Sod 3.375 gm/ Sodium Chloride) 100 mls @ 100 mls/ hr IVPB Q6 [facility] PRN Reason: Protocol Last Admin: 01/29/17 04:25 Dose: 100 mls/hr Fluconazole (Diflucan Iv 200 Mg/100 Ml Ns) 100 mls @ 100 mls/hr IVPB DAILY [facility] Stop: 01/30/17 21:00 Last Admin: 01/28/17 10:58 Dose: 100 mls/hr Potassium Chloride (Potassium Chloride 10 Meq/100 Ml) 100 mls @ 50 mls/hr IVPB ONCE ONE Stop: 01/29/17 09:14 Metoprolol Tartrate (Lopressor) 25 mg PO Q12 [facility] Last Admin: 01/28/17 22:20 Dose: 25 mg Morphine Sulfate (Morphine) 1 mg IVP Q4 PRN PRN Reason: Pain, moderate (4-7) Morphine Sulfate (Morphine) 2 mg IVP Q4 PRN PRN Reason: Pain, severe (8-10) Last Admin: 01/24/17 13:17 Dose: 2 mg Ondansetron HCl (Zofran Inj) 4 mg IVP Q6 PRN PRN Reason: Nausea/Vomiting Pantoprazole Sodium (Protonix Ec Tab) 40 mg PO DAILY [facility] Last Admin: 01/28/17 08:45 Dose: 40 mg Sodium Chloride ([place] Nasal [place]) 1 sprays [place] Q4 PRN PRN Reason: Nasal congestion Last Admin: 01/28/17 22:24 Dose: 1 spr Zolpidem Tartrate (Ambien) 5 mg PO HS PRN PRN Reason: Insomnia Last Admin: 01/28/17 22:19 Dose: 5 mg - Labs Labs: 01/29/17 05:35 01/29/17 05:35 PT 14.2 Seconds (9.8-13.1) H 01/29/17 05:35 INR 1.3 (0.9-1.2) H 01/29/17 05:35 APTT 30.8 Seconds (25.6-37.1) 01/29/17 05:35 Assessment and Plan (1) Pneumonia Status: Acute (2) Metastatic carcinoma Status: Chronic (3) [place] cell carcinoma Status: Chronic
[2017-01-29] MEDS ORDERED: Etomidate 20 mg/10ml Inj IV ONE (07:38)
[2017-01-29] MEDS ORDERED: Succinylcholine 200 mg/10 ml Inj IV ONE ×2 (07:40→12:44)
[2017-01-29] MEDS ORDERED: Lidocaine 1% Inj (20ml) ONE (07:49)
[2017-01-29] MEDS ORDERED: Potassium Chloride 20 mEq/15 ml LIQ UD PO ONE (08:03)
--- NOTE | 2017-01-29 08:05 | CP.PCM.PN ---
Subjective - Date & Time of Evaluation Date of Evaluation: 01/29/17 Time of Evaluation: 09:30 - Subjective Subjective: Patient seen and examined bedside, feeling better. Hemodynamically stable, afebrile For OR today for left knee I&D no acute issues overnight k 2.9 this Am , being replaced Objective - Vital Signs/Intake and Output Vital Signs (last 24 hours): Temp Pulse Resp BP Pulse Ox 97.3 F L 73 18 136/72 95 01/29/17 05:53 01/29/17 05:53 01/29/17 05:53 01/29/17 05:53 01/29/17 05:53 Intake and Output: 01/29/17 01/29/17 06:59 18:59 Intake Total 590 Balance 590 - Medications Medications: Current Medications Acetaminophen (Tylenol 325mg Tab) 650 mg PO Q6 PRN PRN Reason: Fever >100.4 F Al Hydrox/Mg Hydrox/Simethicone (Maalox Plus 30 Ml) 30 ml PO Q6 PRN PRN Reason: Indigestion / Heartburn Last Admin: 01/26/17 15:58 Dose: 30 ml Bacitracin (Bacitracin Oint) 1 applic TOP DAILY [facility] Last Admin: 01/28/17 08:44 Dose: 1 applic Benzocaine/Menthol (Cepacol Sore Throat) 1 lul PO Q3 PRN PRN Reason: Sore Throat Last Admin: 01/28/17 17:20 Dose: 1 lul Docusate Sodium (Colace) 100 mg PO BID [facility] Last Admin: 01/28/17 17:20 Dose: 100 mg Hydrochlorothiazide (Hydrodiuril) 25 mg PO DAILY [facility] Last Admin: 01/26/17 09:21 Dose: Not Given Vancomycin HCl 1 gm/ Sodium (Chloride) 250 mls @ 250 mls/hr IVPB Q12H [facility] PRN Reason: Protocol Last Admin: 01/28/17 22:20 Dose: 250 mls/hr Piperacillin Sod/Tazobactam (Sod 3.375 gm/ Sodium Chloride) 100 mls @ 100 mls/ hr IVPB Q6 [facility] PRN Reason: Protocol Last Admin: 01/29/17 04:25 Dose: 100 mls/hr Fluconazole (Diflucan Iv 200 Mg/100 Ml Ns) 100 mls @ 100 mls/hr IVPB DAILY [facility] Stop: 01/30/17 21:00 Last Admin: 01/28/17 10:58 Dose: 100 mls/hr Potassium Chloride (Potassium Chloride 10 Meq/100 Ml) 100 mls @ 50 mls/hr IVPB ONCE ONE Stop: 01/29/17 09:14 Potassium Chloride (Potassium Cl 10meq/50ml Sterile Water) 50 mls @ 50 mls/hr IVPB Q1 [facility] Stop: 01/29/17 12:59 Metoprolol Tartrate (Lopressor) 25 mg PO Q12 [facility] Last Admin: 01/28/17 22:20 Dose: 25 mg Morphine Sulfate (Morphine) 1 mg IVP Q4 PRN PRN Reason: Pain, moderate (4-7) Morphine Sulfate (Morphine) 2 mg IVP Q4 PRN PRN Reason: Pain, severe (8-10) Last Admin: 01/24/17 13:17 Dose: 2 mg Ondansetron HCl (Zofran Inj) 4 mg IVP Q6 PRN PRN Reason: Nausea/Vomiting Pantoprazole Sodium (Protonix Ec Tab) 40 mg PO DAILY [facility] Last Admin: 01/28/17 08:45 Dose: 40 mg Potassium Chloride (Potassium Chloride Oral Soln) 40 meq PO ONCE ONE Stop: 01/29/17 08:04 Sodium Chloride ([place] Nasal [place]) 1 sprays [place] Q4 PRN PRN Reason: Nasal congestion Last Admin: 01/28/17 22:24 Dose: 1 spr Zolpidem Tartrate (Ambien) 5 mg PO HS PRN PRN Reason: Insomnia Last Admin: 01/28/17 22:19 Dose: 5 mg - Labs Labs: 01/29/17 05:35 01/29/17 05:35 PT 14.2 Seconds (9.8-13.1) H 01/29/17 05:35 INR 1.3 (0.9-1.2) H 01/29/17 05:35 APTT 30.8 Seconds (25.6-37.1) 01/29/17 05:35 - Constitutional Appears: Non-toxic, No Acute Distress - Head Exam Head Exam: ATRAUMATIC, NORMAL INSPECTION, NORMOCEPHALIC - Eye Exam Eye Exam: EOMI, Normal appearance, PERRL Pupil Exam: NORMAL ACCOMODATION - ENT Exam ENT Exam: Mucous Membranes Moist, Normal Exam - Neck Exam Neck Exam: Full ROM, Normal Inspection - Respiratory Exam Respiratory Exam: Clear to Ausculation Bilateral, NORMAL BREATHING PATTERN. absent: Rales, Wheezes, Respiratory Distress - Cardiovascular Exam Cardiovascular Exam: REGULAR RHYTHM, RRR, +S1, +S2. absent: JVD - GI/Abdominal Exam GI & Abdominal Exam: Soft, Normal Bowel Sounds. absent: Distended, Guarding, Tenderness, Rebound - Rectal Exam Rectal Exam: Deferred - Extremities Exam Extremities Exam: Normal Inspection Additional comments: left knee effusion right foot 2nd digit with ulcer with dressing right index finger small area of discoloration ,tender - Back Exam Back Exam: NORMAL INSPECTION - Neurological Exam Neurological Exam: Alert, Awake, CN II-XII Intact, Oriented x3 - Psychiatric Exam Psychiatric exam: Normal Affect, Normal Mood - Skin Skin Exam: Dry, Normal Color, Warm Assessment and Plan - Assessment and Plan (Free Text) Assessment: 76 y/o gent with hx of HTN, [place] Cancer , 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 Noted to be febrile, neutropenic on admission, started on IV antibiotics and given Neupogen. Also developed A fib with RVR w/c resolved with a dose of IV cardizem. CT of chest :Extensive pleural-based soft tissue throughout much of the left prudencio thorax and in the right apex, suspicious for neoplastic disease. Probable central necrosis within areas of the pleural-based soft tissue in the lower left prudencio thorax. Multiple pulmonary nodules. No significant lymphadenopathy. No acute infiltrate. 1. Question of Pneumonia CT of chest : no acute infiltrate however noted multiple pulm nodules and pleural based soft tissue mass empirically on IV Zosyn and Vanco Blood c/s: negative so far , Sputum c/s pending Pulm consulted- Dr Rodriguez is following pt Mycoplasma ag IG + however , IgM pending Strep ag negative 2. Episode of atrial fibrillation with rvr resolved with IV Cardizem now SR Cardio consulted 3. 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 Right 1st digit pain/abscess s/p I&D Wound c/s ID consulted pt on IV Zosyn and Vanco 5. Left knee effusion Ortho consult : Dr Del Angel Had I&D today Pt medically optimized for the procedure Cardio consulted, ECHO : normal LV function, low cardiac risk NPO from [place] 6.Hypertension, chronic cont Metoprolol 7. Right foot 2nd digit ulcer was able to express out some purulent discharge Podiatry consulted Pt is on IV abx Wound c/s Morganella Kvngi and staph 8. Hypokalemia K 2.9 replaced with KCl runs and PO 9.DVT proph hold anticoag as pt for surgery in am
[2017-01-29] MEDS: Potassium CL 10mEq/100ml 100 ML IVPB ONE ×2 (08:57→09:12)
[2017-01-29] MEDS: Pantoprazole 40 mg EC Tab PO SCH (08:58)
[2017-01-29] MEDS: Fluconazole IV 200mg/100 ml NS 100 ML IVPB SCH (09:07)
[2017-01-29] MEDS: Potassium CL 10 MEQ/50 ML 50 ML IVPB SCH ×4 (09:11→12:04)
[2017-01-29] MEDS: Bacitracin OINT 15GM TOP SCH (09:13)
--- NOTE | 2017-01-29 09:53 | CP.PCM.PN ---
Subjective - Date & Time of Evaluation Date of Evaluation: 01/29/17 Time of Evaluation: 09:48 - Subjective Subjective: Pt is afebrile, The c/s from the foot wound showed gram negative bacteria and G +ve cocci. He is on antibiotics who feels these should be given for 21 days, Will check with him if chemotherapy ,which is due next week , can be given with the antibiotics,. Pt is to have the knee aspirated today Objective - Vital Signs/Intake and Output Vital Signs (last 24 hours): Temp Pulse Resp BP Pulse Ox 98.3 F 77 18 150/66 95 01/29/17 08:00 01/29/17 09:26 01/29/17 08:00 01/29/17 09:26 01/29/17 08:00 Intake and Output: 01/29/17 01/29/17 06:59 18:59 Intake Total 590 Balance 590 - Medications Medications: Current Medications Acetaminophen (Tylenol 325mg Tab) 650 mg PO Q6 PRN PRN Reason: Fever >100.4 F Al Hydrox/Mg Hydrox/Simethicone (Maalox Plus 30 Ml) 30 ml PO Q6 PRN PRN Reason: Indigestion / Heartburn Last Admin: 01/26/17 15:58 Dose: 30 ml Bacitracin (Bacitracin Oint) 1 applic TOP DAILY [facility] Last Admin: 01/29/17 09:13 Dose: 1 applic Benzocaine/Menthol (Cepacol Sore Throat) 1 lul PO Q3 PRN PRN Reason: Sore Throat Last Admin: 01/28/17 17:20 Dose: 1 lul Docusate Sodium (Colace) 100 mg PO BID [facility] Last Admin: 01/29/17 09:13 Dose: Not Given Hydrochlorothiazide (Hydrodiuril) 25 mg PO DAILY [facility] Last Admin: 01/26/17 09:21 Dose: Not Given Vancomycin HCl 1 gm/ Sodium (Chloride) 250 mls @ 250 mls/hr IVPB Q12H [facility] PRN Reason: Protocol Last Admin: 01/29/17 09:07 Dose: 250 mls/hr Piperacillin Sod/Tazobactam (Sod 3.375 gm/ Sodium Chloride) 100 mls @ 100 mls/ hr IVPB Q6 [facility] PRN Reason: Protocol Last Admin: 01/29/17 09:27 Dose: 100 mls/hr Fluconazole (Diflucan Iv 200 Mg/100 Ml Ns) 100 mls @ 100 mls/hr IVPB DAILY [facility] Stop: 01/30/17 21:00 Last Admin: 01/29/17 09:07 Dose: 100 mls/hr Potassium Chloride (Potassium Cl 10meq/50ml Sterile Water) 50 mls @ 50 mls/hr IVPB Q1 [facility] Stop: 01/29/17 12:59 Last Admin: 01/29/17 09:11 Dose: 50 mls/hr Metoprolol Tartrate (Lopressor) 25 mg PO Q12 [facility] Last Admin: 01/29/17 09:26 Dose: 25 mg Morphine Sulfate (Morphine) 1 mg IVP Q4 PRN PRN Reason: Pain, moderate (4-7) Ondansetron HCl (Zofran Inj) 4 mg IVP Q6 PRN PRN Reason: Nausea/Vomiting Pantoprazole Sodium (Protonix Ec Tab) 40 mg PO DAILY [facility] Last Admin: 01/29/17 08:58 Dose: Not Given Sodium Chloride ([place] Nasal [place]) 1 sprays [place] Q4 PRN PRN Reason: Nasal congestion Last Admin: 01/28/17 22:24 Dose: 1 spr Zolpidem Tartrate (Ambien) 5 mg PO HS PRN PRN Reason: Insomnia Last Admin: 01/28/17 22:19 Dose: 5 mg - Labs Labs: 01/29/17 05:35 01/29/17 05:35 PT 14.2 Seconds (9.8-13.1) H 01/29/17 05:35 INR 1.3 (0.9-1.2) H 01/29/17 05:35 APTT 30.8 Seconds (25.6-37.1) 01/29/17 05:35
--- NOTE | 2017-01-29 10:16 | CP.PCM.PN ---
Subjective - Date & Time of Evaluation Date of Evaluation: 01/29/17 Time of Evaluation: 10:15 - Subjective Subjective: The case was discussed with oncology this morning on rounds. The patient has gram-negative rods and gram-positive cocci currently growing from a wound on his foot. The specimen from his index finger of the right hand cannot be found at the present time and the laboratory is checking to see if it is still available for processing. He is to have aspiration of the left knee done by orthopedics later today. Objective - Vital Signs/Intake and Output Vital Signs (last 24 hours): Temp Pulse Resp BP Pulse Ox 98.3 F 77 18 150/66 95 01/29/17 08:00 01/29/17 09:26 01/29/17 08:00 01/29/17 09:26 01/29/17 08:00 Intake and Output: 01/28/17 01/29/17 23:59 11:59 Intake Total 590 Balance 590 - Medications Medications: Current Medications Acetaminophen (Tylenol 325mg Tab) 650 mg PO Q6 PRN PRN Reason: Fever >100.4 F Al Hydrox/Mg Hydrox/Simethicone (Maalox Plus 30 Ml) 30 ml PO Q6 PRN PRN Reason: Indigestion / Heartburn Last Admin: 01/26/17 15:58 Dose: 30 ml Bacitracin (Bacitracin Oint) 1 applic TOP DAILY [facility] Last Admin: 01/29/17 09:13 Dose: 1 applic Benzocaine/Menthol (Cepacol Sore Throat) 1 lul PO Q3 PRN PRN Reason: Sore Throat Last Admin: 01/28/17 17:20 Dose: 1 lul Docusate Sodium (Colace) 100 mg PO BID [facility] Last Admin: 01/29/17 09:13 Dose: Not Given Hydrochlorothiazide (Hydrodiuril) 25 mg PO DAILY [facility] Last Admin: 01/26/17 09:21 Dose: Not Given Vancomycin HCl 1 gm/ Sodium (Chloride) 250 mls @ 250 mls/hr IVPB Q12H [facility] PRN Reason: Protocol Last Admin: 01/29/17 09:07 Dose: 250 mls/hr Piperacillin Sod/Tazobactam (Sod 3.375 gm/ Sodium Chloride) 100 mls @ 100 mls/ hr IVPB Q6 [facility] PRN Reason: Protocol Last Admin: 01/29/17 09:27 Dose: 100 mls/hr Fluconazole (Diflucan Iv 200 Mg/100 Ml Ns) 100 mls @ 100 mls/hr IVPB DAILY [facility] Stop: 01/30/17 21:00 Last Admin: 01/29/17 09:07 Dose: 100 mls/hr Potassium Chloride (Potassium Cl 10meq/50ml Sterile [place]) 50 mls @ 50 mls/hr IVPB Q1 [facility] Stop: 01/29/17 12:59 Last Admin: 01/29/17 10:00 Dose: 50 mls/hr Metoprolol Tartrate (Lopressor) 25 mg PO Q12 [facility] Last Admin: 01/29/17 09:26 Dose: 25 mg Morphine Sulfate (Morphine) 1 mg IVP Q4 PRN PRN Reason: Pain, moderate (4-7) Last Admin: 01/29/17 10:03 Dose: 1 mg Ondansetron HCl (Zofran Inj) 4 mg IVP Q6 PRN PRN Reason: Nausea/Vomiting Pantoprazole Sodium (Protonix Ec Tab) 40 mg PO DAILY [facility] Last Admin: 01/29/17 08:58 Dose: Not Given Sodium Chloride ([place] Nasal [place]) 1 sprays [place] Q4 PRN PRN Reason: Nasal congestion Last Admin: 01/28/17 22:24 Dose: 1 spr Zolpidem Tartrate (Ambien) 5 mg PO HS PRN PRN Reason: Insomnia Last Admin: 01/28/17 22:19 Dose: 5 mg - Labs Labs: 01/29/17 05:35 01/29/17 05:35 PT 14.2 Seconds (9.8-13.1) H 01/29/17 05:35 INR 1.3 (0.9-1.2) H 01/29/17 05:35 APTT 30.8 Seconds (25.6-37.1) 01/29/17 05:35 Assessment and Plan (1) Pneumonia Status: Acute (2) Metastatic carcinoma Status: Chronic (3) [place] cell carcinoma Status: Chronic
--- NOTE | 2017-01-29 10:26 | CP.PCM.PN ---
Subjective - Date & Time of Evaluation Date of Evaluation: 01/29/17 Time of Evaluation: 08:00 - Subjective Subjective: Podiatry Progress Note - Dr. Treadwell 76 year old male patient PMHx Roberts cell carcinoma with lung metastasis, left knee effusion seen at bedside in telemetry for right 2nd digit wound. Patient seen resting in bed comfortably at time of visit. Patient denies any acute overnight events. Patient denies any pain to his right 2nd toe. Patient states he was supposed to go to the OR for left knee surgery but was cancelled because he had low potassium. Patient denies N/V/F/D/C/SOB/calf pain. Offers no other pedal complaints at this time. Objective - Vital Signs/Intake and Output Vital Signs (last 24 hours): Temp Pulse Resp BP Pulse Ox 98.3 F 77 18 150/66 95 01/29/17 08:00 01/29/17 09:26 01/29/17 08:00 01/29/17 09:26 01/29/17 08:00 Intake and Output: 01/29/17 01/29/17 06:59 18:59 Intake Total 590 Balance 590 - Medications Medications: Current Medications Acetaminophen (Tylenol 325mg Tab) 650 mg PO Q6 PRN PRN Reason: Fever >100.4 F Al Hydrox/Mg Hydrox/Simethicone (Maalox Plus 30 Ml) 30 ml PO Q6 PRN PRN Reason: Indigestion / Heartburn Last Admin: 01/26/17 15:58 Dose: 30 ml Bacitracin (Bacitracin Oint) 1 applic TOP DAILY [facility] Last Admin: 01/29/17 09:13 Dose: 1 applic Benzocaine/Menthol (Cepacol Sore Throat) 1 lul PO Q3 PRN PRN Reason: Sore Throat Last Admin: 01/28/17 17:20 Dose: 1 lul Docusate Sodium (Colace) 100 mg PO BID [facility] Last Admin: 01/29/17 09:13 Dose: Not Given Hydrochlorothiazide (Hydrodiuril) 25 mg PO DAILY [facility] Last Admin: 01/26/17 09:21 Dose: Not Given Vancomycin HCl 1 gm/ Sodium (Chloride) 250 mls @ 250 mls/hr IVPB Q12H STEVEN PRN Reason: Protocol Last Admin: 01/29/17 09:07 Dose: 250 mls/hr Piperacillin Sod/Tazobactam (Sod 3.375 gm/ Sodium Chloride) 100 mls @ 100 mls/ hr IVPB Q6 STEVEN PRN Reason: Protocol Last Admin: 01/29/17 09:27 Dose: 100 mls/hr Fluconazole (Diflucan Iv 200 Mg/100 Ml Ns) 100 mls @ 100 mls/hr IVPB DAILY [facility] Stop: 01/30/17 21:00 Last Admin: 01/29/17 09:07 Dose: 100 mls/hr Potassium Chloride (Potassium Cl 10meq/50ml Sterile Water) 50 mls @ 50 mls/hr IVPB Q1 [facility] Stop: 01/29/17 12:59 Last Admin: 01/29/17 10:00 Dose: 50 mls/hr Metoprolol Tartrate (Lopressor) 25 mg PO Q12 [facility] Last Admin: 01/29/17 09:26 Dose: 25 mg Morphine Sulfate (Morphine) 1 mg IVP Q4 PRN PRN Reason: Pain, moderate (4-7) Last Admin: 01/29/17 10:03 Dose: 1 mg Ondansetron HCl (Zofran Inj) 4 mg IVP Q6 PRN PRN Reason: Nausea/Vomiting Pantoprazole Sodium (Protonix Ec Tab) 40 mg PO DAILY [facility] Last Admin: 01/29/17 08:58 Dose: Not Given Sodium Chloride ([place] Nasal [place]) 1 sprays [place] Q4 PRN PRN Reason: Nasal congestion Last Admin: 01/28/17 22:24 Dose: 1 spr Zolpidem Tartrate (Ambien) 5 mg PO HS PRN PRN Reason: Insomnia Last Admin: 01/28/17 22:19 Dose: 5 mg - Labs Labs: 01/29/17 05:35 01/29/17 05:35 PT 14.2 Seconds (9.8-13.1) H 01/29/17 05:35 INR 1.3 (0.9-1.2) H 01/29/17 05:35 APTT 30.8 Seconds (25.6-37.1) 01/29/17 05:35 - Constitutional Appears: Well, Non-toxic, No Acute Distress - Extremities Exam Additional comments: RLE focused physical exam: Vasc: DP and PT pulses palpable 2/4. CFT <3 seconds to all digits. Temperature gradient warm to warm. No edema noted. No increase in warmth right 2nd digit Neuro: Gross sensation slightly diminished. Derm: Ulceration measuring approximately 0.3 x 0.3 x 0.3 cm noted to plantar aspect of 2nd digit distal tuft - ulcer is noted to have a 100% granular base and hyperkeratotic rim. No purulence or drainage noted. No malodor, no fluctuance, no probe to bone noted. Ortho: No tenderness to palpation right 2nd digit. 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 Treadwell Vitals and labs reviewed = afebrile, leukocytosis 19.0 Hyperkeratotic tissue to right 2nd distal tuft excisionally debrided down to healthy skin - Ulcer remains the same area at 0.3 x 0.3 x 0.3 cm - Debrided using a #15 blade without incident Bacitracin applied to ulceration and right 2nd digit dressed with DSD Continue with local wound care Right foot wound culture final report - morg morganii ss morganii, staphylococcus aureus Continue abx per ID = Zosyn, Vancomycin Podiatry will continue to follow patient while in house
[2017-01-29] MEDS ORDERED: Lactated Ringer's 1,000 ML IV ONE (12:40)
[2017-01-29] MEDS ORDERED: Propofol 10 mg/ml Inj (20 ML) ONE (12:42)
[2017-01-29] MEDS ORDERED: Midazolam 2 MG/2 ML VIAL ONE (12:43)
[2017-01-29] MEDS ORDERED: Lidocaine 2% MPF (5 ml) Inj ONE (12:45)
[2017-01-29] MEDS ORDERED: Rocuronium 10 mg/ml (5 ml) ONE (12:55)
[2017-01-29] MEDS ORDERED: ePHEDrine 50 mg/ml Inj ONE (13:13)
[2017-01-29] MEDS ORDERED: Lidocaine 1% Inj (20ml) IJ ONE ×2 (13:27→13:30)
[2017-01-29 13:46] LABS: FLUID TYPE SYNOVIAL FLUID
[2017-01-29] MEDS ORDERED: Neostigmine Methylsulfate 2 MG/2 ML ML IV ONE (13:55)
[2017-01-29] MEDS ORDERED: Neostigmine Methylsulfate 3mg/3ml Syringe IV ONE (13:55)
[2017-01-29 14:08] LABS: FLUID TYPE SYNOVIAL FLUID
[2017-01-29] MEDS ORDERED: Sodium Chloride 0.9% 1,000 ML IV ONE (14:10)
[2017-01-29] MEDS ORDERED: HYDROmorphone 0.5 mg/0.5 ml ISec IVP PRN (14:46)
[2017-01-29] MEDS: Benzocaine/Menthol (Cepacol) Lozenge PO PRN (15:28)
[2017-01-29 15:41] LABS: SYNOVIAL FLUID TOTAL COUNT 100 (0-0)
[2017-01-29 15:45] LABS: SYNOVIAL FLUID TOTAL COUNT 100 (0-0)
[2017-01-30 05:27] LABS: HEMATOCRIT 26.2 % (35.0-51.0); MEAN CELL VOLUME 76.8 fl (80.0-94.0); MEAN CORPUSCULAR HEMOGLOBIN 24.6 pg (27.0-31.0); RED CELL DISTRIBUTION WIDTH 18.4 % (11.5-14.5); WHITE BLOOD COUNT 17.1 K/uL (4.8-10.8)
--- NOTE | 2017-01-30 05:29 | CP.PCM.PN ---
Subjective - Date & Time of Evaluation Date of Evaluation: 01/30/17 Time of Evaluation: 05:27 - Subjective Subjective: Podiatry Progress Note - Dr. Treadwell 76 year old male patient PMHx [place] cell carcinoma with lung metastasis, left knee effusion POD#1 s/p L knee I&D,seen at bedside in telemetry for right 2nd digit wound. Patient seen sleeping comfortably at time of visit. Patient denies any acute overnight events. Patient denies any pain to his right 2nd toe. Patient states that he went to the OR yesterday to clean out his left knee. Patient denies N/V/F/D/C/SOB/calf pain. Offers no other pedal complaints at this time. Objective - Vital Signs/Intake and Output Vital Signs (last 24 hours): Temp Pulse Resp BP Pulse Ox 99 F 76 19 121/60 98 01/30/17 05:02 01/30/17 05:02 01/30/17 05:02 01/30/17 05:02 01/30/17 05:02 Intake and Output: 01/29/17 01/30/17 18:59 06:59 Intake Total 250 760 Output Total 450 Balance 250 310 - Medications Medications: Current Medications Acetaminophen (Tylenol 325mg Tab) 650 mg PO Q6 PRN PRN Reason: Fever >100.4 F Al Hydrox/Mg Hydrox/Simethicone (Maalox Plus 30 Ml) 30 ml PO Q6 PRN PRN Reason: Indigestion / Heartburn Last Admin: 01/26/17 15:58 Dose: 30 ml Bacitracin (Bacitracin Oint) 1 applic TOP DAILY [facility] Last Admin: 01/29/17 09:13 Dose: 1 applic Benzocaine/Menthol (Cepacol Sore Throat) 1 lul PO Q3 PRN PRN Reason: Sore Throat Last Admin: 01/29/17 15:28 Dose: 1 lul Docusate Sodium (Colace) 100 mg PO BID [facility] Last Admin: 01/29/17 17:25 Dose: 100 mg Hydrochlorothiazide (Hydrodiuril) 25 mg PO DAILY [facility] Last Admin: 01/26/17 09:21 Dose: Not Given Hydromorphone HCl (Dilaudid) 0.5 mg IVP Q15M PRN PRN Reason: Pain, moderate (4-7) Stop: 01/30/17 14:47 Vancomycin HCl 1 gm/ Sodium (Chloride) 250 mls @ 250 mls/hr IVPB Q12H STEVEN PRN Reason: Protocol Last Admin: 01/29/17 20:51 Dose: 250 mls/hr Fluconazole (Diflucan Iv 200 Mg/100 Ml Ns) 100 mls @ 100 mls/hr IVPB DAILY [facility] Stop: 01/30/17 21:00 Last Admin: 01/29/17 09:07 Dose: 100 mls/hr Metoprolol Tartrate (Lopressor) 25 mg PO Q12 [facility] Last Admin: 01/29/17 20:53 Dose: 25 mg Morphine Sulfate (Morphine) 1 mg IVP Q4 PRN PRN Reason: Pain, moderate (4-7) Last Admin: 01/29/17 21:00 Dose: 1 mg Ondansetron HCl (Zofran Inj) 4 mg IVP Q6 PRN PRN Reason: Nausea/Vomiting Pantoprazole Sodium (Protonix Ec Tab) 40 mg PO DAILY [facility] Last Admin: 01/29/17 08:58 Dose: Not Given Sodium Chloride ([place] Nasal [place]) 1 sprays [place] Q4 PRN PRN Reason: Nasal congestion Last Admin: 01/28/17 22:24 Dose: 1 spr Zolpidem Tartrate (Ambien) 5 mg PO HS PRN PRN Reason: Insomnia Last Admin: 01/30/17 01:25 Dose: 5 mg - Labs Labs: 01/29/17 05:35 01/29/17 05:35 PT 14.2 Seconds (9.8-13.1) H 01/29/17 05:35 INR 1.3 (0.9-1.2) H 01/29/17 05:35 APTT 30.8 Seconds (25.6-37.1) 01/29/17 05:35 - Constitutional Appears: Well, Non-toxic, No Acute Distress - Extremities Exam Additional comments: RLE focused physical exam: Vasc: DP and PT pulses palpable 2/4. CFT <3 seconds to all digits. Temperature gradient warm to warm. No edema noted. No increase in warmth right 2nd digit Neuro: Gross sensation slightly diminished. Derm: Ulceration measuring approximately 0.3 x 0.3 x 0.3 cm noted to plantar aspect of 2nd digit distal tuft - ulcer is noted to have a 100% granular base and hyperkeratotic rim. No purulence or drainage noted. No malodor, no fluctuance, no probe to bone noted. Ortho: No tenderness to palpation right 2nd digit. 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 Treadwell Vitals and labs reviewed = afebrile, WBC decreasing 17.1 Bacitracin applied to ulceration and right 2nd digit dressed with DSD Continue with local wound care Right foot wound culture final report - morg morganii ss morganii, staphylococcus aureus Continue abx per ID = Zosyn, Vancomycin Podiatry will continue to follow patient while in house
[2017-01-30 05:39] LABS: BLOOD UREA NITROGEN 12 mg/dl (9-20); CALCIUM 8.4 mg/dL (8.4-10.2); CARBON DIOXIDE 27 mmol/L (22-30); CHLORIDE 103 mmol/L (98-107); GFR AFRICAN-AMERICAN > 60; GLUCOSE,RANDOM 94 mg/dL (75-110); POTASSIUM 3.3 MMOL/L (3.6-5.0); SODIUM 135 mmol/l (132-148)
[2017-01-30] MEDS ORDERED: Potassium Chloride 20 mEq/15 ml LIQ UD PO ONE (07:31)
--- NOTE | 2017-01-30 07:47 | PCM.SURG1 ---
Surgeon's Initial Post Op Note - Surgeon's Notes Surgeon: Bean Spiral Winder: Janice LEON Type of Anesthesia: General Endo Anesthesia Administered By: DR Farooq Pre-Operative Diagnosis: R/o septic TKR. L knee effusion Operative Findings: L knee effusion. R/O sepsis L knee Post-Operative Diagnosis: as above Operation Performed: surigcal arthroscopy L knee. possible partial synovectomy Specimen/Specimens Removed: synovium Estimated Blood Loss: EBL {In ML}: 5 Blood Products Given: N/A Drains Used: No Drains Post-Op Condition: Good Date of Surgery/Procedure: 01/29/17 Time of Surgery/Procedure: 12:58 (time in katharine m/anesthesia induction time 12:20)
[2017-01-30 08:05] VITALS: RESP 18
[2017-01-30] MEDS: Fluconazole IV 200mg/100 ml NS 100 ML IVPB SCH (08:45)
[2017-01-30] MEDS: Pantoprazole 40 mg EC Tab PO SCH (08:46)
[2017-01-30] MEDS: Bacitracin OINT 15GM TOP SCH (08:54)
--- NOTE | 2017-01-30 09:57 | CP.PCM.PN ---
Subjective - Date & Time of Evaluation Date of Evaluation: 01/30/17 Time of Evaluation: 09:53 - Subjective Subjective: Pt claims he feels good. He has aspiration of the left knee joint fluid. and a small piece of the synovium and sent for c/s. Still pending. He is on abtibiotics which according to the id specialist should be continued for a total of 21 dWill continue to watch the CBC. He will resume the chemotherapy when ok with ID.ays,. Objective - Vital Signs/Intake and Output Vital Signs (last 24 hours): Temp Pulse Resp BP Pulse Ox 98.6 F 70 18 134/71 95 01/30/17 08:05 01/30/17 08:43 01/30/17 08:05 01/30/17 08:43 01/30/17 08:05 Intake and Output: 01/30/17 01/30/17 06:59 18:59 Intake Total 760 Output Total 450 Balance 310 - Medications Medications: Current Medications Acetaminophen (Tylenol 325mg Tab) 650 mg PO Q6 PRN PRN Reason: Fever >100.4 F Al Hydrox/Mg Hydrox/Simethicone (Maalox Plus 30 Ml) 30 ml PO Q6 PRN PRN Reason: Indigestion / Heartburn Last Admin: 01/26/17 15:58 Dose: 30 ml Bacitracin (Bacitracin Oint) 1 applic TOP DAILY [facility] Last Admin: 01/30/17 08:54 Dose: 1 applic Benzocaine/Menthol (Cepacol Sore Throat) 1 lul PO Q3 PRN PRN Reason: Sore Throat Last Admin: 01/29/17 15:28 Dose: 1 lul Docusate Sodium (Colace) 100 mg PO BID [facility] Last Admin: 01/30/17 08:44 Dose: 100 mg Hydrochlorothiazide (Hydrodiuril) 25 mg PO DAILY [facility] Last Admin: 01/26/17 09:21 Dose: Not Given Hydromorphone HCl (Dilaudid) 0.5 mg IVP Q15M PRN PRN Reason: Pain, moderate (4-7) Stop: 01/30/17 14:47 Vancomycin HCl 1 gm/ Sodium (Chloride) 250 mls @ 250 mls/hr IVPB Q12H STEVEN PRN Reason: Protocol Last Admin: 01/30/17 08:46 Dose: 250 mls/hr Fluconazole (Diflucan Iv 200 Mg/100 Ml Ns) 100 mls @ 100 mls/hr IVPB DAILY [facility] Stop: 01/30/17 21:00 Last Admin: 01/30/17 08:45 Dose: 100 mls/hr Metoprolol Tartrate (Lopressor) 25 mg PO Q12 [facility] Last Admin: 01/30/17 08:43 Dose: 25 mg Morphine Sulfate (Morphine) 1 mg IVP Q4 PRN PRN Reason: Pain, moderate (4-7) Last Admin: 01/30/17 06:13 Dose: 1 mg Ondansetron HCl (Zofran Inj) 4 mg IVP Q6 PRN PRN Reason: Nausea/Vomiting Pantoprazole Sodium (Protonix Ec Tab) 40 mg PO DAILY [facility] Last Admin: 01/30/17 08:46 Dose: 40 mg Sodium Chloride ([place] Nasal [place]) 1 sprays [place] Q4 PRN PRN Reason: Nasal congestion Last Admin: 01/28/17 22:24 Dose: 1 spr Zolpidem Tartrate (Ambien) 5 mg PO HS PRN PRN Reason: Insomnia Last Admin: 01/30/17 01:25 Dose: 5 mg - Labs Labs: 01/30/17 04:55 01/30/17 04:55 PT 14.2 Seconds (9.8-13.1) H 01/29/17 05:35 INR 1.3 (0.9-1.2) H 01/29/17 05:35 APTT 30.8 Seconds (25.6-37.1) 01/29/17 05:35
--- NOTE | 2017-01-30 12:28 | CP.PCM.DIS ---
Provider - Provider Date of Admission: 01/24/17 11:37 Attending physician: Mitul Orta DO Primary care physician: Dr. Rodriguez Consults: ID consult Ortho consult pulmonary consult Hem/on consult Time Spent in preparation of Discharge (in minutes): 20 Hospital Course - Lab Results Lab Results: Micro Results 01/29/17 13:44 Knee Left Fungal Culture - Preliminary 01/29/17 14:07 Knee Left Fungal Culture - Preliminary 01/29/17 13:58 Knee - Left Gram Stain - Final 01/29/17 13:58 Knee - Left Gram Stain - Final 01/29/17 13:58 Knee - Left Gram Stain - Final 01/29/17 13:58 Knee - Left Gram Stain - Final 01/29/17 13:58 Knee - Left Gram Stain - Final 01/29/17 13:58 Knee - Left Gram Stain - Final 01/29/17 13:58 Knee - Left Gram Stain - Final 01/29/17 13:44 Knee - Left Gram Stain - Final 01/29/17 13:58 Knee - Left Gram Stain - Final 01/29/17 13:44 Knee - Left Gram Stain - Final 01/29/17 13:44 Knee - Left Gram Stain - Final 01/29/17 13:44 Knee - Left Gram Stain - Final 01/29/17 13:44 Knee - Left Gram Stain - Final 01/29/17 13:44 Knee - Left Gram Stain - Final 01/29/17 13:44 Knee - Left Gram Stain - Final 01/29/17 14:07 Other: Please Indicate Gram Stain - Final 01/29/17 13:44 Other: Please Indicate Gram Stain - Final 01/24/17 10:50 Blood Blood Culture - Final NO GROWTH AFTER 5 DAYS 01/24/17 10:50 Blood Gram Stain - Final TEST NOT PERFORMED 01/27/17 17:39 Foot - Right Gram Stain - Final 01/27/17 17:39 Foot - Right Wound Culture - Final Morg Morganii Ss Morganii Staphylococcus Aureus Most Recent Lab Values WBC 17.1 K/uL (4.8-10.8) H 01/30/17 04:55 RBC 3.41 Mil/uL (4.40-5.90) L 01/30/17 04:55 Hgb 8.4 g/dL (12.0-18.0) L 01/30/17 04:55 Hct 26.2 % (35.0-51.0) L 01/30/17 04:55 MCV 76.8 fl (80.0-94.0) L 01/30/17 04:55 MCH 24.6 pg (27.0-31.0) L 01/30/17 04:55 MCHC 32.0 g/dL (33.0-37.0) L 01/30/17 04:55 RDW 18.4 % (11.5-14.5) H 01/30/17 04:55 Plt Count 136 K/uL (130-400) 01/30/17 04:55 MPV 8.1 fl (7.2-11.7) 01/28/17 04:35 Neut % (Auto) 90.6 % (50.0-75.0) H 01/28/17 04:35 Lymph % (Auto) 5.7 % (20.0-40.0) L 01/28/17 04:35 [place] % (Auto) 3.5 % (0.0-10.0) 01/28/17 04:35 Eos % (Auto) 0.0 % (0.0-4.0) 01/28/17 04:35 Baso % (Auto) 0.2 % (0.0-2.0) 01/28/17 04:35 Neut # 19.0 K/uL (1.8-7.0) H 01/28/17 04:35 Lymph # 1.2 K/uL (1.0-4.3) 01/28/17 04:35 [place] # 0.7 K/uL (0.0-0.8) 01/28/17 04:35 Eos # 0.0 K/uL (0.0-0.7) 01/28/17 04:35 Baso # 0.0 K/uL (0.0-0.2) 01/28/17 04:35 Neutrophils % (Manual) 63 % (42-75) 01/28/17 04:35 Band Neutrophils % 8 % (0-2) H 01/28/17 04:35 Lymphocytes % (Manual) 9 % (20-50) L 01/28/17 04:35 Reactive Lymphs % 4 % (0-0) H 01/28/17 04:35 Monocytes % (Manual) 12 % (0-10) H 01/28/17 04:35 Eosinophils % (Manual) 1 % (0-7) 01/24/17 10:50 Metamyelocytes % 1 % (0-0) H 01/28/17 04:35 Myelocytes % 3 % (0-0) H 01/28/17 04:35 Platelet Estimate Normal (NORMAL) 01/28/17 04:35 Plt Clumps, EDTA Present 01/28/17 04:35 Giant Platelets Present 01/25/17 07:00 Hypochromasia (manual) Moderate 01/28/17 04:35 Poikilocytosis (manual Moderate 01/25/17 07:00 Anisocytosis (manual) Slight 01/28/17 04:35 Microcytosis (manual) Slight 01/28/17 04:35 Tear Drop Cells Slight 01/25/17 07:00 Ovalocytes Slight 01/28/17 04:35 Rouleaux Slight 01/24/17 10:50 PT 14.2 Seconds (9.8-13.1) H 01/29/17 05:35 INR 1.3 (0.9-1.2) H 01/29/17 05:35 APTT 30.8 Seconds (25.6-37.1) 01/29/17 05:35 D-Dimer, Quantitative 1156 ng/mlDDU (0-230) H 01/24/17 10:50 pO2 31 mm/Hg (30-55) 01/24/17 10:31 VBG pH 7.52 (7.32-7.43) H 01/24/17 10:31 VBG pCO2 33 mmHg (40-60) L 01/24/17 10:31 VBG HCO3 27.6 mmol/L 01/24/17 10:31 VBG Total CO2 27.9 mmol/L (22-28) 01/24/17 10:31 VBG O2 Sat (Calc) 74.7 % (40-65) H 01/24/17 10:31 VBG Base Excess 4.0 mmol/L (0.0-2.0) H 01/24/17 10:31 VBG Potassium 3.6 mmol/L (3.6-5.2) 01/24/17 10:31 Sodium 130.0 mmol/L (132-148) L 01/24/17 10:31 Chloride 99.0 mmol/L (98-107) 01/24/17 10:31 Glucose 111 mg/dL (75-110) H 01/24/17 10:31 Lactate 1.2 mmol/L (0.7-2.1) 01/24/17 10:31 FiO2 21.0 % 01/24/17 10:31 Sodium 135 mmol/l (132-148) 01/30/17 04:55 Potassium 3.3 MMOL/L (3.6-5.0) L 01/30/17 04:55 Chloride 103 mmol/L (98-107) 01/30/17 04:55 Carbon Dioxide 27 mmol/L (22-30) 01/30/17 04:55 Anion Gap 8 (10-20) L 01/30/17 04:55 BUN 12 mg/dl (9-20) 01/30/17 04:55 Creatinine 1.2 mg/dL (0.8-1.5) 01/30/17 04:55 Est GFR ( Amer) > 60 01/30/17 04:55 Est GFR (Non-Af Amer) 59 01/30/17 04:55 Random Glucose 94 mg/dL (75-110) 01/30/17 04:55 Uric Acid 5.2 mg/Dl (3.5-8.5) 01/26/17 04:30 Calcium 8.4 mg/dL (8.4-10.2) 01/30/17 04:55 Total Bilirubin 0.6 mg/dl (0.2-1.3) 01/24/17 10:50 AST 21 U/L (17-59) 01/24/17 10:50 ALT 24 U/L (21-72) 01/24/17 10:50 Alkaline Phosphatase 57 U/L (38-126) 01/24/17 10:50 Total Protein 5.9 G/DL (6.3-8.2) L 01/24/17 10:50 Albumin 3.3 g/dL (3.5-5.0) L 01/24/17 10:50 Globulin 2.6 gm/dL (2.2-3.9) 01/24/17 10:50 Albumin/Globulin Ratio 1.3 (1.0-2.1) 01/24/17 10:50 TSH 3rd Generation 1.45 mIU/ML (0.46-4.68) 01/26/17 12:09 Venous Blood Potassium 3.6 mmol/L (3.6-5.2) 01/24/17 10:31 Fluid Type Synovial fluid 01/29/17 14:07 Synovial WBC 1742.0 /mm3 (0.0-150.0) H 01/29/17 14:07 Synovial RBC 1206.0 /mm3 (0.0-0.0) H 01/29/17 14:07 Synovial Neutrophils 86.0 % (0-0) H 01/29/17 14:07 Synovial Lymphocytes 12.0 % (0-0) H 01/29/17 14:07 Synov Monos/Macrophage 2 % (0-0) H 01/29/17 14:07 Synovial Fluid Comment Light pink 01/29/17 14:07 Vancomycin Trough 14.4 ug/mL (5.0-10.0) H 01/28/17 06:30 Ur L.pneumophila Ag Negative (NEGATIVE) 01/24/17 17:20 Mycoplasma pneumon IgG 1.56 (<=0.90) H 01/24/17 17:20 Mycoplasma pneumon IgM 2 U/mL (<770) 01/24/17 17:20 Ur Strep pneumoniae Ag Not detected 01/24/17 17:20 Blood Type O POSITIVE 01/26/17 09:30 Antibody Screen Negative 01/26/17 09:30 Crossmatch See Detail 01/26/17 09:30 BBK History Checked Patient has bt 01/26/17 09:30 - Hospital Course Hospital Course: 76 y/o gent with hx of HTN, [place] Cancer , 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 Noted to be febrile, neutropenic on admission, started on IV antibiotics and given Neupogen. Also developed A fib with RVR w/c resolved with a dose of IV cardizem. CT of chest showed Extensive pleural-based soft tissue throughout much of the left prudencio thorax and in the right apex, suspicious for neoplastic disease. Probable central necrosis within areas of the pleural-based soft tissue in the lower left prudencio thorax. Multiple pulmonary nodules. No significant lymphadenopathy. No acute infiltrate. Patient was found to have large effusion of his left knee , small purulent lesion to right hand index finger ,purulent wound to right foot second toe. He was diagnosed with neutropenic fever and sepsis , placed on reverse isolation and started on broad spectrum antibiotics, vanco and zosyn , given granix and transfusion. ID , ortho, pulmonary and hem/on consulted His cultures were reported all negative except wound cx from right foot second toe that came back positive for Morganella Morgani and staph He underwent left knee effusion I&D by ortho and cultures were sent. At present he is hemodnamically stable . will transfer to TCU for continuation of IV antibiotics. discussed witH Id and recommended continuation of vanco and Zosyn empirically for septic arthritis at least 21 days. will hold off chemotherapy for duration of IV antibiotics. 1.Sepsis ruled in 2.Neutropenic fever Suspected sptic arthritis 3. Question of Pneumonia CT of chest : no acute infiltrate however noted multiple pulm nodules and pleural based soft tissue mass empirically on IV Zosyn and Vanco Blood c/s: negative so far , Sputum c/s pending Pulm consulted- Dr Rodriguez is following pt Mycoplasma ag IG + however , IgM pending Strep ag negative 4.Episode of atrial fibrillation with rvr resolved with IV Cardizem now SR Cardio consulted 5. 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 Right index finger /abscess s/p I&D Wound c/s with no growth ID consulted pt on IV Zosyn and Vanco 8. Left knee effusion/ suspected septic arthritis Ortho consult : Dr Del Angel Had I&D Cultures were sent on IV Zosyn and vanco for at least 21 days as per ID 9.Hypertension, chronic cont Metoprolol 10. Right foot 2nd digit ulcer was able to express out some purulent discharge Podiatry consulted Pt is on IV abx Wound c/s Morganella Morgani and staph 11 Hypokalemia replaced with KCl runs and PO 12.DVT proph on lovenox Discharge Exam - Head Exam Head Exam: ATRAUMATIC, NORMAL INSPECTION, NORMOCEPHALIC - Eye Exam Eye Exam: EOMI, PERRL Pupil Exam: NORMAL ACCOMODATION - ENT Exam ENT Exam: Mucous Membranes Moist, Normal Exam - Neck Exam Neck exam: Normal Inspection - Respiratory Exam Respiratory Exam: Clear to PA & Lateral, NORMAL BREATHING PATTERN. absent: Accessory Muscle Use, Respiratory Distress - Cardiovascular Exam Cardiovascular Exam: REGULAR RHYTHM, RRR, +S1, +S2. absent: JVD - GI/Abdominal Exam GI & Abdominal Exam: Normal Bowel Sounds, Soft. absent: Distended, Guarding, Rebound, Tenderness - Rectal Exam Rectal Exam: Deferred - Extremities Exam Extremities exam: pedal pulses present Additional comments: left knee dressing in place - Back Exam Back exam: NORMAL INSPECTION - Neurological Exam Neurological exam: Alert, CN II-XII Intact, Reflexes Normal - Psychiatric Exam Psychiatric exam: Normal Affect - Skin Skin Exam: Dry, Pallor, Warm Additional comments: right hand index finger small dry lesion right foot second toe open wound Discharge Plan - Discharge Medications Prescriptions: Fluconazole IV 200mg/100 ml NS [Diflucan IV 200 mg in NS] 200 mg IV DAILY #20 bag Vancomycin 1 GM [Vancomycin 1GM in Normal Saline [place]] 1 gm IVPB Q12 #40 bag - Follow Up Plan Condition: FAIR Disposition: TRANSF TO SNF Patient education suggested?: Yes Instructions: Lung Cancer (DC), Community Acquired Pneumonia (DC) Referrals: Dewayne Rodriguez MD [Family Provider] - Zaria Logan MD [Staff Provider] - Mina Del Angel III, MD [Staff Provider] -
[2017-01-30 12:33] VITALS: BP 158/79; PULSE 72; TEMP 97.7; O2SAT 93
--- NOTE | 2017-01-30 13:33 | CP.PCM.PN ---
Subjective - Date & Time of Evaluation Date of Evaluation: 01/30/17 Time of Evaluation: 08:00 - Subjective Subjective: feels better knee drained cltures pending await MRI right foot cont iv rx for min 3 weeks - empiric Objective - Vital Signs/Intake and Output Vital Signs (last 24 hours): Temp Pulse Resp BP Pulse Ox 97.7 F 72 18 158/79 H 93 L 01/30/17 12:32 01/30/17 12:32 01/30/17 12:32 01/30/17 12:32 01/30/17 12:32 Intake and Output: 01/30/17 01/30/17 06:59 18:59 Intake Total 760 Output Total 450 Balance 310 - Medications Medications: Current Medications Acetaminophen (Tylenol 325mg Tab) 650 mg PO Q6 PRN PRN Reason: Fever >100.4 F Al Hydrox/Mg Hydrox/Simethicone (Maalox Plus 30 Ml) 30 ml PO Q6 PRN PRN Reason: Indigestion / Heartburn Last Admin: 01/26/17 15:58 Dose: 30 ml Bacitracin (Bacitracin Oint) 1 applic TOP DAILY [facility] Last Admin: 01/30/17 08:54 Dose: 1 applic Benzocaine/Menthol (Cepacol Sore Throat) 1 lul PO Q3 PRN PRN Reason: Sore Throat Last Admin: 01/29/17 15:28 Dose: 1 lul Docusate Sodium (Colace) 100 mg PO BID [facility] Last Admin: 01/30/17 08:44 Dose: 100 mg Hydrochlorothiazide (Hydrodiuril) 25 mg PO DAILY [facility] Last Admin: 01/26/17 09:21 Dose: Not Given Hydromorphone HCl (Dilaudid) 0.5 mg IVP Q15M PRN PRN Reason: Pain, moderate (4-7) Stop: 01/30/17 14:47 Vancomycin HCl 1 gm/ Sodium (Chloride) 250 mls @ 250 mls/hr IVPB Q12H [facility] PRN Reason: Protocol Last Admin: 01/30/17 08:46 Dose: 250 mls/hr Fluconazole (Diflucan Iv 200 Mg/100 Ml Ns) 100 mls @ 100 mls/hr IVPB DAILY [facility] Stop: 01/30/17 21:00 Last Admin: 01/30/17 08:45 Dose: 100 mls/hr Metoprolol Tartrate (Lopressor) 25 mg PO Q12 [facility] Last Admin: 01/30/17 08:43 Dose: 25 mg Morphine Sulfate (Morphine) 1 mg IVP Q4 PRN PRN Reason: Pain, moderate (4-7) Last Admin: 01/30/17 06:13 Dose: 1 mg Ondansetron HCl (Zofran Inj) 4 mg IVP Q6 PRN PRN Reason: Nausea/Vomiting Pantoprazole Sodium (Protonix Ec Tab) 40 mg PO DAILY [facility] Last Admin: 01/30/17 08:46 Dose: 40 mg Sodium Chloride ([place] Nasal [place]) 1 sprays [place] Q4 PRN PRN Reason: Nasal congestion Last Admin: 01/28/17 22:24 Dose: 1 spr Zolpidem Tartrate (Ambien) 5 mg PO HS PRN PRN Reason: Insomnia Last Admin: 01/30/17 01:25 Dose: 5 mg - Labs Labs: 01/30/17 04:55 01/30/17 04:55 PT 14.2 Seconds (9.8-13.1) H 01/29/17 05:35 INR 1.3 (0.9-1.2) H 01/29/17 05:35 APTT 30.8 Seconds (25.6-37.1) 01/29/17 05:35 - Constitutional Appears: Non-toxic, Chronically Ill - Head Exam Head Exam: NORMOCEPHALIC - Eye Exam Eye Exam: PERRL. 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
--- NOTE | 2017-01-30 14:11 | CP.PCM.PN ---
Subjective - Date & Time of Evaluation Date of Evaluation: 01/30/17 Time of Evaluation: 14:09 - Subjective Subjective: Patient states finger pain improved, no pain now. Knee pain is controlled. No new complaints. Objective - Vital Signs/Intake and Output Vital Signs (last 24 hours): Temp Pulse Resp BP Pulse Ox 97.7 F 72 18 158/79 H 93 L 01/30/17 12:32 01/30/17 12:32 01/30/17 12:32 01/30/17 12:32 01/30/17 12:32 Intake and Output: 01/30/17 01/30/17 06:59 18:59 Intake Total 760 Output Total 450 Balance 310 - Medications Medications: Current Medications Acetaminophen (Tylenol 325mg Tab) 650 mg PO Q6 PRN PRN Reason: Fever >100.4 F Al Hydrox/Mg Hydrox/Simethicone (Maalox Plus 30 Ml) 30 ml PO Q6 PRN PRN Reason: Indigestion / Heartburn Last Admin: 01/26/17 15:58 Dose: 30 ml Bacitracin (Bacitracin Oint) 1 applic TOP DAILY [facility] Last Admin: 01/30/17 08:54 Dose: 1 applic Benzocaine/Menthol (Cepacol Sore Throat) 1 lul PO Q3 PRN PRN Reason: Sore Throat Last Admin: 01/29/17 15:28 Dose: 1 lul Docusate Sodium (Colace) 100 mg PO BID [facility] Last Admin: 01/30/17 08:44 Dose: 100 mg Hydrochlorothiazide (Hydrodiuril) 25 mg PO DAILY [facility] Last Admin: 01/26/17 09:21 Dose: Not Given Hydromorphone HCl (Dilaudid) 0.5 mg IVP Q15M PRN PRN Reason: Pain, moderate (4-7) Stop: 01/30/17 14:47 Vancomycin HCl 1 gm/ Sodium (Chloride) 250 mls @ 250 mls/hr IVPB Q12H [facility] PRN Reason: Protocol Last Admin: 01/30/17 08:46 Dose: 250 mls/hr Fluconazole (Diflucan Iv 200 Mg/100 Ml Ns) 100 mls @ 100 mls/hr IVPB DAILY [facility] Stop: 01/30/17 21:00 Last Admin: 01/30/17 08:45 Dose: 100 mls/hr Cefepime HCl 1 gm/ Sodium (Chloride) 100 mls @ 100 mls/hr IVPB Q12 [facility] PRN Reason: Protocol Metoprolol Tartrate (Lopressor) 25 mg PO Q12 [facility] Last Admin: 01/30/17 08:43 Dose: 25 mg Morphine Sulfate (Morphine) 1 mg IVP Q4 PRN PRN Reason: Pain, moderate (4-7) Last Admin: 01/30/17 06:13 Dose: 1 mg Ondansetron HCl (Zofran Inj) 4 mg IVP Q6 PRN PRN Reason: Nausea/Vomiting Pantoprazole Sodium (Protonix Ec Tab) 40 mg PO DAILY [facility] Last Admin: 01/30/17 08:46 Dose: 40 mg Sodium Chloride ([place] Nasal [place]) 1 sprays [place] Q4 PRN PRN Reason: Nasal congestion Last Admin: 01/28/17 22:24 Dose: 1 spr Zolpidem Tartrate (Ambien) 5 mg PO HS PRN PRN Reason: Insomnia Last Admin: 01/30/17 01:25 Dose: 5 mg - Labs Labs: 01/30/17 04:55 01/30/17 04:55 PT 14.2 Seconds (9.8-13.1) H 01/29/17 05:35 INR 1.3 (0.9-1.2) H 01/29/17 05:35 APTT 30.8 Seconds (25.6-37.1) 01/29/17 05:35 - Extremities Exam Additional comments: Let knee: dressing intact, +ROm ankle/toes, senation intact, +DP pulse calves soft NT neg homans Assessment and Plan (1) Knee effusion, left Assessment & Plan: POD#1 s/p I&D awaiting cultures hemarthrosis vs septic joint after period of pancytopenia d/w Dr. Del Angel, to review cx, ID f/u PT/OT Status: Acute
[2017-01-30] MEDS: Nasal Spray(Ocean spray) NAS PRN (14:58)
--- NOTE | 2017-01-30 18:56 | OP ---
PROCEDURE DATE: 01/29/2017 PREOPERATIVE DIAGNOSIS: Left knee effusion, status post successful revision left total knee replacement. POSTOPERATIVE DIAGNOSIS: Rule out sepsis. PROCEDURES: 1. Surgical arthroscopy, irrigation and drainage for infection. 2. Surgical arthroscopy, partial tricompartmental synovectomy. SURGEON: Mina Del Angel MD. PETROGRAPHY TEACHER: Rebecca Arzola, certified registered nursing statistical assistant. TYPE OF ANESTHESIA: General endotracheal anesthesia. ANESTHESIA ADMINISTERED BY: Angel Edge MD. COMPLICATIONS: None. DRAINS: None. OPERATIVE INDICATIONS: Sunday Leonardo is a gentleman who underwent a successful total knee replacement arthroplasty approximately 8 weeks ago. 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 At the same time, the patient developed a left knee effusion, which is painful. Patient is admitted, medical stabilization was accomplished. Patient had a hep clotting factor and dyscrasias. After medical stabilization, the patient is taken to Surgery. Pros, cons, risks, and benefits of the surgical approach were discussed. The possibility of mechanical failure, infection, thromboembolic disease, secondary or tertiary surgery is discussed. The concept of arthroscopy, debridement, and possible later removal of hardware and insertion of antibiotic-impregnated spacer is discussed. The possibility again of mechanical failure, infection, thromboembolic disease, secondary or tertiary surgery is discussed. The patient can no longer withstand the discomfort and wished the surgery to be accomplished. OPERATIVE PROCEDURE: After having obtained informed consent in the above fashion, after having identified the side, site, and procedure and a critical pause/timeout, after the satisfactory induction of the anesthetic, the patient was identified as Sunday Leonardo in the supine position with all bony prominences well-padded and lower extremity was prepped and free-draped in the usual fashion for lower extremity surgery. No tourniquet is employed. The joint was insufflated with 10 mL of 1% lidocaine without epinephrine. At a point approximately one thumbs breadth lateral to the inferior anterior pole of the patella using a #11 blade followed by spreading, the arthroscope was introduced. Examination of the joint commenced. There was found to be evidence of a severe tricompartmental synovitis. Triangulation was accomplished using a #18-gauge spinal needle followed by #11 blade, followed by spreading. With the arthroscope anterolaterally, a careful partial tricompartmental synovectomy is accomplished. Prior to accomplishing the synovectomy, there was an egress of fluid. The knee is drained, stat Gram stain is sent, number of white cells per high power field, aerobic, anaerobic, AFB, and fungal cultures. Again, from an anteromedial portal, using a #18-gauge spinal needle, followed by #11 blade, followed by spreading, the blunt trocar was introduced with the arthroscope anterolaterally, the Celine shaver was placed anteromedially and a careful partial tricompartmental synovectomy is accomplished. Please refer to the video photographs. With the arthroscope now transferred anteromedially with the knee in full extension, the suprapatellar fascia was evaluated. The interface of the components of patella, the tibial polyethylene, and the position of the components was found to be excellent. The wound is thoroughly irrigated. A careful partial tricompartmental synovectomy is completed. Careful irrigation, debridement, and drainage for possible infection was accomplished. The wound is thoroughly irrigated with approximately 3000 mL of antibiotic impregnated fluid. Closure is in layers with interrupted Vicryl and nylon. Luis Umana compression dressing and knee immobilizers were applied. Mina Del Angel MD
[2017-01-30] MEDS ORDERED: Cefepime 1 GM in Sodium Chloride 0.9% 100 ML IVPB SCH (21:00)
== END 2017-01-30 15:18 | DRG 853 ==
LOC: H.ER 10:18 → H.ERHOLD 11:37 → H.TEL 18:36
PROVIDERS: ADMIT Internal Medicine; ATTEND Internal Medicine
PROC: 30233N1 Transfusion of Nonautologous Red Blood Cells into Peripheral Vein, Percutaneous Approach (ICD-10-PCS; 2017-01-26)
PROC: 0JBQ0ZZ Excision of Right Foot Subcutaneous Tissue and Fascia, Open Approach (ICD-10-PCS; 2017-01-27)
PROC: 0H9FXZZ Drainage of Right Hand Skin, External Approach (ICD-10-PCS; 2017-01-27)
PROC: 0S9D4ZX Drainage of Left Knee Joint, Percutaneous Endoscopic Approach, Diagnostic (ICD-10-PCS; 2017-01-29)
PROC: 0SBD4ZZ Excision of Left Knee Joint, Percutaneous Endoscopic Approach (ICD-10-PCS; principal; 2017-01-29 10:45)
DX: A41.9 Sepsis, unspecified organism (principal); D61.810 Antineoplastic chemotherapy induced pancytopenia; J90 Pleural effusion, not elsewhere classified; C78.01 Secondary malignant neoplasm of right lung; C78.02 Secondary malignant neoplasm of left lung; C78.7 Secondary malignant neoplasm of liver and intrahepatic bile duct; L03.116 Cellulitis of left lower limb; L02.511 Cutaneous abscess of right hand; L02.611 Cutaneous abscess of right foot; J98.11 Atelectasis; M65.862 Other synovitis and tenosynovitis, left lower leg; M25.462 Effusion, left knee; D69.59 Other secondary thrombocytopenia; I48.91 Unspecified atrial fibrillation; E87.6 Hypokalemia; L97.519 Non-pressure chronic ulcer of other part of right foot with unspecified severity; T45.1X5A Adverse effect of antineoplastic and immunosuppressive drugs, initial encounter; I10 Essential (primary) hypertension; Z92.21 Personal history of antineoplastic chemotherapy; Z85.821 Personal history of Merkel cell carcinoma; B95.2 Enterococcus as the cause of diseases classified elsewhere; B95.61 Methicillin susceptible Staphylococcus aureus infection as the cause of diseases classified elsewhere; B96.4 Proteus (mirabilis) (morganii) as the cause of diseases classified elsewhere; Z96.652 Presence of left artificial knee joint; Z92.3 Personal history of irradiation; H91.90 Unspecified hearing loss, unspecified ear; Z87.891 Personal history of nicotine dependence; Z79.82 Long term (current) use of aspirin

== ENCOUNTER 2017-01-30 12:39 | Inpatient (IN) | payer OTHER ==
[2017-01-30 15:30] VITALS: BMI 30.6
[2017-01-30] MEDS ORDERED: Nasal Spray(Ocean spray) NAS PRN (17:15)
[2017-01-30] MEDS ORDERED: Benzocaine/Menthol (Cepacol) Lozenge PO PRN (17:15)
[2017-01-30 17:35] VITALS: RESP 20
[2017-01-30] MEDS ORDERED: Patient's Own Med (Vancomycin 1 Gm [Vancomycin 1gm In Normal Saline Addvantage] 1 GM) IVPB SCH (21:00)
[2017-01-30] MEDS ORDERED: Cefepime 1 GM in Sodium Chloride 0.9% 100 ML IVPB SCH (21:00)
[2017-01-31] MEDS: Cefepime 1 GM in Sodium Chloride 0.9% 100 ML IVPB SCH ×2 (05:27→16:55)
[2017-01-31 07:42] LABS: BASO # 0.1 K/uL (0.0-0.2); BASO % 0.6 % (0.0-2.0); HEMATOCRIT 27.4 % (35.0-51.0); LYMPH # 1.1 K/uL (1.0-4.3); LYMPH % 7.2 % (20.0-40.0); MEAN CELL VOLUME 75.4 fl (80.0-94.0); MEAN CORPUSCULAR HEMOGLOBIN 24.7 pg (27.0-31.0); MEAN CORPUSCULAR HGB CONC 32.7 g/dL (33.0-37.0); MEAN PLATELET VOLUME 8.2 fl (7.2-11.7); MONO # 1.6 K/uL (0.0-0.8); MONO % 10.7 % (0.0-10.0); NEUT # 12.1 K/uL (1.8-7.0); NEUT % 81.5 % (50.0-75.0); NRBC % 0.1 % (0.0-0.0); PLATELET COUNT 145 K/uL (130-400); RED CELL DISTRIBUTION WIDTH 18.8 % (11.5-14.5); WHITE BLOOD COUNT 14.8 K/uL (4.8-10.8)
[2017-01-31 07:58] LABS: BLOOD UREA NITROGEN 11 mg/dl (9-20); CALCIUM 8.5 mg/dL (8.4-10.2); CARBON DIOXIDE 23 mmol/L (22-30); CHLORIDE 101 mmol/L (98-107); GFR AFRICAN-AMERICAN > 60; GLUCOSE,RANDOM 94 mg/dL (75-110); POTASSIUM 3.1 MMOL/L (3.6-5.0); SODIUM 133 mmol/l (132-148)
[2017-01-31] MEDS: Bacitracin OINT 15GM TOP SCH (08:38)
[2017-01-31] MEDS: Pantoprazole 40 mg EC Tab PO SCH (08:40)
[2017-01-31] MEDS: Enoxaparin 40 mg Syringe SC SCH (08:41)
[2017-01-31] MEDS ORDERED: [UNRECOGNIZED DRUG - OTHER] IV SCH (09:00)
[2017-01-31] MEDS ORDERED: FLUCONAZOLE 200 MG/100 ML IV SCH (09:00)
--- NOTE | 2017-01-31 10:24 | CP.PCM.PN ---
Subjective - Date & Time of Evaluation Date of Evaluation: 01/31/17 Time of Evaluation: 10:20 - Subjective Subjective: s- PT WITH minimal discomfort L knee this AM Objective - Vital Signs/Intake and Output Vital Signs (last 24 hours): Temp Pulse Resp BP Pulse Ox 97.3 F L 85 20 140/78 90 L 01/31/17 08:13 01/31/17 08:40 01/31/17 08:13 01/31/17 08:40 01/31/17 08:13 - Medications Medications: Current Medications Acetaminophen (Tylenol 325mg Tab) 650 mg PO Q6 PRN PRN Reason: Fever >100.4 F Last Admin: 01/30/17 16:24 Dose: 650 mg Acetaminophen (Tylenol 325mg Tab) 650 mg PO Q6 PRN PRN Reason: Fever >100.4 F Al Hydrox/Mg Hydrox/Simethicone (Maalox Plus 30 Ml) 30 ml PO Q6 PRN PRN Reason: Indigestion / Heartburn Bacitracin (Bacitracin Oint) 1 applic TOP DAILY [facility] Last Admin: 01/31/17 08:38 Dose: 1 applic Benzocaine/Menthol (Cepacol Sore Throat) 1 lul PO Q3 PRN PRN Reason: Sore Throat Docusate Sodium (Colace) 100 mg PO BID PRN PRN Reason: Constipation Docusate Sodium (Colace) 100 mg PO BID [facility] Last Admin: 01/31/17 08:39 Dose: 100 mg Enoxaparin Sodium (Lovenox) 40 mg SC DAILY [facility] PRN Reason: Protocol Last Admin: 01/31/17 08:41 Dose: 40 mg Hydrochlorothiazide (Hydrodiuril) 25 mg PO DAILY [facility] Last Admin: 01/31/17 08:41 Dose: 25 mg Cefepime HCl 1 gm/ Sodium (Chloride) 100 mls @ 100 mls/hr IVPB Q12@0500,1700 [facility] PRN Reason: Protocol Last Admin: 01/31/17 05:27 Dose: 100 mls/hr Fluconazole (Diflucan Iv 200 Mg/100 Ml Ns) 100 mls @ 100 mls/hr IVPB DAILY [facility] Metoprolol Tartrate (Lopressor) 25 mg PO Q12 [facility] Last Admin: 01/31/17 08:40 Dose: 25 mg Pantoprazole Sodium (Protonix Ec Tab) 40 mg PO DAILY [facility] Last Admin: 01/31/17 08:40 Dose: 40 mg Sodium Chloride ([place] Nasal [place]) 1 sprays [place] Q4 PRN PRN Reason: Nasal congestion Zolpidem Tartrate (Ambien) 5 mg PO HS PRN PRN Reason: Insomnia Last Admin: 01/30/17 23:07 Dose: 5 mg - Labs Labs: 01/31/17 07:20 01/31/17 07:20 - Additional Findings Additional findings: Objectiev stance/gait-deferred L knee wound benign N/v lab results noted, number of WBCS per high power field noted N/V intact no progressive defcitis Xrasy- reveal excellent position of construct Assessment and Plan - Assessment and Plan (Free Text) Assessment: A- s/p surgical arthroscopy and debrisem,tn for late septic L TKR( in setting of neurtopenia and 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
--- NOTE | 2017-01-31 11:10 | CP.PCM.PN ---
Subjective - Date & Time of Evaluation Date of Evaluation: 01/31/17 Time of Evaluation: 11:04 - Subjective Subjective: Pt is afebrile, ad all his c/s other than the foot are either negative or still pending. The cbc is more or less stable. The knee is less swollen and pt has lesser pain. C/S not yet available. His appetite slightly better CBC more or less stable. continue the antibiotics Objective - Vital Signs/Intake and Output Vital Signs (last 24 hours): Temp Pulse Resp BP Pulse Ox 97.3 F L 85 20 140/78 90 L 01/31/17 08:13 01/31/17 08:40 01/31/17 08:13 01/31/17 08:40 01/31/17 08:13 - Medications Medications: Current Medications Acetaminophen (Tylenol 325mg Tab) 650 mg PO Q6 PRN PRN Reason: Fever >100.4 F Last Admin: 01/30/17 16:24 Dose: 650 mg Acetaminophen (Tylenol 325mg Tab) 650 mg PO Q6 PRN PRN Reason: Fever >100.4 F Al Hydrox/Mg Hydrox/Simethicone (Maalox Plus 30 Ml) 30 ml PO Q6 PRN PRN Reason: Indigestion / Heartburn Bacitracin (Bacitracin Oint) 1 applic TOP DAILY [facility] Last Admin: 01/31/17 08:38 Dose: 1 applic Benzocaine/Menthol (Cepacol Sore Throat) 1 lul PO Q3 PRN PRN Reason: Sore Throat Docusate Sodium (Colace) 100 mg PO BID PRN PRN Reason: Constipation Docusate Sodium (Colace) 100 mg PO BID [facility] Last Admin: 01/31/17 08:39 Dose: 100 mg Enoxaparin Sodium (Lovenox) 40 mg SC DAILY [facility] PRN Reason: Protocol Last Admin: 01/31/17 08:41 Dose: 40 mg Hydrochlorothiazide (Hydrodiuril) 25 mg PO DAILY [facility] Last Admin: 01/31/17 08:41 Dose: 25 mg Cefepime HCl 1 gm/ Sodium (Chloride) 100 mls @ 100 mls/hr IVPB Q12@0500,1700 [facility] PRN Reason: Protocol Last Admin: 01/31/17 05:27 Dose: 100 mls/hr Fluconazole (Diflucan Iv 200 Mg/100 Ml Ns) 100 mls @ 100 mls/hr IVPB DAILY [facility] Metoprolol Tartrate (Lopressor) 25 mg PO Q12 [facility] Last Admin: 01/31/17 08:40 Dose: 25 mg Pantoprazole Sodium (Protonix Ec Tab) 40 mg PO DAILY [facility] Last Admin: 01/31/17 08:40 Dose: 40 mg Sodium Chloride ([place] Nasal [place]) 1 sprays [place] Q4 PRN PRN Reason: Nasal congestion Zolpidem Tartrate (Ambien) 5 mg PO HS PRN PRN Reason: Insomnia Last Admin: 01/30/17 23:07 Dose: 5 mg - Labs Labs: 01/31/17 07:20 01/31/17 07:20
--- NOTE | 2017-01-31 12:11 | RAD ---
PROCEDURE: Left Knee Radiographs. HISTORY: Pain. , prior left knee replacement COMPARISON: 01/27/2017 FINDINGS: BONES: Two views of the left knee were performed and compared to prior study. There is evidence of left knee replacement. This appears to be in normal anatomic position. Since the prior examination there appears to be increased soft tissue swelling in the suprapatellar region. A tiny amount of air is seen superior to the patella. There is additional soft tissue swelling seen in the prepatellar region. This soft tissue swelling represents interval change from prior study. No fracture is seen. No lytic process is identified. There is no abnormal lucency at the bone prosthesis interface. Suprapatellar joint effusion is suspected. JOINTS: See above JOINT EFFUSION: See above OTHER FINDINGS: None. IMPRESSION: Status post left knee replacement. Interval increase in probable suprapatellar joint effusion and anterior knee soft tissue swelling.
[2017-01-31 12:20] LABS: METAMYELOCYTE 2 % (0-0); MYELOCYTE 3 % (0-0); NEUTROPHIL 61 % (42-75); TOTAL CELLS COUNTED 100
[2017-01-31] MEDS: Alum-Mag Hydrox-Simethicone Susp (30 mL) PO PRN (12:41)
[2017-01-31] MEDS: Fluconazole IV 200mg/100 ml NS 100 ML IVPB SCH (12:43)
--- NOTE | 2017-01-31 13:24 | CP.PCM.PN ---
Subjective - Date & Time of Evaluation Date of Evaluation: 01/31/17 Time of Evaluation: 13:02 - Subjective Subjective: 76-year-old male was admitted initially to acute medicine through the emergency room because of active cough and shortness of breath with severe leukopenia. 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 He was given Granix and his white blood cell count recovered and his pneumonia was successfully treated. He does have swelling in his left knee where he had a recent orthopedic procedure and this was also drained and biopsied recently. He is presently in transitional care for continued antibiotic therapy and physical therapy. He is a former cigarette smoker who in all likelihood has underlying chronic pulmonary disease based on his history. He also has a history of chronic anxiety as well as insomnia, gastritis, significant hearing loss and hypertension. He is comfortably seated in the dining room in a wheelchair. There is dullness to percussion in the posterior lower third of the left chest. Breath sounds are diminished bilaterally and are absent in the left base. No audible wheezing or bronchial breathing. No rales. Current medical management will continue unchanged. No new intervention planned regarding his lung disease. He will resume chemotherapy when able. Objective - Vital Signs/Intake and Output Vital Signs (last 24 hours): Temp Pulse Resp BP Pulse Ox 97.3 F L 85 20 140/78 95 01/31/17 08:13 01/31/17 08:40 01/31/17 08:13 01/31/17 08:40 01/31/17 12:14 - Medications Medications: Current Medications Acetaminophen (Tylenol 325mg Tab) 650 mg PO Q6 PRN PRN Reason: Fever >100.4 F Last Admin: 01/30/17 16:24 Dose: 650 mg Acetaminophen (Tylenol 325mg Tab) 650 mg PO Q6 PRN PRN Reason: Fever >100.4 F Al Hydrox/Mg Hydrox/Simethicone (Maalox Plus 30 Ml) 30 ml PO Q6 PRN PRN Reason: Indigestion / Heartburn Last Admin: 01/31/17 12:41 Dose: 30 ml Bacitracin (Bacitracin Oint) 1 applic TOP DAILY [facility] Last Admin: 01/31/17 08:38 Dose: 1 applic Benzocaine/Menthol (Cepacol Sore Throat) 1 lul PO Q3 PRN PRN Reason: Sore Throat Docusate Sodium (Colace) 100 mg PO BID PRN PRN Reason: Constipation Docusate Sodium (Colace) 100 mg PO BID [facility] Last Admin: 01/31/17 08:39 Dose: 100 mg Enoxaparin Sodium (Lovenox) 40 mg SC DAILY [facility] PRN Reason: Protocol Last Admin: 01/31/17 08:41 Dose: 40 mg Hydrochlorothiazide (Hydrodiuril) 25 mg PO DAILY [facility] Last Admin: 01/31/17 08:41 Dose: 25 mg Cefepime HCl 1 gm/ Sodium (Chloride) 100 mls @ 100 mls/hr IVPB Q12@0500,1700 [facility] PRN Reason: Protocol Last Admin: 01/31/17 05:27 Dose: 100 mls/hr Fluconazole (Diflucan Iv 200 Mg/100 Ml Ns) 100 mls @ 100 mls/hr IVPB DAILY [facility] Last Admin: 01/31/17 12:43 Dose: 100 mls/hr Metoprolol Tartrate (Lopressor) 25 mg PO Q12 [facility] Last Admin: 01/31/17 08:40 Dose: 25 mg Pantoprazole Sodium (Protonix Ec Tab) 40 mg PO DAILY [facility] Last Admin: 01/31/17 08:40 Dose: 40 mg Sodium Chloride ([place] Nasal [place]) 1 sprays [place] Q4 PRN PRN Reason: Nasal congestion Zolpidem Tartrate (Ambien) 5 mg PO HS PRN PRN Reason: Insomnia Last Admin: 01/30/17 23:07 Dose: 5 mg - Labs Labs: 01/31/17 07:20 01/31/17 07:20
--- NOTE | 2017-01-31 13:32 | CP.PCM.HP ---
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 Noted to be febrile, neutropenic on admission, started on IV antibiotics and given Neupogen. Also developed A fib with RVR w/c resolved with a dose of IV cardizem. CT of chest showed Extensive pleural-based soft tissue throughout much of the left prudencio thorax and in the right apex, suspicious for neoplastic disease. Probable central necrosis within areas of the pleural-based soft tissue in the lower left prudencio thorax. Multiple pulmonary nodules. No significant lymphadenopathy. No acute infiltrate. Patient was found to have large effusion of his left knee , small purulent lesion to right hand index finger ,purulent wound to right foot second toe. He was diagnosed with neutropenic fever and sepsis , placed on reverse isolation and started on broad spectrum antibiotics, vanco and zosyn , given granix and transfusion. ID , ortho, pulmonary and hem/on consulted His cultures were reported all negative except wound cx from right foot second toe that came back positive for Morganella Morgani and staph He underwent left knee effusion I&D by ortho and cultures were sent. Pt transferred to TCU for continuation of IV antibiotics, Vanco and Zosyn empirically for septic arthritis at least 21 days. will hold off chemotherapy for duration of IV antibiotics. ROS PER HPI ALL OTHER SYSTEMS REVIEWED AND NEGATIVE Present on Admission - Present on Admission Any Indicators Present on Admission: No Past Patient History - Infectious Disease Hx of Infectious Diseases: None - Tetanus Immunizations Tetanus Immunization: Unknown - Past Medical History & Family History Past Medical History?: Yes - Past Social History Smoking Status: Former Smoker - CARDIAC Hx Cardiac Disorders: Yes Hx Hypertension: Yes - PULMONARY Hx Respiratory Disorders: Yes Hx Lung Cancer: Yes - NEUROLOGICAL Hx Neurological Disorder: No - HEENT Hx HEENT Problems: Yes Other/Comment: Significant hearing loss. - RENAL Hx Chronic Kidney Disease: No - ENDOCRINE/METABOLIC Hx Endocrine Disorders: No - HEMATOLOGICAL/ONCOLOGICAL Hx Blood Disorders: Yes Hx Cancer: Yes ([place] cell cancer of the scalp.) Other/Comment: lung ca - INTEGUMENTARY Hx Dermatological Problems: Yes Other/Comment: [place] cell tumor of the scalp. - MUSCULOSKELETAL/RHEUMATOLOGICAL Hx Falls: Yes - GASTROINTESTINAL Hx Gastrointestinal Disorders: Yes Hx Gastritis: Yes - GENITOURINARY/GYNECOLOGICAL Hx Genitourinary Disorders: No - PSYCHIATRIC Hx Anxiety: Yes Hx Substance Use: No Other/Comment: Insomnia. - SURGICAL HISTORY Hx Arthroscopy: Yes (left knee) Hx Orthopedic Surgery: Yes (left knee replacement 11/03) Other/Comment: Excision of tumor on the scalp. Chest tube placement for pleural effusion followed by pleurodesis. right fourth toe amputation - ANESTHESIA Hx Anesthesia: Yes Hx Anesthesia Reactions: No Hx Malignant Hyperthermia: No Meds Allergies/Adverse Reactions: Allergies Allergy/AdvReac Type Severity Reaction Status Date / Time No Known Allergies Allergy Verified 01/30/17 15:30 Results - Vital Signs Recent Vital Signs: Last Vital Signs Temp 97.3 F L 01/31/17 08:13 Pulse 85 01/31/17 08:40 Resp 20 01/31/17 08:13 BP 140/78 01/31/17 08:40 Pulse Ox 95 01/31/17 12:14 - Labs Result Diagrams: 01/31/17 07:20 01/31/17 07:20 Labs: Laboratory Results - last 24 hr 01/31/17 01/31/17 07:20 07:20 WBC 14.8 H RBC 3.63 L Hgb 8.9 L Hct 27.4 L MCV 75.4 L MCH 24.7 L MCHC 32.7 L RDW 18.8 H Plt Count 145 MPV 8.2 Neut % (Auto) 81.5 H Lymph % (Auto) 7.2 L Wood % (Auto) 10.7 H Eos % (Auto) 0.0 Baso % (Auto) 0.6 Neut # 12.1 H Lymph # 1.1 Wood # 1.6 H Eos # 0.0 Baso # 0.1 Neutrophils % (Manual) 61 Band Neutrophils % 8 H Lymphocytes % (Manual) 11 L Monocytes % (Manual) 15 H Metamyelocytes % 2 H Myelocytes % 3 H Toxic Granulation Present Platelet Estimate Normal Hypochromasia (manual) Slight Anisocytosis (manual) Slight Sodium 133 Potassium 3.1 L Chloride 101 Carbon Dioxide 23 Anion Gap 12 BUN 11 Creatinine 1.0 Est GFR ( Amer) > 60 Est GFR (Non-Af Amer) > 60 Random Glucose 94 Calcium 8.5 Assessment & Plan - Assessment and Plan (Free Text) Plan: 1.Sepsis ruled in 2.Neutropenic fever Suspected sEEptic arthritis 3. Question of Pneumonia CT of chest : no acute infiltrate however noted multiple pulm nodules and pleural based soft tissue mass empirically on IV Zosyn and Vanco Blood c/s: negative so far , Sputum c/s pending Pulm consulted- Dr Rodriguez is following pt Mycoplasma ag IG + however , IgM pending Strep ag negative 4.Episode of atrial fibrillation with rvr resolved with IV Cardizem now SR Cardio consulted 5. Severe neutropenia/pancytopenia secondary to chemotherapy Neutropenia now resolved with Granix d/c reverse isolation Heme Onc - Dr Donny Logan is following pt 6.[place] cell cancer with metastatic spread to liver, lungs Oncology following pt hold chemo for duration of Iv antibiotics 7. Right index finger /abscess s/p I&D Wound c/s with no growth ID consulted pt on IV Zosyn and Vanco 8. Left knee effusion/ suspected septic arthritis Ortho consult : Dr Del Angel Had I&D Cultures were sent on IV Zosyn and vanco for at least 21 days as per ID 9.Hypertension, chronic cont Metoprolol 10. Right foot 2nd digit ulcer was able to express out some purulent discharge Podiatry consulted Pt is on IV abx Wound c/s Morganella Morgani and staph 11 Hypokalemia replaced with KCl runs and PO 12.DVT proph on lovenox
[2017-01-31] MEDS ORDERED: Potassium Chloride 20 mEq ER Tab PO ONE (13:48)
--- NOTE | 2017-01-31 16:52 | CP.PCM.PN ---
Subjective - Date & Time of Evaluation Date of Evaluation: 01/31/17 Time of Evaluation: 13:00 - Subjective Subjective: Podiatry Progress Note - Dr. Treadwell 76 year old male patient PMHx [place] cell carcinoma with lung metastasis, left knee effusion s/p L knee I&D,seen at bedside in TCU for right 2nd digit wound. Patient seen sleeping comfortably at time of visit. Patient is accompanied by his sister at bedside. Patient denies any acute overnight events. Patient denies any pain to his right 2nd toe. Patient denies N/V/F/D/C/SOB/calf pain. Offers no other pedal complaints at this time. Objective - Vital Signs/Intake and Output Vital Signs (last 24 hours): Temp Pulse Resp BP Pulse Ox 97.3 F L 81 20 140/78 95 01/31/17 08:13 01/31/17 15:11 01/31/17 08:13 01/31/17 08:40 01/31/17 15:11 - Medications Medications: Current Medications Acetaminophen (Tylenol 325mg Tab) 650 mg PO Q6 PRN PRN Reason: Fever >100.4 F Last Admin: 01/30/17 16:24 Dose: 650 mg Acetaminophen (Tylenol 325mg Tab) 650 mg PO Q6 PRN PRN Reason: Fever >100.4 F Al Hydrox/Mg Hydrox/Simethicone (Maalox Plus 30 Ml) 30 ml PO Q6 PRN PRN Reason: Indigestion / Heartburn Last Admin: 01/31/17 12:41 Dose: 30 ml Bacitracin (Bacitracin Oint) 1 applic TOP DAILY [facility] Last Admin: 01/31/17 08:38 Dose: 1 applic Benzocaine/Menthol (Cepacol Sore Throat) 1 lul PO Q3 PRN PRN Reason: Sore Throat Docusate Sodium (Colace) 100 mg PO BID PRN PRN Reason: Constipation Docusate Sodium (Colace) 100 mg PO BID [facility] Last Admin: 01/31/17 08:39 Dose: 100 mg Enoxaparin Sodium (Lovenox) 40 mg SC DAILY [facility] PRN Reason: Protocol Last Admin: 01/31/17 08:41 Dose: 40 mg Hydrochlorothiazide (Hydrodiuril) 25 mg PO DAILY [facility] Last Admin: 01/31/17 08:41 Dose: 25 mg Cefepime HCl 1 gm/ Sodium (Chloride) 100 mls @ 100 mls/hr IVPB Q12@0500,1700 [facility] PRN Reason: Protocol Last Admin: 01/31/17 05:27 Dose: 100 mls/hr Fluconazole (Diflucan Iv 200 Mg/100 Ml Ns) 100 mls @ 100 mls/hr IVPB DAILY [facility] Last Admin: 01/31/17 12:43 Dose: 100 mls/hr Metoprolol Tartrate (Lopressor) 25 mg PO Q12 [facility] Last Admin: 01/31/17 08:40 Dose: 25 mg Pantoprazole Sodium (Protonix Ec Tab) 40 mg PO DAILY [facility] Last Admin: 01/31/17 08:40 Dose: 40 mg Sodium Chloride ([place] Nasal [place]) 1 sprays [place] Q4 PRN PRN Reason: Nasal congestion Zolpidem Tartrate (Ambien) 5 mg PO HS PRN PRN Reason: Insomnia Last Admin: 01/30/17 23:07 Dose: 5 mg - Labs Labs: 01/31/17 07:20 01/31/17 07:20 - Constitutional Appears: Well, Non-toxic, No Acute Distress - Extremities Exam Additional comments: RLE focused physical exam: Vasc: DP and PT pulses palpable 2/4. CFT <3 seconds to all digits. Temperature gradient warm to warm. No edema noted. No increase in warmth right 2nd digit Neuro: Gross sensation slightly diminished. Derm: Hyperkeratosis surround ulceration from healthy skin. Ulceration measuring approximately 0.3 x 0.3 x 0.3 cm noted to plantar aspect of 2nd digit distal tuft - ulcer is noted to have a 100% granular base and hyperkeratotic rim. No purulence or drainage noted. No malodor, no fluctuance, no probe to bone noted. Ortho: No tenderness to palpation right 2nd digit. 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 - Neurological Exam Neurological Exam: Alert, Awake, Oriented x3 - Psychiatric Exam Psychiatric exam: Normal Affect, Normal Mood Assessment and Plan - Assessment and Plan (Free Text) Assessment: 76 year old male patient PMH [place] cell carcinoma with lung metastasis, left knee effusion with right 2nd digit plantar ulceration Plan: Patient seen and evaluated at bedside Discussed with attending, Dr. Treadwell Labs and vitals reviewed = WBC 14.8 (decreasing), Tmax 98.4 Hyperkeratotic tissue excisionally debrided using a #15 blade without incident. - Debridement to healthy skin - S/p debridement ulceration measures 0.3 x 0.3 x 0.1, noted to have a 100% granular base - No erythema periwound Bacitracin applied to ulceration and right 2nd digit dressed with DSD Continue with local wound care Right foot wound culture final report - candace morganii ss morganii, staphylococcus aureus Continue abx per ID = Cefepime Podiatry will continue to follow patient while in house
[2017-02-01] MEDS: Cefepime 1 GM in Sodium Chloride 0.9% 100 ML IVPB SCH (06:01)
[2017-02-01 07:26] LABS: BLOOD UREA NITROGEN 12 mg/dl (9-20); CALCIUM 8.7 mg/dL (8.4-10.2); CARBON DIOXIDE 27 mmol/L (22-30); CHLORIDE 99 mmol/L (98-107); GFR AFRICAN-AMERICAN > 60; GLUCOSE,RANDOM 96 mg/dL (75-110); MAGNESIUM 1.2 MG/DL (1.6-2.3); POTASSIUM 3.2 MMOL/L (3.6-5.0); SODIUM 135 mmol/l (132-148)
[2017-02-01] MEDS: Pantoprazole 40 mg EC Tab PO SCH (08:39)
[2017-02-01] MEDS: Enoxaparin 40 mg Syringe SC SCH (08:40)
[2017-02-01] MEDS: Fluconazole IV 200mg/100 ml NS 100 ML IVPB SCH (08:41)
[2017-02-01] MEDS: Bacitracin OINT 15GM TOP SCH (09:48)
[2017-02-01] MEDS ORDERED: Potassium Chloride 20 mEq ER Tab PO ONE (11:02)
--- NOTE | 2017-02-01 12:34 | CP.PCM.PN ---
Subjective - Date & Time of Evaluation Date of Evaluation: 02/01/17 Time of Evaluation: 13:45 - Subjective Subjective: Podiatry Progress Note - Dr. Treadwell 76 year old male patient PMHx [place] cell carcinoma with lung metastasis, left knee effusion s/p L knee I&D,seen at bedside in TCU for right 2nd digit wound. Patient seen sleeping comfortably at time of visit. Patient denies any acute overnight events. Patient denies any pain to his right 2nd toe. Patient states his left knee is feeling better with less pain. Patient denies N/V/F/D/C/SOB/ calf pain. Offers no other pedal complaints at this time. Objective - Vital Signs/Intake and Output Vital Signs (last 24 hours): Temp Pulse Resp BP Pulse Ox 97.5 F L 82 20 135/75 99 02/01/17 08:13 02/01/17 08:39 02/01/17 08:13 02/01/17 08:39 02/01/17 08:13 - Medications Medications: Current Medications Acetaminophen (Tylenol 325mg Tab) 650 mg PO Q6 PRN PRN Reason: Fever >100.4 F Last Admin: 01/30/17 16:24 Dose: 650 mg Acetaminophen (Tylenol 325mg Tab) 650 mg PO Q6 PRN PRN Reason: Fever >100.4 F Al Hydrox/Mg Hydrox/Simethicone (Maalox Plus 30 Ml) 30 ml PO Q6 PRN PRN Reason: Indigestion / Heartburn Last Admin: 01/31/17 12:41 Dose: 30 ml Bacitracin (Bacitracin Oint) 1 applic TOP DAILY [facility] Last Admin: 02/01/17 09:48 Dose: 1 applic Benzocaine/Menthol (Cepacol Sore Throat) 1 lul PO Q3 PRN PRN Reason: Sore Throat Docusate Sodium (Colace) 100 mg PO BID PRN PRN Reason: Constipation Docusate Sodium (Colace) 100 mg PO BID [facility] Last Admin: 02/01/17 08:42 Dose: 100 mg Enoxaparin Sodium (Lovenox) 40 mg SC DAILY [facility] PRN Reason: Protocol Last Admin: 02/01/17 08:40 Dose: 40 mg Hydrochlorothiazide (Microzide) 12.5 mg PO DAILY [facility] Cefepime HCl 1 gm/ Sodium (Chloride) 100 mls @ 100 mls/hr IVPB Q12@0500,1700 [facility] PRN Reason: Protocol Last Admin: 02/01/17 06:01 Dose: 100 mls/hr Fluconazole (Diflucan Iv 200 Mg/100 Ml Ns) 100 mls @ 100 mls/hr IVPB DAILY [facility] Last Admin: 02/01/17 08:41 Dose: 100 mls/hr Metoprolol Tartrate (Lopressor) 25 mg PO Q12 [facility] Last Admin: 02/01/17 08:39 Dose: 25 mg Pantoprazole Sodium (Protonix Ec Tab) 40 mg PO DAILY [facility] Last Admin: 02/01/17 08:39 Dose: 40 mg Sodium Chloride ([place] Nasal [place]) 1 sprays [place] Q4 PRN PRN Reason: Nasal congestion Zolpidem Tartrate (Ambien) 5 mg PO HS PRN PRN Reason: Insomnia Last Admin: 01/31/17 21:23 Dose: 5 mg - Labs Labs: 01/31/17 07:20 02/01/17 06:00 - Constitutional Appears: Well, Non-toxic, No Acute Distress - Extremities Exam Additional comments: RLE focused physical exam: Vasc: DP and PT pulses palpable 2/4. CFT <3 seconds to all digits. Temperature gradient warm to warm. No edema noted. No increase in warmth right 2nd digit Neuro: Gross sensation slightly diminished. Derm: Ulceration measuring approximately 0.3 x 0.3 x 0.1 cm noted to plantar aspect of 2nd digit distal tuft - ulcer is noted to have a 100% granular base. No purulence or drainage noted. No malodor, no fluctuance, no probe to bone noted. Ortho: No tenderness to palpation right 2nd digit. 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 - Neurological Exam Neurological Exam: Alert, Awake, Oriented x3 - Psychiatric Exam Psychiatric exam: Normal Affect, Normal Mood Assessment and Plan - Assessment and Plan (Free Text) Assessment: 76 year old male patient PMH [place] cell carcinoma with lung metastasis, left knee effusion with right 2nd digit plantar ulceration Plan: Patient seen and evaluated at bedside Discussed with attending, Dr. Treadwell Labs and vitals reviewed = afebrile Bacitracin applied to ulceration and right 2nd digit dressed with DSD Continue with local wound care Right foot wound culture final report - morg morganii ss morganii, staphylococcus aureus Continue abx per ID = Cefepime Podiatry will continue to follow patient while in house
--- NOTE | 2017-02-01 13:08 | CP.PCM.CON ---
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 Also developed A fib with RVR CT of chest showed Extensive pleural-based soft tissue throughout much of the left prudencio thorax and in the right apex, suspicious for neoplastic disease. Patient was found to have large effusion of his left knee , small purulent lesion to right hand index finger ,purulent wound to right foot second toe. He was diagnosed with neutropenic fever and sepsis , placed on reverse isolation and started on broad spectrum antibiotics, vanco and zosyn , given granix and transfusion. His cultures were reported all negative except wound cx from right foot second toe that came back positive for Morganella Morgani and staph He underwent left knee effusion I&D by ortho and cultures were sent. Pt transferred to TCU for continuation of IV antibiotics, Vanco and Zosyn empirically for septic arthritis at least 21 days. will hold off chemotherapy for duration of IV antibiotics. Review of Systems - Review of Systems All systems: reviewed and no additional remarkable complaints except - Constitutional Constitutional: As Per HPI - EENT Eyes: absent: As Per HPI, Blind Spots, Blurred Vision, Change in Vision, Decreased Night Vision, Diplopia, Discharge, Dry Eye, Exophthalmos, Floaters, Irritation, Itchy Eyes, Loss of Peripheral Vision, Pain, Photophobia, Requires Corrective Lenses, Sees Flashes, Spots in Vision, Tunnel Vision, Other Visual Disturbances, Loss of Vision, Other Ears: absent: As Per HPI, Decreased Hearing, Ear Discharge, Ear Pain, Tinnitus, Abnormal Hearing, Disequilibrium, Dizziness, Other Nose/Mouth/Throat: absent: As Per HPI, Epistaxis, Nasal Congestion, Nasal Discharge, Nasal Obstruction, Nasal Trauma, Nose Pain, Post Nasal Drip, Sinus Pain, Sinus Pressure, Bleeding Gums, Change in Voice, Dental Pain, Dry Mouth, Dysphagia, Halitosis, Hoarsness, Lip Swelling, Mouth Lesions, Mouth Pain, Odynophagia, Sore Throat, Throat Swelling, Tongue Swelling, Facial Pain, Neck Pain, Neck Mass, Other - Cardiovascular Cardiovascular: As Per HPI - Respiratory Respiratory: absent: As Per HPI, Cough, Dyspnea, Hemoptysis, Dyspnea on Exertion , Wheezing, Snoring, Stridor, Pain on Inspiration, Chest Congestion, Excessive Mucous Production, Change in Mucous Color, Pain with Coughing, Other - Gastrointestinal Gastrointestinal: absent: As Per HPI, Abdominal Pain, Belching, Bloating, Change in Bowel Habits, Change in Stool Character, Coffee Ground Emesis, Constipation, Cramping, Diarrhea, Dyspepsia, Dysphagia, Early Satiety, Excessive Flatus, Fecal Incontinence, Heartburn, Hematemesis, Hematochezia, Loose Stools, Melena, Nausea, Odynophagia, Temesmus, Vomiting, Other - Genitourinary Genitourinary: absent: As Per HPI, Change in Urinary Stream, Difficulty Urinating, Dysuria, Flank Pain, Hematuria, Pyuria, Nocturia, Urinary Incontinence, Urinary Frequency, Urinary Hesitance, Urinary Urgency, Voiding Freq/Small Amts, Freq UTI, Hx Renal/Bladder Calculi, Hx /Renal Surgery, Bladder Distension, Other - Musculoskeletal Musculoskeletal: As Per HPI - Integumentary Integumentary: As Per HPI - Neurological Neurological: absent: As Per HPI, Abnormal Gait, Abnormal Hearing, Abnormal Movements, Abnormal Speech, Behavioral Changes, Burning Sensations, Confusion, Convulsions, Disequilibrium, Dizziness, Numbness, Focal Weakness, Frequent Falls , Headaches, Lack of Coordination, Loss of Vision, Memory Loss, Paresthesias, Radicular Pain, Restless Legs, Sensory Deficit, Syncope, Tingling, Tremor, Vertigo, Weakness, Other Visual Disturbances, Other - Psychiatric Psychiatric: absent: As Per HPI, Abnormal Sleep Pattern, Anhedonia, Anxiety, Auditory Hallucinations, Behavioral Changes, Change in Appetite, Change in Libido, Confusion, Depression, Difficulty Concentrating, Hallucinations, Homicidal Ideation, Hopelessness, Irritability, Memory Loss, Mood Swings, Panic Attacks, Paranoia, Suicidal Ideation, Visual Hallucinations, Tactile Hallucinations, Other - Endocrine Endocrine: absent: As Per HPI, Change in Body Appearance, Change in Libido, Cold Intolorance, Deepening of Voice, Excessive Sweating, Fatigue, Flushing, Heat Intolorance, Increase in Ring/Shoe/Hat Size, Palpitations, Polydipsia, Polyphagia, Polyuria, Other - Hematologic/Lymphatic Hematologic: absent: As Per HPI, Easy Bleeding, Easy Bruising, Lymphadenopathy, Other Past Patient History - Infectious Disease Hx of Infectious Diseases: None - Tetanus Immunizations Tetanus Immunization: Unknown - Past Medical History & Family History Past Medical History?: Yes - Past Social History Smoking Status: Former Smoker - CARDIAC Hx Cardiac Disorders: Yes Hx Hypertension: Yes - PULMONARY Hx Respiratory Disorders: Yes Hx Lung Cancer: Yes - NEUROLOGICAL Hx Neurological Disorder: No - HEENT Hx HEENT Problems: Yes Other/Comment: Significant hearing loss. 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 - MUSCULOSKELETAL/RHEUMATOLOGICAL Hx Falls: Yes - GASTROINTESTINAL Hx Gastrointestinal Disorders: Yes Hx Gastritis: Yes - GENITOURINARY/GYNECOLOGICAL Hx Genitourinary Disorders: No - PSYCHIATRIC Hx Anxiety: Yes Hx Substance Use: No Other/Comment: Insomnia. - SURGICAL HISTORY Hx Arthroscopy: Yes (left knee) Hx Orthopedic Surgery: Yes (left knee replacement 11/03) Other/Comment: Excision of tumor on the scalp. Chest tube placement for pleural effusion followed by pleurodesis. right fourth toe amputation - ANESTHESIA Hx Anesthesia: Yes Hx Anesthesia Reactions: No Hx Malignant Hyperthermia: No Meds Allergies/Adverse Reactions: Allergies Allergy/AdvReac Type Severity Reaction Status Date / Time No Known Allergies Allergy Verified 01/30/17 15:30 - Medications Medications: Current Medications Acetaminophen (Tylenol 325mg Tab) 650 mg PO Q6 PRN PRN Reason: Fever >100.4 F Last Admin: 01/30/17 16:24 Dose: 650 mg Acetaminophen (Tylenol 325mg Tab) 650 mg PO Q6 PRN PRN Reason: Fever >100.4 F Al Hydrox/Mg Hydrox/Simethicone (Maalox Plus 30 Ml) 30 ml PO Q6 PRN PRN Reason: Indigestion / Heartburn Last Admin: 01/31/17 12:41 Dose: 30 ml Bacitracin (Bacitracin Oint) 1 applic TOP DAILY [facility] Last Admin: 02/01/17 09:48 Dose: 1 applic Benzocaine/Menthol (Cepacol Sore Throat) 1 lul PO Q3 PRN PRN Reason: Sore Throat Docusate Sodium (Colace) 100 mg PO BID PRN PRN Reason: Constipation Docusate Sodium (Colace) 100 mg PO BID [facility] Last Admin: 02/01/17 08:42 Dose: 100 mg Enoxaparin Sodium (Lovenox) 40 mg SC DAILY [facility] PRN Reason: Protocol Last Admin: 02/01/17 08:40 Dose: 40 mg Hydrochlorothiazide (Microzide) 12.5 mg PO DAILY [facility] Cefepime HCl 1 gm/ Sodium (Chloride) 100 mls @ 100 mls/hr IVPB Q12@0500,1700 [facility] PRN Reason: Protocol Last Admin: 02/01/17 06:01 Dose: 100 mls/hr Fluconazole (Diflucan Iv 200 Mg/100 Ml Ns) 100 mls @ 100 mls/hr IVPB DAILY [facility] Last Admin: 02/01/17 08:41 Dose: 100 mls/hr Metoprolol Tartrate (Lopressor) 25 mg PO Q12 [facility] Last Admin: 02/01/17 08:39 Dose: 25 mg Pantoprazole Sodium (Protonix Ec Tab) 40 mg PO DAILY [facility] Last Admin: 02/01/17 08:39 Dose: 40 mg Sodium Chloride ([place] Nasal [place]) 1 sprays [place] Q4 PRN PRN Reason: Nasal congestion Zolpidem Tartrate (Ambien) 5 mg PO HS PRN PRN Reason: Insomnia Last Admin: 01/31/17 21:23 Dose: 5 mg Physical Exam - Constitutional Appears: Non-toxic, Chronically Ill - Head Exam Head Exam: NORMOCEPHALIC - Eye Exam Eye Exam: PERRL. absent: Scleral icterus - ENT Exam ENT Exam: Mucous Membranes Dry - Neck Exam Neck exam: Negative for: Lymphadenopathy - Respiratory Exam Respiratory Exam: Decreased Breath Sounds - Cardiovascular Exam Cardiovascular Exam: REGULAR RHYTHM - GI/Abdominal Exam GI & Abdominal Exam: Diminished Bowel Sounds, Soft. absent: Tenderness - Rectal Exam Rectal Exam: Deferred - Exam Exam: NORMAL INSPECTION - Extremities Exam Extremities exam: Positive for: pedal edema, tenderness. Negative for: calf tenderness, pedal pulses present - Back Exam Back exam: absent: CVA tenderness (L), CVA tenderness (R) - Neurological Exam Neurological exam: Alert, CN II-XII Intact, Oriented x3, Reflexes Normal - Psychiatric Exam Psychiatric exam: Normal Mood - Skin Skin Exam: Dry Results - Vital Signs Recent Vital Signs: Last Vital Signs Temp 97.5 F L 02/01/17 08:13 Pulse 82 02/01/17 08:39 Resp 20 02/01/17 08:13 BP 135/75 02/01/17 08:39 Pulse Ox 99 02/01/17 08:13 - Labs Result Diagrams: 01/31/17 07:20 02/01/17 06:00 Labs: Laboratory Results - last 24 hr 02/01/17 06:00 Sodium 135 Potassium 3.2 L Chloride 99 Carbon Dioxide 27 Anion Gap 12 BUN 12 Creatinine 1.1 Est GFR ( Amer) > 60 Est GFR (Non-Af Amer) > 60 Random Glucose 96 Calcium 8.7 Magnesium 1.2 L Assessment & Plan (1) Cellulitis, leg Status: Acute (2) Immunocompromised state Status: Acute (3) Knee effusion, left Status: Acute (4) Pneumonia Status: Acute Priority: High (5) HTN (hypertension) Status: Chronic (6) [place] cell carcinoma Status: Chronic Priority: High - Assessment and Plan (Free Text) Assessment: cont rx for neutropenic fever, sepsis and septic arthritis left knee to complete total 21 days IV antibiotic rx
[2017-02-01] MEDS: Cefepime IV 1 gm in Dextrose 1 GM/50 ML BAG IVPB SCH (16:44)
[2017-02-02] MEDS: Cefepime IV 1 gm in Dextrose 1 GM/50 ML BAG IVPB SCH ×2 (05:25→17:07)
[2017-02-02 06:08] LABS: BLOOD UREA NITROGEN 12 mg/dl (9-20); CALCIUM 8.9 mg/dL (8.4-10.2); CARBON DIOXIDE 27 mmol/L (22-30); CHLORIDE 100 mmol/L (98-107); GFR AFRICAN-AMERICAN > 60; GLUCOSE,RANDOM 97 mg/dL (75-110); POTASSIUM 3.6 MMOL/L (3.6-5.0); SODIUM 136 mmol/l (132-148)
--- NOTE | 2017-02-02 06:44 | CP.PCM.PN ---
Subjective - Date & Time of Evaluation Date of Evaluation: 02/02/17 Time of Evaluation: 06:42 - Subjective Subjective: Podiatry Progress Note - Dr. Treadwell 76 year old male patient PMHx [place] cell carcinoma with lung metastasis, left knee effusion s/p L knee I&D,seen at bedside in TCU for right 2nd digit wound. Patient seen resting comfortably at time of visit. Patient denies any acute overnight events. Patient denies any pain to his right 2nd toe. Patient states in the pain in his left knee is decreasing, states he will begin to work with physical therapy today. Patient denies N/V/F/D/C/SOB/calf pain. Offers no other pedal complaints at this time. Objective - Vital Signs/Intake and Output Vital Signs (last 24 hours): Temp Pulse Resp BP Pulse Ox 97.7 F 85 20 142/78 94 L 02/01/17 20:04 02/01/17 20:56 02/01/17 20:04 02/01/17 20:04 02/01/17 20:04 - Medications Medications: Current Medications Acetaminophen (Tylenol 325mg Tab) 650 mg PO Q6 PRN PRN Reason: Fever >100.4 F Last Admin: 02/02/17 03:17 Dose: 650 mg Acetaminophen (Tylenol 325mg Tab) 650 mg PO Q6 PRN PRN Reason: Fever >100.4 F Al Hydrox/Mg Hydrox/Simethicone (Maalox Plus 30 Ml) 30 ml PO Q6 PRN PRN Reason: Indigestion / Heartburn Last Admin: 01/31/17 12:41 Dose: 30 ml Bacitracin (Bacitracin Oint) 1 applic TOP DAILY [facility] Last Admin: 02/01/17 09:48 Dose: 1 applic Benzocaine/Menthol (Cepacol Sore Throat) 1 lul PO Q3 PRN PRN Reason: Sore Throat Docusate Sodium (Colace) 100 mg PO BID PRN PRN Reason: Constipation Docusate Sodium (Colace) 100 mg PO BID [facility] Last Admin: 02/01/17 16:43 Dose: 100 mg Enoxaparin Sodium (Lovenox) 40 mg SC DAILY [facility] PRN Reason: Protocol Last Admin: 02/01/17 08:40 Dose: 40 mg Hydrochlorothiazide (Microzide) 12.5 mg PO DAILY [facility] Fluconazole (Diflucan Iv 200 Mg/100 Ml Ns) 100 mls @ 100 mls/hr IVPB DAILY [facility] Last Admin: 02/01/17 08:41 Dose: 100 mls/hr Cefepime HCl (Maxipime Iv 1 Gm Premix) 1 gm in 50 mls @ 50 mls/hr IVPB Q12@0500 ,1700 [facility] PRN Reason: Protocol Last Admin: 02/02/17 05:25 Dose: 50 mls/hr Metoprolol Tartrate (Lopressor) 25 mg PO Q12 [facility] Last Admin: 02/01/17 20:56 Dose: 25 mg Pantoprazole Sodium (Protonix Ec Tab) 40 mg PO DAILY [facility] Last Admin: 02/01/17 08:39 Dose: 40 mg Sodium Chloride ([place] Nasal [place]) 1 sprays [place] Q4 PRN PRN Reason: Nasal congestion Zolpidem Tartrate (Ambien) 5 mg PO HS PRN PRN Reason: Insomnia Last Admin: 02/01/17 20:56 Dose: 5 mg - Labs Labs: 01/31/17 07:20 02/02/17 05:40 - Constitutional Appears: Well, Non-toxic, No Acute Distress - Extremities Exam Additional comments: RLE focused physical exam: Vasc: DP and PT pulses palpable 2/4. CFT <3 seconds to all digits. Temperature gradient warm to warm. No edema noted. No increase in warmth right 2nd digit Neuro: Gross sensation slightly diminished. Derm: Ulceration measuring approximately 0.3 x 0.3 x 0.1 cm noted to plantar aspect of 2nd digit distal tuft - ulcer is noted to have a 100% granular base. No purulence or drainage noted. No malodor, no fluctuance, no probe to bone noted. Ortho: No tenderness to palpation right 2nd digit. 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 - Neurological Exam Neurological Exam: Alert, Awake, Oriented x3 - Psychiatric Exam Psychiatric exam: Normal Affect, Normal Mood Assessment and Plan - Assessment and Plan (Free Text) Assessment: 76 year old male patient PMH [place] cell carcinoma with lung metastasis, left knee effusion with right 2nd digit plantar ulceration Plan: Patient seen and evaluated at bedside Discussed with attending, Dr. Treadwell Labs and vitals reviewed = afebrile Bacitracin applied to ulceration and right 2nd digit dressed with DSD Continue with local wound care Right foot wound culture final report - morg morganii ss morganii, staphylococcus aureus Continue abx per ID = Cefepime Podiatry will continue to follow patient while in house
--- NOTE | 2017-02-02 07:47 | CP.PCM.PN ---
Subjective - Date & Time of Evaluation Date of Evaluation: 02/02/17 Time of Evaluation: 07:44 - Subjective Subjective: Follow up Dr. Del Angel Patient states that knee pain feels better. He says finger feels better also. No new complaints. Objective - Vital Signs/Intake and Output Vital Signs (last 24 hours): Temp Pulse Resp BP Pulse Ox 97.7 F 85 20 142/78 94 L 02/01/17 20:04 02/01/17 20:56 02/01/17 20:04 02/01/17 20:04 02/01/17 20:04 - Medications Medications: Current Medications Acetaminophen (Tylenol 325mg Tab) 650 mg PO Q6 PRN PRN Reason: Fever >100.4 F Last Admin: 02/02/17 03:17 Dose: 650 mg Acetaminophen (Tylenol 325mg Tab) 650 mg PO Q6 PRN PRN Reason: Fever >100.4 F Al Hydrox/Mg Hydrox/Simethicone (Maalox Plus 30 Ml) 30 ml PO Q6 PRN PRN Reason: Indigestion / Heartburn Last Admin: 01/31/17 12:41 Dose: 30 ml Bacitracin (Bacitracin Oint) 1 applic TOP DAILY [facility] Last Admin: 02/01/17 09:48 Dose: 1 applic Benzocaine/Menthol (Cepacol Sore Throat) 1 lul PO Q3 PRN PRN Reason: Sore Throat Docusate Sodium (Colace) 100 mg PO BID PRN PRN Reason: Constipation Docusate Sodium (Colace) 100 mg PO BID [facility] Last Admin: 02/01/17 16:43 Dose: 100 mg Enoxaparin Sodium (Lovenox) 40 mg SC DAILY [facility] PRN Reason: Protocol Last Admin: 02/01/17 08:40 Dose: 40 mg Hydrochlorothiazide (Microzide) 12.5 mg PO DAILY [facility] Fluconazole (Diflucan Iv 200 Mg/100 Ml Ns) 100 mls @ 100 mls/hr IVPB DAILY [facility] Last Admin: 02/01/17 08:41 Dose: 100 mls/hr Cefepime HCl (Maxipime Iv 1 Gm Premix) 1 gm in 50 mls @ 50 mls/hr IVPB Q12@0500 ,1700 [facility] PRN Reason: Protocol Last Admin: 02/02/17 05:25 Dose: 50 mls/hr Metoprolol Tartrate (Lopressor) 25 mg PO Q12 [facility] Last Admin: 02/01/17 20:56 Dose: 25 mg Pantoprazole Sodium (Protonix Ec Tab) 40 mg PO DAILY [facility] Last Admin: 02/01/17 08:39 Dose: 40 mg Sodium Chloride ([place] Nasal [place]) 1 sprays [place] Q4 PRN PRN Reason: Nasal congestion Zolpidem Tartrate (Ambien) 5 mg PO HS PRN PRN Reason: Insomnia Last Admin: 02/01/17 20:56 Dose: 5 mg - Labs Labs: 01/31/17 07:20 02/02/17 05:40 - Constitutional Appears: Well, No Acute Distress - Extremities Exam Additional comments: Left knee: improving ROM, small effusion, not warm. +DP/PT, calves soft NT neg homans, +DF/PF ankle Right index finger: skin dry, still adherent, left intact, no reaccumulation of collection - Skin Skin Exam: Dry, Intact, Normal Color, Warm Assessment and Plan (1) Knee effusion, left Assessment & Plan: POD# 4 s/p I&D will review cx with Dr. Del Angel ID f/u appreciated, 21 days IV abx cont lovenox for VTE proph Status: Acute
[2017-02-02 08:12] LABS: HEMATOCRIT 27.5 % (35.0-51.0); MEAN CELL VOLUME 76.5 fl (80.0-94.0); MEAN CORPUSCULAR HEMOGLOBIN 24.5 pg (27.0-31.0); MEAN CORPUSCULAR HGB CONC 32.1 g/dL (33.0-37.0); RED CELL DISTRIBUTION WIDTH 19.1 % (11.5-14.5); WHITE BLOOD COUNT 11.5 K/uL (4.8-10.8)
[2017-02-02] MEDS: Bacitracin OINT 15GM TOP SCH (08:19)
[2017-02-02] MEDS: Pantoprazole 40 mg EC Tab PO SCH (08:19)
[2017-02-02] MEDS: Enoxaparin 40 mg Syringe SC SCH (08:21)
[2017-02-02] MEDS: Fluconazole IV 200mg/100 ml NS 100 ML IVPB SCH (08:22)
--- NOTE | 2017-02-02 09:55 | CP.PCM.PN ---
Subjective - Date & Time of Evaluation Date of Evaluation: 02/02/17 Time of Evaluation: 09:51 - Subjective Subjective: Pt is afebrile feeling well, the only complaint being inability to sleep. Will give him 10 mg of ambien today So far all c/s are negative. Will check with Dr Rivera how mwny more days pt needs the antibiotics. Objective - Vital Signs/Intake and Output Vital Signs (last 24 hours): Temp Pulse Resp BP Pulse Ox 97.7 F 74 20 131/74 94 L 02/02/17 08:23 02/02/17 08:23 02/02/17 08:23 02/02/17 08:23 02/02/17 08:23 - Medications Medications: Current Medications Acetaminophen (Tylenol 325mg Tab) 650 mg PO Q6 PRN PRN Reason: Fever >100.4 F Last Admin: 02/02/17 03:17 Dose: 650 mg Acetaminophen (Tylenol 325mg Tab) 650 mg PO Q6 PRN PRN Reason: Fever >100.4 F Al Hydrox/Mg Hydrox/Simethicone (Maalox Plus 30 Ml) 30 ml PO Q6 PRN PRN Reason: Indigestion / Heartburn Last Admin: 01/31/17 12:41 Dose: 30 ml Bacitracin (Bacitracin Oint) 1 applic TOP DAILY [facility] Last Admin: 02/02/17 08:19 Dose: 1 applic Benzocaine/Menthol (Cepacol Sore Throat) 1 lul PO Q3 PRN PRN Reason: Sore Throat Docusate Sodium (Colace) 100 mg PO BID PRN PRN Reason: Constipation Docusate Sodium (Colace) 100 mg PO BID [facility] Last Admin: 02/02/17 08:19 Dose: 100 mg Enoxaparin Sodium (Lovenox) 40 mg SC DAILY [facility] PRN Reason: Protocol Last Admin: 02/02/17 08:21 Dose: 40 mg Hydrochlorothiazide (Microzide) 12.5 mg PO DAILY [facility] Last Admin: 02/02/17 08:19 Dose: 12.5 mg Fluconazole (Diflucan Iv 200 Mg/100 Ml Ns) 100 mls @ 100 mls/hr IVPB DAILY [facility] Last Admin: 02/02/17 08:22 Dose: 100 mls/hr Cefepime HCl (Maxipime Iv 1 Gm Premix) 1 gm in 50 mls @ 50 mls/hr IVPB Q12@0500 ,1700 [facility] PRN Reason: Protocol Last Admin: 02/02/17 05:25 Dose: 50 mls/hr Metoprolol Tartrate (Lopressor) 25 mg PO Q12 [facility] Last Admin: 02/02/17 08:19 Dose: 25 mg Pantoprazole Sodium (Protonix Ec Tab) 40 mg PO DAILY [facility] Last Admin: 02/02/17 08:19 Dose: 40 mg Sodium Chloride ([place] Nasal [place]) 1 sprays [place] Q4 PRN PRN Reason: Nasal congestion Zolpidem Tartrate (Ambien) 5 mg PO HS PRN PRN Reason: Insomnia Last Admin: 02/01/17 20:56 Dose: 5 mg - Labs Labs: 02/02/17 08:00 02/02/17 05:40
--- NOTE | 2017-02-02 10:59 | CP.PCM.PN ---
Subjective - Date & Time of Evaluation Date of Evaluation: 02/02/17 Time of Evaluation: 10:56 - Subjective Subjective: Doing well on current regimen. Has been afebrile for the last three days. Has completed one week + of antibiotics. Culture of finger grew enterococcus faecalis. WBC is 11.5 now. Had orthopedic intervention of left knee. Going to physical therapy this morning. Oncology note appreciated. Objective - Vital Signs/Intake and Output Vital Signs (last 24 hours): Temp Pulse Resp BP Pulse Ox 97.7 F 74 20 131/74 94 L 02/02/17 08:23 02/02/17 08:23 02/02/17 08:23 02/02/17 08:23 02/02/17 08:23 - Medications Medications: Current Medications Acetaminophen (Tylenol 325mg Tab) 650 mg PO Q6 PRN PRN Reason: Fever >100.4 F Last Admin: 02/02/17 03:17 Dose: 650 mg Acetaminophen (Tylenol 325mg Tab) 650 mg PO Q6 PRN PRN Reason: Fever >100.4 F Al Hydrox/Mg Hydrox/Simethicone (Maalox Plus 30 Ml) 30 ml PO Q6 PRN PRN Reason: Indigestion / Heartburn Last Admin: 01/31/17 12:41 Dose: 30 ml Bacitracin (Bacitracin Oint) 1 applic TOP DAILY [facility] Last Admin: 02/02/17 08:19 Dose: 1 applic Benzocaine/Menthol (Cepacol Sore Throat) 1 lul PO Q3 PRN PRN Reason: Sore Throat Docusate Sodium (Colace) 100 mg PO BID PRN PRN Reason: Constipation Docusate Sodium (Colace) 100 mg PO BID [facility] Last Admin: 02/02/17 08:19 Dose: 100 mg Enoxaparin Sodium (Lovenox) 40 mg SC DAILY [facility] PRN Reason: Protocol Last Admin: 02/02/17 08:21 Dose: 40 mg Hydrochlorothiazide (Microzide) 12.5 mg PO DAILY [facility] Last Admin: 02/02/17 08:19 Dose: 12.5 mg Fluconazole (Diflucan Iv 200 Mg/100 Ml Ns) 100 mls @ 100 mls/hr IVPB DAILY [facility] Last Admin: 02/02/17 08:22 Dose: 100 mls/hr Cefepime HCl (Maxipime Iv 1 Gm Premix) 1 gm in 50 mls @ 50 mls/hr IVPB Q12@0500 ,1700 [facility] PRN Reason: Protocol Last Admin: 02/02/17 05:25 Dose: 50 mls/hr Metoprolol Tartrate (Lopressor) 25 mg PO Q12 [facility] Last Admin: 02/02/17 08:19 Dose: 25 mg Pantoprazole Sodium (Protonix Ec Tab) 40 mg PO DAILY [facility] Last Admin: 02/02/17 08:19 Dose: 40 mg Sodium Chloride ([place] Nasal [place]) 1 sprays [place] Q4 PRN PRN Reason: Nasal congestion Zolpidem Tartrate (Ambien) 5 mg PO HS PRN PRN Reason: Insomnia Last Admin: 02/01/17 20:56 Dose: 5 mg - Labs Labs: 02/02/17 08:00 02/02/17 05:40
[2017-02-03] MEDS: Cefepime IV 1 gm in Dextrose 1 GM/50 ML BAG IVPB SCH ×2 (04:57→16:48)
--- NOTE | 2017-02-03 06:37 | CP.PCM.PN ---
Subjective - Date & Time of Evaluation Date of Evaluation: 02/03/17 Time of Evaluation: 06:31 - Subjective Subjective: Podiatry Progress Note - Dr. 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 Treadwell. Patient seen resting comfortably at time of visit and in NAD. Patient denies any acute overnight events. Patient denies any pain to his right 2nd toe. Patient states that he is feeling stronger; he worked with physical therapy yesterday and reports physical therapy is going well. Patient denies N/V/F/D/C/SOB/calf pain. Offers no other pedal complaints at this time. Objective - Vital Signs/Intake and Output Vital Signs (last 24 hours): Temp Pulse Resp BP Pulse Ox 98.2 F 88 20 140/76 95 02/02/17 20:29 02/02/17 21:00 02/02/17 20:29 02/02/17 21:00 02/02/17 20:29 - Medications Medications: Current Medications Acetaminophen (Tylenol 325mg Tab) 650 mg PO Q6 PRN PRN Reason: Fever >100.4 F Last Admin: 02/02/17 03:17 Dose: 650 mg Acetaminophen (Tylenol 325mg Tab) 650 mg PO Q6 PRN PRN Reason: Fever >100.4 F Al Hydrox/Mg Hydrox/Simethicone (Maalox Plus 30 Ml) 30 ml PO Q6 PRN PRN Reason: Indigestion / Heartburn Last Admin: 01/31/17 12:41 Dose: 30 ml Bacitracin (Bacitracin Oint) 1 applic TOP DAILY [facility] Last Admin: 02/02/17 08:19 Dose: 1 applic Benzocaine/Menthol (Cepacol Sore Throat) 1 lul PO Q3 PRN PRN Reason: Sore Throat Docusate Sodium (Colace) 100 mg PO BID PRN PRN Reason: Constipation Docusate Sodium (Colace) 100 mg PO BID [facility] Last Admin: 02/02/17 17:09 Dose: 100 mg Enoxaparin Sodium (Lovenox) 40 mg SC DAILY [facility] PRN Reason: Protocol Last Admin: 02/02/17 08:21 Dose: 40 mg Fluconazole (Diflucan) 200 mg PO DAILY [facility] Hydrochlorothiazide (Microzide) 12.5 mg PO DAILY [facility] Last Admin: 02/02/17 08:19 Dose: 12.5 mg Fluconazole (Diflucan Iv 200 Mg/100 Ml Ns) 100 mls @ 100 mls/hr IVPB DAILY [facility] Stop: 02/03/17 06:59 Last Admin: 02/02/17 08:22 Dose: 100 mls/hr Cefepime HCl (Maxipime Iv 1 Gm Premix) 1 gm in 50 mls @ 50 mls/hr IVPB Q12@0500 ,1700 [facility] PRN Reason: Protocol Last Admin: 02/03/17 04:57 Dose: 50 mls/hr Metoprolol Tartrate (Lopressor) 25 mg PO Q12 [facility] Last Admin: 02/02/17 21:00 Dose: 25 mg Pantoprazole Sodium (Protonix Ec Tab) 40 mg PO DAILY [facility] Last Admin: 02/02/17 08:19 Dose: 40 mg Sodium Chloride ([place] Nasal [place]) 1 sprays [place] Q4 PRN PRN Reason: Nasal congestion Zolpidem Tartrate (Ambien) 5 mg PO HS PRN PRN Reason: Insomnia Last Admin: 02/02/17 22:03 Dose: 5 mg - Labs Labs: 02/02/17 08:00 02/02/17 05:40 - Constitutional Appears: Well, Non-toxic, No Acute Distress - Extremities Exam Additional comments: RLE focused physical exam: Vasc: DP and PT pulses palpable 2/4. CFT <3 seconds to all digits. Temperature gradient warm to warm. No edema noted. No increase in warmth right 2nd digit Neuro: Gross sensation slightly diminished. Derm: Ulceration measuring approximately 0.3 x 0.3 x 0.1 cm noted to plantar aspect of 2nd digit distal tuft - ulcer is noted to have a 100% granular base. No purulence or drainage noted. No malodor, no fluctuance, no probe to bone noted. Ortho: No tenderness to palpation right 2nd digit. 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 Treadwell Labs and vitals reviewed = afebrile, WBC trending down (WBC=11.5) Ulceration cleansed with saline, bacitracin applied to ulceration and right 2nd digit dressed with DSD and marc Continue with local wound care Right foot wound culture final report - morg morganii ss morganii, staphylococcus aureus Continue abx per ID = Cefepime Podiatry will continue to follow patient while in house Patient is stable per podiatry Will followup with Dr. Treadwell within 1 week upon discharge
--- NOTE | 2017-02-03 08:00 | CP.PCM.PN ---
Subjective - Date & Time of Evaluation Date of Evaluation: 02/03/17 Time of Evaluation: 07:57 - Subjective Subjective: Patient states his knee feels better, but he does have pain wihen he walks. NO new complaints. finger improved, advised patient not to pick at skin and to let skin under wound heal. Objective - Vital Signs/Intake and Output Vital Signs (last 24 hours): Temp Pulse Resp BP Pulse Ox 98.2 F 88 20 140/76 95 02/02/17 20:29 02/02/17 21:00 02/02/17 20:29 02/02/17 21:00 02/02/17 20:29 - Medications Medications: Current Medications Acetaminophen (Tylenol 325mg Tab) 650 mg PO Q6 PRN PRN Reason: Fever >100.4 F Last Admin: 02/02/17 03:17 Dose: 650 mg Acetaminophen (Tylenol 325mg Tab) 650 mg PO Q6 PRN PRN Reason: Fever >100.4 F Al Hydrox/Mg Hydrox/Simethicone (Maalox Plus 30 Ml) 30 ml PO Q6 PRN PRN Reason: Indigestion / Heartburn Last Admin: 01/31/17 12:41 Dose: 30 ml Bacitracin (Bacitracin Oint) 1 applic TOP DAILY [facility] Last Admin: 02/02/17 08:19 Dose: 1 applic Benzocaine/Menthol (Cepacol Sore Throat) 1 lul PO Q3 PRN PRN Reason: Sore Throat Docusate Sodium (Colace) 100 mg PO BID PRN PRN Reason: Constipation Docusate Sodium (Colace) 100 mg PO BID [facility] Last Admin: 02/02/17 17:09 Dose: 100 mg Enoxaparin Sodium (Lovenox) 40 mg SC DAILY [facility] PRN Reason: Protocol Last Admin: 02/02/17 08:21 Dose: 40 mg Fluconazole (Diflucan) 200 mg PO DAILY [facility] Hydrochlorothiazide (Microzide) 12.5 mg PO DAILY [facility] Last Admin: 02/02/17 08:19 Dose: 12.5 mg Cefepime HCl (Maxipime Iv 1 Gm Premix) 1 gm in 50 mls @ 50 mls/hr IVPB Q12@0500 ,1700 [facility] PRN Reason: Protocol Last Admin: 02/03/17 04:57 Dose: 50 mls/hr Metoprolol Tartrate (Lopressor) 25 mg PO Q12 [facility] Last Admin: 02/02/17 21:00 Dose: 25 mg Pantoprazole Sodium (Protonix Ec Tab) 40 mg PO DAILY [facility] Last Admin: 02/02/17 08:19 Dose: 40 mg Sodium Chloride ([place] Nasal [place]) 1 sprays [place] Q4 PRN PRN Reason: Nasal congestion Zolpidem Tartrate (Ambien) 5 mg PO HS PRN PRN Reason: Insomnia Last Admin: 02/02/17 22:03 Dose: 5 mg - Labs Labs: 02/02/17 08:00 02/02/17 05:40 - Extremities Exam Additional comments: Left knee: no change. No drainage. No erythema. calves soft NT neg homans AROM stable RIght index finger, no fluctuance dry skin, no erythema Assessment and Plan (1) Knee effusion, left Assessment & Plan: cultures reviewed d/w DR. Deshpande cont IV abc Status: Acute
[2017-02-03] MEDS: Bacitracin OINT 15GM TOP SCH (08:21)
[2017-02-03] MEDS: Pantoprazole 40 mg EC Tab PO SCH (08:22)
[2017-02-03] MEDS: Enoxaparin 40 mg Syringe SC SCH (08:22)
--- NOTE | 2017-02-03 17:58 | CP.PCM.PN ---
Subjective - Date & Time of Evaluation Date of Evaluation: 02/03/17 Time of Evaluation: 11:20 - Subjective Subjective: Pt seen and examined. Complained of bearable pain on right knee. Objective - Vital Signs/Intake and Output Vital Signs (last 24 hours): Temp Pulse Resp BP Pulse Ox 97.5 F L 80 20 139/81 97 02/03/17 08:08 02/03/17 08:22 02/03/17 08:08 02/03/17 08:22 02/03/17 08:08 - Medications Medications: Current Medications Acetaminophen (Tylenol 325mg Tab) 650 mg PO Q6 PRN PRN Reason: Fever >100.4 F Last Admin: 02/02/17 03:17 Dose: 650 mg Acetaminophen (Tylenol 325mg Tab) 650 mg PO Q6 PRN PRN Reason: Fever >100.4 F Al Hydrox/Mg Hydrox/Simethicone (Maalox Plus 30 Ml) 30 ml PO Q6 PRN PRN Reason: Indigestion / Heartburn Last Admin: 01/31/17 12:41 Dose: 30 ml Bacitracin (Bacitracin Oint) 1 applic TOP DAILY [facility] Last Admin: 02/03/17 08:21 Dose: 1 applic Benzocaine/Menthol (Cepacol Sore Throat) 1 lul PO Q3 PRN PRN Reason: Sore Throat Docusate Sodium (Colace) 100 mg PO BID PRN PRN Reason: Constipation Docusate Sodium (Colace) 100 mg PO BID [facility] Last Admin: 02/03/17 16:49 Dose: 100 mg Fluconazole (Diflucan) 200 mg PO DAILY [facility] Last Admin: 02/03/17 08:22 Dose: 200 mg Hydrochlorothiazide (Microzide) 12.5 mg PO DAILY [facility] Last Admin: 02/03/17 08:22 Dose: 12.5 mg Cefepime HCl (Maxipime Iv 1 Gm Premix) 1 gm in 50 mls @ 50 mls/hr IVPB Q12@0500 ,1700 [facility] PRN Reason: Protocol Last Admin: 02/03/17 16:48 Dose: 50 mls/hr Metoprolol Tartrate (Lopressor) 25 mg PO Q12 [facility] Last Admin: 02/03/17 08:22 Dose: 25 mg Pantoprazole Sodium (Protonix Ec Tab) 40 mg PO DAILY [facility] Last Admin: 02/03/17 08:22 Dose: 40 mg Sodium Chloride ([place] Nasal [place]) 1 sprays [place] Q4 PRN PRN Reason: Nasal congestion Tramadol HCl (Ultram) 50 mg PO Q4 PRN PRN Reason: Pain, moderate (4-7) Last Admin: 02/03/17 10:25 Dose: 50 mg Zolpidem Tartrate (Ambien) 10 mg PO HS PRN PRN Reason: Insomnia - Labs Labs: 02/02/17 08:00 02/02/17 05:40 - Constitutional Appears: No Acute Distress - Head Exam Head Exam: ATRAUMATIC - Eye Exam Eye Exam: absent: Scleral icterus - ENT Exam ENT Exam: Mucous Membranes Moist - Neck Exam Neck Exam: absent: Meningismus - Respiratory Exam Respiratory Exam: absent: Rhonchi, Wheezes, Respiratory Distress - Cardiovascular Exam Cardiovascular Exam: REGULAR RHYTHM, +S1, +S2 - GI/Abdominal Exam GI & Abdominal Exam: Soft. 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 He was put On IV Vanco and Zosyn and had I&D of the effusion of the left knee. He was transferred to TCU for continuation of IV antibiotics for a total of at least 21 days. 1.Sepsis resolved 2.Neutropenic fever resolved 3. Question of Pneumonia CT of chest : no acute infiltrate however noted multiple pulm nodules and pleural based soft tissue mass continue IV Zosyn and Vanco Blood c/s: negative, Dr Rodriguez on board Mycoplasma ag IG + however , IgM pending Strep ag negative 4. Atrial Fibrillation rate controlled continue Metoprolol 5. Pancytopenia secondary to chemotherapy Neutropenia resolved with [facility] - Dr Donny Logan on consult 6. Metastatic Raúl Carcinoma Oncology on consult chemo on hold during IV antibiotics 7. Left knee effusion/ suspected septic arthritis Ortho consult : Dr Del Angel Had I&D Cultures were sent on IV Zosyn and vanco for at least 21 days as per ID 8.Hypertension, chronic BP stable cont Metoprolol 9. DVT prophylaxis on Lovenox
[2017-02-04] MEDS: Cefepime IV 1 gm in Dextrose 1 GM/50 ML BAG IVPB SCH (05:33)
--- NOTE | 2017-02-04 06:30 | CP.PCM.PN ---
Subjective - Date & Time of Evaluation Date of Evaluation: 02/04/17 Time of Evaluation: 06:28 - Subjective Subjective: Podiatry Progress Note - Dr. Treadwell 76 year old male patient PMHx [place] cell carcinoma with lung metastasis, left knee effusion s/p L knee I&D,seen at bedside in TCU for right 2nd digit wound. Patient was seen sleeping at the time of visitation. Patient denies any acute overnight events. Patient denies any pain to his right 2nd toe. Patient states he is feeling sore from physical therapy but feels like he is getting better. Patient denies N/V/F/D/C/SOB/calf pain. Offers no other pedal complaints at this time. Objective - Vital Signs/Intake and Output Vital Signs (last 24 hours): Temp Pulse Resp BP Pulse Ox 98.4 F 86 20 130/76 96 02/03/17 20:38 02/03/17 21:17 02/03/17 20:38 02/03/17 21:17 02/03/17 20:38 - Medications Medications: Current Medications Acetaminophen (Tylenol 325mg Tab) 650 mg PO Q6 PRN PRN Reason: Fever >100.4 F Last Admin: 02/02/17 03:17 Dose: 650 mg Acetaminophen (Tylenol 325mg Tab) 650 mg PO Q6 PRN PRN Reason: Fever >100.4 F Al Hydrox/Mg Hydrox/Simethicone (Maalox Plus 30 Ml) 30 ml PO Q6 PRN PRN Reason: Indigestion / Heartburn Last Admin: 01/31/17 12:41 Dose: 30 ml Bacitracin (Bacitracin Oint) 1 applic TOP DAILY [facility] Last Admin: 02/03/17 08:21 Dose: 1 applic Benzocaine/Menthol (Cepacol Sore Throat) 1 lul PO Q3 PRN PRN Reason: Sore Throat Docusate Sodium (Colace) 100 mg PO BID PRN PRN Reason: Constipation Docusate Sodium (Colace) 100 mg PO BID [facility] Last Admin: 02/03/17 16:49 Dose: 100 mg Fluconazole (Diflucan) 200 mg PO DAILY [facility] Last Admin: 02/03/17 08:22 Dose: 200 mg Hydrochlorothiazide (Microzide) 12.5 mg PO DAILY [facility] Last Admin: 02/03/17 08:22 Dose: 12.5 mg Cefepime HCl (Maxipime Iv 1 Gm Premix) 1 gm in 50 mls @ 50 mls/hr IVPB Q12@0500 ,1700 [facility] PRN Reason: Protocol Last Admin: 02/04/17 05:33 Dose: 50 mls/hr Metoprolol Tartrate (Lopressor) 25 mg PO Q12 [facility] Last Admin: 02/03/17 21:17 Dose: 25 mg Pantoprazole Sodium (Protonix Ec Tab) 40 mg PO DAILY [facility] Last Admin: 02/03/17 08:22 Dose: 40 mg Sodium Chloride ([place] Nasal [place]) 1 sprays [place] Q4 PRN PRN Reason: Nasal congestion Tramadol HCl (Ultram) 50 mg PO Q4 PRN PRN Reason: Pain, moderate (4-7) Last Admin: 02/03/17 10:25 Dose: 50 mg Zolpidem Tartrate (Ambien) 10 mg PO HS PRN PRN Reason: Insomnia Last Admin: 02/03/17 21:18 Dose: 10 mg - Labs Labs: 02/02/17 08:00 02/02/17 05:40 - Constitutional Appears: Well, Non-toxic, No Acute Distress - Extremities Exam Additional comments: RLE focused physical exam: Vasc: DP and PT pulses palpable 2/4. CFT <3 seconds to all digits. Temperature gradient warm to warm. No edema noted. No increase in warmth right 2nd digit Neuro: Gross sensation slightly diminished. Derm: Ulceration measuring approximately 0.3 x 0.3 x 0.1 cm noted to plantar aspect of 2nd digit distal tuft - ulcer is noted to have a 100% granular base. No purulence or drainage noted. No malodor, no fluctuance, no probe to bone noted. Ortho: No tenderness to palpation right 2nd digit. 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 Lipkin Ulceration cleansed with saline, bacitracin applied to ulceration and right 2nd digit dressed with DSD and marc Continue with local wound care Right foot wound culture final report - morg morganii ss morganii, staphylococcus aureus Continue abx per ID = Cefepime Podiatry will continue to follow patient while in house Patient is stable per podiatry Will followup with Dr. Treadwell within 1 week upon discharge
--- NOTE | 2017-02-04 07:19 | CP.PCM.PN ---
Subjective - Date & Time of Evaluation Date of Evaluation: 02/04/17 Time of Evaluation: 07:18 - Subjective Subjective: Ortho f/u Dr. Del Angel Patient states his knee feels the same, complains of pain after pT. No new complaints. Objective - Vital Signs/Intake and Output Vital Signs (last 24 hours): Temp Pulse Resp BP Pulse Ox 98.4 F 86 20 130/76 96 02/03/17 20:38 02/03/17 21:17 02/03/17 20:38 02/03/17 21:17 02/03/17 20:38 - Medications Medications: Current Medications Acetaminophen (Tylenol 325mg Tab) 650 mg PO Q6 PRN PRN Reason: Fever >100.4 F Last Admin: 02/02/17 03:17 Dose: 650 mg Acetaminophen (Tylenol 325mg Tab) 650 mg PO Q6 PRN PRN Reason: Fever >100.4 F Al Hydrox/Mg Hydrox/Simethicone (Maalox Plus 30 Ml) 30 ml PO Q6 PRN PRN Reason: Indigestion / Heartburn Last Admin: 01/31/17 12:41 Dose: 30 ml Bacitracin (Bacitracin Oint) 1 applic TOP DAILY [facility] Last Admin: 02/03/17 08:21 Dose: 1 applic Benzocaine/Menthol (Cepacol Sore Throat) 1 lul PO Q3 PRN PRN Reason: Sore Throat Docusate Sodium (Colace) 100 mg PO BID PRN PRN Reason: Constipation Docusate Sodium (Colace) 100 mg PO BID [facility] Last Admin: 02/03/17 16:49 Dose: 100 mg Fluconazole (Diflucan) 200 mg PO DAILY [facility] Last Admin: 02/03/17 08:22 Dose: 200 mg Hydrochlorothiazide (Microzide) 12.5 mg PO DAILY [facility] Last Admin: 02/03/17 08:22 Dose: 12.5 mg Cefepime HCl (Maxipime Iv 1 Gm Premix) 1 gm in 50 mls @ 50 mls/hr IVPB Q12@0500 ,1700 [facility] PRN Reason: Protocol Last Admin: 02/04/17 05:33 Dose: 50 mls/hr Metoprolol Tartrate (Lopressor) 25 mg PO Q12 [facility] Last Admin: 02/03/17 21:17 Dose: 25 mg Pantoprazole Sodium (Protonix Ec Tab) 40 mg PO DAILY [facility] Last Admin: 02/03/17 08:22 Dose: 40 mg Sodium Chloride ([place] Nasal [place]) 1 sprays [place] Q4 PRN PRN Reason: Nasal congestion Tramadol HCl (Ultram) 50 mg PO Q4 PRN PRN Reason: Pain, moderate (4-7) Last Admin: 02/03/17 10:25 Dose: 50 mg Zolpidem Tartrate (Ambien) 10 mg PO HS PRN PRN Reason: Insomnia Last Admin: 02/03/17 21:18 Dose: 10 mg - Labs Labs: 02/02/17 08:00 02/02/17 05:40 - Extremities Exam Additional comments: Left knee: no change in effusion, mildly warm, no erythema, incision sites dry, skin otherwise intact calves soft NT neg hoamns +DP/PT pulses +ROM ankle/toes able to flex knee actively to 70 degrees then complains of pain Assessment and Plan (1) Knee effusion, left Assessment & Plan: reviewed with Dr. Del Angel noted 3 of cx + MSSA patient will need minimum of 6 weeks IV antibiotics will need PICC line Patient to f/u with Dr. Del Angel 2 weeks after d/c darleen to left knee, incisions dry, no wound care needed at this time Status: Acute
[2017-02-04] MEDS: Bacitracin OINT 15GM TOP SCH (08:22)
[2017-02-04] MEDS: Pantoprazole 40 mg EC Tab PO SCH (08:23)
--- NOTE | 2017-02-04 08:44 | CP.PCM.PN ---
Subjective - Date & Time of Evaluation Date of Evaluation: 02/04/17 Time of Evaluation: 08:39 - Subjective Subjective: Pt is doing fairly well with the physical therapy, but his main complaint s that he is unable to sleep. The dose of ambien was increased to 10 mg, but he still only got 3-4 hrs sleep. Will add benadryl today. Awaiting word from Dr Rivera to see how many more days he should get the antibiotics before he is ready fore chemotherapy Objective - Vital Signs/Intake and Output Vital Signs (last 24 hours): Temp Pulse Resp BP Pulse Ox 98.1 F 85 20 138/67 99 02/04/17 08:11 02/04/17 08:22 02/04/17 08:11 02/04/17 08:22 02/04/17 08:11 - Medications Medications: Current Medications Acetaminophen (Tylenol 325mg Tab) 650 mg PO Q6 PRN PRN Reason: Fever >100.4 F Last Admin: 02/02/17 03:17 Dose: 650 mg Acetaminophen (Tylenol 325mg Tab) 650 mg PO Q6 PRN PRN Reason: Fever >100.4 F Al Hydrox/Mg Hydrox/Simethicone (Maalox Plus 30 Ml) 30 ml PO Q6 PRN PRN Reason: Indigestion / Heartburn Last Admin: 01/31/17 12:41 Dose: 30 ml Bacitracin (Bacitracin Oint) 1 applic TOP DAILY [facility] Last Admin: 02/04/17 08:22 Dose: 1 applic Benzocaine/Menthol (Cepacol Sore Throat) 1 lul PO Q3 PRN PRN Reason: Sore Throat Docusate Sodium (Colace) 100 mg PO BID PRN PRN Reason: Constipation Docusate Sodium (Colace) 100 mg PO BID [facility] Last Admin: 02/04/17 08:22 Dose: 100 mg Fluconazole (Diflucan) 200 mg PO DAILY [facility] Last Admin: 02/04/17 08:22 Dose: 200 mg Hydrochlorothiazide (Microzide) 12.5 mg PO DAILY [facility] Last Admin: 02/04/17 08:23 Dose: 12.5 mg Cefepime HCl (Maxipime Iv 1 Gm Premix) 1 gm in 50 mls @ 50 mls/hr IVPB Q12@0500 ,1700 [facility] PRN Reason: Protocol Last Admin: 02/04/17 05:33 Dose: 50 mls/hr Metoprolol Tartrate (Lopressor) 25 mg PO Q12 [facility] Last Admin: 02/04/17 08:22 Dose: 25 mg Pantoprazole Sodium (Protonix Ec Tab) 40 mg PO DAILY [facility] Last Admin: 02/04/17 08:23 Dose: 40 mg Sodium Chloride ([place] Nasal [place]) 1 sprays [place] Q4 PRN PRN Reason: Nasal congestion Tramadol HCl (Ultram) 50 mg PO Q4 PRN PRN Reason: Pain, moderate (4-7) Last Admin: 02/04/17 08:21 Dose: 50 mg Zolpidem Tartrate (Ambien) 10 mg PO HS PRN PRN Reason: Insomnia Last Admin: 02/03/17 21:18 Dose: 10 mg - Labs Labs: 02/02/17 08:00 02/02/17 05:40
--- NOTE | 2017-02-04 13:21 | CP.PCM.PN ---
Subjective - Date & Time of Evaluation Date of Evaluation: 02/04/17 Time of Evaluation: 08:00 - Subjective Subjective: recent events noted improving slowly IV rx in progress cultures from joint effusion + for MSSA x3 Objective - Vital Signs/Intake and Output Vital Signs (last 24 hours): Temp Pulse Resp BP Pulse Ox 98.1 F 85 20 138/67 99 02/04/17 08:11 02/04/17 08:22 02/04/17 08:11 02/04/17 08:22 02/04/17 08:11 - Medications Medications: Current Medications Acetaminophen (Tylenol 325mg Tab) 650 mg PO Q6 PRN PRN Reason: Fever >100.4 F Last Admin: 02/02/17 03:17 Dose: 650 mg Acetaminophen (Tylenol 325mg Tab) 650 mg PO Q6 PRN PRN Reason: Fever >100.4 F Al Hydrox/Mg Hydrox/Simethicone (Maalox Plus 30 Ml) 30 ml PO Q6 PRN PRN Reason: Indigestion / Heartburn Last Admin: 01/31/17 12:41 Dose: 30 ml Bacitracin (Bacitracin Oint) 1 applic TOP DAILY [facility] Last Admin: 02/04/17 08:22 Dose: 1 applic Benzocaine/Menthol (Cepacol Sore Throat) 1 lul PO Q3 PRN PRN Reason: Sore Throat Diphenhydramine HCl (Benadryl) 25 mg PO HS [facility] Docusate Sodium (Colace) 100 mg PO BID PRN PRN Reason: Constipation Docusate Sodium (Colace) 100 mg PO BID [facility] Last Admin: 02/04/17 08:22 Dose: 100 mg Enoxaparin Sodium (Lovenox) 40 mg SC DAILY [facility] PRN Reason: Protocol Fluconazole (Diflucan) 200 mg PO DAILY [facility] Last Admin: 02/04/17 08:22 Dose: 200 mg Hydrochlorothiazide (Microzide) 12.5 mg PO DAILY [facility] Last Admin: 02/04/17 08:23 Dose: 12.5 mg Cefepime HCl (Maxipime Iv 1 Gm Premix) 1 gm in 50 mls @ 50 mls/hr IVPB Q12@0500 ,1700 [facility] PRN Reason: Protocol Last Admin: 02/04/17 05:33 Dose: 50 mls/hr Metoprolol Tartrate (Lopressor) 25 mg PO Q12 [facility] Last Admin: 02/04/17 08:22 Dose: 25 mg Ondansetron HCl (Zofran Inj) 4 mg IVP Q6 PRN PRN Reason: Nausea/Vomiting Last Admin: 02/04/17 09:57 Dose: 4 mg Pantoprazole Sodium (Protonix Ec Tab) 40 mg PO DAILY [facility] Last Admin: 02/04/17 08:23 Dose: 40 mg Sodium Chloride ([place] Nasal [place]) 1 sprays [place] Q4 PRN PRN Reason: Nasal congestion Tramadol HCl (Ultram) 50 mg PO Q4 PRN PRN Reason: Pain, moderate (4-7) Last Admin: 02/04/17 08:21 Dose: 50 mg Zolpidem Tartrate (Ambien) 10 mg PO HS PRN PRN Reason: Insomnia Last Admin: 02/03/17 21:18 Dose: 10 mg - Labs Labs: 02/02/17 08:00 02/02/17 05:40 - Constitutional Appears: Non-toxic, Chronically Ill - Head Exam Head Exam: NORMOCEPHALIC - Eye Exam Eye Exam: PERRL. absent: Scleral icterus - ENT Exam ENT Exam: Mucous Membranes Dry - Neck Exam Neck Exam: absent: Lymphadenopathy, Thyromegaly - Respiratory Exam Respiratory Exam: Decreased Breath Sounds - Cardiovascular Exam Cardiovascular Exam: REGULAR RHYTHM, +S1, +S2 - GI/Abdominal Exam GI & Abdominal Exam: Distended, Soft. absent: Tenderness - Rectal Exam Rectal Exam: Deferred - Exam Exam: NORMAL INSPECTION - Extremities Exam Extremities Exam: Tenderness. absent: Calf Tenderness Additional comments: + tenderness warmth left knee - Back Exam Back Exam: absent: CVA tenderness (L), CVA tenderness (R) - Neurological Exam Neurological Exam: Alert, Awake, Oriented x3 - Psychiatric Exam Psychiatric exam: Depressed - Skin Skin Exam: Dry Assessment and Plan (1) Cellulitis, leg Status: Acute (2) Immunocompromised state Status: Acute (3) Knee effusion, left Status: Acute (4) Pneumonia Status: Acute (5) HTN (hypertension) Status: Chronic (6) [place] cell carcinoma Status: Chronic (7) Septic arthritis Status: Acute - Assessment and Plan (Free Text) Assessment: cont iv antibiotics for 6- 8 wks follow CRP/ sed rate Chemo to cont as per dr Logan
--- NOTE | 2017-02-04 14:35 | CP.PCM.PN ---
Subjective - Date & Time of Evaluation Date of Evaluation: 02/04/17 Time of Evaluation: 14:34 - Subjective Subjective: The patient was seen earlier in the day on rounds. He appeared comfortable and was asleep at the time. The case was discussed with oncology. Medical therapy and physical therapy will remain unchanged. Objective - Vital Signs/Intake and Output Vital Signs (last 24 hours): Temp Pulse Resp BP Pulse Ox 98.1 F 85 20 138/67 99 02/04/17 08:11 02/04/17 08:22 02/04/17 08:11 02/04/17 08:22 02/04/17 08:11 - Medications Medications: Current Medications Acetaminophen (Tylenol 325mg Tab) 650 mg PO Q6 PRN PRN Reason: Fever >100.4 F Last Admin: 02/02/17 03:17 Dose: 650 mg Acetaminophen (Tylenol 325mg Tab) 650 mg PO Q6 PRN PRN Reason: Fever >100.4 F Al Hydrox/Mg Hydrox/Simethicone (Maalox Plus 30 Ml) 30 ml PO Q6 PRN PRN Reason: Indigestion / Heartburn Last Admin: 01/31/17 12:41 Dose: 30 ml Bacitracin (Bacitracin Oint) 1 applic TOP DAILY [facility] Last Admin: 02/04/17 08:22 Dose: 1 applic Benzocaine/Menthol (Cepacol Sore Throat) 1 lul PO Q3 PRN PRN Reason: Sore Throat Diphenhydramine HCl (Benadryl) 25 mg PO HS [facility] Docusate Sodium (Colace) 100 mg PO BID PRN PRN Reason: Constipation Docusate Sodium (Colace) 100 mg PO BID [facility] Last Admin: 02/04/17 08:22 Dose: 100 mg Enoxaparin Sodium (Lovenox) 40 mg SC DAILY [facility] PRN Reason: Protocol Fluconazole (Diflucan) 200 mg PO DAILY [facility] Last Admin: 02/04/17 08:22 Dose: 200 mg Hydrochlorothiazide (Microzide) 12.5 mg PO DAILY [facility] Last Admin: 02/04/17 08:23 Dose: 12.5 mg Nafcillin Sodium 2 gm/ Sodium (Chloride) 100 mls @ 100 mls/hr IVPB 0600,1200, 1800,0000 [facility] PRN Reason: Protocol Metoprolol Tartrate (Lopressor) 25 mg PO Q12 [facility] Last Admin: 02/04/17 08:22 Dose: 25 mg Ondansetron HCl (Zofran Inj) 4 mg IVP Q6 PRN PRN Reason: Nausea/Vomiting Last Admin: 02/04/17 09:57 Dose: 4 mg Pantoprazole Sodium (Protonix Ec Tab) 40 mg PO DAILY [facility] Last Admin: 02/04/17 08:23 Dose: 40 mg Sodium Chloride ([place] Nasal [place]) 1 sprays [place] Q4 PRN PRN Reason: Nasal congestion Tramadol HCl (Ultram) 50 mg PO Q4 PRN PRN Reason: Pain, moderate (4-7) Last Admin: 02/04/17 08:21 Dose: 50 mg Zolpidem Tartrate (Ambien) 10 mg PO HS PRN PRN Reason: Insomnia Last Admin: 02/03/17 21:18 Dose: 10 mg - Labs Labs: 02/02/17 08:00 02/02/17 05:40
[2017-02-04] MEDS: Nafcillin 2 GM in Sodium Chloride 0.9% 100 ML IVPB SCH (17:05)
[2017-02-04] MEDS ORDERED: Lidocaine 2% Jelly (Uro-Jet) TOP PRN (20:17)
[2017-02-04] MEDS ORDERED: Lidocaine 2.5% OINTMENT TOP PRN (20:45)
[2017-02-04] MEDS ORDERED: Lidocaine 2% GEL TOP PRN (21:00)
[2017-02-05] MEDS: Nafcillin 2 GM in Sodium Chloride 0.9% 100 ML IVPB SCH ×4 (00:51→17:02)
--- NOTE | 2017-02-05 07:15 | CP.PCM.PN ---
Subjective - Date & Time of Evaluation Date of Evaluation: 02/05/17 Time of Evaluation: 07:14 - Subjective Subjective: Podiatry Progress Note - Dr. 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 Patient was seen sleeping at the time of visitation. Patient denies any acute overnight events. Patient denies any pain to his right 2nd toe. Patient denies N /V/F/D/C/SOB/calf pain. Offers no other pedal complaints at this time. Objective - Vital Signs/Intake and Output Vital Signs (last 24 hours): Temp Pulse Resp BP Pulse Ox 98.1 F 84 20 129/61 99 02/04/17 21:45 02/04/17 21:45 02/04/17 21:45 02/04/17 21:45 02/04/17 21:45 - Medications Medications: Current Medications Acetaminophen (Tylenol 325mg Tab) 650 mg PO Q6 PRN PRN Reason: Fever >100.4 F Last Admin: 02/02/17 03:17 Dose: 650 mg Acetaminophen (Tylenol 325mg Tab) 650 mg PO Q6 PRN PRN Reason: Fever >100.4 F Al Hydrox/Mg Hydrox/Simethicone (Maalox Plus 30 Ml) 30 ml PO Q6 PRN PRN Reason: Indigestion / Heartburn Last Admin: 01/31/17 12:41 Dose: 30 ml Bacitracin (Bacitracin Oint) 1 applic TOP DAILY [facility] Last Admin: 02/04/17 08:22 Dose: 1 applic Benzocaine/Menthol (Cepacol Sore Throat) 1 lul PO Q3 PRN PRN Reason: Sore Throat Diphenhydramine HCl (Benadryl) 25 mg PO HS [facility] Last Admin: 02/04/17 21:06 Dose: 25 mg Docusate Sodium (Colace) 100 mg PO BID PRN PRN Reason: Constipation Docusate Sodium (Colace) 100 mg PO BID [facility] Last Admin: 02/04/17 16:27 Dose: 100 mg Enoxaparin Sodium (Lovenox) 40 mg SC DAILY [facility] PRN Reason: Protocol Fluconazole (Diflucan) 200 mg PO DAILY [facility] Last Admin: 02/04/17 08:22 Dose: 200 mg Hydrochlorothiazide (Microzide) 12.5 mg PO DAILY [facility] Last Admin: 02/04/17 08:23 Dose: 12.5 mg Nafcillin Sodium 2 gm/ Sodium (Chloride) 100 mls @ 100 mls/hr IVPB 0600,1200, 1800,0000 [facility] PRN Reason: Protocol Last Admin: 02/05/17 06:38 Dose: 100 mls/hr Lidocaine HCl (Xylocaine 2%) 1 applic TOP Q8H PRN PRN Reason: Pain, Mild (1-3) Last Admin: 02/04/17 21:08 Dose: 1 unit Metoprolol Tartrate (Lopressor) 25 mg PO Q12 [facility] Last Admin: 02/04/17 21:06 Dose: 25 mg Ondansetron HCl (Zofran Inj) 4 mg IVP Q6 PRN PRN Reason: Nausea/Vomiting Last Admin: 02/04/17 09:57 Dose: 4 mg Pantoprazole Sodium (Protonix Ec Tab) 40 mg PO DAILY [facility] Last Admin: 02/04/17 08:23 Dose: 40 mg Sodium Chloride ([place] Nasal [place]) 1 sprays [place] Q4 PRN PRN Reason: Nasal congestion Tramadol HCl (Ultram) 50 mg PO Q4 PRN PRN Reason: Pain, moderate (4-7) Last Admin: 02/04/17 23:26 Dose: 50 mg Zolpidem Tartrate (Ambien) 10 mg PO HS PRN PRN Reason: Insomnia Last Admin: 02/04/17 21:06 Dose: 10 mg - Labs Labs: 02/02/17 08:00 02/02/17 05:40 - Constitutional Appears: Well, Non-toxic, No Acute Distress - Extremities Exam Additional comments: RLE focused physical exam: Vasc: DP and PT pulses palpable 2/4. CFT <3 seconds to all digits. Temperature gradient warm to warm. No edema noted. No increase in warmth right 2nd digit Neuro: Gross sensation slightly diminished. Derm: Ulceration measuring approximately 0.3 x 0.3 x 0.1 cm noted to plantar aspect of 2nd digit distal tuft - ulcer is noted to have a 100% granular base. No purulence or drainage noted. No malodor, no fluctuance, no probe to bone noted. Ortho: No tenderness to palpation right 2nd digit. 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 Treadwell Ulceration cleansed with saline, bacitracin applied to ulceration and right 2nd digit dressed with DSD and marc Continue with local wound care Right foot wound culture final report - morg morganii ss morganii, staphylococcus aureus Continue abx per ID = Cefepime Podiatry will continue to follow patient while in house Patient is stable per podiatry Will followup with Dr. Treadwell within 1 week upon discharge
[2017-02-05] MEDS: Enoxaparin 40 mg Syringe SC SCH (09:53)
[2017-02-05] MEDS: Pantoprazole 40 mg EC Tab PO SCH (09:54)
--- NOTE | 2017-02-05 09:59 | CP.PCM.PN ---
Subjective - Date & Time of Evaluation Date of Evaluation: 02/05/17 Time of Evaluation: 09:57 - Subjective Subjective: Pt is feeling better.. He was able to sleep well, and is doing well with the rehab. Cleared by Dr moss to start chemotherapy on thursday Objective - Vital Signs/Intake and Output Vital Signs (last 24 hours): Temp Pulse Resp BP Pulse Ox 96.6 F L 82 20 137/63 96 02/05/17 08:01 02/05/17 08:01 02/05/17 08:01 02/05/17 08:01 02/05/17 08:01 - Medications Medications: Current Medications Acetaminophen (Tylenol 325mg Tab) 650 mg PO Q6 PRN PRN Reason: Fever >100.4 F Last Admin: 02/02/17 03:17 Dose: 650 mg Acetaminophen (Tylenol 325mg Tab) 650 mg PO Q6 PRN PRN Reason: Fever >100.4 F Al Hydrox/Mg Hydrox/Simethicone (Maalox Plus 30 Ml) 30 ml PO Q6 PRN PRN Reason: Indigestion / Heartburn Last Admin: 01/31/17 12:41 Dose: 30 ml Bacitracin (Bacitracin Oint) 1 applic TOP DAILY [facility] Last Admin: 02/04/17 08:22 Dose: 1 applic Benzocaine/Menthol (Cepacol Sore Throat) 1 lul PO Q3 PRN PRN Reason: Sore Throat Diphenhydramine HCl (Benadryl) 25 mg PO HS [facility] Last Admin: 02/04/17 21:06 Dose: 25 mg Docusate Sodium (Colace) 100 mg PO BID PRN PRN Reason: Constipation Docusate Sodium (Colace) 100 mg PO BID [facility] Last Admin: 02/04/17 16:27 Dose: 100 mg Enoxaparin Sodium (Lovenox) 40 mg SC DAILY [facility] PRN Reason: Protocol Fluconazole (Diflucan) 200 mg PO DAILY [facility] Last Admin: 02/04/17 08:22 Dose: 200 mg Hydrochlorothiazide (Microzide) 12.5 mg PO DAILY [facility] Last Admin: 02/04/17 08:23 Dose: 12.5 mg Nafcillin Sodium 2 gm/ Sodium (Chloride) 100 mls @ 100 mls/hr IVPB 0600,1200, 1800,0000 [facility] PRN Reason: Protocol Last Admin: 10/19/17 06:38 Dose: 100 mls/hr Lidocaine HCl (Xylocaine 2%) 1 applic TOP Q8H PRN PRN Reason: Pain, Mild (1-3) Last Admin: 02/04/17 21:08 Dose: 1 unit Metoprolol Tartrate (Lopressor) 25 mg PO Q12 [facility] Last Admin: 02/04/17 21:06 Dose: 25 mg Ondansetron HCl (Zofran Inj) 4 mg IVP Q6 PRN PRN Reason: Nausea/Vomiting Last Admin: 02/04/17 09:57 Dose: 4 mg Pantoprazole Sodium (Protonix Ec Tab) 40 mg PO DAILY [facility] Last Admin: 02/04/17 08:23 Dose: 40 mg Sodium Chloride ([place] Nasal [place]) 1 sprays [facility] Q4 PRN PRN Reason: Nasal congestion Tramadol HCl (Ultram) 50 mg PO Q4 PRN PRN Reason: Pain, moderate (4-7) Last Admin: 02/04/17 23:26 Dose: 50 mg Zolpidem Tartrate (Ambien) 10 mg PO HS PRN PRN Reason: Insomnia Last Admin: 02/04/17 21:06 Dose: 10 mg - Labs Labs: 02/02/17 08:00 02/02/17 05:40
[2017-02-05] MEDS: Bacitracin OINT 15GM TOP SCH (10:06)
--- NOTE | 2017-02-05 10:54 | CP.PCM.PN ---
Subjective - Date & Time of Evaluation Date of Evaluation: 02/05/17 Time of Evaluation: 13:42 - Subjective Subjective: pt resting comfortably in bed no complaints offered to this author denies cp sob doing well with PT HD stable Objective - Vital Signs/Intake and Output Vital Signs (last 24 hours): Temp Pulse Resp BP Pulse Ox 96.6 F L 82 20 137/63 96 02/05/17 08:01 02/05/17 09:52 02/05/17 08:01 02/05/17 09:52 02/05/17 08:01 Constitutional- cooperative, awake, alert. Head- NCAT, PERRL Eye- PERRL, normal accommodation ENT- normal exam, MMM. Neck- normal inspection, supple, no JVD Respiratory- CTAB, no wheezes rales rhonchi Cardiovascular- RRR, +S1, +S2 no MRG GI/Abdominal- normal bowel sounds, soft Skin- warm, dry Extremities Exam- normal capillary refill, normal inspection Neurological Exam- alert, oriented Psych- normal mood, normal affect - Medications Medications: Current Medications Acetaminophen (Tylenol 325mg Tab) 650 mg PO Q6 PRN PRN Reason: Fever >100.4 F Last Admin: 02/02/17 03:17 Dose: 650 mg Acetaminophen (Tylenol 325mg Tab) 650 mg PO Q6 PRN PRN Reason: Fever >100.4 F Al Hydrox/Mg Hydrox/Simethicone (Maalox Plus 30 Ml) 30 ml PO Q6 PRN PRN Reason: Indigestion / Heartburn Last Admin: 01/31/17 12:41 Dose: 30 ml Bacitracin (Bacitracin Oint) 1 applic TOP DAILY [facility] Last Admin: 02/05/17 10:06 Dose: Not Given Benzocaine/Menthol (Cepacol Sore Throat) 1 lul PO Q3 PRN PRN Reason: Sore Throat Diphenhydramine HCl (Benadryl) 25 mg PO HS [facility] Last Admin: 02/04/17 21:06 Dose: 25 mg Docusate Sodium (Colace) 100 mg PO BID PRN PRN Reason: Constipation Docusate Sodium (Colace) 100 mg PO BID [facility] Last Admin: 02/05/17 09:50 Dose: 100 mg Enoxaparin Sodium (Lovenox) 40 mg SC DAILY [facility] PRN Reason: Protocol Last Admin: 02/05/17 09:53 Dose: 40 mg Fluconazole (Diflucan) 200 mg PO DAILY [facility] Last Admin: 02/05/17 09:52 Dose: 200 mg Hydrochlorothiazide (Microzide) 12.5 mg PO DAILY [facility] Last Admin: 02/05/17 09:54 Dose: 12.5 mg Nafcillin Sodium 2 gm/ Sodium (Chloride) 100 mls @ 100 mls/hr IVPB 0600,1200, 1800,0000 [facility] PRN Reason: Protocol Last Admin: 02/05/17 06:38 Dose: 100 mls/hr Lidocaine HCl (Xylocaine 2%) 1 applic TOP Q8H PRN PRN Reason: Pain, Mild (1-3) Last Admin: 02/04/17 21:08 Dose: 1 unit Metoprolol Tartrate (Lopressor) 25 mg PO Q12 [facility] Last Admin: 02/05/17 09:52 Dose: 25 mg Ondansetron HCl (Zofran Inj) 4 mg IVP Q6 PRN PRN Reason: Nausea/Vomiting Last Admin: 02/04/17 09:57 Dose: 4 mg Pantoprazole Sodium (Protonix Ec Tab) 40 mg PO DAILY [facility] Last Admin: 02/05/17 09:54 Dose: 40 mg Sodium Chloride ([place] Nasal [place]) 1 sprays [place] Q4 PRN PRN Reason: Nasal congestion Tramadol HCl (Ultram) 50 mg PO Q4 PRN PRN Reason: Pain, moderate (4-7) Last Admin: 02/05/17 10:04 Dose: 50 mg Zolpidem Tartrate (Ambien) 10 mg PO HS PRN PRN Reason: Insomnia Last Admin: 02/04/17 21:06 Dose: 10 mg - Labs Labs: 02/02/17 08:00 02/02/17 05:40 Assessment and Plan - Assessment and Plan (Free Text) Plan: 76 yo male with history of HTN, 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 He was put On IV Vanco and Zosyn and had I&D of the effusion of the left knee. He was transferred to TCU for continuation of IV antibiotics for a total of at least 21 days. 1.Sepsis resolved 2.Neutropenic fever resolved 3. Question of Pneumonia CT of chest : no acute infiltrate however noted multiple pulm nodules and pleural based soft tissue mass continue IV Zosyn and Vanco Blood c/s: negative, Dr Rodriguez on board Mycoplasma ag IG + however , IgM pending Strep ag negative 4. Atrial Fibrillation rate controlled continue Metoprolol 5. Pancytopenia secondary to chemotherapy Neutropenia resolved with [facility]e Oncology - Dr Donny Logan on consult 6. Metastatic Raúl Carcinoma Oncology on consult chemo on hold during IV antibiotics 7. Left knee effusion/ suspected septic arthritis Ortho consult : Dr Del Angel Had I&D Cultures were sent on IV Zosyn and vanco for at least 21 days as per ID 8.Hypertension, chronic BP stable cont Metoprolol 9. DVT prophylaxis on Lovenox
--- NOTE | 2017-02-05 12:42 | CP.PCM.PN ---
Subjective - Date & Time of Evaluation Date of Evaluation: 02/05/17 Time of Evaluation: 12:38 - Subjective Subjective: Complaining that he is too sleepy. Has some complaint of back pain. No cough or SOB. Breath sounds are diminished bilaterally and absent in the left base posteriorly. No rales, wheezes or bronchial breath sounds. No rash or other eruptions or breakdown over the posterior chest wall. Zolpidem decreased back to 5MG (the original dose before he complained it was not strong enough). Will continue the HS diphenhydramine 25. Repeat a portable upright CXR. Objective - Vital Signs/Intake and Output Vital Signs (last 24 hours): Temp Pulse Resp BP Pulse Ox 96.6 F L 82 20 137/63 96 02/05/17 08:01 02/05/17 09:52 02/05/17 08:01 02/05/17 09:52 02/05/17 08:01 - Medications Medications: Current Medications Acetaminophen (Tylenol 325mg Tab) 650 mg PO Q6 PRN PRN Reason: Fever >100.4 F Last Admin: 02/02/17 03:17 Dose: 650 mg Acetaminophen (Tylenol 325mg Tab) 650 mg PO Q6 PRN PRN Reason: Fever >100.4 F Al Hydrox/Mg Hydrox/Simethicone (Maalox Plus 30 Ml) 30 ml PO Q6 PRN PRN Reason: Indigestion / Heartburn Last Admin: 01/31/17 12:41 Dose: 30 ml Bacitracin (Bacitracin Oint) 1 applic TOP DAILY [facility] Last Admin: 02/05/17 10:06 Dose: Not Given Benzocaine/Menthol (Cepacol Sore Throat) 1 lul PO Q3 PRN PRN Reason: Sore Throat Diphenhydramine HCl (Benadryl) 25 mg PO HS [facility] Last Admin: 02/04/17 21:06 Dose: 25 mg Docusate Sodium (Colace) 100 mg PO BID PRN PRN Reason: Constipation Docusate Sodium (Colace) 100 mg PO BID [facility] Last Admin: 02/05/17 09:50 Dose: 100 mg Enoxaparin Sodium (Lovenox) 40 mg SC DAILY [facility] PRN Reason: Protocol Last Admin: 02/05/17 09:53 Dose: 40 mg Fluconazole (Diflucan) 200 mg PO DAILY [facility] Last Admin: 02/05/17 09:52 Dose: 200 mg Hydrochlorothiazide (Microzide) 12.5 mg PO DAILY [facility] Last Admin: 02/05/17 09:54 Dose: 12.5 mg Nafcillin Sodium 2 gm/ Sodium (Chloride) 100 mls @ 100 mls/hr IVPB 0600,1200, 1800,0000 [facility] PRN Reason: Protocol Last Admin: 02/05/17 06:38 Dose: 100 mls/hr Lidocaine HCl (Xylocaine 2%) 1 applic TOP Q8H PRN PRN Reason: Pain, Mild (1-3) Last Admin: 02/04/17 21:08 Dose: 1 unit Metoprolol Tartrate (Lopressor) 25 mg PO Q12 [facility] Last Admin: 02/05/17 09:52 Dose: 25 mg Ondansetron HCl (Zofran Inj) 4 mg IVP Q6 PRN PRN Reason: Nausea/Vomiting Last Admin: 02/04/17 09:57 Dose: 4 mg Pantoprazole Sodium (Protonix Ec Tab) 40 mg PO DAILY [facility] Last Admin: 02/05/17 09:54 Dose: 40 mg Sodium Chloride ([place] Nasal [place]) 1 sprays [place] Q4 PRN PRN Reason: Nasal congestion Tramadol HCl (Ultram) 50 mg PO Q4 PRN PRN Reason: Pain, moderate (4-7) Last Admin: 02/05/17 10:04 Dose: 50 mg Zolpidem Tartrate (Ambien) 5 mg PO HS [facility] - Labs Labs: 02/02/17 08:00 02/02/17 05:40 Assessment and Plan (1) [place] cell carcinoma Status: Chronic (2) Metastatic carcinoma Status: Chronic
--- NOTE | 2017-02-05 18:16 | RAD ---
HISTORY: metastatic carcinoma . Technique: Single view portable semi erect @ 15:30. COMPARISON: 01/24/2017 FINDINGS: LUNGS: Stable findings including masses in the right apex and left lower lobe. PLEURA: Left pleural effusion unchanged CARDIOVASCULAR: No radiographic findings to suggest acute or significant cardiovascular disease.Venous access catheter in stable, satisfactory position. OSSEOUS STRUCTURES: No significant abnormalities. VISUALIZED UPPER ABDOMEN: Normal. OTHER FINDINGS: None. IMPRESSION: No significant interval change compared to the prior examination(s).
[2017-02-06] MEDS: Nafcillin 2 GM in Sodium Chloride 0.9% 100 ML IVPB SCH ×4 (00:19→17:00)
--- NOTE | 2017-02-06 06:39 | CP.PCM.PN ---
Subjective - Date & Time of Evaluation Date of Evaluation: 02/06/17 Time of Evaluation: 06:36 - Subjective Subjective: Podiatry Progress Note - Dr. Treadwell 76 year old male patient PMHx [place] cell carcinoma with lung metastasis, left knee effusion s/p L knee I&D,seen at bedside in TCU for right 2nd digit wound. Patient is seen laying in bed in discomfort. Reports have been having back pain. Patient denies any acute overnight events. Patient denies any pain to his lower extremities. Patient denies N/V/F/D/C/SOB/calf pain. Offers no other pedal complaints at this time. Objective - Vital Signs/Intake and Output Vital Signs (last 24 hours): Temp Pulse Resp BP Pulse Ox 98.2 F 86 20 126/64 93 L 02/05/17 19:47 02/05/17 22:20 02/05/17 19:47 02/05/17 19:47 02/05/17 19:47 - Medications Medications: Current Medications Acetaminophen (Tylenol 325mg Tab) 650 mg PO Q6 PRN PRN Reason: Fever >100.4 F Last Admin: 02/02/17 03:17 Dose: 650 mg Acetaminophen (Tylenol 325mg Tab) 650 mg PO Q6 PRN PRN Reason: Fever >100.4 F Al Hydrox/Mg Hydrox/Simethicone (Maalox Plus 30 Ml) 30 ml PO Q6 PRN PRN Reason: Indigestion / Heartburn Last Admin: 01/31/17 12:41 Dose: 30 ml Bacitracin (Bacitracin Oint) 1 applic TOP DAILY [facility] Last Admin: 02/05/17 10:06 Dose: Not Given Benzocaine/Menthol (Cepacol Sore Throat) 1 lul PO Q3 PRN PRN Reason: Sore Throat Diphenhydramine HCl (Benadryl) 25 mg PO HS [facility] Last Admin: 02/05/17 22:20 Dose: Not Given Docusate Sodium (Colace) 100 mg PO BID PRN PRN Reason: Constipation Docusate Sodium (Colace) 100 mg PO BID [facility] Last Admin: 02/05/17 17:00 Dose: Not Given Enoxaparin Sodium (Lovenox) 40 mg SC DAILY [facility] PRN Reason: Protocol Last Admin: 02/05/17 09:53 Dose: 40 mg Fluconazole (Diflucan) 200 mg PO DAILY [facility] Last Admin: 02/05/17 09:52 Dose: 200 mg Hydrochlorothiazide (Microzide) 12.5 mg PO DAILY [facility] Last Admin: 02/05/17 09:54 Dose: 12.5 mg Nafcillin Sodium 2 gm/ Sodium (Chloride) 100 mls @ 100 mls/hr IVPB 0600,1200, 1800,0000 [facility] PRN Reason: Protocol Last Admin: 02/06/17 05:47 Dose: 100 mls/hr Lidocaine HCl (Xylocaine 2%) 1 applic TOP Q8H PRN PRN Reason: Pain, Mild (1-3) Last Admin: 02/04/17 21:08 Dose: 1 unit Metoprolol Tartrate (Lopressor) 25 mg PO Q12 [facility] Last Admin: 02/05/17 22:20 Dose: 25 mg Ondansetron HCl (Zofran Inj) 4 mg IVP Q6 PRN PRN Reason: Nausea/Vomiting Last Admin: 02/04/17 09:57 Dose: 4 mg Pantoprazole Sodium (Protonix Ec Tab) 40 mg PO DAILY [facility] Last Admin: 02/05/17 09:54 Dose: 40 mg Sodium Chloride ([place] Nasal [place]) 1 sprays [place] Q4 PRN PRN Reason: Nasal congestion Tramadol HCl (Ultram) 50 mg PO Q4 PRN PRN Reason: Pain, moderate (4-7) Last Admin: 02/05/17 10:04 Dose: 50 mg Zolpidem Tartrate (Ambien) 5 mg PO HS [facility] Last Admin: 02/05/17 22:20 Dose: 5 mg - Labs Labs: 02/02/17 08:00 02/02/17 05:40 - Constitutional Appears: Well, Toxic, No Acute Distress - Extremities Exam Additional comments: RLE focused physical exam: Vasc: DP and PT pulses palpable 2/4. CFT <3 seconds to all digits. Temperature gradient warm to warm. No edema noted. No increase in warmth right 2nd digit Neuro: Gross sensation slightly diminished. Derm: Ulceration measuring approximately 0.2 x 0.3 x 0.1 cm noted to plantar aspect of 2nd digit distal tuft - ulcer is noted to have a 100% granular base. No purulence or drainage noted. No erythema, no streaking, No malodor, no fluctuance, no probe to bone noted. No clinical signs of infection. Ortho: No tenderness to palpation right 2nd digit. 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 Treadwell Ulceration cleansed with saline, bacitracin applied to ulceration and right 2nd digit dressed with DSD and marc Continue with local wound care Right foot wound culture final report - morg morganii ss morganii, staphylococcus aureus Continue abx per ID Podiatry will continue to follow patient while in house Patient is stable per podiatry Will followup with Dr. Treadwell within 1 week upon discharge
--- NOTE | 2017-02-06 08:33 | CP.PCM.PN ---
Subjective - Date & Time of Evaluation Date of Evaluation: 02/06/17 Time of Evaluation: 08:29 - Subjective Subjective: Pt is feeling better,no inflammatory changes seen in the affected knee. He is on the antibiotics for another 4 weeks. Will do CBC a and CMP before Thursday at which time he will get chemotherapy Objective - Vital Signs/Intake and Output Vital Signs (last 24 hours): Temp Pulse Resp BP Pulse Ox 97.1 F L 83 20 126/70 96 02/06/17 08:12 02/06/17 08:12 02/06/17 08:12 02/06/17 08:12 02/06/17 08:12 - Medications Medications: Current Medications Acetaminophen (Tylenol 325mg Tab) 650 mg PO Q6 PRN PRN Reason: Fever >100.4 F Last Admin: 02/02/17 03:17 Dose: 650 mg Acetaminophen (Tylenol 325mg Tab) 650 mg PO Q6 PRN PRN Reason: Fever >100.4 F Al Hydrox/Mg Hydrox/Simethicone (Maalox Plus 30 Ml) 30 ml PO Q6 PRN PRN Reason: Indigestion / Heartburn Last Admin: 01/31/17 12:41 Dose: 30 ml Bacitracin (Bacitracin Oint) 1 applic TOP DAILY [facility] Last Admin: 02/05/17 10:06 Dose: Not Given Benzocaine/Menthol (Cepacol Sore Throat) 1 lul PO Q3 PRN PRN Reason: Sore Throat Diphenhydramine HCl (Benadryl) 25 mg PO HS [facility] Last Admin: 02/05/17 22:20 Dose: Not Given Docusate Sodium (Colace) 100 mg PO BID PRN PRN Reason: Constipation Docusate Sodium (Colace) 100 mg PO BID [facility] Last Admin: 02/05/17 17:00 Dose: Not Given Enoxaparin Sodium (Lovenox) 40 mg SC DAILY [facility] PRN Reason: Protocol Last Admin: 02/05/17 09:53 Dose: 40 mg Fluconazole (Diflucan) 200 mg PO DAILY [facility] Last Admin: 02/05/17 09:52 Dose: 200 mg Hydrochlorothiazide (Microzide) 12.5 mg PO DAILY [facility] Last Admin: 02/05/17 09:54 Dose: 12.5 mg Nafcillin Sodium 2 gm/ Sodium (Chloride) 100 mls @ 100 mls/hr IVPB 0600,1200, 1800,0000 [facility] PRN Reason: Protocol Last Admin: 02/06/17 05:47 Dose: 100 mls/hr Lidocaine HCl (Xylocaine 2%) 1 applic TOP Q8H PRN PRN Reason: Pain, Mild (1-3) Last Admin: 02/04/17 21:08 Dose: 1 unit Metoprolol Tartrate (Lopressor) 25 mg PO Q12 [facility] Last Admin: 02/05/17 22:20 Dose: 25 mg Ondansetron HCl (Zofran Inj) 4 mg IVP Q6 PRN PRN Reason: Nausea/Vomiting Last Admin: 02/04/17 09:57 Dose: 4 mg Pantoprazole Sodium (Protonix Ec Tab) 40 mg PO DAILY [facility] Last Admin: 02/05/17 09:54 Dose: 40 mg Sodium Chloride ([place] Nasal [place]) 1 sprays [place] Q4 PRN PRN Reason: Nasal congestion Tramadol HCl (Ultram) 50 mg PO Q4 PRN PRN Reason: Pain, moderate (4-7) Last Admin: 02/05/17 10:04 Dose: 50 mg Zolpidem Tartrate (Ambien) 5 mg PO HS [facility] Last Admin: 02/05/17 22:20 Dose: 5 mg - Labs Labs: 02/02/17 08:00 02/02/17 05:40
[2017-02-06] MEDS: Bacitracin OINT 15GM TOP SCH (08:55)
[2017-02-06] MEDS: Enoxaparin 40 mg Syringe SC SCH (08:56)
[2017-02-06] MEDS: Pantoprazole 40 mg EC Tab PO SCH (08:56)
[2017-02-06 09:31] LABS: BASO # 0.1 K/uL (0.0-0.2); BASO % 0.7 % (0.0-2.0); HEMATOCRIT 25.8 % (35.0-51.0); LYMPH # 1.3 K/uL (1.0-4.3); MEAN CELL VOLUME 75.6 fl (80.0-94.0); MEAN CORPUSCULAR HEMOGLOBIN 25.3 pg (27.0-31.0); MEAN CORPUSCULAR HGB CONC 33.5 g/dL (33.0-37.0); MONO # 0.9 K/uL (0.0-0.8); MONO % 8.8 % (0.0-10.0); NEUT % 77.5 % (50.0-75.0); RED CELL DISTRIBUTION WIDTH 19.4 % (11.5-14.5); WHITE BLOOD COUNT 10.3 K/uL (4.8-10.8)
[2017-02-06 09:45] LABS: ALKALINE PHOSPHATASE 82 U/L (38-126); ALT/SGPT 45 U/L (21-72); AST/SGOT 60 U/L (17-59); BILIRUBIN,TOTAL 1.3 mg/dl (0.2-1.3); BLOOD UREA NITROGEN 18 mg/dl (9-20); CALCIUM 9.5 mg/dL (8.4-10.2); CARBON DIOXIDE 26 mmol/L (22-30); CHLORIDE 95 mmol/L (98-107); GFR AFRICAN-AMERICAN > 60; GLUCOSE,RANDOM 136 mg/dL (75-110); POTASSIUM 3.1 MMOL/L (3.6-5.0); SODIUM 131 mmol/l (132-148)
--- NOTE | 2017-02-06 11:34 | CP.PCM.PN ---
Subjective - Date & Time of Evaluation Date of Evaluation: 02/06/17 Time of Evaluation: 11:34 - Subjective Subjective: The patient is seen in the transitional care unit. He is presently in bed with some mild lower back pain. He has been participating in physical therapy to the best of his ability, but is limited by pain and upon standing and attempting to ambulate. He offers no complaints at the present time with cough or shortness of breath. His vital signs have remained stable. He will resume chemotherapy next week. Objective - Vital Signs/Intake and Output Vital Signs (last 24 hours): Temp Pulse Resp BP Pulse Ox 97.1 F L 83 20 126/70 98 02/06/17 08:12 02/06/17 09:59 02/06/17 08:12 02/06/17 09:59 02/06/17 09:59 - Medications Medications: Current Medications Acetaminophen (Tylenol 325mg Tab) 650 mg PO Q6 PRN PRN Reason: Fever >100.4 F Last Admin: 02/02/17 03:17 Dose: 650 mg Acetaminophen (Tylenol 325mg Tab) 650 mg PO Q6 PRN PRN Reason: Fever >100.4 F Al Hydrox/Mg Hydrox/Simethicone (Maalox Plus 30 Ml) 30 ml PO Q6 PRN PRN Reason: Indigestion / Heartburn Last Admin: 01/31/17 12:41 Dose: 30 ml Bacitracin (Bacitracin Oint) 1 applic TOP DAILY [facility] Last Admin: 02/06/17 08:55 Dose: Not Given Benzocaine/Menthol (Cepacol Sore Throat) 1 lul PO Q3 PRN PRN Reason: Sore Throat Diphenhydramine HCl (Benadryl) 25 mg PO HS [facility] Last Admin: 02/05/17 22:20 Dose: Not Given Docusate Sodium (Colace) 100 mg PO BID PRN PRN Reason: Constipation Docusate Sodium (Colace) 100 mg PO BID [facility] Last Admin: 02/06/17 08:56 Dose: 100 mg Enoxaparin Sodium (Lovenox) 40 mg SC DAILY [facility] PRN Reason: Protocol Last Admin: 02/06/17 08:56 Dose: 40 mg Fluconazole (Diflucan) 200 mg PO DAILY [facility] Last Admin: 02/06/17 08:56 Dose: 200 mg Hydrochlorothiazide (Microzide) 12.5 mg PO DAILY [facility] Last Admin: 02/06/17 08:56 Dose: 12.5 mg Nafcillin Sodium 2 gm/ Sodium (Chloride) 100 mls @ 100 mls/hr IVPB 0600,1200, 1800,0000 [facility] PRN Reason: Protocol Last Admin: 02/06/17 05:47 Dose: 100 mls/hr Lidocaine HCl (Xylocaine 2%) 1 applic TOP Q8H PRN PRN Reason: Pain, Mild (1-3) Last Admin: 02/04/17 21:08 Dose: 1 unit Metoprolol Tartrate (Lopressor) 25 mg PO Q12 [facility] Last Admin: 02/06/17 08:56 Dose: 25 mg Ondansetron HCl (Zofran Inj) 4 mg IVP Q6 PRN PRN Reason: Nausea/Vomiting Last Admin: 02/04/17 09:57 Dose: 4 mg Pantoprazole Sodium (Protonix Ec Tab) 40 mg PO DAILY [facility] Last Admin: 02/06/17 08:56 Dose: 40 mg Sodium Chloride ([place] Nasal [place]) 1 sprays [facility] Q4 PRN PRN Reason: Nasal congestion Tramadol HCl (Ultram) 50 mg PO Q4 PRN PRN Reason: Pain, moderate (4-7) Last Admin: 02/06/17 08:58 Dose: 50 mg Zolpidem Tartrate (Ambien) 5 mg PO HS [facility] Last Admin: 02/05/17 22:20 Dose: 5 mg - Labs Labs: 02/06/17 08:55 02/06/17 08:55 Assessment and Plan (1) [place] cell carcinoma Status: Chronic (2) Metastatic carcinoma Status: Chronic
--- NOTE | 2017-02-06 12:57 | CP.PCM.PN ---
Subjective - Date & Time of Evaluation Date of Evaluation: 02/06/17 Time of Evaluation: 08:00 - Subjective Subjective: events noted slow progress Objective - Vital Signs/Intake and Output Vital Signs (last 24 hours): Temp Pulse Resp BP Pulse Ox 97.1 F L 83 20 126/70 98 02/06/17 08:12 02/06/17 09:59 02/06/17 08:12 02/06/17 09:59 02/06/17 09:59 - Medications Medications: Current Medications Acetaminophen (Tylenol 325mg Tab) 650 mg PO Q6 PRN PRN Reason: Fever >100.4 F Last Admin: 02/02/17 03:17 Dose: 650 mg Acetaminophen (Tylenol 325mg Tab) 650 mg PO Q6 PRN PRN Reason: Fever >100.4 F Al Hydrox/Mg Hydrox/Simethicone (Maalox Plus 30 Ml) 30 ml PO Q6 PRN PRN Reason: Indigestion / Heartburn Last Admin: 01/31/17 12:41 Dose: 30 ml Bacitracin (Bacitracin Oint) 1 applic TOP DAILY [facility] Last Admin: 02/06/17 08:55 Dose: Not Given Benzocaine/Menthol (Cepacol Sore Throat) 1 lul PO Q3 PRN PRN Reason: Sore Throat Diphenhydramine HCl (Benadryl) 25 mg PO HS [facility] Last Admin: 02/05/17 22:20 Dose: Not Given Docusate Sodium (Colace) 100 mg PO BID PRN PRN Reason: Constipation Docusate Sodium (Colace) 100 mg PO BID [facility] Last Admin: 02/06/17 08:56 Dose: 100 mg Enoxaparin Sodium (Lovenox) 40 mg SC DAILY [facility] PRN Reason: Protocol Last Admin: 02/06/17 08:56 Dose: 40 mg Fluconazole (Diflucan) 200 mg PO DAILY [facility] Last Admin: 02/06/17 08:56 Dose: 200 mg Hydrochlorothiazide (Microzide) 12.5 mg PO DAILY [facility] Last Admin: 02/06/17 08:56 Dose: 12.5 mg Nafcillin Sodium 2 gm/ Sodium (Chloride) 100 mls @ 100 mls/hr IVPB 0600,1200, 1800,0000 [facility] PRN Reason: Protocol Last Admin: 02/06/17 12:30 Dose: 100 mls/hr Lidocaine HCl (Xylocaine 2%) 1 applic TOP Q8H PRN PRN Reason: Pain, Mild (1-3) Last Admin: 02/04/17 21:08 Dose: 1 unit Metoprolol Tartrate (Lopressor) 25 mg PO Q12 [facility] Last Admin: 02/06/17 08:56 Dose: 25 mg Ondansetron HCl (Zofran Inj) 4 mg IVP Q6 PRN PRN Reason: Nausea/Vomiting Last Admin: 02/04/17 09:57 Dose: 4 mg Pantoprazole Sodium (Protonix Ec Tab) 40 mg PO DAILY [facility] Last Admin: 02/06/17 08:56 Dose: 40 mg Sodium Chloride ([place] Nasal [place]) 1 sprays [facility] Q4 PRN PRN Reason: Nasal congestion Tramadol HCl (Ultram) 50 mg PO Q4 PRN PRN Reason: Pain, moderate (4-7) Last Admin: 02/06/17 08:58 Dose: 50 mg Zolpidem Tartrate (Ambien) 5 mg PO HS [facility] Last Admin: 02/05/17 22:20 Dose: 5 mg - Labs Labs: 02/06/17 08:55 02/06/17 08:55 - Constitutional Appears: Non-toxic, Cachectic, Chronically Ill - Head Exam Head Exam: NORMOCEPHALIC - Eye Exam Eye Exam: PERRL - ENT Exam ENT Exam: Normal External Ear Exam - Neck Exam Neck Exam: absent: Lymphadenopathy - Respiratory Exam Respiratory Exam: Decreased Breath Sounds - Cardiovascular Exam Cardiovascular Exam: REGULAR RHYTHM - GI/Abdominal Exam GI & Abdominal Exam: Distended - Rectal Exam Rectal Exam: Deferred - Exam Exam: NORMAL INSPECTION - Extremities Exam Extremities Exam: Pedal Edema - Back Exam Back Exam: absent: CVA tenderness (L), CVA tenderness (R) Assessment and Plan (1) Cellulitis, leg Status: Acute (2) Immunocompromised state Status: Acute (3) Knee effusion, left Status: Acute (4) Pneumonia Status: Acute (5) HTN (hypertension) Status: Chronic (6) [place] cell carcinoma Status: Chronic (7) Septic arthritis Status: Acute - Assessment and Plan (Free Text) Assessment: s/p sepsis/ septic arthritis/ neutropenic fever with MSSA from left knee TKR cont iv antibiotics for [address] Del Angel cont wound care for Chemo on Thursday
[2017-02-06] MEDS ORDERED: Potassium Chloride 20 mEq ER Tab PO ONE (18:54)
[2017-02-07] MEDS: Nafcillin 2 GM in Sodium Chloride 0.9% 100 ML IVPB SCH ×5 (00:14→23:02)
[2017-02-07 08:15] LABS: BLOOD UREA NITROGEN 18 mg/dl (9-20); CALCIUM 10.1 mg/dL (8.4-10.2); CARBON DIOXIDE 30 mmol/L (22-30); CHLORIDE 95 mmol/L (98-107); GFR AFRICAN-AMERICAN > 60; GLUCOSE,RANDOM 96 mg/dL (75-110); MAGNESIUM 1.3 MG/DL (1.6-2.3); POTASSIUM 3.6 MMOL/L (3.6-5.0); SODIUM 133 mmol/l (132-148)
[2017-02-07] MEDS: Enoxaparin 40 mg Syringe SC SCH (08:52)
[2017-02-07] MEDS: Bacitracin OINT 15GM TOP SCH (08:54)
[2017-02-07] MEDS: Pantoprazole 40 mg EC Tab PO SCH (08:55)
--- NOTE | 2017-02-07 10:15 | CP.PCM.PN ---
Subjective - Date & Time of Evaluation Date of Evaluation: 02/07/17 Time of Evaluation: 16:25 - Subjective Subjective: Podiatry Progress Note - Dr. 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 Patient is seen laying in bed resting comfortably at this time. Pt states he is doing fine at this time given his circumstances. Patient denies any acute overnight events. Patient denies any pain to his lower extremities or to his right foot wound. Patient denies F/C/N/V/SOB/calf pain. Pt has no other pedal complaints at this time. Objective - Vital Signs/Intake and Output Vital Signs (last 24 hours): Temp Pulse Resp BP Pulse Ox 97.9 F 84 20 138/71 95 02/07/17 09:17 02/07/17 09:17 02/07/17 09:17 02/07/17 09:17 02/07/17 09:17 - Medications Medications: Current Medications Acetaminophen (Tylenol 325mg Tab) 650 mg PO Q6 PRN PRN Reason: Fever >100.4 F Last Admin: 02/02/17 03:17 Dose: 650 mg Acetaminophen (Tylenol 325mg Tab) 650 mg PO Q6 PRN PRN Reason: Fever >100.4 F Al Hydrox/Mg Hydrox/Simethicone (Maalox Plus 30 Ml) 30 ml PO Q6 PRN PRN Reason: Indigestion / Heartburn Last Admin: 01/31/17 12:41 Dose: 30 ml Bacitracin (Bacitracin Oint) 1 applic TOP DAILY [facility] Last Admin: 02/07/17 08:54 Dose: Not Given Benzocaine/Menthol (Cepacol Sore Throat) 1 lul PO Q3 PRN PRN Reason: Sore Throat Diphenhydramine HCl (Benadryl) 25 mg PO HS [facility] Last Admin: 02/06/17 21:25 Dose: 25 mg Docusate Sodium (Colace) 100 mg PO BID PRN PRN Reason: Constipation Docusate Sodium (Colace) 100 mg PO BID [facility] Last Admin: 02/07/17 08:54 Dose: 100 mg Enoxaparin Sodium (Lovenox) 40 mg SC DAILY [facility] PRN Reason: Protocol Last Admin: 02/07/17 08:52 Dose: 40 mg Fluconazole (Diflucan) 200 mg PO DAILY [facility] Last Admin: 02/07/17 08:52 Dose: 200 mg Hydrochlorothiazide (Microzide) 12.5 mg PO DAILY [facility] Last Admin: 02/07/17 08:53 Dose: 12.5 mg Nafcillin Sodium 2 gm/ Sodium (Chloride) 100 mls @ 100 mls/hr IVPB 0600,1200, 1800,0000 [facility] PRN Reason: Protocol Last Admin: 02/07/17 05:16 Dose: 100 mls/hr Lidocaine HCl (Xylocaine 2%) 1 applic TOP Q8H PRN PRN Reason: Pain, Mild (1-3) Last Admin: 02/04/17 21:08 Dose: 1 unit Metoprolol Tartrate (Lopressor) 25 mg PO Q12 [facility] Last Admin: 02/07/17 08:52 Dose: 25 mg Ondansetron HCl (Zofran Inj) 4 mg IVP Q6 PRN PRN Reason: Nausea/Vomiting Last Admin: 02/04/17 09:57 Dose: 4 mg Pantoprazole Sodium (Protonix Ec Tab) 40 mg PO DAILY [facility] Last Admin: 02/07/17 08:55 Dose: 40 mg Sodium Chloride ([place] Nasal [place]) 1 sprays [place] Q4 PRN PRN Reason: Nasal congestion Tramadol HCl (Ultram) 50 mg PO Q4 PRN PRN Reason: Pain, moderate (4-7) Last Admin: 02/07/17 09:40 Dose: 50 mg Zolpidem Tartrate (Ambien) 5 mg PO HS [facility] Last Admin: 02/06/17 23:37 Dose: Not Given - Labs Labs: 02/06/17 08:55 02/07/17 07:00 - Constitutional Appears: Well, Non-toxic, No Acute Distress - Extremities Exam Additional comments: RLE focused physical exam: Vasc: DP and PT pulses are palpable 2/4. CFT <3 seconds to all digits. Temperature gradient warm to cool. No pedal edema noted. Neuro: Gross protective sensation slightly diminished. Derm: Superficial ulceration measuring approximately 0.2 x 0.3 x 0.1 cm noted to plantar aspect of 2nd digit distal tuft - ulcer is noted to have a 100% granular base. No purulence or drainage noted. No erythema, no streaking, no malodor, no fluctuance, no probe to bone noted. No clinical signs of infection. Ortho: No tenderness to palpation right 2nd digit. 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 Treadwell Labs and vitals reviewed = afebrile, WBC=10.3 Ulceration cleansed with saline R 2nd digit ulceration dressed with Bacitracin + DSD Continue with local wound care Right foot wound culture final report - morg morganii ss morganii, staphylococcus aureus Continue IV abx per ID Podiatry will continue to follow patient while in house Patient is stable per podiatry standpoint Pt is to follow up with Dr. Treadwell within 1 week upon discharge
--- NOTE | 2017-02-07 10:48 | CP.PCM.PN ---
Subjective - Date & Time of Evaluation Date of Evaluation: 02/07/17 Time of Evaluation: 10:45 - Subjective Subjective: S- comfortable no pain in L knee/ difficulty breathing Objective - Vital Signs/Intake and Output Vital Signs (last 24 hours): Temp Pulse Resp BP Pulse Ox 97.9 F 84 20 138/71 95 02/07/17 09:17 02/07/17 09:17 02/07/17 09:17 02/07/17 09:17 02/07/17 09:17 - Medications Medications: Current Medications Acetaminophen (Tylenol 325mg Tab) 650 mg PO Q6 PRN PRN Reason: Fever >100.4 F Last Admin: 02/02/17 03:17 Dose: 650 mg Acetaminophen (Tylenol 325mg Tab) 650 mg PO Q6 PRN PRN Reason: Fever >100.4 F Al Hydrox/Mg Hydrox/Simethicone (Maalox Plus 30 Ml) 30 ml PO Q6 PRN PRN Reason: Indigestion / Heartburn Last Admin: 01/31/17 12:41 Dose: 30 ml Bacitracin (Bacitracin Oint) 1 applic TOP DAILY [facility] Last Admin: 02/07/17 08:54 Dose: Not Given Benzocaine/Menthol (Cepacol Sore Throat) 1 lul PO Q3 PRN PRN Reason: Sore Throat Diphenhydramine HCl (Benadryl) 25 mg PO HS [facility] Last Admin: 02/06/17 21:25 Dose: 25 mg Docusate Sodium (Colace) 100 mg PO BID PRN PRN Reason: Constipation Docusate Sodium (Colace) 100 mg PO BID [facility] Last Admin: 02/07/17 08:54 Dose: 100 mg Enoxaparin Sodium (Lovenox) 40 mg SC DAILY [facility] PRN Reason: Protocol Last Admin: 02/07/17 08:52 Dose: 40 mg Fluconazole (Diflucan) 200 mg PO DAILY [facility] Last Admin: 02/07/17 08:52 Dose: 200 mg Hydrochlorothiazide (Microzide) 12.5 mg PO DAILY [facility] Last Admin: 02/07/17 08:53 Dose: 12.5 mg Nafcillin Sodium 2 gm/ Sodium (Chloride) 100 mls @ 100 mls/hr IVPB 0600,1200, 1800,0000 [facility] PRN Reason: Protocol Last Admin: 02/07/17 05:16 Dose: 100 mls/hr Lidocaine HCl (Xylocaine 2%) 1 applic TOP Q8H PRN PRN Reason: Pain, Mild (1-3) Last Admin: 02/04/17 21:08 Dose: 1 unit Metoprolol Tartrate (Lopressor) 25 mg PO Q12 [facility] Last Admin: 02/07/17 08:52 Dose: 25 mg Ondansetron HCl (Zofran Inj) 4 mg IVP Q6 PRN PRN Reason: Nausea/Vomiting Last Admin: 02/04/17 09:57 Dose: 4 mg Pantoprazole Sodium (Protonix Ec Tab) 40 mg PO DAILY [facility] Last Admin: 02/07/17 08:55 Dose: 40 mg Sodium Chloride ([place] Nasal [place]) 1 sprays [place] Q4 PRN PRN Reason: Nasal congestion Tramadol HCl (Ultram) 50 mg PO Q4 PRN PRN Reason: Pain, moderate (4-7) Last Admin: 02/07/17 09:40 Dose: 50 mg Zolpidem Tartrate (Ambien) 5 mg PO HS [facility] Last Admin: 02/06/17 23:37 Dose: Not Given - Labs Labs: 02/06/17 08:55 02/07/17 07:00
[2017-02-07] MEDS ORDERED: Albuterol-Ipratrop 3 mg / 0.5 (3 ml) UD INH STA (11:01)
[2017-02-07] MEDS ORDERED: Oxycodone/Acetaminophen 5/325 mg Tab PO ONE (11:04)
[2017-02-07] MEDS: Alum-Mag Hydrox-Simethicone Susp (30 mL) PO PRN (11:15)
[2017-02-07 11:23] LABS: ABG ALLEN TEST YES; ARTERIAL BLOOD FLOW 2; ARTERIAL BLOOD GAS HCO3 28.6 mmol/L (21-28); ARTERIAL BLOOD GAS MODE NC; ARTERIAL BLOOD GAS O2 CAPACITY 11.9 mL/dL (16-24); ARTERIAL BLOOD GAS O2 CONTENT 11.9 ML/dL (15-23); ARTERIAL BLOOD GAS PH 7.53 (7.35-7.45); ARTERIAL BLOOD GAS PO2 83 mm/Hg (80-100); ARTERIAL BLOOD HGB O2 SAT 94.4 % (95.0-98.0); CARBOXYHEMOGLOBIN 2.8 % (0.5-1.5); HHB 0.2 % (0.0-5.0); METHEMOGLOBIN 2.6 % (0.0-3.0)
--- NOTE | 2017-02-07 11:23 | CP.PCM.PN ---
Subjective - Date & Time of Evaluation Date of Evaluation: 02/07/17 Time of Evaluation: 11:00 - Subjective Subjective: Pt seen and examined. Reported to be SOB and complaining of back pain. When seen , patient was noted to be sleeping and did not seem to be in SOB since he was breathing comfortably. When asked if he was SOB, he affirmed he does. Asked also if he has pain, he said that pain is constant on both lower back and left knee. When asked again how bad, he said 8/10. He admitted though that pain had not worsened but has been constant. Objective - Vital Signs/Intake and Output Vital Signs (last 24 hours): Temp Pulse Resp BP Pulse Ox 97.9 F 86 20 138/71 95 02/07/17 09:17 02/07/17 11:11 02/07/17 09:17 02/07/17 09:17 02/07/17 09:17 - Medications Medications: Current Medications Acetaminophen (Tylenol 325mg Tab) 650 mg PO Q6 PRN PRN Reason: Fever >100.4 F Last Admin: 02/02/17 03:17 Dose: 650 mg Acetaminophen (Tylenol 325mg Tab) 650 mg PO Q6 PRN PRN Reason: Fever >100.4 F Al Hydrox/Mg Hydrox/Simethicone (Maalox Plus 30 Ml) 30 ml PO Q6 PRN PRN Reason: Indigestion / Heartburn Last Admin: 01/31/17 12:41 Dose: 30 ml Bacitracin (Bacitracin Oint) 1 applic TOP DAILY [facility] Last Admin: 02/07/17 08:54 Dose: Not Given Benzocaine/Menthol (Cepacol Sore Throat) 1 lul PO Q3 PRN PRN Reason: Sore Throat Diphenhydramine HCl (Benadryl) 25 mg PO HS [facility] Last Admin: 02/06/17 21:25 Dose: 25 mg Docusate Sodium (Colace) 100 mg PO BID PRN PRN Reason: Constipation Docusate Sodium (Colace) 100 mg PO BID [facility] Last Admin: 02/07/17 08:54 Dose: 100 mg Enoxaparin Sodium (Lovenox) 40 mg SC DAILY [facility] PRN Reason: Protocol Last Admin: 02/07/17 08:52 Dose: 40 mg Fluconazole (Diflucan) 200 mg PO DAILY [facility] Last Admin: 02/07/17 08:52 Dose: 200 mg Hydrochlorothiazide (Microzide) 12.5 mg PO DAILY [facility] Last Admin: 02/07/17 08:53 Dose: 12.5 mg Nafcillin Sodium 2 gm/ Sodium (Chloride) 100 mls @ 100 mls/hr IVPB 0600,1200, 1800,0000 [facility] PRN Reason: Protocol Last Admin: 02/07/17 05:16 Dose: 100 mls/hr Lidocaine HCl (Xylocaine 2%) 1 applic TOP Q8H PRN PRN Reason: Pain, Mild (1-3) Last Admin: 02/04/17 21:08 Dose: 1 unit Metoprolol Tartrate (Lopressor) 25 mg PO Q12 [facility] Last Admin: 02/07/17 08:52 Dose: 25 mg Ondansetron HCl (Zofran Inj) 4 mg IVP Q6 PRN PRN Reason: Nausea/Vomiting Last Admin: 02/04/17 09:57 Dose: 4 mg Pantoprazole Sodium (Protonix Ec Tab) 40 mg PO DAILY [facility] Last Admin: 02/07/17 08:55 Dose: 40 mg Sodium Chloride ([place] Nasal [place]) 1 sprays [place] Q4 PRN PRN Reason: Nasal congestion Tramadol HCl (Ultram) 50 mg PO Q4 PRN PRN Reason: Pain, moderate (4-7) Last Admin: 02/07/17 09:40 Dose: 50 mg Zolpidem Tartrate (Ambien) 5 mg PO HS [facility] Last Admin: 02/06/17 23:37 Dose: Not Given - Labs Labs: 02/06/17 08:55 02/07/17 07:00 - Constitutional Appears: No Acute Distress - Head Exam Head Exam: ATRAUMATIC - Eye Exam Eye Exam: absent: Scleral icterus - ENT Exam ENT Exam: Mucous Membranes Moist - Neck Exam Neck Exam: absent: Meningismus - Respiratory Exam Respiratory Exam: absent: Rhonchi, Wheezes, Respiratory Distress - Cardiovascular Exam Cardiovascular Exam: REGULAR RHYTHM, +S1, +S2 - GI/Abdominal Exam GI & Abdominal Exam: Soft. absent: Tenderness - Rectal Exam Rectal Exam: absent: Deferred - Extremities Exam Extremities Exam: Joint Swelling (left knee) - Back Exam Back Exam: absent: tenderness - Neurological Exam Neurological Exam: Alert, Oriented x3 - Psychiatric Exam Psychiatric exam: Normal Affect - Skin Skin Exam: Dry, Intact Assessment and Plan - Assessment and Plan (Free Text) Assessment: 76 yo male with history of HTN, metastatic [place] Carcinoma to lungs and liver and post left TKR was admitted because of Sepsis and Neutropenic Fever probably secondary to Pneumonia and infected arthritis of the left knee. He was put On IV Vanco and Zosyn and had I&D of the effusion of the left knee. He was transferred to TCU for continuation of IV antibiotics for a total of at least 21 days. 1. SOB O2 sat on room air: 98% Rpt CXray (02/05/17): no change from previous CT of chest : no acute infiltrate however noted multiple pulm nodules and pleural based soft tissue mass on IV Nafcillin Duoneb via nebulizer ABG 2. Atrial Fibrillation rate controlled continue Metoprolol 3. Pancytopenia secondary to chemotherapy Neutropenia resolved with [facility] - Dr Donny Logan on consult 4. Metastatic [place] Carcinoma Oncology on consult chemo on hold during IV antibiotics 5. Left knee effusion/ suspected septic arthritis Ortho consult : Dr Del Angel Had I&D Cultures were sent on IV Nafcillin 6. Hypertension, chronic BP stable cont Metoprolol 7. DVT prophylaxis on Lovenox
[2017-02-08] MEDS: Nafcillin 2 GM in Sodium Chloride 0.9% 100 ML IVPB SCH ×3 (05:15→17:05)
[2017-02-08] MEDS: Enoxaparin 40 mg Syringe SC SCH (08:27)
[2017-02-08] MEDS: Bacitracin OINT 15GM TOP SCH (08:27)
[2017-02-08] MEDS: Pantoprazole 40 mg EC Tab PO SCH (08:29)
--- NOTE | 2017-02-08 09:31 | CP.PCM.PN ---
Subjective - Date & Time of Evaluation Date of Evaluation: 02/08/17 Time of Evaluation: 09:45 - Subjective Subjective: Podiatry Progress Note - Dr. Treadwell 76 y/o male seen at bedside in TCU for right foot 2nd digit plantar ulceration. Patient is seen laying in bed resting comfortably at this time. Pt states he is doing ok but feels very tired. Pt states he is having knee and back pain still but denies any foot pain. Patient denies any acute overnight events. Pt states he will be starting chemo tomorrow in the infusion center. Patient denies F/C/N/ V/SOB/calf pain. Pt has no other pedal complaints at this time. Objective - Vital Signs/Intake and Output Vital Signs (last 24 hours): Temp Pulse Resp BP Pulse Ox 97.3 F L 86 20 129/75 96 02/08/17 08:31 02/08/17 08:31 02/08/17 08:31 02/08/17 08:31 02/08/17 08:31 - Medications Medications: Current Medications Acetaminophen (Tylenol 325mg Tab) 650 mg PO Q6 PRN PRN Reason: Fever >100.4 F Last Admin: 02/02/17 03:17 Dose: 650 mg Acetaminophen (Tylenol 325mg Tab) 650 mg PO Q6 PRN PRN Reason: Fever >100.4 F Al Hydrox/Mg Hydrox/Simethicone (Maalox Plus 30 Ml) 30 ml PO Q6 PRN PRN Reason: Indigestion / Heartburn Last Admin: 02/07/17 11:15 Dose: 30 ml Bacitracin (Bacitracin Oint) 1 applic TOP DAILY [facility] Last Admin: 02/08/17 08:27 Dose: 1 applic Benzocaine/Menthol (Cepacol Sore Throat) 1 lul PO Q3 PRN PRN Reason: Sore Throat Diphenhydramine HCl (Benadryl) 25 mg PO HS [facility] Last Admin: 02/07/17 21:44 Dose: 25 mg Docusate Sodium (Colace) 100 mg PO BID PRN PRN Reason: Constipation Docusate Sodium (Colace) 100 mg PO BID [facility] Last Admin: 02/08/17 08:28 Dose: 100 mg Enoxaparin Sodium (Lovenox) 40 mg SC DAILY [facility] PRN Reason: Protocol Last Admin: 02/08/17 08:27 Dose: 40 mg Fluconazole (Diflucan) 200 mg PO DAILY [facility] Last Admin: 02/08/17 08:28 Dose: 200 mg Hydrochlorothiazide (Microzide) 12.5 mg PO DAILY [facility] Last Admin: 02/08/17 08:29 Dose: 12.5 mg Nafcillin Sodium 2 gm/ Sodium (Chloride) 100 mls @ 100 mls/hr IVPB 0600,1200, 1800,0000 [facility] PRN Reason: Protocol Last Admin: 02/08/17 05:15 Dose: 100 mls/hr Lidocaine HCl (Xylocaine 2%) 1 applic TOP Q8H PRN PRN Reason: Pain, Mild (1-3) Last Admin: 02/04/17 21:08 Dose: 1 unit Metoprolol Tartrate (Lopressor) 25 mg PO Q12 [facility] Last Admin: 02/08/17 08:28 Dose: 25 mg Ondansetron HCl (Zofran Inj) 4 mg IVP Q6 PRN PRN Reason: Nausea/Vomiting Last Admin: 02/04/17 09:57 Dose: 4 mg Pantoprazole Sodium (Protonix Ec Tab) 40 mg PO DAILY [facility] Last Admin: 02/08/17 08:29 Dose: 40 mg Sodium Chloride ([place] Nasal [place]) 1 sprays [place] Q4 PRN PRN Reason: Nasal congestion Tramadol HCl (Ultram) 50 mg PO Q4 PRN PRN Reason: Pain, moderate (4-7) Last Admin: 02/08/17 08:31 Dose: 50 mg Zolpidem Tartrate (Ambien) 5 mg PO HS [facility] Last Admin: 02/07/17 23:07 Dose: 5 mg - Labs Labs: 02/06/17 08:55 02/07/17 07:00 - Constitutional Appears: Well, Non-toxic, No Acute Distress - Extremities Exam Additional comments: RLE focused physical exam: Vasc: DP and PT pulses are palpable 2/4. CFT <3 seconds to all digits. Temperature gradient warm to cool. No pedal edema noted. Neuro: Gross protective sensation slightly diminished Derm: Ulceration to R plantar 2nd digit appears fully healed at this time. Hyperkeratotic tissue overlying former ulceration site. Upon removal, no breaks in skin, no open lesion, no purulence or drainage noted. No erythema, no streaking, no malodor, no fluctuance, no probe to bone noted. No clinical signs of infection. Ortho: No tenderness to palpation right 2nd digit. 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 - Neurological Exam Neurological Exam: Alert, Awake, Oriented x3 - Psychiatric Exam Psychiatric exam: Normal Affect, Normal Mood Assessment and Plan - Assessment and Plan (Free Text) Assessment: 76 y/o male patient with right 2nd digit plantar ulceration, fully healed Plan: Patient seen and evaluated at bedside Discussed plan in detail with attending Dr. Treadwell Labs and vitals reviewed = afebrile, WBC=10.3 Ulceration cleansed with saline Hyperkeratotic tissue overlying R plantar 2nd digit excisionally debrided down to healthy skin using sterile #15 blade Pt tolerated procedure without incident No dressing needed to R foot Continue IV abx per ID Podiatry will continue to follow patient while in house Patient is stable per podiatry standpoint Pt is to follow up with Dr. Treadwell within 1 week upon discharge
[2017-02-08 21:27] VITALS: O2SAT 95
[2017-02-09] MEDS: Nafcillin 2 GM in Sodium Chloride 0.9% 100 ML IVPB SCH ×2 (00:52→04:59)
--- NOTE | 2017-02-09 07:57 | CP.PCM.DIS ---
<JayRamona - Last Filed: 02/09/17 13:29> Provider - Provider Date of Admission: 01/30/17 15:34 Attending physician: Holley Campoverde DO Consults: Infectious disease consult Ortho consult Pulmonology consult Heme/onc consult Time Spent in preparation of Discharge (in minutes): 20 Hospital Course - Lab Results Lab Results: Micro Results 01/30/17 16:45 Blood Blood Culture - Final NO GROWTH AFTER 5 DAYS 01/30/17 16:45 Blood Gram Stain - Final TEST NOT PERFORMED 01/30/17 17:00 Blood Blood Culture - Final NO GROWTH AFTER 5 DAYS 01/30/17 17:00 Blood Gram Stain - Final TEST NOT PERFORMED Most Recent Lab Values WBC 10.3 K/uL (4.8-10.8) 02/06/17 08:55 RBC 3.41 Mil/uL (4.40-5.90) L 02/06/17 08:55 Hgb 8.6 g/dL (12.0-18.0) L 02/06/17 08:55 Hct 25.8 % (35.0-51.0) L 02/06/17 08:55 MCV 75.6 fl (80.0-94.0) L 02/06/17 08:55 MCH 25.3 pg (27.0-31.0) L 02/06/17 08:55 MCHC 33.5 g/dL (33.0-37.0) 02/06/17 08:55 RDW 19.4 % (11.5-14.5) H 02/06/17 08:55 Plt Count 401 K/uL (130-400) H D 02/06/17 08:55 MPV 8.0 fl (7.2-11.7) 02/06/17 08:55 Neut % (Auto) 77.5 % (50.0-75.0) H 02/06/17 08:55 Lymph % (Auto) 13.0 % (20.0-40.0) L 02/06/17 08:55 [place] % (Auto) 8.8 % (0.0-10.0) 02/06/17 08:55 Eos % (Auto) 0.0 % (0.0-4.0) 02/06/17 08:55 Baso % (Auto) 0.7 % (0.0-2.0) 02/06/17 08:55 Neut # 8.0 K/uL (1.8-7.0) H 02/06/17 08:55 Lymph # 1.3 K/uL (1.0-4.3) 02/06/17 08:55 [place] # 0.9 K/uL (0.0-0.8) H 02/06/17 08:55 Eos # 0.0 K/uL (0.0-0.7) 02/06/17 08:55 Baso # 0.1 K/uL (0.0-0.2) 02/06/17 08:55 Neutrophils % (Manual) 61 % (42-75) 01/31/17 07:20 Band Neutrophils % 8 % (0-2) H 01/31/17 07:20 Lymphocytes % (Manual) 11 % (20-50) L 01/31/17 07:20 Monocytes % (Manual) 15 % (0-10) H 01/31/17 07:20 Metamyelocytes % 2 % (0-0) H 01/31/17 07:20 Myelocytes % 3 % (0-0) H 01/31/17 07:20 Toxic Granulation Present 01/31/17 07:20 Platelet Estimate Normal (NORMAL) 01/31/17 07:20 Hypochromasia (manual) Slight 01/31/17 07:20 Anisocytosis (manual) Slight 01/31/17 07:20 ESR 107 mm/hr (0-20) H 02/05/17 05:30 pCO2 33 mm/Hg (35-45) L 02/07/17 11:11 pO2 83 mm/Hg (80-100) 02/07/17 11:11 HCO3 28.6 mmol/L (21-28) H 02/07/17 11:11 ABG pH 7.53 (7.35-7.45) H 02/07/17 11:11 ABG Total CO2 28.6 mmol/L (22-28) H 02/07/17 11:11 ABG O2 Saturation 99.8 % (95-98) H 02/07/17 11:11 ABG O2 Content 11.9 ML/dL (15-23) L 02/07/17 11:11 ABG Base Excess 4.8 mmol/L (-2.0-3.0) H 02/07/17 11:11 ABG Hemoglobin 8.9 g/dL (11.7-17.4) L 02/07/17 11:11 ABG Carboxyhemoglobin 2.8 % (0.5-1.5) H 02/07/17 11:11 POC ABG HHb (Measured) 0.2 % (0.0-5.0) 02/07/17 11:11 ABG Methemoglobin 2.6 % (0.0-3.0) 02/07/17 11:11 ABG O2 Capacity 11.9 mL/dL (16-24) L 02/07/17 11:11 Shashi Test Yes 02/07/17 11:11 A-a O2 Difference 75.0 mm/Hg 02/07/17 11:11 Hgb O2 Saturation 94.4 % (95.0-98.0) L 02/07/17 11:11 Liter Flow 2 02/07/17 11:11 Vent Mode Nc 02/07/17 11:11 FiO2 28.0 % 02/07/17 11:11 Sodium 133 mmol/l (132-148) 02/07/17 07:00 Potassium 3.6 MMOL/L (3.6-5.0) 02/07/17 07:00 Chloride 95 mmol/L (98-107) L 02/07/17 07:00 Carbon Dioxide 30 mmol/L (22-30) 02/07/17 07:00 Anion Gap 12 (10-20) 02/07/17 07:00 BUN 18 mg/dl (9-20) 02/07/17 07:00 Creatinine 1.1 mg/dL (0.8-1.5) 02/07/17 07:00 Est GFR ( Amer) > 60 02/07/17 07:00 Est GFR (Non-Af Amer) > 60 02/07/17 07:00 Random Glucose 96 mg/dL (75-110) 02/07/17 07:00 Calcium 10.1 mg/dL (8.4-10.2) 02/07/17 07:00 Magnesium 1.3 MG/DL (1.6-2.3) L 02/07/17 07:00 Total Bilirubin 1.3 mg/dl (0.2-1.3) 02/06/17 08:55 AST 60 U/L (17-59) H D 02/06/17 08:55 ALT 45 U/L (21-72) 02/06/17 08:55 Alkaline Phosphatase 82 U/L (38-126) 02/06/17 08:55 C-React Prot High Sens > 15.00 mg/L (1.00-3.00) H 02/05/17 05:30 Total Protein 6.0 G/DL (6.3-8.2) L 02/06/17 08:55 Albumin 3.0 g/dL (3.5-5.0) L 02/06/17 08:55 Globulin 3.0 gm/dL (2.2-3.9) 02/06/17 08:55 Albumin/Globulin Ratio 1.0 (1.0-2.1) 02/06/17 08:55 Procalcitonin 0.27 NG/ML (0.19-0.49) 02/04/17 14:15 - Hospital Course Hospital Course: 76 y/o male with 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 Patient was found to have large effusion of his left knee , small purulent lesion to right hand index finger, and purulent wound to right foot second toe. He was diagnosed with neutropenic fever and sepsis in Med/Surg unit, placed on reverse isolation and started on empiric broad spectrum antibiotics, IV Vanco and Zosyn , given granix and transfusion. ID, ortho, pulmonary and heme/onc consulted during admission and will continue to follow in Med/Surg unit. Pt now 10 days s/ p left knee arthroscopy with I&D with Dr. Del Angel. 3 positive knee cultures came back (+) for MSSA, for which patient was then switched from empiric therapy to IV Nafcillin. Pt will receive a total of 6 weeks IV abx per Dr. Del Angel with knee incision left open to air. Pt reports decreased pain and discomfort to his left knee, and his foot ulcer has fully healed. Pt is being followed by physical therapy at this time. At present he is hemodynamically stable. Pt will be transferred to Med/Surg unit for initiation of chemotherapy. 1.Sepsis resolved 2.Neutropenic fever resolved 3. Question of Pneumonia CT of chest : no acute infiltrate however noted multiple pulmonary nodules and pleural based soft tissue mass continue IV Nafcillin Blood c/s: negative Dr Rodriguez on board Mycoplasma ag IG + however , IgM pending Strep ag negative 4. Atrial Fibrillation HR controlled continue Metoprolol 5. Pancytopenia secondary to chemotherapy Neutropenia resolved with Granix Heme/Oncology - Dr Donny Logan on consult 6. Metastatic Raúl Carcinoma Oncology on consult Chemo to begin today in med/surg unit 7. Left knee effusion/ suspected septic arthritis Ortho consult Dr Del Angel on board 10 days s/p L knee arthroscopy with I&D 3 cultures + for MSSA on IV Nafcillin for minimum of 6 weeks 8.Hypertension, chronic BP stable cont Metoprolol 9. DVT prophylaxis on Lovenox 9. Shortness of breath asymptomatic at this time likely secondary to pulmonary nodules and pleural soft tissue mass seen on chest CT Discharge Exam - Head Exam Head Exam: ATRAUMATIC, NORMOCEPHALIC - Eye Exam Eye Exam: EOMI, Normal appearance, PERRL - ENT Exam ENT Exam: Mucous Membranes Moist, Normal Exam - Respiratory Exam Respiratory Exam: NORMAL BREATHING PATTERN, UNREMARKABLE Additional comments: absent for wheezing, rales or rhonchi. No respiratory distress - Cardiovascular Exam Cardiovascular Exam: REGULAR RHYTHM, +S1, +S2 Additional comments: no murmur, no gallop - GI/Abdominal Exam GI & Abdominal Exam: Normal Bowel Sounds, Soft Additional comments: non-tender - Extremities Exam Extremities exam: joint swelling Additional comments: joint swelling noted to L knee, resolving - Back Exam Back exam: tenderness Additional comments: tenderness upon trunk flexion and extension in bed - Neurological Exam Neurological exam: Alert, Oriented x3 - Psychiatric Exam Psychiatric exam: Normal Affect, Normal Mood - Skin Skin Exam: Intact Additional comments: ulceration to R 2nd digit fully healed Discharge Plan - Follow Up Plan Condition: GOOD Disposition: Trans to Other Acute Care Hosp Instructions: Community Acquired Pneumonia (DC), Fall Prevention (DC) Additional Instructions: d/c pt to Acute Care ( [address] [place] [address]) for chemotherapy Referrals: Mina Del Angel III, MD [Staff Provider] - Chris Logan MD [Staff Provider] - Zaria Logan MD [Staff Provider] - Wagner Treadwell DPM [Staff Provider] - Nathan Rivera MD [Staff Provider] - <Xena Morales - Last Filed: 02/09/17 15:49> Provider - Provider Date of Admission: 01/30/17 15:34 Attending physician: Holley Campoverde DO Hospital Course - Lab Results Lab Results: Micro Results 01/30/17 16:45 Blood Blood Culture - Final NO GROWTH AFTER 5 DAYS 01/30/17 16:45 Blood Gram Stain - Final TEST NOT PERFORMED 01/30/17 17:00 Blood Blood Culture - Final NO GROWTH AFTER 5 DAYS 01/30/17 17:00 Blood Gram Stain - Final TEST NOT PERFORMED Most Recent Lab Values WBC 10.3 K/uL (4.8-10.8) 02/06/17 08:55 RBC 3.41 Mil/uL (4.40-5.90) L 02/06/17 08:55 Hgb 8.6 g/dL (12.0-18.0) L 02/06/17 08:55 Hct 25.8 % (35.0-51.0) L 02/06/17 08:55 MCV 75.6 fl (80.0-94.0) L 02/06/17 08:55 MCH 25.3 pg (27.0-31.0) L 02/06/17 08:55 MCHC 33.5 g/dL (33.0-37.0) 02/06/17 08:55 RDW 19.4 % (11.5-14.5) H 02/06/17 08:55 Plt Count 401 K/uL (130-400) H D 02/06/17 08:55 MPV 8.0 fl (7.2-11.7) 02/06/17 08:55 Neut % (Auto) 77.5 % (50.0-75.0) H 02/06/17 08:55 Lymph % (Auto) 13.0 % (20.0-40.0) L 02/06/17 08:55 [place] % (Auto) 8.8 % (0.0-10.0) 02/06/17 08:55 Eos % (Auto) 0.0 % (0.0-4.0) 02/06/17 08:55 Baso % (Auto) 0.7 % (0.0-2.0) 02/06/17 08:55 Neut # 8.0 K/uL (1.8-7.0) H 02/06/17 08:55 Lymph # 1.3 K/uL (1.0-4.3) 02/06/17 08:55 [place] # 0.9 K/uL (0.0-0.8) H 02/06/17 08:55 Eos # 0.0 K/uL (0.0-0.7) 02/06/17 08:55 Baso # 0.1 K/uL (0.0-0.2) 02/06/17 08:55 Neutrophils % (Manual) 61 % (42-75) 01/31/17 07:20 Band Neutrophils % 8 % (0-2) H 01/31/17 07:20 Lymphocytes % (Manual) 11 % (20-50) L 01/31/17 07:20 Monocytes % (Manual) 15 % (0-10) H 01/31/17 07:20 Metamyelocytes % 2 % (0-0) H 01/31/17 07:20 Myelocytes % 3 % (0-0) H 01/31/17 07:20 Toxic Granulation Present 01/31/17 07:20 Platelet Estimate Normal (NORMAL) 01/31/17 07:20 Hypochromasia (manual) Slight 01/31/17 07:20 Anisocytosis (manual) Slight 01/31/17 07:20 ESR 107 mm/hr (0-20) H 02/05/17 05:30 pCO2 33 mm/Hg (35-45) L 02/07/17 11:11 pO2 83 mm/Hg (80-100) 02/07/17 11:11 HCO3 28.6 mmol/L (21-28) H 02/07/17 11:11 ABG pH 7.53 (7.35-7.45) H 02/07/17 11:11 ABG Total CO2 28.6 mmol/L (22-28) H 02/07/17 11:11 ABG O2 Saturation 99.8 % (95-98) H 02/07/17 11:11 ABG O2 Content 11.9 ML/dL (15-23) L 02/07/17 11:11 ABG Base Excess 4.8 mmol/L (-2.0-3.0) H 02/07/17 11:11 ABG Hemoglobin 8.9 g/dL (11.7-17.4) L 02/07/17 11:11 ABG Carboxyhemoglobin 2.8 % (0.5-1.5) H 02/07/17 11:11 POC ABG HHb (Measured) 0.2 % (0.0-5.0) 02/07/17 11:11 ABG Methemoglobin 2.6 % (0.0-3.0) 02/07/17 11:11 ABG O2 Capacity 11.9 mL/dL (16-24) L 02/07/17 11:11 Shashi Test Yes 02/07/17 11:11 A-a O2 Difference 75.0 mm/Hg 02/07/17 11:11 Hgb O2 Saturation 94.4 % (95.0-98.0) L 02/07/17 11:11 Liter Flow 2 02/07/17 11:11 Vent Mode Nc 02/07/17 11:11 FiO2 28.0 % 02/07/17 11:11 Sodium 133 mmol/l (132-148) 02/07/17 07:00 Potassium 3.6 MMOL/L (3.6-5.0) 02/07/17 07:00 Chloride 95 mmol/L (98-107) L 02/07/17 07:00 Carbon Dioxide 30 mmol/L (22-30) 02/07/17 07:00 Anion Gap 12 (10-20) 02/07/17 07:00 BUN 18 mg/dl (9-20) 02/07/17 07:00 Creatinine 1.1 mg/dL (0.8-1.5) 02/07/17 07:00 Est GFR ( Amer) > 60 02/07/17 07:00 Est GFR (Non-Af Amer) > 60 02/07/17 07:00 Random Glucose 96 mg/dL (75-110) 02/07/17 07:00 Calcium 10.1 mg/dL (8.4-10.2) 02/07/17 07:00 Magnesium 1.3 MG/DL (1.6-2.3) L 02/07/17 07:00 Total Bilirubin 1.3 mg/dl (0.2-1.3) 02/06/17 08:55 AST 60 U/L (17-59) H D 02/06/17 08:55 ALT 45 U/L (21-72) 02/06/17 08:55 Alkaline Phosphatase 82 U/L (38-126) 02/06/17 08:55 C-React Prot High Sens > 15.00 mg/L (1.00-3.00) H 02/05/17 05:30 Total Protein 6.0 G/DL (6.3-8.2) L 02/06/17 08:55 Albumin 3.0 g/dL (3.5-5.0) L 02/06/17 08:55 Globulin 3.0 gm/dL (2.2-3.9) 02/06/17 08:55 Albumin/Globulin Ratio 1.0 (1.0-2.1) 02/06/17 08:55 Procalcitonin 0.27 NG/ML (0.19-0.49) 02/04/17 14:15 Attending/Attestation - Attestation I have personally seen and examined this patient.: Yes I have fully participated in the care of the patient.: Yes I have reviewed all pertinent clinical information, including history, physical exam and plan: Yes Notes (Text): 1. Left knee effusion /Infection, improved Ortho consulted Dr Del Angel 3 cultures + for MSSA on IV Nafcillin for minimum of 6 weeks ID consulted 2. Pneumonia ruled out CT of chest : no acute infiltrate however noted multiple pulmonary nodules and pleural based soft tissue mass Blood c/s: negative Dr Rodriguez on board Mycoplasma ag IG + however , IgM neg Strep ag negative 3. Pancytopenia secondary to chemotherapy, improved Neutropenia resolved with Granix Heme/Oncology - Dr Donny Logan on consult Transfuse prn 4. Metastatic Raúl Carcinoma Oncology on consult Chemo to begin today - will transfer to Med Surg 5.Hypertension, chronic BP stable cont Metoprolol 6. Right 2nd Toe Ulcer, resolved Podiatry consulted pt on IV abx DVT prophylaxis on Lovenox
[2017-02-09] MEDS: Bacitracin OINT 15GM TOP SCH (08:00)
[2017-02-09] MEDS: Enoxaparin 40 mg Syringe SC SCH (08:01)
[2017-02-09] MEDS: Pantoprazole 40 mg EC Tab PO SCH (08:01)
[2017-02-09 08:04] VITALS: BP 143/74; PULSE 86
[2017-02-09 08:43] VITALS: TEMP 97.3
--- NOTE | 2017-02-09 09:05 | CP.PCM.PN ---
Subjective - Date & Time of Evaluation Date of Evaluation: 02/09/17 Time of Evaluation: 09:02 - Subjective Subjective: Patient still complaining of left knee pain, but says that it is better. Patient to be transferred for chemo. Objective - Vital Signs/Intake and Output Vital Signs (last 24 hours): Temp Pulse Resp BP Pulse Ox 97.3 F L 86 20 143/74 95 02/09/17 08:42 02/09/17 08:42 02/09/17 08:42 02/09/17 08:42 02/09/17 08:42 - Medications Medications: Current Medications Acetaminophen (Tylenol 325mg Tab) 650 mg PO Q6 PRN PRN Reason: Fever >100.4 F Last Admin: 02/02/17 03:17 Dose: 650 mg Acetaminophen (Tylenol 325mg Tab) 650 mg PO Q6 PRN PRN Reason: Fever >100.4 F Al Hydrox/Mg Hydrox/Simethicone (Maalox Plus 30 Ml) 30 ml PO Q6 PRN PRN Reason: Indigestion / Heartburn Last Admin: 02/07/17 11:15 Dose: 30 ml Bacitracin (Bacitracin Oint) 1 applic TOP DAILY [facility] Last Admin: 02/09/17 08:00 Dose: 1 applic Benzocaine/Menthol (Cepacol Sore Throat) 1 lul PO Q3 PRN PRN Reason: Sore Throat Diphenhydramine HCl (Benadryl) 25 mg PO HS [facility] Last Admin: 02/08/17 21:48 Dose: 25 mg Docusate Sodium (Colace) 100 mg PO BID PRN PRN Reason: Constipation Docusate Sodium (Colace) 100 mg PO BID [facility] Last Admin: 02/09/17 08:00 Dose: 100 mg Enoxaparin Sodium (Lovenox) 40 mg SC DAILY [facility] PRN Reason: Protocol Last Admin: 02/09/17 08:01 Dose: 40 mg Fluconazole (Diflucan) 200 mg PO DAILY [facility] Last Admin: 02/09/17 08:01 Dose: 200 mg Hydrochlorothiazide (Microzide) 12.5 mg PO DAILY [facility] Last Admin: 02/09/17 08:01 Dose: 12.5 mg Nafcillin Sodium 2 gm/ Sodium (Chloride) 100 mls @ 100 mls/hr IVPB 0600,1200, 1800,0000 [facility] PRN Reason: Protocol Last Admin: 02/09/17 04:59 Dose: 100 mls/hr Lidocaine HCl (Xylocaine 2%) 1 applic TOP Q8H PRN PRN Reason: Pain, Mild (1-3) Last Admin: 02/04/17 21:08 Dose: 1 unit Metoprolol Tartrate (Lopressor) 25 mg PO Q12 [facility] Last Admin: 02/09/17 08:01 Dose: 25 mg Ondansetron HCl (Zofran Inj) 4 mg IVP Q6 PRN PRN Reason: Nausea/Vomiting Last Admin: 02/04/17 09:57 Dose: 4 mg Pantoprazole Sodium (Protonix Ec Tab) 40 mg PO DAILY [facility] Last Admin: 02/09/17 08:01 Dose: 40 mg Sodium Chloride ([place] Nasal [place]) 1 sprays [place] Q4 PRN PRN Reason: Nasal congestion Tramadol HCl (Ultram) 50 mg PO Q4 PRN PRN Reason: Pain, moderate (4-7) Last Admin: 02/08/17 08:31 Dose: 50 mg Zolpidem Tartrate (Ambien) 5 mg PO HS [facility] Last Admin: 02/08/17 21:48 Dose: 5 mg - Labs Labs: 02/06/17 08:55 02/07/17 07:00 - Extremities Exam Additional comments: Left knee: dressing removed, open to air. Incisions clean/dry/intact. No erythema. Improved joint effusion, now small. No erythema, not warm. Improving AROM, much less pain with ROM. non tender to knee. Calves soft NT neg homans + ROM toes/ankle, sensation intact, +DP/PT pulses Assessment and Plan (1) Knee effusion, left Assessment & Plan: POD#10 s/p left knee arthroscopy/I&D -3 of cx +MSSA from left knee, others negative -minimum total 6 weeks IV antibiotics indicated per Dr. Del Angel -will monitor -incisions open to air -continue PT/OT -d/w Dr. Del Angel, agrees with above Status: Acute
== END 2017-02-09 09:23 | disposition short-term general hospital (02) | DRG 548 ==
LOC: H.TCU 15:34
PROVIDERS: ADMIT Student in an Organized Health Care Education/Training Program; ATTEND Student in an Organized Health Care Education/Training Program
PROC: 3E03329 Introduction of Other Anti-infective into Peripheral Vein, Percutaneous Approach (ICD-10-PCS; principal; 2017-01-30)
PROC: F07Z9FZ Gait Training/Functional Ambulation Treatment using Assistive, Adaptive, Supportive or Protective Equipment (ICD-10-PCS; 2017-01-30)
PROC: F08Z4FZ Home Management Treatment using Assistive, Adaptive, Supportive or Protective Equipment (ICD-10-PCS; 2017-01-31)
PROC: F07M6FZ Therapeutic Exercise Treatment of Musculoskeletal System - Whole Body using Assistive, Adaptive, Supportive or Protective Equipment (ICD-10-PCS; 2017-01-31)
DX: M00.9 Pyogenic arthritis, unspecified (principal); D61.810 Antineoplastic chemotherapy induced pancytopenia; C78.01 Secondary malignant neoplasm of right lung; C78.02 Secondary malignant neoplasm of left lung; C78.7 Secondary malignant neoplasm of liver and intrahepatic bile duct; L03.116 Cellulitis of left lower limb; I48.91 Unspecified atrial fibrillation; L97.519 Non-pressure chronic ulcer of other part of right foot with unspecified severity; T45.1X5A Adverse effect of antineoplastic and immunosuppressive drugs, initial encounter; I10 Essential (primary) hypertension; M17.12 Unilateral primary osteoarthritis, left knee; Z96.652 Presence of left artificial knee joint; Z85.821 Personal history of Merkel cell carcinoma; G47.00 Insomnia, unspecified; H91.90 Unspecified hearing loss, unspecified ear; Z92.21 Personal history of antineoplastic chemotherapy; Z87.891 Personal history of nicotine dependence

== ENCOUNTER 2017-02-09 08:33 | Inpatient (IN) | payer MEDICARE, OTHER ==
[2017-02-09 10:09] VITALS: BMI 31.0
[2017-02-09] MEDS ORDERED: Alum-Mag Hydrox-Simethicone Susp (30 mL) PO PRN (10:38)
[2017-02-09] MEDS ORDERED: Nasal Spray(Ocean spray) NAS PRN (10:38)
[2017-02-09] MEDS ORDERED: Lidocaine 2% GEL TOP PRN (10:38)
--- NOTE | 2017-02-09 10:46 | CP.PCM.CON ---
History of Present Illness - History of Present Illness History of Present Illness: Podiatry Consult Note - Dr. Treadwell Podiatry has been following patient while in house. 76 y/o male seen at bedside for right foot 2nd digit plantar ulceration that is resolving. Patient is seen laying in bed resting comfortably at this time. Pt states still reports having knee and back pain still but denies any foot pain. Patient denies any acute overnight events. Pt states he will be starting chemo tomorrow in the infusion center. Patient denies F/C/N/V/SOB/calf pain. Pt has no other pedal complaints at this time. Past Patient History - Infectious Disease Hx of Infectious Diseases: None - Tetanus Immunizations Tetanus Immunization: Unknown - Past Medical History & Family History Past Medical History?: Yes - Past Social History Smoking Status: Former Smoker - CARDIAC Hx Cardiac Disorders: Yes Hx Hypertension: Yes - PULMONARY Hx Respiratory Disorders: Yes Hx Lung Cancer: Yes - NEUROLOGICAL Hx Neurological Disorder: No - HEENT Hx HEENT Problems: Yes Other/Comment: Significant hearing loss. 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 - MUSCULOSKELETAL/RHEUMATOLOGICAL Hx Falls: Yes - GASTROINTESTINAL Hx Gastrointestinal Disorders: Yes Hx Gastritis: Yes - GENITOURINARY/GYNECOLOGICAL Hx Genitourinary Disorders: No - PSYCHIATRIC Hx Anxiety: Yes Hx Substance Use: No Other/Comment: Insomnia. - SURGICAL HISTORY Hx Arthroscopy: Yes (left knee) Hx Orthopedic Surgery: Yes (left knee replacement 11/03) Other/Comment: Excision of tumor on the scalp. Chest tube placement for pleural effusion followed by pleurodesis. right fourth toe amputation - ANESTHESIA Hx Anesthesia: Yes Hx Anesthesia Reactions: No Hx Malignant Hyperthermia: No Meds Allergies/Adverse Reactions: Allergies Allergy/AdvReac Type Severity Reaction Status Date / Time No Known Allergies Allergy Verified 01/30/17 15:30 - Medications Medications: Current Medications Acetaminophen (Tylenol 325mg Tab) 650 mg PO Q6 PRN PRN Reason: Fever >100.4 F Acetaminophen (Tylenol 325mg Tab) 650 mg PO Q6 PRN PRN Reason: Fever >100.4 F Al Hydrox/Mg Hydrox/Simethicone (Maalox Plus 30 Ml) 30 ml PO Q6 PRN PRN Reason: Indigestion / Heartburn Bacitracin (Bacitracin Oint) 1 applic TOP DAILY [facility] Diphenhydramine HCl (Benadryl) 25 mg PO HS [facility] Docusate Sodium (Colace) 100 mg PO BID [facility] Enoxaparin Sodium (Lovenox) 40 mg SC DAILY [facility] PRN Reason: Protocol Fluconazole (Diflucan) 200 mg PO DAILY [facility] PRN Reason: Protocol Home Med (Nafcillin In Dextrose,Iso-Osm [Nafcillin 2 Gm/ 100 Ml Inj]) 2 gm IV Q6 [place] Hydrochlorothiazide (Hydrodiuril) 25 mg PO DAILY [facility] Lidocaine HCl (Xylocaine 2%) 1 applic TOP Q8H PRN PRN Reason: Pain, Mild (1-3) Metoprolol Tartrate (Lopressor) 25 mg PO Q12 [facility] Ondansetron HCl (Zofran Inj) 4 mg IVP Q6 PRN PRN Reason: Nausea/Vomiting Pantoprazole Sodium (Protonix Ec Tab) 40 mg PO DAILY [facility] Sodium Chloride ([place] Nasal [place]) 1 sprays [place] Q4 PRN PRN Reason: Nasal congestion Tramadol HCl (Ultram) 50 mg PO Q4 PRN PRN Reason: Pain, moderate (4-7) Zolpidem Tartrate (Ambien) 5 mg PO HS [facility] Physical Exam - Constitutional Appears: Well, Non-toxic, No Acute Distress - Extremities Exam Additional comments: RLE focused physical exam: Vasc: DP and PT pulses palpable 2/4. CFT <3 seconds to all digits. Temperature gradient warm to warm. No edema noted. No increase in warmth right 2nd digit Neuro: Gross sensation slightly diminished. Derm: Tiny scab noted to plantar aspect of 2nd digit distal tuft. Ulcer is closed with scab overlying. No purulence or drainage noted. No erythema, no streaking, No malodor, no fluctuance, no probe to bone noted. No clinical signs of infection. Ortho: No tenderness to palpation right 2nd digit. 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 Treadwell Right foot wound culture final report - morg morganii ss morganii, staphylococcus aureus Patient will no longer need local wound care Continue abx per ID Patient is stable per podiatry Will followup with Dr. Treadwell within 1 week upon discharge
[2017-02-09] MEDS ORDERED: APREPITANT 125 MG CAP PO ONE (11:15)
[2017-02-09] MEDS ORDERED: DiphenhydrAMINE 50 mg/ml Inj IVP ONE (11:15)
[2017-02-09] MEDS ORDERED: Dexamethasone 10 MG in Sodium Chloride 0.9% 50 ML IVPB ONE (11:15)
[2017-02-09] MEDS ORDERED: Lidocaine 2% Jelly (5 ml) TOP PRN (11:45)
[2017-02-09] MEDS: Sodium Chloride 0.9% 500 ML IV SCH ×3 (11:53→21:00)
[2017-02-09] MEDS ORDERED: SODIUM CHLORIDE 0.9% IV ONE ×2 (12:00)
[2017-02-09] MEDS ORDERED: CISPLATIN IV ONE ×2 (12:00)
[2017-02-09 12:06] LABS: BASO # 0.1 K/uL (0.0-0.2); BASO % 1.3 % (0.0-2.0); LYMPH # 1.1 K/uL (1.0-4.3); LYMPH % 13.4 % (20.0-40.0); MEAN CELL VOLUME 74.9 fl (80.0-94.0); MEAN CORPUSCULAR HEMOGLOBIN 25.6 pg (27.0-31.0); MEAN CORPUSCULAR HGB CONC 34.1 g/dL (33.0-37.0); MEAN PLATELET VOLUME 7.5 fl (7.2-11.7); MONO # 1.1 K/uL (0.0-0.8); MONO % 13.4 % (0.0-10.0); NEUT # 6.1 K/uL (1.8-7.0); NEUT % 71.9 % (50.0-75.0); RED CELL DISTRIBUTION WIDTH 19.5 % (11.5-14.5); WHITE BLOOD COUNT 8.6 K/uL (4.8-10.8)
[2017-02-09 12:09] LABS: PARTIAL THROMBOPLASTIN TIME 37.8 Seconds (25.6-37.1)
[2017-02-09 12:18] LABS: ALKALINE PHOSPHATASE 78 U/L (38-126); ALT/SGPT 36 U/L (21-72); AST/SGOT 60 U/L (17-59); BLOOD UREA NITROGEN 14 mg/dl (9-20); CALCIUM 9.9 mg/dL (8.4-10.2); CARBON DIOXIDE 29 mmol/L (22-30); CHLORIDE 93 mmol/L (98-107); GFR AFRICAN-AMERICAN > 60; GLUCOSE,RANDOM 95 mg/dL (75-110); MAGNESIUM 1.3 MG/DL (1.6-2.3); POTASSIUM 3.4 MMOL/L (3.6-5.0); SODIUM 131 mmol/l (132-148)
[2017-02-09] MEDS ORDERED: Mannitol 12.5 gm/50 ml Inj IV ONE ×2 (12:54→15:30)
[2017-02-09] MEDS ORDERED: Potassium Chloride 20 mEq ER Tab PO ONE (15:37)
--- NOTE | 2017-02-09 15:49 | CP.PCM.CON ---
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 This was resected and he was given chemo with carboplatin and etoposide. He did well and was then lost to follow up until he recurred in 2014. He had lung lesions and was treated with keytruda. he was stable for a while. Recently he had a large pleural effusion which when drained produced about 8 liters of fluid. He was rthen supposed to receive chemo with cisplatin + etoposide. Since his ex lives in [place] she wanted him to get further itherapy at [facility] He has a long h/o smoking and drinks alcohol socially. Past Patient History - Infectious Disease Hx of Infectious Diseases: None - Tetanus Immunizations Tetanus Immunization: Unknown - Past Medical History & Family History Past Medical History?: Yes - Past Social History Smoking Status: Former Smoker - CARDIAC Hx Cardiac Disorders: Yes Hx Hypertension: Yes - PULMONARY Hx Respiratory Disorders: Yes Hx Lung Cancer: Yes - NEUROLOGICAL Hx Neurological Disorder: No - HEENT Hx HEENT Problems: Yes Other/Comment: Significant hearing loss. - RENAL Hx Chronic Kidney Disease: No - ENDOCRINE/METABOLIC Hx Endocrine Disorders: No - HEMATOLOGICAL/ONCOLOGICAL Hx Blood Disorders: Yes Hx Cancer: Yes ([place] cell cancer of the scalp.) Other/Comment: lung ca - INTEGUMENTARY Hx Dermatological Problems: Yes Other/Comment: [place] cell tumor of the scalp. - MUSCULOSKELETAL/RHEUMATOLOGICAL Hx Falls: Yes - GASTROINTESTINAL Hx Gastrointestinal Disorders: Yes Hx Gastritis: Yes - GENITOURINARY/GYNECOLOGICAL Hx Genitourinary Disorders: No - PSYCHIATRIC Hx Anxiety: Yes Hx Substance Use: No Other/Comment: Insomnia. - SURGICAL HISTORY Hx Arthroscopy: Yes (left knee) Hx Orthopedic Surgery: Yes (left knee replacement 11/03) Other/Comment: Excision of tumor on the scalp. Chest tube placement for pleural effusion followed by pleurodesis. right fourth toe amputation - ANESTHESIA Hx Anesthesia: Yes Hx Anesthesia Reactions: No Hx Malignant Hyperthermia: No Meds Allergies/Adverse Reactions: Allergies Allergy/AdvReac Type Severity Reaction Status Date / Time No Known Allergies Allergy Verified 01/30/17 15:30 - Medications Medications: Current Medications Acetaminophen (Tylenol 325mg Tab) 650 mg PO Q6 PRN PRN Reason: Fever >100.4 F Acetaminophen (Tylenol 325mg Tab) 650 mg PO Q6 PRN PRN Reason: Fever >100.4 F Al Hydrox/Mg Hydrox/Simethicone (Maalox Plus 30 Ml) 30 ml PO Q6 PRN PRN Reason: Indigestion / Heartburn Bacitracin (Bacitracin) 1 ea TOP DAILY [facility] Diphenhydramine HCl (Benadryl) 25 mg PO HS [facility] Docusate Sodium (Colace) 100 mg PO BID [facility] Enoxaparin Sodium (Lovenox) 40 mg SC DAILY [facility] PRN Reason: Protocol Fluconazole (Diflucan) 200 mg PO DAILY [facility] PRN Reason: Protocol Last Admin: 02/09/17 12:18 Dose: 200 mg Hydrochlorothiazide (Hydrodiuril) 25 mg PO DAILY [facility] Nafcillin Sodium 2 gm/ Sodium (Chloride) 100 mls @ 100 mls/hr IVPB Q6 [facility] Sodium Chloride (Sodium Chloride 0.9%) 500 mls @ 100 mls/hr IV .Q5H [facility] Last Admin: 02/09/17 11:53 Dose: 100 mls/hr Lidocaine HCl (Lidocaine Hydrochloride Jelly 2% 5 Ml) 1 ml TOP Q8H PRN PRN Reason: Pain, Mild (1-3) Metoprolol Tartrate (Lopressor) 25 mg PO Q12 [facility] Ondansetron HCl (Zofran Inj) 4 mg IVP Q6 PRN PRN Reason: Nausea/Vomiting Pantoprazole Sodium (Protonix Ec Tab) 40 mg PO DAILY [facility] Potassium Chloride (K-Dur 20 Meq Er Tab) 20 meq PO ONCE ONE Stop: 02/09/17 15:38 Sodium Chloride ([place] Nasal [place]) 1 sprays [place] Q4 PRN PRN Reason: Nasal congestion Tramadol HCl (Ultram) 50 mg PO Q4 PRN PRN Reason: Pain, moderate (4-7) Last Admin: 02/09/17 11:39 Dose: 50 mg Zolpidem Tartrate (Ambien) 5 mg PO HS [facility] Physical Exam - Additional Findings Additional findings: Physical exam;Alert, well oriented in no acute distress. Neck; supple, no adenopathy Chest; Air entry dereased especially left lung, Heart; RSR, no murmur Abd; Soft, no mass, no h/s megaly Results - Labs Result Diagrams: 02/09/17 11:40 02/09/17 11:40 Labs: Laboratory Results - last 24 hr 02/09/17 02/09/17 02/09/17 11:40 11:40 11:40 WBC 8.6 RBC 3.20 L Hgb 8.2 L Hct 24.0 L MCV 74.9 L MCH 25.6 L MCHC 34.1 RDW 19.5 H Plt Count 414 H MPV 7.5 Neut % (Auto) 71.9 Lymph % (Auto) 13.4 L [place] % (Auto) 13.4 H Eos % (Auto) 0.0 Baso % (Auto) 1.3 Neut # 6.1 Lymph # 1.1 [place] # 1.1 H Eos # 0.0 Baso # 0.1 PT 16.6 H INR 1.5 H APTT 37.8 H Sodium 131 L Potassium 3.4 L Chloride 93 L Carbon Dioxide 29 Anion Gap 12 BUN 14 Creatinine 0.9 Est GFR ( Amer) > 60 Est GFR (Non-Af Amer) > 60 Random Glucose 95 Calcium 9.9 Magnesium 1.3 L Total Bilirubin 1.0 AST 60 H ALT 36 Alkaline Phosphatase 78 Total Protein 6.0 L Albumin 3.0 L Globulin 3.0 Albumin/Globulin Ratio 1.0 Blood Type Antibody Screen Crossmatch BBK History Checked 02/09/17 11:50 WBC RBC Hgb Hct MCV MCH MCHC RDW Plt Count MPV Neut % (Auto) Lymph % (Auto) [place] % (Auto) Eos % (Auto) Baso % (Auto) Neut # Lymph # [place] # Eos # Baso # PT INR APTT Sodium Potassium Chloride Carbon Dioxide Anion Gap BUN Creatinine Est GFR ( Amer) Est GFR (Non-Af Amer) Random Glucose Calcium Magnesium Total Bilirubin AST ALT Alkaline Phosphatase Total Protein Albumin Globulin Albumin/Globulin Ratio Blood Type O POSITIVE Antibody Screen Negative Crossmatch See Detail BBK History Checked Patient has bt Assessment & Plan - Assessment and Plan (Free Text) Assessment: Impression; Maricel cell carcinoma,with metastasis tyo the lung and pleura,. Plan: Plan; Since he feels too tired to do physical therapy, will transfuse him 2 units of packed cells today.. then give him cisplati + etoposide and then request rehab consult tomorrow.
[2017-02-09] MEDS ORDERED: NAFCILLIN IN DEXTROSE ISO OSM IV SCH (16:00)
[2017-02-09] MEDS ORDERED: [UNRECOGNIZED DRUG - OTHER] IV SCH (16:00)
[2017-02-09] MEDS: Nafcillin 2 GM in Sodium Chloride 0.9% 100 ML IVPB SCH ×2 (16:56→21:04)
[2017-02-10] MEDS: Sodium Chloride 0.9% 500 ML IV SCH ×9 (02:00→23:06)
[2017-02-10] MEDS ORDERED: Nafcillin 2 GM in Sodium Chloride 0.9% 100 ML IM ONE (04:00)
[2017-02-10] MEDS: Nafcillin 2 GM in Sodium Chloride 0.9% 100 ML IVPB SCH ×4 (04:00→21:33)
[2017-02-10 06:56] LABS: BASO # 0.1 K/uL (0.0-0.2); BASO % 0.8 % (0.0-2.0); HEMATOCRIT 29.8 % (35.0-51.0); LYMPH # 0.7 K/uL (1.0-4.3); LYMPH % 9.3 % (20.0-40.0); MEAN CELL VOLUME 78.5 fl (80.0-94.0); MEAN CORPUSCULAR HEMOGLOBIN 25.7 pg (27.0-31.0); MEAN CORPUSCULAR HGB CONC 32.7 g/dL (33.0-37.0); MEAN PLATELET VOLUME 7.1 fl (7.2-11.7); MONO # 0.9 K/uL (0.0-0.8); MONO % 12.7 % (0.0-10.0); NEUT # 5.5 K/uL (1.8-7.0); NEUT % 77.2 % (50.0-75.0); PLATELET COUNT 376 K/uL (130-400); RED CELL DISTRIBUTION WIDTH 19.9 % (11.5-14.5); WHITE BLOOD COUNT 7.1 K/uL (4.8-10.8)
[2017-02-10 07:10] LABS: BLOOD UREA NITROGEN 22 mg/dl (9-20); CALCIUM 9.6 mg/dL (8.4-10.2); CARBON DIOXIDE 26 mmol/L (22-30); CHLORIDE 101 mmol/L (98-107); GFR AFRICAN-AMERICAN > 60; GLUCOSE,RANDOM 95 mg/dL (75-110); POTASSIUM 3.6 MMOL/L (3.6-5.0); SODIUM 136 mmol/l (132-148)
--- NOTE | 2017-02-10 07:36 | CP.PCM.HP ---
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 Pt has remained in the hospital and comes from TCU where he was receiving IV antibiotics for a left knee effusion with + intra-operative MSSA cultures. Pt is now 11 days s/p left knee arthroscopy with I&D with Dr. Del Angel. Pt states he is feeling well today and started chemotherapy yesterday. Pt denies any nausea or vomiting following his treatment. Pt states today that he feels as though he is getting stronger. Pt reports being able to walk around on his own and improved knee mobility. Pt denies any acute events overnight. Pt states the pain in his left knee is decreasing. Pt denies any discomfort to the right foot 2nd digit where he formerly had an ulceration that has since healed. Pt admits to still experiencing chronic low back pain, but is doing fine at this time. Pt denies F/C/N/V/CP/SOB. Present on Admission - Present on Admission Any Indicators Present on Admission: No History of DVT/PE: No Review of Systems - Review of Systems All systems: reviewed and no additional remarkable complaints except (per HPI) Past Patient History - Infectious Disease Hx of Infectious Diseases: None - Tetanus Immunizations Tetanus Immunization: Unknown - Past Medical History & Family History Past Medical History?: Yes - Past Social History Smoking Status: Former Smoker - CARDIAC Hx Cardiac Disorders: Yes Hx Hypertension: Yes - PULMONARY Hx Respiratory Disorders: Yes Hx Lung Cancer: Yes - NEUROLOGICAL Hx Neurological Disorder: No - HEENT Hx HEENT Problems: Yes Other/Comment: Significant hearing loss. - RENAL Hx Chronic Kidney Disease: No - ENDOCRINE/METABOLIC Hx Endocrine Disorders: No - HEMATOLOGICAL/ONCOLOGICAL Hx Blood Disorders: Yes Hx Cancer: Yes ([place] cell cancer of the scalp.) Other/Comment: lung ca - INTEGUMENTARY Hx Dermatological Problems: Yes Other/Comment: [place] cell tumor of the scalp. - MUSCULOSKELETAL/RHEUMATOLOGICAL Hx Falls: Yes - GASTROINTESTINAL Hx Gastrointestinal Disorders: Yes Hx Gastritis: Yes - GENITOURINARY/GYNECOLOGICAL Hx Genitourinary Disorders: No - PSYCHIATRIC Hx Anxiety: Yes Hx Substance Use: No Other/Comment: Insomnia. - SURGICAL HISTORY Hx Arthroscopy: Yes (left knee) Hx Orthopedic Surgery: Yes (left knee replacement 11/03) Other/Comment: Excision of tumor on the scalp. Chest tube placement for pleural effusion followed by pleurodesis. right fourth toe amputation - ANESTHESIA Hx Anesthesia: Yes Hx Anesthesia Reactions: No Hx Malignant Hyperthermia: No Meds Allergies/Adverse Reactions: Allergies Allergy/AdvReac Type Severity Reaction Status Date / Time No Known Allergies Allergy Verified 01/30/17 15:30 Physical Exam - Constitutional Appears: Well, Non-toxic, No Acute Distress - Head Exam Head Exam: ATRAUMATIC, NORMOCEPHALIC - Eye Exam Eye Exam: EOMI, Normal appearance, PERRL Pupil Exam: NORMAL ACCOMODATION, PERRL - ENT Exam ENT Exam: Mucous Membranes Moist, Normal Exam - Neck Exam Neck exam: Positive for: Full Rom, Normal Inspection Additional comments: supple, non-tender, no JVD - Respiratory Exam Respiratory Exam: Clear to Auscultation Bilateral, NORMAL BREATHING PATTERN - Cardiovascular Exam Cardiovascular Exam: REGULAR RHYTHM, +S1, +S2 Additional comments: no murmur, no gallop, no JVD - GI/Abdominal Exam GI & Abdominal Exam: Normal Bowel Sounds, Soft Additional comments: non-tender - Rectal Exam Rectal Exam: Deferred - Extremities Exam Extremities exam: Positive for: joint swelling Additional comments: mild edema surrounding L knee at site of effusion. Pt able to perform active L knee flexion and extension with mild-moderate pain. No erythema noted to L knee. Right index finger with palmar skin lesion. Right foot ulceration to 2nd digit fully healed at this time. No erythema, no breaks in skin or soft tissue, no maceration, no drainage, no cellulitic changes noted. - Back Exam Back exam: NORMAL INSPECTION, tenderness Additional comments: tenderness elicited on trunk flexion and extension in bed - Neurological Exam Neurological exam: Alert, CN II-XII Intact, Oriented x3, Reflexes Normal - Psychiatric Exam Psychiatric exam: Normal Affect, Normal Mood - Skin Skin Exam: Normal Color Additional comments: Lesion noted to palmar aspect of right index finger Results - Vital Signs Recent Vital Signs: Last Vital Signs Temp 98.2 F 02/10/17 07:29 Pulse 70 02/10/17 07:29 Resp 20 02/10/17 07:29 BP 110/61 02/10/17 07:29 Pulse Ox 95 02/10/17 07:29 - Labs Result Diagrams: 02/10/17 06:30 02/10/17 06:30 Labs: Laboratory Results - last 24 hr 02/09/17 02/09/17 02/09/17 11:40 11:40 11:40 WBC 8.6 RBC 3.20 L Hgb 8.2 L Hct 24.0 L MCV 74.9 L MCH 25.6 L MCHC 34.1 RDW 19.5 H Plt Count 414 H MPV 7.5 Neut % (Auto) 71.9 Lymph % (Auto) 13.4 L [place] % (Auto) 13.4 H Eos % (Auto) 0.0 Baso % (Auto) 1.3 Neut # 6.1 Lymph # 1.1 [place] # 1.1 H Eos # 0.0 Baso # 0.1 PT 16.6 H INR 1.5 H APTT 37.8 H Sodium 131 L Potassium 3.4 L Chloride 93 L Carbon Dioxide 29 Anion Gap 12 BUN 14 Creatinine 0.9 Est GFR ( Amer) > 60 Est GFR (Non-Af Amer) > 60 Random Glucose 95 Calcium 9.9 Magnesium 1.3 L Total Bilirubin 1.0 AST 60 H ALT 36 Alkaline Phosphatase 78 Total Protein 6.0 L Albumin 3.0 L Globulin 3.0 Albumin/Globulin Ratio 1.0 Blood Type Antibody Screen Crossmatch BBK History Checked 02/09/17 02/10/17 02/10/17 11:50 06:30 06:30 WBC 7.1 RBC 3.80 L Hgb 9.8 L Hct 29.8 L MCV 78.5 L D MCH 25.7 L MCHC 32.7 L RDW 19.9 H Plt Count 376 MPV 7.1 L Neut % (Auto) 77.2 H Lymph % (Auto) 9.3 L [place] % (Auto) 12.7 H Eos % (Auto) 0.0 Baso % (Auto) 0.8 Neut # 5.5 Lymph # 0.7 L [place] # 0.9 H Eos # 0.0 Baso # 0.1 PT INR APTT Sodium 136 Potassium 3.6 Chloride 101 Carbon Dioxide 26 Anion Gap 13 BUN 22 H Creatinine 1.0 Est GFR ( Amer) > 60 Est GFR (Non-Af Amer) > 60 Random Glucose 95 Calcium 9.6 Magnesium Total Bilirubin AST ALT Alkaline Phosphatase Total Protein Albumin Globulin Albumin/Globulin Ratio Blood Type O POSITIVE Antibody Screen Negative Crossmatch See Detail BBK History Checked Patient has bt Assessment & Plan - Assessment and Plan (Free Text) Assessment: 1. Metastatic [place] Carcinoma -Oncology on consult -Chemo initiated yesterday - etoposide and cilistatin 2. Left knee effusion /Infection, improved Ortho consult for Dr. Del Angel placed 3 cultures + for MSSA Pt will continue on IV Nafcillin for minimum of 6 weeks 3. Chronic anemia, secondary to malignancy -Pt transfused 2 units yesterday -Hgb up to 9.8 from 8.2 -will monitor and transfuse as needed 4. Pneumonia ruled out CT of chest shows no acute infiltrate however noted multiple pulmonary nodules and pleural based soft tissue mass Blood c/s: negative Pulmonology Dr Rodriguez on consult Mycoplasma Ag IG + however, IgM neg Strep Ag negative 5. Pancytopenia secondary to chemotherapy, improved -Neutropenia resolved with Granix -Heme/Oncology - Dr Donny Logan on consult 6.Hypertension, chronic BP stable cont Metoprolol 7. Right 2nd Toe Ulcer, resolved Ulceration fully healed with no clinical signs of infection Podiatry signed off at this time Pt on IV abx 8. DVT prophylaxis continue Lovenox <Xena Morales - Last Filed: 02/10/17 14:54> Results - Vital Signs Recent Vital Signs: Last Vital Signs Temp 98.2 F 02/10/17 07:29 Pulse 70 02/10/17 09:08 Resp 20 02/10/17 07:29 BP 110/61 02/10/17 09:08 Pulse Ox 95 02/10/17 07:29 - Labs Result Diagrams: 02/10/17 06:30 02/10/17 06:30 Labs: Laboratory Results - last 24 hr 02/09/17 02/10/17 02/10/17 11:50 06:30 06:30 WBC 7.1 RBC 3.80 L Hgb 9.8 L Hct 29.8 L MCV 78.5 L D MCH 25.7 L MCHC 32.7 L RDW 19.9 H Plt Count 376 MPV 7.1 L Neut % (Auto) 77.2 H Lymph % (Auto) 9.3 L [place] % (Auto) 12.7 H Eos % (Auto) 0.0 Baso % (Auto) 0.8 Neut # 5.5 Lymph # 0.7 L [place] # 0.9 H Eos # 0.0 Baso # 0.1 Neutrophils % (Manual) 73 Lymphocytes % (Manual) 12 L Reactive Lymphs % 2 H Monocytes % (Manual) 13 H Platelet Estimate Normal Polychromasia Slight Hypochromasia (manual) Slight Poikilocytosis (manual Slight Anisocytosis (manual) Moderate Tear Drop Cells Slight Ovalocytes Slight Sodium 136 Potassium 3.6 Chloride 101 Carbon Dioxide 26 Anion Gap 13 BUN 22 H Creatinine 1.0 Est GFR ( Amer) > 60 Est GFR (Non-Af Amer) > 60 Random Glucose 95 Calcium 9.6 Blood Type O POSITIVE Antibody Screen Negative Crossmatch See Detail BBK History Checked Patient has bt Attending/Attestation - Attestation I have personally seen and examined this patient.: Yes I have fully participated in the care of the patient.: Yes I have reviewed all pertinent clinical information: Yes Notes (Text): Pt was admitted from TCU to the Med Surg floor for Chemotherapy. Pt started on Chemotherapy regimen - Etoposide, Cis platin We will continue his IV antibiotics for his Left Knee infection Physical therapy Monitor CBC Transfused 2 units PRBC Surgical consult to eval right index finger abscess Plan to d/c pt to [facility] to continue IV Nafcillin once Chemotherapy is completed Dx Metastatic [place] carcinoma Anemia, chronic sec to CA and also due to Chemotx Left Knee Effusion/Infection/Cellulitis Full Code Surrogate Decision maker : spouse Rebecca
--- NOTE | 2017-02-10 08:44 | CP.PCM.CON ---
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 The patient was being followed in [place] for these therapies, and records which were forwarded to my office indicate that he was noncompliant with some of his follow-up visits. He did develop metastatic disease to the lungs with a right upper lobe lesion as well as a left lower lobe lesion. He also developed a malignant pleural effusion which was drained, and pleurodesis was performed. He was admitted here with suspected pneumonia as well as swelling of the left knee where he had undergone total knee replacement a short time earlier. CT scan of the chest showed increased volume of soft tissue density in the base of the left lung which likely represents tumor progression. He underwent drainage of the fluid in the left knee arthroscopically and is being treated with antibiotics for culture-positive Staphylococcus aureus. He did have a small, painful lesion on the tip of the index finger on the right hand from which some bloody purulent material was expressed. This did culture positive for Enterococcus faecalis. Past Patient History - Infectious Disease Hx of Infectious Diseases: None - Tetanus Immunizations Tetanus Immunization: Unknown - Past Medical History & Family History Past Medical History?: Yes Pertinent Family History: coronary artery disease - Past Social History Smoking Status: Former Smoker Chewing Tobacco Use: No Cigar Use: No Alcohol: Social Drugs: Denies Home Situation {Lives}: Alone - CARDIAC Hx Cardiac Disorders: Yes Hx Hypertension: Yes - PULMONARY Hx Respiratory Disorders: Yes Hx Chronic Obstructive Pulmonary Disease (COPD): Yes (suspect) Other/Comment: Malignant pleural effusion with drainage and pleurodesis. Metastatic neuroendocrine tumor to right upper lobe and left lower lobe. - NEUROLOGICAL Hx Neurological Disorder: No - HEENT Hx HEENT Problems: Yes Other/Comment: Significant hearing loss. 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 - MUSCULOSKELETAL/RHEUMATOLOGICAL Hx [place]: Yes - GASTROINTESTINAL Hx Gastrointestinal Disorders: Yes Hx Gastritis: Yes - GENITOURINARY/GYNECOLOGICAL Hx Genitourinary Disorders: No - PSYCHIATRIC Hx Anxiety: Yes Hx Substance Use: No Other/Comment: Insomnia. - SURGICAL HISTORY Hx Arthroscopy: Yes (left knee, recent) Hx Orthopedic Surgery: Yes (left knee replacement 11/03) Other/Comment: Excision of tumor on the scalp. Chest tube placement for pleural effusion followed by pleurodesis. right fourth toe amputation - ANESTHESIA Hx Anesthesia: Yes Hx Anesthesia Reactions: No Hx Malignant Hyperthermia: No Meds Allergies/Adverse Reactions: Allergies Allergy/AdvReac Type Severity Reaction Status Date / Time No Known Allergies Allergy Verified 01/30/17 15:30 - Medications Medications: Current Medications Acetaminophen (Tylenol 325mg Tab) 650 mg PO Q6 PRN PRN Reason: Fever >100.4 F Acetaminophen (Tylenol 325mg Tab) 650 mg PO Q6 PRN PRN Reason: Fever >100.4 F Al Hydrox/Mg Hydrox/Simethicone (Maalox Plus 30 Ml) 30 ml PO Q6 PRN PRN Reason: Indigestion / Heartburn Bacitracin (Bacitracin) 1 ea TOP DAILY [facility] Diphenhydramine HCl (Benadryl) 25 mg PO HS [facility] Last Admin: 02/09/17 21:15 Dose: 25 mg Diphenhydramine HCl (Benadryl) 25 mg PO ONCE ONE Stop: 02/10/17 08:24 Docusate Sodium (Colace) 100 mg PO BID [facility] Last Admin: 02/09/17 17:08 Dose: 100 mg Enoxaparin Sodium (Lovenox) 40 mg SC DAILY [facility] PRN Reason: Protocol Fluconazole (Diflucan) 200 mg PO DAILY [facility] PRN Reason: Protocol Last Admin: 02/09/17 12:18 Dose: 200 mg Hydrochlorothiazide (Hydrodiuril) 25 mg PO DAILY [facility] Nafcillin Sodium 2 gm/ Sodium (Chloride) 100 mls @ 100 mls/hr IVPB Q6 [facility] Last Admin: 02/10/17 04:00 Dose: 100 mls/hr Sodium Chloride (Sodium Chloride 0.9%) 500 mls @ 100 mls/hr IV .Q5H [facility] Last Admin: 02/10/17 02:00 Dose: Not Given Dexamethasone 10 mg/ Sodium (Chloride) 51 mls @ 102 mls/hr IVPB ONCE ONE Stop: 02/10/17 08:48 Sodium Chloride (Sodium Chloride 0.9%) 500 mls @ 70 mls/hr IV .Q7H9M [facility] Etoposide 220 mg/ Sodium (Chloride) 511 mls @ 0 mls/hr IV ONCE ONE PRN Reason: As Directed Stop: 02/10/17 08:26 Lidocaine HCl (Lidocaine Hydrochloride Jelly 2% 5 Ml) 1 ml TOP Q8H PRN PRN Reason: Pain, Mild (1-3) Metoprolol Tartrate (Lopressor) 25 mg PO Q12 [facility] Last Admin: 02/09/17 21:15 Dose: 25 mg Ondansetron HCl (Zofran Inj) 4 mg IVP Q6 PRN PRN Reason: Nausea/Vomiting Pantoprazole Sodium (Protonix Ec Tab) 40 mg PO DAILY [facility] Sodium Chloride ([place] Nasal [place]) 1 sprays [place] Q4 PRN PRN Reason: Nasal congestion Tramadol HCl (Ultram) 50 mg PO Q4 PRN PRN Reason: Pain, moderate (4-7) Last Admin: 02/09/17 17:05 Dose: 50 mg Zolpidem Tartrate (Ambien) 5 mg PO HS [facility] Last Admin: 02/09/17 21:05 Dose: Not Given Physical Exam - Additional Findings Additional findings: Awake, alert, oriented 3. No acute distress. The neck is supple and trachea is midline. No neck vein distention or carotid bruit. No cervical or supraclavicular adenopathy. No axillary adenopathy. Dullness to percussion noted in the base of the left lung posteriorly. Decreased expansion on the left. Breath sounds are diminished bilaterally. Breath sounds are absent in the left base. No audible wheezes or bronchial breathing. No egophony. Few scattered rhonchi in dependent zones of both lungs. Rare dry rales in the right base. Abdomen is soft and nontender with no palpable mass. Normal bowel sounds. No dependent edema of the lower extremities. No cyanosis. Peripheral pulses are well felt. On the index finger of the right hand there is noted to be an area of eschar formation with a surrounding purplish border. No tenderness. No fluid or fluctuance. Results - Vital Signs Recent Vital Signs: Last Vital Signs Temp 98.2 F 02/10/17 07:29 Pulse 70 02/10/17 07:29 Resp 20 02/10/17 07:29 BP 110/61 02/10/17 07:29 Pulse Ox 95 02/10/17 07:29 - Labs Result Diagrams: 02/10/17 06:30 02/10/17 06:30 Labs: Laboratory Results - last 24 hr 02/09/17 02/09/17 02/09/17 11:40 11:40 11:40 WBC 8.6 RBC 3.20 L Hgb 8.2 L Hct 24.0 L MCV 74.9 L MCH 25.6 L MCHC 34.1 RDW 19.5 H Plt Count 414 H MPV 7.5 Neut % (Auto) 71.9 Lymph % (Auto) 13.4 L [place] % (Auto) 13.4 H Eos % (Auto) 0.0 Baso % (Auto) 1.3 Neut # 6.1 Lymph # 1.1 [place] # 1.1 H Eos # 0.0 Baso # 0.1 PT 16.6 H INR 1.5 H APTT 37.8 H Sodium 131 L Potassium 3.4 L Chloride 93 L Carbon Dioxide 29 Anion Gap 12 BUN 14 Creatinine 0.9 Est GFR ( Amer) > 60 Est GFR (Non-Af Amer) > 60 Random Glucose 95 Calcium 9.9 Magnesium 1.3 L Total Bilirubin 1.0 AST 60 H ALT 36 Alkaline Phosphatase 78 Total Protein 6.0 L Albumin 3.0 L Globulin 3.0 Albumin/Globulin Ratio 1.0 Blood Type Antibody Screen Crossmatch BBK History Checked 02/09/17 02/10/17 02/10/17 11:50 06:30 06:30 WBC 7.1 RBC 3.80 L Hgb 9.8 L Hct 29.8 L MCV 78.5 L D MCH 25.7 L MCHC 32.7 L RDW 19.9 H Plt Count 376 MPV 7.1 L Neut % (Auto) 77.2 H Lymph % (Auto) 9.3 L [place] % (Auto) 12.7 H Eos % (Auto) 0.0 Baso % (Auto) 0.8 Neut # 5.5 Lymph # 0.7 L [place] # 0.9 H Eos # 0.0 Baso # 0.1 PT INR APTT Sodium 136 Potassium 3.6 Chloride 101 Carbon Dioxide 26 Anion Gap 13 BUN 22 H Creatinine 1.0 Est GFR ( Amer) > 60 Est GFR (Non-Af Amer) > 60 Random Glucose 95 Calcium 9.6 Magnesium Total Bilirubin AST ALT Alkaline Phosphatase Total Protein Albumin Globulin Albumin/Globulin Ratio Blood Type O POSITIVE Antibody Screen Negative Crossmatch See Detail BBK History Checked Patient has bt Assessment & Plan (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 Status: Chronic Priority: High (2) Metastatic carcinoma Assessment and Plan: Bilateral lung metastases (RUL/LLL). Will follow up after present cycle of chemo with CT chest. Clinically stable at present. Status: Chronic Priority: High (3) Lesion of finger Assessment and Plan: had infection drained, but non-healing eschar has formed. Asked for surgical eval for possible excision or biopsy. Status: Acute Priority: High - Date & Time Date: 02/10/17 Time: 08:46
[2017-02-10] MEDS: Enoxaparin 40 mg Syringe SC SCH (09:07)
[2017-02-10] MEDS: Pantoprazole 40 mg EC Tab PO SCH (09:09)
[2017-02-10] MEDS: Bacitracin 500 Units/gm Oint Foilpak UD TOP SCH (09:10)
[2017-02-10] MEDS ORDERED: APREPITANT 80 MG CAP PO ONE (09:15)
[2017-02-10] MEDS ORDERED: Dexamethasone 10 MG in Sodium Chloride 0.9% 50 ML IVPB ONE (09:15)
--- NOTE | 2017-02-10 10:04 | CP.PCM.CON ---
<Nithin Dallas - Last Filed: 02/10/17 10:18> History of Present Illness - History of Present Illness History of Present Illness: 76M w/ PMHx of [place] Cell CA, HTN, w/ right index finger skin lesion. Patient reports he first noticed the skin lesion develop in his finger about three weeks ago. Patient described the lesion intially as blister-like. As per patient , the lesion never had any purulent discharged. According to the patient the lesion began to dry up and is now dry circular plaque-like lesion on the palmar aspect of index finger.Patient was diagnosex with [place] cell CA in 2008. As per patient his tumor was in the skull, which was resected. Patient initially received chemo with carboplatin and etoposide. Currently heme/onc is prescribing etoposide and cisplatin. Currently denies fever/chills, chest pain, SOB. PMHx: as stated above PSurgHx: L knee arthroscopy Allergies: NKDA Review of Systems - Review of Systems Review of Systems: 12 pt ROS reviewed, negative, except as stated in HPI Past Patient History - Infectious Disease Hx of Infectious Diseases: None - Tetanus Immunizations Tetanus Immunization: Unknown - Past Medical History & Family History Past Medical History?: Yes - Past Social History Smoking Status: Former Smoker - CARDIAC Hx Cardiac Disorders: Yes Hx Hypertension: Yes - PULMONARY Hx Respiratory Disorders: Yes Hx Lung Cancer: Yes - NEUROLOGICAL Hx Neurological Disorder: No - HEENT Hx HEENT Problems: Yes Other/Comment: Significant hearing loss. - RENAL Hx Chronic Kidney Disease: No - ENDOCRINE/METABOLIC Hx Endocrine Disorders: No - HEMATOLOGICAL/ONCOLOGICAL Hx Blood Disorders: Yes Hx Cancer: Yes ([place] cell cancer of the scalp.) Other/Comment: lung ca - INTEGUMENTARY Hx Dermatological Problems: Yes Other/Comment: Raúl cell tumor of the scalp. - MUSCULOSKELETAL/RHEUMATOLOGICAL Hx Falls: Yes - GASTROINTESTINAL Hx Gastrointestinal Disorders: Yes Hx Gastritis: Yes - GENITOURINARY/GYNECOLOGICAL Hx Genitourinary Disorders: No - PSYCHIATRIC Hx Anxiety: Yes Hx Substance Use: No Other/Comment: Insomnia. - SURGICAL HISTORY Hx Arthroscopy: Yes (left knee) Hx Orthopedic Surgery: Yes (left knee replacement 11/03) Other/Comment: Excision of tumor on the scalp. Chest tube placement for pleural effusion followed by pleurodesis. right fourth toe amputation - ANESTHESIA Hx Anesthesia: Yes Hx Anesthesia Reactions: No Hx Malignant Hyperthermia: No Meds Allergies/Adverse Reactions: Allergies Allergy/AdvReac Type Severity Reaction Status Date / Time No Known Allergies Allergy Verified 01/30/17 15:30 - Medications Medications: Current Medications Acetaminophen (Tylenol 325mg Tab) 650 mg PO Q6 PRN PRN Reason: Fever >100.4 F Acetaminophen (Tylenol 325mg Tab) 650 mg PO Q6 PRN PRN Reason: Fever >100.4 F Al Hydrox/Mg Hydrox/Simethicone (Maalox Plus 30 Ml) 30 ml PO Q6 PRN PRN Reason: Indigestion / Heartburn Bacitracin (Bacitracin) 1 ea TOP DAILY [facility] Last Admin: 02/10/17 09:10 Dose: 1 ea Diphenhydramine HCl (Benadryl) 25 mg PO HS [facility] Last Admin: 02/09/17 21:15 Dose: 25 mg Docusate Sodium (Colace) 100 mg PO BID [facility] Last Admin: 02/10/17 09:09 Dose: 100 mg Enoxaparin Sodium (Lovenox) 40 mg SC DAILY [facility] PRN Reason: Protocol Last Admin: 02/10/17 09:07 Dose: 40 mg Fluconazole (Diflucan) 200 mg PO DAILY [facility] PRN Reason: Protocol Last Admin: 02/10/17 09:09 Dose: 200 mg Hydrochlorothiazide (Hydrodiuril) 25 mg PO DAILY [facility] Last Admin: 02/10/17 09:09 Dose: 25 mg Nafcillin Sodium 2 gm/ Sodium (Chloride) 100 mls @ 100 mls/hr IVPB Q6 [facility] Last Admin: 02/10/17 09:08 Dose: 100 mls/hr Sodium Chloride (Sodium Chloride 0.9%) 500 mls @ 100 mls/hr IV .Q5H [facility] Last Admin: 02/10/17 02:00 Dose: Not Given Sodium Chloride (Sodium Chloride 0.9%) 500 mls @ 70 mls/hr IV .Q7H9M [facility] Last Admin: 02/10/17 09:14 Dose: 70 mls/hr Etoposide 220 mg/ Sodium (Chloride) 511 mls @ 340.667 mls/hr IV ONCE ONE PRN Reason: As Directed Stop: 02/10/17 11:29 Lidocaine HCl (Lidocaine Hydrochloride Jelly 2% 5 Ml) 1 ml TOP Q8H PRN PRN Reason: Pain, Mild (1-3) Metoprolol Tartrate (Lopressor) 25 mg PO Q12 [facility] Last Admin: 02/10/17 09:08 Dose: 25 mg Ondansetron HCl (Zofran Inj) 4 mg IVP Q6 PRN PRN Reason: Nausea/Vomiting Pantoprazole Sodium (Protonix Ec Tab) 40 mg PO DAILY [facility] Last Admin: 02/10/17 09:09 Dose: 40 mg Sodium Chloride ([place] Nasal [place]) 1 sprays [place] Q4 PRN PRN Reason: Nasal congestion Tramadol HCl (Ultram) 50 mg PO Q4 PRN PRN Reason: Pain, moderate (4-7) Last Admin: 02/09/17 17:05 Dose: 50 mg Zolpidem Tartrate (Ambien) 5 mg PO HS [facility] Last Admin: 02/09/17 21:05 Dose: Not Given Physical Exam - Constitutional Appears: No Acute Distress - Head Exam Head Exam: NORMOCEPHALIC - Eye Exam Eye Exam: Normal appearance - ENT Exam ENT Exam: Mucous Membranes Moist - Respiratory Exam Respiratory Exam: NORMAL BREATHING PATTERN - Cardiovascular Exam Cardiovascular Exam: +S1, +S2 - GI/Abdominal Exam GI & Abdominal Exam: Soft - Extremities Exam Extremities exam: Negative for: calf tenderness Additional comments: Right index finger skin lesion on palmar aspect - Neurological Exam Neurological exam: Alert, Oriented x3 - Psychiatric Exam Psychiatric exam: Normal Mood - Skin Additional comments: circular lesion on palmar aspect of right index finger Results - Vital Signs Recent Vital Signs: Last Vital Signs Temp 98.2 F 02/10/17 07:29 Pulse 70 02/10/17 09:08 Resp 20 02/10/17 07:29 BP 110/61 02/10/17 09:08 Pulse Ox 95 02/10/17 07:29 - Labs Result Diagrams: 02/10/17 06:30 02/10/17 06:30 Labs: Laboratory Results - last 24 hr 02/09/17 02/09/17 02/09/17 11:40 11:40 11:40 WBC 8.6 RBC 3.20 L Hgb 8.2 L Hct 24.0 L MCV 74.9 L MCH 25.6 L MCHC 34.1 RDW 19.5 H Plt Count 414 H MPV 7.5 Neut % (Auto) 71.9 Lymph % (Auto) 13.4 L [place] % (Auto) 13.4 H Eos % (Auto) 0.0 Baso % (Auto) 1.3 Neut # 6.1 Lymph # 1.1 [place] # 1.1 H Eos # 0.0 Baso # 0.1 PT 16.6 H INR 1.5 H APTT 37.8 H Sodium 131 L Potassium 3.4 L Chloride 93 L Carbon Dioxide 29 Anion Gap 12 BUN 14 Creatinine 0.9 Est GFR ( Amer) > 60 Est GFR (Non-Af Amer) > 60 Random Glucose 95 Calcium 9.9 Magnesium 1.3 L Total Bilirubin 1.0 AST 60 H ALT 36 Alkaline Phosphatase 78 Total Protein 6.0 L Albumin 3.0 L Globulin 3.0 Albumin/Globulin Ratio 1.0 Blood Type Antibody Screen Crossmatch BBK History Checked 02/09/17 02/10/17 02/10/17 11:50 06:30 06:30 WBC 7.1 RBC 3.80 L Hgb 9.8 L Hct 29.8 L MCV 78.5 L D MCH 25.7 L MCHC 32.7 L RDW 19.9 H Plt Count 376 MPV 7.1 L Neut % (Auto) 77.2 H Lymph % (Auto) 9.3 L [place] % (Auto) 12.7 H Eos % (Auto) 0.0 Baso % (Auto) 0.8 Neut # 5.5 Lymph # 0.7 L [place] # 0.9 H Eos # 0.0 Baso # 0.1 PT INR APTT Sodium 136 Potassium 3.6 Chloride 101 Carbon Dioxide 26 Anion Gap 13 BUN 22 H Creatinine 1.0 Est GFR ( Amer) > 60 Est GFR (Non-Af Amer) > 60 Random Glucose 95 Calcium 9.6 Magnesium Total Bilirubin AST ALT Alkaline Phosphatase Total Protein Albumin Globulin Albumin/Globulin Ratio Blood Type O POSITIVE Antibody Screen Negative Crossmatch See Detail BBK History Checked Patient has bt Assessment & Plan - Assessment and Plan (Free Text) Assessment: 76M w/ hx of [place] cell carcinoma w/ right index finger skin lesion <Alfonso Anglin - Last Filed: 02/10/17 16:22> History of Present Illness - History of Present Illness History of Present Illness: Patient was seen and examined at the bedside. Agree with resident's note above. Meds - Medications Medications: Current Medications Acetaminophen (Tylenol 325mg Tab) 650 mg PO Q6 PRN PRN Reason: Fever >100.4 F Acetaminophen (Tylenol 325mg Tab) 650 mg PO Q6 PRN PRN Reason: Fever >100.4 F Al Hydrox/Mg Hydrox/Simethicone (Maalox Plus 30 Ml) 30 ml PO Q6 PRN PRN Reason: Indigestion / Heartburn Bacitracin (Bacitracin) 1 ea TOP DAILY [facility] Last Admin: 02/10/17 09:10 Dose: 1 ea Diphenhydramine HCl (Benadryl) 25 mg PO HS [facility] Last Admin: 02/09/17 21:15 Dose: 25 mg Docusate Sodium (Colace) 100 mg PO BID [facility] Last Admin: 02/10/17 09:09 Dose: 100 mg Enoxaparin Sodium (Lovenox) 40 mg SC DAILY [facility] PRN Reason: Protocol Last Admin: 02/10/17 09:07 Dose: 40 mg Fluconazole (Diflucan) 200 mg PO DAILY [facility] PRN Reason: Protocol Last Admin: 02/10/17 09:09 Dose: 200 mg Hydrochlorothiazide (Hydrodiuril) 25 mg PO DAILY [facility] Last Admin: 02/10/17 09:09 Dose: 25 mg Nafcillin Sodium 2 gm/ Sodium (Chloride) 100 mls @ 100 mls/hr IVPB Q6 [facility] Last Admin: 02/10/17 09:08 Dose: 100 mls/hr Sodium Chloride (Sodium Chloride 0.9%) 500 mls @ 100 mls/hr IV .Q5H [facility] Last Admin: 02/10/17 12:46 Dose: Not Given Sodium Chloride (Sodium Chloride 0.9%) 500 mls @ 70 mls/hr IV .Q7H9M [facility] Last Admin: 02/10/17 09:14 Dose: 70 mls/hr Lidocaine HCl (Lidocaine Hydrochloride Jelly 2% 5 Ml) 1 ml TOP Q8H PRN PRN Reason: Pain, Mild (1-3) Metoprolol Tartrate (Lopressor) 25 mg PO Q12 [facility] Last Admin: 02/10/17 09:08 Dose: 25 mg Ondansetron HCl (Zofran Inj) 4 mg IVP Q6 PRN PRN Reason: Nausea/Vomiting Pantoprazole Sodium (Protonix Ec Tab) 40 mg PO DAILY [facility] Last Admin: 02/10/17 09:09 Dose: 40 mg Sodium Chloride ([place] Nasal [place]) 1 sprays [place] Q4 PRN PRN Reason: Nasal congestion Tramadol HCl (Ultram) 50 mg PO Q4 PRN PRN Reason: Pain, moderate (4-7) Last Admin: 02/09/17 17:05 Dose: 50 mg Zolpidem Tartrate (Ambien) 5 mg PO HS [facility] Last Admin: 02/09/17 21:05 Dose: Not Given Results - Vital Signs Recent Vital Signs: Last Vital Signs Temp 98.2 F 02/10/17 07:29 Pulse 70 02/10/17 09:08 Resp 20 02/10/17 07:29 BP 110/61 02/10/17 09:08 Pulse Ox 95 02/10/17 07:29 - Labs Result Diagrams: 02/10/17 06:30 02/10/17 06:30 Labs: Laboratory Results - last 24 hr 02/09/17 02/10/17 02/10/17 11:50 06:30 06:30 WBC 7.1 RBC 3.80 L Hgb 9.8 L Hct 29.8 L MCV 78.5 L D MCH 25.7 L MCHC 32.7 L RDW 19.9 H Plt Count 376 MPV 7.1 L Neut % (Auto) 77.2 H Lymph % (Auto) 9.3 L [place] % (Auto) 12.7 H Eos % (Auto) 0.0 Baso % (Auto) 0.8 Neut # 5.5 Lymph # 0.7 L [place] # 0.9 H Eos # 0.0 Baso # 0.1 Neutrophils % (Manual) 73 Lymphocytes % (Manual) 12 L Reactive Lymphs % 2 H Monocytes % (Manual) 13 H Platelet Estimate Normal Polychromasia Slight Hypochromasia (manual) Slight Poikilocytosis (manual Slight Anisocytosis (manual) Moderate Tear Drop Cells Slight Ovalocytes Slight Sodium 136 Potassium 3.6 Chloride 101 Carbon Dioxide 26 Anion Gap 13 BUN 22 H Creatinine 1.0 Est GFR ( Amer) > 60 Est GFR (Non-Af Amer) > 60 Random Glucose 95 Calcium 9.6 Blood Type O POSITIVE Antibody Screen Negative Crossmatch See Detail BBK History Checked Patient has bt Assessment & Plan - Assessment and Plan (Free Text) Plan: - Will schedule for biopsy in the OR on 02/12/17 - Continue care as per medical team - Will follow
[2017-02-10 12:04] LABS: NEUTROPHIL 73 % (42-75); REACTIVE LYMPHOCYTES 2 % (0-0); TOTAL CELLS COUNTED 100
--- NOTE | 2017-02-10 12:58 | CP.PCM.PN ---
Subjective - Date & Time of Evaluation Date of Evaluation: 02/10/17 Time of Evaluation: 12:48 - Subjective Subjective: Pt is afebrile. He c/o some pain in the forefinger of his right hand,. This had been lanced be He is on te 2nd day . He fore and since then had dried up. This eschar however is black and growing larger.. Will get surgery to see him. he is on the second day of etoposide Objective - Vital Signs/Intake and Output Vital Signs (last 24 hours): Temp Pulse Resp BP Pulse Ox 98.2 F 70 20 110/61 95 02/10/17 07:29 02/10/17 09:08 02/10/17 07:29 02/10/17 09:08 02/10/17 07:29 - Medications Medications: Current Medications Acetaminophen (Tylenol 325mg Tab) 650 mg PO Q6 PRN PRN Reason: Fever >100.4 F Acetaminophen (Tylenol 325mg Tab) 650 mg PO Q6 PRN PRN Reason: Fever >100.4 F Al Hydrox/Mg Hydrox/Simethicone (Maalox Plus 30 Ml) 30 ml PO Q6 PRN PRN Reason: Indigestion / Heartburn Bacitracin (Bacitracin) [address] [facility] Last Admin: 02/10/17 09:10 Dose: 1 ea Diphenhydramine HCl (Benadryl) 25 mg PO HS [facility] Last Admin: 02/09/17 21:15 Dose: 25 mg Docusate Sodium (Colace) 100 mg PO BID [facility] Last Admin: 02/10/17 09:09 Dose: 100 mg Enoxaparin Sodium (Lovenox) 40 mg SC DAILY [facility] PRN Reason: Protocol Last Admin: 02/10/17 09:07 Dose: 40 mg Fluconazole (Diflucan) 200 mg PO DAILY [facility] PRN Reason: Protocol Last Admin: 02/10/17 09:09 Dose: 200 mg Hydrochlorothiazide (Hydrodiuril) [address] [facility] Last Admin: 02/10/17 09:09 Dose: 25 mg Nafcillin Sodium 2 gm/ Sodium (Chloride) 100 mls @ 100 mls/hr IVPB Q6 [facility] Last Admin: 02/10/17 09:08 Dose: 100 mls/hr Sodium Chloride (Sodium Chloride 0.9%) 500 mls @ 100 mls/hr IV .Q5H [facility] Last Admin: 02/10/17 12:46 Dose: Not Given Sodium Chloride (Sodium Chloride 0.9%) 500 mls @ 70 mls/hr IV .Q7H9M [facility] Last Admin: 02/10/17 09:14 Dose: 70 mls/hr Lidocaine HCl (Lidocaine Hydrochloride Jelly 2% 5 Ml) 1 ml TOP Q8H PRN PRN Reason: Pain, Mild (1-3) Metoprolol Tartrate (Lopressor) [address] [facility] Last Admin: 02/10/17 09:08 Dose: 25 mg Ondansetron HCl (Zofran Inj) 4 mg IVP Q6 PRN PRN Reason: Nausea/Vomiting Pantoprazole Sodium (Protonix Ec Tab) [address] [facility] Last Admin: 02/10/17 09:09 Dose: 40 mg Sodium Chloride ([place] Nasal [place]) 1 sprays [place] Q4 PRN PRN Reason: Nasal congestion Tramadol HCl (Ultram) 50 mg PO Q4 PRN PRN Reason: Pain, moderate (4-7) Last Admin: 02/09/17 17:05 Dose: 50 mg Zolpidem Tartrate (Ambien) [address] [facility] Last Admin: 02/09/17 21:05 Dose: Not Given - Labs Labs: 02/10/17 06:30 02/10/17 06:30 PT 16.6 Seconds (9.8-13.1) H 02/09/17 11:40 INR 1.5 (0.9-1.2) H 02/09/17 11:40 APTT 37.8 Seconds (25.6-37.1) H 02/09/17 11:40
--- NOTE | 2017-02-10 15:11 | RAD ---
PROCEDURE: Left Knee Radiographs. HISTORY: Pain. COMPARISON: 01/31/2017 FINDINGS: BONES: Status post left TKR. No osseous fracture. JOINTS: No evidence of prosthesis loosening. JOINT EFFUSION: None. OTHER FINDINGS: None. IMPRESSION: Left TKR.
[2017-02-11] MEDS: Sodium Chloride 0.9% 500 ML IV SCH ×8 (03:57→18:38)
[2017-02-11] MEDS: Nafcillin 2 GM in Sodium Chloride 0.9% 100 ML IVPB SCH ×4 (04:03→21:01)
[2017-02-11 07:11] LABS: BASO % 0.6 % (0.0-2.0); HEMATOCRIT 28.9 % (35.0-51.0); LYMPH # 0.8 K/uL (1.0-4.3); LYMPH % 12.4 % (20.0-40.0); MEAN CELL VOLUME 78.2 fl (80.0-94.0); MEAN CORPUSCULAR HEMOGLOBIN 26.4 pg (27.0-31.0); MEAN CORPUSCULAR HGB CONC 33.7 g/dL (33.0-37.0); MEAN PLATELET VOLUME 7.2 fl (7.2-11.7); MONO # 0.4 K/uL (0.0-0.8); MONO % 6.1 % (0.0-10.0); NEUT # 5.4 K/uL (1.8-7.0); NEUT % 80.9 % (50.0-75.0); RED CELL DISTRIBUTION WIDTH 20.5 % (11.5-14.5); WHITE BLOOD COUNT 6.7 K/uL (4.8-10.8)
[2017-02-11 07:34] LABS: ALB/GLOB RATIO 0.9 (1.0-2.1); BILIRUBIN,TOTAL 0.8 mg/dl (0.2-1.3); CALCIUM 9.7 mg/dL (8.4-10.2); POTASSIUM 3.7 MMOL/L (3.6-5.0); TOTAL PROTEIN 5.2 G/DL (6.3-8.2)
[2017-02-11] MEDS ORDERED: Dexamethasone 10 MG in Sodium Chloride 0.9% 50 ML IVPB ONE (07:38)
--- NOTE | 2017-02-11 07:50 | CP.PCM.PN ---
<JayRamona - Last Filed: 02/11/17 14:42> Subjective - Date & Time of Evaluation Date of Evaluation: 02/11/17 Time of Evaluation: 08:20 - Subjective Subjective: 76 y/o male seen at bedside this morning on med/surg unit. Pt states he is feeling alright and slept well. Pt is eager to continue walking more as his knee continues to feel better. Pt states he was seen by the surgery team who wants to take off part of his right index finger skin lesion tomorrow. Pt denies any pain in the right hand index finger. Pt states he is still having his usual back pain, no more or less than yesterday. Pt states he is doing as well as to be expected given the circumstances. Pt denies F/C/N/V/CP/SOB. Objective - Vital Signs/Intake and Output Vital Signs (last 24 hours): Temp Pulse Resp BP Pulse Ox 97.5 F L 65 18 128/80 98 02/11/17 00:29 02/11/17 00:29 02/11/17 00:29 02/11/17 00:29 02/11/17 00:29 Intake and Output: 02/11/17 02/11/17 06:59 18:59 Intake Total 1190 Output Total 800 Balance 390 - Medications Medications: Current Medications Acetaminophen (Tylenol 325mg Tab) 650 mg PO Q6 PRN PRN Reason: Fever >100.4 F Acetaminophen (Tylenol 325mg Tab) 650 mg PO Q6 PRN PRN Reason: Fever >100.4 F Al Hydrox/Mg Hydrox/Simethicone (Maalox Plus 30 Ml) 30 ml PO Q6 PRN PRN Reason: Indigestion / Heartburn Bacitracin (Bacitracin) 1 ea TOP DAILY [facility] Last Admin: 02/10/17 09:10 Dose: 1 ea Diphenhydramine HCl (Benadryl) 25 mg PO HS [facility] Last Admin: 02/10/17 21:33 Dose: 25 mg Docusate Sodium (Colace) 100 mg PO BID [facility] Last Admin: 02/10/17 17:40 Dose: 100 mg Enoxaparin Sodium (Lovenox) 40 mg SC DAILY [facility] PRN Reason: Protocol Last Admin: 02/10/17 09:07 Dose: 40 mg Fluconazole (Diflucan) 200 mg PO DAILY [facility] PRN Reason: Protocol Last Admin: 02/10/17 09:09 Dose: 200 mg Hydrochlorothiazide (Hydrodiuril) 25 mg PO DAILY [facility] Last Admin: 02/10/17 09:09 Dose: 25 mg Nafcillin Sodium 2 gm/ Sodium (Chloride) 100 mls @ 100 mls/hr IVPB Q6 [facility] Last Admin: 02/11/17 04:03 Dose: 100 mls/hr Sodium Chloride (Sodium Chloride 0.9%) 500 mls @ 100 mls/hr IV .Q5H [facility] Last Admin: 02/11/17 03:57 Dose: Not Given Sodium Chloride (Sodium Chloride 0.9%) 500 mls @ 70 mls/hr IV .Q7H9M [facility] Last Admin: 02/11/17 05:28 Dose: 70 mls/hr Dexamethasone 10 mg/ Sodium (Chloride) 51 mls @ 102 mls/hr IVPB ONCE ONE Stop: 02/11/17 08:07 Sodium Chloride (Sodium Chloride 0.9%) 500 mls @ 80 mls/hr IV .Q6H15M [facility] Etoposide 220 mg/ Sodium (Chloride) 511 mls @ 0 mls/hr IV ONCE ONE PRN Reason: As Directed Stop: 02/11/17 07:40 Ondansetron HCl 16 mg/ Sodium (Chloride) 58 mls @ 116 mls/hr IVPB ONCE ONE Stop: 02/11/17 08:05 Lidocaine HCl (Lidocaine Hydrochloride Jelly 2% 5 Ml) 1 ml TOP Q8H PRN PRN Reason: Pain, Mild (1-3) Metoprolol Tartrate (Lopressor) 25 mg PO Q12 [facility] Last Admin: 02/10/17 21:33 Dose: 25 mg Ondansetron HCl (Zofran Inj) 4 mg IVP Q6 PRN PRN Reason: Nausea/Vomiting Last Admin: 02/10/17 21:27 Dose: 4 mg Pantoprazole Sodium (Protonix Ec Tab) 40 mg PO DAILY [facility] Last Admin: 02/10/17 09:09 Dose: 40 mg Sodium Chloride ([place] Nasal [place]) 1 sprays [place] Q4 PRN PRN Reason: Nasal congestion Tramadol HCl (Ultram) 50 mg PO Q4 PRN PRN Reason: Pain, moderate (4-7) Last Admin: 02/10/17 23:02 Dose: 50 mg Zolpidem Tartrate (Ambien) 5 mg PO HS [facility] Last Admin: 02/10/17 21:19 Dose: Not Given - Labs Labs: 02/11/17 06:00 02/11/17 06:00 PT 16.6 Seconds (9.8-13.1) H 02/09/17 11:40 INR 1.5 (0.9-1.2) H 02/09/17 11:40 APTT 37.8 Seconds (25.6-37.1) H 02/09/17 11:40 - Constitutional Appears: Well, Non-toxic, No Acute Distress - Head Exam Head Exam: ATRAUMATIC, NORMAL INSPECTION, NORMOCEPHALIC - Eye Exam Eye Exam: EOMI, Normal appearance, PERRL Pupil Exam: NORMAL ACCOMODATION, PERRL - ENT Exam ENT Exam: Mucous Membranes Moist, Normal Exam - Neck Exam Neck Exam: Full ROM, Normal Inspection Additional comments: no swollen nodes, non-tender on exam - Respiratory Exam Respiratory Exam: Clear to Ausculation Bilateral Additional comments: decreased breath sounds hear on L side no wheezing or rales - Cardiovascular Exam Cardiovascular Exam: REGULAR RHYTHM, +S1, +S2 Additional comments: no murmur, no gallop, no JVD - GI/Abdominal Exam GI & Abdominal Exam: Soft, Normal Bowel Sounds - Rectal Exam Rectal Exam: Deferred - Extremities Exam Extremities Exam: Normal Capillary Refill Additional comments: -Minimal edema surrounding L knee at site of former effusion. Pt able to perform active L knee flexion and extension with mild pain. No erythema noted to L knee. No cellulitis or increased warmth to area. -Right index finger with palmar skin lesion. Eschar base with overlying skin roof. Soft to palpation. Non-tender. -Right foot ulceration to 2nd digit fully healed at this time. No erythema, no breaks in skin or soft tissue, no maceration, no drainage, no cellulitic changes noted. - Back Exam Back Exam: tenderness Additional comments: tenderness noted to low back on active trunk flexion and extension and upon rotation to side while in bed - Neurological Exam Neurological Exam: Alert, Awake, Oriented x3 Neuro motor strength exam: Left Lower Extremity: 4 (unable to go against full resistance due to pain) - Psychiatric Exam Psychiatric exam: Normal Affect, Normal Mood - Skin Skin Exam: Intact Additional comments: -Circular skin lesion with eschar base and overlying skin roof noted to right hand index finger, with no open wound noted, no drainage, no cellulitis, no erythema, no purulence -no erythema noted to L knee Assessment and Plan - Assessment and Plan (Free Text) Assessment: 1. Metastatic Raúl Carcinoma -Oncology on consult -Chemo initiated 02/09 - Etoposide and Cilistatin -pt receiving second treatment with Etoposide today 2. Right hand index finger dry skin lesion -hx of wound culture (+) for Enterococcus Faecalis from right hand index finger skin lesion -Surgery on consult, Dr Anglin -surgery plans to biopsy in OR on 02/12 -NPO order in for after midnight 3. Left knee effusion /infection, improved -Ortho consult for Dr. Del Angel -13 days s/p knee arthroscopy with I&D -3 cultures + for MSSA -Pt will continue on IV Nafcillin for minimum of 6 weeks -X-ray L knee on 02/10 shows no joint effusion, no evidence of prosthesis loosening, no acute osseous process 4. Chronic anemia, secondary to malignancy -Pt transfused 2 units yesterday -Hgb up to 9.8 from 8.2 after 2 units given -Hgb today at 9.7 -will monitor and transfuse as needed 5. Pneumonia ruled out -CT of chest shows no acute infiltrate however noted multiple pulmonary nodules and pleural based soft tissue mass -Blood c/s: negative -Pulmonology Dr Rodriguez on consult -Mycoplasma Ag IG + however, IgM neg -Strep Ag negative 6. Pancytopenia secondary to chemotherapy -Neutropenia resolved with Granix -Heme/Oncology - Dr Donny Hoyt on consult -Granix to be resumed tomorrow after completion of last dose of chemo cycle with Etoposide today 7.Hypertension, chronic -BP stable -cont Metoprolol 8. Right 2nd Toe Ulcer, resolved -Ulceration fully healed with no clinical signs of infection -Podiatry signed off at this time -Pt on IV abx 9. DVT prophylaxis -continue Lovenox <Xena Morales - Last Filed: 02/11/17 17:04> Objective - Vital Signs/Intake and Output Vital Signs (last 24 hours): Temp Pulse Resp BP Pulse Ox 97.5 F L 76 20 131/77 93 L 02/11/17 16:12 02/11/17 16:12 02/11/17 16:12 02/11/17 16:12 02/11/17 16:12 Intake and Output: 02/11/17 02/11/17 06:59 18:59 Intake Total 1190 Output Total 800 Balance 390 - Medications Medications: Current Medications Acetaminophen (Tylenol 325mg Tab) 650 mg PO Q6 PRN PRN Reason: Fever >100.4 F Acetaminophen (Tylenol 325mg Tab) 650 mg PO Q6 PRN PRN Reason: Fever >100.4 F Al Hydrox/Mg Hydrox/Simethicone (Maalox Plus 30 Ml) 30 ml PO Q6 PRN PRN Reason: Indigestion / Heartburn Bacitracin (Bacitracin) 1 ea TOP DAILY [facility] Last Admin: 02/11/17 10:17 Dose: 1 ea Diphenhydramine HCl (Benadryl) 25 mg PO HS [facility] Last Admin: 02/10/17 21:33 Dose: 25 mg Docusate Sodium (Colace) 100 mg PO BID [facility] Last Admin: 02/11/17 08:34 Dose: 100 mg Enoxaparin Sodium (Lovenox) 40 mg SC DAILY [facility] PRN Reason: Protocol Last Admin: 02/11/17 08:34 Dose: 40 mg Fluconazole (Diflucan) 200 mg PO DAILY [facility] PRN Reason: Protocol Last Admin: 02/11/17 08:34 Dose: 200 mg Hydrochlorothiazide (Hydrodiuril) 25 mg PO DAILY [facility] Last Admin: 02/11/17 09:36 Dose: 25 mg Nafcillin Sodium 2 gm/ Sodium (Chloride) 100 mls @ 100 mls/hr IVPB Q6 [facility] Last Admin: 02/11/17 09:36 Dose: 100 mls/hr Sodium Chloride (Sodium Chloride 0.9%) 500 mls @ 100 mls/hr IV .Q5H [facility] Last Admin: 02/11/17 03:57 Dose: Not Given Sodium Chloride (Sodium Chloride 0.9%) 500 mls @ 70 mls/hr IV .Q7H9M [facility] Last Admin: 02/11/17 05:28 Dose: 70 mls/hr Sodium Chloride (Sodium Chloride 0.9%) 500 mls @ 80 mls/hr IV .Q6H15M [facility] Last Admin: 02/11/17 09:07 Dose: 80 mls/hr Lidocaine HCl (Lidocaine Hydrochloride Jelly 2% 5 Ml) 1 ml TOP Q8H PRN PRN Reason: Pain, Mild (1-3) Metoprolol Tartrate (Lopressor) 25 mg PO Q12 [facility] Last Admin: 02/11/17 08:35 Dose: 25 mg Ondansetron HCl (Zofran Inj) 4 mg IVP Q6 PRN PRN Reason: Nausea/Vomiting Last Admin: 02/11/17 15:21 Dose: 4 mg Pantoprazole Sodium (Protonix Ec Tab) 40 mg PO DAILY [facility] Last Admin: 02/11/17 08:35 Dose: 40 mg Sodium Chloride ([place] Nasal [place]) 1 sprays [place] Q4 PRN PRN Reason: Nasal congestion Tramadol HCl (Ultram) 50 mg PO Q4 PRN PRN Reason: Pain, moderate (4-7) Last Admin: 02/10/17 23:02 Dose: 50 mg Zolpidem Tartrate (Ambien) 5 mg PO HS [facility] Last Admin: 02/10/17 21:19 Dose: Not Given - Labs Labs: 02/11/17 06:00 02/11/17 06:00 PT 16.6 Seconds (9.8-13.1) H 02/09/17 11:40 INR 1.5 (0.9-1.2) H 02/09/17 11:40 APTT 37.8 Seconds (25.6-37.1) H 02/09/17 11:40 Attending/Attestation - Attestation I have personally seen and examined this patient.: Yes I have fully participated in the care of the patient.: Yes I have reviewed all pertinent clinical information, including history, physical exam and plan: Yes Notes (Text): Metastatic [place] Cell CA - on 3rd day of chromotherapy -discussed with dr Donny hoyt - rec 3 days of Granix post chemotherapy -[facility] arrangement made and [facility] agreed to give Granix Right Index finger Lesion - lesion recurrent -for Biopsy of finger by Dr Anglin tomorrow Left knee Infection/Effusion -cont IV Nafcillin to complete 6 wks treatment - plan for d/c to [facility] to have PT and the IV abx Anemia , sec to CA/Chemotherapy -transfused 2 units PRBC
[2017-02-11] MEDS ORDERED: APREPITANT 80 MG CAP PO ONE (08:15)
--- NOTE | 2017-02-11 08:17 | PQF GENQUE ---
Dr. Morales, Pancytopenia resolved during the previous admission? OR: Disagree OR: Other explantion of clinical finding H and P: Pancytopenia secondary to chemotherapy, improved -Neutropenia resolved with Granix -Heme/Oncology - Dr Donny Logan on consult; -Pt transfused 2 units yesterday -Hgb up to 9.8 from 8.2----Addendum note: Anemia, chronic sec to CA and also due to Chemotx WBC:8.6->7.1->6.7 RBC:3.20->3.80->3.69 PLT.:[id number] This form is a permanent part of the medical record Clarification of your documentation is requested to better reflect the severity of illness and intensity of treatment of your patient. Indicators present [] Specify: [] [] Specify: [] [] Specify: [] [] Specify: [] Location in the medical record that reflects the above clinical findings: [] Treatment Provided: [] PHYSICIAN'S RESPONSE Pancytopenia improved on previous admission This admission: Anemia , chronic sec to malignancy/Chemo Based on your medical judgment of the clinical indicators outlined above please clarify the following: [] Practitioner response [] If unable to determine, please check the box, sign and date. Present On Admission (POA) Indicator: [] Present at the time of admission [] Not present at the time of admission [] Clinically Undetermined In responding to this query, please exercise your independent professional judgment. The fact that a question is asked does not imply that any particular answer is desired or expected. Thank you for your clarification on this documentation. If you have any questions please call. * Thank you, Sharona Norwood RN BSN ext. #[phone]: Ashley Reilly RN MTDD
[2017-02-11] MEDS: Enoxaparin 40 mg Syringe SC SCH (08:34)
[2017-02-11] MEDS: Pantoprazole 40 mg EC Tab PO SCH (08:35)
--- NOTE | 2017-02-11 09:56 | CP.PCM.PN ---
Subjective - Date & Time of Evaluation Date of Evaluation: 02/11/17 Time of Evaluation: 09:47 - Subjective Subjective: Appears to be doing relatively well. Feels he has gotten stronger during this hospital stay. No immediate ill effects of present cycle of chemotherapy. Will have last dose of this cycle today and receive Granix afterwards. Left knee swelling is gone, no erythema or warmth. Plan for extended antibiotic course. Will discuss further with oncology. Objective - Vital Signs/Intake and Output Vital Signs (last 24 hours): Temp Pulse Resp BP Pulse Ox 97.5 F L 68 18 126/72 95 02/11/17 08:17 02/11/17 08:17 02/11/17 08:17 02/11/17 08:35 02/11/17 08:17 Intake and Output: 02/10/17 02/11/17 23:59 11:59 Intake Total 1710 1190 Output Total 550 800 Balance 1160 390 - Medications Medications: Current Medications Acetaminophen (Tylenol 325mg Tab) 650 mg PO Q6 PRN PRN Reason: Fever >100.4 F Acetaminophen (Tylenol 325mg Tab) 650 mg PO Q6 PRN PRN Reason: Fever >100.4 F Al Hydrox/Mg Hydrox/Simethicone (Maalox Plus 30 Ml) 30 ml PO Q6 PRN PRN Reason: Indigestion / Heartburn Bacitracin (Bacitracin) 1 ea TOP DAILY [facility] Last Admin: 02/10/17 09:10 Dose: 1 ea Diphenhydramine HCl (Benadryl) 25 mg PO HS [facility] Last Admin: 02/10/17 21:33 Dose: 25 mg Docusate Sodium (Colace) 100 mg PO BID [facility] Last Admin: 02/11/17 08:34 Dose: 100 mg Enoxaparin Sodium (Lovenox) 40 mg SC DAILY [facility] PRN Reason: Protocol Last Admin: 02/11/17 08:34 Dose: 40 mg Fluconazole (Diflucan) 200 mg PO DAILY [facility] PRN Reason: Protocol Last Admin: 02/11/17 08:34 Dose: 200 mg Hydrochlorothiazide (Hydrodiuril) 25 mg PO DAILY [facility] Last Admin: 02/11/17 09:36 Dose: 25 mg Nafcillin Sodium 2 gm/ Sodium (Chloride) 100 mls @ 100 mls/hr IVPB Q6 [facility] Last Admin: 02/11/17 09:36 Dose: 100 mls/hr Sodium Chloride (Sodium Chloride 0.9%) 500 mls @ 100 mls/hr IV .Q5H [facility] Last Admin: 02/11/17 03:57 Dose: Not Given Sodium Chloride (Sodium Chloride 0.9%) 500 mls @ 70 mls/hr IV .Q7H9M [facility] Last Admin: 02/11/17 05:28 Dose: 70 mls/hr Sodium Chloride (Sodium Chloride 0.9%) 500 mls @ 80 mls/hr IV .Q6H15M [facility] Last Admin: 02/11/17 09:07 Dose: 80 mls/hr Etoposide 220 mg/ Sodium (Chloride) 511 mls @ 340.667 mls/hr IV ONCE ONE PRN Reason: As Directed Stop: 02/11/17 10:29 Lidocaine HCl (Lidocaine Hydrochloride Jelly 2% 5 Ml) 1 ml TOP Q8H PRN PRN Reason: Pain, Mild (1-3) Metoprolol Tartrate (Lopressor) 25 mg PO Q12 [facility] Last Admin: 02/11/17 08:35 Dose: 25 mg Ondansetron HCl (Zofran Inj) 4 mg IVP Q6 PRN PRN Reason: Nausea/Vomiting Last Admin: 02/10/17 21:27 Dose: 4 mg Pantoprazole Sodium (Protonix Ec Tab) 40 mg PO DAILY [facility] Last Admin: 02/11/17 08:35 Dose: 40 mg Sodium Chloride ([place] Nasal [place]) 1 sprays [place] Q4 PRN PRN Reason: Nasal congestion Tramadol HCl (Ultram) 50 mg PO Q4 PRN PRN Reason: Pain, moderate (4-7) Last Admin: 02/10/17 23:02 Dose: 50 mg Zolpidem Tartrate (Ambien) 5 mg PO HS [facility] Last Admin: 02/10/17 21:19 Dose: Not Given - Labs Labs: 02/11/17 06:00 02/11/17 06:00 PT 16.6 Seconds (9.8-13.1) H 02/09/17 11:40 INR 1.5 (0.9-1.2) H 02/09/17 11:40 APTT 37.8 Seconds (25.6-37.1) H 02/09/17 11:40 Assessment and Plan (1) Raúl cell carcinoma Status: Chronic (2) Metastatic carcinoma Status: Chronic (3) Lesion of finger Status: Acute
[2017-02-11] MEDS: Bacitracin 500 Units/gm Oint Foilpak UD TOP SCH (10:17)
--- NOTE | 2017-02-11 12:26 | CP.PCM.PN ---
Subjective - Date & Time of Evaluation Date of Evaluation: 02/11/17 Time of Evaluation: 12:23 - Subjective Subjective: Pt is doing well but is tired of being in the hospital. He gets his last dose of etoposide today.He will be started on granix tomorrow. Objective - Vital Signs/Intake and Output Vital Signs (last 24 hours): Temp Pulse Resp BP Pulse Ox 97.5 F L 68 18 126/72 95 02/11/17 08:17 02/11/17 08:17 02/11/17 08:17 02/11/17 08:35 02/11/17 08:17 Intake and Output: 02/11/17 02/11/17 06:59 18:59 Intake Total 1190 Output Total 800 Balance 390 - Medications Medications: Current Medications Acetaminophen (Tylenol 325mg Tab) 650 mg PO Q6 PRN PRN Reason: Fever >100.4 F Acetaminophen (Tylenol 325mg Tab) 650 mg PO Q6 PRN PRN Reason: Fever >100.4 F Al Hydrox/Mg Hydrox/Simethicone (Maalox Plus 30 Ml) 30 ml PO Q6 PRN PRN Reason: Indigestion / Heartburn Bacitracin (Bacitracin) 1 ea TOP DAILY [facility] Last Admin: 02/11/17 10:17 Dose: 1 ea Diphenhydramine HCl (Benadryl) 25 mg PO HS [facility] Last Admin: 02/10/17 21:33 Dose: 25 mg Docusate Sodium (Colace) 100 mg PO BID [facility] Last Admin: 02/11/17 08:34 Dose: 100 mg Enoxaparin Sodium (Lovenox) 40 mg SC DAILY [facility] PRN Reason: Protocol Last Admin: 02/11/17 08:34 Dose: 40 mg Fluconazole (Diflucan) 200 mg PO DAILY [facility] PRN Reason: Protocol Last Admin: 02/11/17 08:34 Dose: 200 mg Hydrochlorothiazide (Hydrodiuril) 25 mg PO DAILY [facility] Last Admin: 02/11/17 09:36 Dose: 25 mg Nafcillin Sodium 2 gm/ Sodium (Chloride) 100 mls @ 100 mls/hr IVPB Q6 [facility] Last Admin: 02/11/17 09:36 Dose: 100 mls/hr Sodium Chloride (Sodium Chloride 0.9%) 500 mls @ 100 mls/hr IV .Q5H [facility] Last Admin: 10/25/17 03:57 Dose: Not Given Sodium Chloride (Sodium Chloride 0.9%) 500 mls @ 70 mls/hr IV .Q7H9M [facility] Last Admin: 02/11/17 05:28 Dose: 70 mls/hr Sodium Chloride (Sodium Chloride 0.9%) 500 mls @ 80 mls/hr IV .Q6H15M [facility] Last Admin: 02/11/17 09:07 Dose: 80 mls/hr Lidocaine HCl (Lidocaine Hydrochloride Jelly 2% 5 Ml) 1 ml TOP Q8H PRN PRN Reason: Pain, Mild (1-3) Metoprolol Tartrate (Lopressor) 25 mg PO Q12 [facility] Last Admin: 02/11/17 08:35 Dose: 25 mg Ondansetron HCl (Zofran Inj) 4 mg IVP Q6 PRN PRN Reason: Nausea/Vomiting Last Admin: 02/10/17 21:27 Dose: 4 mg Pantoprazole Sodium (Protonix Ec Tab) 40 mg PO DAILY [facility] Last Admin: 02/11/17 08:35 Dose: 40 mg Sodium Chloride ([place] Nasal [place]) 1 sprays [place] Q4 PRN PRN Reason: Nasal congestion Tramadol HCl (Ultram) 50 mg PO Q4 PRN PRN Reason: Pain, moderate (4-7) Last Admin: 02/10/17 23:02 Dose: 50 mg Zolpidem Tartrate (Ambien) 5 mg PO HS [facility] Last Admin: 02/10/17 21:19 Dose: Not Given - Labs Labs: 02/11/17 06:00 02/11/17 06:00 PT 16.6 Seconds (9.8-13.1) H 02/09/17 11:40 INR 1.5 (0.9-1.2) H 02/09/17 11:40 APTT 37.8 Seconds (25.6-37.1) H 02/09/17 11:40
--- NOTE | 2017-02-11 17:59 | CP.PCM.PN ---
Subjective - Date & Time of Evaluation Date of Evaluation: 02/11/17 Time of Evaluation: 05:55 - Subjective Subjective: S- pt with no complaints referable to L knee Objective - Vital Signs/Intake and Output Vital Signs (last 24 hours): Temp Pulse Resp BP Pulse Ox 97.5 F L 76 20 131/77 93 L 02/11/17 16:12 02/11/17 16:12 02/11/17 16:12 02/11/17 16:12 02/11/17 16:12 Intake and Output: 02/11/17 02/11/17 06:59 18:59 Intake Total 1190 Output Total 800 Balance 390 - Medications Medications: Current Medications Acetaminophen (Tylenol 325mg Tab) 650 mg PO Q6 PRN PRN Reason: Fever >100.4 F Acetaminophen (Tylenol 325mg Tab) 650 mg PO Q6 PRN PRN Reason: Fever >100.4 F Al Hydrox/Mg Hydrox/Simethicone (Maalox Plus 30 Ml) 30 ml PO Q6 PRN PRN Reason: Indigestion / Heartburn Bacitracin (Bacitracin) 1 ea TOP DAILY [facility] Last Admin: 02/11/17 10:17 Dose: 1 ea Diphenhydramine HCl (Benadryl) 25 mg PO HS [facility] Last Admin: 02/10/17 21:33 Dose: 25 mg Docusate Sodium (Colace) 100 mg PO BID [facility] Last Admin: 02/11/17 17:13 Dose: 100 mg Enoxaparin Sodium (Lovenox) 40 mg SC DAILY [facility] PRN Reason: Protocol Last Admin: 02/11/17 08:34 Dose: 40 mg Fluconazole (Diflucan) 200 mg PO DAILY [facility] PRN Reason: Protocol Last Admin: 02/11/17 08:34 Dose: 200 mg Hydrochlorothiazide (Hydrodiuril) 25 mg PO DAILY [facility] Last Admin: 02/11/17 09:36 Dose: 25 mg Nafcillin Sodium 2 gm/ Sodium (Chloride) 100 mls @ 100 mls/hr IVPB Q6 [facility] Last Admin: 02/11/17 17:13 Dose: 100 mls/hr Sodium Chloride (Sodium Chloride 0.9%) 500 mls @ 100 mls/hr IV .Q5H [facility] Last Admin: 02/11/17 17:31 Dose: Not Given Sodium Chloride (Sodium Chloride 0.9%) 500 mls @ 70 mls/hr IV .Q7H9M [facility] Last Admin: 02/11/17 05:28 Dose: 70 mls/hr Sodium Chloride (Sodium Chloride 0.9%) 500 mls @ 80 mls/hr IV .Q6H15M [facility] Last Admin: 02/11/17 17:31 Dose: Not Given Lidocaine HCl (Lidocaine Hydrochloride Jelly 2% 5 Ml) 1 ml TOP Q8H PRN PRN Reason: Pain, Mild (1-3) Metoprolol Tartrate (Lopressor) 25 mg PO Q12 [facility] Last Admin: 02/11/17 08:35 Dose: 25 mg Ondansetron HCl (Zofran Inj) 4 mg IVP Q6 PRN PRN Reason: Nausea/Vomiting Last Admin: 02/11/17 15:21 Dose: 4 mg Pantoprazole Sodium (Protonix Ec Tab) 40 mg PO DAILY [facility] Last Admin: 02/11/17 08:35 Dose: 40 mg Sodium Chloride ([place] Nasal [place]) 1 sprays [place] Q4 PRN PRN Reason: Nasal congestion Tramadol HCl (Ultram) 50 mg PO Q4 PRN PRN Reason: Pain, moderate (4-7) Last Admin: 02/10/17 23:02 Dose: 50 mg Zolpidem Tartrate (Ambien) 5 mg PO HS [facility] Last Admin: 02/10/17 21:19 Dose: Not Given - Labs Labs: 02/11/17 06:00 02/11/17 06:00 PT 16.6 Seconds (9.8-13.1) H 02/09/17 11:40 INR 1.5 (0.9-1.2) H 02/09/17 11:40 APTT 37.8 Seconds (25.6-37.1) H 02/09/17 11:40 - Additional Findings Additional findings: Objective systemic unchanged please refer tyo notes of DR Hines and DR Luciana Logan Musculoskekeltal stance gait defrred evaluation accomplished at bedside pt with absolutely no pain L knee wound well healed N/V intact no gross/progresive deficits Assessment and Plan - Assessment and Plan (Free Text) Assessment: A- subacute L knee sepsis s/p successful TKR P- continue conservative mgmt IV abios ROM No indication ofr component removal at this point in time
[2017-02-12] MEDS: Sodium Chloride 0.9% 500 ML IV SCH ×6 (01:44→04:00)
[2017-02-12] MEDS: Nafcillin 2 GM in Sodium Chloride 0.9% 100 ML IVPB SCH ×3 (03:13→17:55)
[2017-02-12 05:52] LABS: BASO % 0.2 % (0.0-2.0); HEMATOCRIT 28.3 % (35.0-51.0); LYMPH # 0.9 K/uL (1.0-4.3); LYMPH % 14.9 % (20.0-40.0); MEAN CELL VOLUME 78.7 fl (80.0-94.0); MEAN CORPUSCULAR HEMOGLOBIN 26.1 pg (27.0-31.0); MEAN CORPUSCULAR HGB CONC 33.2 g/dL (33.0-37.0); MEAN PLATELET VOLUME 7.1 fl (7.2-11.7); MONO # 0.1 K/uL (0.0-0.8); MONO % 1.3 % (0.0-10.0); NEUT % 83.6 % (50.0-75.0)
[2017-02-12 06:06] LABS: CALCIUM 9.7 mg/dL (8.4-10.2); POTASSIUM 3.7 MMOL/L (3.6-5.0)
[2017-02-12 06:53] LABS: PARTIAL THROMBOPLASTIN TIME 30.6 Seconds (25.6-37.1)
[2017-02-12] MEDS: Pantoprazole 40 mg EC Tab PO SCH (08:58)
[2017-02-12] MEDS ORDERED: Bacitracin OINT 15GM TOP SCH (09:00)
--- NOTE | 2017-02-12 10:18 | CP.PCM.PN ---
Subjective - Date & Time of Evaluation Date of Evaluation: 02/12/17 Time of Evaluation: 10:13 - Subjective Subjective: Pt is afebrile tolerated his chemotherapy well. Will give him 3 days of granix because the last time he got very neutropenic after the chemotherapy.. He is going to the OR for cleaning of the right forefinger wound. Objective - Vital Signs/Intake and Output Vital Signs (last 24 hours): Temp Pulse Resp BP Pulse Ox 97.8 F 68 20 153/84 H 96 02/12/17 08:04 02/12/17 08:57 02/12/17 08:04 02/12/17 08:57 02/12/17 08:04 Intake and Output: 02/12/17 02/12/17 06:59 18:59 Intake Total 1140 Output Total 1050 Balance 90 - Medications Medications: Current Medications Acetaminophen (Tylenol 325mg Tab) 650 mg PO Q6 PRN PRN Reason: Fever >100.4 F Acetaminophen (Tylenol 325mg Tab) 650 mg PO Q6 PRN PRN Reason: Fever >100.4 F Al Hydrox/Mg Hydrox/Simethicone (Maalox Plus 30 Ml) 30 ml PO Q6 PRN PRN Reason: Indigestion / Heartburn Bacitracin (Bacitracin Oint) 1 applic TOP DAILY [facility] Last Admin: 02/12/17 08:56 Dose: 1 applic Diphenhydramine HCl (Benadryl) 25 mg PO HS [facility] Last Admin: 02/11/17 21:02 Dose: 25 mg Docusate Sodium (Colace) 100 mg PO BID [facility] Last Admin: 02/12/17 08:47 Dose: Not Given Enoxaparin Sodium (Lovenox) 40 mg SC DAILY [facility] PRN Reason: Protocol Last Admin: 02/11/17 08:34 Dose: 40 mg Fluconazole (Diflucan) 200 mg PO DAILY [facility] PRN Reason: Protocol Last Admin: 02/11/17 08:34 Dose: 200 mg Hydrochlorothiazide (Hydrodiuril) 25 mg PO DAILY [facility] Last Admin: 02/12/17 08:56 Dose: 25 mg Nafcillin Sodium 2 gm/ Sodium (Chloride) 100 mls @ 100 mls/hr IVPB Q6 [facility] Last Admin: 02/12/17 09:00 Dose: 100 mls/hr Sodium Chloride (Sodium Chloride 0.9%) 500 mls @ 70 mls/hr IV .Q7H9M [facility] Last Admin: 02/12/17 04:00 Dose: Not Given Sodium Chloride (Sodium Chloride 0.9%) 500 mls @ 80 mls/hr IV .Q6H15M [facility] Last Admin: 02/12/17 03:44 Dose: Not Given Lidocaine HCl (Lidocaine Hydrochloride Jelly 2% 5 Ml) 1 ml TOP Q8H PRN PRN Reason: Pain, Mild (1-3) Metoprolol Tartrate (Lopressor) 25 mg PO Q12 [facility] Last Admin: 02/12/17 08:57 Dose: 25 mg Ondansetron HCl (Zofran Inj) 4 mg IVP Q6 PRN PRN Reason: Nausea/Vomiting Last Admin: 02/11/17 15:21 Dose: 4 mg Pantoprazole Sodium (Protonix Ec Tab) 40 mg PO DAILY [facility] Last Admin: 02/12/17 08:58 Dose: Not Given Sodium Chloride ([place] Nasal Atlas) 1 sprays [place] Q4 PRN PRN Reason: Nasal congestion Tramadol HCl (Ultram) 50 mg PO Q4 PRN PRN Reason: Pain, moderate (4-7) Last Admin: 02/10/17 23:02 Dose: 50 mg Zolpidem Tartrate (Ambien) 5 mg PO HS [facility] Last Admin: 02/10/17 21:19 Dose: Not Given - Labs Labs: 02/12/17 05:00 02/12/17 05:00 PT 12.7 Seconds (9.8-13.1) 02/12/17 05:00 INR 1.1 (0.9-1.2) 02/12/17 05:00 APTT 30.6 Seconds (25.6-37.1) D 02/12/17 05:00
--- NOTE | 2017-02-12 12:32 | CP.PCM.DIS ---
Provider - Provider Date of Admission: 02/09/17 10:13 Attending physician: Xena Morales MD Time Spent in preparation of Discharge (in minutes): 30 Diagnosis - Discharge Diagnosis (1) Lesion of finger Status: Acute Priority: High (2) Cellulitis Status: Acute (3) Knee effusion, left Status: Acute (4) Pneumonia Status: Acute Priority: High (5) Septic arthritis Status: Acute (6) Essential hypertension Status: Chronic Hospital Course - Lab Results Lab Results: Most Recent Lab Values WBC 6.0 K/uL (4.8-10.8) 02/12/17 05:00 RBC 3.60 Mil/uL (4.40-5.90) L 02/12/17 05:00 Hgb 9.4 g/dL (12.0-18.0) L 02/12/17 05:00 Hct 28.3 % (35.0-51.0) L 02/12/17 05:00 MCV 78.7 fl (80.0-94.0) L 02/12/17 05:00 MCH 26.1 pg (27.0-31.0) L 02/12/17 05:00 MCHC 33.2 g/dL (33.0-37.0) 02/12/17 05:00 RDW 20.0 % (11.5-14.5) H 02/12/17 05:00 Plt Count 352 K/uL (130-400) 02/12/17 05:00 MPV 7.1 fl (7.2-11.7) L 02/12/17 05:00 Neut % (Auto) 83.6 % (50.0-75.0) H 02/12/17 05:00 Lymph % (Auto) 14.9 % (20.0-40.0) L 02/12/17 05:00 Foard % (Auto) 1.3 % (0.0-10.0) 02/12/17 05:00 Eos % (Auto) 0.0 % (0.0-4.0) 02/12/17 05:00 Baso % (Auto) 0.2 % (0.0-2.0) 02/12/17 05:00 Neut # 5.0 K/uL (1.8-7.0) 02/12/17 05:00 Lymph # 0.9 K/uL (1.0-4.3) L 02/12/17 05:00 Foard # 0.1 K/uL (0.0-0.8) 02/12/17 05:00 Eos # 0.0 K/uL (0.0-0.7) 02/12/17 05:00 Baso # 0.0 K/uL (0.0-0.2) 02/12/17 05:00 Neutrophils % (Manual) 73 % (42-75) 02/10/17 06:30 Lymphocytes % (Manual) 12 % (20-50) L 02/10/17 06:30 Reactive Lymphs % 2 % (0-0) H 02/10/17 06:30 Monocytes % (Manual) 13 % (0-10) H 02/10/17 06:30 Platelet Estimate Normal (NORMAL) 02/10/17 06:30 Polychromasia Slight 02/10/17 06:30 Hypochromasia (manual) Slight 02/10/17 06:30 Poikilocytosis (manual Slight 02/10/17 06:30 Anisocytosis (manual) Moderate 02/10/17 06:30 Tear Drop Cells Slight 02/10/17 06:30 Ovalocytes Slight 02/10/17 06:30 PT 12.7 Seconds (9.8-13.1) 02/12/17 05:00 INR 1.1 (0.9-1.2) 02/12/17 05:00 APTT 30.6 Seconds (25.6-37.1) D 02/12/17 05:00 Sodium 138 mmol/l (132-148) 02/12/17 05:00 Potassium 3.7 MMOL/L (3.6-5.0) 02/12/17 05:00 Chloride 106 mmol/L (98-107) 02/12/17 05:00 Carbon Dioxide 23 mmol/L (22-30) 02/12/17 05:00 Anion Gap 13 (10-20) 02/12/17 05:00 BUN 37 mg/dl (9-20) H 02/12/17 05:00 Creatinine 1.7 mg/dL (0.8-1.5) H 02/12/17 05:00 Est GFR ( Amer) 47 02/12/17 05:00 Est GFR (Non-Af Amer) 39 02/12/17 05:00 Random Glucose 91 mg/dL (75-110) 02/12/17 05:00 Calcium 9.7 mg/dL (8.4-10.2) 02/12/17 05:00 Magnesium 1.3 MG/DL (1.6-2.3) L 02/09/17 11:40 Total Bilirubin 0.8 mg/dl (0.2-1.3) 02/11/17 06:00 AST 36 U/L (17-59) 02/11/17 06:00 ALT 29 U/L (21-72) 02/11/17 06:00 Alkaline Phosphatase 58 U/L (38-126) 02/11/17 06:00 Total Protein 5.2 G/DL (6.3-8.2) L 02/11/17 06:00 Albumin 2.5 g/dL (3.5-5.0) L 02/11/17 06:00 Globulin 2.7 gm/dL (2.2-3.9) 02/11/17 06:00 Albumin/Globulin Ratio 0.9 (1.0-2.1) L 02/11/17 06:00 Blood Type O POSITIVE 02/09/17 11:50 Antibody Screen Negative 02/09/17 11:50 Crossmatch See Detail 02/09/17 11:50 BBK History Checked Patient has bt 02/09/17 11:50 - Hospital Course Hospital Course: HPI 76 y/o male with PMHx of [place] 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 Pt has remained in the hospital and comes from TCU where he was receiving IV antibiotics for a left knee effusion with + intra-operative MSSA cultures. Pt is now 11 days s/p left knee arthroscopy with I&D with Dr. Del Angel. Pt states he is feeling well today and started chemotherapy yesterday. Pt denies any nausea or vomiting following his treatment. Pt states today that he feels as though he is getting stronger. Pt reports being able to walk around on his own and improved knee mobility. Pt denies any acute events overnight. Pt states the pain in his left knee is decreasing. Pt denies any discomfort to the right foot 2nd digit where he formerly had an ulceration that has since healed. Pt admits to still experiencing chronic low back pain, but is doing fine at this time. Pt denies F/C/N/V/CP/SOB. Pt received 3 days chemo, will receive 3 days Granix, last 2 doses in [facility]. Finger biopsy for today with Dr. Anglin. Stable for discharge to [facility] today. 1. Metastatic Raúl Cell Carcinoma -Oncology on consult -Chemo initiated 02/09 - Etoposide and Cilistatin -discussed with dr Donny hoyt - rec 3 days of Granix post chemotherapy -[facility] arrangement made and [facility] agreed to give Granix 2. Right hand index finger dry skin lesion recurrent -hx of wound culture (+) for Enterococcus Faecalis from right hand index finger skin lesion -Surgery on consult, Dr Anglin -surgery plans to biopsy in OR TODAY -NPO order in for after midnight 3. Left knee effusion /infection, improved -Ortho consult for Dr. Del Angel -13 days s/p knee arthroscopy with I&D -3 cultures + for MSSA -X-ray L knee on 02/10 shows no joint effusion, no evidence of prosthesis loosening, no acute osseous process -cont IV Nafcillin to complete 6 wks treatment -plan for d/c to [facility] to have PT and the IV abx 4. Chronic anemia, secondary to malignancy -Pt transfused 2 units yesterday -Hgb up to 9.8 from 8.2 after 2 units given -Hgb today at 9.7 -will monitor and transfuse as needed 5. Pneumonia ruled out -CT of chest shows no acute infiltrate however noted multiple pulmonary nodules and pleural based soft tissue mass -Blood c/s: negative -Pulmonology Dr Rodriguez on consult -Mycoplasma Ag IG + however, IgM neg -Strep Ag negative 6. Pancytopenia secondary to chemotherapy -Neutropenia resolved with Granix -Heme/Oncology - Dr Donny Hoyt on consult -Granix to be resumed tomorrow after completion of last dose of chemo cycle with Etoposide today 7.Hypertension, chronic -BP stable -cont Metoprolol 8. Right 2nd Toe Ulcer, resolved -Ulceration fully healed with no clinical signs of infection -Podiatry signed off at this time -Pt on IV abx Discharge Exam - Head Exam Head Exam: ATRAUMATIC, NORMAL INSPECTION, NORMOCEPHALIC - Eye Exam Eye Exam: EOMI, Normal appearance, PERRL Pupil Exam: NORMAL ACCOMODATION - ENT Exam ENT Exam: Mucous Membranes Moist, Normal Oropharynx - Neck Exam Neck exam: Full Rom - Respiratory Exam Respiratory Exam: Clear to PA & Lateral, NORMAL BREATHING PATTERN - Cardiovascular Exam Cardiovascular Exam: RRR, +S1, +S2 - GI/Abdominal Exam GI & Abdominal Exam: Normal Bowel Sounds, Soft. absent: Organomegaly, Pulsatile Mass, Tenderness - Extremities Exam Extremities exam: normal capillary refill, pedal pulses present - Back Exam Back exam: absent: CVA tenderness (L), CVA tenderness (R) - Neurological Exam Neurological exam: Alert, Reflexes Normal - Psychiatric Exam Psychiatric exam: Normal Affect, Normal Mood - Skin Skin Exam: Dry, Warm Discharge Plan - Follow Up Plan Condition: GOOD Disposition: TRANSF TO SNF Instructions: Cisplatin (By injection), Etoposide (By injection), Eating During Cancer Treatment (GEN), Preventing Infections (GEN), How to Care for Your Implanted Venous Access Port (GEN), Fatigue (GEN)
--- NOTE | 2017-02-12 15:31 | PQF GENQUE ---
Dr. Sridhar Campoverde, Further clarification of the dx. of Sepsis if in agreement: as follows: Please clarify if sepsis is related to a device Please document suspected or confirmed localized infection Please document suspected or confirmed causative organism if known OR: Disagree OR: Unable to determine H and P: hx of left TKR 3 months ago, seen at bedside on Med/Surg unit. Pt has remained in the hospital and comes from TCU where he was receiving IV antibiotics for a left knee effusion with + intra-operative MSSA cultures. Pt is now 11 days s/p left knee arthroscopy with I D with Dr. Del Angel. Pt states he is feeling well today and started chemotherapy yesterday. 02/11: Orthopedic note: A- subacute L knee sepsis s/p successful TKR This form is a permanent part of the medical record Clarification of your documentation is requested to better reflect the severity of illness and intensity of treatment of your patient. Indicators present [] Specify: [] [] Specify: [] [] Specify: [] [] Specify: [] Location in the medical record that reflects the above clinical findings: [] Treatment Provided: [] PHYSICIAN'S RESPONSE Based on your medical judgment of the clinical indicators outlined above please clarify the following: [] Practitioner response [X] If unable to determine, please check the box, sign and date. Present On Admission (POA) Indicator: [] Present at the time of admission [] Not present at the time of admission [] Clinically Undetermined In responding to this query, please exercise your independent professional judgment. The fact that a question is asked does not imply that any particular answer is desired or expected. Thank you for your clarification on this documentation. If you have any questions please call. * Thank you, Sharona Norwood RN ext. #[phone]: Ashley Reilly RN MTDD
[2017-02-12] MEDS ORDERED: Lidocaine 1% Inj (20ml) ONE (15:55)
[2017-02-12] MEDS ORDERED: ceFAZolin IV 1 gm in Dextrose 0 GM/0 ML BAG IVPB ONE (15:55)
[2017-02-12] MEDS ORDERED: Bupivacaine 0.5% Inj(30mL) ONE (15:55)
[2017-02-12] MEDS ORDERED: Midazolam 2 MG/2 ML VIAL ONE (16:07)
[2017-02-12] MEDS ORDERED: Lactated Ringer's 1,000 ML IV ONE (16:09)
[2017-02-12] MEDS ORDERED: Lidocaine 1% Inj (20ml) IJ ONE (16:20)
[2017-02-12] MEDS ORDERED: Bupivacaine 0.5% 50 ML IJ ONE ×2 (16:20)
[2017-02-12] MEDS ORDERED: Bacitracin Ointment 30 GM TUBE ONE (16:32)
[2017-02-12] MEDS ORDERED: Bacitracin OINT 15GM TOP ONE (16:34)
--- NOTE | 2017-02-12 16:41 | PCM.SURG1 ---
Surgeon's Initial Post Op Note - Surgeon's Notes Surgeon: Dr. Anglin Mineralogy Professor: Dr. Dallas PGY2 Type of Anesthesia: Local Pre-Operative Diagnosis: right index finger skin lesion (palmar side) Operative Findings: see operative report Post-Operative Diagnosis: see operative report Operation Performed: skin biopsy of right index finger lesion Specimen/Specimens Removed: skin Estimated Blood Loss: EBL {In ML}: 1 Blood Products Given: N/A Drains Used: No Drains Post-Op Condition: Good Date of Surgery/Procedure: 02/12/17 Time of Surgery/Procedure: 15:40
[2017-02-12] MEDS ORDERED: Lactated Ringer's 1,000 ML IV SCH (16:45)
[2017-02-12 17:37] VITALS: RESP 20
--- NOTE | 2017-02-12 18:14 | OP ---
PREOPERATIVE DIAGNOSIS: Lesion to the right index finger. POSTOPERATIVE DIAGNOSIS: Lesion to the right index finger. PROCEDURE: Excisional biopsy of the lesion of the right index finger. SURGEON: Alfonso Anglin MD. SHELL FREEZING MACHINE OPERATOR: Burt. TYPE OF ANESTHESIA: Local. ANESTHESIA ADMINISTERED BY: Christina Santiago MD INTRAOPERATIVE FINDINGS: Lesion to the right index finger. IV FLUID: Crystalloids. ESTIMATED BLOOD LOSS: Less than 1 mL. SPECIMEN: Biopsy of the right index finger lesion. BRIEF HISTORY: Mr. 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 The patient presented to the hospital for unrelated reason; however, was found to have a lesion to his right index finger. There was concern and hence the need for surgical consultation. All the risks and benefits of the procedure were explained to the patient and with the patient having a full understanding of all the risks and benefits involved, informed consent was obtained and the patient was taken to the operating room for above-stated procedure. DESCRIPTION OF PROCEDURE: The patient was brought in to the operating room on a stretcher and his right hand was prepped with Betadine and draped in a standard surgical fashion prior to the beginning of the procedure. Time-out was called in the room and everyone in the room were in agreement. Using 1% lidocaine anesthetic, there was a digital block done for the right index finger and subsequent to that, using a pickup and a 15 blade scalpel knife, a small piece was taken from the area of the lesion and passed off to the [place] stand as a specimen. At that point in time, I visualized what appeared to be a small splinter that was removed from the patient's tip of the right index finger and it was passed off as a specimen as well. At that point in time, hemostasis was achieved with electrical cautery and subsequent to that, some Bacitracin was applied to the site of the biopsy and 4x4 and some tape were applied to the incision. The patient was successfully taken back to the recovery room in a stable condition. At the end of the procedure, all instrument counts, needles, and sponges were correct. Alfonso Anglin MD
[2017-02-12 19:46] VITALS: BP 140/86; PULSE 82; TEMP 97.7; O2SAT 97
--- NOTE | 2017-02-13 08:20 | PQF GENQUE ---
Dr. Holley Campoverde, The attending physician is required to clarify conflicting documentation in the medical record. The following documentation is noted in the medical record: Diagnosis 1: Pneumonia: Acute Documented by: Dr. Manuel Campoverde Location: D/C Summary Diagnosis 2: Pneumonia: ruled out Documented by: Dr. Manuel Campoverde Location: D/C Summary Please clarify the appropriate diagnosis for this patient. This form is a permanent part of the medical record Clarification of your documentation is requested to better reflect the severity of illness and intensity of treatment of your patient. Indicators present [] Specify: [] [] Specify: [] [] Specify: [] [] Specify: [] Location in the medical record that reflects the above clinical findings: [] Treatment Provided: [] PHYSICIAN'S RESPONSE Based on your medical judgment of the clinical indicators outlined above please clarify the following: no pneumonia [] Practitioner response [] If unable to determine, please check the box, sign and date. Present On Admission (POA) Indicator: [] Present at the time of admission [] Not present at the time of admission [] Clinically Undetermined In responding to this query, please exercise your independent professional judgment. The fact that a question is asked does not imply that any particular answer is desired or expected. Thank you for your clarification on this documentation. If you have any questions please call. * Thank you, Sharona Norwood RN ext. #[phone]: Ashley Reilly RN MTDD
--- NOTE | 2017-02-13 08:56 | PQF GENQUE ---
Dr.Clara Campoverde, Septic Arthritis is listed in the D/C Summary: site? if treated for this admission versus resolved condition on a previous admission This form is a permanent part of the medical record Clarification of your documentation is requested to better reflect the severity of illness and intensity of treatment of your patient. Indicators present [] Specify: [] [] Specify: [] [] Specify: [] [] Specify: [] Location in the medical record that reflects the above clinical findings: [] Treatment Provided: [] PHYSICIAN'S RESPONSE Based on your medical judgment of the clinical indicators outlined above please clarify the following: L KNEE [] Practitioner response [] If unable to determine, please check the box, sign and date. Present On Admission (POA) Indicator: [] Present at the time of admission [] Not present at the time of admission [] Clinically Undetermined In responding to this query, please exercise your independent professional judgment. The fact that a question is asked does not imply that any particular answer is desired or expected. Thank you for your clarification on this documentation. If you have any questions please call. * Thank you, Sharona Norwood RN ext. #[phone]: Ashley Reilly RN MTDD
== END 2017-02-12 20:00 | DRG 847 ==
LOC: H.MEDSURG1 10:13
PROVIDERS: ADMIT Internal Medicine; ATTEND Internal Medicine
PROC: 3E03305 Introduction of Other Antineoplastic into Peripheral Vein, Percutaneous Approach (ICD-10-PCS; principal; 2017-02-09)
PROC: 30233N1 Transfusion of Nonautologous Red Blood Cells into Peripheral Vein, Percutaneous Approach (ICD-10-PCS; 2017-02-09)
PROC: 0HBFXZX Excision of Right Hand Skin, External Approach, Diagnostic (ICD-10-PCS; 2017-02-12)
DX: Z51.11 Encounter for antineoplastic chemotherapy (principal); C78.01 Secondary malignant neoplasm of right lung; C78.7 Secondary malignant neoplasm of liver and intrahepatic bile duct; C78.02 Secondary malignant neoplasm of left lung; M00.9 Pyogenic arthritis, unspecified; L03.116 Cellulitis of left lower limb; C7A.8 Other malignant neuroendocrine tumors; L98.8 Other specified disorders of the skin and subcutaneous tissue; B95.2 Enterococcus as the cause of diseases classified elsewhere; D63.0 Anemia in neoplastic disease; D64.81 Anemia due to antineoplastic chemotherapy; C4A.9 Merkel cell carcinoma, unspecified; G89.29 Other chronic pain; L97.519 Non-pressure chronic ulcer of other part of right foot with unspecified severity; I10 Essential (primary) hypertension; J44.9 Chronic obstructive pulmonary disease, unspecified; G47.00 Insomnia, unspecified; H91.90 Unspecified hearing loss, unspecified ear; Z96.652 Presence of left artificial knee joint; Z85.828 Personal history of other malignant neoplasm of skin; Z91.19 Patient's noncompliance with other medical treatment and regimen; Z87.891 Personal history of nicotine dependence; Z92.3 Personal history of irradiation

== ENCOUNTER 2017-02-24 09:37 | Inpatient (IN) | payer MEDICARE, OTHER ==
[2017-02-24 09:48] VITALS: BMI 25.7
--- NOTE | 2017-02-24 10:09 | ED PDOC ---
HPI:STROKE - Time Time: 10:06 - Historian Historian: Patient (and Dr. Morales) - Chief Complaint Chief Complaint: Slurred speech - Onset Date: 02/24/17 Time: 09:40 - Timing Timing: Resolved - TPA Positive for Contraindication: Yes Reason tPA is not being Administered: platelets low; unclear if cancer lesion related - Notes: Notes:: Per Dr. Morales, pt. found today to have expressive aphasia so code stroke called. He is not usually like that. Is in tcu recovering from knee surgery, weakness, and getting chemo for cancer. Pt. states he has no pain, weakness, headaches, chest pain, numbness, tingles. Knee pain from recent surgery to the left. Not dizzy. Pt. with some confusion, so limited h and p. NIHSS Stroke Scale - Date/Time Evaluation Performed Date Performed: 02/24/17 Time Performed: 10:09 When Was NIHSS Performed: Re-evaluation - How Severe is the Stroke Level of Consciousness: 0=Alert LOC to Questions: 0=Both comments correct LOC to commands: 0=Obeys both correctly Best Gaze: 0=Normal Visual: 0=No visual loss Facial: 0=Normal Motor Arm - Left: 0=No drift Motor Arm - Right: 0=No drift Motor Leg - Left: 2=Falls before 5 sec Motor Leg - Right: 1=Drift before 5 sec Limb Ataxia: 2=Present both Sensory: 0=Normal Best Language: 0=No aphasia Dysarthia: 0=Normal articulation Extinction & Inattention (Neglect): 0=Normal, no object Score: 5 rTPA Inclusion/Exclusion - Refusal of Treatment Patient Refused Treatment: No - Inclusion Criteria for Altepase Patient is 18 years or Older: Yes The Clinical Diagnosis of Ischemic Stroke That is Causing a Potentially Disabling Neurological Deficit: No Time of Onset is Well Established to be Less Than 270 Minute Before Treatment Would Begin: Yes Risk/Benefit Discussed With Patient/Family Member Present: No Past Medical History Reviewed: Nursing Documentation, Vital Signs - Medical History PMH: Anemia, Anxiety, Arthritis, COPD, Gastritis, HTN, Malignancy (Lung CA), Pneumonia Denies: Asthma, HIV, Chronic Kidney Disease - Surgical History Surgical History: No Surg Hx - Family History Family History: States: Unknown Family Hx - Social History Current smoker - smoking cessation education provided: No Alcohol: None Drugs: Denies - Home Medications Home Medications: Ambulatory Orders Medication Instructions Recorded Acetaminophen [Tylenol 325mg tab] 650 mg PO Q6 PRN tab 01/30/17 Metoprolol Tartrate [Lopressor] 25 mg PO Q12 tab 01/30/17 Acetaminophen [Tylenol 325mg tab] 650 mg PO Q4 PRN 02/18/17 Ferrous Sulfate [Ferosul] 325 mg PO BID 02/18/17 Cefazolin Sodium in 0.9 % NaCl 2 gm IV Q8 #1 plast..bag 02/23/17 [Cefazolin 2 G/100 ml-0.9% NaCl] Lactobacillus Acidophilus [Bacid 1 cap PO BID cap 02/23/17 Acidophilus] Loperamide [Imodium] 2 mg PO QID PRN cap 02/23/17 Menthol/Methyl Salicylate [BenGay] 1 applic TOP QID PRN tube 02/23/17 Nystatin [Nystop Topical Powder] 1 applic TOP TID 02/23/17 Pantoprazole [Protonix EC Tab] 40 mg PO DAILY ect 02/24/17 - Allergies Allergies/Adverse Reactions: Allergies Allergy/AdvReac Type Severity Reaction Status Date / Time No Known Allergies Allergy Verified 01/30/17 15:30 Review of Systems Review Of Systems: ROS cannot be obtained secondary to pt's inabilty to answer questions. Constitutional: Negative for: Fever Respiratory: Negative for: Cough, Shortness of Breath Gastrointestinal: Negative for: Nausea, Vomiting, Abdominal Pain Musculoskeletal: Negative for: Neck Pain Neurological: Positive for: Confusion (off and on). Negative for: Numbness Physical Exam - Reviewed Nursing Documentation Reviewed: Yes Vital Signs Reviewed: Yes - Physical Exam Appears: Positive for: Non-toxic, No Acute Distress Head Exam: Positive for: ATRAUMATIC, NORMAL INSPECTION, NORMOCEPHALIC Skin: Positive for: Normal Color, Warm, DRY Eye Exam: Positive for: EOMI, Normal appearance, PERRL ENT: Positive for: Normal ENT Inspection Neck: Positive for: Normal, Painless ROM, Supple Cardiovascular/Chest: Positive for: Regular Rate, Rhythm Respiratory: Positive for: CNT, Normal Breath Sounds Gastrointestinal/Abdominal: Positive for: Normal Exam, Bowel Sounds, Soft. Negative for: Tenderness Back: Positive for: Normal Inspection. Negative for: L CVA Tenderness, R CVA Tenderness Extremity: Positive for: Tenderness (L knee), Other (2/5 left extremity strength due to pain; 3/5 right extremity strength; L knee with heeling surgical scar). Negative for: Calf Tenderness Neurologic/Psych: Positive for: Alert, Oriented, Other (off and on confusion limited full neuro exam). Negative for: Aphasia, Facial Droop - Laboratory Results Result Diagrams: 02/24/17 10:30 02/24/17 10:30 - ECG ECG: Positive for: Interpreted By Me, Viewed By Me ECG Rhythm: Positive for: Normal QRS (q waves inferior), Normal ST Segment, Sinus Rhythm - Radiology X-Ray: Interpreted by Me, Viewed By Me X-Ray Interpretation: No Acute Disease - Progress ED Course And Treament: 1016: Spoke with Dr. Morales who knows pt. well. States code stroke called due to symptoms and time onset. She spoke with Dr. Shine who states no thrombolytics. Spoke with radiologist Dr. Leonard. Possible lesion from mets in occipital parietal area. Will get MRI. Dr. Morales will admit. 1115: Stable. Spoke with Dr. Del Angel. Made aware of presentation and findings. Wants x-ray knee. Disposition - Clinical Impression Clinical Impression: CVA (cerebral vascular accident), Metastatic cancer - Patient ED Disposition Is Patient to be Admitted: Yes Counseled Patient/Family Regarding: Diagnosis - Disposition Disposition Time: 10:19 Condition: FAIR
--- NOTE | 2017-02-24 10:21 | CT ---
PROCEDURE: CT HEAD WITHOUT CONTRAST. HISTORY: r/o CVA, expressive aphasia COMPARISON: None available. TECHNIQUE: Axial computed tomography images were obtained through the head/brain without intravenous contrast. Radiation dose: Total exam DLP = 887.87 mGy-cm. This CT exam was performed using one or more of the following dose reduction techniques: Automated exposure control, adjustment of the mA and/or kV according to patient size, and/or use of iterative reconstruction technique. FINDINGS: HEMORRHAGE: No intracranial hemorrhage. BRAIN: There is a 1.3 x 1.6 cm hyperdense lesion in the left posterior parietal lobe with surrounding vasogenic edema. No evidence of mass effect or midline shift. There is no extra-axial fluid collection. VENTRICLES: There is mild age-related parenchymal volume loss and proportionate enlargement of the ventricles and cortical sulci. CALVARIUM: Status post right parietal craniectomy. PARANASAL SINUSES: Mild scattered mucosal thickening in the ethmoid air cells. The remaining included paranasal sinuses are predominantly clear. MASTOID AIR CELLS: Predominantly clear. OTHER FINDINGS: None. IMPRESSION: 1.3 x 1.6 cm lesion in the left posterior parietal lobe with surrounding vasogenic edema is most compatible with mucinous/ cellular/hemorrhagic metastatic deposit with patient's history of lung cancer. No evidence of midline shift or herniation. An MRI of the brain without and with intravenous contrast is recommended for further evaluation. Important findings were discussed with Dr. Leonard in the ER on 02/24/2017 at 10:15 a.m.
--- NOTE | 2017-02-24 10:24 | CP.PCM.HP ---
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 While in TCU , the patient was observed to suddenly have some aphasia. He had episodes of confusion during his previous admissions however these were due to intake of Opiates for his pain, however this time , the patient did not receive any narcotic nor sedatives . The patient was noted to have some difficulty in comprehension and also in expressing himself. His speech was slurred however his motor and sensory function is at baseline. He has no fever, no headache, no visual change, denies CP nor SOB. Code Stroke was called and pt was immediately brought down for CT of the head and eventually transferred to ED for admission. CT of Head : 1.3 x 1.6 cm lesion in the left posterior parietal lobe with surrounding vasogenic edema is most compatible with mucinous/ cellular/ hemorrhagic metastatic deposit with patient's history of lung cancer. No evidence of midline shift or herniation. Present on Admission - Present on Admission Any Indicators Present on Admission: No Review of Systems - Review of Systems Systems not reviewed;Unavailable: Altered Mental Status All systems: reviewed and no additional remarkable complaints except - Constitutional Constitutional: Fatigue. absent: Fever - EENT Eyes: absent: Change in Vision Ears: Decreased Hearing Nose/Mouth/Throat: absent: Nasal Congestion, Nasal Discharge - Cardiovascular Cardiovascular: absent: Chest Pain, Chest Pain at Rest, Leg Edema - Respiratory Respiratory: absent: Cough, Dyspnea on Exertion - Gastrointestinal Gastrointestinal: absent: Abdominal Pain, Diarrhea, Nausea, Vomiting - Musculoskeletal Musculoskeletal: Arthralgias, Limited Range of Motion - Neurological Neurological: Abnormal Speech, Confusion, Memory Loss. absent: Convulsions, Dizziness, Focal Weakness, Headaches, Lack of Coordination, Loss of Vision, Sensory Deficit - Psychiatric Psychiatric: Confusion. absent: Suicidal Ideation - Hematologic/Lymphatic Hematologic: Easy Bruising. absent: Easy Bleeding Past Patient History - Infectious Disease Hx of Infectious Diseases: None - Tetanus Immunizations Tetanus Immunization: Unknown - Past Medical History & Family History Past Medical History?: Yes Past Family History: Reviewed and not pertinent - Past Social History Smoking Status: Former Smoker Chewing Tobacco Use: No Cigar Use: No Alcohol: None Drugs: Denies Home Situation {Lives}: With Family - CARDIAC Hx Hypertension: Yes - PULMONARY Hx Asthma: No Hx Chronic Obstructive Pulmonary Disease (COPD): Yes Hx Pneumonia: Yes - NEUROLOGICAL Hx Neurological Disorder: No - HEENT Hx Deafness: Yes Other/Comment: Significant hearing loss. 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 - MUSCULOSKELETAL/RHEUMATOLOGICAL Hx Arthritis: Yes - GASTROINTESTINAL Hx Gastritis: Yes - GENITOURINARY/GYNECOLOGICAL Hx Incontinence: Yes - PSYCHIATRIC Hx Anxiety: Yes - SURGICAL HISTORY Hx Arthroscopy: Yes (left knee) Hx Orthopedic Surgery: Yes (left knee replacement 11/03) Other/Comment: Excision of tumor on the scalp. Chest tube placement for pleural effusion followed by pleurodesis. right fourth toe amputation - ANESTHESIA Hx Anesthesia: Yes Hx Anesthesia Reactions: No Hx Malignant Hyperthermia: No Meds Allergies/Adverse Reactions: Allergies Allergy/AdvReac Type Severity Reaction Status Date / Time No Known Allergies Allergy Verified 01/30/17 15:30 Physical Exam - Constitutional Appears: No Acute Distress, Older Than Stated Age, Confused, Chronically Ill - Head Exam Head Exam: NORMAL INSPECTION, NORMOCEPHALIC - Eye Exam Eye Exam: EOMI, Normal appearance Pupil Exam: NORMAL ACCOMODATION - ENT Exam ENT Exam: Mucous Membranes Moist, Normal External Ear Exam - Neck Exam Neck exam: Positive for: Full Rom. Negative for: Meningismus - Respiratory Exam Respiratory Exam: Rhonchi, NORMAL BREATHING PATTERN. absent: Wheezes, Respiratory Distress - Cardiovascular Exam Cardiovascular Exam: REGULAR RHYTHM, +S1, +S2 - GI/Abdominal Exam GI & Abdominal Exam: Normal Bowel Sounds, Soft. absent: Tenderness - Extremities Exam Extremities exam: Positive for: normal capillary refill, pedal pulses present. Negative for: calf tenderness Additional comments: left knee limited ROM , some pain on full ROM, sl warmer compared to the right - Back Exam Back exam: absent: CVA tenderness (L), CVA tenderness (R) - Neurological Exam Neurological exam: Alert Additional comments: speech slurred some receptive and expressive aphasia able to follow some commands but not consistent moves all extremities - Psychiatric Exam Psychiatric exam: Normal Affect, Normal Mood - Skin Skin Exam: Dry, Pallor, Warm Results - Vital Signs Recent Vital Signs: Last Vital Signs Temp 97.6 F 02/24/17 10:05 Pulse 66 02/24/17 10:05 Resp 18 02/24/17 10:05 BP 129/72 02/24/17 10:05 Pulse Ox 99 02/24/17 10:05 - Labs Result Diagrams: 02/24/17 10:30 02/24/17 10:30 Assessment & Plan - Assessment and Plan (Free Text) Assessment: 76 years old male with 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 CT of head showed : 1.3 x 1.6 cm lesion in the left posterior parietal lobe with surrounding vasogenic edema is most compatible with mucinous/ cellular/ hemorrhagic metastatic deposit with patient's history of lung cancer. No evidence of midline shift or herniation. 1. Metastatic Brain Lesion Pt presented with aphasia , found to have Metastatic brain lesion on Ct of head Neurology consulted- discussed case with Dr Tomas hamilton to start Decadron for edema and Keppra for seizure proph Discussed with Oncology - Dr Logan -joy Radiotherapy Pt will be seen by Dr Taylor in [facility] in am PT,OT ,Speech therapy 2. [place] Cell Cancer with metastasis to lung Consult with Dr Logan Oncologist last chemo 02/10 plan for another chemo cycle on Friday 03/02 Radiotx for brain mets 3. Anemia and Thrombocytopenia sec to Chemotherapy Neutropenia resolved, received Granix was transfused [address] Logan Hemotologist on consult 4. History of Septic arthritis Left knee. cont Ancef IV q8 previous cultures from Left knee: MSSA Consult ID Dr Rivera Physical therapy 5. 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 DVT Prophylaxis SCD No anticoag due to low platelet 6. Code Status: DNR/DNI Surrogate decision maker : spouse Rebecca Decision To Admit - Pt Status Changed To: Hospital Disposition Of: Inpatient - Admit Certification Admit to Inpatient:: After my assessment, the patient will require hospitalization for at least two midnights. This is because of the severity of symptoms shown, intensity of services needed, and/or the medical risk in this patient being treated as an outpatient. - . Bed Request Type: Telemetry Admitting Physician: Xena Morales
[2017-02-24 10:37] LABS: BASO # 0.1 K/uL (0.0-0.2); BASO % 0.4 % (0.0-2.0); HEMATOCRIT 28.3 % (35.0-51.0); LYMPH # 2.1 K/uL (1.0-4.3); LYMPH % 9.6 % (20.0-40.0); MEAN CELL VOLUME 81.8 fl (80.0-94.0); MEAN CORPUSCULAR HEMOGLOBIN 27.1 pg (27.0-31.0); MEAN CORPUSCULAR HGB CONC 33.2 g/dL (33.0-37.0); MEAN PLATELET VOLUME 7.9 fl (7.2-11.7); MONO # 2.6 K/uL (0.0-0.8); MONO % 11.8 % (0.0-10.0); NEUT # 17.1 K/uL (1.8-7.0); NEUT % 78.2 % (50.0-75.0); NRBC % 0.3 % (0.0-0.0); RED CELL DISTRIBUTION WIDTH 20.2 % (11.5-14.5); WHITE BLOOD COUNT 21.9 K/uL (4.8-10.8)
[2017-02-24 10:45] LABS: PARTIAL THROMBOPLASTIN TIME 28.5 Seconds (25.6-37.1)
[2017-02-24 10:52] LABS: ALB/GLOB RATIO 1.1 (1.0-2.1); ALKALINE PHOSPHATASE 84 U/L (38-126); ALT/SGPT 25 U/L (21-72); AST/SGOT 27 U/L (17-59); BILIRUBIN,TOTAL 0.6 mg/dl (0.2-1.3); BLOOD UREA NITROGEN 11 mg/dl (9-20); CALCIUM 10.5 mg/dL (8.4-10.2); CARBON DIOXIDE 27 mmol/L (22-30); CHLORIDE 103 mmol/L (98-107); CHOLESTEROL 113 mg/dL (0-199); GFR AFRICAN-AMERICAN > 60; GLUCOSE,RANDOM 98 mg/dL (75-110); POTASSIUM 3.7 MMOL/L (3.6-5.0); SODIUM 141 mmol/l (132-148); TOTAL PROTEIN 5.8 G/DL (6.3-8.2)
[2017-02-24] MEDS: Sodium Chloride 0.9% 500 ML IV SCH ×2 (11:09→17:14)
[2017-02-24] MEDS: levETIRAcetam 500 MG in Sodium Chloride 0.9% 100 ML IVPB SCH ×2 (11:10→20:44)
--- NOTE | 2017-02-24 11:45 | RAD ---
HISTORY: CVA evaluation COMPARISON: 02/05/2017. January 24, 2017. CT angiogram FINDINGS: LUNGS: Persistent right upper lobe apical infiltrate/ mass. Approximately stable right lower lobe infiltrate/ mass. PLEURA: Stable and partially loculated left pleural effusion. CARDIOVASCULAR: No radiographic findings to suggest acute or significant cardiovascular disease. Venous access catheter in stable, satisfactory position. OSSEOUS STRUCTURES: No significant abnormalities. VISUALIZED UPPER ABDOMEN: Normal. OTHER FINDINGS: None. IMPRESSION: No significant interval change compared to the prior examination(s). Please note: No preliminary interpretation of this examination rendered by emergency department personnel.
[2017-02-24] MEDS: Dexamethasone 2 MG in Sodium Chloride 0.9% 50 ML IVPB SCH ×3 (11:46→20:41)
[2017-02-24] MEDS ORDERED: Menthol/Methyl Salicylate Oinment TOP PRN (12:18)
[2017-02-24] MEDS ORDERED: CEFAZOLIN SODIUM IV SCH (12:30)
[2017-02-24] MEDS ORDERED: [UNRECOGNIZED DRUG - OTHER] IV SCH (12:30)
[2017-02-24] MEDS ORDERED: NACL IV SCH (12:30)
--- NOTE | 2017-02-24 15:08 | CARD ---
APPROVED REPORT EKG Measurement Heart [id number] <Conclusion> Sinus rhythm with 1st degree AV block Left axis deviation Septal infarct, age undetermined Abnormal ECG
[2017-02-24] MEDS: ceFAZolin IV 2 gm in Dextrose 2 GM/50 ML BAG IVPB SCH (17:14)
[2017-02-24] MEDS: Lactobacillus Acidophilus 500 MU Cap PO SCH (17:21)
--- NOTE | 2017-02-24 18:15 | CON ---
NEUROLOGY CONSULTATION DATE: 02/24/2017 CHIEF COMPLAINT: Slurred speech. 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 While he was observed on TCU, had some sudden onset of aphasia and episode of confusion during his previous admission; however, these were due to intake of opiates at that time for his chronic pain. He did not receive any narcotics nor sedatives today and he had some difficulty comprehension and inability to express himself, which was abnormal from his baseline. However, he is able to move all extremities without any difficulty. No sensory symptoms. His CAT scan of the head showed a 1.3 x 1.6 lesion in the left posterior parietal lobe with surrounding vasogenic edema compatible with likely mucinous hemorrhagic metastatic deposit with no evidence of midline herniation shifts given with the patient's history of lung cancer, but it is consistent with his symptomatology. Currently, he is still mildly delirious and has cognitive impairment at his baseline and he is dysarthric. His platelet count is low. We started him on dexamethasone 2 mg IV q.8 for vasogenic edema and elevation of the bed at 30 degrees and Keppra 500 mg IV q.12 for seizure prophylaxis. PAST MEDICAL HISTORY: History of Ra[place] cell cancer with mets to he lung and malignant pleural effusion, pancytopenia due to chemotherapy, history of septic arthritis of the left knee, culture from arthrocentesis growing MSSA arthritis. SOCIAL HISTORY: No illicit drug use, smoking, or EtOH abuse at this time. REVIEW OF SYSTEMS: Fourteen-point review of systems is negative except in the HPI. History of COPD. ALLERGIES: NO KNOWN DRUG ALLERGIES. MEDICATIONS: Reviewed by nurse per reconciliation sheet. PHYSICAL EXAMINATION: VITAL SIGNS: Temperature 97.3, pulse rate is 78, blood pressure 140/70, respiratory rate 18, oxygen saturation 98% on room air. GENERAL: The patient is sitting on bed, in no acute distress. HEENT: Head is atraumatic and normocephalic. PERRLA. Extraocular muscles intact. NECK: Supple. No JVD. No adenopathy noted. LUNGS: Clear to auscultation. No adventitious sounds. HEART: S1 and S2. Normal rate and rhythm. No murmur, rubs, or gallops. ABDOMEN: Soft, nontender and nondistended. Bowel sounds are present. EXTREMITIES: No clubbing. No cyanosis. Peripheral pulses 2+ felt bilaterally. NEUROLOGIC: The patient is alert and oriented to person and place, not much to month or year. Attention and thought process are poor. Judgment is not fair . Speech: He has some receptive/expressive aphasia and dysarthria. Cranial nerves II through XII intact. Motor exam: No pronator drift was seen. Reduced right-sided finger tapping on motor examination when compared to the left, otherwise toes are upgoing. Sensory exam: Withdraws are localized to noxious stimulus. Light touch is intact. Proprioception is intact. DTRs are 1+ throughout. Coordination and gait deferred for now. LABORATORY DATA: Sodium is 141, potassium 3.7, chloride 103, carbon dioxide of 27, BUN of 11, creatinine 0.9, random glucose 98, A1c is 5.7. WBC is 21.9, hemoglobin 9.4, hematocrit 28.2, with a platelet count of 89. CT head showed 1.3 x 1.6 lesion in the left posterior parietal lobe with vasogenic edema compatible with hemorrhagic metastatic deposit and history of lung cancer. ASSESSMENT: This is a 76-year-old man with history of [place] cell cancer with metastasis to the lung, malignant pleural effusion, pancytopenia with status post chemotherapy, history of septic arthritis, was in Transitional Care Unit for physical exam when he was noted to have certainly confused and aphasia. CAT scan of the head showed 1.3 x 1.6 cm lesion in the left posterior parietal lobe with surrounding vasogenic edema compatible with mucinous/flesh/hemorrhagic metastatic deposit with a patient with history of lung cancer. No evidence of midline shift. RECOMMENDATIONS: At this time, recommend; 1. Start Decadron 2 mg IV q.8 for vasogenic edema. 2. Keppra for seizure prophylaxis 500 IV q.12. 3. Probably need Dr. Taylor, Radiation/Oncology at [facility] for an evaluation. 4. Speech therapy and physical and occupational therapy. 5. Platelet count is low and anemia, probably secondary to chemotherapy. Follow up with Hematology. 6. Get an MRI of the brain with contrast to assess if there is any hemorrhagic component. If there is no hemorrhage, they can start Pletal given that the platelets are low, which can be for his stroke prophylaxis. At this time, will benefit from following right now; PT/OT and Speech Therapy. Thank you for this consult. Chris Shine MD
[2017-02-25] MEDS: ceFAZolin IV 2 gm in Dextrose 2 GM/50 ML BAG IVPB SCH ×3 (00:28→17:07)
[2017-02-25] MEDS ORDERED: Dexamethasone 2 MG in Sodium Chloride 0.9% 50 ML IM ONE (04:00)
[2017-02-25 05:38] LABS: HEMATOCRIT 27.1 % (35.0-51.0); MEAN CELL VOLUME 81.4 fl (80.0-94.0); MEAN CORPUSCULAR HEMOGLOBIN 27.3 pg (27.0-31.0); MEAN CORPUSCULAR HGB CONC 33.5 g/dL (33.0-37.0); RED CELL DISTRIBUTION WIDTH 20.1 % (11.5-14.5)
[2017-02-25] MEDS: Dexamethasone 2 MG in Sodium Chloride 0.9% 50 ML IVPB SCH ×3 (05:38→21:56)
[2017-02-25 06:28] LABS: BLOOD UREA NITROGEN 11 mg/dl (9-20); CALCIUM 10.1 mg/dL (8.4-10.2); CARBON DIOXIDE 27 mmol/L (22-30); CHLORIDE 106 mmol/L (98-107); GFR AFRICAN-AMERICAN > 60; GLUCOSE,RANDOM 103 mg/dL (75-110); POTASSIUM 3.6 MMOL/L (3.6-5.0); SODIUM 141 mmol/l (132-148)
[2017-02-25] MEDS: Sodium Chloride 0.9% 500 ML IV SCH ×4 (06:45→21:56)
--- NOTE | 2017-02-25 08:15 | CP.PCM.PN ---
Subjective - Date & Time of Evaluation Date of Evaluation: 02/25/17 Time of Evaluation: 08:15 - Subjective Subjective: Pt is extremely confused today and keeps repeating 39,39, but needs the radiation therapy, so i clear him to go to [facility] for the radiation Objective - Vital Signs/Intake and Output Vital Signs (last 24 hours): Temp Pulse Resp BP Pulse Ox 97.7 F 70 20 143/74 96 02/25/17 08:09 02/25/17 08:09 02/25/17 08:09 02/25/17 08:09 02/25/17 08:09 - Medications Medications: Current Medications Acetaminophen (Tylenol 325mg Tab) 650 mg PO Q6 PRN PRN Reason: Fever >100.4 F Acetaminophen (Tylenol 325mg Tab) 650 mg PO Q4 PRN PRN Reason: Pain, Mild (1-3) Camphor/Menthol (Bengay) 1 applic TOP QID PRN PRN Reason: Muscle spasm Ferrous Sulfate (Feosol) 325 mg PO BID [facility] Last Admin: 02/24/17 17:15 Dose: 325 mg Sodium Chloride (Sodium Chloride 0.9%) 500 mls @ 100 mls/hr IV .Q5H [facility] Last Admin: 02/25/17 06:45 Dose: 100 mls/hr Levetiracetam 500 mg/ Sodium (Chloride) 105 mls @ 210 mls/hr IVPB Q12 [facility] Last Admin: 02/24/17 20:44 Dose: 210 mls/hr Cefazolin Sodium/Dextrose (Ancef Iv 2 Gm Duplex) 2 gm in 50 mls @ 50 mls/hr IVPB Q8 [facility] Last Admin: 02/25/17 00:28 Dose: 50 mls/hr Dexamethasone 2 mg/ Sodium (Chloride) 50.5 mls @ 101 mls/hr IVPB Q8@0400,1200, 2000 [facility] Last Admin: 02/25/17 05:38 Dose: 101 mls/hr Lactobacillus Acidophilus (Bacid Acidophilus) 1 cap PO BID [facility] Last Admin: 02/24/17 17:21 Dose: 1 cap Loperamide HCl (Imodium) 2 mg PO QID PRN PRN Reason: Diarrhea Metoprolol Tartrate (Lopressor) 25 mg PO Q12 [facility] Last Admin: 02/24/17 20:49 Dose: 25 mg Nystatin (Nystop Topical Powder) 1 applic TOP TID [facility] Last Admin: 02/24/17 17:15 Dose: 1 applic Pantoprazole Sodium (Protonix Ec Tab) 40 mg PO DAILY STEVEN - Labs Labs: 02/25/17 04:00 02/25/17 06:10 PT 15.9 Seconds (9.8-13.1) H 02/24/17 10:30 INR 1.4 (0.9-1.2) H 02/24/17 10:30 APTT 28.5 Seconds (25.6-37.1) 02/24/17 10:30
--- NOTE | 2017-02-25 08:24 | CP.PCM.PCO ---
Physician Communication Note - Physician Communication Note Physician Communication Note: Medically necessary for transport to [facility] for radiation therapy today.
--- NOTE | 2017-02-25 09:26 | CP.PCM.CON ---
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 He was immediately started on IV decadron and arrangements for RT to the brain were quickly made. 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 His respiratory status has been stable, and he has not had complaints of SOB, cough or chest discomfort. Past Patient History - Infectious Disease Hx of Infectious Diseases: None - Tetanus Immunizations Tetanus Immunization: Unknown - Past Medical History & Family History Past Medical History?: Yes - Past Social History Smoking Status: Never Smoked Chewing Tobacco Use: No Cigar Use: No Alcohol: Social - CARDIAC Hx Atrial Fibrillation: Yes Hx Hypertension: Yes - PULMONARY Hx Chronic Obstructive Pulmonary Disease (COPD): Yes Hx Lung Cancer: Yes (metastatic disease RUL and LLL) Hx Pneumonia: Yes Other/Comment: Malignant pleural effusion. - NEUROLOGICAL Hx Neurological Disorder: No - HEENT Hx Deafness: Yes Other/Comment: Significant hearing loss. - RENAL Hx Chronic Kidney Disease: No - ENDOCRINE/METABOLIC Hx Endocrine Disorders: No - HEMATOLOGICAL/ONCOLOGICAL Hx Anemia: Yes Hx Cancer: Yes Hx Chemotherapy: Yes Hx Human Immunodeficiency Virus (HIV): No - INTEGUMENTARY Hx Cellulitis: Yes (left knee) Other/Comment: Hale cell tumor of the scalp. - MUSCULOSKELETAL/RHEUMATOLOGICAL Hx Arthritis: Yes (septic arthritis) Hx Falls: No - GASTROINTESTINAL Hx Gastritis: Yes - GENITOURINARY/GYNECOLOGICAL Hx Genitourinary Disorders: No - PSYCHIATRIC Hx Anxiety: Yes Hx Substance Use: No - SURGICAL HISTORY Hx Arthroscopy: Yes (left knee) Hx Orthopedic Surgery: Yes (left knee replacement 11/03) Other/Comment: Excision of tumor on the scalp. Chest tube placement for pleural effusion followed by pleurodesis. right fourth toe amputation - ANESTHESIA Hx Anesthesia: Yes Hx Anesthesia Reactions: No Hx Malignant Hyperthermia: No Has any member of the family had a problem w/ anesthesia?: No Meds Home Medications: Home Medication List Medication Instructions Recorded Confirmed Type Dexamethasone [Decadron Inj] 4 mg IVP Q8H vial 03/05/17 Rx Magnesium Oxide [Mag-Ox] 400 mg PO BID tab 03/05/17 Rx Megestrol Acetate [Megace] 400 mg PO DAILY cup 03/05/17 Rx Phosphorus/Potassium/Sodium 1 pkt PO DAILY packet 03/05/17 Rx [Neutra-Phos] Zolpidem [Ambien] 5 mg PO HS PRN tab 03/05/17 Rx Allergies/Adverse Reactions: Allergies Allergy/AdvReac Type Severity Reaction Status Date / Time No Known Allergies Allergy Verified 01/30/17 15:30 - Medications Medications: Current Medications Acetaminophen (Tylenol 325mg Tab) 650 mg PO Q6 PRN PRN Reason: Fever >100.4 F Acetaminophen (Tylenol 325mg Tab) 650 mg PO Q4 PRN PRN Reason: Pain, Mild (1-3) Camphor/Menthol (Bengay) 1 applic TOP QID PRN PRN Reason: Muscle spasm Ferrous Sulfate (Feosol) 325 mg PO BID [facility] Last Admin: 02/24/17 17:15 Dose: 325 mg Sodium Chloride (Sodium Chloride 0.9%) 500 mls @ 100 mls/hr IV .Q5H [facility] Last Admin: 02/25/17 06:45 Dose: 100 mls/hr Levetiracetam 500 mg/ Sodium (Chloride) 105 mls @ 210 mls/hr IVPB Q12 [facility] Last Admin: 02/24/17 20:44 Dose: 210 mls/hr Cefazolin Sodium/Dextrose (Ancef Iv 2 Gm Duplex) 2 gm in 50 mls @ 50 mls/hr IVPB Q8 [facility] Last Admin: 02/25/17 00:28 Dose: 50 mls/hr Dexamethasone 2 mg/ Sodium (Chloride) 50.5 mls @ 101 mls/hr IVPB Q8@0400,1200, 2000 [facility] Last Admin: 02/25/17 05:38 Dose: 101 mls/hr Lactobacillus Acidophilus (Bacid Acidophilus) 1 cap PO BID [facility] Last Admin: 02/24/17 17:21 Dose: 1 cap Loperamide HCl (Imodium) 2 mg PO QID PRN PRN Reason: Diarrhea Metoprolol Tartrate (Lopressor) 25 mg PO Q12 [facility] Last Admin: 02/24/17 20:49 Dose: 25 mg Nystatin (Nystop Topical Powder) 1 applic TOP TID [facility] Last Admin: 02/24/17 17:15 Dose: 1 applic Pantoprazole Sodium (Protonix Ec Tab) 40 mg PO DAILY [facility] Physical Exam - Additional Findings Additional findings: Chronically ill appearing male who is in no acute distress. Patient is markedly hard of hearing. He appears to have expressive aphasia. The pharynx is pink and the mucous membranes are moist. Conjunctival pallor is noted. No icterus. Nares are patent bilaterally. No bleeding or exudate. Neck is supple and trachea is midline. No neck vein distention or carotid bruit. No palpable lymphadenopathy. Dullness to percussion is noted at the left lower lobe area posteriorly. Vocal tactile fremitus is also diminished in the same region. Breath sounds are diminished bilaterally and absent in the left base. No audible wheezing or bronchial breathing. Rare dry rales in the lower lobe on the right. Heart sounds are distant and rhythm is regular. Abdomen is soft and nontender with normal bowel sounds. The left knee has two small suture lines that are clean and dry. No swelling. + increased warmth. No dependent edema at the ankles. No cyanosis. No calf tenderness. Results - Vital Signs Recent Vital Signs: Last Vital Signs Temp 97.7 F 02/25/17 08:09 Pulse 70 02/25/17 08:09 Resp 20 02/25/17 08:09 BP 143/74 02/25/17 08:09 Pulse Ox 96 02/25/17 08:09 - Labs Result Diagrams: 03/05/17 06:55 03/05/17 06:55 Labs: Laboratory Results - last 24 hr 02/24/17 02/24/17 02/24/17 10:24 10:30 10:30 WBC 21.9 H RBC 3.46 L Hgb 9.4 L Hct 28.3 L MCV 81.8 MCH 27.1 MCHC 33.2 RDW 20.2 H Plt Count 89 L D MPV 7.9 Neut % (Auto) 78.2 H Lymph % (Auto) 9.6 L King % (Auto) 11.8 H Eos % (Auto) 0.0 Baso % (Auto) 0.4 Neut # 17.1 H Lymph # 2.1 King # 2.6 H Eos # 0.0 Baso # 0.1 PT INR APTT Sodium 141 Potassium 3.7 Chloride 103 Carbon Dioxide 27 Anion Gap 14 BUN 11 Creatinine 0.9 Est GFR ( Amer) > 60 Est GFR (Non-Af Amer) > 60 POC Glucose (mg/dL) 90 Random Glucose 98 Hemoglobin A1c Calcium 10.5 H Total Bilirubin 0.6 AST 27 ALT 25 Alkaline Phosphatase 84 Troponin I < 0.0120 Total Protein 5.8 L Albumin 3.0 L Globulin 2.8 Albumin/Globulin Ratio 1.1 Triglycerides 285 H Cholesterol 113 LDL Cholesterol Direct 40 HDL Cholesterol 14 L Blood Type Antibody Screen BBK History Checked 02/24/17 02/24/17 02/24/17 10:30 10:30 10:30 WBC RBC Hgb Hct MCV MCH MCHC RDW Plt Count MPV Neut % (Auto) Lymph % (Auto) King % (Auto) Eos % (Auto) Baso % (Auto) Neut # Lymph # King # Eos # Baso # PT 15.9 H INR 1.4 H APTT 28.5 Sodium Potassium Chloride Carbon Dioxide Anion Gap BUN Creatinine Est GFR ( Amer) Est GFR (Non-Af Amer) POC Glucose (mg/dL) Random Glucose Hemoglobin A1c 5.7 Calcium Total Bilirubin AST ALT Alkaline Phosphatase Troponin I Total Protein Albumin Globulin Albumin/Globulin Ratio Triglycerides Cholesterol LDL Cholesterol Direct HDL Cholesterol Blood Type O POSITIVE Antibody Screen Negative BBK History Checked Patient has bt 02/25/17 02/25/17 04:00 06:10 WBC 22.0 H RBC 3.33 L Hgb 9.1 L Hct 27.1 L MCV 81.4 MCH 27.3 MCHC 33.5 RDW 20.1 H Plt Count 71 L MPV Neut % (Auto) Lymph % (Auto) King % (Auto) Eos % (Auto) Baso % (Auto) Neut # Lymph # King # Eos # Baso # PT INR APTT Sodium 141 Potassium 3.6 Chloride 106 Carbon Dioxide 27 Anion Gap 11 BUN 11 Creatinine 0.9 Est GFR ( Amer) > 60 Est GFR (Non-Af Amer) > 60 POC Glucose (mg/dL) Random Glucose 103 Hemoglobin A1c Calcium 10.1 Total Bilirubin AST ALT Alkaline Phosphatase Troponin I Total Protein Albumin Globulin Albumin/Globulin Ratio Triglycerides Cholesterol LDL Cholesterol Direct HDL Cholesterol Blood Type Antibody Screen BBK History Checked Assessment & Plan (1) Metastatic cancer Status: Acute Priority: High - Date & Time Date: 02/25/17 Time: 09:26
--- NOTE | 2017-02-25 10:31 | CP.PCM.CON ---
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 His history dates back to 2008 when he had maricel cell of the right scalp status post excision and radiation in 2008 in [place]. He then received carboplatin and etoposide. He did well for a few years, however he developed a recurrence at the end of 2015 in the lung. He was treated with keytruda at [facility], however this was discontinue due to disease progression. Incidentally, he had a left knee replacement in October 2016. Unfortunately, shortly after he developed recurrence of a pleural effusion which resulted in shortness of breath. He was then started on cisplatin and etoposide with you in December 2016. He had two cycles so far. Unfortunately, he developed left knee pain with fever. He was diagnosed with an infection. He was treated with antibiotics and was getting physical therapy at [facility]. As per his daughter , he wasnt doing well with decreased appetite and diarrhea which resulted him getting transferred to [facility]. She stated that he was getting better , and on Thursday night, he was transferred to the TCU, however he acutely developed expressive aphasia with some confusion. A CT of the head without contrast on February 24, 2017 revealed a 1.3 x 1.6cm left posterior parietal lobe lesion with edema. He could not tolerate a MRI of the brain. He is referred to us for consideration of palliative radiation therapy. Review of Systems - Respiratory Respiratory: Dyspnea - Neurological Neurological: Confusion Past Patient History - Infectious Disease Hx of Infectious Diseases: None - Tetanus Immunizations Tetanus Immunization: Unknown - Past Medical History & Family History Past Medical History?: Yes - Past Social History Smoking Status: Former Smoker Alcohol: None Home Situation {Lives}: With Family - CARDIAC Hx Cardiac Disorders: Yes Hx Atrial Fibrillation: Yes Hx Hypertension: Yes - PULMONARY Hx Respiratory Disorders: Yes Hx Asthma: No Hx Chronic Obstructive Pulmonary Disease (COPD): Yes Hx Lung Cancer: Yes Hx Pneumonia: Yes - NEUROLOGICAL Hx Neurological Disorder: No Hx Alzheimer's Disease: No - HEENT Hx HEENT Problems: Yes Hx Deafness: Yes Other/Comment: Significant hearing loss. - RENAL Hx Chronic Kidney Disease: No - ENDOCRINE/METABOLIC Hx Endocrine Disorders: No - HEMATOLOGICAL/ONCOLOGICAL Hx Anemia: Yes Hx Cancer: Yes Hx Chemotherapy: Yes Hx Human Immunodeficiency Virus (HIV): No - INTEGUMENTARY Hx Cellulitis: Yes (left knee) Other/Comment: [place] cell tumor of the scalp. - MUSCULOSKELETAL/RHEUMATOLOGICAL Hx Arthritis: Yes (septic arthritis) Hx Falls: No - GASTROINTESTINAL Hx Gastrointestinal Disorders: Yes Hx Gastritis: Yes - GENITOURINARY/GYNECOLOGICAL Hx Genitourinary Disorders: No - PSYCHIATRIC Hx Anxiety: Yes Hx Substance Use: No - SURGICAL HISTORY Hx Arthroscopy: Yes (left knee) Hx Orthopedic Surgery: Yes (left knee replacement 11/03) Other/Comment: Excision of tumor on the scalp. Chest tube placement for pleural effusion followed by pleurodesis. right fourth toe amputation - ANESTHESIA Hx Anesthesia: Yes Hx Anesthesia Reactions: No Hx Malignant Hyperthermia: No Has any member of the family had a problem w/ anesthesia?: No Meds Allergies/Adverse Reactions: Allergies Allergy/AdvReac Type Severity Reaction Status Date / Time No Known Allergies Allergy Verified 01/30/17 15:30 - Medications Medications: Current Medications Acetaminophen (Tylenol 325mg Tab) 650 mg PO Q6 PRN PRN Reason: Fever >100.4 F Acetaminophen (Tylenol 325mg Tab) 650 mg PO Q4 PRN PRN Reason: Pain, Mild (1-3) Camphor/Menthol (Bengay) 1 applic TOP QID PRN PRN Reason: Muscle spasm Ferrous Sulfate (Feosol) 325 mg PO BID [facility] Last Admin: 02/24/17 17:15 Dose: 325 mg Sodium Chloride (Sodium Chloride 0.9%) 500 mls @ 100 mls/hr IV .Q5H [facility] Last Admin: 02/25/17 06:45 Dose: 100 mls/hr Levetiracetam 500 mg/ Sodium (Chloride) 105 mls @ 210 mls/hr IVPB Q12 [facility] Last Admin: 02/24/17 20:44 Dose: 210 mls/hr Cefazolin Sodium/Dextrose (Ancef Iv 2 Gm Duplex) 2 gm in 50 mls @ 50 mls/hr IVPB Q8 [facility] Last Admin: 02/25/17 00:28 Dose: 50 mls/hr Dexamethasone 2 mg/ Sodium (Chloride) 50.5 mls @ 101 mls/hr IVPB Q8@0400,1200, 2000 [facility] Last Admin: 02/25/17 05:38 Dose: 101 mls/hr Lactobacillus Acidophilus (Bacid Acidophilus) 1 cap PO BID [facility] Last Admin: 02/24/17 17:21 Dose: 1 cap Loperamide HCl (Imodium) 2 mg PO QID PRN PRN Reason: Diarrhea Metoprolol Tartrate (Lopressor) 25 mg PO Q12 [facility] Last Admin: 02/24/17 20:49 Dose: 25 mg Nystatin (Nystop Topical Powder) 1 applic TOP TID [facility] Last Admin: 02/24/17 17:15 Dose: 1 applic Pantoprazole Sodium (Protonix Ec Tab) 40 mg PO DAILY [facility] Physical Exam - Head Exam Head Exam: NORMAL INSPECTION - Eye Exam Eye Exam: EOMI - ENT Exam ENT Exam: Mucous Membranes Moist - Respiratory Exam Respiratory Exam: Decreased Breath Sounds - Cardiovascular Exam Cardiovascular Exam: REGULAR RHYTHM - GI/Abdominal Exam GI & Abdominal Exam: Normal Bowel Sounds - Neurological Exam Neurological exam: Alert, CN II-XII Intact Results - Vital Signs Recent Vital Signs: Last Vital Signs Temp 97.7 F 02/25/17 08:09 Pulse 70 02/25/17 08:09 Resp 20 02/25/17 08:09 BP 143/74 02/25/17 08:09 Pulse Ox 96 02/25/17 08:09 - Labs Result Diagrams: 02/25/17 04:00 02/25/17 06:10 Labs: Laboratory Results - last 24 hr 02/24/17 02/24/17 02/24/17 10:24 10:30 10:30 WBC 21.9 H RBC 3.46 L Hgb 9.4 L Hct 28.3 L MCV 81.8 MCH 27.1 MCHC 33.2 RDW 20.2 H Plt Count 89 L D MPV 7.9 Neut % (Auto) 78.2 H Lymph % (Auto) 9.6 L Ross % (Auto) 11.8 H Eos % (Auto) 0.0 Baso % (Auto) 0.4 Neut # 17.1 H Lymph # 2.1 Ross # 2.6 H Eos # 0.0 Baso # 0.1 PT INR APTT Sodium 141 Potassium 3.7 Chloride 103 Carbon Dioxide 27 Anion Gap 14 BUN 11 Creatinine 0.9 Est GFR ( Amer) > 60 Est GFR (Non-Af Amer) > 60 POC Glucose (mg/dL) 90 Random Glucose 98 Hemoglobin A1c Calcium 10.5 H Total Bilirubin 0.6 AST 27 ALT 25 Alkaline Phosphatase 84 Troponin I < 0.0120 Total Protein 5.8 L Albumin 3.0 L Globulin 2.8 Albumin/Globulin Ratio 1.1 Triglycerides 285 H Cholesterol 113 LDL Cholesterol Direct 40 HDL Cholesterol 14 L Blood Type Antibody Screen BBK History Checked 02/24/17 02/24/17 02/24/17 10:30 10:30 10:30 WBC RBC Hgb Hct MCV MCH MCHC RDW Plt Count MPV Neut % (Auto) Lymph % (Auto) Ross % (Auto) Eos % (Auto) Baso % (Auto) Neut # Lymph # Ross # Eos # Baso # PT 15.9 H INR 1.4 H APTT 28.5 Sodium Potassium Chloride Carbon Dioxide Anion Gap BUN Creatinine Est GFR ( Amer) Est GFR (Non-Af Amer) POC Glucose (mg/dL) Random Glucose Hemoglobin A1c 5.7 Calcium Total Bilirubin AST ALT Alkaline Phosphatase Troponin I Total Protein Albumin Globulin Albumin/Globulin Ratio Triglycerides Cholesterol LDL Cholesterol Direct HDL Cholesterol Blood Type O POSITIVE Antibody Screen Negative BBK History Checked Patient has bt 02/25/17 02/25/17 04:00 06:10 WBC 22.0 H RBC 3.33 L Hgb 9.1 L Hct 27.1 L MCV 81.4 MCH 27.3 MCHC 33.5 RDW 20.1 H Plt Count 71 L MPV Neut % (Auto) Lymph % (Auto) Ross % (Auto) Eos % (Auto) Baso % (Auto) Neut # Lymph # Ross # Eos # Baso # PT INR APTT Sodium 141 Potassium 3.6 Chloride 106 Carbon Dioxide 27 Anion Gap 11 BUN 11 Creatinine 0.9 Est GFR ( Amer) > 60 Est GFR (Non-Af Amer) > 60 POC Glucose (mg/dL) Random Glucose 103 Hemoglobin A1c Calcium 10.1 Total Bilirubin AST ALT Alkaline Phosphatase Troponin I Total Protein Albumin Globulin Albumin/Globulin Ratio Triglycerides Cholesterol LDL Cholesterol Direct HDL Cholesterol Blood Type Antibody Screen BBK History Checked Assessment & Plan - Assessment and Plan (Free Text) Assessment: Mr Leonardo is a 76 year old male with 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 Unfortunately he is confused and has expressive aphasia. He is not able to make decisions for himself. We spoke to his daughter about his radiation therapy. We also had consensus from the hospitalist as well as you and me that the radiation therapy would be the best recommendation given the metastases. Unfortunately, he could not tolerate a MRI. We have ordered a CT of the head with contrast to delineate the extent of his intracranial disease. We will begin as soon as possible
[2017-02-25] MEDS: levETIRAcetam 500 MG in Sodium Chloride 0.9% 100 ML IVPB SCH ×2 (12:00→23:17)
[2017-02-25] MEDS: Lactobacillus Acidophilus 500 MU Cap PO SCH ×2 (12:05→16:51)
[2017-02-25] MEDS: Pantoprazole 40 mg EC Tab PO SCH (12:05)
--- NOTE | 2017-02-25 13:07 | CP.PCM.CON ---
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 While in TCU , the patient was observed to suddenly have some aphasia. He had episodes of confusion during his previous admissions however these were due to intake of Opiates for his pain, however this time , the patient did not receive any narcotic nor sedatives . The patient was noted to have some difficulty in comprehension and also in expressing himself. His speech was slurred however his motor and sensory function is at baseline. He has no fever, no headache, no visual change, denies CP nor SOB. Code Stroke was called and pt was immediately brought down for CT of the head and eventually transferred to ED for admission . CT of Head : 1.3 x 1.6 cm lesion in the left posterior parietal lobe with surrounding vasogenic edema is most compatible with mucinous/ cellular/ hemorrhagic metastatic deposit with patient's history of lung cancer. No evidence of midline shift or herniation. TODAY WENT FOR rt TO HEAD iv ANTIBIOTICS TO CONTINUE Review of Systems - Constitutional Constitutional: As Per HPI - EENT Eyes: absent: As Per HPI, Blind Spots, Blurred Vision, Change in Vision, Decreased Night Vision, Diplopia, Discharge, Dry Eye, Exophthalmos, Floaters, Irritation, Itchy Eyes, Loss of Peripheral Vision, Pain, Photophobia, Requires Corrective Lenses, Sees Flashes, Spots in Vision, Tunnel Vision, Other Visual Disturbances, Loss of Vision, Other Ears: Decreased Hearing. absent: As Per HPI, Ear Discharge, Ear Pain, Tinnitus , Abnormal Hearing, Disequilibrium, Dizziness, Other Nose/Mouth/Throat: absent: As Per HPI, Epistaxis, Nasal Congestion, Nasal Discharge, Nasal Obstruction, Nasal Trauma, Nose Pain, Post Nasal Drip, Sinus Pain, Sinus Pressure, Bleeding Gums, Change in Voice, Dental Pain, Dry Mouth, Dysphagia, Halitosis, Hoarsness, Lip Swelling, Mouth Lesions, Mouth Pain, Odynophagia, Sore Throat, Throat Swelling, Tongue Swelling, Facial Pain, Neck Pain, Neck Mass, Other - Cardiovascular Cardiovascular: As Per HPI - Respiratory Respiratory: As Per HPI, Cough, Dyspnea. absent: Hemoptysis - Gastrointestinal Gastrointestinal: absent: As Per HPI, Abdominal Pain, Belching, Bloating, Change in Bowel Habits, Change in Stool Character, Coffee Ground Emesis, Constipation, Cramping, Diarrhea, Dyspepsia, Dysphagia, Early Satiety, Excessive Flatus, Fecal Incontinence, Heartburn, Hematemesis, Hematochezia, Loose Stools, Melena, Nausea, Odynophagia, Temesmus, Vomiting, Other - Genitourinary Genitourinary: absent: As Per HPI, Change in Urinary Stream, Difficulty Urinating, Dysuria, Flank Pain, Hematuria, Pyuria, Nocturia, Urinary Incontinence, Urinary Frequency, Urinary Hesitance, Urinary Urgency, Voiding Freq/Small Amts, Freq UTI, Hx Renal/Bladder Calculi, Hx /Renal Surgery, Bladder Distension, Other - Integumentary Integumentary: As Per HPI - Neurological Neurological: As Per HPI - Psychiatric Psychiatric: absent: As Per HPI, Abnormal Sleep Pattern, Anhedonia, Anxiety, Auditory Hallucinations, Behavioral Changes, Change in Appetite, Change in Libido, Confusion, Depression, Difficulty Concentrating, Hallucinations, Homicidal Ideation, Hopelessness, Irritability, Memory Loss, Mood Swings, Panic Attacks, Paranoia, Suicidal Ideation, Visual Hallucinations, Tactile Hallucinations, Other - Endocrine Endocrine: absent: As Per HPI, Change in Body Appearance, Change in Libido, Cold Intolorance, Deepening of Voice, Excessive Sweating, Fatigue, Flushing, Heat Intolorance, Increase in Ring/Shoe/Hat Size, Palpitations, Polydipsia, Polyphagia, Polyuria, Other - Hematologic/Lymphatic Hematologic: absent: As Per HPI, Easy Bleeding, Easy Bruising, Lymphadenopathy, Other Past Patient History - Infectious Disease Hx of Infectious Diseases: None - Tetanus Immunizations Tetanus Immunization: Unknown - Past Medical History & Family History Past Medical History?: Yes - Past Social History Smoking Status: Former Smoker Alcohol: None Home Situation {Lives}: With Family - CARDIAC Hx Cardiac Disorders: Yes Hx Atrial Fibrillation: Yes Hx Hypertension: Yes - PULMONARY Hx Respiratory Disorders: Yes Hx Asthma: No Hx Chronic Obstructive Pulmonary Disease (COPD): Yes Hx Lung Cancer: Yes Hx Pneumonia: Yes - NEUROLOGICAL Hx Neurological Disorder: No Hx Alzheimer's Disease: No - HEENT Hx HEENT Problems: Yes Hx Deafness: Yes Other/Comment: Significant hearing loss. - RENAL Hx Chronic Kidney Disease: No - ENDOCRINE/METABOLIC Hx Endocrine Disorders: No - HEMATOLOGICAL/ONCOLOGICAL Hx Anemia: Yes Hx Cancer: Yes Hx Chemotherapy: Yes Hx Human Immunodeficiency Virus (HIV): No - INTEGUMENTARY Hx Cellulitis: Yes (left knee) Other/Comment: [place] cell tumor of the scalp. - MUSCULOSKELETAL/RHEUMATOLOGICAL Hx Arthritis: Yes (septic arthritis) Hx Falls: No - GASTROINTESTINAL Hx Gastrointestinal Disorders: Yes Hx Gastritis: Yes - GENITOURINARY/GYNECOLOGICAL Hx Genitourinary Disorders: No - PSYCHIATRIC Hx Anxiety: Yes Hx Substance Use: No - SURGICAL HISTORY Hx Arthroscopy: Yes (left knee) Hx Orthopedic Surgery: Yes (left knee replacement 11/03) Other/Comment: Excision of tumor on the scalp. Chest tube placement for pleural effusion followed by pleurodesis. right fourth toe amputation - ANESTHESIA Hx Anesthesia: Yes Hx Anesthesia Reactions: No Hx Malignant Hyperthermia: No Has any member of the family had a problem w/ anesthesia?: No Meds Allergies/Adverse Reactions: Allergies Allergy/AdvReac Type Severity Reaction Status Date / Time No Known Allergies Allergy Verified 01/30/17 15:30 - Medications Medications: Current Medications Acetaminophen (Tylenol 325mg Tab) 650 mg PO Q6 PRN PRN Reason: Fever >100.4 F Acetaminophen (Tylenol 325mg Tab) 650 mg PO Q4 PRN PRN Reason: Pain, Mild (1-3) Last Admin: 02/25/17 12:39 Dose: 650 mg Camphor/Menthol (Bengay) 1 applic TOP QID PRN PRN Reason: Muscle spasm Ferrous Sulfate (Feosol) 325 mg PO BID [facility] Last Admin: 02/25/17 12:06 Dose: 325 mg Sodium Chloride (Sodium Chloride 0.9%) 500 mls @ 100 mls/hr IV .Q5H [facility] Last Admin: 02/25/17 12:11 Dose: 100 mls/hr Levetiracetam 500 mg/ Sodium (Chloride) 105 mls @ 210 mls/hr IVPB Q12 [facility] Last Admin: 02/25/17 12:00 Dose: 210 mls/hr Cefazolin Sodium/Dextrose (Ancef Iv 2 Gm Duplex) 2 gm in 50 mls @ 50 mls/hr IVPB Q8 [facility] Last Admin: 02/25/17 00:28 Dose: 50 mls/hr Dexamethasone 2 mg/ Sodium (Chloride) 50.5 mls @ 101 mls/hr IVPB Q8@0400,1200, 2000 [facility] Last Admin: 02/25/17 12:56 Dose: 101 mls/hr Lactobacillus Acidophilus (Bacid Acidophilus) 1 cap PO BID [facility] Last Admin: 02/25/17 12:05 Dose: 1 cap Loperamide HCl (Imodium) 2 mg PO QID PRN PRN Reason: Diarrhea Metoprolol Tartrate (Lopressor) 25 mg PO Q12 [facility] Last Admin: 02/25/17 12:05 Dose: 25 mg Nystatin (Nystop Topical Powder) 1 applic TOP TID [facility] Last Admin: 02/25/17 12:06 Dose: 1 applic Pantoprazole Sodium (Protonix Ec Tab) 40 mg PO DAILY [facility] Last Admin: 02/25/17 12:05 Dose: 40 mg Physical Exam - Constitutional Appears: Non-toxic, Chronically Ill - Head Exam Head Exam: NORMOCEPHALIC - Eye Exam Eye Exam: PERRL - ENT Exam ENT Exam: Mucous Membranes Dry - Neck Exam Neck exam: Negative for: Lymphadenopathy - Respiratory Exam Respiratory Exam: Decreased Breath Sounds - Cardiovascular Exam Cardiovascular Exam: REGULAR RHYTHM - GI/Abdominal Exam GI & Abdominal Exam: Diminished Bowel Sounds - Rectal Exam Rectal Exam: Deferred - Exam Exam: NORMAL INSPECTION - Extremities Exam Extremities exam: Positive for: pedal pulses present. Negative for: calf tenderness, pedal edema, tenderness - Back Exam Back exam: absent: CVA tenderness (L), CVA tenderness (R) - Neurological Exam Neurological exam: Alert, CN II-XII Intact, Motor Sensory Deficit - Psychiatric Exam Psychiatric exam: Anxious, Depressed - Skin Skin Exam: Dry Results - Vital Signs Recent Vital Signs: Last Vital Signs Temp 97.3 F L 02/25/17 12:23 Pulse 85 02/25/17 12:23 Resp 18 02/25/17 12:23 BP 147/79 02/25/17 12:23 Pulse Ox 98 02/25/17 12:23 - Labs Result Diagrams: 02/25/17 04:00 02/25/17 06:10 Labs: Laboratory Results - last 24 hr 02/24/17 02/24/17 02/25/17 10:24 10:30 04:00 WBC 22.0 H RBC 3.33 L Hgb 9.1 L Hct 27.1 L MCV 81.4 MCH 27.3 MCHC 33.5 RDW 20.1 H Plt Count 71 L Sodium Potassium Chloride Carbon Dioxide Anion Gap BUN Creatinine Est GFR ( Amer) Est GFR (Non-Af Amer) POC Glucose (mg/dL) 90 Random Glucose Hemoglobin A1c 5.7 Calcium 02/25/17 06:10 WBC RBC Hgb Hct MCV MCH MCHC RDW Plt Count Sodium 141 Potassium 3.6 Chloride 106 Carbon Dioxide 27 Anion Gap 11 BUN 11 Creatinine 0.9 Est GFR ( Amer) > 60 Est GFR (Non-Af Amer) > 60 POC Glucose (mg/dL) Random Glucose 103 Hemoglobin A1c Calcium 10.1 Assessment & Plan (1) CVA (cerebral vascular accident) Status: Acute (2) Metastatic cancer Status: Acute (3) Cellulitis Status: Acute (4) Chemotherapy-induced diarrhea Status: Acute (5) Knee effusion, left Status: Acute
--- NOTE | 2017-02-25 15:16 | CP.PCM.PCO ---
Physician Communication Note - Physician Communication Note Physician Communication Note: Ok for patient to go off floor to CT scan without telemetry.
[2017-02-25] MEDS ORDERED: Iohexol 300 100 ML IJ ONE (15:27)
[2017-02-25] MEDS ORDERED: Sodium Chloride 0.9% 50 ML IV ONE (15:27)
--- NOTE | 2017-02-25 15:34 | CP.PCM.PN ---
Subjective - Date & Time of Evaluation Date of Evaluation: 02/25/17 Time of Evaluation: 13:00 - Subjective Subjective: Patient seen and examined at bedside. He is more confused today that I have previously seen him, although he has no slurring of speech this morning. He does continue to have difficulty in comprehension. No other focal neurological deficits. Denies cp, sob, n/v/d, lethargy, weakness. Patient was sent to [place] this morning for radiation therapy which was performed by Dr. Taylor. He was transported back to [facility] in stable condition. Objective - Vital Signs/Intake and Output Vital Signs (last 24 hours): Temp Pulse Resp BP Pulse Ox 97.3 F L 85 18 147/79 98 02/25/17 12:23 02/25/17 12:23 02/25/17 12:23 02/25/17 12:23 02/25/17 12:23 - Medications Medications: Current Medications Acetaminophen (Tylenol 325mg Tab) 650 mg PO Q6 PRN PRN Reason: Fever >100.4 F Acetaminophen (Tylenol 325mg Tab) 650 mg PO Q4 PRN PRN Reason: Pain, Mild (1-3) Last Admin: 02/25/17 12:39 Dose: 650 mg Camphor/Menthol (Bengay) 1 applic TOP QID PRN PRN Reason: Muscle spasm Ferrous Sulfate (Feosol) 325 mg PO BID [facility] Last Admin: 02/25/17 12:06 Dose: 325 mg Sodium Chloride (Sodium Chloride 0.9%) 500 mls @ 100 mls/hr IV .Q5H [facility] Last Admin: 02/25/17 12:11 Dose: 100 mls/hr Levetiracetam 500 mg/ Sodium (Chloride) 105 mls @ 210 mls/hr IVPB Q12 [facility] Last Admin: 02/25/17 12:00 Dose: 210 mls/hr Cefazolin Sodium/Dextrose (Ancef Iv 2 Gm Duplex) 2 gm in 50 mls @ 50 mls/hr IVPB Q8 [facility] Last Admin: 02/25/17 00:28 Dose: 50 mls/hr Dexamethasone 2 mg/ Sodium (Chloride) 50.5 mls @ 101 mls/hr IVPB Q8@0400,1200, 2000 [facility] Last Admin: 02/25/17 12:56 Dose: 101 mls/hr Lactobacillus Acidophilus (Bacid Acidophilus) 1 cap PO BID [facility] Last Admin: 02/25/17 12:05 Dose: 1 cap Loperamide HCl (Imodium) 2 mg PO QID PRN PRN Reason: Diarrhea Metoprolol Tartrate (Lopressor) 25 mg PO Q12 [facility] Last Admin: 02/25/17 12:05 Dose: 25 mg Nystatin (Nystop Topical Powder) 1 applic TOP TID [facility] Last Admin: 02/25/17 12:06 Dose: 1 applic Pantoprazole Sodium (Protonix Ec Tab) 40 mg PO DAILY [facility] Last Admin: 02/25/17 12:05 Dose: 40 mg - Labs Labs: 02/25/17 04:00 02/25/17 06:10 PT 15.9 Seconds (9.8-13.1) H 02/24/17 10:30 INR 1.4 (0.9-1.2) H 02/24/17 10:30 APTT 28.5 Seconds (25.6-37.1) 02/24/17 10:30 - Additional Findings Additional findings: Physical exam: Constitutional- cooperative, awake, alert, confused Head- NCAT, PERRL Eye- PERRL, normal accommodation ENT- normal exam, MMM. 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 CT of head showed : 1.3 x 1.6 cm lesion in the left posterior parietal lobe with surrounding vasogenic edema is most compatible with mucinous/ cellular/ hemorrhagic metastatic deposit with patient's history of lung cancer. No evidence of midline shift or herniation. 1. Metastatic Brain Lesion Pt presented with aphasia , found to have Metastatic brain lesion on Ct of head Neurology consulted- discussed case with Dr Tomas hamilton to start Decadron for edema and Keppra for seizure proph Discussed with Oncology - Dr Logan -joy Radiotherapy Radiation therapy performed by Dr Taylor in [facility] Oncology PT,OT ,Speech therapy 2. [place] Cell Cancer with metastasis to lung Consult with Dr Logan Oncologist last chemo 02/10 plan for another chemo cycle on Friday 03/02 Radiotx for brain mets 3. Anemia and Thrombocytopenia sec to Chemotherapy Neutropenia resolved, received Granix was transfused 2 units PRBC on 02/24 Dr Logan Hemotologist on consult 4. History of Septic arthritis Left knee. cont Ancef IV q8 previous cultures from Left knee: MSSA Consult ID Dr Rivera Physical therapy 5. Scrotal irritation dermatitis associated with fecal and urine soiling Apply Nystatin powder to scrotum [place] [employer] 6. DVT Prophylaxis SCD No anticoag due to low platelet 6. Code Status: DNR/DNI Surrogate decision maker : spouse Rebecca
--- NOTE | 2017-02-25 16:19 | CT ---
PROCEDURE: CT HEAD WITH CONTRAST HISTORY: metastatic maricel with brain mets(couldn't get MRI COMPARISON: 02/24/2017. TECHNIQUE: Axial computed tomography images were obtained through the head/brain with intravenous contrast. Contrast dose: 80 mL Omnipaque 300 Radiation dose: Total exam DLP = 887.87 mGy-cm. This CT exam was performed using one or more of the following dose reduction techniques: Automated exposure control, adjustment of the mA and/or kV according to patient size, and/or use of iterative reconstruction technique. FINDINGS: HEMORRHAGE: No intracranial hemorrhage. BRAIN: There is a 1.8 x 1.5 cm homogeneously enhancing lesion in the left posterior parietal lobe with surrounding vasogenic edema. No evidence of mass effect or midline shift. No extra-axial fluid collection. VENTRICLES: There is mild age-related global parenchymal volume loss and proportionate enlargement of the ventricles and cortical sulci. CALVARIUM: A round lytic lesion in the right posterior occipital calvarium is most compatible with postsurgical changes. PARANASAL SINUSES: Predominantly clear. MASTOID AIR CELLS: Predominantly clear. OTHER FINDINGS: None. IMPRESSION: 1.8 x 1.5 cm enhancing lesion in the left posterior parietal lobe with mild surrounding vasogenic edema without midline shift or herniation. Given intrinsic hyperdensity of the lesion on noncontrast CT, differential considerations include hemorrhagic/ mucinous metastatic deposit from patient's known lung cancer, lymphoma and melanoma metastasis.
[2017-02-26] MEDS: ceFAZolin IV 2 gm in Dextrose 2 GM/50 ML BAG IVPB SCH ×3 (01:21→18:37)
[2017-02-26] MEDS: Sodium Chloride 0.9% 500 ML IV SCH ×5 (01:22→22:15)
[2017-02-26] MEDS: Dexamethasone 2 MG in Sodium Chloride 0.9% 50 ML IVPB SCH ×3 (04:25→20:44)
[2017-02-26 05:54] LABS: HEMATOCRIT 26.7 % (35.0-51.0); MEAN CELL VOLUME 81.9 fl (80.0-94.0); RED CELL DISTRIBUTION WIDTH 20.3 % (11.5-14.5); WHITE BLOOD COUNT 19.9 K/uL (4.8-10.8)
[2017-02-26 05:56] LABS: BLOOD UREA NITROGEN 11 mg/dl (9-20); CARBON DIOXIDE 26 mmol/L (22-30); CHLORIDE 108 mmol/L (98-107); GFR AFRICAN-AMERICAN > 60; GLUCOSE,RANDOM 109 mg/dL (75-110); POTASSIUM 3.2 MMOL/L (3.6-5.0); SODIUM 142 mmol/l (132-148)
[2017-02-26] MEDS: Lactobacillus Acidophilus 500 MU Cap PO SCH ×2 (08:31→18:37)
[2017-02-26] MEDS: Potassium Chloride 20 mEq ER Tab PO SCH ×2 (08:32→18:37)
[2017-02-26] MEDS: Pantoprazole 40 mg EC Tab PO SCH (08:32)
[2017-02-26] MEDS: levETIRAcetam 500 MG in Sodium Chloride 0.9% 100 ML IVPB SCH ×2 (08:33→20:48)
--- NOTE | 2017-02-26 08:53 | CP.PCM.PN ---
Subjective - Date & Time of Evaluation Date of Evaluation: 02/26/17 Time of Evaluation: 08:48 - Subjective Subjective: Pt is still very confused but better than yesterday. He claims he cannot see from both eyes. He can watch television, but cannot read. He is on steroids and is to start the RT today. Prognosis is poor. Objective - Vital Signs/Intake and Output Vital Signs (last 24 hours): Temp Pulse Resp BP Pulse Ox 97.5 F L 83 20 137/75 96 02/26/17 08:21 02/26/17 08:32 02/26/17 08:21 02/26/17 08:32 02/26/17 08:21 - Medications Medications: Current Medications Acetaminophen (Tylenol 325mg Tab) 650 mg PO Q6 PRN PRN Reason: Fever >100.4 F Acetaminophen (Tylenol 325mg Tab) 650 mg PO Q4 PRN PRN Reason: Pain, Mild (1-3) Last Admin: 02/25/17 12:39 Dose: 650 mg Camphor/Menthol (Bengay) 1 applic TOP QID PRN PRN Reason: Muscle spasm Ferrous Sulfate (Feosol) 325 mg PO BID [facility] Last Admin: 02/26/17 08:32 Dose: 325 mg Sodium Chloride (Sodium Chloride 0.9%) 500 mls @ 100 mls/hr IV .Q5H [facility] Last Admin: 02/26/17 08:33 Dose: 100 mls/hr Levetiracetam 500 mg/ Sodium (Chloride) 105 mls @ 210 mls/hr IVPB Q12 [facility] Last Admin: 02/26/17 08:33 Dose: 210 mls/hr Cefazolin Sodium/Dextrose (Ancef Iv 2 Gm Duplex) 2 gm in 50 mls @ 50 mls/hr IVPB Q8 [facility] Last Admin: 02/26/17 01:21 Dose: 50 mls/hr Dexamethasone 2 mg/ Sodium (Chloride) 50.5 mls @ 101 mls/hr IVPB Q8@0400,1200, 2000 [facility] Last Admin: 02/26/17 04:25 Dose: 101 mls/hr Lactobacillus Acidophilus (Bacid Acidophilus) 1 cap PO BID [facility] Last Admin: 02/26/17 08:31 Dose: 1 cap Loperamide HCl (Imodium) 2 mg PO QID PRN PRN Reason: Diarrhea Metoprolol Tartrate (Lopressor) 25 mg PO Q12 [facility] Last Admin: 02/26/17 08:32 Dose: 25 mg Nystatin (Nystop Topical Powder) 1 applic TOP TID [facility] Last Admin: 02/26/17 08:32 Dose: 1 applic Pantoprazole Sodium (Protonix Ec Tab) 40 mg PO DAILY [facility] Last Admin: 02/26/17 08:32 Dose: 40 mg Potassium Chloride (K-Dur 20 Meq Er Tab) 20 meq PO BID [facility] Last Admin: 02/26/17 08:32 Dose: 20 meq - Labs Labs: 02/26/17 04:20 02/26/17 04:20 PT 15.9 Seconds (9.8-13.1) H 02/24/17 10:30 INR 1.4 (0.9-1.2) H 02/24/17 10:30 APTT 28.5 Seconds (25.6-37.1) 02/24/17 10:30
--- NOTE | 2017-02-26 13:13 | CP.PCM.PN ---
Subjective - Date & Time of Evaluation Date of Evaluation: 02/26/17 Time of Evaluation: 10:30 - Subjective Subjective: The patient is presently out of the building for radiation therapy. Objective - Vital Signs/Intake and Output Vital Signs (last 24 hours): Temp Pulse Resp BP Pulse Ox 97.5 F L 83 20 137/75 96 02/26/17 08:21 02/26/17 08:32 02/26/17 08:21 02/26/17 08:32 02/26/17 08:21 - Medications Medications: Current Medications Acetaminophen (Tylenol 325mg Tab) 650 mg PO Q6 PRN PRN Reason: Fever >100.4 F Acetaminophen (Tylenol 325mg Tab) 650 mg PO Q4 PRN PRN Reason: Pain, Mild (1-3) Last Admin: 02/25/17 12:39 Dose: 650 mg Camphor/Menthol (Bengay) 1 applic TOP QID PRN PRN Reason: Muscle spasm Ferrous Sulfate (Feosol) 325 mg PO BID [facility] Last Admin: 02/26/17 08:32 Dose: 325 mg Sodium Chloride (Sodium Chloride 0.9%) 500 mls @ 100 mls/hr IV .Q5H [facility] Last Admin: 02/26/17 12:51 Dose: 100 mls/hr Levetiracetam 500 mg/ Sodium (Chloride) 105 mls @ 210 mls/hr IVPB Q12 [facility] Last Admin: 02/26/17 08:33 Dose: 210 mls/hr Cefazolin Sodium/Dextrose (Ancef Iv 2 Gm Duplex) 2 gm in 50 mls @ 50 mls/hr IVPB Q8 [facility] Last Admin: 02/26/17 09:08 Dose: 50 mls/hr Dexamethasone 2 mg/ Sodium (Chloride) 50.5 mls @ 101 mls/hr IVPB Q8@0400,1200, 2000 [facility] Last Admin: 02/26/17 12:47 Dose: 101 mls/hr Lactobacillus Acidophilus (Bacid Acidophilus) 1 cap PO BID [facility] Last Admin: 02/26/17 08:31 Dose: 1 cap Loperamide HCl (Imodium) 2 mg PO QID PRN PRN Reason: Diarrhea Metoprolol Tartrate (Lopressor) 25 mg PO Q12 [facility] Last Admin: 02/26/17 08:32 Dose: 25 mg Nystatin (Nystop Topical Powder) 1 applic TOP TID [facility] Last Admin: 02/26/17 08:32 Dose: 1 applic Pantoprazole Sodium (Protonix Ec Tab) 40 mg PO DAILY [facility] Last Admin: 02/26/17 08:32 Dose: 40 mg Potassium Chloride (K-Dur 20 Meq Er Tab) 20 meq PO BID [facility] Last Admin: 02/26/17 08:32 Dose: 20 meq - Labs Labs: 02/26/17 04:20 02/26/17 04:20 PT 15.9 Seconds (9.8-13.1) H 02/24/17 10:30 INR 1.4 (0.9-1.2) H 02/24/17 10:30 APTT 28.5 Seconds (25.6-37.1) 02/24/17 10:30
--- NOTE | 2017-02-26 13:36 | CP.PCM.PN ---
Subjective - Date & Time of Evaluation Date of Evaluation: 02/26/17 Time of Evaluation: 09:00 - Subjective Subjective: Patient seen and examined at bedside. He is noted to be somewhat more coherent today but still remains confused. No complaints overnight. No events as per nursing staff. Patient going for radiation therapy today. Objective - Vital Signs/Intake and Output Vital Signs (last 24 hours): Temp Pulse Resp BP Pulse Ox 97.5 F L 83 20 137/75 96 02/26/17 08:21 02/26/17 08:32 02/26/17 08:21 02/26/17 08:32 02/26/17 08:21 - Medications Medications: Current Medications Acetaminophen (Tylenol 325mg Tab) 650 mg PO Q6 PRN PRN Reason: Fever >100.4 F Acetaminophen (Tylenol 325mg Tab) 650 mg PO Q4 PRN PRN Reason: Pain, Mild (1-3) Last Admin: 02/25/17 12:39 Dose: 650 mg Camphor/Menthol (Bengay) 1 applic TOP QID PRN PRN Reason: Muscle spasm Ferrous Sulfate (Feosol) 325 mg PO BID [facility] Last Admin: 02/26/17 08:32 Dose: 325 mg Sodium Chloride (Sodium Chloride 0.9%) 500 mls @ 100 mls/hr IV .Q5H [facility] Last Admin: 02/26/17 12:51 Dose: 100 mls/hr Levetiracetam 500 mg/ Sodium (Chloride) 105 mls @ 210 mls/hr IVPB Q12 [facility] Last Admin: 02/26/17 08:33 Dose: 210 mls/hr Cefazolin Sodium/Dextrose (Ancef Iv 2 Gm Duplex) 2 gm in 50 mls @ 50 mls/hr IVPB Q8 [facility] Last Admin: 02/26/17 09:08 Dose: 50 mls/hr Dexamethasone 2 mg/ Sodium (Chloride) 50.5 mls @ 101 mls/hr IVPB Q8@0400,1200, 2000 [facility] Last Admin: 02/26/17 12:47 Dose: 101 mls/hr Lactobacillus Acidophilus (Bacid Acidophilus) 1 cap PO BID [facility] Last Admin: 02/26/17 08:31 Dose: 1 cap Loperamide HCl (Imodium) 2 mg PO QID PRN PRN Reason: Diarrhea Metoprolol Tartrate (Lopressor) 25 mg PO Q12 [facility] Last Admin: 02/26/17 08:32 Dose: 25 mg Nystatin (Nystop Topical Powder) 1 applic TOP TID [facility] Last Admin: 02/26/17 08:32 Dose: 1 applic Pantoprazole Sodium (Protonix Ec Tab) 40 mg PO DAILY [facility] Last Admin: 02/26/17 08:32 Dose: 40 mg Potassium Chloride (K-Dur 20 Meq Er Tab) 20 meq PO BID [facility] Last Admin: 02/26/17 08:32 Dose: 20 meq - Labs Labs: 02/26/17 04:20 02/26/17 04:20 PT 15.9 Seconds (9.8-13.1) H 02/24/17 10:30 INR 1.4 (0.9-1.2) H 02/24/17 10:30 APTT 28.5 Seconds (25.6-37.1) 02/24/17 10:30 - Additional Findings Additional findings: Physical exam: Constitutional- cooperative, awake, alert, confused Head- NCAT, PERRL Eye- PERRL, normal accommodation ENT- normal exam, MMM. 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 CT of head showed : 1.3 x 1.6 cm lesion in the left posterior parietal lobe with surrounding vasogenic edema is most compatible with mucinous/ cellular/ hemorrhagic metastatic deposit with patient's history of lung cancer. No evidence of midline shift or herniation. 1. Metastatic Brain Lesion Pt presented with aphasia , found to have Metastatic brain lesion on Ct of head Neurology consulted- discussed case with Dr Tomas hamilton to start Decadron for edema and Keppra for seizure proph Discussed with Oncology - Dr Logan -rec Radiotherapy Radiation therapy performed by Dr Taylor in [facility] Oncology PT,OT ,Speech therapy 2. [place] Cell Cancer with metastasis to lung Consult with Dr Logan Oncologist last chemo 02/10 plan for another chemo cycle on Friday 03/02 Radiotx for brain mets 3. Anemia and Thrombocytopenia sec to Chemotherapy Neutropenia resolved, received Granix was transfused 2 units PRBC on 02/24 Dr Logan Hemotologist on consult 4. History of Septic arthritis Left knee. cont Ancef IV q8 previous cultures from Left knee: MSSA Consult ID Dr Rivera Physical therapy 5. Scrotal irritation dermatitis associated with fecal and urine soiling Apply Nystatin powder to scrotum log hooker 6. DVT Prophylaxis SCD No anticoag due to low platelet 6. Code Status: DNR/DNI Surrogate decision maker : spouse Rebecca
[2017-02-27] MEDS: ceFAZolin IV 2 gm in Dextrose 2 GM/50 ML BAG IVPB SCH ×3 (01:00→16:59)
[2017-02-27] MEDS: Sodium Chloride 0.9% 500 ML IV SCH ×5 (03:15→18:32)
[2017-02-27] MEDS: Dexamethasone 2 MG in Sodium Chloride 0.9% 50 ML IVPB SCH ×2 (05:16→12:05)
[2017-02-27 06:06] LABS: BASO # 0.1 K/uL (0.0-0.2); BASO % 0.5 % (0.0-2.0); EOS # 0.1 K/uL (0.0-0.7); EOS % 0.6 % (0.0-4.0); HEMATOCRIT 24.7 % (35.0-51.0); LYMPH # 2.3 K/uL (1.0-4.3); LYMPH % 11.3 % (20.0-40.0); MEAN CELL VOLUME 82.4 fl (80.0-94.0); MEAN CORPUSCULAR HEMOGLOBIN 26.9 pg (27.0-31.0); MEAN CORPUSCULAR HGB CONC 32.7 g/dL (33.0-37.0); MEAN PLATELET VOLUME 8.3 fl (7.2-11.7); MONO # 1.4 K/uL (0.0-0.8); MONO % 6.8 % (0.0-10.0); NEUT # 16.5 K/uL (1.8-7.0); NEUT % 80.8 % (50.0-75.0); NRBC % 0.1 % (0.0-0.0); RED CELL DISTRIBUTION WIDTH 20.6 % (11.5-14.5); WHITE BLOOD COUNT 20.4 K/uL (4.8-10.8)
[2017-02-27 06:45] LABS: BLOOD UREA NITROGEN 13 mg/dl (9-20); CALCIUM 9.8 mg/dL (8.4-10.2); CARBON DIOXIDE 27 mmol/L (22-30); CHLORIDE 108 mmol/L (98-107); GFR AFRICAN-AMERICAN > 60; GLUCOSE,RANDOM 94 mg/dL (75-110); POTASSIUM 3.3 MMOL/L (3.6-5.0); SODIUM 143 mmol/l (132-148)
[2017-02-27] MEDS: levETIRAcetam 500 MG in Sodium Chloride 0.9% 100 ML IVPB SCH ×2 (08:57→20:27)
[2017-02-27] MEDS: Potassium Chloride 20 mEq ER Tab PO SCH ×2 (08:57→17:00)
[2017-02-27] MEDS: Pantoprazole 40 mg EC Tab PO SCH (08:59)
[2017-02-27] MEDS: Lactobacillus Acidophilus 500 MU Cap PO SCH ×2 (09:06→17:02)
--- NOTE | 2017-02-27 09:34 | CP.PCM.PN ---
Subjective - Date & Time of Evaluation Date of Evaluation: 02/27/17 Time of Evaluation: 09:33 - Subjective Subjective: Pt still is very confused. He is however still oin the RT. Will increase dose of te Decadron and see if it shows improvement. Objective - Vital Signs/Intake and Output Vital Signs (last 24 hours): Temp Pulse Resp BP Pulse Ox 98.5 F 77 98 H 137/71 19 L 02/27/17 08:39 02/27/17 08:58 02/27/17 08:39 02/27/17 08:58 02/27/17 08:39 - Medications Medications: Current Medications Acetaminophen (Tylenol 325mg Tab) 650 mg PO Q6 PRN PRN Reason: Fever >100.4 F Acetaminophen (Tylenol 325mg Tab) 650 mg PO Q4 PRN PRN Reason: Pain, Mild (1-3) Last Admin: 02/25/17 12:39 Dose: 650 mg Camphor/Menthol (Bengay) 1 applic TOP QID PRN PRN Reason: Muscle spasm Ferrous Sulfate (Feosol) 325 mg PO BID [facility] Last Admin: 02/27/17 08:57 Dose: 325 mg Sodium Chloride (Sodium Chloride 0.9%) 500 mls @ 100 mls/hr IV .Q5H [facility] Last Admin: 02/27/17 08:59 Dose: Not Given Levetiracetam 500 mg/ Sodium (Chloride) 105 mls @ 210 mls/hr IVPB Q12 [facility] Last Admin: 02/27/17 08:57 Dose: 210 mls/hr Cefazolin Sodium/Dextrose (Ancef Iv 2 Gm Duplex) 2 gm in 50 mls @ 50 mls/hr IVPB Q8 [facility] Last Admin: 02/27/17 08:56 Dose: 50 mls/hr Dexamethasone 2 mg/ Sodium (Chloride) 50.5 mls @ 101 mls/hr IVPB Q8@0400,1200, 2000 [facility] Last Admin: 02/27/17 05:16 Dose: 101 mls/hr Lactobacillus Acidophilus (Bacid Acidophilus) 1 cap PO BID [facility] Last Admin: 02/27/17 09:06 Dose: 1 cap Loperamide HCl (Imodium) 2 mg PO QID PRN PRN Reason: Diarrhea Metoprolol Tartrate (Lopressor) 25 mg PO Q12 [facility] Last Admin: 02/27/17 08:58 Dose: 25 mg Nystatin (Nystop Topical Powder) 1 applic TOP TID [facility] Last Admin: 02/27/17 08:58 Dose: 1 applic Pantoprazole Sodium (Protonix Ec Tab) 40 mg PO DAILY [facility] Last Admin: 02/27/17 08:59 Dose: 40 mg Potassium Chloride (K-Dur 20 Meq Er Tab) 20 meq PO BID [facility] Last Admin: 02/27/17 08:57 Dose: 20 meq - Labs Labs: 02/27/17 04:20 02/27/17 04:20 PT 15.9 Seconds (9.8-13.1) H 02/24/17 10:30 INR 1.4 (0.9-1.2) H 02/24/17 10:30 APTT 28.5 Seconds (25.6-37.1) 02/24/17 10:30
--- NOTE | 2017-02-27 09:37 | CP.PCM.PN ---
Subjective - Date & Time of Evaluation Date of Evaluation: 02/27/17 Time of Evaluation: 09:35 - Subjective Subjective: We had planned to sens him to RT based on te positive bone scan. However he had a all with a hip fracture and several bruises and he is scheduled for surgery on thursday. This takes precedence over the back pain so we will have to wait. Objective - Vital Signs/Intake and Output Vital Signs (last 24 hours): Temp Pulse Resp BP Pulse Ox 98.5 F 77 98 H 137/71 19 L 02/27/17 08:39 02/27/17 08:58 02/27/17 08:39 02/27/17 08:58 02/27/17 08:39 - Medications Medications: Current Medications Acetaminophen (Tylenol 325mg Tab) 650 mg PO Q6 PRN PRN Reason: Fever >100.4 F Acetaminophen (Tylenol 325mg Tab) 650 mg PO Q4 PRN PRN Reason: Pain, Mild (1-3) Last Admin: 02/25/17 12:39 Dose: 650 mg Camphor/Menthol (Bengay) 1 applic TOP QID PRN PRN Reason: Muscle spasm Ferrous Sulfate (Feosol) 325 mg PO BID [facility] Last Admin: 02/27/17 08:57 Dose: 325 mg Sodium Chloride (Sodium Chloride 0.9%) 500 mls @ 100 mls/hr IV .Q5H [facility] Last Admin: 02/27/17 08:59 Dose: Not Given Levetiracetam 500 mg/ Sodium (Chloride) 105 mls @ 210 mls/hr IVPB Q12 [facility] Last Admin: 02/27/17 08:57 Dose: 210 mls/hr Cefazolin Sodium/Dextrose (Ancef Iv 2 Gm Duplex) 2 gm in 50 mls @ 50 mls/hr IVPB Q8 [facility] Last Admin: 02/27/17 08:56 Dose: 50 mls/hr Dexamethasone 2 mg/ Sodium (Chloride) 50.5 mls @ 101 mls/hr IVPB Q8@0400,1200, 2000 [facility] Last Admin: 02/27/17 05:16 Dose: 101 mls/hr Lactobacillus Acidophilus (Bacid Acidophilus) 1 cap PO BID [facility] Last Admin: 02/27/17 09:06 Dose: 1 cap Loperamide HCl (Imodium) 2 mg PO QID PRN PRN Reason: Diarrhea Metoprolol Tartrate (Lopressor) 25 mg PO Q12 [facility] Last Admin: 02/27/17 08:58 Dose: 25 mg Nystatin (Nystop Topical Powder) 1 applic TOP TID [facility] Last Admin: 02/27/17 08:58 Dose: 1 applic Pantoprazole Sodium (Protonix Ec Tab) 40 mg PO DAILY [facility] Last Admin: 02/27/17 08:59 Dose: 40 mg Potassium Chloride (K-Dur 20 Meq Er Tab) 20 meq PO BID [facility] Last Admin: 02/27/17 08:57 Dose: 20 meq - Labs Labs: 02/27/17 04:20 02/27/17 04:20 PT 15.9 Seconds (9.8-13.1) H 02/24/17 10:30 INR 1.4 (0.9-1.2) H 02/24/17 10:30 APTT 28.5 Seconds (25.6-37.1) 02/24/17 10:30
--- NOTE | 2017-02-27 14:20 | CP.PCM.PN ---
Subjective - Date & Time of Evaluation Date of Evaluation: 02/27/17 Time of Evaluation: 07:00 - Subjective Subjective: events noted for OR Objective - Vital Signs/Intake and Output Vital Signs (last 24 hours): Temp Pulse Resp BP Pulse Ox 98.1 F 72 19 149/87 94 L 02/27/17 13:01 02/27/17 13:01 02/27/17 13:01 02/27/17 13:01 02/27/17 13:01 - Medications Medications: Current Medications Acetaminophen (Tylenol 325mg Tab) 650 mg PO Q6 PRN PRN Reason: Fever >100.4 F Acetaminophen (Tylenol 325mg Tab) 650 mg PO Q4 PRN PRN Reason: Pain, Mild (1-3) Last Admin: 02/25/17 12:39 Dose: 650 mg Camphor/Menthol (Bengay) 1 applic TOP QID PRN PRN Reason: Muscle spasm Ferrous Sulfate (Feosol) 325 mg PO BID [facility] Last Admin: 02/27/17 08:57 Dose: 325 mg Sodium Chloride (Sodium Chloride 0.9%) 500 mls @ 100 mls/hr IV .Q5H [facility] Last Admin: 02/27/17 08:59 Dose: Not Given Levetiracetam 500 mg/ Sodium (Chloride) 105 mls @ 210 mls/hr IVPB Q12 [facility] Last Admin: 02/27/17 08:57 Dose: 210 mls/hr Cefazolin Sodium/Dextrose (Ancef Iv 2 Gm Duplex) 2 gm in 50 mls @ 50 mls/hr IVPB Q8 [facility] Last Admin: 02/27/17 08:56 Dose: 50 mls/hr Dexamethasone 2 mg/ Sodium (Chloride) 50.5 mls @ 101 mls/hr IVPB Q8@0400,1200, 2000 [facility] Last Admin: 02/27/17 12:05 Dose: Not Given Lactobacillus Acidophilus (Bacid Acidophilus) 1 cap PO BID [facility] Last Admin: 02/27/17 09:06 Dose: 1 cap Loperamide HCl (Imodium) 2 mg PO QID PRN PRN Reason: Diarrhea Metoprolol Tartrate (Lopressor) 25 mg PO Q12 [facility] Last Admin: 02/27/17 08:58 Dose: 25 mg Nystatin (Nystop Topical Powder) 1 applic TOP TID [facility] Last Admin: 02/27/17 12:05 Dose: Not Given Pantoprazole Sodium (Protonix Ec Tab) 40 mg PO DAILY [facility] Last Admin: 02/27/17 08:59 Dose: 40 mg Potassium Chloride (K-Dur 20 Meq Er Tab) 20 meq PO BID [facility] Last Admin: 02/27/17 08:57 Dose: 20 meq - Labs Labs: 02/27/17 04:20 02/27/17 04:20 PT 15.9 Seconds (9.8-13.1) H 02/24/17 10:30 INR 1.4 (0.9-1.2) H 02/24/17 10:30 APTT 28.5 Seconds (25.6-37.1) 02/24/17 10:30 - Constitutional Appears: Confused, Chronically Ill - Head Exam Head Exam: NORMOCEPHALIC - Eye Exam Eye Exam: PERRL - ENT Exam ENT Exam: Mucous Membranes Dry - Neck Exam Neck Exam: absent: Lymphadenopathy - Respiratory Exam Respiratory Exam: Decreased Breath Sounds, Rhonchi - Cardiovascular Exam Cardiovascular Exam: REGULAR RHYTHM - GI/Abdominal Exam GI & Abdominal Exam: Distended, Soft - Rectal Exam Rectal Exam: Deferred - Exam Exam: NORMAL INSPECTION - Extremities Exam Extremities Exam: absent: Pedal Edema - Back Exam Back Exam: absent: CVA tenderness (L), CVA tenderness (R) - Neurological Exam Neurological Exam: Alert Assessment and Plan (1) CVA (cerebral vascular accident) Status: Acute (2) Metastatic cancer Status: Acute (3) Cellulitis Status: Acute (4) Chemotherapy-induced diarrhea Status: Acute (5) Knee effusion, left Status: Acute
[2017-02-27] MEDS ORDERED: Povidone Iodine Topical 10% Sol ONE (14:31)
--- NOTE | 2017-02-27 17:08 | CP.PCM.PN ---
Subjective - Date & Time of Evaluation Date of Evaluation: 02/27/17 Time of Evaluation: 14:00 - Subjective Subjective: Pt just came back from [facility] from [place] Still with aphasia family at bedside- wants 3 stitches on knee removed - stitches almost coming off - removed stiches after cleaning area pt is awake, alert , has difficulty understanding command denies CP no abd pain denies headache denies pain on left knee , able to do ROM on knee without pain Objective - Vital Signs/Intake and Output Vital Signs (last 24 hours): Temp Pulse Resp BP Pulse Ox 98.5 F 81 16 86/47 L 92 L 02/27/17 16:37 02/27/17 16:37 02/27/17 16:37 02/27/17 16:37 02/27/17 16:37 - Medications Medications: Current Medications Acetaminophen (Tylenol 325mg Tab) 650 mg PO Q6 PRN PRN Reason: Fever >100.4 F Acetaminophen (Tylenol 325mg Tab) 650 mg PO Q4 PRN PRN Reason: Pain, Mild (1-3) Last Admin: 02/25/17 12:39 Dose: 650 mg Camphor/Menthol (Bengay) 1 applic TOP QID PRN PRN Reason: Muscle spasm Dexamethasone (Decadron Inj) 4 mg IVP Q8H [facility] Ferrous Sulfate (Feosol) 325 mg PO BID [facility] Last Admin: 02/27/17 17:00 Dose: 325 mg Sodium Chloride (Sodium Chloride 0.9%) 500 mls @ 100 mls/hr IV .Q5H [facility] Last Admin: 02/27/17 15:38 Dose: 100 mls/hr Levetiracetam 500 mg/ Sodium (Chloride) 105 mls @ 210 mls/hr IVPB Q12 [facility] Last Admin: 02/27/17 08:57 Dose: 210 mls/hr Cefazolin Sodium/Dextrose (Ancef Iv 2 Gm Duplex) 2 gm in 50 mls @ 50 mls/hr IVPB Q8 [facility] Last Admin: 02/27/17 16:59 Dose: 50 mls/hr Lactobacillus Acidophilus (Bacid Acidophilus) 1 cap PO BID [facility] Last Admin: 02/27/17 17:02 Dose: 1 cap Loperamide HCl (Imodium) 2 mg PO QID PRN PRN Reason: Diarrhea Metoprolol Tartrate (Lopressor) 25 mg PO Q12 [facility] Last Admin: 02/27/17 08:58 Dose: 25 mg Nystatin (Nystop Topical Powder) 1 applic TOP TID [facility] Last Admin: 02/27/17 17:00 Dose: 1 applic Pantoprazole Sodium (Protonix Ec Tab) 40 mg PO DAILY [facility] Last Admin: 02/27/17 08:59 Dose: 40 mg Potassium Chloride (K-Dur 20 Meq Er Tab) 20 meq PO BID [facility] Last Admin: 02/27/17 17:00 Dose: 20 meq - Labs Labs: 02/27/17 04:20 02/27/17 04:20 PT 15.9 Seconds (9.8-13.1) H 02/24/17 10:30 INR 1.4 (0.9-1.2) H 02/24/17 10:30 APTT 28.5 Seconds (25.6-37.1) 02/24/17 10:30 - Constitutional Appears: No Acute Distress (36), Chronically Ill - Head Exam Head Exam: NORMOCEPHALIC - Eye Exam Eye Exam: EOMI Pupil Exam: NORMAL ACCOMODATION - ENT Exam ENT Exam: Mucous Membranes Moist, Normal External Ear Exam - Neck Exam Neck Exam: Full ROM. absent: Meningismus - Respiratory Exam Respiratory Exam: Rhonchi, NORMAL BREATHING PATTERN. absent: Respiratory Distress - Cardiovascular Exam Cardiovascular Exam: REGULAR RHYTHM, +S1, +S2 - GI/Abdominal Exam GI & Abdominal Exam: Soft, Normal Bowel Sounds. absent: Tenderness - Extremities Exam Extremities Exam: Normal Capillary Refill. absent: Calf Tenderness, Pedal Edema Additional comments: no pain on ROM of left knee - Back Exam Back Exam: absent: CVA tenderness (L), CVA tenderness (R) - Neurological Exam Neurological Exam: Alert, Awake Additional comments: moves all extremities oriented to person - Psychiatric Exam Psychiatric exam: Normal Affect, Normal Mood - Skin Skin Exam: Dry, Normal Color, Warm Assessment and Plan - Assessment and Plan (Free Text) Assessment: 76 year old male with hx of [place] 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 CT of head showed : 1.3 x 1.6 cm lesion in the left posterior parietal lobe with surrounding vasogenic edema is most compatible with mucinous/ cellular/ hemorrhagic metastatic deposit with patient's history of lung cancer. No evidence of midline shift or herniation. 1. Metastatic Brain Lesion Pt presented with aphasia , found to have Metastatic brain lesion on Ct of head Neurology consulted- discussed case with Dr Tomas hamilton to start Decadron for edema and Keppra for seizure proph Discussed with Oncology - Dr Desmond martin Radiotherapy Radiation therapy performed by Dr Taylor in [facility] Oncology PT,OT ,Speech therapy aphasiastill persistent, discussed with dr Donny hamilton to increase Decadron to 4 mg q8 2. Raúl Cell Cancer with metastasis to lung Consult with Dr Logan Oncologist last chemo 02/10 plan for another chemo cycle on Friday 03/02 Radiotx for brain mets 3. Anemia and Thrombocytopenia sec to Chemotherapy Neutropenia resolved, received Granix was transfused 2 units PRBC on 02/24 Dr Logan Hemotologist on consult 4. History of Septic arthritis Left knee. cont Ancef IV q8 previous cultures from Left knee: MSSA Consult ID Dr Rivera Physical therapy 5. Scrotal irritation dermatitis associated with fecal and urine soiling Apply Nystatin powder to scrotum framing manager 6. DVT Prophylaxis SCD No anticoag due to low platelet Code Status: DNR/DNI Surrogate decision maker : spouse Rebecca
[2017-02-27] MEDS ORDERED: Potassium Chloride 20 mEq ER Tab PO ONE (17:26)
[2017-02-27] MEDS ORDERED: Dexamethasone 4 MG in Sodium Chloride 0.9% 50 ML IVPB SCH (20:00)
[2017-02-27] MEDS: Dexamethasone 4 mg/1 ml IVP SCH (20:19)
[2017-02-28] MEDS: Sodium Chloride 0.9% 500 ML IV SCH ×4 (00:03→20:52)
[2017-02-28] MEDS: ceFAZolin IV 2 gm in Dextrose 2 GM/50 ML BAG IVPB SCH ×3 (00:04→17:08)
[2017-02-28] MEDS: Dexamethasone 4 mg/1 ml IVP SCH ×3 (03:57→20:48)
[2017-02-28 07:40] LABS: MEAN CELL VOLUME 83.8 fl (80.0-94.0); MEAN CORPUSCULAR HEMOGLOBIN 27.2 pg (27.0-31.0); MEAN CORPUSCULAR HGB CONC 32.4 g/dL (33.0-37.0); RED CELL DISTRIBUTION WIDTH 20.5 % (11.5-14.5); WHITE BLOOD COUNT 22.1 K/uL (4.8-10.8)
[2017-02-28 07:49] LABS: BLOOD UREA NITROGEN 14 mg/dl (9-20); CALCIUM 9.8 mg/dL (8.4-10.2); CARBON DIOXIDE 28 mmol/L (22-30); CHLORIDE 106 mmol/L (98-107); GFR AFRICAN-AMERICAN > 60; GLUCOSE,RANDOM 104 mg/dL (75-110); POTASSIUM 3.5 MMOL/L (3.6-5.0); SODIUM 142 mmol/l (132-148)
[2017-02-28] MEDS ORDERED: Potassium Chloride 20 mEq/15 ml LIQ UD PO ONE (08:04)
--- NOTE | 2017-02-28 08:05 | CP.PCM.PN ---
Subjective - Date & Time of Evaluation Date of Evaluation: 02/28/17 Time of Evaluation: 08:05 Objective - Vital Signs/Intake and Output Vital Signs (last 24 hours): Temp Pulse Resp BP Pulse Ox 98.4 F 73 18 120/78 99 02/28/17 05:21 02/28/17 05:21 02/28/17 05:21 02/28/17 05:21 02/28/17 05:21 - Medications Medications: Current Medications Acetaminophen (Tylenol 325mg Tab) 650 mg PO Q6 PRN PRN Reason: Fever >100.4 F Acetaminophen (Tylenol 325mg Tab) 650 mg PO Q4 PRN PRN Reason: Pain, Mild (1-3) Last Admin: 02/25/17 12:39 Dose: 650 mg Camphor/Menthol (Bengay) 1 applic TOP QID PRN PRN Reason: Muscle spasm Dexamethasone (Decadron Inj) 4 mg IVP Q8H [facility] Last Admin: 02/28/17 03:57 Dose: 4 mg Ferrous Sulfate (Feosol) 325 mg PO BID [facility] Last Admin: 02/27/17 17:00 Dose: 325 mg Sodium Chloride (Sodium Chloride 0.9%) 500 mls @ 100 mls/hr IV .Q5H [facility] Last Admin: 02/28/17 03:57 Dose: 100 mls/hr Levetiracetam 500 mg/ Sodium (Chloride) 105 mls @ 210 mls/hr IVPB Q12 [facility] Last Admin: 02/27/17 20:27 Dose: 210 mls/hr Cefazolin Sodium/Dextrose (Ancef Iv 2 Gm Duplex) 2 gm in 50 mls @ 50 mls/hr IVPB Q8 [facility] Last Admin: 02/28/17 00:04 Dose: 50 mls/hr Magnesium Sulfate 2 gm/ Sodium (Chloride) 104 mls @ 104 mls/hr IVPB ONCE ONE PRN Reason: 2 GM/HR Stop: 02/28/17 09:03 Lactobacillus Acidophilus (Bacid Acidophilus) 1 cap PO BID [facility] Last Admin: 02/27/17 17:02 Dose: 1 cap Loperamide HCl (Imodium) 2 mg PO QID PRN PRN Reason: Diarrhea Metoprolol Tartrate (Lopressor) 25 mg PO Q12 [facility] Last Admin: 02/27/17 20:19 Dose: 25 mg Nystatin (Nystop Topical Powder) 1 applic TOP TID [facility] Last Admin: 02/27/17 17:00 Dose: 1 applic Pantoprazole Sodium (Protonix Ec Tab) 40 mg PO DAILY [facility] Last Admin: 02/27/17 08:59 Dose: 40 mg Potassium Chloride (K-Dur 20 Meq Er Tab) 20 meq PO BID [facility] Last Admin: 02/27/17 17:00 Dose: 20 meq Potassium Chloride (Potassium Chloride Oral Soln) 40 meq PO ONCE ONE Stop: 02/28/17 08:05 - Labs Labs: 02/28/17 06:30 02/28/17 06:30 PT 15.9 Seconds (9.8-13.1) H 02/24/17 10:30 INR 1.4 (0.9-1.2) H 02/24/17 10:30 APTT 28.5 Seconds (25.6-37.1) 02/24/17 10:30 Assessment and Plan - Assessment and Plan (Free Text) Plan: 76 year old male with 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 CT of head showed : 1.3 x 1.6 cm lesion in the left posterior parietal lobe with surrounding vasogenic edema is most compatible with mucinous/ cellular/ hemorrhagic metastatic deposit with patient's history of lung cancer. No evidence of midline shift or herniation. 1. Metastatic Brain Lesion Pt presented with aphasia , found to have Metastatic brain lesion on Ct of head Neurology consulted- discussed case with Dr Tomas hamilton to start Decadron for edema and Keppra for seizure proph Discussed with Oncology - Dr Desmond martin Radiotherapy Radiation therapy performed by Dr Taylor in [facility] Oncology PT,OT ,Speech therapy aphasiastill persistent, discussed with dr Donny hamilton to increase Decadron to 4 mg q8 2. Raúl Cell Cancer with metastasis to lung Consult with Dr Logan Oncologist last chemo 02/10 plan for another chemo cycle on Friday 03/02 Radiotx for brain mets 3. Anemia and Thrombocytopenia sec to Chemotherapy Neutropenia resolved, received Granix was transfused 2 units PRBC on 02/24 Dr Logan Hemotologist on consult 4. History of Septic arthritis Left knee. cont Ancef IV q8 previous cultures from Left knee: MSSA Consult ID Dr Rivera Physical therapy 5. Scrotal irritation dermatitis associated with fecal and urine soiling Apply Nystatin powder to scrotum cheesemaker helper 6. DVT Prophylaxis SCD No anticoag due to low platelet Code Status: DNR/DNI Surrogate decision maker : spouse Rebecca
[2017-02-28] MEDS ORDERED: Magnesium Sulfate 2 gm/50 ml 2 GM/50 ML BAG IV ONE (08:15)
[2017-02-28] MEDS: Potassium Chloride 20 mEq ER Tab PO SCH ×2 (09:01→17:09)
[2017-02-28] MEDS: Pantoprazole 40 mg EC Tab PO SCH (09:02)
[2017-02-28] MEDS: levETIRAcetam 500 MG in Sodium Chloride 0.9% 100 ML IVPB SCH ×2 (09:06→20:51)
[2017-02-28] MEDS: Lactobacillus Acidophilus 500 MU Cap PO SCH ×2 (09:12→17:08)
--- NOTE | 2017-02-28 14:30 | CP.PCM.PN ---
Subjective - Date & Time of Evaluation Date of Evaluation: 02/28/17 Time of Evaluation: 10:00 - Subjective Subjective: Patient seen and examined at bedside. He is resting comfortably, has no complaints today. A bit more lethargic today. No acute events overnight as per nursing staff. Objective - Vital Signs/Intake and Output Vital Signs (last 24 hours): Temp Pulse Resp BP Pulse Ox 97.9 F 72 20 124/73 93 L 02/28/17 13:09 02/28/17 13:09 02/28/17 13:09 02/28/17 13:09 02/28/17 13:09 - Medications Medications: Current Medications Acetaminophen (Tylenol 325mg Tab) 650 mg PO Q6 PRN PRN Reason: Fever >100.4 F Acetaminophen (Tylenol 325mg Tab) 650 mg PO Q4 PRN PRN Reason: Pain, Mild (1-3) Last Admin: 02/25/17 12:39 Dose: 650 mg Camphor/Menthol (Bengay) 1 applic TOP QID PRN PRN Reason: Muscle spasm Dexamethasone (Decadron Inj) 4 mg IVP Q8H [facility] Last Admin: 02/28/17 03:57 Dose: 4 mg Ferrous Sulfate (Feosol) 325 mg PO BID [facility] Last Admin: 02/28/17 09:03 Dose: 325 mg Sodium Chloride (Sodium Chloride 0.9%) 500 mls @ 100 mls/hr IV .Q5H [facility] Last Admin: 02/28/17 03:57 Dose: 100 mls/hr Levetiracetam 500 mg/ Sodium (Chloride) 105 mls @ 210 mls/hr IVPB Q12 [facility] Last Admin: 02/28/17 09:06 Dose: 210 mls/hr Cefazolin Sodium/Dextrose (Ancef Iv 2 Gm Duplex) 2 gm in 50 mls @ 50 mls/hr IVPB Q8 [facility] Last Admin: 02/28/17 08:48 Dose: 50 mls/hr Lactobacillus Acidophilus (Bacid Acidophilus) 1 cap PO BID [facility] Last Admin: 02/28/17 09:12 Dose: 1 cap Loperamide HCl (Imodium) 2 mg PO QID PRN PRN Reason: Diarrhea Magnesium Oxide (Mag-Ox) 400 mg PO BID [facility] Metoprolol Tartrate (Lopressor) 25 mg PO Q12 [facility] Last Admin: 02/28/17 09:03 Dose: 25 mg Nystatin (Nystop Topical Powder) 1 applic TOP TID [facility] Last Admin: 02/28/17 09:12 Dose: 1 applic Pantoprazole Sodium (Protonix Ec Tab) 40 mg PO DAILY [facility] Last Admin: 02/28/17 09:02 Dose: 40 mg Potassium Chloride (K-Dur 20 Meq Er Tab) 20 meq PO BID [facility] Last Admin: 02/28/17 09:01 Dose: 20 meq - Labs Labs: 02/28/17 06:30 02/28/17 06:30 PT 15.9 Seconds (9.8-13.1) H 02/24/17 10:30 INR 1.4 (0.9-1.2) H 02/24/17 10:30 APTT 28.5 Seconds (25.6-37.1) 02/24/17 10:30 - ENT Exam Additional comments: Physical exam: Constitutional- cooperative, awake, alert, confused Head- NCAT, PERRL Eye- PERRL, normal accommodation ENT- normal exam, MMM. 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 CT of head showed : 1.3 x 1.6 cm lesion in the left posterior parietal lobe with surrounding vasogenic edema is most compatible with mucinous/ cellular/ hemorrhagic metastatic deposit with patient's history of lung cancer. No evidence of midline shift or herniation. 1. Metastatic Brain Lesion Pt presented with aphasia , found to have Metastatic brain lesion on Ct of head Neurology consulted- discussed case with Dr Tomas hamilton to start Decadron for edema and Keppra for seizure proph Discussed with Oncology - Dr Logan -joy Radiotherapy Radiation therapy performed by Dr Taylor in [facility] Oncology PT,OT ,Speech therapy aphasia still persistent, discussed with dr Donny hamilton to increase Decadron to 4 mg q8 2. [place] Cell Cancer with metastasis to lung Consult with Dr Logan Oncologist last chemo 02/10 plan for another chemo cycle on Friday 03/02 Radiotx for brain mets 3. Anemia and Thrombocytopenia sec to Chemotherapy Neutropenia resolved, received Granix was transfused 2 units PRBC on 02/24 Dr Logan Hemotologist on consult 3. Hypomagnesemia - 1.3 - 2 grams Mag sulfate IV ordered by Dr. Holley Campoverde - Also starting Magox 400 mg po BID 4. History of Septic arthritis Left knee. cont Ancef IV q8 previous cultures from Left knee: MSSA Consult ID Dr Rivera Physical therapy 5. 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 DVT Prophylaxis SCD No anticoag due to low platelet
[2017-02-28] MEDS: Magnesium Oxide 400 mg Tab UD PO SCH (17:09)
[2017-03-01] MEDS: ceFAZolin IV 2 gm in Dextrose 2 GM/50 ML BAG IVPB SCH ×3 (00:29→16:48)
[2017-03-01] MEDS: Dexamethasone 4 mg/1 ml IVP SCH ×3 (04:13→20:51)
[2017-03-01 06:56] LABS: BASO % 0.2 % (0.0-2.0); HEMATOCRIT 26.6 % (35.0-51.0); LYMPH # 1.5 K/uL (1.0-4.3); LYMPH % 7.3 % (20.0-40.0); MEAN CELL VOLUME 84.1 fl (80.0-94.0); MEAN CORPUSCULAR HEMOGLOBIN 26.9 pg (27.0-31.0); MEAN PLATELET VOLUME 8.5 fl (7.2-11.7); MONO # 1.1 K/uL (0.0-0.8); MONO % 5.5 % (0.0-10.0); NRBC % 0.2 % (0.0-0.0); PLATELET COUNT 238 K/uL (130-400); RED CELL DISTRIBUTION WIDTH 21.4 % (11.5-14.5); WHITE BLOOD COUNT 20.7 K/uL (4.8-10.8)
[2017-03-01 06:57] LABS: BLOOD UREA NITROGEN 14 mg/dl (9-20); CALCIUM 9.5 mg/dL (8.4-10.2); CARBON DIOXIDE 26 mmol/L (22-30); CHLORIDE 105 mmol/L (98-107); GFR AFRICAN-AMERICAN > 60; GLUCOSE,RANDOM 111 mg/dL (75-110); MAGNESIUM 1.1 MG/DL (1.6-2.3); POTASSIUM 4.1 MMOL/L (3.6-5.0); SODIUM 138 mmol/l (132-148)
[2017-03-01] MEDS: levETIRAcetam 500 MG in Sodium Chloride 0.9% 100 ML IVPB SCH ×2 (09:00→20:51)
[2017-03-01] MEDS: Magnesium Oxide 400 mg Tab UD PO SCH ×2 (09:01→16:48)
[2017-03-01] MEDS: Lactobacillus Acidophilus 500 MU Cap PO SCH ×2 (09:01→16:49)
[2017-03-01] MEDS: Pantoprazole 40 mg EC Tab PO SCH (09:02)
[2017-03-01] MEDS: Potassium Chloride 20 mEq ER Tab PO SCH ×2 (09:03→16:50)
--- NOTE | 2017-03-01 10:17 | CP.PCM.PN ---
Subjective - Date & Time of Evaluation Date of Evaluation: 03/01/17 Time of Evaluation: 10:11 - Subjective Subjective: Pt is still very confused and tired. He is on radiation therapy to his brain. His cbc is more or less stable. HGB is 8.5, and may need transfusion if the count drops to below 8.0gms Prognosis poor Objective - Vital Signs/Intake and Output Vital Signs (last 24 hours): Temp Pulse Resp BP Pulse Ox 98.2 F 73 20 148/70 95 03/01/17 08:00 03/01/17 09:02 03/01/17 08:00 03/01/17 09:02 03/01/17 08:00 - Medications Medications: Current Medications Acetaminophen (Tylenol 325mg Tab) 650 mg PO Q6 PRN PRN Reason: Fever >100.4 F Acetaminophen (Tylenol 325mg Tab) 650 mg PO Q4 PRN PRN Reason: Pain, Mild (1-3) Last Admin: 02/25/17 12:39 Dose: 650 mg Camphor/Menthol (Bengay) 1 applic TOP QID PRN PRN Reason: Muscle spasm Dexamethasone (Decadron Inj) 4 mg IVP Q8H [facility] Last Admin: 03/01/17 04:13 Dose: 4 mg Ferrous Sulfate (Feosol) 325 mg PO BID [facility] Last Admin: 03/01/17 09:01 Dose: 325 mg Sodium Chloride (Sodium Chloride 0.9%) 500 mls @ 100 mls/hr IV .Q5H [facility] Last Admin: 02/28/17 20:52 Dose: 100 mls/hr Levetiracetam 500 mg/ Sodium (Chloride) 105 mls @ 210 mls/hr IVPB Q12 [facility] Last Admin: 03/01/17 09:00 Dose: 210 mls/hr Cefazolin Sodium/Dextrose (Ancef Iv 2 Gm Duplex) 2 gm in 50 mls @ 50 mls/hr IVPB Q8 [facility] Last Admin: 03/01/17 09:00 Dose: 50 mls/hr Lactobacillus Acidophilus (Bacid Acidophilus) 1 cap PO BID [facility] Last Admin: 03/01/17 09:01 Dose: 1 cap Loperamide HCl (Imodium) 2 mg PO QID PRN PRN Reason: Diarrhea Magnesium Oxide (Mag-Ox) 400 mg PO BID [facility] Last Admin: 03/01/17 09:01 Dose: 400 mg Metoprolol Tartrate (Lopressor) 25 mg PO Q12 [facility] Last Admin: 03/01/17 09:02 Dose: 25 mg Nystatin (Nystop Topical Powder) 1 applic TOP TID [facility] Last Admin: 03/01/17 09:02 Dose: 1 applic Pantoprazole Sodium (Protonix Ec Tab) 40 mg PO DAILY [facility] Last Admin: 03/01/17 09:02 Dose: 40 mg Potassium Chloride (K-Dur 20 Meq Er Tab) 20 meq PO BID [facility] Last Admin: 03/01/17 09:03 Dose: 20 meq - Labs Labs: 03/01/17 05:30 03/01/17 05:30 PT 15.9 Seconds (9.8-13.1) H 02/24/17 10:30 INR 1.4 (0.9-1.2) H 02/24/17 10:30 APTT 28.5 Seconds (25.6-37.1) 02/24/17 10:30
[2017-03-01] MEDS ORDERED: Magnesium Sulfate 2 gm/50 ml 2 GM/50 ML BAG IVPB ONE (10:37)
--- NOTE | 2017-03-01 10:54 | CP.PCM.PN ---
Subjective - Date & Time of Evaluation Date of Evaluation: 03/01/17 Time of Evaluation: 10:30 - Subjective Subjective: Patient seen and examined at bedside. Expressive aphasia Pleasantly confused, at times lethargic Overall mental status seems to be declining further No acute events overnight as per nursing staff Objective - Vital Signs/Intake and Output Vital Signs (last 24 hours): Temp Pulse Resp BP Pulse Ox 98.2 F 73 20 148/70 95 03/01/17 08:00 03/01/17 09:02 03/01/17 08:00 03/01/17 09:02 03/01/17 08:00 - Medications Medications: Current Medications Acetaminophen (Tylenol 325mg Tab) 650 mg PO Q6 PRN PRN Reason: Fever >100.4 F Acetaminophen (Tylenol 325mg Tab) 650 mg PO Q4 PRN PRN Reason: Pain, Mild (1-3) Last Admin: 02/25/17 12:39 Dose: 650 mg Camphor/Menthol (Bengay) 1 applic TOP QID PRN PRN Reason: Muscle spasm Dexamethasone (Decadron Inj) 4 mg IVP Q8H [facility] Last Admin: 03/01/17 04:13 Dose: 4 mg Ferrous Sulfate (Feosol) 325 mg PO BID [facility] Last Admin: 03/01/17 09:01 Dose: 325 mg Sodium Chloride (Sodium Chloride 0.9%) 500 mls @ 100 mls/hr IV .Q5H [facility] Last Admin: 02/28/17 20:52 Dose: 100 mls/hr Levetiracetam 500 mg/ Sodium (Chloride) 105 mls @ 210 mls/hr IVPB Q12 [facility] Last Admin: 03/01/17 09:00 Dose: 210 mls/hr Cefazolin Sodium/Dextrose (Ancef Iv 2 Gm Duplex) 2 gm in 50 mls @ 50 mls/hr IVPB Q8 [facility] Last Admin: 03/01/17 09:00 Dose: 50 mls/hr Magnesium Sulfate (Magnesium Sulfate 2 Gm/50 Ml Water) 2 gm in 50 mls @ 50 mls/ hr IVPB ONCE ONE PRN Reason: 2 GM/HR Stop: 03/01/17 11:36 Lactobacillus Acidophilus (Bacid Acidophilus) 1 cap PO BID [facility] Last Admin: 03/01/17 09:01 Dose: 1 cap Loperamide HCl (Imodium) 2 mg PO QID PRN PRN Reason: Diarrhea Magnesium Oxide (Mag-Ox) 400 mg PO BID [facility] Last Admin: 03/01/17 09:01 Dose: 400 mg Metoprolol Tartrate (Lopressor) 25 mg PO Q12 [facility] Last Admin: 03/01/17 09:02 Dose: 25 mg Nystatin (Nystop Topical Powder) 1 applic TOP TID [facility] Last Admin: 03/01/17 09:02 Dose: 1 applic Pantoprazole Sodium (Protonix Ec Tab) 40 mg PO DAILY [facility] Last Admin: 03/01/17 09:02 Dose: 40 mg Potassium Chloride (K-Dur 20 Meq Er Tab) 20 meq PO BID [facility] Last Admin: 03/01/17 09:03 Dose: 20 meq - Labs Labs: 03/01/17 05:30 03/01/17 05:30 PT 15.9 Seconds (9.8-13.1) H 02/24/17 10:30 INR 1.4 (0.9-1.2) H 02/24/17 10:30 APTT 28.5 Seconds (25.6-37.1) 02/24/17 10:30 - Additional Findings Additional findings: Physical exam: Constitutional- cooperative, awake, alert, confused Head- NCAT, PERRL Eye- PERRL, normal accommodation ENT- normal exam, MMM. Neck- normal inspection, supple, no JVD Respiratory- CTAB, no wheezes rales rhonchi Cardiovascular- RRR, +S1, +S2 no MRG GI/Abdominal- normal bowel sounds, soft, no mass, no hsm Skin- warm, dry Extremities Exam- normal capillary refill, normal inspection Neurological Exam- Patient is confused but awake and alert, difficulty in comprehension, CN II-XII intact Psych- normal mood, normal affect Assessment and Plan - Assessment and Plan (Free Text) Plan: Assessment: 76 year old male with hx of [place] 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 CT of head showed : 1.3 x 1.6 cm lesion in the left posterior parietal lobe with surrounding vasogenic edema is most compatible with mucinous/ cellular/ hemorrhagic metastatic deposit with patient's history of lung cancer. No evidence of midline shift or herniation. 1. Metastatic Brain Lesion Pt presented with aphasia , found to have Metastatic brain lesion on Ct of head Neurology consulted- discussed case with Dr Tomas hamilton to start Decadron for edema and Keppra for seizure proph Discussed with Oncology - Dr Hoyt -joy Radiotherapy Radiation therapy performed by Dr Taylor in [facility] Oncology PT,OT ,Speech therapy aphasia still persistent, discussed with dr Donny hoyt - increased Decadron to 4 mg q8 2. [place] Cell Cancer with metastasis to lung Consult with Dr Hoyt Oncologist last chemo 02/10 plan for another chemo cycle on Friday 03/02 Radiotx for brain mets 3. Anemia and Thrombocytopenia sec to Chemotherapy Neutropenia resolved, received Granix was transfused 2 units PRBC on 02/24 Dr Hoyt Hemotologist on consult 3. Hypomagnesemia - 1.3-->1.1 - 2 grams Mag sulfate IV given yesterday, will give 2 more today - Continue Magox 400 mg po BID 4. History of Septic arthritis Left knee. cont Ancef IV q8 previous cultures from Left knee: MSSA Consult ID Dr Rivera Physical therapy 5. 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 DVT Prophylaxis SCD No anticoag due to low platelet 7. Failure to thrive Continue Ensure Encourage po intake as much as possible Overall, prognosis is poor Patient may be candidate for hospice moving forward
[2017-03-01] MEDS: Sodium Chloride 0.9% 500 ML IV SCH ×2 (11:20→15:51)
[2017-03-01 12:12] LABS: NEUTROPHIL 84 % (42-75); TOTAL CELLS COUNTED 100
--- NOTE | 2017-03-01 12:23 | CP.PCM.PN ---
Subjective - Date & Time of Evaluation Date of Evaluation: 03/01/17 Time of Evaluation: 12:21 - Subjective Subjective: Pt is very confused , and keeps taking his clothes off. He is incontinent with the bowels,. He is to continue the Rt to the brain tomorrow, Objective - Vital Signs/Intake and Output Vital Signs (last 24 hours): Temp Pulse Resp BP Pulse Ox 98.2 F 73 20 148/70 95 03/01/17 08:00 03/01/17 09:02 03/01/17 08:00 03/01/17 09:02 03/01/17 08:00 - Medications Medications: Current Medications Acetaminophen (Tylenol 325mg Tab) 650 mg PO Q6 PRN PRN Reason: Fever >100.4 F Acetaminophen (Tylenol 325mg Tab) 650 mg PO Q4 PRN PRN Reason: Pain, Mild (1-3) Last Admin: 02/25/17 12:39 Dose: 650 mg Camphor/Menthol (Bengay) 1 applic TOP QID PRN PRN Reason: Muscle spasm Dexamethasone (Decadron Inj) 4 mg IVP Q8H [facility] Last Admin: 03/01/17 12:19 Dose: 4 mg Ferrous Sulfate (Feosol) 325 mg PO BID [facility] Last Admin: 03/01/17 09:01 Dose: 325 mg Sodium Chloride (Sodium Chloride 0.9%) 500 mls @ 100 mls/hr IV .Q5H [facility] Last Admin: 02/28/17 20:52 Dose: 100 mls/hr Levetiracetam 500 mg/ Sodium (Chloride) 105 mls @ 210 mls/hr IVPB Q12 [facility] Last Admin: 03/01/17 09:00 Dose: 210 mls/hr Cefazolin Sodium/Dextrose (Ancef Iv 2 Gm Duplex) 2 gm in 50 mls @ 50 mls/hr IVPB Q8 [facility] Last Admin: 03/01/17 09:00 Dose: 50 mls/hr Lactobacillus Acidophilus (Bacid Acidophilus) 1 cap PO BID [facility] Last Admin: 03/01/17 09:01 Dose: 1 cap Loperamide HCl (Imodium) 2 mg PO QID PRN PRN Reason: Diarrhea Last Admin: 03/01/17 12:20 Dose: 2 mg Magnesium Oxide (Mag-Ox) 400 mg PO BID [facility] Last Admin: 03/01/17 09:01 Dose: 400 mg Metoprolol Tartrate (Lopressor) 25 mg PO Q12 [facility] Last Admin: 03/01/17 09:02 Dose: 25 mg Nystatin (Nystop Topical Powder) 1 applic TOP TID [facility] Last Admin: 03/01/17 12:20 Dose: 1 applic Pantoprazole Sodium (Protonix Ec Tab) 40 mg PO DAILY [facility] Last Admin: 03/01/17 09:02 Dose: 40 mg Potassium Chloride (K-Dur 20 Meq Er Tab) 20 meq PO BID [facility] Last Admin: 03/01/17 09:03 Dose: 20 meq - Labs Labs: 03/01/17 05:30 03/01/17 05:30 PT 15.9 Seconds (9.8-13.1) H 02/24/17 10:30 INR 1.4 (0.9-1.2) H 02/24/17 10:30 APTT 28.5 Seconds (25.6-37.1) 02/24/17 10:30
--- NOTE | 2017-03-01 14:00 | CP.PCM.PN ---
Subjective - Date & Time of Evaluation Date of Evaluation: 03/01/17 Time of Evaluation: 08:00 - Subjective Subjective: EVENTS NOTED IV RX IN PROGRESS Objective - Vital Signs/Intake and Output Vital Signs (last 24 hours): Temp Pulse Resp BP Pulse Ox 97.6 F 69 20 144/77 95 03/01/17 12:52 03/01/17 12:52 03/01/17 12:52 03/01/17 12:52 03/01/17 12:52 - Medications Medications: Current Medications Acetaminophen (Tylenol 325mg Tab) 650 mg PO Q6 PRN PRN Reason: Fever >100.4 F Acetaminophen (Tylenol 325mg Tab) 650 mg PO Q4 PRN PRN Reason: Pain, Mild (1-3) Last Admin: 02/25/17 12:39 Dose: 650 mg Camphor/Menthol (Bengay) 1 applic TOP QID PRN PRN Reason: Muscle spasm Dexamethasone (Decadron Inj) 4 mg IVP Q8H [facility] Last Admin: 03/01/17 12:19 Dose: 4 mg Ferrous Sulfate (Feosol) 325 mg PO BID [facility] Last Admin: 03/01/17 09:01 Dose: 325 mg Sodium Chloride (Sodium Chloride 0.9%) 500 mls @ 100 mls/hr IV .Q5H [facility] Last Admin: 02/28/17 20:52 Dose: 100 mls/hr Levetiracetam 500 mg/ Sodium (Chloride) 105 mls @ 210 mls/hr IVPB Q12 [facility] Last Admin: 03/01/17 09:00 Dose: 210 mls/hr Cefazolin Sodium/Dextrose (Ancef Iv 2 Gm Duplex) 2 gm in 50 mls @ 50 mls/hr IVPB Q8 [facility] Last Admin: 03/01/17 09:00 Dose: 50 mls/hr Lactobacillus Acidophilus (Bacid Acidophilus) 1 cap PO BID [facility] Last Admin: 03/01/17 09:01 Dose: 1 cap Loperamide HCl (Imodium) 2 mg PO QID PRN PRN Reason: Diarrhea Last Admin: 03/01/17 12:20 Dose: 2 mg Magnesium Oxide (Mag-Ox) 400 mg PO BID [facility] Last Admin: 03/01/17 09:01 Dose: 400 mg Metoprolol Tartrate (Lopressor) 25 mg PO Q12 [facility] Last Admin: 03/01/17 09:02 Dose: 25 mg Nystatin (Nystop Topical Powder) 1 applic TOP TID [facility] Last Admin: 03/01/17 12:20 Dose: 1 applic Pantoprazole Sodium (Protonix Ec Tab) 40 mg PO DAILY [facility] Last Admin: 03/01/17 09:02 Dose: 40 mg Potassium Chloride (K-Dur 20 Meq Er Tab) 20 meq PO BID [facility] Last Admin: 03/01/17 09:03 Dose: 20 meq - Labs Labs: 03/01/17 05:30 03/01/17 05:30 PT 15.9 Seconds (9.8-13.1) H 02/24/17 10:30 INR 1.4 (0.9-1.2) H 02/24/17 10:30 APTT 28.5 Seconds (25.6-37.1) 02/24/17 10:30 - Constitutional Appears: Non-toxic, Chronically Ill - Head Exam Head Exam: NORMOCEPHALIC - Eye Exam Eye Exam: PERRL. absent: Scleral icterus - ENT Exam ENT Exam: Mucous Membranes Dry - Neck Exam Neck Exam: absent: Lymphadenopathy - Respiratory Exam Respiratory Exam: Decreased Breath Sounds, Clear to Ausculation Bilateral - Cardiovascular Exam Cardiovascular Exam: REGULAR RHYTHM - GI/Abdominal Exam GI & Abdominal Exam: Distended, Soft - Rectal Exam Rectal Exam: Deferred - Exam Exam: NORMAL INSPECTION - Extremities Exam Extremities Exam: absent: Pedal Edema - Back Exam Back Exam: absent: CVA tenderness (L), CVA tenderness (R) - Neurological Exam Neurological Exam: Alert, Altered, Awake - Psychiatric Exam Psychiatric exam: Depressed Assessment and Plan (1) CVA (cerebral vascular accident) Status: Acute (2) Metastatic cancer Status: Acute (3) Cellulitis Status: Acute (4) Chemotherapy-induced diarrhea Status: Acute (5) Knee effusion, left Status: Acute
[2017-03-02] MEDS: ceFAZolin IV 2 gm in Dextrose 2 GM/50 ML BAG IVPB SCH ×3 (00:54→18:19)
[2017-03-02] MEDS: Sodium Chloride 0.9% 500 ML IV SCH ×8 (00:55→20:24)
[2017-03-02] MEDS: Dexamethasone 4 mg/1 ml IVP SCH ×3 (03:36→20:25)
[2017-03-02] MEDS: levETIRAcetam 500 MG in Sodium Chloride 0.9% 100 ML IVPB SCH ×2 (10:20→20:22)
[2017-03-02] MEDS: Potassium Chloride 20 mEq ER Tab PO SCH (10:23)
[2017-03-02] MEDS: Pantoprazole 40 mg EC Tab PO SCH (10:23)
[2017-03-02] MEDS: Magnesium Oxide 400 mg Tab UD PO SCH ×2 (10:34→18:21)
[2017-03-02] MEDS: Lactobacillus Acidophilus 500 MU Cap PO SCH ×2 (10:43→18:19)
--- NOTE | 2017-03-02 11:12 | CP.PCM.PN ---
Subjective - Date & Time of Evaluation Date of Evaluation: 03/02/17 Time of Evaluation: 11:12 - Subjective Subjective: The patient was seen in his room after returning from radiation therapy. He does appear to interact more than previously and his comprehension appears slightly improved as well. He is unable to follow simple commands. He moves all 4 extremities. The neck is supple and trachea is midline. Breath sounds are present bilaterally although markedly diminished at the left. No audible wheezing or rales. No bronchial breathing or egophony. Heart sounds are distant and rhythm is regular. The left knee is warm to touch and slightly more erythematous today. His former is at the bedside today and is concerned for his overall well- being. She has many questions about his current illness and his prognosis. Objective - Vital Signs/Intake and Output Vital Signs (last 24 hours): Temp Pulse Resp BP Pulse Ox 98.3 F 82 18 151/77 H 97 03/02/17 08:22 03/02/17 10:34 03/02/17 08:22 03/02/17 10:34 03/02/17 08:22 Intake and Output: 03/01/17 03/02/17 23:59 11:59 Intake Total 2300 Output Total 0 Balance 2300 - Medications Medications: Current Medications Acetaminophen (Tylenol 325mg Tab) 650 mg PO Q6 PRN PRN Reason: Fever >100.4 F Acetaminophen (Tylenol 325mg Tab) 650 mg PO Q4 PRN PRN Reason: Pain, Mild (1-3) Last Admin: 02/25/17 12:39 Dose: 650 mg Camphor/Menthol (Bengay) 1 applic TOP QID PRN PRN Reason: Muscle spasm Dexamethasone (Decadron Inj) 4 mg IVP Q8H [facility] Last Admin: 03/02/17 03:36 Dose: 4 mg Ferrous Sulfate (Feosol) 325 mg PO BID [facility] Last Admin: 03/02/17 10:22 Dose: 325 mg Sodium Chloride (Sodium Chloride 0.9%) 500 mls @ 100 mls/hr IV .Q5H [facility] Last Admin: 03/02/17 10:36 Dose: 100 mls/hr Levetiracetam 500 mg/ Sodium (Chloride) 105 mls @ 210 mls/hr IVPB Q12 [facility] Last Admin: 03/02/17 10:20 Dose: 210 mls/hr Cefazolin Sodium/Dextrose (Ancef Iv 2 Gm Duplex) 2 gm in 50 mls @ 50 mls/hr IVPB Q8 [facility] Last Admin: 03/02/17 10:21 Dose: 50 mls/hr Lactobacillus Acidophilus (Bacid Acidophilus) 1 cap PO BID [facility] Last Admin: 03/02/17 10:43 Dose: 1 cap Loperamide HCl (Imodium) 2 mg PO QID PRN PRN Reason: Diarrhea Last Admin: 03/01/17 12:20 Dose: 2 mg Magnesium Oxide (Mag-Ox) 400 mg PO BID [facility] Last Admin: 03/02/17 10:34 Dose: 400 mg Megestrol Acetate (Megace) 400 mg PO DAILY [facility] Metoprolol Tartrate (Lopressor) 25 mg PO Q12 [facility] Last Admin: 03/02/17 10:34 Dose: 25 mg Nystatin (Nystop Topical Powder) 1 applic TOP TID [facility] Last Admin: 03/02/17 10:22 Dose: 1 applic Pantoprazole Sodium (Protonix Ec Tab) 40 mg PO DAILY [facility] Last Admin: 03/02/17 10:23 Dose: 40 mg Potassium Phos/Sodium Phos (Neutra-Phos) 1 pkt PO DAILY [facility] - Labs Labs: 03/01/17 05:30 03/01/17 05:30 PT 15.9 Seconds (9.8-13.1) H 02/24/17 10:30 INR 1.4 (0.9-1.2) H 02/24/17 10:30 APTT 28.5 Seconds (25.6-37.1) 02/24/17 10:30
[2017-03-02] MEDS ORDERED: DiphenhydrAMINE 50 mg/ml Inj IVP STA ×2 (12:01→12:18)
[2017-03-02] MEDS ORDERED: CISPLATIN IV ONE ×2 (12:02→13:00)
[2017-03-02] MEDS ORDERED: SODIUM CHLORIDE 0.9% IV ONE ×2 (12:02→13:00)
--- NOTE | 2017-03-02 12:27 | CP.PCM.PN ---
Subjective - Date & Time of Evaluation Date of Evaluation: 03/02/17 Time of Evaluation: 11:00 - Subjective Subjective: Patient seen and examined at bedside. He is more awake today. Family member at bedside. No acute events as per nursing staff. Patient still not eating well today; will add appetite stimulant. Went to radiation therapy earlier this morning. Objective - Vital Signs/Intake and Output Vital Signs (last 24 hours): Temp Pulse Resp BP Pulse Ox 98.3 F 82 18 151/77 H 97 03/02/17 08:22 03/02/17 10:34 03/02/17 08:22 03/02/17 10:34 03/02/17 08:22 Intake and Output: 03/02/17 03/02/17 06:59 18:59 Intake Total 2300 Output Total 0 Balance 2300 - Medications Medications: Current Medications Acetaminophen (Tylenol 325mg Tab) 650 mg PO Q6 PRN PRN Reason: Fever >100.4 F Acetaminophen (Tylenol 325mg Tab) 650 mg PO Q4 PRN PRN Reason: Pain, Mild (1-3) Last Admin: 02/25/17 12:39 Dose: 650 mg Camphor/Menthol (Bengay) 1 applic TOP QID PRN PRN Reason: Muscle spasm Dexamethasone (Decadron Inj) 4 mg IVP Q8H [facility] Last Admin: 03/02/17 03:36 Dose: 4 mg Ferrous Sulfate (Feosol) 325 mg PO BID [facility] Last Admin: 03/02/17 10:22 Dose: 325 mg Sodium Chloride (Sodium Chloride 0.9%) 500 mls @ 100 mls/hr IV .Q5H [facility] Last Admin: 03/02/17 10:36 Dose: 100 mls/hr Levetiracetam 500 mg/ Sodium (Chloride) 105 mls @ 210 mls/hr IVPB Q12 [facility] Last Admin: 03/02/17 10:20 Dose: 210 mls/hr Cefazolin Sodium/Dextrose (Ancef Iv 2 Gm Duplex) 2 gm in 50 mls @ 50 mls/hr IVPB Q8 [facility] Last Admin: 03/02/17 10:21 Dose: 50 mls/hr Cisplatin 110 mg/ Sodium (Chloride) 610 mls @ 0 mls/hr IV ONCE ONE PRN Reason: As Directed Stop: 03/02/17 12:03 Sodium Chloride (Sodium Chloride 0.9%) 500 mls @ 125 mls/hr IV .Q4H [facility] Etoposide 140 mg/ Sodium (Chloride) 507 mls @ 0 mls/hr IV ONCE ONE PRN Reason: As Directed Stop: 03/02/17 12:04 Ondansetron HCl 16 mg/ Sodium (Chloride) 58 mls @ 116 mls/hr IVPB ONCE ONE Stop: 03/02/17 12:59 Lactobacillus Acidophilus (Bacid Acidophilus) 1 cap PO BID [facility] Last Admin: 03/02/17 10:43 Dose: 1 cap Loperamide HCl (Imodium) 2 mg PO QID PRN PRN Reason: Diarrhea Last Admin: 03/01/17 12:20 Dose: 2 mg Magnesium Oxide (Mag-Ox) 400 mg PO BID [facility] Last Admin: 03/02/17 10:34 Dose: 400 mg Megestrol Acetate (Megace) 400 mg PO DAILY [facility] Metoprolol Tartrate (Lopressor) 25 mg PO Q12 [facility] Last Admin: 03/02/17 10:34 Dose: 25 mg Nystatin (Nystop Topical Powder) 1 applic TOP TID [facility] Last Admin: 03/02/17 10:22 Dose: 1 applic Pantoprazole Sodium (Protonix Ec Tab) 40 mg PO DAILY [facility] Last Admin: 03/02/17 10:23 Dose: 40 mg Potassium Phos/Sodium Phos (Neutra-Phos) 1 pkt PO DAILY [facility] - Labs Labs: 03/01/17 05:30 03/01/17 05:30 PT 15.9 Seconds (9.8-13.1) H 02/24/17 10:30 INR 1.4 (0.9-1.2) H 02/24/17 10:30 APTT 28.5 Seconds (25.6-37.1) 02/24/17 10:30 - Additional Findings Additional findings: Physical exam: Constitutional- cooperative, awake, alert, confused Head- NCAT, PERRL Eye- PERRL, normal accommodation ENT- normal exam, MMM. 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 CT of head showed : 1.3 x 1.6 cm lesion in the left posterior parietal lobe with surrounding vasogenic edema is most compatible with mucinous/ cellular/ hemorrhagic metastatic deposit with patient's history of lung cancer. No evidence of midline shift or herniation. 1. Metastatic Brain Lesion Pt presented with aphasia , found to have Metastatic brain lesion on Ct of head Neurology consulted- discussed case with Dr Tomas hamilton to start Decadron for edema and Keppra for seizure proph Discussed with Oncology - Dr Desmond martin Radiotherapy Radiation therapy performed by Dr Taylor in [facility] Oncology PT,OT ,Speech therapy aphasia still persistent, discussed with dr Donny hoyt - increased Decadron to 4 mg q8 2. Ra[place] Cell Cancer with metastasis to lung Consult with Dr Hoyt Oncologist last chemo 02/10 plan for another chemo cycle on Friday 03/02 Radiotx for brain mets 3. Anemia and Thrombocytopenia sec to Chemotherapy Neutropenia resolved, received Granix was transfused 2 units PRBC on 02/24 Dr Hoyt Hemotologist on consult 3. Hypomagnesemia - 1.3-->1.1 - Continue Magox 400 mg po BID - Check phosphorus and Magnesium tomorrow morning - Added Neutra-phos 4. History of Septic arthritis Left knee. cont Ancef IV q8 previous cultures from Left knee: MSSA Consult ID Dr Rivera Physical therapy 5. 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 DVT Prophylaxis SCD No anticoag due to low platelet 7. Failure to thrive Continue Ensure Encourage po intake as much as possible Added Megace Overall, prognosis is poor Patient may be candidate for hospice moving forward
[2017-03-02] MEDS ORDERED: APREPITANT 125 MG CAP PO ONE (12:30)
[2017-03-02] MEDS: Megestrol Acetate 40 mg/ml Cup PO SCH (13:00)
[2017-03-02] MEDS ORDERED: Sodium Chloride 0.9% 500 ML IV SCH (13:00)
--- NOTE | 2017-03-02 13:24 | CP.PCM.PN ---
Subjective - Date & Time of Evaluation Date of Evaluation: 03/02/17 Time of Evaluation: 10:00 - Subjective Subjective: while making rounds yesterday I was approached by pt's asking why patient was still on IV antibiotcs I explained the rationale for treatment and asked nurse to contact dr Del Angel"s [employer] for follow up in this regard family now refusing any further ID involvement in the case Objective - Vital Signs/Intake and Output Vital Signs (last 24 hours): Temp Pulse Resp BP Pulse Ox 97.3 F L 71 18 161/87 H 99 03/02/17 12:28 03/02/17 12:28 03/02/17 12:28 03/02/17 12:28 03/02/17 12:28 Intake and Output: 03/02/17 03/02/17 06:59 18:59 Intake Total 2300 Output Total 0 Balance 2300 - Medications Medications: Current Medications Acetaminophen (Tylenol 325mg Tab) 650 mg PO Q6 PRN PRN Reason: Fever >100.4 F Acetaminophen (Tylenol 325mg Tab) 650 mg PO Q4 PRN PRN Reason: Pain, Mild (1-3) Last Admin: 02/25/17 12:39 Dose: 650 mg Camphor/Menthol (Bengay) 1 applic TOP QID PRN PRN Reason: Muscle spasm Dexamethasone (Decadron Inj) 4 mg IVP Q8H [facility] Last Admin: 03/02/17 12:48 Dose: 4 mg Ferrous Sulfate (Feosol) 325 mg PO BID [facility] Last Admin: 03/02/17 10:22 Dose: 325 mg Sodium Chloride (Sodium Chloride 0.9%) 500 mls @ 100 mls/hr IV .Q5H [facility] Last Admin: 03/02/17 10:36 Dose: 100 mls/hr Levetiracetam 500 mg/ Sodium (Chloride) 105 mls @ 210 mls/hr IVPB Q12 [facility] Last Admin: 03/02/17 10:20 Dose: 210 mls/hr Cefazolin Sodium/Dextrose (Ancef Iv 2 Gm Duplex) 2 gm in 50 mls @ 50 mls/hr IVPB Q8 [facility] Last Admin: 03/02/17 10:21 Dose: 50 mls/hr Sodium Chloride (Sodium Chloride 0.9%) 500 mls @ 125 mls/hr IV .Q4H [facility] Last Admin: 03/02/17 12:50 Dose: 125 mls/hr Etoposide 140 mg/ Sodium (Chloride) 507 mls @ 338 mls/hr IV ONCE ONE PRN Reason: As Directed Stop: 03/02/17 14:29 Cisplatin 110 mg/ Sodium (Chloride) 610 mls @ 406.667 mls/hr IV ONCE ONE PRN Reason: As Directed Stop: 03/02/17 14:29 Lactobacillus Acidophilus (Bacid Acidophilus) 1 cap PO BID [facility] Last Admin: 03/02/17 10:43 Dose: 1 cap Loperamide HCl (Imodium) 2 mg PO QID PRN PRN Reason: Diarrhea Last Admin: 03/01/17 12:20 Dose: 2 mg Magnesium Oxide (Mag-Ox) 400 mg PO BID [facility] Last Admin: 03/02/17 10:34 Dose: 400 mg Megestrol Acetate (Megace) 400 mg PO DAILY [facility] Metoprolol Tartrate (Lopressor) 25 mg PO Q12 [facility] Last Admin: 03/02/17 10:34 Dose: 25 mg Nystatin (Nystop Topical Powder) 1 applic TOP TID [facility] Last Admin: 03/02/17 10:22 Dose: 1 applic Pantoprazole Sodium (Protonix Ec Tab) 40 mg PO DAILY [facility] Last Admin: 03/02/17 10:23 Dose: 40 mg Potassium Phos/Sodium Phos (Neutra-Phos) 1 pkt PO DAILY [facility] - Labs Labs: 03/01/17 05:30 03/01/17 05:30 PT 15.9 Seconds (9.8-13.1) H 02/24/17 10:30 INR 1.4 (0.9-1.2) H 02/24/17 10:30 APTT 28.5 Seconds (25.6-37.1) 02/24/17 10:30 Assessment and Plan (1) CVA (cerebral vascular accident) Status: Acute (2) Metastatic cancer Status: Acute (3) Cellulitis Status: Acute (4) Chemotherapy-induced diarrhea Status: Acute (5) Knee effusion, left Status: Acute
--- NOTE | 2017-03-02 17:14 | CP.PCM.PN ---
Subjective - Date & Time of Evaluation Date of Evaluation: 03/02/17 Time of Evaluation: 17:11 - Subjective Subjective: Pt is still very confused , but he has told the that he wants his chemotherapy to continue.. He was given cisplatin and etoposide today.and tolerated it well. Objective - Vital Signs/Intake and Output Vital Signs (last 24 hours): Temp Pulse Resp BP Pulse Ox 98.2 F 80 20 153/90 H 95 03/02/17 16:00 03/02/17 16:00 03/02/17 16:00 03/02/17 16:00 03/02/17 16:00 Intake and Output: 03/02/17 03/02/17 06:59 18:59 Intake Total 2300 Output Total 0 Balance 2300 - Medications Medications: Current Medications Acetaminophen (Tylenol 325mg Tab) 650 mg PO Q6 PRN PRN Reason: Fever >100.4 F Acetaminophen (Tylenol 325mg Tab) 650 mg PO Q4 PRN PRN Reason: Pain, Mild (1-3) Last Admin: 02/25/17 12:39 Dose: 650 mg Camphor/Menthol (Bengay) 1 applic TOP QID PRN PRN Reason: Muscle spasm Dexamethasone (Decadron Inj) 4 mg IVP Q8H [facility] Last Admin: 03/02/17 12:48 Dose: 4 mg Ferrous Sulfate (Feosol) 325 mg PO BID [facility] Last Admin: 03/02/17 10:22 Dose: 325 mg Sodium Chloride (Sodium Chloride 0.9%) 500 mls @ 100 mls/hr IV .Q5H [facility] Last Admin: 03/02/17 10:36 Dose: 100 mls/hr Levetiracetam 500 mg/ Sodium (Chloride) 105 mls @ 210 mls/hr IVPB Q12 [facility] Last Admin: 03/02/17 10:20 Dose: 210 mls/hr Cefazolin Sodium/Dextrose (Ancef Iv 2 Gm Duplex) 2 gm in 50 mls @ 50 mls/hr IVPB Q8 [facility] Last Admin: 03/02/17 10:21 Dose: 50 mls/hr Sodium Chloride (Sodium Chloride 0.9%) 500 mls @ 125 mls/hr IV .Q4H [facility] Last Admin: 03/02/17 16:06 Dose: 125 mls/hr Lactobacillus Acidophilus (Bacid Acidophilus) 1 cap PO BID [facility] Last Admin: 03/02/17 10:43 Dose: 1 cap Loperamide HCl (Imodium) 2 mg PO QID PRN PRN Reason: Diarrhea Last Admin: 03/01/17 12:20 Dose: 2 mg Magnesium Oxide (Mag-Ox) 400 mg PO BID [facility] Last Admin: 03/02/17 10:34 Dose: 400 mg Megestrol Acetate (Megace) 400 mg PO DAILY [facility] Last Admin: 03/02/17 13:00 Dose: 400 mg Metoprolol Tartrate (Lopressor) 25 mg PO Q12 [facility] Last Admin: 03/02/17 10:34 Dose: 25 mg Nystatin (Nystop Topical Powder) 1 applic TOP TID [facility] Last Admin: 03/02/17 13:01 Dose: 1 applic Pantoprazole Sodium (Protonix Ec Tab) 40 mg PO DAILY [facility] Last Admin: 03/02/17 10:23 Dose: 40 mg Potassium Phos/Sodium Phos (Neutra-Phos) 1 pkt PO DAILY [facility] - Labs Labs: 03/01/17 05:30 03/01/17 05:30 PT 15.9 Seconds (9.8-13.1) H 02/24/17 10:30 INR 1.4 (0.9-1.2) H 02/24/17 10:30 APTT 28.5 Seconds (25.6-37.1) 02/24/17 10:30
[2017-03-03] MEDS: Dextrose 5%/0.9% NS 1,000 ML IV SCH ×2 (00:19→16:58)
[2017-03-03] MEDS: ceFAZolin IV 2 gm in Dextrose 2 GM/50 ML BAG IVPB SCH ×3 (00:20→17:18)
[2017-03-03] MEDS: Dexamethasone 4 mg/1 ml IVP SCH ×3 (04:28→22:04)
[2017-03-03 06:02] LABS: HEMATOCRIT 25.7 % (35.0-51.0); MEAN CELL VOLUME 84.5 fl (80.0-94.0); MEAN CORPUSCULAR HEMOGLOBIN 27.8 pg (27.0-31.0); MEAN CORPUSCULAR HGB CONC 32.9 g/dL (33.0-37.0); RED CELL DISTRIBUTION WIDTH 22.3 % (11.5-14.5); WHITE BLOOD COUNT 16.2 K/uL (4.8-10.8)
[2017-03-03 06:09] LABS: BLOOD UREA NITROGEN 15 mg/dl (9-20); CALCIUM 9.7 mg/dL (8.4-10.2); CARBON DIOXIDE 25 mmol/L (22-30); CHLORIDE 108 mmol/L (98-107); GFR AFRICAN-AMERICAN > 60; GLUCOSE,RANDOM 123 mg/dL (75-110); MAGNESIUM 1.3 MG/DL (1.6-2.3); PHOSPHOROUS 3.9 mg/dl (2.5-4.5); POTASSIUM 4.3 MMOL/L (3.6-5.0); SODIUM 141 mmol/l (132-148)
--- NOTE | 2017-03-03 07:46 | CP.PCM.PN ---
Subjective - Date & Time of Evaluation Date of Evaluation: 03/03/17 Time of Evaluation: 07:46 - Subjective Subjective: patient seen and examined at bedside appears to be in good spirits. For chemotherapy today. Hemodynamically stable and in no acute distress. Objective - Vital Signs/Intake and Output Vital Signs (last 24 hours): Temp Pulse Resp BP Pulse Ox 97.4 F L 60 20 104/49 L 95 03/03/17 05:00 03/03/17 05:00 03/03/17 05:00 03/03/17 05:00 03/03/17 05:00 Physical exam: Constitutional- cooperative, awake, alert. Head- NCAT, PERRL Eye- PERRL, normal accommodation ENT- normal exam, MMM. Neck- normal inspection, supple, no JVD Respiratory- CTAB, no wheezes rales rhonchi Cardiovascular- RRR, +S1, +S2 no MRG GI/Abdominal- normal bowel sounds, soft, no mass, no hsm Skin- warm, dry Extremities Exam- normal capillary refill, normal inspection Neurological Exam- alert, awake Psych- normal mood, normal affect - Medications Medications: Current Medications Acetaminophen (Tylenol 325mg Tab) 650 mg PO Q6 PRN PRN Reason: Fever >100.4 F Acetaminophen (Tylenol 325mg Tab) 650 mg PO Q4 PRN PRN Reason: Pain, Mild (1-3) Last Admin: 02/25/17 12:39 Dose: 650 mg Camphor/Menthol (Bengay) 1 applic TOP QID PRN PRN Reason: Muscle spasm Dexamethasone (Decadron Inj) 4 mg IVP Q8H [facility] Last Admin: 03/03/17 04:28 Dose: 4 mg Ferrous Sulfate (Feosol) 325 mg PO BID [facility] Last Admin: 03/02/17 18:21 Dose: 325 mg Levetiracetam 500 mg/ Sodium (Chloride) 105 mls @ 210 mls/hr IVPB Q12 [facility] Last Admin: 03/02/17 20:22 Dose: 210 mls/hr Cefazolin Sodium/Dextrose (Ancef Iv 2 Gm Duplex) 2 gm in 50 mls @ 50 mls/hr IVPB Q8 [facility] Last Admin: 03/03/17 00:20 Dose: 50 mls/hr Dextrose/Sodium Chloride (Dextrose 5%/0.9% Ns 1000 Ml) 1,000 mls @ 75 mls/hr IV .[id number] [facility] Stop: 03/03/17 22:46 Last Admin: 03/03/17 00:19 Dose: 75 mls/hr Magnesium Sulfate 2 gm/ Sodium (Chloride) 104 mls @ 104 mls/hr IVPB ONCE ONE PRN Reason: 2 GM/HR Stop: 03/03/17 08:40 Lactobacillus Acidophilus (Bacid Acidophilus) 1 cap PO BID [facility] Last Admin: 03/02/17 18:19 Dose: 1 cap Loperamide HCl (Imodium) 2 mg PO QID PRN PRN Reason: Diarrhea Last Admin: 03/01/17 12:20 Dose: 2 mg Megestrol Acetate (Megace) 400 mg PO DAILY [facility] Last Admin: 03/02/17 13:00 Dose: 400 mg Metoprolol Tartrate (Lopressor) 25 mg PO Q12 [facility] Last Admin: 03/02/17 20:23 Dose: Not Given Nystatin (Nystop Topical Powder) 1 applic TOP TID [facility] Last Admin: 03/02/17 18:21 Dose: 1 applic Pantoprazole Sodium (Protonix Ec Tab) 40 mg PO DAILY [facility] Last Admin: 03/02/17 10:23 Dose: 40 mg Potassium Phos/Sodium Phos (Neutra-Phos) 1 pkt PO DAILY [facility] - Labs Labs: 03/03/17 04:25 03/03/17 04:25 PT 15.9 Seconds (9.8-13.1) H 02/24/17 10:30 INR 1.4 (0.9-1.2) H 02/24/17 10:30 APTT 28.5 Seconds (25.6-37.1) 02/24/17 10:30 Assessment and Plan - Assessment and Plan (Free Text) Plan: 76 year old male with hx of [place] 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 CT of head showed : 1.3 x 1.6 cm lesion in the left posterior parietal lobe with surrounding vasogenic edema is most compatible with mucinous/ cellular/ hemorrhagic metastatic deposit with patient's history of lung cancer. No evidence of midline shift or herniation. 1. Metastatic Brain Lesion Pt presented with aphasia , found to have Metastatic brain lesion on Ct of head Neurology consulted- discussed case with Dr Shine- joy to start Decadron for edema and Keppra for seizure proph Discussed with Oncology - Dr Hoyt -joy Radiotherapy Radiation therapy performed by Dr Taylor in [facility] Oncology PT,OT ,Speech therapy aphasia still persistent, discussed with dr Donny hoyt - increased Decadron to 4 mg q8 2. [place] Cell Cancer with metastasis to lung Consult with Dr Hoyt Oncologist last chemo 02/10 chemotherapy today Radiotx for brain mets 3. Anemia and Thrombocytopenia sec to Chemotherapy Neutropenia resolved, received Granix was transfused 2 units PRBC on 02/24 Dr Hoyt Hemotologist on consult 3. Hypomagnesemia - 1.3-->1.1 - Continue Magox 400 mg po BID, switch to IV and recheck - Check phosphorus and Magnesium tomorrow morning - Added Neutra-phos 4. History of Septic arthritis Left knee. cont Ancef IV q8 previous cultures from Left knee: MSSA Consult ID Dr Rivera, patient daughter no longer wishes and ID consult Physical therapy 5. 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 DVT Prophylaxis SCD No anticoag due to low platelet 7. Failure to thrive Continue Ensure Encourage po intake as much as possible Added Megace Overall, prognosis is poor Patient may be candidate for hospice moving forward
[2017-03-03] MEDS ORDERED: Magnesium Sulfate 2 GM in Sodium Chloride 0.9% 100 ML IVPB ONE (08:00)
[2017-03-03] MEDS ORDERED: Magnesium Sulfate 2 gm/50 ml 2 GM/50 ML BAG IVPB ONE (08:15)
[2017-03-03] MEDS ORDERED: APREPITANT 80 MG CAP PO ONE ×2 (09:45→10:30)
[2017-03-03] MEDS ORDERED: DiphenhydrAMINE 50 mg/ml Inj IVP ONE (10:00)
[2017-03-03] MEDS: Pantoprazole 40 mg EC Tab PO SCH (10:43)
[2017-03-03] MEDS: Lactobacillus Acidophilus 500 MU Cap PO SCH ×2 (10:45→17:18)
[2017-03-03] MEDS: Potassium & Sodium Phosphate PO SCH (10:46)
--- NOTE | 2017-03-03 10:53 | CP.PCM.PN ---
Subjective - Date & Time of Evaluation Date of Evaluation: 03/03/17 Time of Evaluation: 09:00 - Subjective Subjective: The patient was seen on rounds in his room on telemetry. He appears comfortable and is easily arousable. He appears to have improving comprehension and his speech is somewhat more directed towards answering the questions appropriately, but he is unable to follow simple commands. He has been started back on chemotherapy and continues to receive radiation as well. The breath sounds are present but diminished bilaterally especially at the left base. RR no audible rales or wheezes heard. No bronchial breathing or egophony. He'll continue on his current medical regimen with chemotherapy as well as radiation for the present time. Family members have risk question about continued use of antibiotics, but these would be necessary because of the positive culture from the left knee joint. Objective - Vital Signs/Intake and Output Vital Signs (last 24 hours): Temp Pulse Resp BP Pulse Ox 98.3 F 72 20 140/66 99 03/03/17 08:00 03/03/17 10:44 03/03/17 08:00 03/03/17 10:44 03/03/17 08:00 Intake and Output: 03/02/17 03/03/17 23:59 11:59 Intake Total 3100 Output Total 0 Balance 3100 - Medications Medications: Current Medications Acetaminophen (Tylenol 325mg Tab) 650 mg PO Q6 PRN PRN Reason: Fever >100.4 F Acetaminophen (Tylenol 325mg Tab) 650 mg PO Q4 PRN PRN Reason: Pain, Mild (1-3) Last Admin: 02/25/17 12:39 Dose: 650 mg Camphor/Menthol (Bengay) 1 applic TOP QID PRN PRN Reason: Muscle spasm Dexamethasone (Decadron Inj) 4 mg IVP Q8H [facility] Last Admin: 03/03/17 04:28 Dose: 4 mg Ferrous Sulfate (Feosol) 325 mg PO BID [facility] Last Admin: 03/03/17 10:43 Dose: 325 mg Levetiracetam 500 mg/ Sodium (Chloride) 105 mls @ 210 mls/hr IVPB Q12 [facility] Last Admin: 03/02/17 20:22 Dose: 210 mls/hr Cefazolin Sodium/Dextrose (Ancef Iv 2 Gm Duplex) 2 gm in 50 mls @ 50 mls/hr IVPB Q8 [facility] Last Admin: 03/03/17 10:41 Dose: Not Given Dextrose/Sodium Chloride (Dextrose 5%/0.9% Ns 1000 Ml) 1,000 mls @ 75 mls/hr IV .[id number] [facility] Stop: 03/03/17 22:46 Last Admin: 03/03/17 00:19 Dose: 75 mls/hr Sodium Chloride (Sodium Chloride 0.9%) 500 mls @ 100 mls/hr IV .Q5H [facility] Etoposide 140 mg/ Sodium (Chloride) 507 mls @ 0 mls/hr IV ONCE ONE PRN Reason: As Directed Stop: 03/03/17 08:01 Lactobacillus Acidophilus (Bacid Acidophilus) 1 cap PO BID [facility] Last Admin: 03/03/17 10:45 Dose: Not Given Loperamide HCl (Imodium) 2 mg PO QID PRN PRN Reason: Diarrhea Last Admin: 03/01/17 12:20 Dose: 2 mg Megestrol Acetate (Megace) 400 mg PO DAILY [facility] Last Admin: 03/02/17 13:00 Dose: 400 mg Metoprolol Tartrate (Lopressor) 25 mg PO Q12 [facility] Last Admin: 03/03/17 10:44 Dose: 25 mg Nystatin (Nystop Topical Powder) 1 applic TOP TID [facility] Last Admin: 03/03/17 10:46 Dose: 1 applic Pantoprazole Sodium (Protonix Ec Tab) 40 mg PO DAILY [facility] Last Admin: 03/03/17 10:43 Dose: 40 mg Potassium Phos/Sodium Phos (Neutra-Phos) 1 pkt PO DAILY [facility] Last Admin: 03/03/17 10:46 Dose: 1 pkt - Labs Labs: 03/03/17 04:25 03/03/17 04:25 PT 15.9 Seconds (9.8-13.1) H 02/24/17 10:30 INR 1.4 (0.9-1.2) H 02/24/17 10:30 APTT 28.5 Seconds (25.6-37.1) 02/24/17 10:30
[2017-03-03] MEDS: Megestrol Acetate 40 mg/ml Cup PO SCH (11:28)
--- NOTE | 2017-03-03 11:32 | CP.PCM.PN ---
Subjective - Date & Time of Evaluation Date of Evaluation: 03/03/17 Time of Evaluation: 11:30 - Subjective Subjective: Pt is confused but is otherwise doing well. Will give his 2nd dose of etoposide today. Objective - Vital Signs/Intake and Output Vital Signs (last 24 hours): Temp Pulse Resp BP Pulse Ox 98.3 F 72 20 140/66 99 03/03/17 08:00 03/03/17 10:44 03/03/17 08:00 03/03/17 10:44 03/03/17 08:00 - Medications Medications: Current Medications Acetaminophen (Tylenol 325mg Tab) 650 mg PO Q6 PRN PRN Reason: Fever >100.4 F Acetaminophen (Tylenol 325mg Tab) 650 mg PO Q4 PRN PRN Reason: Pain, Mild (1-3) Last Admin: 02/25/17 12:39 Dose: 650 mg Camphor/Menthol (Bengay) 1 applic TOP QID PRN PRN Reason: Muscle spasm Dexamethasone (Decadron Inj) 4 mg IVP Q8H [facility] Last Admin: 03/03/17 04:28 Dose: 4 mg Ferrous Sulfate (Feosol) 325 mg PO BID [facility] Last Admin: 03/03/17 10:43 Dose: 325 mg Levetiracetam 500 mg/ Sodium (Chloride) 105 mls @ 210 mls/hr IVPB Q12 [facility] Last Admin: 03/02/17 20:22 Dose: 210 mls/hr Cefazolin Sodium/Dextrose (Ancef Iv 2 Gm Duplex) 2 gm in 50 mls @ 50 mls/hr IVPB Q8 [facility] Last Admin: 03/03/17 10:41 Dose: Not Given Dextrose/Sodium Chloride (Dextrose 5%/0.9% Ns 1000 Ml) 1,000 mls @ 75 mls/hr IV .[id number] [facility] Stop: 03/03/17 22:46 Last Admin: 03/03/17 00:19 Dose: 75 mls/hr Sodium Chloride (Sodium Chloride 0.9%) 500 mls @ 100 mls/hr IV .Q5H [facility] Etoposide 140 mg/ Sodium (Chloride) 507 mls @ 0 mls/hr IV ONCE ONE PRN Reason: As Directed Stop: 03/03/17 08:01 Lactobacillus Acidophilus (Bacid Acidophilus) 1 cap PO BID [facility] Last Admin: 03/03/17 10:45 Dose: Not Given Loperamide HCl (Imodium) 2 mg PO QID PRN PRN Reason: Diarrhea Last Admin: 03/01/17 12:20 Dose: 2 mg Megestrol Acetate (Megace) 400 mg PO DAILY [facility] Last Admin: 03/02/17 13:00 Dose: 400 mg Metoprolol Tartrate (Lopressor) 25 mg PO Q12 [facility] Last Admin: 03/03/17 10:44 Dose: 25 mg Nystatin (Nystop Topical Powder) 1 applic TOP TID [facility] Last Admin: 03/03/17 10:46 Dose: 1 applic Pantoprazole Sodium (Protonix Ec Tab) 40 mg PO DAILY [facility] Last Admin: 03/03/17 10:43 Dose: 40 mg Potassium Phos/Sodium Phos (Neutra-Phos) 1 pkt PO DAILY [facility] Last Admin: 03/03/17 10:46 Dose: 1 pkt - Labs Labs: 03/03/17 04:25 03/03/17 04:25 PT 15.9 Seconds (9.8-13.1) H 02/24/17 10:30 INR 1.4 (0.9-1.2) H 02/24/17 10:30 APTT 28.5 Seconds (25.6-37.1) 02/24/17 10:30
[2017-03-03] MEDS: levETIRAcetam 500 MG in Sodium Chloride 0.9% 100 ML IVPB SCH ×2 (12:06→20:47)
[2017-03-03] MEDS: Sodium Chloride 0.9% 500 ML IV SCH ×3 (13:30→23:57)
[2017-03-04] MEDS: ceFAZolin IV 2 gm in Dextrose 2 GM/50 ML BAG IVPB SCH ×3 (01:25→22:10)
[2017-03-04] MEDS: Dexamethasone 4 mg/1 ml IVP SCH ×4 (04:27→22:50)
[2017-03-04] MEDS: Sodium Chloride 0.9% 500 ML IV SCH ×4 (04:28→20:36)
[2017-03-04 05:57] LABS: BASO % 0.2 % (0.0-2.0); HEMATOCRIT 26.6 % (35.0-51.0); LYMPH # 0.7 K/uL (1.0-4.3); LYMPH % 4.4 % (20.0-40.0); MEAN CORPUSCULAR HEMOGLOBIN 27.5 pg (27.0-31.0); MEAN CORPUSCULAR HGB CONC 32.3 g/dL (33.0-37.0); MEAN PLATELET VOLUME 7.8 fl (7.2-11.7); MONO # 0.6 K/uL (0.0-0.8); NEUT # 14.3 K/uL (1.8-7.0); NEUT % 91.4 % (50.0-75.0); PLATELET COUNT 326 K/uL (130-400); RED CELL DISTRIBUTION WIDTH 22.4 % (11.5-14.5); WHITE BLOOD COUNT 15.6 K/uL (4.8-10.8)
[2017-03-04 06:27] LABS: BLOOD UREA NITROGEN 23 mg/dl (9-20); CALCIUM 9.7 mg/dL (8.4-10.2); CARBON DIOXIDE 23 mmol/L (22-30); GFR AFRICAN-AMERICAN > 60; GLUCOSE,RANDOM 114 mg/dL (75-110); MAGNESIUM 1.4 MG/DL (1.6-2.3); POTASSIUM 4.2 MMOL/L (3.6-5.0); SODIUM 140 mmol/l (132-148)
[2017-03-04] MEDS: Lactobacillus Acidophilus 500 MU Cap PO SCH ×2 (08:19→16:56)
[2017-03-04] MEDS ORDERED: DiphenhydrAMINE 50 mg/ml Inj IVP ONE (09:00)
[2017-03-04] MEDS ORDERED: Sodium Chloride 0.9% 500 ML IV SCH (09:00)
[2017-03-04] MEDS ORDERED: APREPITANT 80 MG CAP PO ONE (09:00)
--- NOTE | 2017-03-04 09:43 | CP.PCM.PN ---
Subjective - Date & Time of Evaluation Date of Evaluation: 03/04/17 Time of Evaluation: 09:38 - Subjective Subjective: Pt will receive his 3rd dose of chemotherapy today after he comes back from RT. He has tolersted it well so far. Will monitor CBC Objective - Vital Signs/Intake and Output Vital Signs (last 24 hours): Temp Pulse Resp BP Pulse Ox 98.1 F 79 20 150/78 97 03/04/17 07:49 03/04/17 08:20 03/04/17 07:49 03/04/17 08:20 03/04/17 07:49 - Medications Medications: Current Medications Acetaminophen (Tylenol 325mg Tab) 650 mg PO Q6 PRN PRN Reason: Fever >100.4 F Acetaminophen (Tylenol 325mg Tab) 650 mg PO Q4 PRN PRN Reason: Pain, Mild (1-3) Last Admin: 03/03/17 20:52 Dose: 650 mg Camphor/Menthol (Bengay) 1 applic TOP QID PRN PRN Reason: Muscle spasm Last Admin: 03/03/17 20:49 Dose: 1 applic Dexamethasone (Decadron Inj) 4 mg IVP Q8H [facility] Last Admin: 03/04/17 04:27 Dose: 4 mg Ferrous Sulfate (Feosol) 325 mg PO BID [facility] Last Admin: 03/03/17 17:18 Dose: Not Given Levetiracetam 500 mg/ Sodium (Chloride) 105 mls @ 210 mls/hr IVPB Q12 [facility] Last Admin: 03/03/17 20:47 Dose: 210 mls/hr Cefazolin Sodium/Dextrose (Ancef Iv 2 Gm Duplex) 2 gm in 50 mls @ 50 mls/hr IVPB Q8 [facility] Last Admin: 03/04/17 01:25 Dose: 50 mls/hr Sodium Chloride (Sodium Chloride 0.9%) 500 mls @ 100 mls/hr IV .Q5H [facility] Last Admin: 03/04/17 04:28 Dose: 100 mls/hr Sodium Chloride (Sodium Chloride 0.9%) 500 mls @ 100 mls/hr IV .Q5H [facility] Stop: 03/04/17 13:59 Etoposide 140 mg/ Sodium (Chloride) 507 mls @ 0 mls/hr IV ONCE ONE PRN Reason: As Directed Stop: 03/04/17 08:24 Lactobacillus Acidophilus (Bacid Acidophilus) 1 cap PO BID [facility] Last Admin: 03/04/17 08:19 Dose: 1 cap Loperamide HCl (Imodium) 2 mg PO QID PRN PRN Reason: Diarrhea Last Admin: 03/01/17 12:20 Dose: 2 mg Megestrol Acetate (Megace) 400 mg PO DAILY [facility] Last Admin: 03/03/17 11:28 Dose: Not Given Metoprolol Tartrate (Lopressor) 25 mg PO Q12 [facility] Last Admin: 03/04/17 08:20 Dose: 25 mg Nystatin (Nystop Topical Powder) 1 applic TOP TID [facility] Last Admin: 03/04/17 08:19 Dose: 1 applic Pantoprazole Sodium (Protonix Ec Tab) 40 mg PO DAILY [facility] Last Admin: 03/03/17 10:43 Dose: 40 mg Potassium Phos/Sodium Phos (Neutra-Phos) 1 pkt PO DAILY [facility] Last Admin: 03/03/17 10:46 Dose: 1 pkt - Labs Labs: 03/04/17 04:30 03/04/17 04:30 PT 15.9 Seconds (9.8-13.1) H 02/24/17 10:30 INR 1.4 (0.9-1.2) H 02/24/17 10:30 APTT 28.5 Seconds (25.6-37.1) 02/24/17 10:30
[2017-03-04 09:49] LABS: NEUTROPHIL 89 % (42-75); TOTAL CELLS COUNTED 100
--- NOTE | 2017-03-04 10:14 | CP.PCM.PN ---
<Rick Mendez - Last Filed: 03/04/17 10:18> Subjective - Date & Time of Evaluation Date of Evaluation: 03/04/17 Time of Evaluation: 10:09 - Subjective Subjective: Pulmonology consult f/u: No acute overnight events. Patient seen and evaluated this morning at the bedside. Patient was more confused speaking coherently at times in full sentences but still has poor comprehension. Not in any respiratory distress. Trachea midline. No audible crackles or wheezing. Breath sounds slightly diminished on the left side. O2 sat wnl on rm air. Plan to receive 3rd round of chemotherapy today. Currently undergoing radiation therapy at [facility] as well. Continue with current management. Stable from pulmonology stand point. Objective - Vital Signs/Intake and Output Vital Signs (last 24 hours): Temp Pulse Resp BP Pulse Ox 98.1 F 79 20 150/78 97 03/04/17 07:49 03/04/17 08:20 03/04/17 07:49 03/04/17 08:20 03/04/17 07:49 - Medications Medications: Current Medications Acetaminophen (Tylenol 325mg Tab) 650 mg PO Q6 PRN PRN Reason: Fever >100.4 F Acetaminophen (Tylenol 325mg Tab) 650 mg PO Q4 PRN PRN Reason: Pain, Mild (1-3) Last Admin: 03/03/17 20:52 Dose: 650 mg Camphor/Menthol (Bengay) 1 applic TOP QID PRN PRN Reason: Muscle spasm Last Admin: 03/03/17 20:49 Dose: 1 applic Dexamethasone (Decadron Inj) 4 mg IVP Q8H [facility] Last Admin: 03/04/17 04:27 Dose: 4 mg Ferrous Sulfate (Feosol) 325 mg PO BID [facility] Last Admin: 03/03/17 17:18 Dose: Not Given Levetiracetam 500 mg/ Sodium (Chloride) 105 mls @ 210 mls/hr IVPB Q12 [facility] Last Admin: 03/03/17 20:47 Dose: 210 mls/hr Cefazolin Sodium/Dextrose (Ancef Iv 2 Gm Duplex) 2 gm in 50 mls @ 50 mls/hr IVPB Q8 [facility] Last Admin: 03/04/17 01:25 Dose: 50 mls/hr Sodium Chloride (Sodium Chloride 0.9%) 500 mls @ 100 mls/hr IV .Q5H [facility] Last Admin: 03/04/17 04:28 Dose: 100 mls/hr Sodium Chloride (Sodium Chloride 0.9%) 500 mls @ 100 mls/hr IV .Q5H [facility] Stop: 03/04/17 13:59 Etoposide 140 mg/ Sodium (Chloride) 507 mls @ 0 mls/hr IV ONCE ONE PRN Reason: As Directed Stop: 03/04/17 08:24 Lactobacillus Acidophilus (Bacid Acidophilus) 1 cap PO BID [facility] Last Admin: 03/04/17 08:19 Dose: 1 cap Loperamide HCl (Imodium) 2 mg PO QID PRN PRN Reason: Diarrhea Last Admin: 03/01/17 12:20 Dose: 2 mg Megestrol Acetate (Megace) 400 mg PO DAILY [facility] Last Admin: 03/03/17 11:28 Dose: Not Given Metoprolol Tartrate (Lopressor) 25 mg PO Q12 [facility] Last Admin: 03/04/17 08:20 Dose: 25 mg Nystatin (Nystop Topical Powder) 1 applic TOP TID [facility] Last Admin: 03/04/17 08:19 Dose: 1 applic Pantoprazole Sodium (Protonix Ec Tab) 40 mg PO DAILY [facility] Last Admin: 03/03/17 10:43 Dose: 40 mg Potassium Phos/Sodium Phos (Neutra-Phos) 1 pkt PO DAILY [facility] Last Admin: 03/03/17 10:46 Dose: 1 pkt - Labs Labs: 03/04/17 04:30 03/04/17 04:30 PT 15.9 Seconds (9.8-13.1) H 02/24/17 10:30 INR 1.4 (0.9-1.2) H 02/24/17 10:30 APTT 28.5 Seconds (25.6-37.1) 02/24/17 10:30 - Constitutional Appears: Well, No Acute Distress - Head Exam Head Exam: ATRAUMATIC - Respiratory Exam Respiratory Exam: Decreased Breath Sounds. absent: Accessory Muscle Use, Chest Wall Tenderness, Rales, Wheezes, Respiratory Distress - Cardiovascular Exam Cardiovascular Exam: +S1, +S2. absent: Murmur - GI/Abdominal Exam GI & Abdominal Exam: Soft. absent: Tenderness - Extremities Exam Extremities Exam: Normal Capillary Refill Additional comments: Left knee swelling reduced, warm but improved from yesterday, no redness - Neurological Exam Neurological Exam: Awake. absent: Oriented x3 - Psychiatric Exam Psychiatric exam: Anxious <Dewayne Rodriguez - Last Filed: 03/04/17 11:08> Subjective - Subjective Subjective: Case reviewed and findings discussed on rounds. Agree with assessment and plan. Will likely be discharged to [facility]. Objective - Vital Signs/Intake and Output Vital Signs (last 24 hours): Temp Pulse Resp BP Pulse Ox 98.1 F 79 20 150/78 97 03/04/17 07:49 03/04/17 08:20 03/04/17 07:49 03/04/17 08:20 03/04/17 07:49 - Medications Medications: Current Medications Acetaminophen (Tylenol 325mg Tab) 650 mg PO Q6 PRN PRN Reason: Fever >100.4 F Acetaminophen (Tylenol 325mg Tab) 650 mg PO Q4 PRN PRN Reason: Pain, Mild (1-3) Last Admin: 03/03/17 20:52 Dose: 650 mg Camphor/Menthol (Bengay) 1 applic TOP QID PRN PRN Reason: Muscle spasm Last Admin: 03/03/17 20:49 Dose: 1 applic Dexamethasone (Decadron Inj) 4 mg IVP Q8H [facility] Last Admin: 03/04/17 04:27 Dose: 4 mg Ferrous Sulfate (Feosol) 325 mg PO BID [facility] Last Admin: 03/04/17 11:03 Dose: 325 mg Levetiracetam 500 mg/ Sodium (Chloride) 105 mls @ 210 mls/hr IVPB Q12 [facility] Last Admin: 03/04/17 10:40 Dose: 210 mls/hr Cefazolin Sodium/Dextrose (Ancef Iv 2 Gm Duplex) 2 gm in 50 mls @ 50 mls/hr IVPB Q8 [facility] Last Admin: 03/04/17 01:25 Dose: 50 mls/hr Sodium Chloride (Sodium Chloride 0.9%) 500 mls @ 100 mls/hr IV .Q5H [facility] Last Admin: 03/04/17 04:28 Dose: 100 mls/hr Sodium Chloride (Sodium Chloride 0.9%) 500 mls @ 100 mls/hr IV .Q5H [facility] Stop: 03/04/17 13:59 Etoposide 140 mg/ Sodium (Chloride) 507 mls @ 0 mls/hr IV ONCE ONE PRN Reason: As Directed Stop: 03/04/17 08:24 Lactobacillus Acidophilus (Bacid Acidophilus) 1 cap PO BID [facility] Last Admin: 03/04/17 08:19 Dose: 1 cap Loperamide HCl (Imodium) 2 mg PO QID PRN PRN Reason: Diarrhea Last Admin: 03/01/17 12:20 Dose: 2 mg Megestrol Acetate (Megace) 400 mg PO DAILY [facility] Last Admin: 03/04/17 11:02 Dose: 400 mg Metoprolol Tartrate (Lopressor) 25 mg PO Q12 [facility] Last Admin: 03/04/17 08:20 Dose: 25 mg Nystatin (Nystop Topical Powder) 1 applic TOP TID [facility] Last Admin: 03/04/17 08:19 Dose: 1 applic Pantoprazole Sodium (Protonix Ec Tab) 40 mg PO DAILY [facility] Last Admin: 03/04/17 11:02 Dose: 40 mg Potassium Phos/Sodium Phos (Neutra-Phos) 1 pkt PO DAILY [facility] Last Admin: 03/04/17 11:02 Dose: 1 pkt - Labs Labs: 03/04/17 04:30 03/04/17 04:30 PT 15.9 Seconds (9.8-13.1) H 02/24/17 10:30 INR 1.4 (0.9-1.2) H 02/24/17 10:30 APTT 28.5 Seconds (25.6-37.1) 02/24/17 10:30
[2017-03-04] MEDS: levETIRAcetam 500 MG in Sodium Chloride 0.9% 100 ML IVPB SCH ×2 (10:40→20:31)
[2017-03-04] MEDS: Pantoprazole 40 mg EC Tab PO SCH (11:02)
[2017-03-04] MEDS: Potassium & Sodium Phosphate PO SCH (11:02)
[2017-03-04] MEDS: Megestrol Acetate 40 mg/ml Cup PO SCH (11:02)
[2017-03-04 12:49] LABS: CHLORIDE 109 mmol/L (98-107)
--- NOTE | 2017-03-04 19:46 | CP.PCM.PN ---
Subjective - Date & Time of Evaluation Date of Evaluation: 03/04/17 Time of Evaluation: 15:00 - Subjective Subjective: Patient seen bedside. Hemodynamically stable, afebrile. Had RT and chemo today. With incomprehensible speech and confused , pulling his clothes off, not following any commands at present no acute distress Objective - Vital Signs/Intake and Output Vital Signs (last 24 hours): Temp Pulse Resp BP Pulse Ox 98.2 F 75 20 133/74 96 03/04/17 15:49 03/04/17 15:49 03/04/17 15:49 03/04/17 15:49 03/04/17 15:49 - Medications Medications: Current Medications Acetaminophen (Tylenol 325mg Tab) 650 mg PO Q6 PRN PRN Reason: Fever >100.4 F Acetaminophen (Tylenol 325mg Tab) 650 mg PO Q4 PRN PRN Reason: Pain, Mild (1-3) Last Admin: 03/03/17 20:52 Dose: 650 mg Camphor/Menthol (Bengay) 1 applic TOP QID PRN PRN Reason: Muscle spasm Last Admin: 03/03/17 20:49 Dose: 1 applic Dexamethasone (Decadron Inj) 4 mg IVP Q8H [facility] Last Admin: 03/04/17 15:05 Dose: Not Given Ferrous Sulfate (Feosol) 325 mg PO BID [facility] Last Admin: 03/04/17 16:56 Dose: 325 mg Levetiracetam 500 mg/ Sodium (Chloride) 105 mls @ 210 mls/hr IVPB Q12 [facility] Last Admin: 03/04/17 10:40 Dose: 210 mls/hr Cefazolin Sodium/Dextrose (Ancef Iv 2 Gm Duplex) 2 gm in 50 mls @ 50 mls/hr IVPB Q8 [facility] Last Admin: 03/04/17 15:13 Dose: 50 mls/hr Sodium Chloride (Sodium Chloride 0.9%) 500 mls @ 100 mls/hr IV .Q5H [facility] Last Admin: 03/04/17 16:55 Dose: 100 mls/hr Lactobacillus Acidophilus (Bacid Acidophilus) 1 cap PO BID [facility] Last Admin: 03/04/17 16:56 Dose: 1 cap Loperamide HCl (Imodium) 2 mg PO QID PRN PRN Reason: Diarrhea Last Admin: 03/01/17 12:20 Dose: 2 mg Megestrol Acetate (Megace) 400 mg PO DAILY [facility] Last Admin: 03/04/17 11:02 Dose: 400 mg Metoprolol Tartrate (Lopressor) 25 mg PO Q12 [facility] Last Admin: 03/04/17 08:20 Dose: 25 mg Nystatin (Nystop Topical Powder) 1 applic TOP TID [facility] Last Admin: 03/04/17 16:55 Dose: 1 applic Pantoprazole Sodium (Protonix Ec Tab) 40 mg PO DAILY [facility] Last Admin: 03/04/17 11:02 Dose: 40 mg Potassium Phos/Sodium Phos (Neutra-Phos) 1 pkt PO DAILY [facility] Last Admin: 03/04/17 11:02 Dose: 1 pkt - Labs Labs: 03/04/17 04:30 03/04/17 04:30 PT 15.9 Seconds (9.8-13.1) H 02/24/17 10:30 INR 1.4 (0.9-1.2) H 02/24/17 10:30 APTT 28.5 Seconds (25.6-37.1) 02/24/17 10:30 - Constitutional Appears: No Acute Distress, Chronically Ill - Head Exam Head Exam: ATRAUMATIC, NORMOCEPHALIC - Eye Exam Eye Exam: EOMI, PERRL Pupil Exam: NORMAL ACCOMODATION - ENT Exam ENT Exam: Mucous Membranes Moist, Normal Exam - Neck Exam Neck Exam: Full ROM, Normal Inspection - Respiratory Exam Respiratory Exam: Clear to Ausculation Bilateral, NORMAL BREATHING PATTERN. absent: Rhonchi, Wheezes - Cardiovascular Exam Cardiovascular Exam: REGULAR RHYTHM, +S1, +S2. absent: JVD - GI/Abdominal Exam GI & Abdominal Exam: Soft, Normal Bowel Sounds. 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 CT of head showed : 1.3 x 1.6 cm lesion in the left posterior parietal lobe with surrounding vasogenic edema is most compatible with mucinous/ cellular/ hemorrhagic metastatic deposit with patient's history of lung cancer. No evidence of midline shift or herniation. Patient started on radiation therapy at [facility] therapy ad today finished third day of chemo.Plan for d/c to TCU 1. Metastatic Brain Lesion Pt presented with aphasia , found to have Metastatic brain lesion on CT of head . At present with incomprehensible speech, confused Neurology consulted- discussed case with Dr Shine- joy Decadron t for edema and Fabiola for seizure proph On Decadron 4 mg IV Q8 Discussed with Oncology - Dr Logan -joy Radiotherapy Radiation therapy started by Dr Taylor at [facility]. Patient went for RT today continue PT,OT ,Speech therapy 2. 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 Anemia and Thrombocytopenia sec to Chemotherapy Neutropenia resolved, received Granix was transfused 2 units PRBC on 02/24 Dr Logan Hemotologist following 3. Hypomagnesemia Mg 1.4 Continue Magox 400 mg po BID 4. History of Septic arthritis Left knee. cont Ancef IV q8 previous cultures from Left knee: MSSA family does not want further involvement of ID on the case faraz removed 5. 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 DVT Prophylaxis SCD No anticoag due to low platelet 7. Failure to thrive Continue Ensure Encourage po intake as much as possible Added Megace Overall, prognosis is poor Patient may be candidate for hospice moving forward
[2017-03-04] MEDS: Magnesium Oxide 400 mg Tab UD PO SCH (22:07)
[2017-03-05] MEDS ORDERED: Dexamethasone 4 MG in Sodium Chloride 0.9% 50 ML IVPB SCH (01:00)
[2017-03-05] MEDS: Sodium Chloride 0.9% 500 ML IV SCH (01:01)
[2017-03-05] MEDS: Dexamethasone 4 mg/1 ml IVP SCH ×2 (06:14→15:25)
[2017-03-05] MEDS: ceFAZolin IV 2 gm in Dextrose 2 GM/50 ML BAG IVPB SCH ×2 (06:14→15:25)
[2017-03-05 07:36] LABS: BLOOD UREA NITROGEN 26 mg/dl (9-20); CALCIUM 9.6 mg/dL (8.4-10.2); CARBON DIOXIDE 23 mmol/L (22-30); CHLORIDE 108 mmol/L (98-107); GFR AFRICAN-AMERICAN > 60; GLUCOSE,RANDOM 97 mg/dL (75-110); MAGNESIUM 1.2 MG/DL (1.6-2.3); POTASSIUM 4.2 MMOL/L (3.6-5.0); SODIUM 138 mmol/l (132-148)
[2017-03-05] MEDS: levETIRAcetam 500 MG in Sodium Chloride 0.9% 100 ML IVPB SCH (08:04)
[2017-03-05 08:10] VITALS: RESP 20
[2017-03-05 08:18] LABS: HEMATOCRIT 25.9 % (35.0-51.0); MEAN CELL VOLUME 84.5 fl (80.0-94.0); MEAN CORPUSCULAR HEMOGLOBIN 28.5 pg (27.0-31.0); MEAN CORPUSCULAR HGB CONC 33.7 g/dL (33.0-37.0); RED CELL DISTRIBUTION WIDTH 22.4 % (11.5-14.5); WHITE BLOOD COUNT 10.8 K/uL (4.8-10.8)
--- NOTE | 2017-03-05 09:25 | CP.PCM.PN ---
Subjective - Date & Time of Evaluation Date of Evaluation: 03/05/17 Time of Evaluation: 09:21 - Subjective Subjective: Pt is feeling much better. He is still confused but that seems to be improving. He finished his chemotherapy yesterday and tolerated it well. He is continuing his RT to the brain. Would have started him on granix, but his wbc was 10.2 yesterday so will hold off/ Objective - Vital Signs/Intake and Output Vital Signs (last 24 hours): Temp Pulse Resp BP Pulse Ox 98.8 F 82 20 150/91 H 97 03/05/17 08:09 03/05/17 08:09 03/05/17 08:09 03/05/17 08:09 03/05/17 08:09 Intake and Output: 03/05/17 03/05/17 06:59 18:59 Intake Total 800 Balance 800 - Medications Medications: Current Medications Acetaminophen (Tylenol 325mg Tab) 650 mg PO Q6 PRN PRN Reason: Fever >100.4 F Acetaminophen (Tylenol 325mg Tab) 650 mg PO Q4 PRN PRN Reason: Pain, Mild (1-3) Last Admin: 03/03/17 20:52 Dose: 650 mg Camphor/Menthol (Bengay) 1 applic TOP QID PRN PRN Reason: Muscle spasm Last Admin: 03/03/17 20:49 Dose: 1 applic Dexamethasone (Decadron Inj) 4 mg IVP Q8H [facility] Last Admin: 03/05/17 06:14 Dose: 4 mg Ferrous Sulfate (Feosol) 325 mg PO BID [facility] Last Admin: 03/04/17 16:56 Dose: 325 mg Levetiracetam 500 mg/ Sodium (Chloride) 105 mls @ 210 mls/hr IVPB Q12 [facility] Last Admin: 03/05/17 08:04 Dose: 210 mls/hr Sodium Chloride (Sodium Chloride 0.9%) 500 mls @ 100 mls/hr IV .Q5H [facility] Last Admin: 03/05/17 01:01 Dose: Not Given Cefazolin Sodium/Dextrose (Ancef Iv 2 Gm Duplex) 2 gm in 50 mls @ 50 mls/hr IVPB Q8@0700,1500,2200 [facility] Last Admin: 03/05/17 06:14 Dose: 50 mls/hr Lactobacillus Acidophilus (Bacid Acidophilus) 1 cap PO BID [facility] Last Admin: 03/04/17 16:56 Dose: 1 cap Loperamide HCl (Imodium) 2 mg PO QID PRN PRN Reason: Diarrhea Last Admin: 03/01/17 12:20 Dose: 2 mg Magnesium Oxide (Mag-Ox) 400 mg PO BID [facility] Last Admin: 03/04/17 22:07 Dose: 400 mg Megestrol Acetate (Megace) 400 mg PO DAILY [facility] Last Admin: 03/04/17 11:02 Dose: 400 mg Metoprolol Tartrate (Lopressor) 25 mg PO Q12 [facility] Last Admin: 03/04/17 21:08 Dose: 25 mg Nystatin (Nystop Topical Powder) 1 applic TOP TID [facility] Last Admin: 03/04/17 16:55 Dose: 1 applic Pantoprazole Sodium (Protonix Ec Tab) 40 mg PO DAILY [facility] Last Admin: 03/04/17 11:02 Dose: 40 mg Potassium Phos/Sodium Phos (Neutra-Phos) 1 pkt PO DAILY [facility] Last Admin: 03/04/17 11:02 Dose: 1 pkt Zolpidem Tartrate (Ambien) 5 mg PO HS PRN PRN Reason: Sleep Last Admin: 03/04/17 22:56 Dose: 5 mg - Labs Labs: 03/05/17 06:55 03/05/17 06:55 PT 15.9 Seconds (9.8-13.1) H 02/24/17 10:30 INR 1.4 (0.9-1.2) H 02/24/17 10:30 APTT 28.5 Seconds (25.6-37.1) 02/24/17 10:30
--- NOTE | 2017-03-05 09:30 | CP.PCM.PN ---
Subjective - Date & Time of Evaluation Date of Evaluation: 03/05/17 Time of Evaluation: 09:29 Objective - Vital Signs/Intake and Output Vital Signs (last 24 hours): Temp Pulse Resp BP Pulse Ox 98.8 F 82 20 150/91 H 97 03/05/17 08:09 03/05/17 08:09 03/05/17 08:09 03/05/17 08:09 03/05/17 08:09 Intake and Output: 03/05/17 03/05/17 06:59 18:59 Intake Total 800 Balance 800 - Medications Medications: Current Medications Acetaminophen (Tylenol 325mg Tab) 650 mg PO Q6 PRN PRN Reason: Fever >100.4 F Acetaminophen (Tylenol 325mg Tab) 650 mg PO Q4 PRN PRN Reason: Pain, Mild (1-3) Last Admin: 03/03/17 20:52 Dose: 650 mg Camphor/Menthol (Bengay) 1 applic TOP QID PRN PRN Reason: Muscle spasm Last Admin: 03/03/17 20:49 Dose: 1 applic Dexamethasone (Decadron Inj) 4 mg IVP Q8H [facility] Last Admin: 03/05/17 06:14 Dose: 4 mg Ferrous Sulfate (Feosol) 325 mg PO BID [facility] Last Admin: 03/04/17 16:56 Dose: 325 mg Levetiracetam 500 mg/ Sodium (Chloride) 105 mls @ 210 mls/hr IVPB Q12 [facility] Last Admin: 03/05/17 08:04 Dose: 210 mls/hr Sodium Chloride (Sodium Chloride 0.9%) 500 mls @ 100 mls/hr IV .Q5H [facility] Last Admin: 03/05/17 01:01 Dose: Not Given Cefazolin Sodium/Dextrose (Ancef Iv 2 Gm Duplex) 2 gm in 50 mls @ 50 mls/hr IVPB Q8@0700,1500,2200 [facility] Last Admin: 03/05/17 06:14 Dose: 50 mls/hr Lactobacillus Acidophilus (Bacid Acidophilus) 1 cap PO BID [facility] Last Admin: 03/04/17 16:56 Dose: 1 cap Loperamide HCl (Imodium) 2 mg PO QID PRN PRN Reason: Diarrhea Last Admin: 03/01/17 12:20 Dose: 2 mg Magnesium Oxide (Mag-Ox) 400 mg PO BID [facility] Last Admin: 03/04/17 22:07 Dose: 400 mg Megestrol Acetate (Megace) 400 mg PO DAILY [facility] Last Admin: 03/04/17 11:02 Dose: 400 mg Metoprolol Tartrate (Lopressor) 25 mg PO Q12 [facility] Last Admin: 03/04/17 21:08 Dose: 25 mg Nystatin (Nystop Topical Powder) 1 applic TOP TID [facility] Last Admin: 03/04/17 16:55 Dose: 1 applic Pantoprazole Sodium (Protonix Ec Tab) 40 mg PO DAILY [facility] Last Admin: 03/04/17 11:02 Dose: 40 mg Potassium Phos/Sodium Phos (Neutra-Phos) 1 pkt PO DAILY [facility] Last Admin: 03/04/17 11:02 Dose: 1 pkt Zolpidem Tartrate (Ambien) 5 mg PO HS PRN PRN Reason: Sleep Last Admin: 03/04/17 22:56 Dose: 5 mg - Labs Labs: 03/05/17 06:55 03/05/17 06:55 PT 15.9 Seconds (9.8-13.1) H 02/24/17 10:30 INR 1.4 (0.9-1.2) H 02/24/17 10:30 APTT 28.5 Seconds (25.6-37.1) 02/24/17 10:30 Assessment and Plan - Assessment and Plan (Free Text) Plan: 76 year old male with 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 CT of head showed : 1.3 x 1.6 cm lesion in the left posterior parietal lobe with surrounding vasogenic edema is most compatible with mucinous/ cellular/ hemorrhagic metastatic deposit with patient's history of lung cancer. No evidence of midline shift or herniation. Patient started on radiation therapy at [facility] therapy ad today finished third day of chemo.Plan for d/c to TCU 1. Metastatic Brain Lesion Pt presented with aphasia , found to have Metastatic brain lesion on CT of head . At present with incomprehensible speech, confused Neurology consulted- discussed case with Dr Shine- joy hu for edema and Fabiola for seizure proph On Decadron 4 mg IV Q8 Discussed with Oncology - Dr Logan -rec Radiotherapy Radiation therapy started by Dr Taylor at [facility] On[facility]. Patient went for RT today continue PT,OT ,Speech therapy 2. 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 Anemia and Thrombocytopenia sec to Chemotherapy Neutropenia resolved, received Granix was transfused 2 units PRBC on 02/24 Dr Logan Hemotologist following 3. Hypomagnesemia Mg 1.4 Continue Magox 400 mg po BID 4. History of Septic arthritis Left knee. cont Ancef IV q8 previous cultures from Left knee: MSSA family does not want further involvement of ID on the case faraz removed 5. 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 DVT Prophylaxis SCD No anticoag due to low platelet 7. Failure to thrive Continue Ensure Encourage po intake as much as possible Added Megace Overall, prognosis is poor Patient may be candidate for hospice moving forward
--- NOTE | 2017-03-05 13:11 | CP.PCM.PN ---
Subjective - Date & Time of Evaluation Date of Evaluation: 03/05/17 Time of Evaluation: 13:08 - Subjective Subjective: He is seated semi upright in bed with family at the bedside. He is awake and alert and able to express himself somewhat better. He does follow commands and has been cooperative. He has completed another cycle of chemotherapy and continues to receive RT. His pulmonary status remains stable. Objective - Vital Signs/Intake and Output Vital Signs (last 24 hours): Temp Pulse Resp BP Pulse Ox 98.8 F 82 20 150/91 H 97 03/05/17 08:09 03/05/17 08:09 03/05/17 08:09 03/05/17 08:09 03/05/17 08:09 Intake and Output: 03/05/17 03/05/17 11:59 23:59 Intake Total 800 Balance 800 - Medications Medications: Current Medications Acetaminophen (Tylenol 325mg Tab) 650 mg PO Q6 PRN PRN Reason: Fever >100.4 F Acetaminophen (Tylenol 325mg Tab) 650 mg PO Q4 PRN PRN Reason: Pain, Mild (1-3) Last Admin: 03/03/17 20:52 Dose: 650 mg Camphor/Menthol (Bengay) 1 applic TOP QID PRN PRN Reason: Muscle spasm Last Admin: 03/03/17 20:49 Dose: 1 applic Dexamethasone (Decadron Inj) 4 mg IVP Q8H [facility] Last Admin: 03/05/17 06:14 Dose: 4 mg Ferrous Sulfate (Feosol) 325 mg PO BID [facility] Last Admin: 03/04/17 16:56 Dose: 325 mg Levetiracetam 500 mg/ Sodium (Chloride) 105 mls @ 210 mls/hr IVPB Q12 [facility] Last Admin: 03/05/17 08:04 Dose: 210 mls/hr Sodium Chloride (Sodium Chloride 0.9%) 500 mls @ 100 mls/hr IV .Q5H [facility] Last Admin: 03/05/17 01:01 Dose: Not Given Cefazolin Sodium/Dextrose (Ancef Iv 2 Gm Duplex) 2 gm in 50 mls @ 50 mls/hr IVPB Q8@0700,1500,2200 [facility] Last Admin: 03/05/17 06:14 Dose: 50 mls/hr Lactobacillus Acidophilus (Bacid Acidophilus) 1 cap PO BID [facility] Last Admin: 03/04/17 16:56 Dose: 1 cap Loperamide HCl (Imodium) 2 mg PO QID PRN PRN Reason: Diarrhea Last Admin: 03/01/17 12:20 Dose: 2 mg Magnesium Oxide (Mag-Ox) 400 mg PO BID [facility] Last Admin: 03/04/17 22:07 Dose: 400 mg Megestrol Acetate (Megace) 400 mg PO DAILY [facility] Last Admin: 03/04/17 11:02 Dose: 400 mg Metoprolol Tartrate (Lopressor) 25 mg PO Q12 [facility] Last Admin: 03/04/17 21:08 Dose: 25 mg Nystatin (Nystop Topical Powder) 1 applic TOP TID [facility] Last Admin: 03/04/17 16:55 Dose: 1 applic Pantoprazole Sodium (Protonix Ec Tab) 40 mg PO DAILY [facility] Last Admin: 03/04/17 11:02 Dose: 40 mg Potassium Phos/Sodium Phos (Neutra-Phos) 1 pkt PO DAILY [facility] Last Admin: 03/04/17 11:02 Dose: 1 pkt Zolpidem Tartrate (Ambien) 5 mg PO HS PRN PRN Reason: Sleep Last Admin: 03/04/17 22:56 Dose: 5 mg - Labs Labs: 03/05/17 06:55 03/05/17 06:55 PT 15.9 Seconds (9.8-13.1) H 02/24/17 10:30 INR 1.4 (0.9-1.2) H 02/24/17 10:30 APTT 28.5 Seconds (25.6-37.1) 02/24/17 10:30 Assessment and Plan (1) Metastatic cancer Status: Acute
--- NOTE | 2017-03-05 13:22 | CP.PCM.DIS ---
Provider - Provider Date of Admission: 02/24/17 10:18 Attending physician: Xena Morales MD Time Spent in preparation of Discharge (in minutes): 30 Diagnosis - Discharge Diagnosis (1) Metastatic cancer Status: Acute Priority: High Hospital Course - Lab Results Lab Results: Most Recent Lab Values WBC 10.8 K/uL (4.8-10.8) 03/05/17 06:55 RBC 3.06 Mil/uL (4.40-5.90) L 03/05/17 06:55 Hgb 8.7 g/dL (12.0-18.0) L 03/05/17 06:55 Hct 25.9 % (35.0-51.0) L 03/05/17 06:55 MCV 84.5 fl (80.0-94.0) 03/05/17 06:55 MCH 28.5 pg (27.0-31.0) 03/05/17 06:55 MCHC 33.7 g/dL (33.0-37.0) 03/05/17 06:55 RDW 22.4 % (11.5-14.5) H 03/05/17 06:55 Plt Count 329 K/uL (130-400) 03/05/17 06:55 MPV 7.8 fl (7.2-11.7) 03/04/17 04:30 Neut % (Auto) 91.4 % (50.0-75.0) H 03/04/17 04:30 Lymph % (Auto) 4.4 % (20.0-40.0) L 03/04/17 04:30 Smith % (Auto) 4.0 % (0.0-10.0) 03/04/17 04:30 Eos % (Auto) 0.0 % (0.0-4.0) 03/04/17 04:30 Baso % (Auto) 0.2 % (0.0-2.0) 03/04/17 04:30 Neut # 14.3 K/uL (1.8-7.0) H 03/04/17 04:30 Lymph # 0.7 K/uL (1.0-4.3) L 03/04/17 04:30 Smith # 0.6 K/uL (0.0-0.8) 03/04/17 04:30 Eos # 0.0 K/uL (0.0-0.7) 03/04/17 04:30 Baso # 0.0 K/uL (0.0-0.2) 03/04/17 04:30 Neutrophils % (Manual) 89 % (42-75) H 03/04/17 04:30 Band Neutrophils % 1 % (0-2) 03/04/17 04:30 Lymphocytes % (Manual) 6 % (20-50) L 03/04/17 04:30 Monocytes % (Manual) 4 % (0-10) 03/04/17 04:30 Platelet Estimate Normal (NORMAL) 03/04/17 04:30 Hypochromasia (manual) Slight 03/04/17 04:30 Anisocytosis (manual) Moderate 03/04/17 04:30 Tear Drop Cells Slight 03/04/17 04:30 Ovalocytes Slight 03/04/17 04:30 Schistocytes Slight 03/04/17 04:30 PT 15.9 Seconds (9.8-13.1) H 02/24/17 10:30 INR 1.4 (0.9-1.2) H 02/24/17 10:30 APTT 28.5 Seconds (25.6-37.1) 02/24/17 10:30 Sodium 138 mmol/l (132-148) 03/05/17 06:55 Potassium 4.2 MMOL/L (3.6-5.0) 03/05/17 06:55 Chloride 108 mmol/L (98-107) H 03/05/17 06:55 Carbon Dioxide 23 mmol/L (22-30) 03/05/17 06:55 Anion Gap 11 (10-20) 03/05/17 06:55 BUN 26 mg/dl (9-20) H 03/05/17 06:55 Creatinine 0.9 mg/dl (0.8-1.5) 03/05/17 06:55 Est GFR ( Amer) > 60 03/05/17 06:55 Est GFR (Non-Af Amer) > 60 03/05/17 06:55 POC Glucose (mg/dL) 90 mg/dL (65-110) 02/24/17 10:24 Random Glucose 97 mg/dL (75-110) 03/05/17 06:55 Hemoglobin A1c 5.7 % (4.2-6.5) 02/24/17 10:30 Calcium 9.6 mg/dL (8.4-10.2) 03/05/17 06:55 Phosphorus 3.9 mg/dl (2.5-4.5) 03/03/17 04:25 Magnesium 1.2 MG/DL (1.6-2.3) L 03/05/17 06:55 Total Bilirubin 0.6 mg/dl (0.2-1.3) 02/24/17 10:30 AST 27 U/L (17-59) 02/24/17 10:30 ALT 25 U/L (21-72) 02/24/17 10:30 Alkaline Phosphatase 84 U/L (38-126) 02/24/17 10:30 Troponin I < 0.0120 ng/mL (0.00-0.120) 02/24/17 10:30 Total Protein 5.8 G/DL (6.3-8.2) L 02/24/17 10:30 Albumin 3.0 g/dL (3.5-5.0) L 02/24/17 10:30 Globulin 2.8 gm/dL (2.2-3.9) 02/24/17 10:30 Albumin/Globulin Ratio 1.1 (1.0-2.1) 02/24/17 10:30 Triglycerides 285 mg/DL (0-149) H 02/24/17 10:30 Cholesterol 113 mg/dL (0-199) 02/24/17 10:30 LDL Cholesterol Direct 40 mg/dL (0-129) 02/24/17 10:30 HDL Cholesterol 14 MG/DL (30-70) L 02/24/17 10:30 Blood Type O POSITIVE 02/24/17 10:30 Antibody Screen Negative 02/24/17 10:30 BBK History Checked Patient has bt 02/24/17 10:30 - Hospital Course Hospital Course: 76 year old male with hx of [place] 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 CT of head showed : 1.3 x 1.6 cm lesion in the left posterior parietal lobe with surrounding vasogenic edema is most compatible with mucinous/ cellular/ hemorrhagic metastatic deposit with patient's history of lung cancer. No evidence of midline shift or herniation. Patient started on radiation therapy at [facility] therapy ad today finished third day of chemo.Plan for d/c to TCU today for continuation of IV antibiotic, radiotherapy, and physical therapy. 1. Metastatic Brain Lesion Pt presented with aphasia , found to have Metastatic brain lesion on CT of head . At present with incomprehensible speech, confused Neurology consulted- discussed case with Dr Shine- joy Decadron t for edema and Fabiola for seizure proph On Decadron 4 mg IV Q8 Discussed with Oncology - Dr Logan -joy Radiotherapy Radiation therapy started by Dr Taylor at [facility] Oncology. Patient went for RT today continue PT,OT ,Speech therapy 2. [place] Cell Cancer with metastasis to lung and brain Dr Logan Oncologist following on Etoposide chemo received third dose today Radiotx for brain mets at [facility] 3. Anemia and Thrombocytopenia sec to Chemotherapy Neutropenia resolved, received Granix was transfused 2 units PRBC on 02/24 Dr Logan Hemotologist following 3. Hypomagnesemia Mg 1.4 Continue Magox 400 mg po BID 4. History of Septic arthritis Left knee. cont Ancef IV q8 previous cultures from Left knee: MSSA family does not want further involvement of ID on the case faraz removed 5. 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 DVT Prophylaxis SCD No anticoag due to low platelet 7. Failure to thrive Continue Ensure Encourage po intake as much as possible Added Megace Overall, prognosis is poor Patient may be candidate for hospice moving forward Discharge Exam - Head Exam Head Exam: ATRAUMATIC, NORMOCEPHALIC - Eye Exam Eye Exam: EOMI, Normal appearance, PERRL - ENT Exam ENT Exam: Mucous Membranes Moist, Normal Oropharynx - Respiratory Exam Respiratory Exam: Clear to PA & Lateral, NORMAL BREATHING PATTERN - Cardiovascular Exam Cardiovascular Exam: RRR, +S1, +S2 - GI/Abdominal Exam GI & Abdominal Exam: Normal Bowel Sounds, Soft. absent: Mass - Extremities Exam Extremities exam: normal capillary refill, pedal pulses present - Back Exam Back exam: absent: CVA tenderness (L), CVA tenderness (R) - Neurological Exam Neurological exam: Alert, Reflexes Normal - Psychiatric Exam Psychiatric exam: Normal Affect, Normal Mood - Skin Skin Exam: Dry, Normal Color Discharge Plan - Follow Up Plan Condition: FAIR Disposition: TRANSF TO SNF
[2017-03-05] MEDS: Lactobacillus Acidophilus 500 MU Cap PO SCH (13:24)
[2017-03-05] MEDS: Magnesium Oxide 400 mg Tab UD PO SCH (13:24)
[2017-03-05] MEDS: Megestrol Acetate 40 mg/ml Cup PO SCH (13:26)
[2017-03-05] MEDS: Potassium & Sodium Phosphate PO SCH (13:27)
[2017-03-05] MEDS: Pantoprazole 40 mg EC Tab PO SCH (13:29)
[2017-03-05 16:17] VITALS: BP 153/81; PULSE 80; TEMP 97.7; O2SAT 98
== END 2017-03-05 17:05 | DRG 54 ==
LOC: H.ER 09:37 → H.ERHOLD 10:18 → H.TEL 14:53 → H.MEDSURG1 03-04 18:40
PROVIDERS: ADMIT Internal Medicine; ATTEND Internal Medicine
PROC: D0Y07ZZ Contact Radiation of Brain (ICD-10-PCS; principal; 2017-03-02)
PROC: 3E03305 Introduction of Other Antineoplastic into Peripheral Vein, Percutaneous Approach (ICD-10-PCS; 2017-03-04)
DX: C79.31 Secondary malignant neoplasm of brain (principal); G93.6 Cerebral edema; J91.0 Malignant pleural effusion; D61.810 Antineoplastic chemotherapy induced pancytopenia; C78.00 Secondary malignant neoplasm of unspecified lung; D69.59 Other secondary thrombocytopenia; E83.42 Hypomagnesemia; R47.01 Aphasia; D64.81 Anemia due to antineoplastic chemotherapy; T45.1X5A Adverse effect of antineoplastic and immunosuppressive drugs, initial encounter; Z85.821 Personal history of Merkel cell carcinoma; I48.91 Unspecified atrial fibrillation; I10 Essential (primary) hypertension; J44.9 Chronic obstructive pulmonary disease, unspecified; H91.90 Unspecified hearing loss, unspecified ear; L30.8 Other specified dermatitis; R62.7 Adult failure to thrive; Z66 Do not resuscitate; Z92.3 Personal history of irradiation; F41.9 Anxiety disorder, unspecified; Z79.2 Long term (current) use of antibiotics; Z87.891 Personal history of nicotine dependence; Z92.21 Personal history of antineoplastic chemotherapy; Z96.652 Presence of left artificial knee joint; Z86.19 Personal history of other infectious and parasitic diseases; Z89.421 Acquired absence of other right toe(s); Z87.01 Personal history of pneumonia (recurrent); Y92.9 Unspecified place or not applicable

== ENCOUNTER 2017-03-05 14:34 | Inpatient (IN) | payer MEDICARE, OTHER ==
[2017-03-05 17:19] VITALS: BMI 27.4
[2017-03-05] MEDS ORDERED: Menthol/Methyl Salicylate Oinment TOP PRN (18:28)
[2017-03-05] MEDS ORDERED: Dexamethasone 4 mg/1 ml IVP SCH (18:30)
[2017-03-06] MEDS: ceFAZolin IV 2 gm in Dextrose 2 GM/50 ML BAG IVPB SCH ×3 (00:51→18:12)
[2017-03-06] MEDS ORDERED: [UNRECOGNIZED DRUG - OTHER] IV SCH (01:00)
[2017-03-06] MEDS ORDERED: CEFAZOLIN SODIUM IV SCH (01:00)
[2017-03-06] MEDS ORDERED: NACL IV SCH (01:00)
[2017-03-06] MEDS: Dexamethasone 4 mg/1 ml IVP SCH ×2 (04:24→15:12)
[2017-03-06 08:13] VITALS: RESP 20
[2017-03-06] MEDS: Lactobacillus Acidophilus 500 MU Cap PO SCH ×2 (10:04→18:13)
[2017-03-06] MEDS: Megestrol Acetate 40 mg/ml Cup PO SCH (10:04)
[2017-03-06] MEDS: Magnesium Oxide 400 mg Tab UD PO SCH ×2 (10:04→18:13)
[2017-03-06] MEDS: Pantoprazole 40 mg EC Tab PO SCH (10:05)
[2017-03-06] MEDS: Potassium & Sodium Phosphate PO SCH (10:05)
--- NOTE | 2017-03-06 10:40 | CP.PCM.PN ---
Subjective - Date & Time of Evaluation Date of Evaluation: 03/06/17 Time of Evaluation: 10:33 - Subjective Subjective: Discharged from acute medicine yesterday. Has done quite well with RT and decadron for brain met. Finished chemo earlier in the week as well. Vital signs are stable. He is more alert and still having expressive aphasia, but gradually improving. His pulmonary status has been stable. His left knee is not swollen, erythematous or with increased warmth. He is able to make it understood that he is anxious to have physical therapy. Will continue his RT and finish his Ancef, after which ortho suggests a prolonged course of PO antibiotic. Objective - Vital Signs/Intake and Output Vital Signs (last 24 hours): Temp Pulse Resp BP Pulse Ox 97.5 F L 85 20 157/94 H 98 03/06/17 08:12 03/06/17 10:05 03/06/17 08:12 03/06/17 10:05 03/06/17 08:12 - Medications Medications: Current Medications Acetaminophen (Tylenol 325mg Tab) 650 mg PO Q6 PRN PRN Reason: Fever >100.4 F Last Admin: 03/06/17 02:49 Dose: 650 mg Acetaminophen (Tylenol 325mg Tab) 650 mg PO Q4 PRN PRN Reason: Pain, Mild (1-3) Camphor/Menthol (Bengay) 1 applic TOP QID PRN PRN Reason: Muscle spasm Dexamethasone (Decadron Inj) 4 mg IVP Q8@0500,1300,2100 [facility] Last Admin: 03/06/17 04:24 Dose: 4 mg Ferrous Sulfate (Feosol) 325 mg PO BID [facility] Last Admin: 03/06/17 10:04 Dose: 325 mg Cefazolin Sodium/Dextrose (Ancef Iv 2 Gm Duplex) 2 gm in 50 mls @ 50 mls/hr IVPB Q8H [facility] Last Admin: 03/06/17 00:51 Dose: 50 mls/hr Lactobacillus Acidophilus (Bacid Acidophilus) 1 cap PO BID [facility] Last Admin: 03/06/17 10:04 Dose: 1 cap Magnesium Oxide (Mag-Ox) 400 mg PO BID [facility] Last Admin: 03/06/17 10:04 Dose: 400 mg Megestrol Acetate (Megace) 400 mg PO DAILY [facility] Last Admin: 03/06/17 10:04 Dose: 400 mg Metoprolol Tartrate (Lopressor) 25 mg PO Q12 [facility] Last Admin: 03/06/17 10:05 Dose: 25 mg Nystatin (Nystop Topical Powder) 1 applic TOP TID [facility] Last Admin: 03/06/17 10:05 Dose: 1 unit Pantoprazole Sodium (Protonix Ec Tab) 40 mg PO DAILY [facility] Last Admin: 03/06/17 10:05 Dose: 40 mg Potassium Phos/Sodium Phos (Neutra-Phos) 1 pkt PO DAILY [facility] Last Admin: 03/06/17 10:05 Dose: 1 pkt Zolpidem Tartrate (Ambien) 5 mg PO HS PRN PRN Reason: Sleep Last Admin: 03/05/17 23:16 Dose: 5 mg
--- NOTE | 2017-03-06 12:08 | CP.PCM.PN ---
Subjective - Date & Time of Evaluation Date of Evaluation: 03/06/17 Time of Evaluation: 12:08 - Subjective Subjective: Pt is still very confused but is improving day by day. He is still continuing the RT and the antibiotics, and will get chemotherapy in 3 weeks Objective - Vital Signs/Intake and Output Vital Signs (last 24 hours): Temp Pulse Resp BP Pulse Ox 97.5 F L 85 20 157/94 H 98 03/06/17 08:12 03/06/17 10:05 03/06/17 08:12 03/06/17 10:05 03/06/17 08:12 - Medications Medications: Current Medications Acetaminophen (Tylenol 325mg Tab) 650 mg PO Q6 PRN PRN Reason: Fever >100.4 F Last Admin: 03/06/17 02:49 Dose: 650 mg Acetaminophen (Tylenol 325mg Tab) 650 mg PO Q4 PRN PRN Reason: Pain, Mild (1-3) Camphor/Menthol (Bengay) 1 applic TOP QID PRN PRN Reason: Muscle spasm Dexamethasone (Decadron Inj) 4 mg IVP Q8@0500,1300,2100 [facility] Last Admin: 03/06/17 04:24 Dose: 4 mg Ferrous Sulfate (Feosol) 325 mg PO BID [facility] Last Admin: 03/06/17 10:04 Dose: 325 mg Cefazolin Sodium/Dextrose (Ancef Iv 2 Gm Duplex) 2 gm in 50 mls @ 50 mls/hr IVPB Q8H [facility] Last Admin: 03/06/17 10:51 Dose: 50 mls/hr Lactobacillus Acidophilus (Bacid Acidophilus) 1 cap PO BID [facility] Last Admin: 03/06/17 10:04 Dose: 1 cap Magnesium Oxide (Mag-Ox) 400 mg PO BID [facility] Last Admin: 03/06/17 10:04 Dose: 400 mg Megestrol Acetate (Megace) 400 mg PO DAILY [facility] Last Admin: 03/06/17 10:04 Dose: 400 mg Metoprolol Tartrate (Lopressor) 25 mg PO Q12 [facility] Last Admin: 03/06/17 10:05 Dose: 25 mg Nystatin (Nystop Topical Powder) 1 applic TOP TID [facility] Last Admin: 03/06/17 10:05 Dose: 1 unit Pantoprazole Sodium (Protonix Ec Tab) 40 mg PO DAILY [facility] Last Admin: 03/06/17 10:05 Dose: 40 mg Potassium Phos/Sodium Phos (Neutra-Phos) 1 pkt PO DAILY [facility] Last Admin: 03/06/17 10:05 Dose: 1 pkt Zolpidem Tartrate (Ambien) 5 mg PO HS PRN PRN Reason: Sleep Last Admin: 03/05/17 23:16 Dose: 5 mg
--- NOTE | 2017-03-06 15:11 | CP.PCM.HP ---
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 CT of head showed : 1.3 x 1.6 cm lesion in the left posterior parietal lobe with surrounding vasogenic edema is most compatible with mucinous/ cellular/ hemorrhagic metastatic deposit with patient's history of lung cancer. No evidence of midline shift or herniation. Patient was started on radiation therapy and decadron IV for edema.Patient also received his planned chemotherapy cycle during this admission given by oncology. He still has moments of confusion and has difficulty at times following commands.Patient is 2 person assist for all daily activities. transferred to TCU for physical therapy as per family's request.He is still receiving radiation therapy for 1 more week He is comfortable in NAD , but confused at times. ROS; all other system review is negative except above Present on Admission - Present on Admission Any Indicators Present on Admission: No Review of Systems - Review of Systems All systems: reviewed and no additional remarkable complaints except Past Patient History - Infectious Disease Hx of Infectious Diseases: None - Tetanus Immunizations Tetanus Immunization: Unknown - Past Medical History & Family History Past Medical History?: Yes - Past Social History Smoking Status: Former Smoker Chewing Tobacco Use: No Cigar Use: No Alcohol: None Drugs: Denies Home Situation {Lives}: Alone Domestic Violence: Negative - CARDIAC Hx Atrial Fibrillation: Yes Hx Hypertension: Yes - PULMONARY Hx Chronic Obstructive Pulmonary Disease (COPD): Yes Hx Lung Cancer: Yes (metastatic disease RUL and LLL) Hx Pneumonia: Yes Other/Comment: Malignant pleural effusion. - NEUROLOGICAL Hx Neurological Disorder: No - HEENT Hx Deafness: Yes Other/Comment: Significant hearing loss. 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 - MUSCULOSKELETAL/RHEUMATOLOGICAL Hx Falls: No - GASTROINTESTINAL Hx Gastritis: Yes - GENITOURINARY/GYNECOLOGICAL Hx Genitourinary Disorders: No - PSYCHIATRIC Hx Substance Use: No - SURGICAL HISTORY Hx Arthroscopy: Yes (left knee) Hx Orthopedic Surgery: Yes (left knee replacement 11/03) Other/Comment: Excision of tumor on the scalp. Chest tube placement for pleural effusion followed by pleurodesis. right fourth toe amputation - ANESTHESIA Hx Anesthesia: Yes Hx Anesthesia Reactions: No Hx Malignant Hyperthermia: No Meds Allergies/Adverse Reactions: Allergies Allergy/AdvReac Type Severity Reaction Status Date / Time No Known Allergies Allergy Verified 03/05/17 16:51 Physical Exam - Constitutional Appears: Non-toxic, No Acute Distress, Confused (at times), Chronically Ill - Head Exam Head Exam: ATRAUMATIC, NORMOCEPHALIC - Eye Exam Eye Exam: EOMI, PERRL Pupil Exam: NORMAL ACCOMODATION - ENT Exam ENT Exam: Mucous Membranes Moist, Normal Exam - Neck Exam Neck exam: Positive for: Full Rom, Normal Inspection - Respiratory Exam Respiratory Exam: Clear to Auscultation Bilateral, NORMAL BREATHING PATTERN. absent: Rales, Rhonchi, Wheezes - Cardiovascular Exam Cardiovascular Exam: REGULAR RHYTHM, RRR, +S1, +S2. absent: JVD - GI/Abdominal Exam GI & Abdominal Exam: Normal Bowel Sounds. absent: Distended, Guarding, Rebound , Tenderness - Rectal Exam Rectal Exam: Deferred - Extremities Exam Extremities exam: Positive for: normal capillary refill, pedal pulses present. 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 Ct head showed 1.3 x 1.6 cm lesion in the left posterior parietal lobe with surrounding vasogenic edema , most likely metastasis given his history of lung cancer. Patient was started on palliative radiation therapy and decadron IV for edema.Patient also received his planned chemotherapy cycle during this admission given by oncology. He still has moments of confusion and has difficulty at times following commands.Patient is 2 person assist for all daily activities. Transferred to TCU for physical therapy as per family's request.He is still receiving radiation therapy for 1 more week He is comfortable in NAD , but confused at times. 1. Generalized weakness and deconditioning Patient is 2 people assist start PT in TCU 2. Metastatic Brain Lesion Ct head showed 1.3x 1.6 cm lesion of left posterior parietal lobe with edema At present with slurred speech,sometimes confused Neurology consulted. Case was discussed with Dr Shine who recommended Decadron for edema and Keppra for seizure proph Changed Decadron 4 mg IV Q8 to PO Continue radiation therapy for 1 more week continue PT,OT ,Speech therapy 3. [place] Cell Cancer with metastasis to lung and brain Dr Logan Oncologist following Finished his chemo cycle 2 delaney ago and is suppose to get next cycle in 3 weeks Radiotx for brain mets at [facility] monitor closely for pancytopenia 4. Anemia and Thrombocytopenia sec to Chemotherapy Neutropenia resolved, received Granix was transfused 2 units PRBC on 02/24 Dr Logan Hemotologist following Monitor closely 5. Hypomagnesemia Continue Magox 400 mg po BID 6. History of Septic arthritis Left knee. on IV antibiotics since 01/24 cont Ancef IV q8 previous cultures from Left knee: MSSA family does not want further involvement of ID on the case faraz removed 7. 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 DVT Prophylaxis SCD No anticoag due to low platelet 9. Failure to thrive Continue Ensure Encourage po intake as much as possible Added Megace Overall, prognosis is poor Patient may be candidate for hospice moving forward
[2017-03-07] MEDS: ceFAZolin IV 2 gm in Dextrose 2 GM/50 ML BAG IVPB SCH ×2 (00:57→08:51)
[2017-03-07 07:58] LABS: BASO % 0.3 % (0.0-2.0); HEMATOCRIT 27.8 % (35.0-51.0); LYMPH # 1.1 K/uL (1.0-4.3); LYMPH % 12.6 % (20.0-40.0); MEAN CELL VOLUME 85.9 fl (80.0-94.0); MEAN CORPUSCULAR HGB CONC 33.8 g/dL (33.0-37.0); MEAN PLATELET VOLUME 7.9 fl (7.2-11.7); MONO # 0.1 K/uL (0.0-0.8); MONO % 1.7 % (0.0-10.0); NEUT # 7.4 K/uL (1.8-7.0); NEUT % 85.4 % (50.0-75.0); RED CELL DISTRIBUTION WIDTH 22.1 % (11.5-14.5); WHITE BLOOD COUNT 8.6 K/uL (4.8-10.8)
[2017-03-07] MEDS: Lactobacillus Acidophilus 500 MU Cap PO SCH ×2 (08:46→16:51)
[2017-03-07] MEDS: Megestrol Acetate 40 mg/ml Cup PO SCH (08:47)
[2017-03-07] MEDS: Potassium & Sodium Phosphate PO SCH (08:48)
[2017-03-07] MEDS: Pantoprazole 40 mg EC Tab PO SCH (08:48)
[2017-03-07] MEDS: Magnesium Oxide 400 mg Tab UD PO SCH ×2 (09:00→19:00)
[2017-03-07] MEDS: levETIRAcetam 100 mg/ml (5ml) Oral Syringe PO SCH ×2 (10:00→16:55)
--- NOTE | 2017-03-07 10:12 | CP.PCM.PN ---
Subjective - Date & Time of Evaluation Date of Evaluation: 03/07/17 Time of Evaluation: 10:09 - Subjective Subjective: Pt appears a little agitated today. He feels that his family has not come to see him in a long time. He will continue his Rt on thursday. His CBC is stable now but will keep an eye on it because he has had the count drop after the chemo. Objective - Vital Signs/Intake and Output Vital Signs (last 24 hours): Temp Pulse Resp BP Pulse Ox 97.4 F L 84 20 129/74 100 03/07/17 10:00 03/07/17 10:00 03/07/17 10:00 03/07/17 10:00 03/07/17 10:00 - Medications Medications: Current Medications Acetaminophen (Tylenol 325mg Tab) 650 mg PO Q6 PRN PRN Reason: Fever >100.4 F Last Admin: 03/06/17 02:49 Dose: 650 mg Acetaminophen (Tylenol 325mg Tab) 650 mg PO Q4 PRN PRN Reason: Pain, Mild (1-3) Camphor/Menthol (Bengay) 1 applic TOP QID PRN PRN Reason: Muscle spasm Dexamethasone (Decadron) 4 mg PO Q8@0600,1400,2200 [facility] Last Admin: 03/07/17 06:24 Dose: 4 mg Ferrous Sulfate (Feosol) 325 mg PO BID [facility] Last Admin: 03/07/17 08:46 Dose: 325 mg Cefazolin Sodium/Dextrose (Ancef Iv 2 Gm Duplex) 2 gm in 50 mls @ 50 mls/hr IVPB Q8H [facility] Last Admin: 03/07/17 08:51 Dose: 50 mls/hr Lactobacillus Acidophilus (Bacid Acidophilus) 1 cap PO BID [facility] Last Admin: 03/07/17 08:46 Dose: 1 cap Levetiracetam (Keppra) 500 mg PO BID [facility] Magnesium Oxide (Mag-Ox) 400 mg PO BID [facility] Last Admin: 03/06/17 18:13 Dose: 400 mg Megestrol Acetate (Megace) 400 mg PO DAILY [facility] Last Admin: 03/07/17 08:47 Dose: 400 mg Metoprolol Tartrate (Lopressor) 25 mg PO Q12 [facility] Last Admin: 03/07/17 08:47 Dose: 25 mg Nystatin (Nystop Topical Powder) 1 applic TOP TID [facility] Last Admin: 03/07/17 08:48 Dose: 1 unit Pantoprazole Sodium (Protonix Ec Tab) 40 mg PO DAILY [facility] Last Admin: 03/07/17 08:48 Dose: 40 mg Potassium Phos/Sodium Phos (Neutra-Phos) 1 pkt PO DAILY [facility] Last Admin: 03/07/17 08:48 Dose: 1 pkt Zolpidem Tartrate (Ambien) 5 mg PO HS PRN PRN Reason: Sleep Last Admin: 03/05/17 23:16 Dose: 5 mg - Labs Labs: 03/07/17 07:00
[2017-03-08 07:09] LABS: HEMATOCRIT 25.8 % (35.0-51.0); MEAN CELL VOLUME 85.4 fl (80.0-94.0); MEAN CORPUSCULAR HEMOGLOBIN 28.4 pg (27.0-31.0); MEAN CORPUSCULAR HGB CONC 33.2 g/dL (33.0-37.0); RED CELL DISTRIBUTION WIDTH 21.3 % (11.5-14.5); WHITE BLOOD COUNT 9.2 K/uL (4.8-10.8)
[2017-03-08 07:25] LABS: BLOOD UREA NITROGEN 31 mg/dl (9-20); CALCIUM 10.4 mg/dL (8.4-10.2); CARBON DIOXIDE 26 mmol/L (22-30); CHLORIDE 102 mmol/L (98-107); GFR AFRICAN-AMERICAN > 60; GLUCOSE,RANDOM 91 mg/dL (75-110); POTASSIUM 4.5 MMOL/L (3.6-5.0); SODIUM 137 mmol/l (132-148)
--- NOTE | 2017-03-08 08:51 | CP.PCM.PN ---
Subjective - Date & Time of Evaluation Date of Evaluation: 03/08/17 Time of Evaluation: 08:51 - Subjective Subjective: Awake and cooperative. Speech is more intelligible. At time he responds appropriately (verbally). Offers no complaints of cough or SOB. Breath sounds are diminished bilaterally w/o wheezes. Objective - Vital Signs/Intake and Output Vital Signs (last 24 hours): Temp Pulse Resp BP Pulse Ox 97.1 F L 100 H 20 126/92 H 98 03/08/17 08:19 03/08/17 08:19 03/08/17 08:19 03/08/17 08:19 03/08/17 08:19 - Medications Medications: Current Medications Acetaminophen (Tylenol 325mg Tab) 650 mg PO Q6 PRN PRN Reason: Fever >100.4 F Last Admin: 03/06/17 02:49 Dose: 650 mg Acetaminophen (Tylenol 325mg Tab) 650 mg PO Q4 PRN PRN Reason: Pain, Mild (1-3) Camphor/Menthol (Bengay) 1 applic TOP QID PRN PRN Reason: Muscle spasm Dexamethasone (Decadron) 4 mg PO Q8@0600,1400,2200 [facility] Last Admin: 03/08/17 05:24 Dose: 4 mg Ferrous Sulfate (Feosol) 325 mg PO BID [facility] Last Admin: 03/07/17 16:55 Dose: 325 mg Cefazolin Sodium 2 gm/ (Dextrose) 50 mls @ 50 mls/hr IVPB Q8 [facility] Last Admin: 03/08/17 00:24 Dose: 50 mls/hr Lactobacillus Acidophilus (Bacid Acidophilus) 1 cap PO BID [facility] Last Admin: 03/07/17 16:51 Dose: 1 cap Levetiracetam (Keppra) 500 mg PO BID [facility] Last Admin: 03/07/17 16:55 Dose: 500 mg Magnesium Oxide (Mag-Ox) 400 mg PO BID [facility] Last Admin: 03/07/17 19:00 Dose: 400 mg Megestrol Acetate (Megace) 400 mg PO DAILY [facility] Last Admin: 03/07/17 08:47 Dose: 400 mg Metoprolol Tartrate (Lopressor) 25 mg PO Q12 [facility] Last Admin: 03/07/17 21:47 Dose: 25 mg Nystatin (Nystop Topical Powder) 1 applic TOP TID [facility] Last Admin: 03/07/17 16:56 Dose: 1 unit Pantoprazole Sodium (Protonix Ec Tab) 40 mg PO DAILY [facility] Last Admin: 03/07/17 08:48 Dose: 40 mg Potassium Phos/Sodium Phos (Neutra-Phos) 1 pkt PO DAILY [facility] Last Admin: 03/07/17 08:48 Dose: 1 pkt Zolpidem Tartrate (Ambien) 5 mg PO HS PRN PRN Reason: Sleep Last Admin: 03/05/17 23:16 Dose: 5 mg - Labs Labs: 03/08/17 05:20 03/08/17 05:20
[2017-03-08] MEDS: Pantoprazole 40 mg EC Tab PO SCH (10:42)
[2017-03-08] MEDS: Magnesium Oxide 400 mg Tab UD PO SCH ×2 (10:43→17:26)
[2017-03-08] MEDS: Megestrol Acetate 40 mg/ml Cup PO SCH (10:43)
[2017-03-08] MEDS: Potassium & Sodium Phosphate PO SCH (10:44)
[2017-03-08] MEDS: Lactobacillus Acidophilus 500 MU Cap PO SCH ×2 (10:49→17:23)
--- NOTE | 2017-03-08 10:54 | CP.PCM.PN ---
Subjective - Date & Time of Evaluation Date of Evaluation: 03/08/17 Time of Evaluation: 10:54 - Subjective Subjective: Pt is a little tired after his trip for [place]. His hgb is 8.6gms,If the count drops further will transfuse. Objective - Vital Signs/Intake and Output Vital Signs (last 24 hours): Temp Pulse Resp BP Pulse Ox 97.1 F L 100 H 20 126/92 H 98 03/08/17 08:19 03/08/17 10:42 03/08/17 08:19 03/08/17 10:42 03/08/17 08:19 - Medications Medications: Current Medications Acetaminophen (Tylenol 325mg Tab) 650 mg PO Q6 PRN PRN Reason: Fever >100.4 F Last Admin: 03/06/17 02:49 Dose: 650 mg Acetaminophen (Tylenol 325mg Tab) 650 mg PO Q4 PRN PRN Reason: Pain, Mild (1-3) Camphor/Menthol (Bengay) 1 applic TOP QID PRN PRN Reason: Muscle spasm Dexamethasone (Decadron) 4 mg PO Q8@0600,1400,2200 [facility] Last Admin: 03/08/17 05:24 Dose: 4 mg Ferrous Sulfate (Feosol) 325 mg PO BID [facility] Last Admin: 03/08/17 10:42 Dose: 325 mg Cefazolin Sodium 2 gm/ (Dextrose) 50 mls @ 50 mls/hr IVPB Q8 [facility] Last Admin: 03/08/17 10:48 Dose: 50 mls/hr Lactobacillus Acidophilus (Bacid Acidophilus) 1 cap PO BID [facility] Last Admin: 03/08/17 10:49 Dose: 1 cap Levetiracetam (Keppra) 500 mg PO BID [facility] Last Admin: 03/07/17 16:55 Dose: 500 mg Magnesium Oxide (Mag-Ox) 400 mg PO BID [facility] Last Admin: 03/08/17 10:43 Dose: 400 mg Megestrol Acetate (Megace) 400 mg PO DAILY [facility] Last Admin: 03/08/17 10:43 Dose: 400 mg Metoprolol Tartrate (Lopressor) 25 mg PO Q12 [facility] Last Admin: 03/08/17 10:42 Dose: 25 mg Nystatin (Nystop Topical Powder) 1 applic TOP TID [facility] Last Admin: 03/08/17 10:49 Dose: 1 applic Pantoprazole Sodium (Protonix Ec Tab) 40 mg PO DAILY [facility] Last Admin: 03/08/17 10:42 Dose: 40 mg Potassium Phos/Sodium Phos (Neutra-Phos) 1 pkt PO DAILY [facility] Last Admin: 03/08/17 10:44 Dose: 1 pkt Zolpidem Tartrate (Ambien) 5 mg PO HS PRN PRN Reason: Sleep Last Admin: 03/05/17 23:16 Dose: 5 mg - Labs Labs: 03/08/17 05:20 03/08/17 05:20
[2017-03-08] MEDS: levETIRAcetam 100 mg/ml (5ml) Oral Syringe PO SCH ×2 (11:05→17:26)
[2017-03-09 06:03] LABS: BASO % 0.2 % (0.0-2.0); HEMATOCRIT 22.8 % (35.0-51.0); LYMPH # 0.8 K/uL (1.0-4.3); LYMPH % 8.6 % (20.0-40.0); MEAN CELL VOLUME 87.6 fl (80.0-94.0); MEAN CORPUSCULAR HEMOGLOBIN 28.6 pg (27.0-31.0); MEAN CORPUSCULAR HGB CONC 32.6 g/dL (33.0-37.0); MONO # 0.2 K/uL (0.0-0.8); MONO % 2.1 % (0.0-10.0); NEUT # 8.7 K/uL (1.8-7.0); NEUT % 89.1 % (50.0-75.0); PLATELET COUNT 182 K/uL (130-400); RED CELL DISTRIBUTION WIDTH 21.3 % (11.5-14.5); WHITE BLOOD COUNT 9.7 K/uL (4.8-10.8)
[2017-03-09] MEDS: levETIRAcetam 100 mg/ml (5ml) Oral Syringe PO SCH ×2 (10:21→17:48)
[2017-03-09] MEDS: Megestrol Acetate 40 mg/ml Cup PO SCH (10:21)
[2017-03-09] MEDS: Magnesium Oxide 400 mg Tab UD PO SCH ×2 (10:21→17:47)
[2017-03-09] MEDS: Pantoprazole 40 mg EC Tab PO SCH (10:21)
[2017-03-09] MEDS: Lactobacillus Acidophilus 500 MU Cap PO SCH ×2 (10:21→17:52)
[2017-03-09] MEDS: Potassium & Sodium Phosphate PO SCH (10:26)
--- NOTE | 2017-03-09 10:34 | CP.PCM.PN ---
Subjective - Date & Time of Evaluation Date of Evaluation: 03/09/17 Time of Evaluation: 10:32 - Subjective Subjective: Case discussed with heme/onc today. Will receive transfusion of PRBC's today and tomorrow. Returned from [place], awake and alert. Expressive aphasia still notable. Approaching end of IV antibiotic therapy. Will plan for extended PO antibiotic to start soon. Possibly long-term tetracycline/doxycycline would be a choice. Objective - Vital Signs/Intake and Output Vital Signs (last 24 hours): Temp Pulse Resp BP Pulse Ox 97.5 F L 98 H 20 123/70 99 03/09/17 08:05 03/09/17 08:05 03/09/17 08:05 03/09/17 08:05 03/09/17 08:05 - Medications Medications: Current Medications Acetaminophen (Tylenol 325mg Tab) 650 mg PO Q6 PRN PRN Reason: Fever >100.4 F Last Admin: 03/06/17 02:49 Dose: 650 mg Acetaminophen (Tylenol 325mg Tab) 650 mg PO Q4 PRN PRN Reason: Pain, Mild (1-3) Camphor/Menthol (Bengay) 1 applic TOP QID PRN PRN Reason: Muscle spasm Dexamethasone (Decadron) 4 mg PO Q8@0600,1400,2200 [facility] Last Admin: 03/09/17 05:57 Dose: 4 mg Ferrous Sulfate (Feosol) 325 mg PO BID [facility] Last Admin: 03/09/17 10:21 Dose: 325 mg Cefazolin Sodium 2 gm/ (Dextrose) 100 mls @ 100 mls/hr IVPB Q8 [facility] Last Admin: 03/09/17 10:25 Dose: 100 mls/hr Lactobacillus Acidophilus (Bacid Acidophilus) 1 cap PO BID [facility] Last Admin: 03/09/17 10:21 Dose: 1 cap Levetiracetam (Keppra) 500 mg PO BID [facility] Last Admin: 03/09/17 10:21 Dose: 500 mg Magnesium Oxide (Mag-Ox) 400 mg PO BID [facility] Last Admin: 03/09/17 10:21 Dose: 400 mg Megestrol Acetate (Megace) 400 mg PO DAILY [facility] Last Admin: 03/09/17 10:21 Dose: 400 mg Metoprolol Tartrate (Lopressor) 25 mg PO Q12 [facility] Last Admin: 03/09/17 10:22 Dose: 25 mg Nystatin (Nystop Topical Powder) 1 applic TOP TID [facility] Last Admin: 03/09/17 10:26 Dose: 1 applic Pantoprazole Sodium (Protonix Ec Tab) 40 mg PO DAILY [facility] Last Admin: 03/09/17 10:21 Dose: 40 mg Potassium Phos/Sodium Phos (Neutra-Phos) 1 pkt PO DAILY [facility] Last Admin: 03/09/17 10:26 Dose: 1 pkt Zolpidem Tartrate (Ambien) 5 mg PO HS PRN PRN Reason: Sleep Last Admin: 03/05/17 23:16 Dose: 5 mg - Labs Labs: 03/09/17 05:15 03/08/17 05:20
[2017-03-09 11:23] LABS: NEUTROPHIL 94 % (42-75); TOTAL CELLS COUNTED 100
[2017-03-10] MEDS: Magnesium Oxide 400 mg Tab UD PO SCH ×2 (08:11→19:02)
[2017-03-10] MEDS: Lactobacillus Acidophilus 500 MU Cap PO SCH ×2 (08:11→19:00)
[2017-03-10] MEDS: Potassium & Sodium Phosphate PO SCH (08:11)
[2017-03-10] MEDS: Pantoprazole 40 mg EC Tab PO SCH (08:12)
[2017-03-10] MEDS: Megestrol Acetate 40 mg/ml Cup PO SCH (08:13)
[2017-03-10] MEDS: levETIRAcetam 100 mg/ml (5ml) Oral Syringe PO SCH ×2 (08:13→19:02)
--- NOTE | 2017-03-10 16:24 | CP.PCM.PN ---
Subjective - Date & Time of Evaluation Date of Evaluation: 03/10/17 Time of Evaluation: 12:00 - Subjective Subjective: Patient was seen and examined today after going for radiation therapy. He has no complaints today. He did seem more coherent today although he remains confused at times. No overnight events as per nursing staff. Objective - Vital Signs/Intake and Output Vital Signs (last 24 hours): Temp Pulse Resp BP Pulse Ox 97.0 F L 92 H 20 106/85 99 03/10/17 07:57 03/10/17 08:12 03/10/17 07:57 03/10/17 08:12 03/10/17 07:57 - Medications Medications: Current Medications Acetaminophen (Tylenol 325mg Tab) 650 mg PO Q6 PRN PRN Reason: Fever >100.4 F Last Admin: 03/06/17 02:49 Dose: 650 mg Acetaminophen (Tylenol 325mg Tab) 650 mg PO Q4 PRN PRN Reason: Pain, Mild (1-3) Camphor/Menthol (Bengay) 1 applic TOP QID PRN PRN Reason: Muscle spasm Dexamethasone (Decadron Inj) 4 mg IVP Q12 [facility] Ferrous Sulfate (Feosol) 325 mg PO BID [facility] Last Admin: 03/10/17 08:11 Dose: 325 mg Cefazolin Sodium 2 gm/ (Dextrose) 100 mls @ 100 mls/hr IVPB Q8 [facility] Last Admin: 03/10/17 10:50 Dose: 100 mls/hr Lactobacillus Acidophilus (Bacid Acidophilus) 1 cap PO BID [facility] Last Admin: 03/10/17 08:11 Dose: 1 cap Levetiracetam (Keppra) 500 mg PO BID [facility] Last Admin: 03/10/17 08:13 Dose: 500 mg Magnesium Oxide (Mag-Ox) 400 mg PO BID [facility] Last Admin: 03/10/17 08:11 Dose: 400 mg Megestrol Acetate (Megace) 400 mg PO DAILY [facility] Last Admin: 03/10/17 08:13 Dose: 400 mg Metoprolol Tartrate (Lopressor) 25 mg PO Q12 [facility] Last Admin: 03/10/17 08:12 Dose: 25 mg Nystatin (Nystop Topical Powder) 1 applic TOP TID [facility] Last Admin: 03/10/17 14:41 Dose: Not Given Pantoprazole Sodium (Protonix Ec Tab) 40 mg PO DAILY [facility] Last Admin: 03/10/17 08:12 Dose: 40 mg Potassium Phos/Sodium Phos (Neutra-Phos) 1 pkt PO DAILY [facility] Last Admin: 03/10/17 08:11 Dose: 1 pkt Zolpidem Tartrate (Ambien) 5 mg PO HS PRN PRN Reason: Sleep Last Admin: 03/05/17 23:16 Dose: 5 mg - Labs Labs: 03/09/17 05:15 03/08/17 05:20 - Additional Findings Additional findings: Constitutional- cooperative, awake, alert. Head- NCAT, PERRL Eye- PERRL, normal accommodation ENT- normal exam, MMM. 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 Upon workup found to have metastatic brain lesion. He was started on radiation therapy, Decadron. He was transferred back to TCU for further reconditioning and physical therapy. 1. Generalized weakness and deconditioning Patient is 2 people assist Continue physical therapy while in TCU 2. Metastatic Brain Lesion Ct head showed 1.3x 1.6 cm lesion of left posterior parietal lobe with edema At present with slurred speech,sometimes confused Neurology consulted. 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 Anemia and Thrombocytopenia sec to Chemotherapy Neutropenia resolved, received Granix was transfused 2 units PRBC on 02/24 Dr Logan Hemotologist following Monitor closely 5. Hypomagnesemia Continue Magox 400 mg po BID 6. History of Septic arthritis Left knee. on IV antibiotics since 01/24 cont Ancef IV q8 previous cultures from Left knee: MSSA family does not want further involvement of ID on the case faraz removed 7. 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 DVT Prophylaxis SCD No anticoag due to low platelet 9. Failure to thrive Continue Ensure Encourage po intake as much as possible Added Megace Overall, prognosis is poor Patient may be candidate for hospice moving forward
[2017-03-10] MEDS ORDERED: Dexamethasone 4 MG in Sodium Chloride 0.9% 50 ML IVPB SCH (21:00)
[2017-03-10] MEDS ORDERED: Dexamethasone 4 mg/1 ml IVP SCH (21:00)
[2017-03-11 05:19] LABS: HEMATOCRIT 17.7 % (35.0-51.0); MEAN CELL VOLUME 90.9 fl (80.0-94.0); MEAN CORPUSCULAR HGB CONC 32.9 g/dL (33.0-37.0); RED CELL DISTRIBUTION WIDTH 18.6 % (11.5-14.5)
[2017-03-11 05:34] LABS: WHITE BLOOD COUNT 5.6 K/uL (4.8-10.8)
[2017-03-11 06:18] LABS: HEMATOCRIT 26.7 % (35.0-51.0); MEAN CELL VOLUME 89.6 fl (80.0-94.0); MEAN CORPUSCULAR HEMOGLOBIN 29.5 pg (27.0-31.0); MEAN CORPUSCULAR HGB CONC 32.9 g/dL (33.0-37.0); RED CELL DISTRIBUTION WIDTH 18.6 % (11.5-14.5); WHITE BLOOD COUNT 8.6 K/uL (4.8-10.8)
[2017-03-11] MEDS: Lactobacillus Acidophilus 500 MU Cap PO SCH ×2 (08:41→16:32)
[2017-03-11] MEDS: Magnesium Oxide 400 mg Tab UD PO SCH ×2 (08:42→16:33)
[2017-03-11] MEDS: Potassium & Sodium Phosphate PO SCH (08:42)
[2017-03-11] MEDS: levETIRAcetam 100 mg/ml (5ml) Oral Syringe PO SCH ×2 (08:42→16:33)
[2017-03-11] MEDS: Megestrol Acetate 40 mg/ml Cup PO SCH (08:43)
[2017-03-11] MEDS: Pantoprazole 40 mg EC Tab PO SCH (08:44)
--- NOTE | 2017-03-11 10:05 | CP.PCM.PN ---
Subjective - Date & Time of Evaluation Date of Evaluation: 03/11/17 Time of Evaluation: 10:01 - Subjective Subjective: Supine in bed,asleep. Easily awakened. Appears comfortable at rest. Speech is more fluent, seems to answer questions more appropriately. Transfused two units of PRBC's yesterday. Hemoglobin improved to 8.8GM this morning. Has now completed RT of the brain. Will request decision on antibiotics; and hopefully can be switched to PO. Followup Hgb/Hct on Thursday. Objective - Vital Signs/Intake and Output Vital Signs (last 24 hours): Temp Pulse Resp BP Pulse Ox 97.9 F 90 20 143/66 99 03/11/17 08:11 03/11/17 08:43 03/11/17 08:11 03/11/17 08:43 03/11/17 08:11 - Medications Medications: Current Medications Acetaminophen (Tylenol 325mg Tab) 650 mg PO Q6 PRN PRN Reason: Fever >100.4 F Last Admin: 03/06/17 02:49 Dose: 650 mg Acetaminophen (Tylenol 325mg Tab) 650 mg PO Q4 PRN PRN Reason: Pain, Mild (1-3) Last Admin: 03/10/17 19:14 Dose: 650 mg Camphor/Menthol (Bengay) 1 applic TOP QID PRN PRN Reason: Muscle spasm Dexamethasone (Decadron) 4 mg PO Q12 [facility] Last Admin: 03/11/17 08:42 Dose: 4 mg Ferrous Sulfate (Feosol) 325 mg PO BID [facility] Last Admin: 03/11/17 08:43 Dose: 325 mg Cefazolin Sodium 2 gm/ (Dextrose) 100 mls @ 100 mls/hr IVPB Q8 [facility] Last Admin: 03/11/17 08:41 Dose: 100 mls/hr Lactobacillus Acidophilus (Bacid Acidophilus) 1 cap PO BID [facility] Last Admin: 03/11/17 08:41 Dose: 1 cap Levetiracetam (Keppra) 500 mg PO BID [facility] Last Admin: 03/11/17 08:42 Dose: 500 mg Magnesium Oxide (Mag-Ox) 400 mg PO BID [facility] Last Admin: 03/11/17 08:42 Dose: 400 mg Megestrol Acetate (Megace) 400 mg PO DAILY [facility] Last Admin: 03/11/17 08:43 Dose: 400 mg Metoprolol Tartrate (Lopressor) 25 mg PO Q12 [facility] Last Admin: 03/11/17 08:43 Dose: 25 mg Nystatin (Nystop Topical Powder) 1 applic TOP TID [facility] Last Admin: 03/11/17 08:55 Dose: 1 applic Pantoprazole Sodium (Protonix Ec Tab) 40 mg PO DAILY [facility] Last Admin: 03/11/17 08:44 Dose: 40 mg Potassium Phos/Sodium Phos (Neutra-Phos) 1 pkt PO DAILY [facility] Last Admin: 03/11/17 08:42 Dose: 1 pkt Zolpidem Tartrate (Ambien) 5 mg PO HS PRN PRN Reason: Sleep Last Admin: 03/05/17 23:16 Dose: 5 mg - Labs Labs: 03/11/17 06:00 03/08/17 05:20
--- NOTE | 2017-03-11 11:19 | CP.PCM.PN ---
Subjective - Date & Time of Evaluation Date of Evaluation: 03/11/17 Time of Evaluation: 11:18 - Subjective Subjective: Orthopedic follow up Dr. Del Angel Recommendation per Dr. Del Angel was for 6 weeks IV antibiotics, then chronic PO suppression x 1 year due to +cx S. aureus from 3 of knee fluid cultures taken intraoperatively 01/29/2017. Patient is still on IV ancef, and it appears per the records that he had been continued on the ancef during this time. He has now completed 6 week course of IV, and per Dr. Del Angel recommendations patient can be switched to PO medication as per ID or Dr. Rodriguez. Patient answers questions, denies pain in his knee. Objective - Vital Signs/Intake and Output Vital Signs (last 24 hours): Temp Pulse Resp BP Pulse Ox 97.9 F 90 20 143/66 99 03/11/17 08:11 03/11/17 08:43 03/11/17 08:11 03/11/17 08:43 03/11/17 08:11 - Medications Medications: Current Medications Acetaminophen (Tylenol 325mg Tab) 650 mg PO Q6 PRN PRN Reason: Fever >100.4 F Last Admin: 03/06/17 02:49 Dose: 650 mg Acetaminophen (Tylenol 325mg Tab) 650 mg PO Q4 PRN PRN Reason: Pain, Mild (1-3) Last Admin: 03/10/17 19:14 Dose: 650 mg Camphor/Menthol (Bengay) 1 applic TOP QID PRN PRN Reason: Muscle spasm Dexamethasone (Decadron) 4 mg PO Q12 [facility] Last Admin: 03/11/17 08:42 Dose: 4 mg Ferrous Sulfate (Feosol) 325 mg PO BID [facility] Last Admin: 03/11/17 08:43 Dose: 325 mg Cefazolin Sodium/Dextrose (Ancef Iv 2 Gm Duplex) 2 gm in 50 mls @ 50 mls/hr IVPB Q8 [facility] Lactobacillus Acidophilus (Bacid Acidophilus) 1 cap PO BID [facility] Last Admin: 03/11/17 08:41 Dose: 1 cap Levetiracetam (Keppra) 500 mg PO BID [facility] Last Admin: 03/11/17 08:42 Dose: 500 mg Magnesium Oxide (Mag-Ox) 400 mg PO BID [facility] Last Admin: 03/11/17 08:42 Dose: 400 mg Megestrol Acetate (Megace) 400 mg PO DAILY [facility] Last Admin: 03/11/17 08:43 Dose: 400 mg Metoprolol Tartrate (Lopressor) 25 mg PO Q12 [facility] Last Admin: 03/11/17 08:43 Dose: 25 mg Nystatin (Nystop Topical Powder) 1 applic TOP TID [facility] Last Admin: 03/11/17 08:55 Dose: 1 applic Pantoprazole Sodium (Protonix Ec Tab) 40 mg PO DAILY [facility] Last Admin: 03/11/17 08:44 Dose: 40 mg Potassium Phos/Sodium Phos (Neutra-Phos) 1 pkt PO DAILY [facility] Last Admin: 03/11/17 08:42 Dose: 1 pkt Zolpidem Tartrate (Ambien) 5 mg PO HS PRN PRN Reason: Sleep Last Admin: 03/05/17 23:16 Dose: 5 mg - Labs Labs: 03/11/17 06:00 03/08/17 05:20 - Extremities Exam Additional comments: Left knee: No erythema, no effusion, not warm. Pain free ROM. No suspicion of recurrence of sepsis. Assessment and Plan (1) Knee effusion, left Assessment & Plan: +MSSA from left knee cx 01/29/2017 completed 6 weeks of IV ancef per Dr. Del Angel, PO suppression x 1 year at this time as per Dr. Rodriguez/ID cont PT/OT LM Dr. Rodriguez's office regarding above ex- at beside, explained antibiotics and plan, agrees with plan and questions answered Status: Acute
--- NOTE | 2017-03-11 15:20 | CP.PCM.PN ---
Subjective - Date & Time of Evaluation Date of Evaluation: 03/11/17 Time of Evaluation: 15:20 - Subjective Subjective: I D NOTE HAVE DISCONTINUED ANCEF RX;AUGMENTIN 875 PO BID [facility] Objective - Vital Signs/Intake and Output Vital Signs (last 24 hours): Temp Pulse Resp BP Pulse Ox 97.9 F 90 20 143/66 99 03/11/17 08:11 03/11/17 08:43 03/11/17 08:11 03/11/17 08:43 03/11/17 08:11 - Medications Medications: Current Medications Acetaminophen (Tylenol 325mg Tab) 650 mg PO Q6 PRN PRN Reason: Fever >100.4 F Last Admin: 03/06/17 02:49 Dose: 650 mg Acetaminophen (Tylenol 325mg Tab) 650 mg PO Q4 PRN PRN Reason: Pain, Mild (1-3) Last Admin: 03/10/17 19:14 Dose: 650 mg Amoxicillin/Clavulanate Potassium (Augmentin 875 Mg-125 Mg Tab) 1 tab PO Q12 [facility] PRN Reason: Protocol Camphor/Menthol (Bengay) 1 applic TOP QID PRN PRN Reason: Muscle spasm Dexamethasone (Decadron) 4 mg PO Q12 [facility] Last Admin: 03/11/17 08:42 Dose: 4 mg Ferrous Sulfate (Feosol) 325 mg PO BID [facility] Last Admin: 03/11/17 08:43 Dose: 325 mg Lactobacillus Acidophilus (Bacid Acidophilus) 1 cap PO BID [facility] Last Admin: 03/11/17 08:41 Dose: 1 cap Levetiracetam (Keppra) 500 mg PO BID [facility] Last Admin: 03/11/17 08:42 Dose: 500 mg Magnesium Oxide (Mag-Ox) 400 mg PO BID [facility] Last Admin: 03/11/17 08:42 Dose: 400 mg Megestrol Acetate (Megace) 400 mg PO DAILY [facility] Last Admin: 03/11/17 08:43 Dose: 400 mg Metoprolol Tartrate (Lopressor) 25 mg PO Q12 [facility] Last Admin: 03/11/17 08:43 Dose: 25 mg Nystatin (Nystop Topical Powder) 1 applic TOP TID [facility] Last Admin: 03/11/17 14:00 Dose: 1 applic Pantoprazole Sodium (Protonix Ec Tab) 40 mg PO DAILY [facility] Last Admin: 03/11/17 08:44 Dose: 40 mg Potassium Phos/Sodium Phos (Neutra-Phos) 1 pkt PO DAILY [facility] Last Admin: 03/11/17 08:42 Dose: 1 pkt Zolpidem Tartrate (Ambien) 5 mg PO HS PRN PRN Reason: Sleep Last Admin: 03/05/17 23:16 Dose: 5 mg - Labs Labs: 03/11/17 06:00 03/08/17 05:20
[2017-03-11] MEDS ORDERED: ceFAZolin IV 2 gm in Dextrose 2 GM/50 ML BAG IVPB SCH (17:00)
[2017-03-11] MEDS: Amoxicillin-Clav 875-125 mg Tab PO SCH (21:44)
[2017-03-12] MEDS ORDERED: Magnesium Hydroxide Susp 30 ml UD PO PRN (07:09)
--- NOTE | 2017-03-12 07:47 | CP.PCM.PN ---
Subjective - Date & Time of Evaluation Date of Evaluation: 03/12/17 Time of Evaluation: 09:30 - Subjective Subjective: Patient seen and examined bedside. Lying in bed comfortable in NAD .Awake, alert ,with difficulty understanding and following commands , with incomprehensible speech. Hemodynamically stable, afebrile Objective - Vital Signs/Intake and Output Vital Signs (last 24 hours): Temp Pulse Resp BP Pulse Ox 97.1 F L 91 H 20 133/74 100 03/12/17 07:38 03/12/17 07:38 03/12/17 07:38 03/12/17 07:38 03/12/17 07:38 - Medications Medications: Current Medications Acetaminophen (Tylenol 325mg Tab) 650 mg PO Q6 PRN PRN Reason: Fever >100.4 F Last Admin: 03/06/17 02:49 Dose: 650 mg Acetaminophen (Tylenol 325mg Tab) 650 mg PO Q4 PRN PRN Reason: Pain, Mild (1-3) Last Admin: 03/10/17 19:14 Dose: 650 mg Amoxicillin/Clavulanate Potassium (Augmentin 875 Mg-125 Mg Tab) 1 tab PO Q12 [facility] PRN Reason: Protocol Last Admin: 03/11/17 21:44 Dose: 1 tab Camphor/Menthol (Bengay) 1 applic TOP QID PRN PRN Reason: Muscle spasm Dexamethasone (Decadron) 4 mg PO Q12 [facility] Last Admin: 03/11/17 21:44 Dose: 4 mg Docusate Sodium (Colace) 100 mg PO BID [facility] Ferrous Sulfate (Feosol) 325 mg PO BID [facility] Last Admin: 03/11/17 16:34 Dose: 325 mg Lactobacillus Acidophilus (Bacid Acidophilus) 1 cap PO BID [facility] Last Admin: 03/11/17 16:32 Dose: 1 cap Levetiracetam (Keppra) 500 mg PO BID [facility] Last Admin: 03/11/17 16:33 Dose: 500 mg Magnesium Hydroxide (Milk Of Magnesia) 30 ml PO DAILY PRN PRN Reason: Other Magnesium Oxide (Mag-Ox) 400 mg PO BID [facility] Last Admin: 03/11/17 16:33 Dose: 400 mg Megestrol Acetate (Megace) 400 mg PO DAILY [facility] Last Admin: 03/11/17 08:43 Dose: 400 mg Metoprolol Tartrate (Lopressor) 25 mg PO Q12 [facility] Last Admin: 03/11/17 21:44 Dose: 25 mg Nystatin (Nystop Topical Powder) 1 applic TOP TID [facility] Last Admin: 03/11/17 16:32 Dose: 1 applic Pantoprazole Sodium (Protonix Ec Tab) 40 mg PO DAILY [facility] Last Admin: 03/11/17 08:44 Dose: 40 mg Potassium Phos/Sodium Phos (Neutra-Phos) 1 pkt PO DAILY [facility] Last Admin: 03/11/17 08:42 Dose: 1 pkt Zolpidem Tartrate (Ambien) 5 mg PO HS PRN PRN Reason: Sleep Last Admin: 03/12/17 00:00 Dose: 5 mg - Labs Labs: 03/11/17 06:00 03/08/17 05:20 - Constitutional Appears: Non-toxic, No Acute Distress - Head Exam Head Exam: ATRAUMATIC, NORMOCEPHALIC - Eye Exam Eye Exam: EOMI, Normal appearance, PERRL Pupil Exam: NORMAL ACCOMODATION - ENT Exam ENT Exam: Mucous Membranes Moist, Normal Exam - Neck Exam Neck Exam: Full ROM, Normal Inspection - Respiratory Exam Respiratory Exam: Clear to Ausculation Bilateral, NORMAL BREATHING PATTERN. absent: Rhonchi, Wheezes - Cardiovascular Exam Cardiovascular Exam: REGULAR RHYTHM, +S1, +S2. absent: JVD - GI/Abdominal Exam GI & Abdominal Exam: Soft, Normal Bowel Sounds. absent: Distended, Guarding, Tenderness, Rebound - Rectal Exam Rectal Exam: Deferred - Extremities Exam Extremities Exam: Full ROM, Normal Capillary Refill, Normal Inspection. 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 Upon workup found to have metastatic brain lesion. He was started on radiation therapy, Decadron. He was transferred back to TCU for further reconditioning and physical therapy. 1. Generalized weakness and deconditioning Continue physical therapy while in TCU will need to be discharged to [facility] or home 2. Metastatic Brain Lesion Ct head showed 1.3x 1.6 cm lesion of left posterior parietal lobe with edema At present with slurred speech,sometimes confused Neurology consulted. Case was discussed with Dr Shine who recommended Decadron for edema and Keppra for seizure proph on Decadron 4 mg IV Q8 PO Finished palliative radiation therapy continue PT,OT ,Speech therapy 3. [place] Cell Cancer with metastasis to lung and brain Dr Logan Oncologist following next cycle in 2 weeks Finished radiation therapy monitor closely for pancytopenia 4. Anemia and Thrombocytopenia sec to Chemotherapy Neutropenia resolved, received Granix was transfused 2 units PRBC on 02/24 Dr Logan Hemotologist following Monitor closely 5. Hypomagnesemia Continue Magox 400 mg po BID 6. History of Septic arthritis Left knee. on IV antibiotics since 01/24 . Finished 6 weeks of Iv antibiotics ( Ancef) Will d/c Ancef and started on Augmentin Po suppressive therapy for 1 year as per MEHREEN , Dr. Mcdonnell previous cultures from Left knee: MSSA faraz removed Cleared by ortho for discharge with above recommendations 7. 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 DVT Prophylaxis SCD No anticoag due to low platelet 9. Failure to thrive Continue Ensure Encourage po intake as much as possible Added Megace
[2017-03-12] MEDS: Potassium & Sodium Phosphate PO SCH (09:56)
[2017-03-12] MEDS: Megestrol Acetate 40 mg/ml Cup PO SCH (09:56)
[2017-03-12] MEDS: levETIRAcetam 100 mg/ml (5ml) Oral Syringe PO SCH ×2 (09:56→16:57)
[2017-03-12] MEDS: Magnesium Oxide 400 mg Tab UD PO SCH ×2 (09:57→16:57)
[2017-03-12] MEDS: Amoxicillin-Clav 875-125 mg Tab PO SCH ×2 (09:57→22:05)
[2017-03-12] MEDS: Pantoprazole 40 mg EC Tab PO SCH (09:57)
[2017-03-12] MEDS: Lactobacillus Acidophilus 500 MU Cap PO SCH ×2 (12:39→16:57)
[2017-03-13 06:45] LABS: HEMATOCRIT 26.9 % (35.0-51.0); MEAN CELL VOLUME 90.5 fl (80.0-94.0); MEAN CORPUSCULAR HEMOGLOBIN 30.5 pg (27.0-31.0); MEAN CORPUSCULAR HGB CONC 33.7 g/dL (33.0-37.0); RED CELL DISTRIBUTION WIDTH 18.5 % (11.5-14.5)
[2017-03-13] MEDS: Magnesium Oxide 400 mg Tab UD PO SCH ×2 (09:05→17:08)
[2017-03-13] MEDS: Amoxicillin-Clav 875-125 mg Tab PO SCH ×2 (09:05→20:14)
[2017-03-13] MEDS: Potassium & Sodium Phosphate PO SCH (09:06)
[2017-03-13] MEDS: Pantoprazole 40 mg EC Tab PO SCH (09:06)
[2017-03-13] MEDS: levETIRAcetam 100 mg/ml (5ml) Oral Syringe PO SCH ×2 (09:07→17:07)
[2017-03-13] MEDS: Megestrol Acetate 40 mg/ml Cup PO SCH (09:07)
[2017-03-13] MEDS: Lactobacillus Acidophilus 500 MU Cap PO SCH ×2 (09:08→17:08)
--- NOTE | 2017-03-13 09:17 | CP.PCM.PN ---
Subjective - Date & Time of Evaluation Date of Evaluation: 03/13/17 Time of Evaluation: 09:15 - Subjective Subjective: Continues to become more disoriented and confused at night. Has completed radiation treatments and another cycle of chemo. Antibiotics have been changed from parenteral to oral (augmentin). May need Neurology input for further assistance. Objective - Vital Signs/Intake and Output Vital Signs (last 24 hours): Temp Pulse Resp BP Pulse Ox 96.8 F L 93 H 20 140/85 97 03/13/17 08:23 03/13/17 09:06 03/13/17 08:23 03/13/17 09:06 03/13/17 08:23 - Medications Medications: Current Medications Acetaminophen (Tylenol 325mg Tab) 650 mg PO Q6 PRN PRN Reason: Fever >100.4 F Last Admin: 03/06/17 02:49 Dose: 650 mg Acetaminophen (Tylenol 325mg Tab) 650 mg PO Q4 PRN PRN Reason: Pain, Mild (1-3) Last Admin: 03/10/17 19:14 Dose: 650 mg Amoxicillin/Clavulanate Potassium (Augmentin 875 Mg-125 Mg Tab) 1 tab PO Q12 [facility] PRN Reason: Protocol Last Admin: 03/13/17 09:05 Dose: 1 tab Camphor/Menthol (Bengay) 1 applic TOP QID PRN PRN Reason: Muscle spasm Dexamethasone (Decadron) 4 mg PO Q12 [facility] Last Admin: 03/13/17 09:05 Dose: 4 mg Docusate Sodium (Colace) 100 mg PO BID [facility] Last Admin: 03/13/17 09:06 Dose: 100 mg Ferrous Sulfate (Feosol) 325 mg PO BID [facility] Last Admin: 03/13/17 09:05 Dose: 325 mg Lactobacillus Acidophilus (Bacid Acidophilus) 1 cap PO BID [facility] Last Admin: 03/13/17 09:08 Dose: 1 cap Levetiracetam (Keppra) 500 mg PO BID [facility] Last Admin: 03/13/17 09:07 Dose: 500 mg Magnesium Hydroxide (Milk Of Magnesia) 30 ml PO DAILY PRN PRN Reason: Other Magnesium Oxide (Mag-Ox) 400 mg PO BID [facility] Last Admin: 03/13/17 09:05 Dose: 400 mg Megestrol Acetate (Megace) 400 mg PO DAILY [facility] Last Admin: 03/13/17 09:07 Dose: 400 mg Metoprolol Tartrate (Lopressor) 25 mg PO Q12 [facility] Last Admin: 03/13/17 09:06 Dose: 25 mg Nystatin (Nystop Topical Powder) 1 applic TOP TID [facility] Last Admin: 03/13/17 09:07 Dose: 1 applic Pantoprazole Sodium (Protonix Ec Tab) 40 mg PO DAILY [facility] Last Admin: 03/13/17 09:06 Dose: 40 mg Potassium Phos/Sodium Phos (Neutra-Phos) 1 pkt PO DAILY [facility] Last Admin: 03/13/17 09:06 Dose: 1 pkt Zolpidem Tartrate (Ambien) 5 mg PO HS PRN PRN Reason: Sleep Last Admin: 03/13/17 00:01 Dose: 5 mg - Labs Labs: 03/13/17 06:34 03/08/17 05:20
--- NOTE | 2017-03-13 12:28 | CP.PCM.PN ---
Subjective - Date & Time of Evaluation Date of Evaluation: 03/13/17 Time of Evaluation: 12:27 - Subjective Subjective: Pt is a little more awake but is also very confused.he suddenly starts yelling , but in a little while is calm again and answersquestions quite accurately. Objective - Vital Signs/Intake and Output Vital Signs (last 24 hours): Temp Pulse Resp BP Pulse Ox 96.8 F L 93 H 20 140/85 97 03/13/17 10:00 03/13/17 10:00 03/13/17 10:00 03/13/17 10:00 03/13/17 10:00 - Medications Medications: Current Medications Acetaminophen (Tylenol 325mg Tab) 650 mg PO Q6 PRN PRN Reason: Fever >100.4 F Last Admin: 03/06/17 02:49 Dose: 650 mg Acetaminophen (Tylenol 325mg Tab) 650 mg PO Q4 PRN PRN Reason: Pain, Mild (1-3) Last Admin: 03/10/17 19:14 Dose: 650 mg Amoxicillin/Clavulanate Potassium (Augmentin 875 Mg-125 Mg Tab) 1 tab PO Q12 [facility] PRN Reason: Protocol Last Admin: 03/13/17 09:05 Dose: 1 tab Camphor/Menthol (Bengay) 1 applic TOP QID PRN PRN Reason: Muscle spasm Dexamethasone (Decadron) 4 mg PO Q12 [facility] Last Admin: 03/13/17 09:05 Dose: 4 mg Docusate Sodium (Colace) 100 mg PO BID [facility] Last Admin: 03/13/17 09:06 Dose: 100 mg Ferrous Sulfate (Feosol) 325 mg PO BID [facility] Last Admin: 03/13/17 09:05 Dose: 325 mg Lactobacillus Acidophilus (Bacid Acidophilus) 1 cap PO BID [facility] Last Admin: 03/13/17 09:08 Dose: 1 cap Levetiracetam (Keppra) 500 mg PO BID [facility] Last Admin: 03/13/17 09:07 Dose: 500 mg Magnesium Hydroxide (Milk Of Magnesia) 30 ml PO DAILY PRN PRN Reason: Other Magnesium Oxide (Mag-Ox) 400 mg PO BID [facility] Last Admin: 03/13/17 09:05 Dose: 400 mg Megestrol Acetate (Megace) 400 mg PO DAILY [facility] Last Admin: 03/13/17 09:07 Dose: 400 mg Metoprolol Tartrate (Lopressor) 25 mg PO Q12 [facility] Last Admin: 03/13/17 09:06 Dose: 25 mg Nystatin (Nystop Topical Powder) 1 applic TOP TID [facility] Last Admin: 03/13/17 09:07 Dose: 1 applic Pantoprazole Sodium (Protonix Ec Tab) 40 mg PO DAILY [facility] Last Admin: 03/13/17 09:06 Dose: 40 mg Potassium Phos/Sodium Phos (Neutra-Phos) 1 pkt PO DAILY [facility] Last Admin: 03/13/17 09:06 Dose: 1 pkt Zolpidem Tartrate (Ambien) 5 mg PO HS PRN PRN Reason: Sleep Last Admin: 03/13/17 00:01 Dose: 5 mg - Labs Labs: 03/13/17 06:34 03/08/17 05:20
[2017-03-14] MEDS: Magnesium Oxide 400 mg Tab UD PO SCH ×2 (09:12→16:42)
[2017-03-14] MEDS: Amoxicillin-Clav 875-125 mg Tab PO SCH ×2 (09:12→20:23)
[2017-03-14] MEDS: levETIRAcetam 100 mg/ml (5ml) Oral Syringe PO SCH ×2 (09:12→16:42)
[2017-03-14] MEDS: Potassium & Sodium Phosphate PO SCH (09:14)
[2017-03-14] MEDS: Lactobacillus Acidophilus 500 MU Cap PO SCH ×2 (09:14→16:41)
[2017-03-14] MEDS: Pantoprazole 40 mg EC Tab PO SCH (09:15)
[2017-03-14] MEDS: Megestrol Acetate 40 mg/ml Cup PO SCH (09:15)
[2017-03-15] MEDS: Megestrol Acetate 40 mg/ml Cup PO SCH (08:18)
[2017-03-15] MEDS: Magnesium Oxide 400 mg Tab UD PO SCH ×2 (08:19→16:46)
[2017-03-15] MEDS: Amoxicillin-Clav 875-125 mg Tab PO SCH ×2 (08:19→20:13)
[2017-03-15] MEDS: Pantoprazole 40 mg EC Tab PO SCH (08:19)
[2017-03-15] MEDS: Potassium & Sodium Phosphate PO SCH (08:19)
[2017-03-15] MEDS: Lactobacillus Acidophilus 500 MU Cap PO SCH ×2 (08:23→16:45)
--- NOTE | 2017-03-15 13:58 | CP.PCM.PN ---
Subjective - Date & Time of Evaluation Date of Evaluation: 03/15/17 Time of Evaluation: 13:53 - Subjective Subjective: Pt seems much calmer today. he is answering questions quite clearly. He is to be transferred to the residential tomorrow, and will return on mar 23 for chemo. Objective - Vital Signs/Intake and Output Vital Signs (last 24 hours): Temp Pulse Resp BP Pulse Ox 98.2 F 92 H 20 124/79 97 03/15/17 10:00 03/15/17 10:00 03/15/17 10:00 03/15/17 10:00 03/15/17 10:00 - Medications Medications: Current Medications Acetaminophen (Tylenol 325mg Tab) 650 mg PO Q6 PRN PRN Reason: Fever >100.4 F Last Admin: 03/06/17 02:49 Dose: 650 mg Acetaminophen (Tylenol 325mg Tab) 650 mg PO Q4 PRN PRN Reason: Pain, Mild (1-3) Last Admin: 03/13/17 20:07 Dose: 650 mg Amoxicillin/Clavulanate Potassium (Augmentin 875 Mg-125 Mg Tab) 1 tab PO Q12 [facility] PRN Reason: Protocol Last Admin: 03/15/17 08:19 Dose: 1 tab Camphor/Menthol (Bengay) 1 applic TOP QID PRN PRN Reason: Muscle spasm Dexamethasone (Decadron) 4 mg PO Q12 [facility] Last Admin: 03/15/17 08:19 Dose: 4 mg Docusate Sodium (Colace) 100 mg PO BID [facility] Last Admin: 03/15/17 08:19 Dose: 100 mg Ferrous Sulfate (Feosol) 325 mg PO BID [facility] Last Admin: 03/15/17 08:19 Dose: 325 mg Ibuprofen (Motrin Tab) 800 mg PO Q8 PRN PRN Reason: Pain, severe (8-10) Last Admin: 03/15/17 12:47 Dose: 800 mg Lactobacillus Acidophilus (Bacid Acidophilus) 1 cap PO BID [facility] Last Admin: 03/15/17 08:23 Dose: 1 cap Levetiracetam (Keppra) 500 mg PO BID [facility] Last Admin: 03/15/17 08:19 Dose: 500 mg Magnesium Hydroxide (Milk Of Magnesia) 30 ml PO DAILY PRN PRN Reason: Other Magnesium Oxide (Mag-Ox) 400 mg PO BID [facility] Last Admin: 03/15/17 08:19 Dose: 400 mg Megestrol Acetate (Megace) 400 mg PO DAILY [facility] Last Admin: 03/15/17 08:18 Dose: 400 mg Metoprolol Tartrate (Lopressor) 25 mg PO Q12 [facility] Last Admin: 03/15/17 08:19 Dose: 25 mg Nystatin (Nystop Topical Powder) 1 applic TOP TID [facility] Last Admin: 03/15/17 12:47 Dose: 1 applic Pantoprazole Sodium (Protonix Ec Tab) 40 mg PO DAILY [facility] Last Admin: 03/15/17 08:19 Dose: 40 mg Potassium Phos/Sodium Phos (Neutra-Phos) 1 pkt PO DAILY [facility] Last Admin: 03/15/17 08:19 Dose: 1 pkt Zolpidem Tartrate (Ambien) 5 mg PO HS PRN PRN Reason: Sleep Last Admin: 03/14/17 22:48 Dose: 5 mg - Labs Labs: 03/13/17 06:34 03/08/17 05:20
--- NOTE | 2017-03-15 16:19 | CP.PCM.PN ---
Subjective - Date & Time of Evaluation Date of Evaluation: 03/15/17 Time of Evaluation: 14:09 - Subjective Subjective: I D NOTE PATIENT ASLEEP WHEN VISITED, DIFFICULT TO [facility] TOMORROW Objective - Vital Signs/Intake and Output Vital Signs (last 24 hours): Temp Pulse Resp BP Pulse Ox 98.2 F 92 H 20 124/79 97 03/15/17 10:00 03/15/17 10:00 03/15/17 10:00 03/15/17 10:00 03/15/17 10:00 - Medications Medications: Current Medications Acetaminophen (Tylenol 325mg Tab) 650 mg PO Q6 PRN PRN Reason: Fever >100.4 F Last Admin: 03/06/17 02:49 Dose: 650 mg Acetaminophen (Tylenol 325mg Tab) 650 mg PO Q4 PRN PRN Reason: Pain, Mild (1-3) Last Admin: 03/13/17 20:07 Dose: 650 mg Amoxicillin/Clavulanate Potassium (Augmentin 875 Mg-125 Mg Tab) 1 tab PO Q12 [facility] PRN Reason: Protocol Last Admin: 03/15/17 08:19 Dose: 1 tab Camphor/Menthol (Bengay) 1 applic TOP QID PRN PRN Reason: Muscle spasm Dexamethasone (Decadron) 4 mg PO Q12 [facility] Last Admin: 03/15/17 08:19 Dose: 4 mg Docusate Sodium (Colace) 100 mg PO BID [facility] Last Admin: 03/15/17 08:19 Dose: 100 mg Ferrous Sulfate (Feosol) 325 mg PO BID [facility] Last Admin: 03/15/17 08:19 Dose: 325 mg Ibuprofen (Motrin Tab) 800 mg PO Q8 PRN PRN Reason: Pain, severe (8-10) Last Admin: 03/15/17 12:47 Dose: 800 mg Lactobacillus Acidophilus (Bacid Acidophilus) 1 cap PO BID [facility] Last Admin: 03/15/17 08:23 Dose: 1 cap Levetiracetam (Keppra) 500 mg PO BID [facility] Last Admin: 03/15/17 08:19 Dose: 500 mg Magnesium Hydroxide (Milk Of Magnesia) 30 ml PO DAILY PRN PRN Reason: Other Magnesium Oxide (Mag-Ox) 400 mg PO BID [facility] Last Admin: 03/15/17 08:19 Dose: 400 mg Megestrol Acetate (Megace) 400 mg PO DAILY [facility] Last Admin: 03/15/17 08:18 Dose: 400 mg Metoprolol Tartrate (Lopressor) 25 mg PO Q12 [facility] Last Admin: 03/15/17 08:19 Dose: 25 mg Nystatin (Nystop Topical Powder) 1 applic TOP TID [facility] Last Admin: 03/15/17 12:47 Dose: 1 applic Pantoprazole Sodium (Protonix Ec Tab) 40 mg PO DAILY [facility] Last Admin: 03/15/17 08:19 Dose: 40 mg Potassium Phos/Sodium Phos (Neutra-Phos) 1 pkt PO DAILY [facility] Last Admin: 03/15/17 08:19 Dose: 1 pkt Zolpidem Tartrate (Ambien) 5 mg PO HS PRN PRN Reason: Sleep Last Admin: 03/14/17 22:48 Dose: 5 mg - Labs Labs: 03/13/17 06:34 03/08/17 05:20
[2017-03-16 06:27] LABS: BASO % 0.6 % (0.0-2.0); EOS % 0.2 % (0.0-4.0); HEMATOCRIT 27.3 % (35.0-51.0); LYMPH # 0.7 K/uL (1.0-4.3); LYMPH % 11.4 % (20.0-40.0); MEAN CORPUSCULAR HEMOGLOBIN 30.2 pg (27.0-31.0); MEAN CORPUSCULAR HGB CONC 32.8 g/dL (33.0-37.0); MEAN PLATELET VOLUME 8.5 fl (7.2-11.7); MONO # 0.8 K/uL (0.0-0.8); NEUT # 4.9 K/uL (1.8-7.0); NEUT % 74.8 % (50.0-75.0); RED CELL DISTRIBUTION WIDTH 18.2 % (11.5-14.5); WHITE BLOOD COUNT 6.5 K/uL (4.8-10.8)
[2017-03-16 06:40] LABS: ALKALINE PHOSPHATASE 87 U/L (38-126); ALT/SGPT 30 U/L (21-72); AST/SGOT 36 U/L (17-59); BLOOD UREA NITROGEN 42 mg/dl (9-20); CALCIUM 11.7 mg/dL (8.4-10.2); CARBON DIOXIDE 29 mmol/L (22-30); CHLORIDE 105 mmol/L (98-107); GFR AFRICAN-AMERICAN > 60; GLUCOSE,RANDOM 100 mg/dL (75-110); POTASSIUM 4.1 MMOL/L (3.6-5.0); SODIUM 141 mmol/l (132-148); TOTAL PROTEIN 6.3 G/DL (6.3-8.2)
[2017-03-16 07:52] VITALS: BP 152/68; PULSE 93; O2SAT 99
[2017-03-16] MEDS: Pantoprazole 40 mg EC Tab PO SCH (08:34)
[2017-03-16] MEDS: Magnesium Oxide 400 mg Tab UD PO SCH (08:34)
[2017-03-16] MEDS: Megestrol Acetate 40 mg/ml Cup PO SCH (08:36)
[2017-03-16] MEDS: Amoxicillin-Clav 875-125 mg Tab PO SCH (08:37)
[2017-03-16] MEDS: Lactobacillus Acidophilus 500 MU Cap PO SCH (08:37)
[2017-03-16] MEDS: Potassium & Sodium Phosphate PO SCH (08:37)
--- NOTE | 2017-03-16 10:54 | CP.PCM.PN ---
Subjective - Date & Time of Evaluation Date of Evaluation: 03/16/17 Time of Evaluation: 10:50 - Subjective Subjective: Asleep this morning. Awakens only momentarily. Appears to respond appropriately when awakened. Vital signs have remained stable, he continues to be afebrile. There is no cyanosis, and only trace dependant edema. Neck is supple and trachea midline. No dullness on percussion of the anterior chest wall. Breath sounds are equally diminished bilaterally. No audible wheezes heard, Awaiting discharge to assistant terminal [facility]. Will discuss with heme/onc. Objective - Vital Signs/Intake and Output Vital Signs (last 24 hours): Temp Pulse Resp BP Pulse Ox 98.0 F 93 H 20 152/68 H 99 03/16/17 07:51 03/16/17 08:34 03/16/17 07:51 03/16/17 08:34 03/16/17 07:51 - Medications Medications: Current Medications Acetaminophen (Tylenol 325mg Tab) 650 mg PO Q6 PRN PRN Reason: Fever >100.4 F Last Admin: 03/06/17 02:49 Dose: 650 mg Acetaminophen (Tylenol 325mg Tab) 650 mg PO Q4 PRN PRN Reason: Pain, Mild (1-3) Last Admin: 03/13/17 20:07 Dose: 650 mg Amoxicillin/Clavulanate Potassium (Augmentin 875 Mg-125 Mg Tab) 1 tab PO Q12 [facility] PRN Reason: Protocol Last Admin: 03/16/17 08:37 Dose: 1 tab Camphor/Menthol (Bengay) 1 applic TOP QID PRN PRN Reason: Muscle spasm Dexamethasone (Decadron) 4 mg PO Q12 [facility] Last Admin: 03/16/17 08:35 Dose: 4 mg Docusate Sodium (Colace) 100 mg PO BID [facility] Last Admin: 03/16/17 08:35 Dose: 100 mg Ferrous Sulfate (Feosol) 325 mg PO BID [facility] Last Admin: 03/16/17 08:34 Dose: 325 mg Ibuprofen (Motrin Tab) 800 mg PO Q8 PRN PRN Reason: Pain, severe (8-10) Last Admin: 03/16/17 08:36 Dose: 800 mg Lactobacillus Acidophilus (Bacid Acidophilus) 1 cap PO BID [facility] Last Admin: 03/16/17 08:37 Dose: 1 cap Levetiracetam (Keppra) 500 mg PO BID [facility] Last Admin: 03/16/17 08:34 Dose: 500 mg Magnesium Hydroxide (Milk Of Magnesia) 30 ml PO DAILY PRN PRN Reason: Other Magnesium Oxide (Mag-Ox) 400 mg PO BID [facility] Last Admin: 03/16/17 08:34 Dose: 400 mg Megestrol Acetate (Megace) 400 mg PO DAILY [facility] Last Admin: 03/16/17 08:36 Dose: 400 mg Metoprolol Tartrate (Lopressor) 25 mg PO Q12 [facility] Last Admin: 03/16/17 08:34 Dose: 25 mg Nystatin (Nystop Topical Powder) 1 applic TOP TID [facility] Last Admin: 03/16/17 08:34 Dose: 1 applic Pantoprazole Sodium (Protonix Ec Tab) 40 mg PO DAILY [facility] Last Admin: 03/16/17 08:34 Dose: 40 mg Potassium Phos/Sodium Phos (Neutra-Phos) 1 pkt PO DAILY [facility] Last Admin: 03/16/17 08:37 Dose: 1 pkt Zolpidem Tartrate (Ambien) 5 mg PO HS PRN PRN Reason: Sleep Last Admin: 03/14/17 22:48 Dose: 5 mg - Labs Labs: 03/16/17 05:45 03/16/17 05:45
[2017-03-16 12:51] VITALS: TEMP 98
== END 2017-03-16 14:30 | DRG 555 ==
LOC: H.TCU 18:18
PROVIDERS: ADMIT Student in an Organized Health Care Education/Training Program; ATTEND Student in an Organized Health Care Education/Training Program
PROC: F07Z9FZ Gait Training/Functional Ambulation Treatment using Assistive, Adaptive, Supportive or Protective Equipment (ICD-10-PCS; principal; 2017-03-05)
PROC: F08Z4FZ Home Management Treatment using Assistive, Adaptive, Supportive or Protective Equipment (ICD-10-PCS; 2017-03-05)
PROC: F07M6FZ Therapeutic Exercise Treatment of Musculoskeletal System - Whole Body using Assistive, Adaptive, Supportive or Protective Equipment (ICD-10-PCS; 2017-03-05)
PROC: D0Y07ZZ Contact Radiation of Brain (ICD-10-PCS; 2017-03-05)
DX: M62.81 Muscle weakness (generalized) (principal); G93.6 Cerebral edema; C78.00 Secondary malignant neoplasm of unspecified lung; C78.2 Secondary malignant neoplasm of pleura; C79.31 Secondary malignant neoplasm of brain; D70.1 Agranulocytosis secondary to cancer chemotherapy; M00.9 Pyogenic arthritis, unspecified; I48.91 Unspecified atrial fibrillation; E83.42 Hypomagnesemia; R47.01 Aphasia; J44.9 Chronic obstructive pulmonary disease, unspecified; H91.90 Unspecified hearing loss, unspecified ear; I10 Essential (primary) hypertension; L30.9 Dermatitis, unspecified; R62.7 Adult failure to thrive; Z85.828 Personal history of other malignant neoplasm of skin; Z87.01 Personal history of pneumonia (recurrent); Z87.891 Personal history of nicotine dependence; Z92.3 Personal history of irradiation; Z96.652 Presence of left artificial knee joint; Z89.421 Acquired absence of other right toe(s); K29.70 Gastritis, unspecified, without bleeding; M25.462 Effusion, left knee